=== PATIENT | male | born 1950 | race Caucasian/White ===

== ENCOUNTER → 2017-12-17 08:26 | Outpatient (CLI) | payer OTHER, SELFPAY ==
[2017-12-17 09:25] LABS: Add Manual Diff / Slide Review NO; Basophils Percent Auto 0.6 % (0-2); Eosinophils Percent Auto 2.1 % (2-4); Hematocrit 42.2 % (41-53); Hemoglobin 14.7 g/dL (13.5-17.5); Lymphocytes Percent Auto 22.2 % (25-40); Mean Corpuscular HGB Conc 34.8 % (30-36); Mean Corpuscular Volume 94.7 fL (80-100); Monocytes Percent Auto 8.7 % (3-14); Neutrophils Absolute Auto 3600 /uL (3000-5900); Neutrophils Percent Auto 66.4 % (50-75); Platelet Count 178 X10^3/uL (150-400); Red Blood Cell Count 4.46 X10^6/uL (4.5-5.9); Red Cell Distribution Width 14.5 % (11.6-14.8); White Blood Cell Count 5.4 X10^3/uL (4.5-11.0)
[2017-12-17 09:51] LABS: Alanine Aminotransferase 51 IU/L (21-72); Albumin 4.2 g/dL (3.5-5.0); Albumin Globulin Ratio 1.5 (1.0-2.8); Alkaline Phosphatase 45 U/L (38-126); Aspartate Aminotransferase 37 IU/L (17-59); BUN Creatinine Ratio 18.2 (6-22); Bilirubin Total 0.7 mg/dL (0.2-1.3); Blood Urea Nitrogen 20 mg/dL (9-20); Calcium 9.7 mg/dL (8.4-10.2); Carbon Dioxide 30 mmol/L (22-32); Chloride 98 mmol/L (98-107); Cholesterol 125 mg/dL (140-199); Estimated Glomerular Filt Rate > 60.0 mL/min (>60); Globulin 2.8 g/dL (1.7-4.1); Glucose 107 mg/dL (80-110); HDL Cholesterol 33 mg/dL (40-60); HEMOLYSIS < 15 (0-50); LDL Cholesterol Calculated 61 mg/dL (<100); Potassium 4.3 mmol/L (3.4-5.1); Sodium 139 mmol/L (137-145); Triglycerides 153 mg/dL (35-150)
[2017-12-17 10:20] LABS: Prostate Specific Antigen Scrn 1.99 ng/mL (0.1-4.0)
== END ==
PROVIDERS: Family Provider Internal Medicine; PCP Internal Medicine; Visit Provider Internal Medicine
DX: E66.9 Obesity, unspecified (principal); E78.00 Pure hypercholesterolemia, unspecified
CPT/HCPCS: 36415; 80053; 80061; 85025; G0103

== ENCOUNTER → 2018-02-04 15:55 | Outpatient (CLI) | payer OTHER, SELFPAY ==
--- NOTE | 2018-02-04 | DI.RAD.S_ITS ---
PROCEDURE: XR CHEST 2V INDICATIONS: ACUTE BRONCHITIS TECHNIQUE: 2 views of the chest were acquired. COMPARISON: [facility], , CHEST 2 VIEW, 06/24/2017, 9:55. FINDINGS: Surgical changes and devices: None. Lungs and pleura: No pleural effusions or pneumothorax. Increased bronchovascular markings and bilateral hilar region are seen with mild bronchial wall thickening consistent with reactive airway disease. No definite focal infiltrate. Mediastinum: Mediastinal contours are normal. Heart size is normal. Bones and chest wall: No suspicious bony abnormalities. Soft tissues appear unremarkable. IMPRESSION: Findings consistent with reactive airway disease such as bronchitis or asthma. No definite focal infiltrate. Dictated by: Jamel Castillo M.D. on 02/04/2018 at 16:27 Approved by: Jamel Castillo M.D. on 02/04/2018 at 16:28
== END ==
PROVIDERS: Family Provider Internal Medicine; PCP Internal Medicine; Visit Provider Student in an Organized Health Care Education/Training Program
DX: J20.9 Acute bronchitis, unspecified (principal)
CPT/HCPCS: 71046

== ENCOUNTER → 2018-06-24 08:55 | Outpatient (CLI) | payer OTHER, SELFPAY ==
[2018-06-24 09:29] LABS: Add Manual Diff / Slide Review NO; Basophils Absolute Auto 0 /uL (0-100); Basophils Percent Auto 0.6 % (0-2); Eosinophils Absolute Auto 200 /uL (0-450); Eosinophils Percent Auto 3.1 % (2-4); Hematocrit 42.8 % (41-53); Hemoglobin 14.3 g/dL (13.5-17.5); Lymphocytes Absolute Auto 1400 /uL (1100-4500); Lymphocytes Percent Auto 24.7 % (25-40); Mean Corpuscular HGB Conc 33.4 % (30-36); Mean Corpuscular Hemoglobin 31.5 PG (26-34); Mean Corpuscular Volume 94.4 fL (80-100); Monocytes Absolute Auto 600 /uL (0-900); Monocytes Percent Auto 9.9 % (3-14); Neutrophils Absolute Auto 3600 /uL (1500-7000); Neutrophils Percent Auto 61.7 % (50-75); Platelet Count 226 X10^3/uL (150-400); Red Blood Cell Count 4.53 X10^6/uL (4.5-5.9); Red Cell Distribution Width 14.5 % (11.6-14.8); White Blood Cell Count 5.8 X10^3/uL (4.5-11.0)
[2018-06-24 09:39] LABS: Alanine Aminotransferase 53 IU/L (21-72); Albumin 4.4 g/dL (3.5-5.0); Albumin Globulin Ratio 1.4 (1.0-2.8); Alkaline Phosphatase 50 U/L (38-126); Aspartate Aminotransferase 39 IU/L (17-59); BUN Creatinine Ratio 21.8 (6-22); Blood Urea Nitrogen 24 mg/dL (9-20); Calcium 9.4 mg/dL (8.4-10.2); Carbon Dioxide 26 mmol/L (22-32); Chloride 101 mmol/L (98-107); Estimated Glomerular Filt Rate > 60.0 mL/min (>60); Globulin 3.2 g/dL (1.7-4.1); Glucose 108 mg/dL (80-110); HEMOLYSIS 19 (0-50); Potassium 4.1 mmol/L (3.4-5.1); Sodium 137 mmol/L (137-145); Total Protein 7.6 g/dL (6.3-8.2)
== END ==
PROVIDERS: Family Provider Internal Medicine; PCP Internal Medicine; Visit Provider Internal Medicine
DX: E78.00 Pure hypercholesterolemia, unspecified (principal); I10 Essential (primary) hypertension
CPT/HCPCS: 36415; 80053; 85025

== ENCOUNTER → 2018-12-29 09:12 | Outpatient (CLI) | payer OTHER, SELFPAY ==
[2018-12-29 10:43] LABS: Blood Urea Nitrogen 22 mg/dL (9-20); Calcium 9.8 mg/dL (8.4-10.2); Carbon Dioxide 27 mmol/L (22-32); Chloride 100 mmol/L (98-107); Cholesterol 154 mg/dL (140-199); Estimated Glomerular Filt Rate > 60.0 mL/min (>60); Glucose 102 mg/dL (80-110); HDL Cholesterol 34 mg/dL (40-60); HEMOLYSIS < 15 (0-50); LDL Cholesterol Calculated 86 mg/dL (<100); Potassium 4.1 mmol/L (3.4-5.1); Sodium 138 mmol/L (137-145); Triglycerides 172 mg/dL (35-150)
[2018-12-29 11:13] LABS: Prostate Specific Antigen Scrn 2.01 ng/mL (0.1-4.0)
== END ==
PROVIDERS: PCP Internal Medicine; Visit Provider Internal Medicine
DX: M15.0 Primary generalized (osteo)arthritis (principal); E78.00 Pure hypercholesterolemia, unspecified; F41.1 Generalized anxiety disorder; I10 Essential (primary) hypertension; Z12.5 Encounter for screening for malignant neoplasm of prostate
CPT/HCPCS: 36415; 80048; 80061; G0103

== ENCOUNTER → 2019-01-05 10:01 | Outpatient (CLI) | payer OTHER, SELFPAY ==
--- NOTE | 2019-01-05 | DI.RAD.S_ITS ---
PROCEDURE: XR HIP W PEL IF DONE BILAT 2V INDICATIONS: LEFT HIP PAIN TECHNIQUE: AP pelvis with lateral view(s) of the left and right hip(s). [facility] 14:56. FINDINGS: Bones: No fractures or dislocations. Pelvic ring appears intact. No suspicious bony lesions. Moderate bilateral hip degeneration. Lower lumbar spondylosis. Soft tissues: The visualized bowel gas pattern is normal. No suspicious soft tissue calcifications. IMPRESSION: Moderate bilateral hip degeneration, grossly unchanged since 12/01/13. Dictated by: Esequiel Gupta M.D. on 01/05/2019 at 13:59 Approved by: Esequiel Gupta M.D. on 01/05/2019 at 14:00
== END ==
PROVIDERS: PCP Internal Medicine; Visit Provider Internal Medicine
DX: M25.552 Pain in left hip (principal); M16.0 Bilateral primary osteoarthritis of hip
CPT/HCPCS: 73521

== ENCOUNTER 2019-04-19 11:15 | Outpatient (RCR) | payer OTHER, SELFPAY ==
--- NOTE | 2019-03-03 18:30 | PT.OIE ---
Current Diagnoses Unilateral primary osteoarthritis, left hip (03/03/19) Strain of muscle, fascia and tendon of left hip, initial encounter (03/03/19) Visit Care Team Role Provider Type Alejandro Gallegos MD Primary Care Provider Physician Specialty: Internal Medicine Address: [address] [place] [address], [id number] Email: [email or web address] Matthew Cannon MD Attending Provider Physician Specialty: Orthopedic Surgery Address: [address] [place] [address], [address] Email: [email or web address] Physical Therapy Initial Evaluation PT-OP-A Visit Information Start: 03/03/19 14:55 Freq: Status: Active Protocol: Document 03/03/19 12:48 MB (Rec: 03/03/19 15:04 MB [id number]) Out-Patient Physical Therapy Visit Information Visit Information Visit Type Initial Evaluation Visit Start Time 12:48 Visit Stop Time 13:18 Total Visit Minutes 30 Visit Number 1 Number of SPECIAL WARFARE BOAT OPERATOR Visits 0 Evaluation Information Evaluation Date 03/03/19 PT-OP-B Current Condition Start: 03/03/19 14:55 Freq: Status: Active Protocol: Document 03/03/19 12:48 MB (Rec: 03/03/19 15:04 MB [id number]) Current Condition History of Current Condition Onset Date 5 months Current Complaints LBP and left groin discomfort History of Current Condition Pt reports 5 months of left groin discomfort that started when he was using the elliptical at the gym. Left hip x-ray 01/10/19 revealed mod B hip degenerative changes. Pt reports getting in and out of a blake, getting in and out of the car and standing increase the pain. He describes left hip adduction/ abduction, ER increasing pain. Pt states that wearing a belt increased pain across his low back and left groin and that suspenders help. He reports hx R TKR 2015 and received PT, back sxs in and history of left foot drop, great toe extensor tone, calf cramps, history of crush injury right foot. He denies paresthesias in his legs. His pain increases during the day. It does wake him up hourly. 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 See history of current condition for further details. Patient Reported Progress Same Patient Questionnaires Lower Extremity Functional Scale LEFS Score 23/80 LEFS Impairment 60 to 79% Impaired (Score 17- 31) OP-PT Pain Assessment Location LB and left groin Pain Aggravating Factors Standing Other Pain Aggravating Factors Getting in and out of car, getting in and out of blake, wearing belt PT-OP-D Balance Start: 03/03/19 14:55 Freq: Status: Active Protocol: Document 03/03/19 12:48 MB (Rec: 03/03/19 18:26 MB [id number]) Balance Tests Other Other Balance Tests Performed Pt states that he has to wear shoes d/t old crush injury of right foot. Romberg and Romberg with eyes closed 30 sec. R SLS 7 sec and pt cannot get into left SLS position. PT-OP-J Posture/Palpation/Skin Start: 03/03/19 14:55 Freq: Status: Active Protocol: Document 03/03/19 12:48 MB (Rec: 03/03/19 18:26 MB [id number]) Posture Evaluation Comments Posture Comments Standing: most notable comment is that his trunk translates to the left (SB and rotational ) and his right shoulder and right iliac crest are higher than the left. Also, tragus 2 in front of AC joint, anterior tilt pelvis. PT-OP-M Strength Start: 03/03/19 14:55 Freq: Status: Active Protocol: Document 03/03/19 12:48 MB (Rec: 03/03/19 18:26 MB [id number]) Hip Strength Hip Manual Muscle Testing Left Flexion (L2) 2- Poor- Abduction 3- Fair- Comments Supine Right Flexion (L2) 5 Normal Extension (S1) 4 Good Comments Supine Knee Strength Knee Manual Muscle Testing Left Flexion (S2) 5 Normal Extension (L3) 5 Normal Comments Supine Right Flexion (S2) 5 Normal Extension (L3) 5 Normal Comments Supine Ankle/Foot Strength Ankle and Foot Manual Muscle Testing Left Dorsiflexion (L4) 4 Good Plantarflexion (S1) 4 Good Inversion 4 Good Eversion (S1) 4 Good Comments Great toe 2-/5, tone in extensors Right Dorsiflexion (L4) 5 Normal Plantarflexion (S1) 5 Normal Inversion 5 Normal Eversion (S1) 5 Normal Comments Great toe extension 4/5 PT-OP-T Assessment and Plan Start: 03/03/19 14:55 Freq: Status: Active Protocol: Document 03/03/19 12:48 MB (Rec: 03/03/19 18:26 MB [id number]) Physical Therapy Assessment Rehab Potential Rehabilitation Potential Good Evaluation Complexity Number of Personal Factors/Comorbidities 1-2 Number of Body Systems Impaired 1-2 Impairments Impairments Balance,Gait,Pain,Posture,ROM, Soft Tissue Mobility,Strength, Tone Goals 5 Retirement Goal (LTG) Pt will perform progressive HEP with I by 05/03/19. LTG Duration 8 weeks 4 Retirement Goal (LTG) Pt will present with an improved LE functional index score reflecting no more than 40% impairment by 05/03/19. LTG Duration 8 weeks 3 Retirement Goal (LTG) Pt will report a 75% improvement in LB and left groin pain by 05/03/19. LTG Duration 8 weeks 2 Impairment Weakness Retirement Goal (LTG) Pt will present with B hip abduction and flexion to 5/5 by 05/03/19. LTG Duration 8 weeks 1 Impairment Decreased balance Billet Checker Goal (LTG) Pt will be able to perform B Tandem for 30 sec by 05/03/19. LTG Duration 8 weeks Assessment Summary Assessment Pt is a 68 y/o male presenting with LB and left groin pain. He presents with postural changes, pelvic obliquities, weakness, decreased flexibility and poor balance. He will benefit from PT for balance, strengthening, flexibility, pelvic realignment and manual treatments. Physical Therapy Plan Frequency and Duration Frequency of Treatment 2x/Week Duration of Treatment 8 weeks Plan of Care Start Date 03/03/19 Plan of Care End Date 05/03/19 Therapeutic Interventions Therapeutic Interventions Aquatic Therapy,Balance Training,Coordination Training ,Gait Training,Home Exercise Program,Joint Mobilizations, Manual Therapy,Neuromuscular Re-education,Patient/Caregiver Education,Self-Care/Home Management,Soft Tissue Mobilization,Taping, Therapeutic Exercises Modalities Cold Pack/Ice Massage,Electric Stimulation,Hot Packs, Ultrasound Next Visit Focus/Plan Next Note Type Treatment Note Next Visit Plan Initiated pelvic realignment exercises versus flexibility
--- NOTE | 2019-03-03 18:30 | PT.OPPOC ---
Current Diagnoses Unilateral primary osteoarthritis, left hip (03/03/19) Strain of muscle, fascia and tendon of left hip, initial encounter (03/03/19) Visit Care Team Role Provider Type Alejandro Gallegos MD Primary Care Provider Physician Specialty: Internal Medicine Address: [address] [place] [address], [address] Email: [email or web address] Matthew Cannon MD Attending Provider Physician Specialty: Orthopedic Surgery Address: [address] [place] [address], [address] Email: [email or web address] Plan Of Care PT-OP-T Assessment and Plan Start: 03/03/19 14:55 Freq: Status: Active Protocol: Document 03/03/19 12:48 MB (Rec: 03/03/19 18:26 MB [id number]) Physical Therapy Assessment Rehab Potential Rehabilitation Potential Good Evaluation Complexity Number of Personal Factors/Comorbidities 1-2 Number of Body Systems Impaired 1-2 Impairments Impairments Balance,Gait,Pain,Posture,ROM, Soft Tissue Mobility,Strength, Tone Goals 5 Custodial Goal (LTG) Pt will perform progressive HEP with I by 05/03/19. LTG Duration 8 weeks 4 Physician Recruiter Goal (LTG) Pt will present with an improved LE functional index score reflecting no more than 40% impairment by 05/03/19. LTG Duration 8 weeks 3 Custodial Goal (LTG) Pt will report a 75% improvement in LB and left groin pain by 05/03/19. LTG Duration 8 weeks 2 Impairment Weakness Physician Recruiter Goal (LTG) Pt will present with B hip abduction and flexion to 5/5 by 05/03/19. LTG Duration 8 weeks 1 Impairment Decreased balance Physician Recruiter Goal (LTG) Pt will be able to perform B Tandem for 30 sec by 05/03/19. LTG Duration 8 weeks Assessment Summary Assessment Pt is a 68 y/o male presenting with LB and left groin pain. He presents with postural changes, pelvic obliquities, weakness, decreased flexibility and poor balance. He will benefit from PT for balance, strengthening, flexibility, pelvic realignment and manual treatments. Physical Therapy Plan Frequency and Duration Frequency of Treatment 2x/Week Duration of Treatment 8 weeks Plan of Care Start Date 03/03/19 Plan of Care End Date 05/03/19 Therapeutic Interventions Therapeutic Interventions Aquatic Therapy,Balance Training,Coordination Training ,Gait Training,Home Exercise Program,Joint Mobilizations, Manual Therapy,Neuromuscular Re-education,Patient/Caregiver Education,Self-Care/Home Management,Soft Tissue Mobilization,Taping, Therapeutic Exercises Modalities Cold Pack/Ice Massage,Electric Stimulation,Hot Packs, Ultrasound Next Visit Focus/Plan Next Note Type Treatment Note Next Visit Plan Initiated pelvic realignment exercises versus flexibility Plan of Care Dates Plan of Care Start Date 03/03/19 Plan of Care End Date 05/03/19
--- NOTE | 2019-03-05 12:57 | PT.OTN ---
Current Diagnoses Unilateral primary osteoarthritis, left hip (03/05/19) Strain of muscle, fascia and tendon of left hip, initial encounter (03/05/19) Physical Therapy Treatment Note PT-OP-A Visit Information Start: 03/03/19 14:55 Freq: Status: Active Protocol: Document 03/05/19 12:13 MB (Rec: 03/05/19 12:34 MB [id number]) Out-Patient Physical Therapy Visit Information Visit Information Visit Type Treatment Note Visit Start Time 12:13 Visit Stop Time 12:53 Total Visit Minutes 40 Visit Number 2/15 Number of DRILL OPERATOR Visits 0 PT-OP-B Current Condition Start: 03/03/19 14:55 Freq: Status: Active Protocol: Document 03/03/19 12:48 MB (Rec: 03/03/19 15:04 MB [id number]) Current Condition History of Current Condition Onset Date 5 months Current Complaints LBP and left groin discomfort History of Current Condition Pt reports 5 months of left groin discomfort that started when he was using the elliptical at the gym. Left hip x-ray 01/10/19 revealed mod B hip degenerative changes. Pt reports getting in and out of a blake, getting in and out of the car and standing increase the pain. He describes left hip adduction/ abduction, ER increasing pain. Pt states that wearing a belt increased pain across his low back and left groin and that suspenders help. He reports hx R TKR 2015 and received PT, back sxs in and history of left foot drop, great toe extensor tone, calf cramps, history of crush injury right foot. He denies paresthesias in his legs. His pain increases during the day. It does wake him up hourly. 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 He was sore after walking yesterday. He wonders about the PT plan. PT-OP-D Balance Start: 03/03/19 14:55 Freq: Status: Active Protocol: Document 03/03/19 12:48 MB (Rec: 03/03/19 18:26 MB [id number]) Balance Tests Other Other Balance Tests Performed Pt states that he has to wear shoes d/t old crush injury of right foot. Romberg and Romberg with eyes closed 30 sec. R SLS 7 sec and pt cannot get into left SLS position. PT-OP-J Posture/Palpation/Skin Start: 03/03/19 14:55 Freq: Status: Active Protocol: Document 03/03/19 12:48 MB (Rec: 03/03/19 18:26 MB [id number]) Posture Evaluation Comments Posture Comments Standing: most notable comment is that his trunk translates to the left (SB and rotational ) and his right shoulder and right iliac crest are higher than the left. Also, tragus 2 in front of AC joint, anterior tilt pelvis. PT-OP-M Strength Start: 03/03/19 14:55 Freq: Status: Active Protocol: Document 03/03/19 12:48 MB (Rec: 03/03/19 18:26 MB [id number]) Hip Strength Hip Manual Muscle Testing Left Flexion (L2) 2- Poor- Abduction 3- Fair- Comments Supine Right Flexion (L2) 5 Normal Extension (S1) 4 Good Comments Supine Knee Strength Knee Manual Muscle Testing Left Flexion (S2) 5 Normal Extension (L3) 5 Normal Comments Supine Right Flexion (S2) 5 Normal Extension (L3) 5 Normal Comments Supine Ankle/Foot Strength Ankle and Foot Manual Muscle Testing Left Dorsiflexion (L4) 4 Good Plantarflexion (S1) 4 Good Inversion 4 Good Eversion (S1) 4 Good Comments Great toe 2-/5, tone in extensors Right Dorsiflexion (L4) 5 Normal Plantarflexion (S1) 5 Normal Inversion 5 Normal Eversion (S1) 5 Normal Comments Great toe extension 4/5 PT-OP-Q Treatments Start: 03/03/19 14:55 Freq: Status: Active Protocol: Document 03/05/19 12:13 MB (Rec: 03/05/19 12:38 MB [id number]) Cardio Equipment Recumbent Stepper (Sci-Fit) Duration (Minutes) 10 Resistance 1.5-2 Therapeutic Exercises Supine Exercises Pelvic realignment ex Comments Pelvic realignment exercises Hamstring, calf and AP stretch Comments Hamstring, calf and AP stretch with belt, abd/add PT-OP-T Assessment and Plan Start: 03/03/19 14:55 Freq: Status: Active Protocol: Document 03/05/19 12:13 MB (Rec: 03/05/19 12:38 MB [id number]) Physical Therapy Plan Frequency and Duration Frequency of Treatment 2x/Week Duration of Treatment 8 weeks Plan of Care Start Date 03/03/19 Plan of Care End Date 05/03/19 Therapeutic Interventions Therapeutic Interventions Aquatic Therapy,Balance Training,Coordination Training ,Gait Training,Home Exercise Program,Joint Mobilizations, Manual Therapy,Neuromuscular Re-education,Patient/Caregiver Education,Self-Care/Home Management,Soft Tissue Mobilization,Taping, Therapeutic Exercises Modalities Cold Pack/Ice Massage,Electric Stimulation,Hot Packs, Ultrasound Next Visit Focus/Plan Next Note Type Treatment Note Next Visit Plan Consider hip flexor stretch and manual work
--- NOTE | 2019-03-09 11:14 | PT.OTN ---
Current Diagnoses Unilateral primary osteoarthritis, left hip (03/09/19) Strain of muscle, fascia and tendon of left hip, initial encounter (03/09/19) Physical Therapy Treatment Note PT-OP-A Visit Information Start: 03/03/19 14:55 Freq: Status: Active Protocol: Document 03/09/19 10:31 MB (Rec: 03/09/19 11:13 MB [id number]) Out-Patient Physical Therapy Visit Information Visit Information Visit Type Treatment Note Visit Start Time 10:31 Visit Stop Time 11:11 Total Visit Minutes 40 Visit Number 315 Number of COPY MACHINE OPERATOR Visits 0 PT-OP-B Current Condition Start: 03/03/19 14:55 Freq: Status: Active Protocol: Document 03/03/19 12:48 MB (Rec: 03/03/19 15:04 MB [id number]) Current Condition History of Current Condition Onset Date 5 months Current Complaints LBP and left groin discomfort History of Current Condition Pt reports 5 months of left groin discomfort that started when he was using the elliptical at the gym. Left hip x-ray 01/10/19 revealed mod B hip degenerative changes. Pt reports getting in and out of a blake, getting in and out of the car and standing increase the pain. He describes left hip adduction/ abduction, ER increasing pain. Pt states that wearing a belt increased pain across his low back and left groin and that suspenders help. He reports hx R TKR 2015 and received PT, back sxs in and history of left foot drop, great toe extensor tone, calf cramps, history of crush injury right foot. He denies paresthesias in his legs. His pain increases during the day. It does wake him up hourly. Prior Treatments and Tests PT, good response Right knee and back sxs Treatment Goals Patient/Caregiver Goals To decrease pain and be able to get back on his sail boat Personal Factors Other Personal Factors That May Effect History of multi-joint changes Therapy/Recovery and pain, back, right knee surgeries PT-OP-C Subjective Start: 03/03/19 14:55 Freq: Status: Active Protocol: Document 03/09/19 10:31 MB (Rec: 03/09/19 11:13 MB [id number]) OP-PT Subjective Patient Comments Patient Comments Pt did not sleep well two nights ago. He is usually what caused pain across the top of his foot. He has toe nail fungus. PT-OP-D Balance Start: 03/03/19 14:55 Freq: Status: Active Protocol: Document 03/03/19 12:48 MB (Rec: 03/03/19 18:26 MB [id number]) Balance Tests Other Other Balance Tests Performed Pt states that he has to wear shoes d/t old crush injury of right foot. Romberg and Romberg with eyes closed 30 sec. R SLS 7 sec and pt cannot get into left SLS position. PT-OP-J Posture/Palpation/Skin Start: 03/03/19 14:55 Freq: Status: Active Protocol: Document 03/03/19 12:48 MB (Rec: 03/03/19 18:26 MB [id number]) Posture Evaluation Comments Posture Comments Standing: most notable comment is that his trunk translates to the left (SB and rotational ) and his right shoulder and right iliac crest are higher than the left. Also, tragus 2 in front of AC joint, anterior tilt pelvis. PT-OP-M Strength Start: 03/03/19 14:55 Freq: Status: Active Protocol: Document 03/03/19 12:48 MB (Rec: 03/03/19 18:26 MB [id number]) Hip Strength Hip Manual Muscle Testing Left Flexion (L2) 2- Poor- Abduction 3- Fair- Comments Supine Right Flexion (L2) 5 Normal Extension (S1) 4 Good Comments Supine Knee Strength Knee Manual Muscle Testing Left Flexion (S2) 5 Normal Extension (L3) 5 Normal Comments Supine Right Flexion (S2) 5 Normal Extension (L3) 5 Normal Comments Supine Ankle/Foot Strength Ankle and Foot Manual Muscle Testing Left Dorsiflexion (L4) 4 Good Plantarflexion (S1) 4 Good Inversion 4 Good Eversion (S1) 4 Good Comments Great toe 2-/5, tone in extensors Right Dorsiflexion (L4) 5 Normal Plantarflexion (S1) 5 Normal Inversion 5 Normal Eversion (S1) 5 Normal Comments Great toe extension 4/5 PT-OP-Q Treatments Start: 03/03/19 14:55 Freq: Status: Active Protocol: Document 03/09/19 10:31 MB (Rec: 03/09/19 11:13 MB [id number]) Therapeutic Exercises Supine Exercises Pelvic realignment ex Comments Pelvic realignment exercises Other Exercises Hip flexor stretch Comments Trino stretch Manual Therapy Treatment Manual Techniques STM iliopsoas and quads with MWM Comments Pt hook lying--slides heel up and down mat or flexes and bends knees over edge for iliopsoas and rectus and vastus lateralis MWM with PT putting pressure on trigger points PT-OP-T Assessment and Plan Start: 03/03/19 14:55 Freq: Status: Active Protocol: Document 03/09/19 10:31 MB (Rec: 03/09/19 11:13 MB [id number]) Physical Therapy Assessment Assessment Summary Assessment Initiated hip flexor stretch this date and manual work. Pt is getting on his boat during the weekends, sleeping there. Physical Therapy Plan Frequency and Duration Frequency of Treatment 2x/Week Duration of Treatment 8 weeks Plan of Care Start Date 03/03/19 Plan of Care End Date 05/03/19 Next Visit Focus/Plan Next Note Type Treatment Note Next Visit Plan Consider core progression in hook lying or standing hip abduction and extension exercises.
--- NOTE | 2019-03-11 11:27 | PT.OTN ---
Current Diagnoses Unilateral primary osteoarthritis, left hip (03/11/19) Strain of muscle, fascia and tendon of left hip, initial encounter (03/11/19) Physical Therapy Treatment Note PT-OP-A Visit Information Start: 03/03/19 14:55 Freq: Status: Active Protocol: Document 03/11/19 10:29 MB (Rec: 03/11/19 11:21 MB [id number]) Out-Patient Physical Therapy Visit Information Visit Information Visit Type Treatment Note Visit Start Time 10: Visit Stop Time 11:14 Total Visit Minutes 45 Visit Number 4/15 Number of SHOP TAILOR Visits 0 PT-OP-B Current Condition Start: 03/03/19 14:55 Freq: Status: Active Protocol: Document 03/03/19 12:48 MB (Rec: 03/03/19 15:04 MB [id number]) Current Condition History of Current Condition Onset Date 5 months Current Complaints LBP and left groin discomfort History of Current Condition Pt reports 5 months of left groin discomfort that started when he was using the elliptical at the gym. Left hip x-ray 01/10/19 revealed mod B hip degenerative changes. Pt reports getting in and out of a blake, getting in and out of the car and standing increase the pain. He describes left hip adduction/ abduction, ER increasing pain. Pt states that wearing a belt increased pain across his low back and left groin and that suspenders help. He reports hx R TKR 2015 and received PT, back sxs in and history of left foot drop, great toe extensor tone, calf cramps, history of crush injury right foot. He denies paresthesias in his legs. His pain increases during the day. It does wake him up hourly. 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 PT-OP-D Balance Start: 03/03/19 14:55 Freq: Status: Active Protocol: Document 03/03/19 12:48 MB (Rec: 03/03/19 18:26 MB [id number]) Balance Tests Other Other Balance Tests Performed Pt states that he has to wear shoes d/t old crush injury of right foot. Romberg and Romberg with eyes closed 30 sec. R SLS 7 sec and pt cannot get into left SLS position. PT-OP-J Posture/Palpation/Skin Start: 03/03/19 14:55 Freq: Status: Active Protocol: Document 03/03/19 12:48 MB (Rec: 03/03/19 18:26 MB [id number]) Posture Evaluation Comments Posture Comments Standing: most notable comment is that his trunk translates to the left (SB and rotational ) and his right shoulder and right iliac crest are higher than the left. Also, tragus 2 in front of AC joint, anterior tilt pelvis. PT-OP-M Strength Start: 03/03/19 14:55 Freq: Status: Active Protocol: Document 03/03/19 12:48 MB (Rec: 03/03/19 18:26 MB [id number]) Hip Strength Hip Manual Muscle Testing Left Flexion (L2) 2- Poor- Abduction 3- Fair- Comments Supine Right Flexion (L2) 5 Normal Extension (S1) 4 Good Comments Supine Knee Strength Knee Manual Muscle Testing Left Flexion (S2) 5 Normal Extension (L3) 5 Normal Comments Supine Right Flexion (S2) 5 Normal Extension (L3) 5 Normal Comments Supine Ankle/Foot Strength Ankle and Foot Manual Muscle Testing Left Dorsiflexion (L4) 4 Good Plantarflexion (S1) 4 Good Inversion 4 Good Eversion (S1) 4 Good Comments Great toe 2-/5, tone in extensors Right Dorsiflexion (L4) 5 Normal Plantarflexion (S1) 5 Normal Inversion 5 Normal Eversion (S1) 5 Normal Comments Great toe extension 4/5 PT-OP-Q Treatments Start: 03/03/19 14:55 Freq: Status: Active Protocol: Document 03/11/19 10:29 MB (Rec: 03/11/19 11:21 MB [id number]) Cardio Equipment Bicycle (Upright) Duration (Minutes) 7 Seat Position 10-12 Therapeutic Exercises Supine Exercises Pelvic realignment ex Comments Pelvic realignment exercises Hamstring, calf and AP stretch Comments Hamstring, calf and AP stretch with belt, abd/add Standing Exercises Racquet ball massage glutes, TFL Comments Standing glute and TFL self- massage Other Exercises Hip flexor stretch Comments Trino stretch PT-OP-T Assessment and Plan Start: 03/03/19 14:55 Freq: Status: Active Protocol: Document 03/11/19 10:29 MB (Rec: 03/11/19 11:21 MB [id number]) Physical Therapy Assessment Goals 5 Mcc Goal (LTG) Pt will perform progressive HEP with I by 05/03/19. LTG Duration 8 weeks 4 Quartz Miner Blasting Goal (LTG) Pt will present with an improved LE functional index score reflecting no more than 40% impairment by 05/03/19. LTG Duration 8 weeks 3 Quartz Miner Blasting Goal (LTG) Pt will report a 75% improvement in LB and left groin pain by 05/03/19. LTG Duration 8 weeks 2 Impairment Weakness Quartz Miner Blasting Goal (LTG) Pt will present with B hip abduction and flexion to 5/5 by 05/03/19. LTG Duration 8 weeks 1 Impairment Decreased balance Quartz Miner Blasting Goal (LTG) Pt will be able to perform B Tandem for 30 sec by 05/03/19. LTG Duration 8 weeks Assessment Summary Assessment Initiated self-massage this date. Progress strengthening. Physical Therapy Plan Frequency and Duration Frequency of Treatment 2x/Week Duration of Treatment 8 weeks Plan of Care Start Date 03/03/19 Plan of Care End Date 05/03/19 Next Visit Focus/Plan Next Note Type Treatment Note Next Visit Plan Consider core progression in hook lying or standing hip abduction and extension exercises.
--- NOTE | 2019-03-16 11:07 | PT.OTN ---
Current Diagnoses Unilateral primary osteoarthritis, left hip (03/16/19) Strain of muscle, fascia and tendon of left hip, initial encounter (03/16/19) Physical Therapy Treatment Note PT-OP-A Visit Information Start: 03/03/19 14:55 Freq: Status: Active Protocol: Document 03/16/19 10:27 MB (Rec: 03/16/19 10:35 MB [id number]) Out-Patient Physical Therapy Visit Information Visit Information Visit Type Treatment Note Visit Start Time 10: Visit Stop Time 11:07 Total Visit Minutes 40 Visit Number 10/07 Number of COAL SHOOTER Visits 0 PT-OP-B Current Condition Start: 03/03/19 14:55 Freq: Status: Active Protocol: Document 03/03/19 12:48 MB (Rec: 03/03/19 15:04 MB [id number]) Current Condition History of Current Condition Onset Date 5 months Current Complaints LBP and left groin discomfort History of Current Condition Pt reports 5 months of left groin discomfort that started when he was using the elliptical at the gym. Left hip x-ray 01/10/19 revealed mod B hip degenerative changes. Pt reports getting in and out of a blake, getting in and out of the car and standing increase the pain. He describes left hip adduction/ abduction, ER increasing pain. Pt states that wearing a belt increased pain across his low back and left groin and that suspenders help. He reports hx R TKR 2015 and received PT, back sxs in and history of left foot drop, great toe extensor tone, calf cramps, history of crush injury right foot. He denies paresthesias in his legs. His pain increases during the day. It does wake him up hourly. Prior Treatments and Tests PT, good response Right knee and back sxs Treatment Goals Patient/Caregiver Goals To decrease pain and be able to get back on his sail boat Personal Factors Other Personal Factors That May Effect History of multi-joint changes Therapy/Recovery and pain, back, right knee surgeries PT-OP-C Subjective Start: 03/03/19 14:55 Freq: Status: Active Protocol: Document 03/16/19 10:27 MB (Rec: 03/16/19 10:35 MB [id number]) OP-PT Subjective Patient Comments Patient Comments Pt states that he is feeling better today. He had a rough weekend after several activities. He experienced pain in left lateral hip and anterior hip muscles. He had to take Vicadin on Friday and Alleve on Friday night. PT-OP-D Balance Start: 03/03/19 14:55 Freq: Status: Active Protocol: Document 03/03/19 12:48 MB (Rec: 03/03/19 18:26 MB [id number]) Balance Tests Other Other Balance Tests Performed Pt states that he has to wear shoes d/t old crush injury of right foot. Romberg and Romberg with eyes closed 30 sec. R SLS 7 sec and pt cannot get into left SLS position. PT-OP-J Posture/Palpation/Skin Start: 03/03/19 14:55 Freq: Status: Active Protocol: Document 03/03/19 12:48 MB (Rec: 03/03/19 18:26 MB [id number]) Posture Evaluation Comments Posture Comments Standing: most notable comment is that his trunk translates to the left (SB and rotational ) and his right shoulder and right iliac crest are higher than the left. Also, tragus 2 in front of AC joint, anterior tilt pelvis. PT-OP-M Strength Start: 03/03/19 14:55 Freq: Status: Active Protocol: Document 03/03/19 12:48 MB (Rec: 03/03/19 18:26 MB [id number]) Hip Strength Hip Manual Muscle Testing Left Flexion (L2) 2- Poor- Abduction 3- Fair- Comments Supine Right Flexion (L2) 5 Normal Extension (S1) 4 Good Comments Supine Knee Strength Knee Manual Muscle Testing Left Flexion (S2) 5 Normal Extension (L3) 5 Normal Comments Supine Right Flexion (S2) 5 Normal Extension (L3) 5 Normal Comments Supine Ankle/Foot Strength Ankle and Foot Manual Muscle Testing Left Dorsiflexion (L4) 4 Good Plantarflexion (S1) 4 Good Inversion 4 Good Eversion (S1) 4 Good Comments Great toe 2-/5, tone in extensors Right Dorsiflexion (L4) 5 Normal Plantarflexion (S1) 5 Normal Inversion 5 Normal Eversion (S1) 5 Normal Comments Great toe extension 4/5 PT-OP-Q Treatments Start: 03/03/19 14:55 Freq: Status: Active Protocol: Document 03/16/19 10:27 MB (Rec: 03/16/19 10:44 MB [id number]) Cardio Equipment Bicycle (Upright) Duration (Minutes) 7 Seat Position 10-12 Therapeutic Exercises Supine Exercises Core progression Comments For HEP: pelvic tilt, HS, rocking with core Standing Exercises Racquet ball massage glutes, TFL Comments Standing glute and TFL self- massage Manual Therapy Treatment Other Other Manual Treatments MWM left glute min and med, TFL with PT presses trigger point and pt rotating hip in hook lying PT-OP-T Assessment and Plan Start: 03/03/19 14:55 Freq: Status: Active Protocol: Document 03/16/19 10:27 MB (Rec: 03/16/19 10:35 MB [id number]) Physical Therapy Assessment Goals 5 Senior Care Goal (LTG) Pt will perform progressive HEP with I by 05/03/19. LTG Duration 8 weeks 4 State Trooper Goal (LTG) Pt will present with an improved LE functional index score reflecting no more than 40% impairment by 05/03/19. LTG Duration 8 weeks 3 State Trooper Goal (LTG) Pt will report a 75% improvement in LB and left groin pain by 05/03/19. LTG Duration 8 weeks 2 Impairment Weakness Senior Care Goal (LTG) Pt will present with B hip abduction and flexion to 5/5 by 05/03/19. LTG Duration 8 weeks 1 Impairment Decreased balance Senior Care Goal (LTG) Pt will be able to perform B Tandem for 30 sec by 05/03/19. LTG Duration 8 weeks Assessment Summary Assessment Pt con't with occ sharp lateral left hip pain and PT is concerned about degenerative or other changes. He states that anything that twists is a problem. Physical Therapy Plan Frequency and Duration Frequency of Treatment 2x/Week Duration of Treatment 8 weeks Plan of Care Start Date 03/03/19 Plan of Care End Date 05/03/19 Next Visit Focus/Plan Next Note Type Treatment Note Next Visit Plan Initiated core progression this date. Consider abduction and extension exercises.
--- NOTE | 2019-03-18 11:14 | PT.OTN ---
Current Diagnoses Unilateral primary osteoarthritis, left hip (03/18/19) Strain of muscle, fascia and tendon of left hip, initial encounter (03/18/19) Physical Therapy Treatment Note PT-OP-A Visit Information Start: 03/03/19 14:55 Freq: Status: Active Protocol: Document 03/18/19 10:33 MB (Rec: 03/18/19 11:14 MB [id number]) Out-Patient Physical Therapy Visit Information Visit Information Visit Type Treatment Note Visit Start Time 10:33 Visit Stop Time 11:11 Total Visit Minutes 38 Visit Number 11/07 Number of HOUSE WIRER HELPER Visits 0 PT-OP-B Current Condition Start: 03/03/19 14:55 Freq: Status: Active Protocol: Document 03/03/19 12:48 MB (Rec: 03/03/19 15:04 MB [id number]) Current Condition History of Current Condition Onset Date 5 months Current Complaints LBP and left groin discomfort History of Current Condition Pt reports 5 months of left groin discomfort that started when he was using the elliptical at the gym. Left hip x-ray 01/10/19 revealed mod B hip degenerative changes. Pt reports getting in and out of a blake, getting in and out of the car and standing increase the pain. He describes left hip adduction/ abduction, ER increasing pain. Pt states that wearing a belt increased pain across his low back and left groin and that suspenders help. He reports hx R TKR 2015 and received PT, back sxs in and history of left foot drop, great toe extensor tone, calf cramps, history of crush injury right foot. He denies paresthesias in his legs. His pain increases during the day. It does wake him up hourly. Prior Treatments and Tests PT, good response Right knee and back sxs Treatment Goals Patient/Caregiver Goals To decrease pain and be able to get back on his sail boat Personal Factors Other Personal Factors That May Effect History of multi-joint changes Therapy/Recovery and pain, back, right knee surgeries PT-OP-C Subjective Start: 03/03/19 14:55 Freq: Status: Active Protocol: Document 03/18/19 10:33 MB (Rec: 03/18/19 11:14 MB [id number]) OP-PT Subjective Patient Comments Patient Comments Pt states that he is a little sore. He thinks he has joint pain in the left hip. He forgot to take Advil this morning and has been taking 2- 3x/day. PT-OP-D Balance Start: 03/03/19 14:55 Freq: Status: Active Protocol: Document 03/03/19 12:48 MB (Rec: 03/03/19 18:26 MB [id number]) Balance Tests Other Other Balance Tests Performed Pt states that he has to wear shoes d/t old crush injury of right foot. Romberg and Romberg with eyes closed 30 sec. R SLS 7 sec and pt cannot get into left SLS position. PT-OP-J Posture/Palpation/Skin Start: 03/03/19 14:55 Freq: Status: Active Protocol: Document 03/03/19 12:48 MB (Rec: 03/03/19 18:26 MB [id number]) Posture Evaluation Comments Posture Comments Standing: most notable comment is that his trunk translates to the left (SB and rotational ) and his right shoulder and right iliac crest are higher than the left. Also, tragus 2 in front of AC joint, anterior tilt pelvis. PT-OP-M Strength Start: 03/03/19 14:55 Freq: Status: Active Protocol: Document 03/03/19 12:48 MB (Rec: 03/03/19 18:26 MB [id number]) Hip Strength Hip Manual Muscle Testing Left Flexion (L2) 2- Poor- Abduction 3- Fair- Comments Supine Right Flexion (L2) 5 Normal Extension (S1) 4 Good Comments Supine Knee Strength Knee Manual Muscle Testing Left Flexion (S2) 5 Normal Extension (L3) 5 Normal Comments Supine Right Flexion (S2) 5 Normal Extension (L3) 5 Normal Comments Supine Ankle/Foot Strength Ankle and Foot Manual Muscle Testing Left Dorsiflexion (L4) 4 Good Plantarflexion (S1) 4 Good Inversion 4 Good Eversion (S1) 4 Good Comments Great toe 2-/5, tone in extensors Right Dorsiflexion (L4) 5 Normal Plantarflexion (S1) 5 Normal Inversion 5 Normal Eversion (S1) 5 Normal Comments Great toe extension 4/5 PT-OP-Q Treatments Start: 03/03/19 14:55 Freq: Status: Active Protocol: Document 03/18/19 10:33 MB (Rec: 03/18/19 11:14 MB [id number]) Therapeutic Exercises Supine Exercises Trino stretch Comments B LEs, 30 sec Core progression Comments For HEP: pelvic tilt, HS, rocking with core Standing Exercises Hip extension and abduction with band Comments Hip abduction and extension with level 1 band PT-OP-T Assessment and Plan Start: 03/03/19 14:55 Freq: Status: Active Protocol: Document 03/18/19 10:33 MB (Rec: 03/18/19 11:14 MB [id number]) Physical Therapy Assessment Goals 4 Plaster Mechanic Goal (LTG) Pt will present with an improved LE functional index score reflecting no more than 40% impairment by 05/03/19. LTG Duration 8 weeks 3 Intermediate Goal (LTG) Pt will report a 75% improvement in LB and left groin pain by 05/03/19. LTG Duration 8 weeks 2 Impairment Weakness Intermediate Goal (LTG) Pt will present with B hip abduction and flexion to 5/5 by 05/03/19. LTG Duration 8 weeks 1 Impairment Decreased balance Intermediate Goal (LTG) Pt will be able to perform B Tandem for 30 sec by 05/03/19. LTG Duration 8 weeks Assessment Summary Assessment Pt con't with occ sharp lateral left hip pain and PT is concerned about degenerative or other changes. He states that anything that twists is a problem. Physical Therapy Plan Frequency and Duration Frequency of Treatment 2x/Week Duration of Treatment 8 weeks Plan of Care Start Date 03/03/19 Plan of Care End Date 05/03/19 Next Visit Focus/Plan Next Note Type Treatment Note Next Visit Plan Consider crab walking and balance training and ankle strengthening. Consider rolling pin massage.
--- NOTE | 2019-03-22 13:19 | PT.OTN ---
Current Diagnoses Unilateral primary osteoarthritis, left hip (03/22/19) Strain of muscle, fascia and tendon of left hip, initial encounter (03/22/19) Physical Therapy Treatment Note PT-OP-A Visit Information Start: 03/03/19 14:55 Freq: Status: Active Protocol: Document 03/22/19 12:18 MB (Rec: 03/22/19 12:24 MB [id number]) Out-Patient Physical Therapy Visit Information Visit Information Visit Type Treatment Note Visit Start Time 12:18 Visit Stop Time 13:00 Total Visit Minutes 42 Visit Number 11/07 Number of EXCELLENCE MANAGER Visits 0 PT-OP-B Current Condition Start: 03/03/19 14:55 Freq: Status: Active Protocol: Document 03/03/19 12:48 MB (Rec: 03/03/19 15:04 MB [id number]) Current Condition History of Current Condition Onset Date 5 months Current Complaints LBP and left groin discomfort History of Current Condition Pt reports 5 months of left groin discomfort that started when he was using the elliptical at the gym. Left hip x-ray 01/10/19 revealed mod B hip degenerative changes. Pt reports getting in and out of a blake, getting in and out of the car and standing increase the pain. He describes left hip adduction/ abduction, ER increasing pain. Pt states that wearing a belt increased pain across his low back and left groin and that suspenders help. He reports hx R TKR 2015 and received PT, back sxs in and history of left foot drop, great toe extensor tone, calf cramps, history of crush injury right foot. He denies paresthesias in his legs. His pain increases during the day. It does wake him up hourly. Prior Treatments and Tests PT, good response Right knee and back sxs Treatment Goals Patient/Caregiver Goals To decrease pain and be able to get back on his sail boat Personal Factors Other Personal Factors That May Effect History of multi-joint changes Therapy/Recovery and pain, back, right knee surgeries PT-OP-C Subjective Start: 03/03/19 14:55 Freq: Status: Active Protocol: Document 03/22/19 12:18 MB (Rec: 03/22/19 13:09 MB [id number]) OP-PT Subjective Patient Comments Patient Comments Pt states that the weekend was brutal. Mostly, it was when he was standing [place] [employer]. He could hardly stand it after half and hour. He see Dr. Cannon 03/30/19. He thinks he would like to con't with PT until he returns to see Dr. Cannon. PT-OP-D Balance Start: 03/03/19 14:55 Freq: Status: Active Protocol: Document 03/03/19 12:48 MB (Rec: 03/03/19 18:26 MB [id number]) Balance Tests Other Other Balance Tests Performed Pt states that he has to wear shoes d/t old crush injury of right foot. Romberg and Romberg with eyes closed 30 sec. R SLS 7 sec and pt cannot get into left SLS position. PT-OP-J Posture/Palpation/Skin Start: 03/03/19 14:55 Freq: Status: Active Protocol: Document 03/03/19 12:48 MB (Rec: 03/03/19 18:26 MB [id number]) Posture Evaluation Comments Posture Comments Standing: most notable comment is that his trunk translates to the left (SB and rotational ) and his right shoulder and right iliac crest are higher than the left. Also, tragus 2 in front of AC joint, anterior tilt pelvis. PT-OP-M Strength Start: 03/03/19 14:55 Freq: Status: Active Protocol: Document 03/03/19 12:48 MB (Rec: 03/03/19 18:26 MB [id number]) Hip Strength Hip Manual Muscle Testing Left Flexion (L2) 2- Poor- Abduction 3- Fair- Comments Supine Right Flexion (L2) 5 Normal Extension (S1) 4 Good Comments Supine Knee Strength Knee Manual Muscle Testing Left Flexion (S2) 5 Normal Extension (L3) 5 Normal Comments Supine Right Flexion (S2) 5 Normal Extension (L3) 5 Normal Comments Supine Ankle/Foot Strength Ankle and Foot Manual Muscle Testing Left Dorsiflexion (L4) 4 Good Plantarflexion (S1) 4 Good Inversion 4 Good Eversion (S1) 4 Good Comments Great toe 2-/5, tone in extensors Right Dorsiflexion (L4) 5 Normal Plantarflexion (S1) 5 Normal Inversion 5 Normal Eversion (S1) 5 Normal Comments Great toe extension 4/5 PT-OP-Q Treatments Start: 03/03/19 14:55 Freq: Status: Active Protocol: Document 03/22/19 12:18 MB (Rec: 03/22/19 13:09 MB [id number]) Cardio Equipment Bicycle (Upright) Duration (Minutes) 7 Seat Position 10-12 Therapeutic Exercises Supine Exercises Trino stretch Comments B LEs, 30 sec Sitting Exercises Ankle DF and eversion with teal band Comments Ankle DF and eversion with teal band Rolling pin massage Comments Rolling pin massage quads Standing Exercises Crab walking with light blue band, level 1 Comments Crab walking with light blue band, level 1 Hip abduction and extension with band Comments Hip extension and abduction with band--teal PT-OP-T Assessment and Plan Start: 03/03/19 14:55 Freq: Status: Active Protocol: Document 03/22/19 12:18 MB (Rec: 03/22/19 13:09 MB [id number]) Physical Therapy Assessment Goals 5 Care Home Goal (LTG) Pt will perform progressive HEP with I by 05/03/19. LTG Duration 8 weeks 4 Care Home Goal (LTG) Pt will present with an improved LE functional index score reflecting no more than 40% impairment by 05/03/19. LTG Duration 8 weeks 3 Nurses' Registry Director Goal (LTG) Pt will report a 75% improvement in LB and left groin pain by 05/03/19. LTG Duration 8 weeks 2 Impairment Weakness Care Home Goal (LTG) Pt will present with B hip abduction and flexion to 5/5 by 05/03/19. LTG Duration 8 weeks 1 Impairment Decreased balance Nurses' Registry Director Goal (LTG) Pt will be able to perform B Tandem for 30 sec by 05/03/19. LTG Duration 8 weeks Assessment Summary Assessment Pt con't with left lateral hip pain. He does point to trochanteric area and pain cannot be reproduced with palpation. Standing ER and IR unweighted does bother him and he has most pain with standing. He is following up with orthopedist and PT agrees with this and hopes that pt will have further work-up of the joint. Physical Therapy Plan Frequency and Duration Frequency of Treatment 2x/Week Duration of Treatment 8 weeks Plan of Care Start Date 03/03/19 Plan of Care End Date 05/03/19 Other Referrals/Consults Referrals/Consults Recommended PT recommends that pt follow- up with orthopedist to consider further work-up for left hip in setting of possible OA changes contributing to pain Next Visit Focus/Plan Next Note Type Treatment Note Next Visit Plan Consider progressing balance exercises, multifidi and heel raises. Consider Counterstrain .
--- NOTE | 2019-03-25 15:30 | PT.OTN ---
Current Diagnoses Unilateral primary osteoarthritis, left hip (03/25/19) Strain of muscle, fascia and tendon of left hip, initial encounter (03/25/19) Physical Therapy Treatment Note PT-OP-A Visit Information Start: 03/03/19 14:55 Freq: Status: Active Protocol: Document 03/25/19 14:37 MB (Rec: 03/25/19 15:30 MB [id number]) Out-Patient Physical Therapy Visit Information Visit Information Visit Type Treatment Note Visit Start Time 14:37 Visit Stop Time 15:22 Total Visit Minutes 45 Visit Number 12/07 Number of PARKING MANAGER Visits 0 PT-OP-B Current Condition Start: 03/03/19 14:55 Freq: Status: Active Protocol: Document 03/03/19 12:48 MB (Rec: 03/03/19 15:04 MB [id number]) Current Condition History of Current Condition Onset Date 5 months Current Complaints LBP and left groin discomfort History of Current Condition Pt reports 5 months of left groin discomfort that started when he was using the elliptical at the gym. Left hip x-ray 01/10/19 revealed mod B hip degenerative changes. Pt reports getting in and out of a blake, getting in and out of the car and standing increase the pain. He describes left hip adduction/ abduction, ER increasing pain. Pt states that wearing a belt increased pain across his low back and left groin and that suspenders help. He reports hx R TKR 2015 and received PT, back sxs in and history of left foot drop, great toe extensor tone, calf cramps, history of crush injury right foot. He denies paresthesias in his legs. His pain increases during the day. It does wake him up hourly. Prior Treatments and Tests PT, good response Right knee and back sxs Treatment Goals Patient/Caregiver Goals To decrease pain and be able to get back on his sail boat Personal Factors Other Personal Factors That May Effect History of multi-joint changes Therapy/Recovery and pain, back, right knee surgeries PT-OP-C Subjective Start: 03/03/19 14:55 Freq: Status: Active Protocol: Document 03/25/19 14:37 MB (Rec: 03/25/19 15:30 MB [id number]) OP-PT Subjective Patient Comments Patient Comments Pt reports stiffness with sitting 10 minutes or more. PT-OP-D Balance Start: 03/03/19 14:55 Freq: Status: Active Protocol: Document 03/03/19 12:48 MB (Rec: 03/03/19 18:26 MB [id number]) Balance Tests Other Other Balance Tests Performed Pt states that he has to wear shoes d/t old crush injury of right foot. Romberg and Romberg with eyes closed 30 sec. R SLS 7 sec and pt cannot get into left SLS position. PT-OP-J Posture/Palpation/Skin Start: 03/03/19 14:55 Freq: Status: Active Protocol: Document 03/03/19 12:48 MB (Rec: 03/03/19 18:26 MB [id number]) Posture Evaluation Comments Posture Comments Standing: most notable comment is that his trunk translates to the left (SB and rotational ) and his right shoulder and right iliac crest are higher than the left. Also, tragus 2 in front of AC joint, anterior tilt pelvis. PT-OP-M Strength Start: 03/03/19 14:55 Freq: Status: Active Protocol: Document 03/03/19 12:48 MB (Rec: 03/03/19 18:26 MB [id number]) Hip Strength Hip Manual Muscle Testing Left Flexion (L2) 2- Poor- Abduction 3- Fair- Comments Supine Right Flexion (L2) 5 Normal Extension (S1) 4 Good Comments Supine Knee Strength Knee Manual Muscle Testing Left Flexion (S2) 5 Normal Extension (L3) 5 Normal Comments Supine Right Flexion (S2) 5 Normal Extension (L3) 5 Normal Comments Supine Ankle/Foot Strength Ankle and Foot Manual Muscle Testing Left Dorsiflexion (L4) 4 Good Plantarflexion (S1) 4 Good Inversion 4 Good Eversion (S1) 4 Good Comments Great toe 2-/5, tone in extensors Right Dorsiflexion (L4) 5 Normal Plantarflexion (S1) 5 Normal Inversion 5 Normal Eversion (S1) 5 Normal Comments Great toe extension 4/5 PT-OP-Q Treatments Start: 03/03/19 14:55 Freq: Status: Active Protocol: Document 03/25/19 14:37 MB (Rec: 03/25/19 15:30 MB [id number]) Therapeutic Exercises Supine Exercises Diaphragmatic breathing Comments Supine, perform when awaken at night Open book exercises Comments B side lying, open book Trino stretch Comments B LEs, 30 sec, focus on gentle knee bends this date Sitting Exercises Ankle DF and eversion with teal band Comments Ankle DF and eversion with teal band Rolling pin massage Comments Rolling pin massage quads Standing Exercises Crab walking with light blue band, level 1 Comments Crab walking with light blue band, level 1 Hip abduction and extension with band Comments Hip extension and abduction with band--teal Manual Therapy Treatment Manual Techniques STM rolling pin quads Comments Left PT-OP-T Assessment and Plan Start: 03/03/19 14:55 Freq: Status: Active Protocol: Document 03/25/19 14:37 MB (Rec: 03/25/19 15:30 MB [id number]) Physical Therapy Assessment Goals 5 Vision Specialist Goal (LTG) Pt will perform progressive HEP with I by 05/03/19. LTG Duration 8 weeks 4 Mcfp Goal (LTG) Pt will present with an improved LE functional index score reflecting no more than 40% impairment by 05/03/19. LTG Duration 8 weeks 3 Mcfp Goal (LTG) Pt will report a 75% improvement in LB and left groin pain by 05/03/19. LTG Duration 8 weeks 2 Impairment Weakness Vision Specialist Goal (LTG) Pt will present with B hip abduction and flexion to 5/5 by 05/03/19. LTG Duration 8 weeks 1 Impairment Decreased balance Mcfp Goal (LTG) Pt will be able to perform B Tandem for 30 sec by 05/03/19. LTG Duration 8 weeks Assessment Summary Assessment PT observes postural changes in pt's thoracic spine this date--kyphoscoliosis. Ed in side lying open book this date . Physical Therapy Plan Frequency and Duration Frequency of Treatment 2x/Week Duration of Treatment 8 weeks Plan of Care Start Date 03/03/19 Plan of Care End Date 05/03/19 Other Referrals/Consults Referrals/Consults Recommended PT recommends that pt follow- up with orthopedist to consider further work-up for left hip in setting of possible OA changes contributing to pain Next Visit Focus/Plan Next Note Type Treatment Note Next Visit Plan Consider progressing balance exercises, multifidi and heel raises. Consider Counterstrain .
--- NOTE | 2019-03-29 12:03 | PT.OTN ---
Current Diagnoses Unilateral primary osteoarthritis, left hip (03/29/19) Strain of muscle, fascia and tendon of left hip, initial encounter (03/29/19) Physical Therapy Treatment Note PT-OP-A Visit Information Start: 03/03/19 14:55 Freq: Status: Active Protocol: Document 03/29/19 11:17 MB (Rec: 03/29/19 12:01 MB [id number]) Out-Patient Physical Therapy Visit Information Visit Information Visit Type Treatment Note Visit Start Time : Visit Stop Time 12:00 Total Visit Minutes 43 Visit Number 01/07 Number of WIDE LOAD ESCORT Visits 0 PT-OP-B Current Condition Start: 03/03/19 14:55 Freq: Status: Active Protocol: Document 03/03/19 12:48 MB (Rec: 03/03/19 15:04 MB [id number]) Current Condition History of Current Condition Onset Date 5 months Current Complaints LBP and left groin discomfort History of Current Condition Pt reports 5 months of left groin discomfort that started when he was using the elliptical at the gym. Left hip x-ray 01/10/19 revealed mod B hip degenerative changes. Pt reports getting in and out of a blake, getting in and out of the car and standing increase the pain. He describes left hip adduction/ abduction, ER increasing pain. Pt states that wearing a belt increased pain across his low back and left groin and that suspenders help. He reports hx R TKR 2015 and received PT, back sxs in and history of left foot drop, great toe extensor tone, calf cramps, history of crush injury right foot. He denies paresthesias in his legs. His pain increases during the day. It does wake him up hourly. Prior Treatments and Tests PT, good response Right knee and back sxs Treatment Goals Patient/Caregiver Goals To decrease pain and be able to get back on his sail boat Personal Factors Other Personal Factors That May Effect History of multi-joint changes Therapy/Recovery and pain, back, right knee surgeries PT-OP-C Subjective Start: 03/03/19 14:55 Freq: Status: Active Protocol: Document 03/29/19 11:17 MB (Rec: 03/29/19 12:01 MB [id number]) OP-PT Subjective Patient Comments Patient Comments Pt states that he needs to cut out weekends. He states that sitting too long for social events and even sitting in the waiting area increases the pain in his left hip. He sees orthopedist tomorrow about his left hip. He has another PT appointment on Friday and will follow-up with PT about plan at that time. He feels that PT has helped the flexibility part. His left groin muscle feels better. PT-OP-D Balance Start: 03/03/19 14:55 Freq: Status: Active Protocol: Document 03/03/19 12:48 MB (Rec: 03/03/19 18:26 MB [id number]) Balance Tests Other Other Balance Tests Performed Pt states that he has to wear shoes d/t old crush injury of right foot. Romberg and Romberg with eyes closed 30 sec. R SLS 7 sec and pt cannot get into left SLS position. PT-OP-J Posture/Palpation/Skin Start: 03/03/19 14:55 Freq: Status: Active Protocol: Document 03/03/19 12:48 MB (Rec: 03/03/19 18:26 MB [id number]) Posture Evaluation Comments Posture Comments Standing: most notable comment is that his trunk translates to the left (SB and rotational ) and his right shoulder and right iliac crest are higher than the left. Also, tragus 2 in front of AC joint, anterior tilt pelvis. PT-OP-M Strength Start: 03/03/19 14:55 Freq: Status: Active Protocol: Document 03/03/19 12:48 MB (Rec: 03/03/19 18:26 MB [id number]) Hip Strength Hip Manual Muscle Testing Left Flexion (L2) 2- Poor- Abduction 3- Fair- Comments Supine Right Flexion (L2) 5 Normal Extension (S1) 4 Good Comments Supine Knee Strength Knee Manual Muscle Testing Left Flexion (S2) 5 Normal Extension (L3) 5 Normal Comments Supine Right Flexion (S2) 5 Normal Extension (L3) 5 Normal Comments Supine Ankle/Foot Strength Ankle and Foot Manual Muscle Testing Left Dorsiflexion (L4) 4 Good Plantarflexion (S1) 4 Good Inversion 4 Good Eversion (S1) 4 Good Comments Great toe 2-/5, tone in extensors Right Dorsiflexion (L4) 5 Normal Plantarflexion (S1) 5 Normal Inversion 5 Normal Eversion (S1) 5 Normal Comments Great toe extension 4/5 PT-OP-Q Treatments Start: 03/03/19 14:55 Freq: Status: Active Protocol: Document 03/29/19 11:17 MB (Rec: 03/29/19 12:01 MB [id number]) Manual Therapy Treatment Manual Techniques Counterstrain Comments Pt agrees to Counterstrain to assess and treat fascial tension: left visceral, left arterial, right neural, occipital, right ALL, left standard row lymphatics and spinal flexion LV--treated stacks lymphatic venous thoracic and also visceral. PT-OP-T Assessment and Plan Start: 03/03/19 14:55 Freq: Status: Active Protocol: Document 03/29/19 11:17 MB (Rec: 03/29/19 12:01 MB [id number]) Physical Therapy Assessment Goals 5 Escrow Closer Goal (LTG) Pt will perform progressive HEP with I by 05/03/19. LTG Duration 8 weeks 4 Escrow Closer Goal (LTG) Pt will present with an improved LE functional index score reflecting no more than 40% impairment by 05/03/19. LTG Duration 8 weeks 3 Shelter Goal (LTG) Pt will report a 75% improvement in LB and left groin pain by 05/03/19. LTG Duration 8 weeks 2 Impairment Weakness Shelter Goal (LTG) Pt will present with B hip abduction and flexion to 5/5 by 05/03/19. LTG Duration 8 weeks 1 Impairment Decreased balance Escrow Closer Goal (LTG) Pt will be able to perform B Tandem for 30 sec by 05/03/19. LTG Duration 8 weeks Assessment Summary Assessment Counterstrain this date to address fascial tension. Physical Therapy Plan Frequency and Duration Frequency of Treatment 2x/Week Duration of Treatment 8 weeks Plan of Care Start Date 03/03/19 Plan of Care End Date 05/03/19 Other Referrals/Consults Referrals/Consults Recommended PT recommends that pt follow- up with orthopedist to consider further work-up for left hip in setting of possible OA changes contributing to pain Next Visit Focus/Plan Next Note Type Treatment Note Next Visit Plan Anticipate orthopedist recommendations tomorrow and then determine plan.
--- NOTE | 2019-03-31 11:59 | PT.OTN ---
Current Diagnoses Unilateral primary osteoarthritis, left hip (03/31/19) Strain of muscle, fascia and tendon of left hip, initial encounter (03/31/19) Physical Therapy Treatment Note PT-OP-A Visit Information Start: 03/03/19 14:55 Freq: Status: Active Protocol: Document 03/31/19 11:20 MB (Rec: 03/31/19 11:58 MB [id number]) Out-Patient Physical Therapy Visit Information Visit Information Visit Type Treatment Note Visit Start Time 11:20 Visit Stop Time 11:58 Total Visit Minutes 38 Visit Number 02/07 Number of BRANCH MECHANIC Visits 0 PT-OP-B Current Condition Start: 03/03/19 14:55 Freq: Status: Active Protocol: Document 03/03/19 12:48 MB (Rec: 03/03/19 15:04 MB [id number]) Current Condition History of Current Condition Onset Date 5 months Current Complaints LBP and left groin discomfort History of Current Condition Pt reports 5 months of left groin discomfort that started when he was using the elliptical at the gym. Left hip x-ray 01/10/19 revealed mod B hip degenerative changes. Pt reports getting in and out of a blake, getting in and out of the car and standing increase the pain. He describes left hip adduction/ abduction, ER increasing pain. Pt states that wearing a belt increased pain across his low back and left groin and that suspenders help. He reports hx R TKR 2015 and received PT, back sxs in and history of left foot drop, great toe extensor tone, calf cramps, history of crush injury right foot. He denies paresthesias in his legs. His pain increases during the day. It does wake him up hourly. Prior Treatments and Tests PT, good response Right knee and back sxs Treatment Goals Patient/Caregiver Goals To decrease pain and be able to get back on his sail boat Personal Factors Other Personal Factors That May Effect History of multi-joint changes Therapy/Recovery and pain, back, right knee surgeries PT-OP-C Subjective Start: 03/03/19 14:55 Freq: Status: Active Protocol: Document 03/31/19 11:20 MB (Rec: 03/31/19 11:58 MB [id number]) OP-PT Subjective Patient Comments Patient Comments Pt states that Counterstrain really helped his left back. Pt states that he returned to see Dr. Cannon. He states that the surgeon states that pt can hopefully get back to where he was before with PT focusing on strengthening. Pt states that the the surgeon mention arthritis as well as bursitis. Surgeon does not feel that arthritis is bad enough for MRI or sx. PT-OP-D Balance Start: 03/03/19 14:55 Freq: Status: Active Protocol: Document 03/03/19 12:48 MB (Rec: 03/03/19 18:26 MB [id number]) Balance Tests Other Other Balance Tests Performed Pt states that he has to wear shoes d/t old crush injury of right foot. Romberg and Romberg with eyes closed 30 sec. R SLS 7 sec and pt cannot get into left SLS position. PT-OP-J Posture/Palpation/Skin Start: 03/03/19 14:55 Freq: Status: Active Protocol: Document 03/03/19 12:48 MB (Rec: 03/03/19 18:26 MB [id number]) Posture Evaluation Comments Posture Comments Standing: most notable comment is that his trunk translates to the left (SB and rotational ) and his right shoulder and right iliac crest are higher than the left. Also, tragus 2 in front of AC joint, anterior tilt pelvis. PT-OP-M Strength Start: 03/03/19 14:55 Freq: Status: Active Protocol: Document 03/03/19 12:48 MB (Rec: 03/03/19 18:26 MB [id number]) Hip Strength Hip Manual Muscle Testing Left Flexion (L2) 2- Poor- Abduction 3- Fair- Comments Supine Right Flexion (L2) 5 Normal Extension (S1) 4 Good Comments Supine Knee Strength Knee Manual Muscle Testing Left Flexion (S2) 5 Normal Extension (L3) 5 Normal Comments Supine Right Flexion (S2) 5 Normal Extension (L3) 5 Normal Comments Supine Ankle/Foot Strength Ankle and Foot Manual Muscle Testing Left Dorsiflexion (L4) 4 Good Plantarflexion (S1) 4 Good Inversion 4 Good Eversion (S1) 4 Good Comments Great toe 2-/5, tone in extensors Right Dorsiflexion (L4) 5 Normal Plantarflexion (S1) 5 Normal Inversion 5 Normal Eversion (S1) 5 Normal Comments Great toe extension 4/5 PT-OP-Q Treatments Start: 03/03/19 14:55 Freq: Status: Active Protocol: Document 03/31/19 11:20 MB (Rec: 03/31/19 11:58 MB [id number]) Cardio Equipment Bicycle (Upright) Duration (Minutes) 10 Resistance 7 Therapeutic Exercises Standing Exercises Crab walking with light blue band, level 1 Comments Crab walking with level 2 band Hip abduction and extension with band Comments Hip extension and abduction with band--teal PT-OP-T Assessment and Plan Start: 03/03/19 14:55 Freq: Status: Active Protocol: Document 03/31/19 11:20 MB (Rec: 03/31/19 11:58 MB [id number]) Physical Therapy Assessment Goals 5 Roof Fixer Goal (LTG) Pt will perform progressive HEP with I by 05/03/19. LTG Duration 8 weeks 4 Roof Fixer Goal (LTG) Pt will present with an improved LE functional index score reflecting no more than 40% impairment by 05/03/19. LTG Duration 8 weeks 3 Mcc Goal (LTG) Pt will report a 75% improvement in LB and left groin pain by 05/03/19. LTG Duration 8 weeks 2 Impairment Weakness Roof Fixer Goal (LTG) Pt will present with B hip abduction and flexion to 5/5 by 05/03/19. LTG Duration 8 weeks 1 Impairment Decreased balance Mcc Goal (LTG) Pt will be able to perform B Tandem for 30 sec by 05/03/19. LTG Duration 8 weeks Assessment Summary Assessment Focused on strengthening this date. Con't to progress strengthening including multifidi strengthening with band, heel raises. Consider weight lifting machines to train, leg press. Pt has soreness after crab walking. He reports he will return to see Dr. Cannon in 4 weeks. Physical Therapy Plan Frequency and Duration Frequency of Treatment 2x/Week Duration of Treatment 8 weeks Plan of Care Start Date 03/03/19 Plan of Care End Date 05/03/19 Other Referrals/Consults Referrals/Consults Recommended PT recommends that pt follow- up with orthopedist to consider further work-up for left hip in setting of possible OA changes contributing to pain. He might benefits from further diagnostics of left hip. Next Visit Focus/Plan Next Note Type Treatment Note Next Visit Plan Ongoing strengthening as pt tolerates, mini wall squat and multifidi.
--- NOTE | 2019-04-05 13:01 | PT.OTN ---
Current Diagnoses Unilateral primary osteoarthritis, left hip (04/05/19) Strain of muscle, fascia and tendon of left hip, initial encounter (04/05/19) Physical Therapy Treatment Note PT-OP-A Visit Information Start: 03/03/19 14:55 Freq: Status: Active Protocol: Document 04/05/19 12:20 MB (Rec: 04/05/19 13:00 MB [id number]) Out-Patient Physical Therapy Visit Information Visit Information Visit Type Treatment Note Visit Start Time 12:20 Visit Stop Time 13:00 Total Visit Minutes 38 Visit Number 03/09 Number of OPERATING SYSTEMS SPECIALIST Visits 0 PT-OP-B Current Condition Start: 03/03/19 14:55 Freq: Status: Active Protocol: Document 03/03/19 12:48 MB (Rec: 03/03/19 15:04 MB [id number]) Current Condition History of Current Condition Onset Date 5 months Current Complaints LBP and left groin discomfort History of Current Condition Pt reports 5 months of left groin discomfort that started when he was using the elliptical at the gym. Left hip x-ray 01/10/19 revealed mod B hip degenerative changes. Pt reports getting in and out of a blake, getting in and out of the car and standing increase the pain. He describes left hip adduction/ abduction, ER increasing pain. Pt states that wearing a belt increased pain across his low back and left groin and that suspenders help. He reports hx R TKR 2015 and received PT, back sxs in and history of left foot drop, great toe extensor tone, calf cramps, history of crush injury right foot. He denies paresthesias in his legs. His pain increases during the day. It does wake him up hourly. Prior Treatments and Tests PT, good response Right knee and back sxs Treatment Goals Patient/Caregiver Goals To decrease pain and be able to get back on his sail boat Personal Factors Other Personal Factors That May Effect History of multi-joint changes Therapy/Recovery and pain, back, right knee surgeries PT-OP-C Subjective Start: 03/03/19 14:55 Freq: Status: Active Protocol: Document 04/05/19 12:20 MB (Rec: 04/05/19 13:00 MB [id number]) OP-PT Subjective Patient Comments Patient Comments Pt states that he felt good after PT treatment that day, that night. The next day was good and then the evening was bad. The following day was good and the evening was bad. He has pain when sleeping. He had a kidney stone on Friday night. He went to the gym and used the upright bike. He tried some LE strengthening machines and they were awkward in set up/position. Patient Questionnaires Lower Extremity Functional Scale LEFS Impairment 60 to 79% Impaired (Score 17- 31) PT-OP-D Balance Start: 03/03/19 14:55 Freq: Status: Active Protocol: Document 03/03/19 12:48 MB (Rec: 03/03/19 18:26 MB [id number]) Balance Tests Other Other Balance Tests Performed Pt states that he has to wear shoes d/t old crush injury of right foot. Romberg and Romberg with eyes closed 30 sec. R SLS 7 sec and pt cannot get into left SLS position. PT-OP-J Posture/Palpation/Skin Start: 03/03/19 14:55 Freq: Status: Active Protocol: Document 03/03/19 12:48 MB (Rec: 03/03/19 18:26 MB [id number]) Posture Evaluation Comments Posture Comments Standing: most notable comment is that his trunk translates to the left (SB and rotational ) and his right shoulder and right iliac crest are higher than the left. Also, tragus 2 in front of AC joint, anterior tilt pelvis. PT-OP-M Strength Start: 03/03/19 14:55 Freq: Status: Active Protocol: Document 03/03/19 12:48 MB (Rec: 03/03/19 18:26 MB [id number]) Hip Strength Hip Manual Muscle Testing Left Flexion (L2) 2- Poor- Abduction 3- Fair- Comments Supine Right Flexion (L2) 5 Normal Extension (S1) 4 Good Comments Supine Knee Strength Knee Manual Muscle Testing Left Flexion (S2) 5 Normal Extension (L3) 5 Normal Comments Supine Right Flexion (S2) 5 Normal Extension (L3) 5 Normal Comments Supine Ankle/Foot Strength Ankle and Foot Manual Muscle Testing Left Dorsiflexion (L4) 4 Good Plantarflexion (S1) 4 Good Inversion 4 Good Eversion (S1) 4 Good Comments Great toe 2-/5, tone in extensors Right Dorsiflexion (L4) 5 Normal Plantarflexion (S1) 5 Normal Inversion 5 Normal Eversion (S1) 5 Normal Comments Great toe extension 4/5 PT-OP-Q Treatments Start: 03/03/19 14:55 Freq: Status: Active Protocol: Document 04/05/19 12:20 MB (Rec: 04/05/19 13:00 MB [id number]) Cardio Equipment Elliptical Duration (Minutes) 1 Resistance 0 Bicycle (Upright) Duration (Minutes) 15 Resistance 7-8 Therapeutic Exercises Standing Exercises Multifidi push out and heel raises Comments Level 1 band PT-OP-T Assessment and Plan Start: 03/03/19 14:55 Freq: Status: Active Protocol: Document 04/05/19 12:20 MB (Rec: 04/05/19 13:00 MB [id number]) Physical Therapy Assessment Goals 5 Intermediate Goal (LTG) Pt will perform progressive HEP with I by 05/03/19. 04/05/19: pt is performing progressive flexibility, strengthening and balance exercises LTG Duration 8 weeks 4 Molding Utility Worker Goal (LTG) Pt will present with an improved LE functional index score reflecting no more than 40% impairment by 05/03/19. 04/05/19: LEF reflects 61.25% impairment 04/05/19: LTG Duration 8 weeks 3 Molding Utility Worker Goal (LTG) Pt will report a 75% improvement in LB and left groin pain by 05/03/19. 04/05/19: pt reports muscle pain is much better and he con 't with lateral hip pain. He reports overall 50% improvement in pain since starting PT LTG Duration 8 weeks 2 Impairment Weakness Intermediate Goal (LTG) Pt will present with B hip abduction and flexion to 5/5 by 05/03/19. LTG Duration 8 weeks 1 Impairment Decreased balance Molding Utility Worker Goal (LTG) Pt will be able to perform B Tandem for 30 sec by 05/03/19. LTG Duration 8 weeks Assessment Summary Assessment Pt has progressed towards all PT goals. Will con't PT for 5x /wk, per original POC. Initiated multifidi balance, heel raises this date. Consider adding mini squat and Counterstrain next treatment date. Physical Therapy Plan Frequency and Duration Frequency of Treatment 2x/Week Duration of Treatment 8 weeks Plan of Care Start Date 03/03/19 Plan of Care End Date 05/03/19 Other Referrals/Consults Referrals/Consults Recommended PT recommends that pt follow- up with orthopedist to consider further work-up for left hip in setting of possible OA changes contributing to pain. He might benefits from further diagnostics of left hip. Next Visit Focus/Plan Next Note Type Treatment Note Next Visit Plan Ongoing strengthening as pt tolerates, mini wall squat. Consider Counterstrain next treatment date.
--- NOTE | 2019-04-07 13:02 | PT.OTN ---
Current Diagnoses Unilateral primary osteoarthritis, left hip (04/07/19) Strain of muscle, fascia and tendon of left hip, initial encounter (04/07/19) Physical Therapy Treatment Note PT-OP-A Visit Information Start: 03/03/19 14:55 Freq: Status: Active Protocol: Document 04/07/19 12:13 MB (Rec: 04/07/19 13:00 MB [id number]) Out-Patient Physical Therapy Visit Information Visit Information Visit Type Treatment Note Visit Start Time 12:13 Visit Stop Time 12:58 Total Visit Minutes 45 Visit Number 04/09 Number of REFRIGERATION PLANT OPERATOR Visits 0 PT-OP-B Current Condition Start: 03/03/19 14:55 Freq: Status: Active Protocol: Document 03/03/19 12:48 MB (Rec: 03/03/19 15:04 MB [id number]) Current Condition History of Current Condition Onset Date 5 months Current Complaints LBP and left groin discomfort History of Current Condition Pt reports 5 months of left groin discomfort that started when he was using the elliptical at the gym. Left hip x-ray 01/10/19 revealed mod B hip degenerative changes. Pt reports getting in and out of a blake, getting in and out of the car and standing increase the pain. He describes left hip adduction/ abduction, ER increasing pain. Pt states that wearing a belt increased pain across his low back and left groin and that suspenders help. He reports hx R TKR 2015 and received PT, back sxs in and history of left foot drop, great toe extensor tone, calf cramps, history of crush injury right foot. He denies paresthesias in his legs. His pain increases during the day. It does wake him up hourly. Prior Treatments and Tests PT, good response Right knee and back sxs Treatment Goals Patient/Caregiver Goals To decrease pain and be able to get back on his sail boat Personal Factors Other Personal Factors That May Effect History of multi-joint changes Therapy/Recovery and pain, back, right knee surgeries PT-OP-C Subjective Start: 03/03/19 14:55 Freq: Status: Active Protocol: Document 04/07/19 12:13 MB (Rec: 04/07/19 13:02 MB [id number]) OP-PT Subjective Patient Comments Patient Comments Pt reports he was feeling good until he got out of the car. PT-OP-D Balance Start: 03/03/19 14:55 Freq: Status: Active Protocol: Document 03/03/19 12:48 MB (Rec: 03/03/19 18:26 MB [id number]) Balance Tests Other Other Balance Tests Performed Pt states that he has to wear shoes d/t old crush injury of right foot. Romberg and Romberg with eyes closed 30 sec. R SLS 7 sec and pt cannot get into left SLS position. PT-OP-J Posture/Palpation/Skin Start: 03/03/19 14:55 Freq: Status: Active Protocol: Document 03/03/19 12:48 MB (Rec: 03/03/19 18:26 MB [id number]) Posture Evaluation Comments Posture Comments Standing: most notable comment is that his trunk translates to the left (SB and rotational ) and his right shoulder and right iliac crest are higher than the left. Also, tragus 2 in front of AC joint, anterior tilt pelvis. PT-OP-M Strength Start: 03/03/19 14:55 Freq: Status: Active Protocol: Document 03/03/19 12:48 MB (Rec: 03/03/19 18:26 MB [id number]) Hip Strength Hip Manual Muscle Testing Left Flexion (L2) 2- Poor- Abduction 3- Fair- Comments Supine Right Flexion (L2) 5 Normal Extension (S1) 4 Good Comments Supine Knee Strength Knee Manual Muscle Testing Left Flexion (S2) 5 Normal Extension (L3) 5 Normal Comments Supine Right Flexion (S2) 5 Normal Extension (L3) 5 Normal Comments Supine Ankle/Foot Strength Ankle and Foot Manual Muscle Testing Left Dorsiflexion (L4) 4 Good Plantarflexion (S1) 4 Good Inversion 4 Good Eversion (S1) 4 Good Comments Great toe 2-/5, tone in extensors Right Dorsiflexion (L4) 5 Normal Plantarflexion (S1) 5 Normal Inversion 5 Normal Eversion (S1) 5 Normal Comments Great toe extension 4/5 PT-OP-Q Treatments Start: 03/03/19 14:55 Freq: Status: Active Protocol: Document 04/07/19 12:13 MB (Rec: 04/07/19 13:00 MB [id number]) Manual Therapy Treatment Other Other Manual Treatments Pt agrees to Counterstrain to assess and treat fascial restrictions of the following systems and PT treats stacks: dura CARTWRIGHT left, Facial Nerve right, right sinuvertebral, left somatic pelvic area, AINT on on the left T8-9, right preganglionic sympathic. Pt denies uncontrolled DM, eye pressure or other eye problems. PT-OP-T Assessment and Plan Start: 03/03/19 14:55 Freq: Status: Active Protocol: Document 04/07/19 12:13 MB (Rec: 04/07/19 13:00 MB [id number]) Physical Therapy Assessment Goals 5 Postage Machine Operator Goal (LTG) Pt will perform progressive HEP with I by 05/03/19. 04/05/19: pt is performing progressive flexibility, strengthening and balance exercises LTG Duration 8 weeks 4 [facility] Goal (LTG) Pt will present with an improved LE functional index score reflecting no more than 40% impairment by 05/03/19. 04/05/19: LEF reflects 61.25% impairment 04/05/19: LTG Duration 8 weeks 3 Postage Machine Operator Goal (LTG) Pt will report a 75% improvement in LB and left groin pain by 05/03/19. 04/05/19: pt reports muscle pain is much better and he con 't with lateral hip pain. He reports overall 50% improvement in pain since starting PT LTG Duration 8 weeks 2 Impairment Weakness Postage Machine Operator Goal (LTG) Pt will present with B hip abduction and flexion to 5/5 by 05/03/19. LTG Duration 8 weeks 1 Impairment Decreased balance Postage Machine Operator Goal (LTG) Pt will be able to perform B Tandem for 30 sec by 05/03/19. LTG Duration 8 weeks Assessment Summary Assessment Initiated Counterstrain this date. Pt has a lot of issues with left foot--great toe does not PF after injury to foot, he has muscle spasms in plantar foot. He has callouses on his right foot and wears a callous wedge after foot injury. PT feels that pt's feet are a component to his pain higher in the chain (hip and back). Pt states that he was doing varying elevation elliptical work and ed to try straight. Physical Therapy Plan Frequency and Duration Frequency of Treatment 2x/Week Duration of Treatment 8 weeks Plan of Care Start Date 03/03/19 Plan of Care End Date 05/03/19 Other Referrals/Consults Referrals/Consults Recommended PT recommends that pt follow- up with orthopedist to consider further work-up for left hip in setting of possible OA changes contributing to pain. He might benefits from further diagnostics of left hip. Next Visit Focus/Plan Next Note Type Treatment Note Next Visit Plan Ongoing strengthening as pt tolerates, mini wall squat. Consider Counterstrain next treatment date.
--- NOTE | 2019-04-12 13:04 | PT.OTN ---
Current Diagnoses Unilateral primary osteoarthritis, left hip (04/12/19) Strain of muscle, fascia and tendon of left hip, initial encounter (04/12/19) Physical Therapy Treatment Note PT-OP-A Visit Information Start: 03/03/19 14:55 Freq: Status: Active Protocol: Document 04/12/19 12:21 MB (Rec: 04/12/19 12:28 MB [id number]) Out-Patient Physical Therapy Visit Information Visit Information Visit Type Treatment Note Visit Start Time 12:21 Visit Stop Time 13:00 Total Visit Minutes 39 Visit Number 05/09 Number of HOISTER Visits 0 PT-OP-B Current Condition Start: 03/03/19 14:55 Freq: Status: Active Protocol: Document 03/03/19 12:48 MB (Rec: 03/03/19 15:04 MB [id number]) Current Condition History of Current Condition Onset Date 5 months Current Complaints LBP and left groin discomfort History of Current Condition Pt reports 5 months of left groin discomfort that started when he was using the elliptical at the gym. Left hip x-ray 01/10/19 revealed mod B hip degenerative changes. Pt reports getting in and out of a blake, getting in and out of the car and standing increase the pain. He describes left hip adduction/ abduction, ER increasing pain. Pt states that wearing a belt increased pain across his low back and left groin and that suspenders help. He reports hx R TKR 2015 and received PT, back sxs in and history of left foot drop, great toe extensor tone, calf cramps, history of crush injury right foot. He denies paresthesias in his legs. His pain increases during the day. It does wake him up hourly. Prior Treatments and Tests PT, good response Right knee and back sxs Treatment Goals Patient/Caregiver Goals To decrease pain and be able to get back on his sail boat Personal Factors Other Personal Factors That May Effect History of multi-joint changes Therapy/Recovery and pain, back, right knee surgeries PT-OP-C Subjective Start: 03/03/19 14:55 Freq: Status: Active Protocol: Document 04/12/19 12:21 MB (Rec: 04/12/19 12:27 MB [id number]) OP-PT Subjective Patient Comments Patient Comments Pt states that he did 20 minutes on the elliptical and then 15 minutes on the bike. He used a level 3 band on his multifidi exercise by accident . He had bad back pain yesterday morning and he is limping today. PT-OP-D Balance Start: 03/03/19 14:55 Freq: Status: Active Protocol: Document 03/03/19 12:48 MB (Rec: 03/03/19 18:26 MB [id number]) Balance Tests Other Other Balance Tests Performed Pt states that he has to wear shoes d/t old crush injury of right foot. Romberg and Romberg with eyes closed 30 sec. R SLS 7 sec and pt cannot get into left SLS position. PT-OP-J Posture/Palpation/Skin Start: 03/03/19 14:55 Freq: Status: Active Protocol: Document 03/03/19 12:48 MB (Rec: 03/03/19 18:26 MB [id number]) Posture Evaluation Comments Posture Comments Standing: most notable comment is that his trunk translates to the left (SB and rotational ) and his right shoulder and right iliac crest are higher than the left. Also, tragus 2 in front of AC joint, anterior tilt pelvis. PT-OP-M Strength Start: 03/03/19 14:55 Freq: Status: Active Protocol: Document 03/03/19 12:48 MB (Rec: 03/03/19 18:26 MB [id number]) Hip Strength Hip Manual Muscle Testing Left Flexion (L2) 2- Poor- Abduction 3- Fair- Comments Supine Right Flexion (L2) 5 Normal Extension (S1) 4 Good Comments Supine Knee Strength Knee Manual Muscle Testing Left Flexion (S2) 5 Normal Extension (L3) 5 Normal Comments Supine Right Flexion (S2) 5 Normal Extension (L3) 5 Normal Comments Supine Ankle/Foot Strength Ankle and Foot Manual Muscle Testing Left Dorsiflexion (L4) 4 Good Plantarflexion (S1) 4 Good Inversion 4 Good Eversion (S1) 4 Good Comments Great toe 2-/5, tone in extensors Right Dorsiflexion (L4) 5 Normal Plantarflexion (S1) 5 Normal Inversion 5 Normal Eversion (S1) 5 Normal Comments Great toe extension 4/5 PT-OP-Q Treatments Start: 03/03/19 14:55 Freq: Status: Active Protocol: Document 04/12/19 12:21 MB (Rec: 04/12/19 12:31 MB [id number]) Manual Therapy Treatment Other Other Manual Treatments Counterstrain to assess and treat fascial tension and pt is agreeable. PT assessed and treated stacks: right epdiural LV, right LE posterior somatics. Pt con't with thoracic tightness and iliac crest tightness. PT-OP-T Assessment and Plan Start: 03/03/19 14:55 Freq: Status: Active Protocol: Document 04/12/19 12:21 MB (Rec: 04/12/19 12:27 MB [id number]) Physical Therapy Assessment Goals 5 Back Feeder Plywood Layup Line Goal (LTG) Pt will perform progressive HEP with I by 05/03/19. 04/05/19: pt is performing progressive flexibility, strengthening and balance exercises LTG Duration 8 weeks 4 Back Feeder Plywood Layup Line Goal (LTG) Pt will present with an improved LE functional index score reflecting no more than 40% impairment by 05/03/19. 04/05/19: LEF reflects 61.25% impairment 04/05/19: LTG Duration 8 weeks 3 [facility] Goal (LTG) Pt will report a 75% improvement in LB and left groin pain by 05/03/19. 04/05/19: pt reports muscle pain is much better and he con 't with lateral hip pain. He reports overall 50% improvement in pain since starting PT LTG Duration 8 weeks 2 Impairment Weakness [facility]ci Goal (LTG) Pt will present with B hip abduction and flexion to 5/5 by 05/03/19. LTG Duration 8 weeks 1 Impairment Decreased balance [facility]ci Goal (LTG) Pt will be able to perform B Tandem for 30 sec by 05/03/19. LTG Duration 8 weeks Assessment Summary Assessment Pt con't to present with lymphatic fascial tension, changes in his thoracic spine and LEs. Pt to return to [facility] will receive further dxs. Physical Therapy Plan Frequency and Duration Frequency of Treatment 2x/Week Duration of Treatment 8 weeks Plan of Care Start Date 03/03/19 Plan of Care End Date 05/03/19 Other Referrals/Consults Referrals/Consults Recommended PT recommends that pt follow- up with orthopedist to consider further work-up for left hip in setting of possible OA changes contributing to pain. He might benefits from further diagnostics of left hip. Next Visit Focus/Plan Next Note Type Treatment Note Next Visit Plan Ongoing strengthening as pt tolerates, mini wall squat. Consider Counterstrain next treatment date.
--- NOTE | 2019-04-19 12:06 | PT.OTN ---
Current Diagnoses Unilateral primary osteoarthritis, left hip (04/19/19) Strain of muscle, fascia and tendon of left hip, initial encounter (04/19/19) Physical Therapy Treatment Note PT-OP-A Visit Information Start: 03/03/19 14:55 Freq: Status: Active Protocol: Document 04/19/19 11:23 MB (Rec: 04/19/19 12:06 MB [id number]) Out-Patient Physical Therapy Visit Information Visit Information Visit Type Treatment Note Visit Start Time 11: Visit Stop Time 12:01 Total Visit Minutes 38 Visit Number [id number] Number of SURGERY AID Visits 0 PT-OP-B Current Condition Start: 03/03/19 14:55 Freq: Status: Active Protocol: Document 03/03/19 12:48 MB (Rec: 03/03/19 15:04 MB [id number]) Current Condition History of Current Condition Onset Date 5 months Current Complaints LBP and left groin discomfort History of Current Condition Pt reports 5 months of left groin discomfort that started when he was using the elliptical at the gym. Left hip x-ray 01/10/19 revealed mod B hip degenerative changes. Pt reports getting in and out of a blake, getting in and out of the car and standing increase the pain. He describes left hip adduction/ abduction, ER increasing pain. Pt states that wearing a belt increased pain across his low back and left groin and that suspenders help. He reports hx R TKR 2015 and received PT, back sxs in and history of left foot drop, great toe extensor tone, calf cramps, history of crush injury right foot. He denies paresthesias in his legs. His pain increases during the day. It does wake him up hourly. Prior Treatments and Tests PT, good response Right knee and back sxs Treatment Goals Patient/Caregiver Goals To decrease pain and be able to get back on his sail boat Personal Factors Other Personal Factors That May Effect History of multi-joint changes Therapy/Recovery and pain, back, right knee surgeries PT-OP-C Subjective Start: 03/03/19 14:55 Freq: Status: Active Protocol: Document 04/19/19 11:23 MB (Rec: 04/19/19 12:06 MB [id number]) OP-PT Subjective Patient Comments Patient Comments Pt states that he had a lot of pain after sitting playing cards. He was sitting on a hard chair. Standing for a long time and sitting on a hard chair are the hardest things. He asks about standing hip flexor stretch. PT-OP-D Balance Start: 03/03/19 14:55 Freq: Status: Active Protocol: Document 03/03/19 12:48 MB (Rec: 03/03/19 18:26 MB [id number]) Balance Tests Other Other Balance Tests Performed Pt states that he has to wear shoes d/t old crush injury of right foot. Romberg and Romberg with eyes closed 30 sec. R SLS 7 sec and pt cannot get into left SLS position. PT-OP-J Posture/Palpation/Skin Start: 03/03/19 14:55 Freq: Status: Active Protocol: Document 03/03/19 12:48 MB (Rec: 03/03/19 18:26 MB [id number]) Posture Evaluation Comments Posture Comments Standing: most notable comment is that his trunk translates to the left (SB and rotational ) and his right shoulder and right iliac crest are higher than the left. Also, tragus 2 in front of AC joint, anterior tilt pelvis. PT-OP-M Strength Start: 03/03/19 14:55 Freq: Status: Active Protocol: Document 03/03/19 12:48 MB (Rec: 03/03/19 18:26 MB [id number]) Hip Strength Hip Manual Muscle Testing Left Flexion (L2) 2- Poor- Abduction 3- Fair- Comments Supine Right Flexion (L2) 5 Normal Extension (S1) 4 Good Comments Supine Knee Strength Knee Manual Muscle Testing Left Flexion (S2) 5 Normal Extension (L3) 5 Normal Comments Supine Right Flexion (S2) 5 Normal Extension (L3) 5 Normal Comments Supine Ankle/Foot Strength Ankle and Foot Manual Muscle Testing Left Dorsiflexion (L4) 4 Good Plantarflexion (S1) 4 Good Inversion 4 Good Eversion (S1) 4 Good Comments Great toe 2-/5, tone in extensors Right Dorsiflexion (L4) 5 Normal Plantarflexion (S1) 5 Normal Inversion 5 Normal Eversion (S1) 5 Normal Comments Great toe extension 4/5 PT-OP-Q Treatments Start: 03/03/19 14:55 Freq: Status: Active Protocol: Document 04/19/19 11:23 MB (Rec: 04/19/19 12:06 MB [id number]) Therapeutic Exercises Supine Exercises Core progression Comments Performed this date: mini july, HS. Pt does not feel much with leg rocking Pelvic realignment ex Comments Performed this date Standing Exercises Hip flexor stretch in standing Comments B hip flexor stretch in standing Self-Care/Home Management Treatment Education Other Education Ed pt in standing up every 20 minutes, benefits of getting cushion for sitting, ease of position, especially if moving to standing and then performing standing hip flexor stretch. Ed to slow down exercises. PT-OP-T Assessment and Plan Start: 03/03/19 14:55 Freq: Status: Active Protocol: Document 04/19/19 11:23 MB (Rec: 04/19/19 12:06 MB [id number]) Physical Therapy Assessment Goals 5 Bat Person Goal (LTG) Pt will perform progressive HEP with I by 05/03/19. 04/05/19: pt is performing progressive flexibility, strengthening and balance exercises LTG Duration 8 weeks 4 Bat Person Goal (LTG) Pt will present with an improved LE functional index score reflecting no more than 40% impairment by 05/03/19. 04/05/19: LEF reflects 61.25% impairment 04/05/19: LTG Duration 8 weeks 3 Bat Person Goal (LTG) Pt will report a 75% improvement in LB and left groin pain by 05/03/19. 04/05/19: pt reports muscle pain is much better and he con 't with lateral hip pain. He reports overall 50% improvement in pain since starting PT LTG Duration 8 weeks 2 Impairment Weakness Residential Goal (LTG) Pt will present with B hip abduction and flexion to 5/5 by 05/03/19. LTG Duration 8 weeks 1 Impairment Decreased balance Residential Goal (LTG) Pt will be able to perform B Tandem for 30 sec by 05/03/19. LTG Duration 8 weeks Assessment Summary Assessment Pt asked lingering questions about exercises and possible course for left hip work-up. He is following up with surgeon and then has one final visit with PT in April. Pt to con't HEP. Physical Therapy Plan Frequency and Duration Frequency of Treatment 2x/Week Duration of Treatment 8 weeks Plan of Care Start Date 03/03/19 Plan of Care End Date 05/03/19 Other Referrals/Consults Referrals/Consults Recommended PT recommends that pt follow- up with orthopedist to consider further work-up for left hip in setting of possible OA changes contributing to pain. He might benefits from further diagnostics of left hip. May also consider work-up for spine. Next Visit Focus/Plan Next Note Type Discharge Summary Next Visit Plan Will d/t patient next treatment. He follows-up with Dr. Cannon 04/27/19.
--- NOTE | 2019-05-05 13:49 | PT.OPDS ---
Current Diagnoses Unilateral primary osteoarthritis, left hip (04/19/19) Strain of muscle, fascia and tendon of left hip, initial encounter (04/19/19) Visit Care Team Role Provider Type Alejandro Gallegos MD Primary Care Provider Physician Specialty: Internal Medicine Address: [address] [place] [address], [address] Email: [email or web address] Matthew Cannon MD Attending Provider Physician Specialty: Orthopedic Surgery Address: [address] [place] [address], [address] Email: [email or web address] Visit Number Visit Number Discharge Summary PT-OP-B Current Condition Start: 03/03/19 14:55 Freq: Status: Active Protocol: Document 03/03/19 12:48 MB (Rec: 03/03/19 15:04 MB [id number]) Current Condition History of Current Condition Onset Date 5 months Current Complaints LBP and left groin discomfort History of Current Condition Pt reports 5 months of left groin discomfort that started when he was using the elliptical at the gym. Left hip x-ray 01/10/19 revealed mod B hip degenerative changes. Pt reports getting in and out of a blake, getting in and out of the car and standing increase the pain. He describes left hip adduction/ abduction, ER increasing pain. Pt states that wearing a belt increased pain across his low back and left groin and that suspenders help. He reports hx R TKR 2015 and received PT, back sxs in and history of left foot drop, great toe extensor tone, calf cramps, history of crush injury right foot. He denies paresthesias in his legs. His pain increases during the day. It does wake him up hourly. Prior Treatments and Tests PT, good response Right knee and back sxs Treatment Goals Patient/Caregiver Goals To decrease pain and be able to get back on his sail boat Personal Factors Other Personal Factors That May Effect History of multi-joint changes Therapy/Recovery and pain, back, right knee surgeries PT-OP-C Subjective Start: 03/03/19 14:55 Freq: Status: Active Protocol: Document 04/19/19 11:23 MB (Rec: 04/19/19 12:06 MB [id number]) OP-PT Subjective Patient Comments Patient Comments Pt states that he had a lot of pain after sitting playing cards. He was sitting on a hard chair. Standing for a long time and sitting on a hard chair are the hardest things. He asks about standing hip flexor stretch. PT-OP-D Balance Start: 03/03/19 14:55 Freq: Status: Active Protocol: Document 03/03/19 12:48 MB (Rec: 03/03/19 18:26 MB [id number]) Balance Tests Other Other Balance Tests Performed Pt states that he has to wear shoes d/t old crush injury of right foot. Romberg and Romberg with eyes closed 30 sec. R SLS 7 sec and pt cannot get into left SLS position. PT-OP-J Posture/Palpation/Skin Start: 03/03/19 14:55 Freq: Status: Active Protocol: Document 03/03/19 12:48 MB (Rec: 03/03/19 18:26 MB [id number]) Posture Evaluation Comments Posture Comments Standing: most notable comment is that his trunk translates to the left (SB and rotational ) and his right shoulder and right iliac crest are higher than the left. Also, tragus 2 in front of AC joint, anterior tilt pelvis. PT-OP-M Strength Start: 03/03/19 14:55 Freq: Status: Active Protocol: Document 03/03/19 12:48 MB (Rec: 03/03/19 18:26 MB [id number]) Hip Strength Hip Manual Muscle Testing Left Flexion (L2) 2- Poor- Abduction 3- Fair- Comments Supine Right Flexion (L2) 5 Normal Extension (S1) 4 Good Comments Supine Knee Strength Knee Manual Muscle Testing Left Flexion (S2) 5 Normal Extension (L3) 5 Normal Comments Supine Right Flexion (S2) 5 Normal Extension (L3) 5 Normal Comments Supine Ankle/Foot Strength Ankle and Foot Manual Muscle Testing Left Dorsiflexion (L4) 4 Good Plantarflexion (S1) 4 Good Inversion 4 Good Eversion (S1) 4 Good Comments Great toe 2-/5, tone in extensors Right Dorsiflexion (L4) 5 Normal Plantarflexion (S1) 5 Normal Inversion 5 Normal Eversion (S1) 5 Normal Comments Great toe extension 4/5 PT-OP-T Assessment and Plan Start: 03/03/19 14:55 Freq: Status: Active Protocol: Document 04/19/19 11:23 MB (Rec: 04/19/19 12:06 MB [id number]) Physical Therapy Assessment Goals 5 Senior Living Goal (LTG) Pt will perform progressive HEP with I by 05/03/19. 04/05/19: pt is performing progressive flexibility, strengthening and balance exercises LTG Duration 8 weeks 4 Behavioral Specialist Goal (LTG) Pt will present with an improved LE functional index score reflecting no more than 40% impairment by 05/03/19. 04/05/19: LEF reflects 61.25% impairment 04/05/19: LTG Duration 8 weeks 3 Senior Living Goal (LTG) Pt will report a 75% improvement in LB and left groin pain by 05/03/19. 04/05/19: pt reports muscle pain is much better and he con 't with lateral hip pain. He reports overall 50% improvement in pain since starting PT LTG Duration 8 weeks 2 Impairment Weakness Behavioral Specialist Goal (LTG) Pt will present with B hip abduction and flexion to 5/5 by 05/03/19. LTG Duration 8 weeks 1 Impairment Decreased balance Behavioral Specialist Goal (LTG) Pt will be able to perform B Tandem for 30 sec by 05/03/19. LTG Duration 8 weeks Assessment Summary Assessment Pt asked lingering questions about exercises and possible course for left hip work-up. He is following up with surgeon and then has one final visit with PT in April. Pt to con't HEP. Physical Therapy Plan Frequency and Duration Frequency of Treatment 2x/Week Duration of Treatment 8 weeks Plan of Care Start Date 03/03/19 Plan of Care End Date 05/03/19 Other Referrals/Consults Referrals/Consults Recommended PT recommends that pt follow- up with orthopedist to consider further work-up for left hip in setting of possible OA changes contributing to pain. He might benefits from further diagnostics of left hip. May also consider work-up for spine. Next Visit Focus/Plan Next Note Type Discharge Summary Next Visit Plan Will d/t patient next treatment. He follows-up with Dr. Cannon 04/27/19.
== END 2019-05-07 14:11 ==
LOC: PHYS 11:15
PROVIDERS: PCP Internal Medicine; Visit Provider Orthopaedic Surgery
DX: S76.012A Strain of muscle, fascia and tendon of left hip, initial encounter (principal); M16.12 Unilateral primary osteoarthritis, left hip
CPT/HCPCS: 97110; 97140; 97161; 97535

== ENCOUNTER → 2019-07-02 16:13 | Outpatient (CLI) | payer MEDICARE, SELFPAY ==
--- NOTE | 2019-07-02 | DI.MRI.S_ITS ---
PROCEDURE: MR LUMBAR SPINE WO CON INDICATIONS: Low back and left hip and leg radicular pain TECHNIQUE: Noncontrast sagittal T1 spin echo and T2 fast echo, sagittal STIR, axial T1 and T2 fast spin echo through the lumbar spine. In cases with scoliosis, additional coronal T2 fast spin echo may be performed. [facility], 14:56. FINDINGS: Image quality: Excellent. Alignment and Curvature: 5 lumbar type vertebral bodies are present by plain film. Mild grade 1 retrolisthesis of L1 on L2, L2 on L3, L3 on L4, and L4 on L5. Bone Marrow: Marrow is of normal overall signal. No acute vertebral body compression fractures. There is mild reactive signal within the endplates adjacent to the T11-T12, T12-L1, L1-L2, L2-L3, L3-L4, L4-L5, and L5-S1 intervertebral discs. Spinal Cord: Conus medullaris terminates at the mid L1 level. Visualized cord demonstrates normal signal and size. Paraspinous Soft Tissues: No paravertebral masses. L1-L2: Moderate disc height loss and desiccation. Mild diffuse disc bulge. Mild facet and ligamentum flavum hypertrophy. Mild canal stenosis. No foraminal stenosis. L2-L3: Moderate disc height loss and desiccation. Mild diffuse disc bulge. Mild canal stenosis. Mild bilateral foraminal stenosis. L3-L4: Moderate disc height loss and desiccation. Moderate diffuse disc bulge with superimposed broad-based right posterolateral protrusion. Mild facet and ligamentum flavum hypertrophy. Mild canal stenosis. Mild right greater than left foraminal stenosis. L4-L5: Mild disc height loss. Moderate disc desiccation. Mild diffuse disc bulge with superimposed broad-based left posterolateral protrusion. Mild facet and ligament flavum hypertrophy bilaterally. Left-sided laminotomy. Mild canal stenosis. Moderate to severe left and mild right foraminal stenosis. Mild left L4 nerve root compression. L5-S1: Moderate disc height loss and desiccation. Mild diffuse disc bulge with superimposed broad-based left paracentral and posterolateral broad-based protrusion. Mild bilateral facet hypertrophy. Left hemilaminotomy. No significant canal stenosis. Severe left and mild right foraminal stenosis. Left L5 nerve root compression. IMPRESSION: 1. Multilevel degenerative disc and facet disease, as well as ligamentum flavum hypertrophy and epidural lipomatosis. 2. Post cervical sequelae of L4-L5 and L5-S1. 3. Mild multilevel canal stenoses. 4. Multilevel foraminal stenoses, worst on the left at L4-L5 and L5-S1, where there is associated intraforaminal nerve root compression. Recommend correlation with clinical symptoms to ascertain relevance of these findings. Dictated by: Robbie James M.D. on 07/02/2019 at 15:58 Approved by: Robbie James M.D. on 07/02/2019 at 16:01
== END ==
PROVIDERS: PCP Internal Medicine; Referring Provider Internal Medicine; Visit Provider Internal Medicine
DX: M25.552 Pain in left hip (principal); M51.16 Intervertebral disc disorders with radiculopathy, lumbar region; M51.17 Intervertebral disc disorders with radiculopathy, lumbosacral region; M48.061 Spinal stenosis, lumbar region without neurogenic claudication; M48.07 Spinal stenosis, lumbosacral region; E88.2 Lipomatosis, not elsewhere classified
CPT/HCPCS: 72148

== ENCOUNTER 2019-08-05 09:45 | Outpatient (RCR) | payer MEDICARE, SELFPAY ==
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
--- NOTE | 2019-08-02 16:19 | PT.OPPOC ---
Physical, Occupational & Speech Therapy At [facility] Current Diagnoses Spondylosis without myelopathy or radiculopathy, lumbar region (08/02/19) Visit Care Team Role Provider Type Alejandro Gallegos MD Primary Care Provider Physician Specialty: Internal Medicine Address: [address] [place] [address], [id number] Email: [email or web address] Bandar Leal MD Attending Provider Physician Referring Provider Specialty: Physical Medicine and Rehab Address: [address] [place] [address], [id number] Email: [email or web address] Plan Of Care PT-OP-T Assessment and Plan Start: 08/02/19 07:30 Freq: Status: Active Protocol: Document 08/02/19 10:31 MB (Rec: 08/02/19 16:18 MB [id number]) Physical Therapy Assessment Rehab Potential Rehabilitation Potential Poor Evaluation Complexity Number of Personal Factors/Comorbidities 1-2 Number of Body Systems Impaired 1-2 Clinical Presentation at Evaluation Evolving Impairments Impairments Activity Tolerance,Balance, Gait,Pain,Posture,ROM,Soft Tissue Mobility,Strength Other Impairments Personal factors include pt con't to sleep in cramped sail boat often, increased body habitus. Body systems include neuromuscular, musculoskeletal . His clinical presentation may be evolving d/t found spinal changes and multi-joint pain. Goals 5 Snow Removing Supervisor Goal (LTG) Pt will present with an improved Oswestry LBP scale score to reflect no more than 30% impairment to allow travel on 11/27/2019 to [place] via his boat by 10/02/2019. LTG Duration 8 weeks 4 Senior Care Goal (LTG) Pt will perform progressive HEP with I to improve posture, alignment, flexibility and pain by 10/02/2019. LTG Duration 8 weeks 3 Senior Care Goal (LTG) Pt will present with improved B hip flexion, abduction strength to 09/27 to improve LE function by 10/02/2019. LTG Duration 8 weeks 2 Senior Care Goal (LTG) Pt will perform at least 1000 feet gait with LRAD in 6 minutes to improve community ambultation by 10/02/2019. LTG Duration 8 weeks Assessment Summary Assessment Pt is a 69 y/o male recenting discharged from PT after reports of left groin and SI pain. Pt has had MRI lumbar spine performed since then and was found to have L4-S1 changes contributing to pain. Left hip cortisone injection did not help his pain. He has been recommended to try conservative treatment with PT once more and then next steps could be lumbar injection and /or surgery. He has a history of lumbar injury and surgery and left foot changes as a result. Pt presents with antalgic gait, pain, postural changes and weakness. He will benefit from PT trial to improve flexibility, strength and gait. His goal is to get to [place] via sail boat for 26 of November. Barriers include previous PT did not cause significant changes in pain, reports of increased pain with strengthening, spinal changes. Pt is agreeable to try aquatic therapy this PT course. Physical Therapy Plan Frequency and Duration Frequency of Treatment 2x/Week Duration of Treatment 8 weeks Plan of Care Start Date 08/02/19 Plan of Care End Date 10/04/19 Therapeutic Interventions Therapeutic Interventions Aquatic Therapy,Balance Training,Gait Training,Home Exercise Program,Manual Therapy,Neuromuscular Re- education,Patient/Caregiver Education,Self-Care/Home Management,Soft Tissue Mobilization,Taping, Therapeutic Activities, Therapeutic Exercises Modalities Cold Pack/Ice Massage,Electric Stimulation,Hot Packs, Ultrasound Other Therapeutic Interventions LTT Next Visit Focus/Plan Next Note Type Treatment Note Next Visit Plan Review previous HEP Plan of Care Dates Plan of Care Start Date 08/02/19 Plan of Care End Date 10/04/19 Electronically Signed by: Jalyn Dinh PT 08/02/19 2310 Please Sign and Return: I have reviewed this Plan of Care and certify that the skilled therapy services above are required to meet the patient?s needs. Physician Signature Date Printed Name and Credentials Clinical Instructor Signature Printed Name and Credentials
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
--- NOTE | 2019-08-11 17:16 | PT-OP ANOTE ---
PT speaks with pt who's might have been exposed to COVID-19. She does not qualify for testing. She is not symptomatic. Pt and his were advised to quarentine. Will cancel July appointments and con't in August at this point.
--- NOTE | 2019-09-04 13:50 | PT-OP ANOTE ---
PT calls pt and leaves message re: PT plan and asks pt to email PT at work email address re: plan and if he would like PT to call back on another day PT is working.
--- NOTE | 2019-09-18 15:28 | PT-OP ANOTE ---
PT calls pt. Pt states that he is going to have surgery at some point. PT communicates that we do not know yet when clinic will reopen, that clinic hours will be limited to begin with, that therapists and patients will wear masks and that the gym situation will allow for 6 feet between patients. Pt wants to get into PT per doctor order and to progress HEP to see if it's helpful.
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
== END 2019-10-13 11:31 | disposition home or self-care (01) ==
LOC: PHYS 09:45
PROVIDERS: PCP Internal Medicine; Referring Provider Physical Medicine & Rehabilitation Pain Medicine; Visit Provider Physical Medicine & Rehabilitation Pain Medicine
DX: M47.816 Spondylosis without myelopathy or radiculopathy, lumbar region (principal)
CPT/HCPCS: 97110; 97161

== ENCOUNTER → 2019-11-29 08:54 | Outpatient (CLI) | payer MEDICARE, SELFPAY ==
[2019-11-29 10:09] LABS: Add Manual Diff / Slide Review NO; Basophils Absolute Auto 100 /uL (0-100); Eosinophils Absolute Auto 200 /uL (0-450); Eosinophils Percent Auto 4.5 % (2-4); Hematocrit 41.2 % (41-53); Hemoglobin 14.2 g/dL (13.5-17.5); Lymphocytes Absolute Auto 1400 /uL (1100-4500); Mean Corpuscular HGB Conc 34.4 % (30-36); Mean Corpuscular Hemoglobin 32.5 PG (26-34); Mean Corpuscular Volume 94.4 fL (80-100); Monocytes Absolute Auto 500 /uL (0-900); Monocytes Percent Auto 9.9 % (3-14); Neutrophils Absolute Auto 2900 /uL (1500-7000); Neutrophils Percent Auto 57.6 % (50-75); Platelet Count 181 X10^3/uL (150-400); Red Blood Cell Count 4.36 X10^6/uL (4.5-5.9); Red Cell Distribution Width 14.5 % (11.6-14.8); White Blood Cell Count 5.1 X10^3/uL (4.5-11.0)
[2019-11-29 10:37] LABS: Alanine Aminotransferase 34 IU/L (<50); Albumin 4.3 g/dL (3.5-5.0); Albumin Globulin Ratio 1.3 (1.0-2.8); Alkaline Phosphatase 51 U/L (38-126); Aspartate Aminotransferase 35 IU/L (17-59); BUN Creatinine Ratio 23.5 (6-22); Bilirubin Total 0.7 mg/dL (0.2-1.3); Blood Urea Nitrogen 23 mg/dL (9-20); Calcium 9.7 mg/dL (8.4-10.2); Carbon Dioxide 27 mmol/L (22-32); Chloride 100 mmol/L (98-107); Cholesterol 139 mg/dL (140-199); Estimated Glomerular Filt Rate > 60.0 mL/min (>60); Globulin 3.2 g/dL (1.7-4.1); Glucose 108 mg/dL (80-110); HDL Cholesterol 28 mg/dL (40-60); HEMOLYSIS < 15 (0-50); LDL Cholesterol Calculated 77 mg/dL (<100); Potassium 4.3 mmol/L (3.4-5.1); Sodium 135 mmol/L (137-145); Total Protein 7.5 g/dL (6.3-8.2); Triglycerides 170 mg/dL (35-150)
[2019-11-29 11:03] LABS: Prostate Specific Antigen Scrn 2.06 ng/mL (0.1-4.0)
== END ==
PROVIDERS: PCP Internal Medicine; Referring Provider Internal Medicine; Visit Provider Orthopaedic Surgery Orthopaedic Surgery of the Spine
DX: Z01.818 Encounter for other preprocedural examination (principal); Z01.812 Encounter for preprocedural laboratory examination; M96.1 Postlaminectomy syndrome, not elsewhere classified; M48.061 Spinal stenosis, lumbar region without neurogenic claudication; Z12.5 Encounter for screening for malignant neoplasm of prostate; I10 Essential (primary) hypertension; E78.00 Pure hypercholesterolemia, unspecified
CPT/HCPCS: 36415; 80053; 80061; 85025; 93005; 93010; G0103

== ENCOUNTER → 2019-12-05 16:18 | Outpatient (CLI) | payer MEDICARE, SELFPAY ==
[2019-12-06 07:56] LABS: COVID19 Sendout Not Detected (Not Detect)
== END ==
PROVIDERS: PCP Internal Medicine; Visit Provider Physician Assistant
DX: Z11.59 Encounter for screening for other viral diseases (principal)
CPT/HCPCS: 87635

== ENCOUNTER 2019-12-09 10:39 | Observation (INO) | payer MEDICARE, SELFPAY ==
[2019-12-02 13:54] VITALS: BMI 35.1
[2019-12-08] VITALS (18 sets, daily range): BP systolic 92–139; BP diastolic 58–93; PULSE 73–910; RESP 7–18; TEMP 35.6–37.5; O2SAT 80–100; BMI 34.2
--- NOTE | 2019-12-08 | DI.RAD.S_ITS ---
PROCEDURE: XR LUMBAR SPINE 2-3V INDICATIONS: L4-5, L5-S1 TLIF TECHNIQUE: 2 operative views of the lumbar spine were acquired. COMPARISON: None. FINDINGS: Operative C-arm images demonstrate posterior lateral arian and pedicle screw fixation at L4 through S1 with interbody fusion material at L4-L5 and L5-S1. There is no radiographic evidence of complications. IMPRESSION: Operative imaging utilized for L4 through S1 fusion Dictated by: Mihir Yu M.D. on 12/08/2019 at 12:59 Approved by: Mihir Yu M.D. on 12/08/2019 at 13:00
--- NOTE | 2019-12-08 08:26 | PM.PREOP ---
Pre-operative Note COVID-19 COVID-19 status: Negative Result date/Date tested (Pos, Neg/Pending): 12/06/19 Interval Note History & Physical reviewed/Exam performed by Physician: Yes Changes to H&P: No
[2019-12-08] MEDS: ACETAMINOPHEN 325 MG TABLET 975 MG PO (08:37)
[2019-12-08] MEDS: LACTATED RINGERS 1,000 ML 42 ML IV ×2 (08:37→11:13)
[2019-12-08] MEDS: GABAPENTIN 300 MG CAPSULE PO (08:38)
[2019-12-08] MEDS: CEFAZOLIN 2 GM/100 ML FROZ.PIGGY IV ×2 (08:46→16:02)
[2019-12-08] MEDS: CEFAZOLIN 1 GM VIAL IV (09:12)
--- NOTE | 2019-12-08 09:18 | SUR.OPER ---
Prone on spine table, head in foam head support, padded chest and pelvic supports, gel pad at knees, lower legs supported by pillows; nipples, genitalia and toes free of pressure, arms secured on foam padded arm boards at <90 degrees abduction. Tape over blanket at thigh secured to table.
[2019-12-08] MEDS: BUPIVACAINE LIPOSOME 266 MG/20 ML VIAL INJ (09:21)
[2019-12-08] MEDS: BUPIVACAINE 0.25% W/ EPI 30 ML VIAL INJ (09:28)
--- NOTE | 2019-12-08 12:24 | P.OP_ITS ---
Operative Date/Time/Diagnoses Date of procedure: 12/08/19 Time of procedure: 08:24 Pre-op diagnosis: 1. L4-5, L5-S1 post-laminectomy syndrome 2. Spinal stenosis with radiculopathy 3. Lumbar spondylosis with radiculopathy Post-op diagnosis: same Procedure & Clinicians Procedure: 1. L4-5, L5-S1 Postero-lateral and posterior interbody fusion 2. L4-5, L5-S1 interbody cage placement. 3. L4-5, L5-S1 decompressive laminectomy with bilateral facetecomies 4. L4-5, L5-S1 Posterior segmental instrumentation 5. [place] of bone marrow from iliac crest 6. Utilization of microsurgical technique and operating microscope Same procedure as scheduled: Yes Indications: Patient has been having chronic back pain and worsening lumbar radiculopathy. Patient failed multiple conservative management with worsening pain weakness and numbness in her lower extremity. Patient has been having difficulty performing activity of daily living. After discussing risks benefits of treatment options, patient elected proceed with surgery. Surgeon: Juliet Barnes Butt Welder: Akanksha Montanez Click Yes if Unassisted: No Anesthesia Type: General Operative Notes Closure Type: primary Specimen(s): none sent Prosthetic devices, grafts, tissues, transplants, or devices: Globus revolve screws, Rise cages Applied: catheter Estimated Blood Loss (mL): 150 Blood products transfused: none Procedure in detail: Patient was seen in the preoperative area. Risks and benefits of the surgery was discussed with the patient. Informed consent was obtained from the patient and placed in the chart. Surgical site was marked. Patient was taken to the operative room. General anesthesia was administered. Prophylactic antibiotic was given to the patient less than 30 min before the incision was made. Patient was placed into a prone position on the Flavio table. Patient's back was then prepped and draped in the sterile fashion. Time- out was performed at this time. Using AP and lateral C-arm imaging the interval between L4-S1 was identified and marked on patient's back. A 2 inch incision 2 in from midline was made on the left side first. The fascia was incised in line with skin incision. Globus MARS retractors was placed inside the incision and docked onto the L4 and L5 lamina. Using microsurgical technique and operating microscope, a L4 and L5 laminectomy and L4-5 L5-S1 facetectomy was performed using a Kerrison rongeur. During the process of decompression more than 75% of bilateral L4-5 L5-S1 facets were removed in order to decompress the spinal canal and the lateral recess. The L4- 5 L5-S1 level was grossly unstable after the decompression was completed and requiring the fusion procedure. Patient was found have severe central and neural foramen stenosis at both levels. The stenosis was fully decompressed after the laminectomy facetectomy was completed. The patient was found to have significant amount of epidural scar tissue and adhesion which was carefully resected during the process of decompression. The disc space at L4-5, L5-S1 was identified. And a total diskectomy was performed at L4-5, L5-S1 level. The endplates were decorticated using a rasp and shaver. The total diskectomy and decortication was performed at L4-5, L5-S1 level in order to to accomplish a L4- 5, L5-S1 fusion. The local bone from the laminectomy and facetectomy was saved for local bone grafting. After the total diskectomy and decortication was completed, Trifecta bone graft material was combined with local bone that was harvested earlier. At this time, a separate skin is incision was made over the iliac crest. A Jamshidi needle was inserted into the iliac crest through a separate skin incision. 5 cc of bone marrow aspiration was obtained through the separate skin incision using a Jamshidi needle from the iliac crest. The bone marrow aspiration was combined with local bone and the Trifecta bone grafting material. The bone grafting material was placed into the L4-5, L5-S1 interbody space along with two cages, one expandable cage at each level. The cages were expanded to their maximum height using the torque limiting screwdriver. At this time a mirror image incision was made on the right side. The fascia was incised in line with the skin incision. Globus MARS retractor was inserted and docked onto the L4-5, L5-S1 posterolateral gutter. Using the power drill, posterior-lateral decortication was performed at L4-5, L5-S1 level until bleeding cortical bone was identified. The remaining bone grafting material was placed into the L4-5 L5-S1 posterior lateral gutter he order to accomplish posterolateral fusion at the L4-5 L5-S1 levels. Using the double C-arm technique, pedicle screws were placed into the L4, L5, S1 pedicles bilaterally. This was done by placing the Jamshidi needle into the pedicles, then placing the guidewires over the Jamshidi needle, and finally placing the cannulated screws over the guidewires bilaterally. After the pedicle screws were placed, 2 titanium rods was locked into the heads of the pedicle screws using locking caps and torque limiting screwdriver. Total 6 pedicles screws were placed. After all the hardware was placed, and confirmed with AP and lateral C-arm imaging, the wound was then irrigated with sterile normal saline and packed with Ray-Rohit gauze for 3 min to accomplish hemostasis. After the gauze was removed the deep fascia was closed with #1 Vicryl suture. The subcutaneous layer was closed with 2-0 Vicryl. The skin was closed with skin roseline. Patient tolerated the procedure well. There were no complications. Complications: none Post-operative Condition: stable Disposition: PACU Plan for aftercare: Admit to inpatient hospital
[2019-12-08] MEDS: HYDROMORPHONE 2 MG INJ IV ×3 (13:04→13:15)
[2019-12-08] MEDS: fentaNYL 100 MCG/2 ML INJ IV ×3 (13:04→13:16)
[2019-12-08] MEDS: OXYCODONE IR 5 MG TABLET PO (13:08)
--- NOTE | 2019-12-08 14:29 | SUR.PHASEI ---
Patient continued to have apnea while sleeping and would drop down to the low 80's on 3L if nasal cannula was in nose. Patient dropped down to high 90's if nasal canula was in mouth. Remained at 99% while awake. Updated Dr. Mustafa and received order for MARIE protocol and for patient to be set up on CPAP when he gets to his room. Called RT and gave report, RT stated they would meet patient in room. Patient taken up to room with all belongings. Left in stable condition with RT and receiving RN at bedside.
[2019-12-08] MEDS: SODIUM CHLORIDE 0.9% 1,000 ML 100 ML IV (14:59)
[2019-12-08] MEDS: SIMVASTATIN 10 MG TABLET PO (16:02)
[2019-12-08] MEDS: HYDROMORPHONE 0.5 MG INJ IV (16:02)
[2019-12-08] MEDS: HYDROCODONE/ACET 10/325 TABLET 1 TAB PO (19:02)
[2019-12-08] MEDS: DOCUSATE 100 MG CAPSULE PO (20:57)
[2019-12-08] MEDS: SENNOSIDES 8.6 MG TABLET 17.2 MG PO (20:57)
[2019-12-08] MEDS: LOSARTAN 25 MG TABLET PO (21:00)
[2019-12-08] MEDS: HYDROCODONE/ACET 5/325 TABLET 1 TAB PO (22:27)
[2019-12-09] VITALS (7 sets, daily range): BP systolic 122–141; BP diastolic 73–90; PULSE 86–102; RESP 16–20; TEMP 35.9–36.7; O2SAT 94–100
[2019-12-09] MEDS: CEFAZOLIN 2 GM/100 ML FROZ.PIGGY IV (00:55)
[2019-12-09] MEDS: HYDROCODONE/ACET 10/325 TABLET 1 TAB PO ×4 (02:15→12:24)
[2019-12-09] MEDS: PANTOPRAZOLE 20 MG TABLET PO (06:13)
[2019-12-09 06:37] LABS: Hematocrit 37.9 % (41-53)
--- NOTE | 2019-12-09 07:44 | PM.PNPO.1 ---
Subjective Subjective Date Patient Seen: 12/09/19 Time Patient Seen: 07:44 Interval history: Postop day 1 L4-S1 TLIF with Dr. Barnes. Patient required oxygen last night. He has not been working with physical therapy. Patient's pain has been around in a, he reports he can take oxycodone as it makes him very loopy. No previous problems taking steroids. Exam Vital Signs (past 8 hours): - 12/08/19 23:46 12/08/19 23:55 12/09/19 04:15 Temperature 98.8 F 97.4 F L Pulse Rate 101 H 98 H Respiratory Rate 16 18 Blood Pressure 131/81 134/84 Pulse Oximetry 96 96 96 Oxygen Delivery Method BiPAP Oxygen Flow Rate 2 Narrative Exam Narrative: Patient is sitting up in bed in no acute distress. Alert orient x3. Patient has nasal cannula on. Left thigh numbness that is baseline since discecomty in 90s. He is able to actively dorsiflex and plantar flex. Pulses are symmetrical. Objective Labs Result Diagrams: 12/09/19 06:14 Labs: Laboratory Results - last 24 hr 12/09/19 06:14 Hgb 13.0 L Hct 37.9 L Assessment & Plan Post-op Postoperative Procedures: Procedures Operation Date: 12/08/19 08:45 Actual Procedures Side Surgeon p L4-5,L5-S1 TLIF w/posterior instrumentation Juliet Barnes MD Patient will work with physical therapy. Patient is slow to mobilize. Keep Rodriguez in place until mobilizing around room. Patient will likely need O2 at night. Given patient's pain level, and sensitivity to pain medication will start Decadron 10 mg 1 time dose. Once patient is mobilizing safely with adequate pain control he will discharge home likely in next 2-3 days. Quality VTE Deep Vein Thrombosis/Pulmonary Embolism Present on Admission: No
[2019-12-09] MEDS: FLUTICASONE 120 SPRAY/16 GM SPRAY.SUSP NASAL (09:38)
[2019-12-09] MEDS: DOCUSATE 100 MG CAPSULE PO ×2 (09:39→20:28)
[2019-12-09] MEDS: LORATADINE 10 MG TABLET PO (09:39)
[2019-12-09] MEDS: MULTIVITAMIN 1 TABLET 1 TAB PO (09:39)
[2019-12-09] MEDS: ASPIRIN EC 81 MG TABLET PO (09:40)
[2019-12-09] MEDS: NAPROXEN 250 MG TABLET PO (09:40)
[2019-12-09] MEDS: hydroCHLOROthiazide 12.5 MG CAPSULE PO (09:43)
[2019-12-09] MEDS: DEXAMETHASONE 10 MG/ML VIAL PO (10:33)
--- NOTE | 2019-12-09 11:09 | PT.IIE ---
Current Diagnoses Spinal stenosis, lumbar region without neurogenic claudication (12/08/19) Postlaminectomy syndrome, not elsewhere classified (12/08/19) Surgery Performed Operation Date: 12/08/19 08:45 Actual Procedures p L4-5,L5-S1 TLIF w/posterior instrumentation - Juliet Barnes MD Surgical History (Last Updated 12/02/19 @ 13:59 by Amaris Montez RN) History of arthroplasty of right knee (Acute 01/23/15) History of vasectomy (Acute 1989) Hx of appendectomy (Acute) Hx of eye surgery (Acute) Hx of foot surgery (Acute 1984) Hx of laminectomy (Acute ~1989) Hx of lithotripsy (Acute) Medical History (Last Updated 12/02/19 @ 14:34 by Amaris Montez RN) Anxiety (Acute) Exposure to COVID-19 virus (Acute ~07/2019) GERD (gastroesophageal reflux disease) (Acute) HTN (hypertension) (Acute) Kidney stones (Acute) PVC's (premature ventricular contractions) (Acute) RBBB (right bundle branch block) (Acute) Physical Therapy Inpatient Evaluation/Re-Eval M1 PT/OT-IP Prior Functional Status Start: 12/09/19 08:28 Freq: NEEDED Status: Active Protocol: Document 12/09/19 10:50 AW (Rec: 12/09/19 11:09 AW [id number]) Medical Review Prior Functional Status Medical History Reviewed Yes Communication WNL. Pt is an effective verbal communicator. Mobility and Gait Pt is mod IND with SPC. He is able to walk ~45 minutes with the cane. Activities of Daily Living and IADL's Pt uses a homemade sock aid to don his left sock but is otherwise independent with ADL 's. 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 Social History Household Members spouse Living Arrangements House Number of Floors (Floors) One Floor Number of Stairs To Enter/Railing? 1 low step to enter through the back door. 2 steps with left-sided railing at the front entrance. Pt has 27 high bed and tends to use his cane to assist with sidelying to sit transition after log roll. Home Environment High Toilet,Walk in Shower Home Equipment Straight Cane,Grab Bars Near Toilet Additional Social History Comment Pt lives with his , Siria, who has a flexible work schedule and will be able to provide assist as needed. Pt and his spend 2 days each - separately - on their boat. Pt does not plan to go to the boat during his first few weeks after surgery. M2 PT-IP Current Condition Start: 12/09/19 08:28 Freq: NEEDED Status: Active Protocol: Document 12/09/19 10:50 AW (Rec: 12/09/19 11:09 AW [id number]) Physical Therapy Current Condition Current Condition Evaluation Date 12/09/19 Treatment Diagnosis s/p L4-5 L5-S1 TLIF; difficulty in walking Onset Date 12/08/19 Precautions Lumbar Precautions Log Roll,No Twisting,Limit Bending,Lifting Restriction of 10 lbs,Gait Belt above Incisional Area M3 PT-IP Subjective Start: 12/09/19 08:28 Freq: NEEDED Status: Active Protocol: Document 12/09/19 10:50 AW (Rec: 12/09/19 11:09 AW [id number]) Subjective Physical Therapy Visit Type Type Initial Evaluation Visit Start Time 09:27 Visit Stop Time 10:36 Total Visit Minutes 31 Notes Split visit [id number] and [phone] to allow for pain med administration Number of MANAGER MATERIAL Visits 0 Physical Therapy Visit Comments Patient Comments Pt is willing to work with PT Patient Goals To go home after surgery with his assisting Therapy Pain Assessment Pain When Pain Assessed During Mobility Pain Present Pain Present Pain Reported Location back Intensity 6 Pain Management Techniques Timing of Activity with Medications M4 PT-IP Mobility and Gait Start: 12/09/19 08:28 Freq: NEEDED Status: Active Protocol: Document 12/09/19 10:50 AW (Rec: 12/09/19 11:09 AW [id number]) PT-Bed Mobility Assessment Rolling Type of Rolling Log Rolling,Roll to Left Level of Assist Minimal Assistance,1 Person Assistance Supine to Sit Supine to Sit Moderate Assistance,1 Person Assistance,Bedrails Scooting Scooting to Edge of Bed Standby Assistance Scooting Up and Down in Bed Standby Assistance PT-Transfer Assessment Sit to and From Stand Sit to and from Stand Minimal Assistance,1 Person Assistance,Use of Upper Extremities Equipment Transfer Assistive Device Gait Belt,Front Wheeled Walker Orthotic/Prosthetic Devices or Brace: No Transfers Transfer Destination Chair Transfer Technique pt ambulated with FWW Transfer Ability Level of Assist Contact Guard Assistance,1 Person Assistance,Use of Upper Extremities Comments Mobility Comments Pt completed log roll to his left side as he would at home min A x 1 and then sidelying to sit transition mod A x 1 with use of the bed rail to push up from. Pt states he would normally use his cane in a similar fashion at home. He was able to sit EOB with UE support. BP in sitting was 135 /83 HR 98. Pt stood using FWW min A x 1 and ambulated in the room for a total of 12 feet. He transferred to the chair CGA and cues to use both hands on the chair to slow his descent and to ensure no twisting. He was positioned on the chair with call light and all needs within reach. BP after activity was 133/76 HR 106. Pt verbally agreed to use the call light for all mobility needs. Gait Assessment Gait Gait Assistance Required: Contact Guard Assist Distance (Feet) 12 Able to Maintain Weight Bearing Status Yes During Gait Assistive Devices Assistive Device Gait Belt,Front Wheeled Walker Orthotic/Prosthetic Devices or Brace: No Gait Deviations General Gait Pattern Antalgic,Decreased Stride Length,Decreased Feet Clearance,Flexed Trunk Factors Limiting Gait Function Factors Limiting Gait Function Decreased Activity Tolerance, Decreased Sensation,Decreased Strength,Pain,Poor Balance Comments Gait Comments Pt ambulated briefly in the room and was able to respond to min cues for posture correction. Pt had good attention to precautions during turns. Stair Climbing Assessment Comments Stair Climbing Comments Not assessed. PT-Balance Assessment Sitting Balance and Reactions Static Sitting Balance Ability Normal Dynamic Sitting Balance Ability Good Standing Balance and Reactions Static Standing Balance Ability Good Dynamic Standing Balance Ability Good Device Used FWW M5 PT-IP Objective Assessments Start: 12/09/19 08:28 Freq: NEEDED Status: Active Protocol: Document 12/09/19 10:50 AW (Rec: 12/09/19 11:09 AW [id number]) Orientation Orientation/Cognition Level of Alertness Alert Orientation Name,Day of Week,Place, Situation Language Function Ability No Deficits Noted Safety Awareness Understands Safety Issues Memory Description No Deficits Noted Gross Range of Motion Lower Extremity ROM Assessment Within Functional Limits Strength Lower Extremity Strength Assessment Bilaterally Impaired Hip 4/5 Knee 4/5 Ankle 4-/5 Coordination Assessment Gross Coordination Gross Coordination WNL Sensation Assessment Sensation Gross Sensation Right LE Impaired,Left LE Impaired Comments Sensation Comments Pt reports varying degrees of numbness to bilateral feet and left thigh. He states these symtoms are chronic and that his foot numbness is the result of remote trauma. Muscle Tone Muscle Tone WNL Yes M6 PT-IP Treatment Start: 12/09/19 08:28 Freq: NEEDED Status: Active Protocol: Document 12/09/19 10:50 AW (Rec: 12/09/19 11:09 AW [id number]) Physical Therapy Treatment Education Education Provided Precautions,Weight Bearing Status,Post-Op Packet,Safety Other Treatments Other Treatment Performed Provided education on role of PT, plan of care, post op precautions, and safe use of FWW. M7 PT-IP Assessment and Plan Start: 12/09/19 08:28 Freq: NEEDED Status: Active Protocol: Document 12/09/19 10:50 AW (Rec: 12/09/19 11:09 AW [id number]) PT Summary Assessment and Plan Potential Rehabilitation Potential Good Status of Condition at Evaluation Evolving Summary Impairments Pain,ROM,Strength,Balance, Sensation,Bed Mobility, Transfers,Gait,Activity Tolerance Assessment Summary Jose Roberto is a 69 yo man seen for PT evaluation on POD1 following L4-5 L5-S1 TLIF. He is independent with mobility at baseline. On evaluation, pt was able to verbalize and demonstrate good application of spinal precautions. He required mod assist with bed mobility and min assist with transfers. He managed 12 feet of ambulation with FWW CGA. Pt will benefit from continued acute PT to progress safe mobility. PT anticipates he will be safe for discharge to home once medically cleared. Goals Bed Mobility Goal Standby Assistance Transfer Goal Standby Assistance,Front Wheeled Walker Gait Goal Standby Assistance,Front Wheel Walker Gait Distance 200 Other Goals -up/down 2 steps with left rail ascending SBA Days to Meet Goals 3 Frequency of Treatment Frequency Of Treatment Twice a Day Treatment Plan Physical Therapy Treatment Plan Bed Mobility Training,Transfer Training,Gait Training, Therapeutic Exercise,Balance Retraining,Post Op Education, Discharge Planning,Hot or Cold Pack,Neuromuscular Re-ed Recommendations To Nursing Amount of Assist Needed 1 Person Assist Discharge Recommendations PT Discharge Recommendations Home with Assistance Transportation Needs at Discharge Private Vehicle
--- NOTE | 2019-12-09 12:39 | CM.DANOTE ---
DCP Bre[place] Assessment: EMR reviewed: Patient is a 72 yr old male who was admitted for multiple level lumbar fusion surgery preformed by Dr MCLEOD. Patients PCP is Dr. Gallegos. CM/RN attempted to meet with patient but he was asleep at time of visit. patient currently lives in a single level home with one step to get into the home. Patient has FWW and cane at home along with hand machine umbrella tipper and elevated toilet seat. Patient Is Independent at baseline with all ADL's and drives. PT evaluation done and recommends patient home with assistance. Patient will be at home with him to provide assistance. I: [employer] and self pay Plan: D/C home with when medically stable. No identified d/c palnning needs noted at this time. Cm department will follow to help with any d/c planning needs that may arise. Maria Luisa Barger RN Discharge Planning/Care Management Advanced directive, confirm from FAMILY Start: 12/08/19 14:48 Freq: Q24H Status: Active Protocol: Document 12/08/19 18:12 AKP (Rec: 12/08/19 18:12 AKP [id number]) Advance Directive, confirm on record Time 18:12 Person contacted pt Copy received No CM Discharge Assessment Start: 12/09/19 12:37 Freq: Status: Active Protocol: Document 12/09/19 12:37 HS (Rec: 12/09/19 12:39 HS [id number]) Discharge Planning Assessment Assigned Search Engine Optimizer Maria Luisa Barger RN DPOA/Assigned Designee Name Siria Saleem () Contact Information [phone] Advance Directives? Yes Advance Directives on File Yes History Provided By Patient,Medical Record Prior Living Arrangements House Household Members spouse Type of transporation used prior to Drives own vehicle admit Independent with ADL's Yes Is patient alert and oriented? Yes Caregiver for Another No DME Already Rented / Owned Elevated Toilet Seat,FWW / Walker,Cane Patient/Family Preference OP PT Therapy Discharge Plan Home Referrals Initiated None needed Whiteboard Updated in Patient Room with Yes name and ext. # of Search Engine Optimizer Review Status In Process Next Review Type Continued Stay Review Pre-Anesthesia Assessment Start: 12/02/19 13:54 Freq: Status: Complete Protocol: Document 12/02/19 13:54 CAB (Rec: 12/02/19 14:34 CAB [id number]) Pre-Anesthesia Assessment Preferred Name Jose Roberto Patient Information Reviewed Via Phone Assessment Assessment Completed With Patient Diagnostic Results BMP/CMP,CBC,EKG,Other Comment Labs/EKG @ 11/29/19 - COVID screen-pt will call to schedule Primary Care Provider Alejandro Gallegos Seen Specialist in Last 12 Months Yes Specialist Seen Orthopedist Primary Language Lithuanian Medical Terminologist Required No Height 185.42 cm Weight 120.656 kg Body Mass Index (BMI) 35.1 Hearing Ability Normal Visual Assist Glasses Dentition Type Teeth, Natural Present,Dental Implants Barriers to Learning None Hx Anesthesia Reactions No: Hypotension s/p RT TKA Hx Family Anesthesia Reaction No Hx Malignant Hyperthermia No Hx Blood Transfusions No Anesthesia Review Requested No alcohol intake current alcohol intake frequency a few times a month Smoking Status Never smoker Substance Use Type marijuana Comment Advised not to smoke 24 hours prior to surgery Pain Present Pain Reported Musculoskeletal Symptoms Abnormal Gait,Back Pain, Difficulty Walking,Numbness, Radiating Pain into Limb, Tingling History of Falling (Recent or History of No ) Patient is completely paralyzed or No completely immobile Mental Status Oriented to own ability Is patient on oxygen? No Does patient have SAINZ/SOB No Hx Sleep Apnea No Currently Taking a Beta Kacie No Can You Climb a Flight of Stairs Without Yes SOB Hx Chest Pain No Hx SOB No Hx Syncope or Dizziness No Anti-Coagulant Therapy No Has a Steel Fitter No Cardiac Testing No Hx Pacemaker/ICD No Pacemaker Rep Required? No Cardiac Clearance Received Not Applicable Diet Type At Home Regular dysphagia No Gastrointestinal Symptoms Reflux Comment Recent increase in acid reflux , waking pt up at night Bladder Pattern Incontinent Urinary Catheter Present No Hx Urinary Self Catheterization No Diabetes No Hx Drug Resistant Organism No Presence of External or Internal Medical Yes: Rt knee prosthesis, tooth Devices implant Have you had any close contact with Yes: and patient positive someone diagnosed with COVID-19? symptoms 07/2019, not tested Evaluation/Screening for possible COVID- Yes 19 infection completed? Comment was exposed to choir group COVID positive, no current symptoms Marital Status Lives With spouse Prior Living Arrangements House Number of Floors (Floors) One Floor Support System Spouse Does the Patient Have Assistance After Yes Surgery Patient Discharge Plan Description Return Home Comment Pt advised 2 day length of stay per surgeon Feels Safe in Current Environment Yes Been Physically Hurt or Threatened By a No Person in Current Environment Do you have thoughts of harming yourself None or others? Are you currently considering suicide? No Do you have a plan to hurt yourself or No Plan others? Do You Have Any Spiritual Beliefs That No May Affect Your HC Choices? Do You Have Any Cultural Practices That No May Affect Your HC Choices? Who Can We Speak to About Patient's Care Family, friends Identifying Code for Release of Patient Declines to issue Information Health Care Proxy/Next of Kin Siria () Health Care Proxy Emergency Contact Name Siria () Emergency Contact Advance Directives? Yes Advance Directives on File Yes Power of Contact Lens Blocker Yes Power of Contact Lens Blocker Name Siria () Power of Contact Lens Blocker PAC Instructions Durable medical equipment, Medications to take/avoid, Nasal antibiotic,No ETOH/ petroleum product on skin DOS, NPO,Pre-surgical wash,Sturdy shoes/comfortable clothes,Do not bring valuables and remove jewelry
--- NOTE | 2019-12-09 12:59 | P.PN_ITS ---
Exam Vital Signs (past 8 hours): - 12/09/19 07:26 Temperature 96.7 F L Pulse Rate 92 H Respiratory Rate 16 Blood Pressure 122/83 Pulse Oximetry 100 Oxygen Delivery Method BiPAP Oxygen Flow Rate 2 Objective Labs Result Diagrams: 12/09/19 06:14 Labs: Laboratory Results - last 24 hr 12/09/19 06:14 Hgb 13.0 L Hct 37.9 L Assessment & Plan Assessment & Plan narrative: POD#1 s/p 2 level TLIF. Mobilizing well with PT. Will need additional mobility training and another day in the hospital before going home. Dressing clean and dry. Neuro intact on exam. No s/s of DVT. Patient respond better to [place] than oxycodone, will plan to d/c with [place]. Quality VTE Deep Vein Thrombosis/Pulmonary Embolism Present on Admission: No
--- NOTE | 2019-12-09 14:04 | PT.IPTN ---
Current Diagnoses Spinal stenosis, lumbar region without neurogenic claudication (12/08/19) Postlaminectomy syndrome, not elsewhere classified (12/08/19) Surgery Performed Operation Date: 12/08/19 08:45 Actual Procedures p L4-5,L5-S1 TLIF w/posterior instrumentation - Juliet Barnes MD Physical Therapy Treatment Note M2 PT-IP Current Condition Start: 12/09/19 08:28 Freq: NEEDED Status: Active Protocol: Document 12/09/19 10:50 AW (Rec: 12/09/19 11:09 AW [id number]) Physical Therapy Current Condition Current Condition Evaluation Date 12/09/19 Treatment Diagnosis s/p L4-5 L5-S1 TLIF; difficulty in walking Onset Date 12/08/19 Precautions Lumbar Precautions Log Roll,No Twisting,Limit Bending,Lifting Restriction of 10 lbs,Gait Belt above Incisional Area M3 PT-IP Subjective Start: 12/09/19 08:28 Freq: NEEDED Status: Active Protocol: Document 12/09/19 13:51 AW (Rec: 12/09/19 14:04 AW [id number]) Subjective Physical Therapy Visit Type Type Treatment Note Visit Start Time 13:22 Visit Stop Time 13:49 Total Visit Minutes 27 Notes Co-tx with OT Physical Therapy Visit Comments Patient Comments Pt is willing to work with PT Therapy Pain Assessment Pain When Pain Assessed During Mobility Pain Present Pain Present Pain Reported Location back Intensity 5 Pain Management Techniques Apply Cold,Timing of Activity with Medications M4 PT-IP Mobility and Gait Start: 12/09/19 08:28 Freq: NEEDED Status: Active Protocol: Document 12/09/19 13:51 AW (Rec: 12/09/19 14:04 AW [id number]) PT-Bed Mobility Assessment Rolling Type of Rolling Log Rolling,Roll to Left Level of Assist Contact Guard Assistance,1 Person Assistance Supine to Sit Supine to Sit Moderate Assistance,1 Person Assistance,Bedrails Scooting Scooting to Edge of Bed Standby Assistance PT-Transfer Assessment Sit to and From Stand Sit to and from Stand Minimal Assistance,1 Person Assistance,Use of Upper Extremities Equipment Transfer Assistive Device Gait Belt,Front Wheeled Walker Orthotic/Prosthetic Devices or Brace: No Transfers Transfer Destination Chair Transfer Technique pt ambulated with FWW Transfer Ability Level of Assist Contact Guard Assistance,1 Person Assistance,Use of Upper Extremities Comments Mobility Comments Pt was reclined in the bed when therapy arrived. He completed log roll to his left side CGA and then sidelying to sit transition min A x 1 with assist at the shoulder girdle to right his trunk. Pt used bed rail to assist with bed mobility. Plan to trial cane for bed mobility at next visit. Pt sat EOB to don house shoes using long handled shoe horn with OT assist. He then stood min A x 1 and ambulated to the sink CGA. Pt left the walker on his right side as he faced the mirror for grooming . PT and OT cued the pt to keep the walker in front of him in the turn and during tasks. Pt then ambulated in the halls 250' SBA/CGA without rest break. He verbalized his movement strategies before executing them, indicating good safety awareness. Pt returned to the room and transferred to the chair CGA and cues to use both hands on the chair arms to slow descent and avoid twisting movement. Pt was left with OT for further assessment. Gait Assessment Gait Gait Assistance Required: Standby Assistance,Contact Guard Assist Distance (Feet) 250 Able to Maintain Weight Bearing Status Yes During Gait Assistive Devices Assistive Device Gait Belt,Front Wheeled Walker Orthotic/Prosthetic Devices or Brace: No Gait Deviations General Gait Pattern Antalgic,Decreased Stride Length,Decreased Feet Clearance,Flexed Trunk Factors Limiting Gait Function Factors Limiting Gait Function Decreased Activity Tolerance, Decreased Sensation,Decreased Strength,Pain,Poor Balance Comments Gait Comments It feels like I'm loosening up. Pt responded well to cues for scapular retraction and glute engagement for walking posture. Stair Climbing Assessment Comments Stair Climbing Comments Not assessed. PT-Balance Assessment Sitting Balance and Reactions Static Sitting Balance Ability Normal Dynamic Sitting Balance Ability Good Standing Balance and Reactions Static Standing Balance Ability Good Dynamic Standing Balance Ability Good Device Used FWW M5 PT-IP Objective Assessments Start: 12/09/19 08:28 Freq: NEEDED Status: Active Protocol: Document 12/09/19 10:50 AW (Rec: 12/09/19 11:09 AW [id number]) Orientation Orientation/Cognition Level of Alertness Alert Orientation Name,Day of Week,Place, Situation Language Function Ability No Deficits Noted Safety Awareness Understands Safety Issues Memory Description No Deficits Noted Gross Range of Motion Lower Extremity ROM Assessment Within Functional Limits Strength Lower Extremity Strength Assessment Bilaterally Impaired Hip 4/5 Knee 4/5 Ankle 4-/5 Coordination Assessment Gross Coordination Gross Coordination WNL Sensation Assessment Sensation Gross Sensation Right LE Impaired,Left LE Impaired Comments Sensation Comments Pt reports varying degrees of numbness to bilateral feet and left thigh. He states these symtoms are chronic and that his foot numbness is the result of remote trauma. Muscle Tone Muscle Tone WNL Yes M6 PT-IP Treatment Start: 12/09/19 08:28 Freq: NEEDED Status: Active Protocol: Document 12/09/19 13:51 AW (Rec: 12/09/19 14:04 AW [id number]) Physical Therapy Treatment Education Education Provided Precautions,Safety Other Treatments Other Treatment Performed Continued to reinforce back precautions and movement strategies to promote safe mobility. M7 PT-IP Assessment and Plan Start: 12/09/19 08:28 Freq: NEEDED Status: Active Protocol: Document 12/09/19 13:51 AW (Rec: 12/09/19 14:04 AW [id number]) PT Summary Assessment and Plan Potential Rehabilitation Potential Good Status of Condition at Evaluation Stable Summary Impairments Pain,ROM,Strength,Balance, Sensation,Bed Mobility, Transfers,Gait,Activity Tolerance Progress Towards Goals Progressing Toward Goals,Slow Progress due to Pain Assessment Summary Pt with improved pain control this PM was able to progress gait distance safely with minimal cueing for posture with FWW. He does a good job of verbalizing his movement strategies, demonstrating thoughtfulness about his precautions. Pt will likely be appropriate for discharge to home with assist and with outpatient PT once medically cleared. Goals Bed Mobility Goal Standby Assistance Transfer Goal Standby Assistance,Front Wheeled Walker Gait Goal Standby Assistance,Front Wheel Walker Gait Distance 200 Other Goals -up/down 2 steps with left rail ascending SBA Days to Meet Goals 2 Frequency of Treatment Frequency Of Treatment Twice a Day Treatment Plan Physical Therapy Treatment Plan Bed Mobility Training,Transfer Training,Gait Training, Therapeutic Exercise,Balance Retraining,Post Op Education, Discharge Planning,Hot or Cold Pack,Neuromuscular Re-ed Other Recommendations and Next Treatment bed mobility with cane; Focus continue gait training with FWW; assess safety on stairs when able Recommendations To Nursing Amount of Assist Needed 1 Person Assist Discharge Recommendations PT Discharge Recommendations Home with Assistance, Outpatient PT Transportation Needs at Discharge Private Vehicle
--- NOTE | 2019-12-09 14:10 | OT.IP.EVAL ---
Current Diagnoses Spinal stenosis, lumbar region without neurogenic claudication (12/08/19) Postlaminectomy syndrome, not elsewhere classified (12/08/19) Surgery Performed Operation Date: 12/08/19 08:45 Actual Procedures p L4-5,L5-S1 TLIF w/posterior instrumentation - Juliet Barnes MD Past Medical History (Last Updated 12/02/19 @ 14:34 by Amaris Montez RN) Anxiety (Acute) Exposure to COVID-19 virus (Acute ~07/2019) GERD (gastroesophageal reflux disease) (Acute) HTN (hypertension) (Acute) Kidney stones (Acute) PVC's (premature ventricular contractions) (Acute) RBBB (right bundle branch block) (Acute) Surgical History (Last Updated 12/02/19 @ 13:59 by Amaris Montez RN) History of arthroplasty of right knee (Acute 01/23/15) History of vasectomy (Acute 1989) Hx of appendectomy (Acute) Hx of eye surgery (Acute) Hx of foot surgery (Acute 1984) Hx of laminectomy (Acute ~1989) Hx of lithotripsy (Acute) Occupational Therapy Inpatient Evaluation/Re-Eval M1 PT/OT-IP Prior Functional Status Start: 12/09/19 14:10 Freq: NEEDED Status: Active Protocol: Document 12/09/19 14:14 [facility] (Rec: 12/09/19 14:31 [facility] [id number]) Medical Review Prior Functional Status Medical History Reviewed Yes Communication WNL. Pt is an effective verbal communicator. Mobility and Gait Pt is mod IND with SPC. He is able to walk ~45 minutes with the cane. Activities of Daily Living and IADL's Pt uses a homemade sock aid, use of two pliers to jailene his left sock but is otherwise independent with ADL's. 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 Independent with his medications and pills. Social History Household Members spouse Living Arrangements House Number of Floors (Floors) One Floor Number of Stairs To Enter/Railing? 1 low step to enter through the back door. 2 steps with left-sided railing at the front entrance. Pt has 27 high bed and tends to use his cane to assist with sidel jarett to sit transition after log roll. Home Environment High Toilet,Walk in Shower Home Equipment Straight Cane,Grab Bars Near Toilet Additional Social History Comment Pt lives with his , Siria, who has a flexible work schedule and will be able to provide assist as needed. Pt and his spend 2 days each - separately - on their boat. Pt does not plan to go to the boat during his first few weeks after surgery. M2 OT-IP Current Condition Start: 12/09/19 14:10 Freq: Status: Active Protocol: Document 12/09/19 14:14 [facility] (Rec: 12/09/19 14:31 [facility] [id number]) Occupational Therapy Current Condition Current Condition Evaluation Date 12/09/19 Treatment Diagnosis Spinal Stenosis with radiculopathy s/p L4-5, L5-S1 TLIF Diagnosis Onset Date 12/08/19 Post Operative Precautions Lumbar Precautions Log Roll,No Twisting,Limit Bending,Lifting Restriction of 10 lbs,Gait Belt above Incisional Area M3 OT- IP Subjective and Pain Start: 12/09/19 14:10 Freq: Status: Active Protocol: Document 12/09/19 14:14 [facility] (Rec: 12/09/19 14:31 [facility] [id number]) OT- Subjective Occupational Therapy Visit Type Type Initial Evaluation Visit Start Time 13:26 Visit Stop Time 14:10 Total Visit Minutes 44 Occupational Therapy Visit Comments Patient Comments Pt working with PT as OT came in the room to see pt. Patient/Caregiver Goals To go home. OT Pain Assessment Pain When Pain Assessed During Mobility Pain Present Pain Present Pain Reported Location back Intensity 5 Scale Used Numeric (0 - 10) M4 OT- IP ADL's Start: 12/09/19 14:10 Freq: Status: Active Protocol: Document 12/09/19 14:14 [facility] (Rec: 12/09/19 14:31 [facility] [id number]) OT [id number] Comments OT Self-Feeding Comments NOt at meal time. OT ADL-Grooming General Evaluation Grooming Ability Standby Assistance Areas Needing Assistance Retrieving/Set-up of Grooming Items Comments OT Grooming Comments SBA with FWW, cues to keep fww in front on him. OT ADL-Oral Care Comments Oral Care Comments Educated to bend at hips or just spit into a cup to best follow back precautions. OT ADL-Dressing General Eval Lower Body Dressing Ability Maximum Assistance Areas Needing Assistance Socks,Shoes Comments OT Dressing Comments Able to educated pt on LB dressing equipment of bottle capping machine operator, sock aid, and long handled shoe horn and pt able to show good safety and use after practice and education. OT ADL-Toileting General Evaluation Toileting Ability Total Assistance Comments OT Toileting Comments Rodriguez in. Pt states has a tall toilet and prior able to lean over on the grab bar to the left and able to wipe appropriately. OT ADL-Bathing Comments OT Bathing Comments NOt at this time. Pt states has a walk in shower but will not accommodate a shower chair safely. To go over showering tomorrow with pt to see if he is able to stand the whole time. M5 OT- IP IADL's Start: 12/09/19 14:10 Freq: Status: Active Protocol: Document 12/09/19 14:14 [facility] (Rec: 12/09/19 14:31 [facility] [id number]) OT-Instrumental Activities of Daily Living Home Safety Awareness Awareness of Need for Assistance at Home Good Awareness Ability to Problem Solve Emergency Able to Problem Solve Situations Medication Management Medication Management Comments Pt states sets in own medications but open to to supervision as needed. Money Management Money Management No Deficits Identified Meal Preparation Meal Preparation Caregiver Provides Assist Subcontracts Manager Subcontracts Manager Caregiver Provides Assist Driving Driving Caregiver Provides Assist M6 OT- IP Functional Cognition Start: 12/09/19 14:10 Freq: Status: Active Protocol: Document 12/09/19 14:14 [facility] (Rec: 12/09/19 14:31 [facility] [id number]) Cognitive Factors Limiting Selfcare Function Cognitive Ability Level of Alertness Alert Patient Orientation Name,Place,Situation Attention Span Ability Capable of Focused Attention, Capable of Sustained Attention Ability to Follow Commands Able to Follow Multi-Step Commands Safety Awareness Underestimates Need for Assistance Cognitive Comments Cognitive Assessment Comments Pt needing reminders to incorporate back precautions for needs. OT- Vision and Hearing OT- Hearing Assessment OT- Hearing Assessment WFL OT- Vision Assessment Visual Acuity Glasses All The Time M7 OT- IP Mobility and Balance Start: 12/09/19 14:10 Freq: Status: Active Protocol: Document 12/09/19 14:14 [facility] (Rec: 12/09/19 14:31 [facility] [email or web address]) OT- Bed Mobility Assessment Supine to Sit Supine to Sit Assist Moderate Assistance,1 Person Assistance,Bedrails OT-Transfer Assessment Sit to and From Stand Sit to and from Stand Minimal Assistance,1 Person Assistance Transfers Transfer Ability Contact Guard Assistance,1 Person Assistance Comments Mobility Comments MODA mainly to help get from side lying to upright and SRIDEVI to stand to FWW. CGA while walking in the room with FWW. Pt's to look to get a FWW tomorrow and also come in for caregiver training tomorrow at 11am. OT- Gait Assessment Comments Gait Ability Comments CGA with FWW. OT- Balance Assessment Sitting Balance and Reactions Static Sitting Balance Ability Normal Dynamic Sitting Balance Ability Good Standing Balance and Reactions Static Standing Balance Ability Good Dynamic Standing Balance Ability Fair M8 OT- IP Objective Assessments Start: 12/09/19 14:10 Freq: Status: Active Protocol: Document 12/09/19 14:14 [facility] (Rec: 12/09/19 14:31 [facility] [email or web address]) OT Gross Range of Motion Upper Extremity Range of Motion Assessment Within Functional Limits OT Strength Upper Extremity Strength Assessment Within Functional Limits M9 OT- IP Assessment and Plan Start: 12/09/19 14:10 Freq: Status: Active Protocol: Document 12/09/19 14:14 [facility] (Rec: 12/09/19 14:31 [facility] [email or web address]) OT Summary Assessment and Plan Potential Rehabilitation Potential Excellent Analytic Complexity at Evaluation Low Summary OT Impairments Pain,Balance,Functional Mobility,Dressing,Toileting, Bathing,Toilet Transfers, Shower Transfers Progress Towards Goals Progressing Toward Goals Assessment Summary Pt low complexity after s/p L4 -5,L5-S1 TLIF and main barriers are bed mobility and needing MODA , steps, and will needing use of LB dressing equipment or assist from for ADl needs. Pt's to come tomorrow at 11am for caregiver training. Therefore suggest home with when medically stable. Goals Grooming Goal Independent Dressing Goal Independent Toileting Goal Independent Bathing Goal Standby Assistance Toilet Transfer Goal Independent Shower Transfer Goal Independent Patient/Caregiver Education Goal Demonstrate Post-Op Precautions,Caregiver Independent Assisting Patient Days to Meet Goals 2 Frequency of Treatment Frequency Of Treatment Once a Day Treatment Plan OT Treatment Plan ADL Training,Functional Mobility,Patient/Family Education,Discharge Planning Other Treatment Recommendations and Next Shower and caregiver training Treatment Focus . Discharge Recommendations OT Discharge Recommendations Home with Assistance Home Equipment Needs FWW, LB dressing equipment. Transportation Needs at Discharge Private Vehicle
[2019-12-09] MEDS: SIMVASTATIN 10 MG TABLET PO (16:54)
[2019-12-09] MEDS: HYDROCODONE/ACET 5/325 TABLET 1 TAB PO ×3 (16:54→23:42)
[2019-12-09] MEDS: LOSARTAN 25 MG TABLET PO (20:27)
[2019-12-09] MEDS: SODIUM CHLORIDE 0.9% FLUSH 10 ML IV (20:27)
[2019-12-09] MEDS: SENNOSIDES 8.6 MG TABLET 17.2 MG PO (20:28)
[2019-12-10 03:04] VITALS: BP 139/81; PULSE 83; RESP 16; TEMP 36.2; O2SAT 98
[2019-12-10] MEDS: PANTOPRAZOLE 20 MG TABLET PO (05:53)
[2019-12-10 07:17] VITALS: BP 133/90; PULSE 87; RESP 16; TEMP 35.8; O2SAT 98
--- NOTE | 2019-12-10 07:23 | P.DS_ITS ---
History of Present Illness History of Present Illness Date Patient Seen: 12/10/19 Time Patient Seen: 07:23 Chief complaint: *OPB* [id number] Narrative: Postop day 2 to level T left L4-L5-L5-S1 with Dr. Barnes. Doing better today. Pain better controlled on [place]. Was up with physical therapy yesterday. Still has Rodriguez in place. Does state passed gas this morning. Denies fevers or chills. Plan is home later today after therapy Discharge Providers Provider Date of admission: 12/09/19 10:39 Discharge Date: 12/10/19 Primary care physician: Alejandro Gallegos MD Consults: 12/08/19 14:32 Consult to Occupational Therapy Evaluate & Treat Comment: Physician Instructions: Evaluate and treat Consult to Physical Therapy Evaluate & Treat Comment: Physician Instructions: Evaluate and Treat Discharge provider: Jania Knowles MD Summary Hospital Course Discharge Diagnosis: Lumbar spinal stenosis Hospital Course: Patient was admitted to the hospital after surgery with Dr. Barnes. On postop day 1 pain was poorly controlled pain medications were switched to [place] which he responded much better to. He worked with physical therapy. On postop day 2 appropriate for discharge with pain control and mobilization with physical therapy. Tolerating p.o. diet Status at Discharge Cognitive/behavioral status at discharge: oriented Functional status at discharge: uses cane/walker Overall status at discharge: patient is progressing back to baseline Time Spent with Patient Time spent: Less than 30 minutes Exam Vital Signs (past 8 hours): - 12/09/19 23:40 12/10/19 03:04 Temperature 96.9 F L 97.1 F L Pulse Rate 86 83 Respiratory Rate 20 16 Blood Pressure 131/81 139/81 Pulse Oximetry 99 98 Oxygen Delivery Method Room Air Oxygen Flow Rate 0 Narrative Exam Narrative: Alert oriented male no acute distress. Lying in bed Vital signs stable Back exam shows dressing intact. Tape was peeling right at the edge this was reinforced. No redness or erythema. Demonstrates knee flexion and extension. Good 5/5 dorsiflexion plantar flexion in the bilateral feet. Calves are soft. SCDs in place : Rodriguez in place Patient sources passing gas but no bowel movement yet Objective Labs Result Diagrams: 12/09/19 06:14 Discharge Plan Discharge Plan Patient Disposition: Home Discharge orders & Medications Prescriptions: New hydrocodone-acetaminophen 10-325 mg Tablet 1 tab PO Q4-5H PRN (Reason: Pain, Moderate (4-6)) Qty: 60 RF: 0 Continued multivitamin Capsule 1 cap PO DAILY Qty: 0 RF: 0 simvastatin 10 mg Tablet 10 mg PO QPM RF: 0 tramadol 50 mg Tablet 50 mg PO BEDTIME PRN (Reason: Pain) RF: 0 alprazolam 0.25 mg Tablet 0.25 mg PO TID PRN (Reason: Anxiety) RF: 0 losartan 25 mg Tablet 25 mg PO BEDTIME RF: 0 hydrochlorothiazide 12.5 mg Capsule 12.5 mg PO DAILY RF: 0 fluticasone propionate 50 mcg/actuation [place],Suspension 1 spray INTRANASAL DAILY RF: 0 aspirin 81 mg Tablet,Delayed Release (Dr/Ec) 81 mg PO DAILY RF: 0 loratadine [Claritin] 10 mg Tablet 10 mg PO DAILY RF: 0 omeprazole magnesium [Prilosec OTC] 20 mg Tablet,Delayed Release (Dr/Ec) 10 mg PO DAILY RF: 0 Discontinued naproxen sodium [Aleve] 220 mg Capsule 220 mg PO DAILY RF: 0 Follow up/Referrals: Juliet Barnes MD [Physician] - (10-14days ) Alejandro Gallegos MD [Primary Care Provider] - Diet/Activity/Treatments Diet: Diet as Tolerated and Regular Activity: Limit bending and twisting and lifting Skin/Wound/Dressing Care Report to your healthcare provider any signs of infection, such as:: chills, fever, night sweats, increased pain, unusual drainage and unusual redness Dressing: Keep dressing clean dry intact May shower with dressing covered starting tomorrow Visit Report/Discharge Packet Instructions: DI for Transforaminal Lumbar Interbody Fusion Stand Alone Forms: Surgery Discharge Discharge Data Primary Care Provider: Alejandro Gallegos Attending Provider: Akanksha Montanez Admit Date/Time: 12/09/19 10:39 Quality VTE Deep Vein Thrombosis/Pulmonary Embolism Present on Admission: No
[2019-12-10] MEDS: FLUTICASONE 120 SPRAY/16 GM SPRAY.SUSP NASAL (08:23)
[2019-12-10] MEDS: polyethylene glycoL 3350 17 GM POWD.PACK PO (08:27)
[2019-12-10] MEDS: LORATADINE 10 MG TABLET PO (08:31)
[2019-12-10] MEDS: MULTIVITAMIN 1 TABLET 1 TAB PO (08:31)
[2019-12-10] MEDS: hydroCHLOROthiazide 12.5 MG CAPSULE PO (08:31)
[2019-12-10] MEDS: DOCUSATE 100 MG CAPSULE PO (08:31)
[2019-12-10] MEDS: ASPIRIN EC 81 MG TABLET PO (08:31)
[2019-12-10] MEDS: HYDROCODONE/ACET 10/325 TABLET 1 TAB PO ×2 (08:31→13:01)
[2019-12-10] MEDS: NAPROXEN 250 MG TABLET PO (08:31)
[2019-12-10] MEDS: SODIUM CHLORIDE 0.9% FLUSH 10 ML IV (08:32)
[2019-12-10 10:55] VITALS: BP 122/81; PULSE 92; RESP 16; TEMP 36.5; O2SAT 96
--- NOTE | 2019-12-10 11:37 | PT.IPTN ---
Current Diagnoses Spinal stenosis, lumbar region without neurogenic claudication (12/09/19) Postlaminectomy syndrome, not elsewhere classified (12/09/19) Surgery Performed Operation Date: 12/08/19 08:45 Actual Procedures p L4-5,L5-S1 TLIF w/posterior instrumentation - Juliet Barnes MD Physical Therapy Treatment Note M2 PT-IP Current Condition Start: 12/09/19 08:28 Freq: NEEDED Status: Active Protocol: Document 12/09/19 10:50 AW (Rec: 12/09/19 11:09 AW [id number]) Physical Therapy Current Condition Current Condition Evaluation Date 12/09/19 Treatment Diagnosis s/p L4-5 L5-S1 TLIF; difficulty in walking Onset Date 12/08/19 Precautions Lumbar Precautions Log Roll,No Twisting,Limit Bending,Lifting Restriction of 10 lbs,Gait Belt above Incisional Area M3 PT-IP Subjective Start: 12/09/19 08:28 Freq: NEEDED Status: Active Protocol: Document 12/10/19 10:58 KS (Rec: 12/10/19 12:39 KS [id number]) Subjective Physical Therapy Visit Type Type Treatment Note Visit Start Time 10:58 Visit Stop Time 11:37 Total Visit Minutes 39 Number of STAGECRAFT PROFESSOR Visits 1 Physical Therapy Visit Comments Patient Comments Pt is willing to work with PT. Pts present for caregiver training. Patient Goals To go home after surgery with his assisting M4 PT-IP Mobility and Gait Start: 12/09/19 08:28 Freq: NEEDED Status: Active Protocol: Document 12/10/19 10:58 KS (Rec: 12/10/19 12:39 KS [id number]) PT-Bed Mobility Assessment Rolling Type of Rolling Log Rolling,Roll to Left Level of Assist Contact Guard Assistance,1 Person Assistance Supine to Sit Supine to Sit Minimal Assistance,1 Person Assistance,Bedrails Sit to Supine Sit to Supine Minimal Assistance,1 Person Assistance Scooting Scooting to Edge of Bed Standby Assistance PT-Transfer Assessment Sit to and From Stand Sit to and from Stand Contact Guard Assistance,1 Person Assistance,Use of Upper Extremities Equipment Transfer Assistive Device Gait Belt,Front Wheeled Walker Orthotic/Prosthetic Devices or Brace: No Transfers Transfer Destination Bed Transfer Technique pt ambulated with FWW Transfer Ability Level of Assist Contact Guard Assistance, Minimal Assistance,1 Person Assistance,Use of Upper Extremities Comments Mobility Comments Pt in bed upon arrival from therapy, able to recall 3/3 spinal precautions and present for caregiver training . Pt CGA for logroll to L and Min A for sidelying to sit, SBA for scooting to EOB, CGA for sit<>stand w/ FWW. Pt then ambulated ~200 ft to stairs and completed 1 platform step x4 w/ FWW and CGA. Pt then ambulated ~300 w/ FWW passing and then returning to room. pts provided CGA and cues during last 3 step repetitions and ambulation. Pt returned to room and performed sit<>sidelying Min A provided by for LE guidance and logroll CGA back into bed. Educated pt on core stabilization for protection of spine. Pt and state they feel safe to return home and left in room w/ OT. Gait Assessment Gait Gait Assistance Required: Standby Assistance,Contact Guard Assist Distance (Feet) 500 Able to Maintain Weight Bearing Status Yes During Gait Assistive Devices Assistive Device Gait Belt,Front Wheeled Walker Orthotic/Prosthetic Devices or Brace: No Gait Deviations General Gait Pattern Antalgic,Decreased Stride Length,Decreased Feet Clearance,Flexed Trunk Factors Limiting Gait Function Factors Limiting Gait Function Decreased Activity Tolerance, Decreased Sensation,Decreased Strength,Poor Balance Comments Gait Comments Pt ambulated ~500 total feet this AM w/ FWW and SBA to CGA and cues for upright posture provided by pts . Pt reports less pain when ambulating. Stair Climbing Assessment Evaluation Level of Assist On Stairs Contact Guard Assistance,1 Person Assistance Devices Stair Climbing Assistive Devices Front Wheel Walker Technique/Endurance Stair Climbing Direction Ascend and Descend Stair Climbing Technique Step to Step Number of Steps Climbed 1 Stair Climbing Set # Repetitions (reps) 4 Comments Stair Climbing Comments Pt ascended/descended platform step x4 w/ CGA and cues for sequencing. CGA/cues provided by STAGECRAFT PROFESSOR on first step and provided successfully by pts on 2-4th steps. Pt and state they feel safe to complete steps at home. PT-Balance Assessment Sitting Balance and Reactions Static Sitting Balance Ability Normal Dynamic Sitting Balance Ability Good Standing Balance and Reactions Static Standing Balance Ability Good Dynamic Standing Balance Ability Good Device Used FWW M5 PT-IP Objective Assessments Start: 12/09/19 08:28 Freq: NEEDED Status: Active Protocol: Document 12/09/19 10:50 AW (Rec: 12/09/19 11:09 AW [id number]) Orientation Orientation/Cognition Level of Alertness Alert Orientation Name,Day of Week,Place, Situation Language Function Ability No Deficits Noted Safety Awareness Understands Safety Issues Memory Description No Deficits Noted Gross Range of Motion Lower Extremity ROM Assessment Within Functional Limits Strength Lower Extremity Strength Assessment Bilaterally Impaired Hip 4/5 Knee 4/5 Ankle 4-/5 Coordination Assessment Gross Coordination Gross Coordination WNL Sensation Assessment Sensation Gross Sensation Right LE Impaired,Left LE Impaired Comments Sensation Comments Pt reports varying degrees of numbness to bilateral feet and left thigh. He states these symtoms are chronic and that his foot numbness is the result of remote trauma. Muscle Tone Muscle Tone WNL Yes M6 PT-IP Treatment Start: 12/09/19 08:28 Freq: NEEDED Status: Active Protocol: Document 12/10/19 10:58 KS (Rec: 12/10/19 12:39 KS [id number]) Physical Therapy Treatment Education Education Provided Precautions,Safety Other Treatments Other Treatment Performed Continued to reinforce back precautions and movement strategies to promote safe mobility. M7 PT-IP Assessment and Plan Start: 12/09/19 08:28 Freq: NEEDED Status: Active Protocol: Document 12/10/19 10:58 KS (Rec: 12/10/19 12:39 KS [id number]) PT Summary Assessment and Plan Potential Rehabilitation Potential Good Status of Condition at Evaluation Stable Summary Impairments Pain,ROM,Strength,Balance, Sensation,Bed Mobility, Transfers,Gait,Activity Tolerance Progress Towards Goals Progressing Toward Goals Assessment Summary Completed caregiver training w / pt and pts today who was able to correctly apply gait belt and provided appropriate assist for bed mobility, transfers, ambulation and stair traning. Pt Min A for sidelying to sit to sidelying for LE guidance into bed, CGA for sit<>stand, ambulation, and stairs. Pt ambulated ~500 ft w/ FWW and CGA provided by and demonstrated proper use of FWW . Educated pt on core stabilization for protection of back. Pt would benefit from outpatient rehab to improve core strength/stability and spinal mobility when appropriate. Goals Bed Mobility Goal Standby Assistance Transfer Goal Standby Assistance,Front Wheeled Walker Gait Goal Standby Assistance,Front Wheel Walker Gait Distance 200 Other Goals -up/down 2 steps with left rail ascending SBA Days to Meet Goals 2 Frequency of Treatment Frequency Of Treatment Twice a Day Treatment Plan Physical Therapy Treatment Plan Bed Mobility Training,Transfer Training,Gait Training, Therapeutic Exercise,Balance Retraining,Post Op Education, Discharge Planning,Hot or Cold Pack,Neuromuscular Re-ed Other Recommendations and Next Treatment bed mobility with cane; Focus continue gait training with FWW; assess safety on stairs when able Recommendations To Nursing Amount of Assist Needed 1 Person Assist Discharge Recommendations PT Discharge Recommendations Home with Assistance, Outpatient PT Transportation Needs at Discharge Private Vehicle
--- NOTE | 2019-12-10 12:24 | OT.IP.TRT ---
Current Diagnoses Spinal stenosis, lumbar region without neurogenic claudication (12/09/19) Postlaminectomy syndrome, not elsewhere classified (12/09/19) Surgery Performed Operation Date: 12/08/19 08:45 Actual Procedures p L4-5,L5-S1 TLIF w/posterior instrumentation - Juliet Barnes MD Occupational Therapy Treatment Note M2 OT-IP Current Condition Start: 12/09/19 14:10 Freq: Status: Active Protocol: Document 12/09/19 14:14 [facility] (Rec: 12/09/19 14:31 [facility] [id number]) Occupational Therapy Current Condition Current Condition Evaluation Date 12/09/19 Treatment Diagnosis Spinal Stenosis with radiculopathy s/p L4-5, L5-S1 TLIF Diagnosis Onset Date 12/08/19 Post Operative Precautions Lumbar Precautions Log Roll,No Twisting,Limit Bending,Lifting Restriction of 10 lbs,Gait Belt above Incisional Area M3 OT- IP Subjective and Pain Start: 12/09/19 14:10 Freq: Status: Active Protocol: Document 12/10/19 12:54 [facility] (Rec: 12/10/19 13:03 [facility] [id number]) OT- Subjective Occupational Therapy Visit Type Type Treatment Note Visit Start Time 11:40 Visit Stop Time 12:24 Total Visit Minutes 44 Occupational Therapy Visit Comments Patient Comments Pt's present for caregiver training. Patient/Caregiver Goals To go home. OT Pain Assessment Pain When Pain Assessed During Mobility Pain Present Pain Present Pain Reported Location back Intensity 3 Scale Used Numeric (0 - 10) M4 OT- IP ADL's Start: 12/09/19 14:10 Freq: Status: Active Protocol: Document 12/10/19 12:54 [facility] (Rec: 12/10/19 13:03 [facility] [id number]) OT ADL-Dressing General Eval Upper Body Dressing Ability Independent Lower Body Dressing Ability Minimal Assistance Areas Needing Assistance Shoes Assistive Devices Dressing Assistive Devices Shovel Loader Operator,Sock Aid Comments OT Dressing Comments Pt able to use sock aid and insurance professional to be able to do LB dressing needs and mainly needing assist to pull velcro strap to the his shoes at this time. Pt's states will assist him at home. OT ADL-Bathing Bathing Type Bathing Type Shower General Evaluation Bathing Ability Minimal Assistance Areas Needing Assistance Wash/Dry Back Devices Bathing Equipment Grab Bars Comments OT Bathing Comments Able to stimulate stepping into shower stall at home via holding to the wall with one hand and on the FWW for the other in addition to being there to assist and hold FWW in place. Pt states unable to use FWW to get into the shower as the guy is too soft. Pt able to stand for the whole shower however does use the grab bars for balance. Pt states has places in the shower to hold to and to be present. M5 OT- IP IADL's Start: 12/09/19 14:10 Freq: Status: Active Protocol: Document 12/09/19 14:14 [facility] (Rec: 12/09/19 14:31 [facility] [id number]) OT-Instrumental Activities of Daily Living Home Safety Awareness Awareness of Need for Assistance at Home Good Awareness Ability to Problem Solve Emergency Able to Problem Solve Situations Medication Management Medication Management Comments Pt states sets in own medications but open to to supervision as needed. Money Management Money Management No Deficits Identified Meal Preparation Meal Preparation Caregiver Provides Assist Exercise Physiologist Certified Exercise Physiologist Certified Caregiver Provides Assist Driving Driving Caregiver Provides Assist M6 OT- IP Functional Cognition Start: 12/09/19 14:10 Freq: Status: Active Protocol: Document 12/10/19 12:54 [facility] (Rec: 12/10/19 13:03 [facility] [id number]) Cognitive Factors Limiting Selfcare Function Cognitive Ability Level of Alertness Alert Patient Orientation Name,Place,Situation Attention Span Ability Capable of Focused Attention, Capable of Sustained Attention Ability to Follow Commands Able to Follow Multi-Step Commands Safety Awareness Underestimates Need for Assistance Cognitive Comments Cognitive Assessment Comments pt trying to stand and take his socks off while standing and needing cues would be best to sit to take his socks off first. M7 OT- IP Mobility and Balance Start: 12/09/19 14:10 Freq: Status: Active Protocol: Document 12/10/19 12:54 [facility] (Rec: 12/10/19 13:03 [facility] [id number]) OT- Bed Mobility Assessment Supine to Sit Supine to Sit Assist Standby Assistance OT-Transfer Assessment Sit to and From Stand Sit to and from Stand Contact Guard Assistance, Minimal Assistance Transfers Transfer Ability Standby Assistance,Contact Guard Assistance Technique Transfer Destination Bed,Chair,Shower Stall Devices Transfer Assistive Devices Gait Belt,Front Wheeled Walker Comments Mobility Comments Pt 's educated how to jailene/doff the gait belt and how to assist pt as needed especially when coming to stand from lower surfaces. Pt needing cues to be sure to hip hinge as he comes to stand and when coming down to sit. Pt has taller furniture at home which will make the transfer easier for the pt. OT- Gait Assessment Comments Gait Ability Comments SBA with FWW OT- Balance Assessment Sitting Balance and Reactions Static Sitting Balance Ability Normal Dynamic Sitting Balance Ability Good Standing Balance and Reactions Static Standing Balance Ability Good Dynamic Standing Balance Ability Fair M8 OT- IP Objective Assessments Start: 12/09/19 14:10 Freq: Status: Active Protocol: Document 12/09/19 14:14 [facility] (Rec: 12/09/19 14:31 [facility] [id number]) OT Gross Range of Motion Upper Extremity Range of Motion Assessment Within Functional Limits OT Strength Upper Extremity Strength Assessment Within Functional Limits M9 OT- IP Assessment and Plan Start: 12/09/19 14:10 Freq: Status: Active Protocol: Document 12/10/19 12:54 [facility] (Rec: 12/10/19 13:03 [facility] [id number]) OT Summary Assessment and Plan Potential Rehabilitation Potential Excellent Analytic Complexity at Evaluation Low Summary OT Impairments Pain,Balance,Functional Mobility,Bathing,Shower Transfers Progress Towards Goals Progressing Toward Goals Assessment Summary Pt's for caregiver training and able to educate her on how to jailene/doff gait belt , how to give assist to stand and transfers as needed , and assist for showering and dressing needs. Pt looking to go home today, LB dressing equipment issued. Discharge Recommendations OT Discharge Recommendations Home with Assistance Transportation Needs at Discharge Private Vehicle
--- NOTE | 2019-12-10 13:20 | PC.NURSE ---
Day shift: Pt left unit via WC with float RN at approx 1315. Taken to car driven by Pts spouse. Headed home to [place]. Medicated for pain for the ride. Paperwork signed and all questions answered. Dressing changed to [place]. Op-site w/ no s/s of infection, well approximated and roseline intact. Pt has all personal belongings as well as MD script.
== END 2019-12-10 13:22 | disposition home or self-care (01) ==
LOC: OR 16:31 → AC 16:31
PROVIDERS: Admitting Provider Orthopaedic Surgery Orthopaedic Surgery of the Spine; PCP Internal Medicine; Referring Provider Orthopaedic Surgery Orthopaedic Surgery of the Spine; Visit Provider Physician Assistant Surgical
PROC: (CPT 22633; principal; 2019-12-08 08:45)
DX: M96.1 Postlaminectomy syndrome, not elsewhere classified (principal); M48.061 Spinal stenosis, lumbar region without neurogenic claudication; M47.816 Spondylosis without myelopathy or radiculopathy, lumbar region; F41.9 Anxiety disorder, unspecified; I10 Essential (primary) hypertension; K21.9 Gastro-esophageal reflux disease without esophagitis
CPT/HCPCS: 22633; 22853 ×2; 63048; 22842; 22634; 20939; 63047; 36415; 36592; 72100; 76000; 85014; 85018; 97116; 97161; 97165; 97530; 97535; C1776; G0378; C9290; J0330; J0690; J1100; J1170; J2405; J2704; J3010

== ENCOUNTER 2020-03-26 11:09 | Emergency (ER) | payer MEDICARE, SELFPAY ==
[2019-12-08 14:40] VITALS: BMI 34.2
[2020-03-26 11:15] VITALS: BP 158/96; PULSE 92; RESP 18; TEMP 37.2; O2SAT 97; BMI 33.7
[2020-03-26 11:21] VITALS: PULSE 95; RESP 20; O2SAT 97
[2020-03-26 11:30] VITALS: BP 135/91; PULSE 87; RESP 19; O2SAT 97
[2020-03-26 11:40] LABS: Add Manual Diff / Slide Review NO; Basophils Absolute Auto 0 /uL (0-100); Basophils Percent Auto 0.4 % (0-2); Eosinophils Absolute Auto 100 /uL (0-450); Eosinophils Percent Auto 2.1 % (2-4); Hematocrit 41.8 % (41-53); Hemoglobin 14.4 g/dL (13.5-17.5); Lymphocytes Absolute Auto 1000 /uL (1100-4500); Lymphocytes Percent Auto 14.8 % (25-40); Mean Corpuscular HGB Conc 34.3 % (30-36); Mean Corpuscular Hemoglobin 32.4 PG (26-34); Mean Corpuscular Volume 94.2 fL (80-100); Monocytes Absolute Auto 600 /uL (0-900); Monocytes Percent Auto 8.8 % (3-14); Neutrophils Absolute Auto 5000 /uL (1500-7000); Neutrophils Percent Auto 73.9 % (50-75); Platelet Count 195 X10^3/uL (150-400); Red Blood Cell Count 4.44 X10^6/uL (4.5-5.9); Red Cell Distribution Width 14.7 % (11.6-14.8); White Blood Cell Count 6.8 X10^3/uL (4.5-11.0)
[2020-03-26 11:49] LABS: Lactate (Lactic Acid) 1.8 mmol/L (0.7-2.1)
[2020-03-26 11:50] LABS: Alanine Aminotransferase 39 IU/L (<50); Albumin 4.4 g/dL (3.5-5.0); Albumin Globulin Ratio 1.3 (1.0-2.8); Alkaline Phosphatase 72 U/L (38-126); Aspartate Aminotransferase 33 IU/L (17-59); BUN Creatinine Ratio 21.3 (6-22); Bilirubin Total 0.6 mg/dL (0.2-1.3); Blood Urea Nitrogen 19 mg/dL (9-20); Calcium 9.8 mg/dL (8.4-10.2); Carbon Dioxide 26 mmol/L (22-32); Chloride 106 mmol/L (98-107); Estimated Glomerular Filt Rate > 60.0 mL/min (>60); Globulin 3.4 g/dL (1.7-4.1); Glucose 118 mg/dL (80-110); HEMOLYSIS < 15 (0-50); Sodium 139 mmol/L (137-145); Total Protein 7.8 g/dL (6.3-8.2)
--- NOTE | 2020-03-26 11:51 | ED_ITS ---
HPI - GI Bleed General Chief complaint: GI Bleed Stated complaint: blood in stool started Time Seen by Provider: 03/26/20 11:19 Source: patient Mode of arrival: Family Vehicle Limitations: no limitations History of Present Illness HPI Narrative: Patient is a 69-year-old male who presents with rectal bleeding on aspirin. He says he occasionally has some bright red blood in the mornings. He had some 4 days ago however it has progressively gotten more frequent and larger amounts. He said last night he had 2 episodes and then 2 more this morning. He says the last 1 the toilet bowl was full of blood. He denies any dizziness or lightheadedness. He states his 1st and last colonoscopy was in his 50s and he knows he is due for 1 again. Said it was not abnormal as far as he knows. Related Data Home Medications Medication Instructions Recorded Confirmed multivitamin 1 cap PO DAILY #0 07/31/07 12/02/19 alprazolam 0.25 mg PO TID PRN 12/02/19 12/08/19 aspirin 81 mg PO DAILY 12/02/19 12/08/19 fluticasone propionate 1 spray INTRANASAL DAILY 12/02/19 12/02/19 hydrochlorothiazide 12.5 mg PO DAILY 12/02/19 12/08/19 loratadine [Claritin] 10 mg PO DAILY 12/02/19 12/02/19 losartan 25 mg PO BEDTIME 12/02/19 12/08/19 omeprazole magnesium [Prilosec OTC] 10 mg PO DAILY 12/02/19 12/02/19 simvastatin 10 mg PO QPM 12/02/19 12/08/19 tramadol 50 mg PO BEDTIME PRN 12/02/19 12/02/19 Previous Rx's Medication Instructions Recorded hydrocodone-acetaminophen 1 tab PO Q4-5H PRN #60 tab 12/09/19 Allergies Allergy/AdvReac Type Severity Reaction Status Date / Time enoxaparin Allergy Severe Large band Verified 12/02/19 14:04 of erythema, rash around torso Review of Systems Review of Systems ROS Unobtainable: All systems reviewed & are unremarkable except as noted in HPI and below Constitutional Constitutional: Denies chills, Denies fever(s), Denies lethargy and Denies weakness Eyes Eyes: Denies change in vision, Denies eye discharge, Denies irritation and Denies loss of vision Cardiovascular Cardiovascular: Denies chest pain, Denies irregular heart rhythm, Denies lightheadedness, Denies palpitations, Denies dyspnea, Denies dyspnea on exertion and Denies orthopnea Respiratory Respiratory: Denies cough, Denies dyspnea, Denies dyspnea on exertion and Denies wheezing Gastrointestinal Gastrointestinal: Reports as per HPI Musculoskeletal Musculoskeletal: Denies back pain and Denies myalgias Integumentary/Breasts Skin/Breast: Denies pruritus, Denies erythema, Denies rash and Denies wounds Neurologic Neurologic: Denies loss of vision and Denies weakness Endocrine Endocrine: Denies palpitations Allergic/Immunologic Allergic/Immunologic: Denies wheezing Patient History Medical History Anxiety (Acute) Exposure to COVID-19 virus (Acute ~07/2019) GERD (gastroesophageal reflux disease) (Acute) HTN (hypertension) (Acute) Kidney stones (Acute) PVC's (premature ventricular contractions) (Acute) RBBB (right bundle branch block) (Acute) Surgical History History of arthroplasty of right knee (Acute 01/23/15) History of vasectomy (Acute 1989) Hx of appendectomy (Acute) Hx of eye surgery (Acute) Hx of foot surgery (Acute 1984) Hx of laminectomy (Acute ~1989) Hx of lithotripsy (Acute) Social History household members: spouse Smoking Status: Never smoker alcohol intake: current Smoking Status: Never smoker alcohol intake frequency: a few times a month Substance Use Type: marijuana Exam Initial Vital Signs Initial Vital Signs: Vital Signs Temperature 98.9 F 03/26/20 11:15 Pulse Rate 92 H 03/26/20 11:15 Respiratory Rate 18 03/26/20 11:15 Blood Pressure 158/96 H 03/26/20 11:15 Pulse Oximetry 97 03/26/20 11:15 GENERAL: Overweight well-appearing male and in no acute distress. HEENT: Head atraumatic,EOMI, pupils reactive, face symmetric, moist mucous membranes CARDIOVASCULAR: Regular rate and rhythm without murmurs, rubs or gallops. RESPIRATORY: Breath sounds equal bilaterally, no wheezes rales or rhonchi. ABDOMEN: Soft, nontender. Normoactive bowel sounds all 4 quadrants. No guarding or rebound. RECTAL: Trace sleep positive, no hemorrhoids EXTREMITIES: Normal range of motion, no clubbing or edema. Neurovascularly intact NEUROLOGICAL: Alert and oriented x4.Normal gait and speech. SKIN: Warm, dry, no laceration, no petechiae, no rashes or lesions. Course Orders Ordered: ED Orders 03/26/20 11:25 Complete Blood Count AUTO DIFF Stat Comprehensive Metabolic Panel Stat Lactate (Lactic Acid) Stat Partial Thromboplastin Time Stat Prothrombin Time INR Stat Type and Screen Stat Discontinued Medications Pantoprazole Sodium (Protonix) 40 mg IV NOW ONE Stop: 03/26/20 11: Last Admin: 03/26/20 12:10 Dose: 40 mg Documented by: HALLIE Vital Signs Vital signs: Vital Signs - 8 hr 03/26/20 11:15 03/26/20 11:21 03/26/20 11:30 Temperature 98.9 F Pulse Rate 92 H 95 H 87 Respiratory Rate 18 20 19 Blood Pressure 158/96 H 135/91 H Pulse Oximetry 97 97 97 03/26/20 12:00 03/26/20 12:30 03/26/20 13:20 Temperature Pulse Rate 81 81 82 Respiratory Rate 20 12 18 Blood Pressure 147/98 H 142/88 H 151/88 H Pulse Oximetry 98 97 96 MDM - GI Bleed Lab Data Attestation: I reviewed the patient's lab results. Result diagrams: 03/26/20 11:25 03/26/20 11:25 Labs: Lab Results 03/26/20 03/26/20 03/26/20 Range/Units 11:25 11:25 11:25 WBC 6.8 (4.5-11.0) X10^3/uL RBC 4.44 L (4.5-5.9) X10^6/uL Hgb 14.4 (13.5-17.5) g/dL Hct 41.8 (41-53) % MCV 94.2 (80-100) fL MCH 32.4 (26-34) PG MCHC 34.3 (30-36) % RDW 14.7 (11.6-14.8) % Plt Count 195 (150-400) X10^3/uL Neut % (Auto) 73.9 (50-75) % Lymph % (Auto) 14.8 L (25-40) % [place] % (Auto) 8.8 (3-14) % Eos % (Auto) 2.1 (2-4) % Baso % (Auto) 0.4 (0-2) % Neut # (Auto) 5000 (8889-9937) /uL Lymph # (Auto) 1000 L (6284-2848) /uL [place] # (Auto) 600 (0-900) /uL Eos # (Auto) 100 (0-450) /uL Baso # (Auto) 0 (0-100) /uL PT 12.2 (10.1-12.7) SECONDS INR 1.1 (0.9-1.3) APTT 30 (26.4-36.2) SECONDS Sodium 139 (137-145) mmol/L Potassium 4.0 (3.4-5.1) mmol/L Chloride 106 (98-107) mmol/L Carbon Dioxide 26 (22-32) mmol/L BUN 19 (9-20) mg/dL Creatinine 0.89 (0.66-1.25) mg/dL Estimated GFR > 60.0 (>60) mL/min BUN/Creatinine Ratio 21.3 (6-22) Glucose 118 H (80-110) mg/dL Lactate (0.7-2.1) mmol/L Calcium 9.8 (8.4-10.2) mg/dL Total Bilirubin 0.6 (0.2-1.3) mg/dL AST 33 (17-59) IU/L ALT 39 (<50) IU/L Alkaline Phosphatase 72 (38-126) U/L Total Protein 7.8 (6.3-8.2) g/dL Albumin 4.4 (3.5-5.0) g/dL Globulin 3.4 (1.7-4.1) g/dL Albumin/Globulin Ratio 1.3 (1.0-2.8) Blood Type Antibody Screen 03/26/20 03/26/20 Range/Units 11:25 11:25 WBC (4.5-11.0) X10^3/uL RBC (4.5-5.9) X10^6/uL Hgb (13.5-17.5) g/dL Hct (41-53) % MCV (80-100) fL MCH (26-34) PG MCHC (30-36) % RDW (11.6-14.8) % Plt Count (150-400) X10^3/uL Neut % (Auto) (50-75) % Lymph % (Auto) (25-40) % [place] % (Auto) (3-14) % Eos % (Auto) (2-4) % Baso % (Auto) (0-2) % Neut # (Auto) (0443-6473) /uL Lymph # (Auto) (5103-2374) /uL [place] # (Auto) (0-900) /uL Eos # (Auto) (0-450) /uL Baso # (Auto) (0-100) /uL PT (10.1-12.7) SECONDS INR (0.9-1.3) APTT (26.4-36.2) SECONDS Sodium (137-145) mmol/L Potassium (3.4-5.1) mmol/L Chloride (98-107) mmol/L Carbon Dioxide (22-32) mmol/L BUN (9-20) mg/dL Creatinine (0.66-1.25) mg/dL Estimated GFR (>60) mL/min BUN/Creatinine Ratio (6-22) Glucose (80-110) mg/dL Lactate 1.8 (0.7-2.1) mmol/L Calcium (8.4-10.2) mg/dL Total Bilirubin (0.2-1.3) mg/dL AST (17-59) IU/L ALT (<50) IU/L Alkaline Phosphatase (38-126) U/L Total Protein (6.3-8.2) g/dL Albumin (3.5-5.0) g/dL Globulin (1.7-4.1) g/dL Albumin/Globulin Ratio (1.0-2.8) Blood Type A Positive Antibody Screen Negative MDM Narrative Medical decision making narrative: Patient's CBC is surprisingly in normal. He remains hemodynamically stable in the ED. However he reports increasing larger episodes of bleeding. He has no gross blood on exam. 1:00 p.m. discussed case with , hospitalist at this time stable. Recommend outpatient follow-up Patient got up to use the restroom was a very trace amount of blood is much smaller than what has been previously. He returned to his room is placed back on the monitor in was in [facility]. He says he does have a history of his heart ?skipping a beat.? After waiting PVCs spaced out no longer in [facility] but sti ll relatively frequent Discharge Plan Departure Patient Disposition: Home Clinical Impression: Rectal bleed Instructions: DI for Rectal Bleeding Activity Restrictions/Additional Instructions: *You have been diagnosed with rectal bleeding *What to do: At this time recommend monitoring closely. Anticipate bleeding should decrease and taper off. You will need a colonoscopy. Please talk to yo primary care provider about scheduling this as an outpatient *Continue to take medications as directed *Follow up with your primary care provider this week however call tomorrow *Return to ER if you should have persistent worsening bleeding, or any new, worsening or concerning symptoms Prescriptions: No Action multivitamin Capsule 1 cap PO DAILY Qty: 0 RF: 0 simvastatin 10 mg Tablet 10 mg PO QPM RF: 0 tramadol 50 mg Tablet 50 mg PO BEDTIME PRN (Reason: Pain) RF: 0 alprazolam 0.25 mg Tablet 0.25 mg PO TID PRN (Reason: Anxiety) RF: 0 losartan 25 mg Tablet 25 mg PO BEDTIME RF: 0 hydrochlorothiazide 12.5 mg Capsule 12.5 mg PO DAILY RF: 0 fluticasone propionate 50 mcg/actuation Desmet,Suspension 1 spray INTRANASAL DAILY RF: 0 aspirin 81 mg Tablet,Delayed Release (Dr/Ec) 81 mg PO DAILY RF: 0 loratadine [Claritin] 10 mg Tablet 10 mg PO DAILY RF: 0 omeprazole magnesium [Prilosec OTC] 20 mg Tablet,Delayed Release (Dr/Ec) 10 mg PO DAILY RF: 0 hydrocodone-acetaminophen 10-325 mg Tablet 1 tab PO Q4-5H PRN (Reason: Pain, Moderate (4-6)) Qty: 60 RF: 0 Referrals: Alejandro Gallegos MD [Primary Care Provider] -
[2020-03-26 11:55] LABS: INR 1.1 (0.9-1.3); Prothrombin Time 12.2 SECONDS (10.1-12.7)
[2020-03-26 11:57] LABS: PTT Partial Thromboplastin Tim 30 SECONDS (26.4-36.2)
[2020-03-26 12:00] VITALS: BP 147/98; PULSE 81; RESP 20; O2SAT 98
[2020-03-26] MEDS: PANTOPRAZOLE 40 MG VIAL IV (12:10)
[2020-03-26 12:30] VITALS: BP 142/88; PULSE 81; RESP 12; O2SAT 97
[2020-03-26 13:20] VITALS: BP 151/88; PULSE 82; RESP 18; O2SAT 96
== END 2020-03-26 13:25 | disposition home or self-care (01) ==
PROVIDERS: Emergency Provider Emergency Medicine; Family Provider Internal Medicine; PCP Internal Medicine
DX: K62.5 Hemorrhage of anus and rectum (principal)
CPT/HCPCS: 36415; 80053; 83605; 85025; 85610; 85730; 86850; 86900; 86901; 96374; 99284; C9113

== ENCOUNTER → 2020-03-31 14:17 | Outpatient (CLI) | payer MEDICARE, SELFPAY ==
[2019-12-08 14:40] VITALS: BMI 34.2
[2020-03-31 14:40] LABS: Add Manual Diff / Slide Review NO; Basophils Absolute Auto 100 /uL (0-100); Basophils Percent Auto 0.9 % (0-2); Eosinophils Absolute Auto 100 /uL (0-450); Eosinophils Percent Auto 1.6 % (2-4); Hemoglobin 14.1 g/dL (13.5-17.5); Lymphocytes Absolute Auto 1700 /uL (1100-4500); Lymphocytes Percent Auto 22.5 % (25-40); Mean Corpuscular HGB Conc 34.4 % (30-36); Mean Corpuscular Hemoglobin 32.3 PG (26-34); Mean Corpuscular Volume 93.7 fL (80-100); Monocytes Absolute Auto 600 /uL (0-900); Monocytes Percent Auto 7.9 % (3-14); Neutrophils Absolute Auto 5000 /uL (1500-7000); Neutrophils Percent Auto 67.1 % (50-75); Platelet Count 192 X10^3/uL (150-400); Red Blood Cell Count 4.38 X10^6/uL (4.5-5.9); Red Cell Distribution Width 14.6 % (11.6-14.8); White Blood Cell Count 7.4 X10^3/uL (4.5-11.0)
[2020-03-31 15:14] LABS: HEMOLYSIS < 15 (0-50); Iron 64 ug/dL (49-181)
[2020-03-31 15:25] LABS: Percent Iron Saturation 19 % (20-50); Total Iron Binding Capacity 339 ug/dL (261-462); Transferrin 250 mg/dL (206-381)
== END ==
PROVIDERS: Family Provider Internal Medicine; PCP Internal Medicine; Referring Provider Internal Medicine; Visit Provider Internal Medicine
DX: K62.5 Hemorrhage of anus and rectum (principal)
CPT/HCPCS: 36415; 83540; 83550; 85025

== ENCOUNTER → 2020-04-22 13:29 | Outpatient (CLI) | payer MEDICARE, SELFPAY ==
[2019-12-08 14:40] VITALS: BMI 34.2
[2020-04-22 14:42] LABS: COVID19 -Nasal RAPID Negative (Negative)
== END ==
PROVIDERS: Family Provider Internal Medicine; PCP Internal Medicine; Visit Provider Nurse Practitioner
DX: Z11.59 Encounter for screening for other viral diseases (principal)
CPT/HCPCS: 87635

== ENCOUNTER 2020-04-24 10:21 | Day surgery (SDC) | payer MEDICARE, SELFPAY ==
[2019-12-08 14:40] VITALS: BMI 34.2
--- NOTE | 2020-04-24 | PATH_ITS ---
[facility] Accession Number: [id number] . 01 Material submitted: . colon - ASCENDING COLON POLYP . 01 Clinical history: . SDC . 02 Diagnosis: Ascending Colon, Polyp: Vegetable material. No tissue identified. MRV 04/26/2020 1005 Local . 02 Electronically signed: . Ambrocio Shipman MD, PhD, Pathologist NPI- [id number] . 01 Gross description: . Received in formalin, labeled ascending colon polyp, and consists of a 0.3 x 0.2 x 0.2 cm dawkins fragment of soft tissue, which is entirely submitted in cassette A1. ([id number]) /MRV 04/25/2020 1401 Local . 02 Pathologist provided ICD-10: K63.5 . 02 CPT . 362219 Performed at: 01 [facility] [address] [id number] MD Micah Salazar MD Phone: [phone] Performed at: 02 [facility] [id number] [place] [id number] MD Tatianna Gant MD Phone: [phone]
[2020-04-24 10:42] VITALS: BP 134/85; PULSE 103; RESP 18; TEMP 36.8; O2SAT 96; BMI 32.7
[2020-04-24] MEDS: LACTATED RINGERS 1,000 ML 200 ML IV (11:01)
--- NOTE | 2020-04-24 11:40 | PM.PREOP ---
Pre-operative Note COVID-19 COVID-19 status: Negative Interval Note History & Physical reviewed/Exam performed by Physician: Yes Changes to H&P: No ASA Class (for procedural sedation): II
[2020-04-24] MEDS: ONDANSETRON 4 MG/2 ML INJ IV (11:43)
[2020-04-24] MEDS: LIDOCAINE 4% SOLN 50 ML 20 ML TOP (11:44)
[2020-04-24] MEDS: fentaNYL 250 MCG/5 ML INJ IV (12:08)
[2020-04-24] MEDS: MIDAZOLAM 5 MG/5 ML VIAL IV (12:21)
[2020-04-24 12:41] VITALS: BP 118/83; PULSE 89; RESP 12; TEMP 36.2; O2SAT 94
--- NOTE | 2020-04-24 12:42 | PM.OP.ENDO ---
Operative Date/Time/Diagnoses Date of procedure: 04/24/20 Time of procedure: 12:42 Pre-op diagnosis: Blood per rectum Post-op diagnosis: other (Mild gastritis, hiatal hernia, diverticulosis, ascending colon polyp) Procedure & Clinicians Study performed: Esophagoduodenoscopy Colonoscopy Polypectomy Same procedure as scheduled: Yes Indications: 69-year-old man with several episodes of bright red blood per rectum here for EGD and colonoscopy Surgeon: Jairo Vargas Procedure Notes Procedure in detail: The history and physical was performed/updated and the patient is ASA class is 2. The procedure was discussed in detail with the patient. Potential risks complications including infection, bleeding, missed diagnosis, perforation, need for surgery, and were explained. Their questions were answered and informed consent was obtained. Patient placed in left lateral decubitus position. Time out was performed. Procedural sedation was administered with Versed and Fentanyl. A bite block was placed. the scope was inserted into the mouth and advanced through the esophagus and into the stomach. The pylorus was intubated and the duodenum was normal to the 2nd portion. The scope was retroflexed within the stomach and there was a small hiatal hernia. No ulcers, MILD GASTRITIS. The scope was withdrawn into the esophagus the Z line was seen at 40 cm from the incisions. There was no Harris's esophagitis or masses or strictures. Stomach was desufflated and scope removed. Patient tolerated procedure well. Examination began with a thorough inspection of the perianal area there was no evidence of fissures, fistulae, external hemorrhoids or cutaneous malignancy. The colonoscopy scope was then placed into the anal canal and was advanced to the cecum, which was identified by the ileocecal valve, the appendiceal orifice and the confluence of the taenia. The scope was then slowly withdrawn examining colon thoroughly in all directions, irrigating it of any residual stool. Sigmoid diverticulosis-likely source of bleeding 5mm polyp in ascending colon biopsy-biopsy via forceps. Due to the position of the polyp unable to remove in its entirety and was there ablated with coagulation The patient tolerated the procedure well. They will be discharged once criteria are met. The prep was of good/excellent quality. The withdrawl time was 22 minutes. The sedation time was 50 minutes. Specimen(s): other (ascending colonic polyp) Complications: none Impression: gastritis, hiatal hernia, ascending colonic polyp, diverticulosis Post-procedure Recommendations: Colonscopy in 5 years Disposition: same day surgery
[2020-04-24 12:48] VITALS: BP 118/84; PULSE 87; RESP 12; O2SAT 95
[2020-04-24 12:51] VITALS: BP 105/78; PULSE 88; RESP 18; O2SAT 94
[2020-04-24 12:56] VITALS: BP 113/80; PULSE 88; RESP 16; TEMP 36.9; O2SAT 95
[2020-04-24 12:59] VITALS: BP 122/84; PULSE 85; RESP 18; TEMP 36.9; O2SAT 94
== END 2020-04-24 13:33 | disposition home or self-care (01) ==
PROVIDERS: Family Provider Internal Medicine; PCP Internal Medicine; Referring Provider Internal Medicine; Visit Provider Surgery
PROC: 0DJ08ZZ Inspection of Upper Intestinal Tract, Via Natural or Artificial Opening Endoscopic (ICD-10-PCS; CPT 43235; principal; 2020-04-24 11:30)
PROC: 0DJD8ZZ Inspection of Lower Intestinal Tract, Via Natural or Artificial Opening Endoscopic (ICD-10-PCS; CPT 45378; 2020-04-24 11:30)
DX: K57.30 Diverticulosis of large intestine without perforation or abscess without bleeding (principal); K44.9 Diaphragmatic hernia without obstruction or gangrene; K29.50 Unspecified chronic gastritis without bleeding; K21.9 Gastro-esophageal reflux disease without esophagitis; Z79.82 Long term (current) use of aspirin; I10 Essential (primary) hypertension; I45.10 Unspecified right bundle-branch block; F41.9 Anxiety disorder, unspecified; D12.2 Benign neoplasm of ascending colon
CPT/HCPCS: 45380; 43235; 99152; 99153; J2250; J2405; J3010

== ENCOUNTER 2020-06-23 12:15 | Outpatient (RCR) | payer MEDICARE, OTHER, SELFPAY ==
[2019-12-08 14:40] VITALS: BMI 34.2
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
--- NOTE | 2020-02-16 16:31 | PT.OPPOC ---
Physical, Occupational & Speech Therapy At [facility] Current Diagnoses Spinal stenosis, lumbar region without neurogenic claudication (02/16/20) Postlaminectomy syndrome, not elsewhere classified (02/16/20) Visit Care Team Role Provider Type Alejandro Gallegos MD Family Provider Physician Primary Care Provider Specialty: Internal Medicine Address: [address] [place] [address], [id number] Email: [email or web address] Juliet Barnes MD Attending Provider Physician Referring Provider Specialty: Orthopedic Surgery Address: [address] [place] [address], [id number] Email: [email or web address] Plan Of Care PT-OP-T Assessment and Plan Start: 02/15/20 07:23 Freq: Status: Active Protocol: Document 02/16/20 10:35 MB (Rec: 02/16/20 16:20 MB [id number]) Physical Therapy Assessment Rehab Potential Rehabilitation Potential Fair Evaluation Complexity Number of Personal Factors/Comorbidities 1-2 Number of Body Systems Impaired 1-2 Clinical Presentation at Evaluation Stable Impairments Impairments Balance,Functional Activities, Functional Mobility,Gait, Integument,Pain,Posture,ROM, Sensation,Soft Tissue Mobility ,Strength Goals 5 Patch Press Operator Goal (LTG) Pt will gait train at least 1200 feet in 6 minutes with or without AD to prepare for safe community ambulation by 04/17/2020. LTG Duration 8 weeks 4 Patch Press Operator Goal (LTG) Pt will present with an improved Oswestry LBP scale score to reflect no more than 20% impairment to reduce pain with functional activities by 04/17/2020. LTG Duration 8 weeks 3 Patch Press Operator Goal (LTG) Pt will present with improved left heel slide up to right knee in sitting to allow I donning of shoes and socks without aides by 04/17/2020. LTG Duration 8 weeks 2 Detention Goal (LTG) Pt will perform progressive HEP with I including pelvic realignment, flexibility, balance, functional activities , transfers, gait and strengthening to improve strength and mobility by 04/17. LTG Duration 8 weeks 1 Patch Press Operator Goal (LTG) Pt will peform supine<>sit, rolling and scooting in bed with UE use only and no AD to improve I with bed mobility by 04/17/2020. LTG Duration 8 weeks Assessment Summary Assessment Pt is a 69 y/o male presenting with LB and LLE pain, decreased balance, strength and ROM s/p spinal fusion. He has history of right TKR, another spinal surgery, nerve damage in his left foot and right foot fractures s/p surgery. These are contributors to current weakness and postural changes. Pt was compliant with PT course at this clinic prior to surgery. He will benefit from PT for balance, core and LE strengthening, flexibility, pelvic alignment and gait training as well as manual PT as needed. Barriers include postural changes, multiple joint changes, increased body habitus. Physical Therapy Plan Frequency and Duration Frequency of Treatment 2x/Week Duration of Treatment 8 weeks Plan of Care Start Date 02/16/20 Plan of Care End Date 04/17/20 Therapeutic Interventions Therapeutic Interventions Aquatic Therapy,Balance Training,Canalithic Repositioning,Coordination Training,Gait Training,Home Exercise Program,Manual Therapy,Neuromuscular Re- education,Patient/Caregiver Education,Self-Care/Home Management,Sensory Integration ,Soft Tissue Mobilization, Taping,Therapeutic Activities, Therapeutic Exercises Modalities Cold Pack/Ice Massage,Electric Stimulation,Hot Packs, Ultrasound Next Visit Focus/Plan Next Note Type Treatment Note Next Visit Plan Review exercises and progress flexibility exercises, use previous HEP as template and add exercises back in as appropriate. Consider gym cardio machine as well Plan of Care Dates Plan of Care Start Date 02/16/20 Plan of Care End Date 04/17/20 Electronically Signed by: Jalyn Dinh, PT 02/16/20 0233 Please Sign and Return: I have reviewed this Plan of Care and certify that the skilled therapy services above are required to meet the patient?s needs. Physician Signature Date Printed Name and Credentials Clinical Instructor Signature Printed Name and Credentials
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
--- NOTE | 2020-04-06 13:02 | PT.OPPOC ---
Physical, Occupational & Speech Therapy At [facility] Current Diagnoses Spinal stenosis, lumbar region without neurogenic claudication (04/06/20) Postlaminectomy syndrome, not elsewhere classified (04/06/20) Visit Care Team Role Provider Type Alejandro Gallegos MD Family Provider Physician Primary Care Provider Specialty: Internal Medicine Address: [address] [place] [address], [id number] Email: [email or web address] Barnes MD Attending Provider Physician Referring Provider Specialty: Orthopedic Surgery Address: [address] [place] [address], [phone] Email: [email or web address] Plan Of Care PT-OP-T Assessment and Plan Start: 02/15/20 07:23 Freq: Status: Active Protocol: Document 04/06/20 12:10 MB (Rec: 04/06/20 12:21 MB [id number]) Physical Therapy Assessment Goals 5 Machine Shop Worker Goal (LTG) Pt will gait train at least 1200 feet in 6 minutes with or without AD to prepare for safe community ambulation by 05/25/2020. 03/23-952ft LTG Duration 8 weeks 4 Snf Goal (LTG) Pt will present with an improved Oswestry LBP scale score to reflect no more than 20% impairment to reduce pain with functional activities by 05/25/2020. 03/23-46% LTG Duration 8 weeks 3 Snf Goal (LTG) Pt will present with improved left heel slide up to right knee in sitting to allow I donning of shoes and socks without aides by 05/25/2020. 03/23-able to slide up about 1 /2 way LTG Duration 8 weeks 2 Snf Goal (LTG) Pt will perform progressive HEP with I including pelvic realignment, flexibility, balance, functional activities , transfers, gait and strengthening to improve strength and mobility by 05/25. 03/23-pt doing well with current HEP-progressing as needed LTG Duration 8 weeks 1 Machine Shop Worker Goal (LTG) Pt will peform supine<>sit, rolling and scooting in bed with UE use only and no AD to improve I with bed mobility by 04/17/2020. LTG Duration achieved Assessment Summary Assessment Pt responds well to ongoing MWM soft tissue work and further education for self- care at home. Would benefit from QL work and will try to modify as he can tolerate to promote flexibility. Physical Therapy Plan Frequency and Duration Frequency of Treatment 2x/Week Duration of Treatment 8 weeks Plan of Care Start Date 04/06/20 Plan of Care End Date 05/25/20 Therapeutic Interventions Therapeutic Interventions Aquatic Therapy,Balance Training,Canalithic Repositioning,Coordination Training,Gait Training,Home Exercise Program,Manual Therapy,Neuromuscular Re- education,Patient/Caregiver Education,Self-Care/Home Management,Sensory Integration ,Soft Tissue Mobilization, Taping,Therapeutic Activities, Therapeutic Exercises Modalities Cold Pack/Ice Massage,Electric Stimulation,Hot Packs, Ultrasound Next Visit Focus/Plan Next Note Type Treatment Note Next Visit Plan Possible doorway work, QL flexibility. Continue manual intervention, progressive strengthening, ROM as amos toward functional benefits. Plan of Care Dates Plan of Care Start Date 04/06/20 Plan of Care End Date 05/25/20 Electronically Signed by: Jalyn Dinh, PT 04/06/20 9233 Please Sign and Return: I have reviewed this Plan of Care and certify that the skilled therapy services above are required to meet the patient?s needs. Physician Signature Date Printed Name and Credentials Clinical Instructor Signature Printed Name and Credentials
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
--- NOTE | 2020-05-08 14:46 | PT.OPPOC ---
Physical, Occupational & Speech Therapy At [facility] Current Diagnoses Spinal stenosis, lumbar region without neurogenic claudication (05/08/20) Postlaminectomy syndrome, not elsewhere classified (05/08/20) Visit Care Team Role Provider Type Alejandro Gallegos MD Family Provider Physician Primary Care Provider Specialty: Internal Medicine Address: [address] [place] [address], [id number] Email: [email or web address] Juliet Barnes MD Attending Provider Physician Referring Provider Specialty: Orthopedic Surgery Address: [address] [place] [address], [id number] Email: [email or web address] Plan Of Care PT-OP-T Assessment and Plan Start: 02/15/20 07:23 Freq: Status: Active Protocol: Document 05/08/20 13:45 MB (Rec: 05/08/20 14:45 MB [id number]) Physical Therapy Assessment Goals 6 Napper Grinder Goal (LTG) Pt will present with B hip flexion MMT in sitting to 5/5 to improve functional transfers by 06/25/2020. 05/08/2020: Right hip flexion MMT in sitting 4/5 and left 3/ 5 LTG Duration 6 weeks 5 Jail Goal (LTG) Pt will gait train at least 1300 feet in 6 minutes without AD to prepare for safe community ambulation by 2020. 05/08/2020: Pt gait trains 1098 feet in 6 minutes and he reports tiredness in his low back. His gait is slow and looks antalgic on the left leg LTG Duration 6 weeks 4 Jail Goal (LTG) Pt will present with an improved Oswestry LBP scale score to reflect no more than 30% impairment to reduce pain with functional activities by 06/25/2020. 05/08/2020: Oswestry score is 38%, improvement since reassessment LTG Duration 6 weeks 3 Napper Grinder Goal (LTG) Pt will present with improved left heel slide up to right knee in sitting to allow I donning of shoes and socks without aides by 05/25/2020. 05/08/2020: Pt is able to slide his left heel up his right green equal distance to right heel slide up left green. He can doff left shoe in low seat with foot on the floor and his hand (no aide) LTG Duration Met 2 Jail Goal (LTG) Pt will perform progressive HEP with I including pelvic realignment, flexibility, balance, functional activities , transfers, gait and strengthening to improve strength and mobility by 2020. 05/08/2020: Pt is performing HEP LTG Duration 6 weeks Assessment Summary Assessment Pt has progressed towards all goals since last reassessment. These include Oswestry, hip strength, 6MWT and performance of HEP. Pt is able to don and doff left shoe by himself today. He will benefit from ongoing PT for further manual work, strengthening including PNF and pelvic floor therapist to comment on any contributions to weakness and pain. Physical Therapy Plan Frequency and Duration Frequency of Treatment 2x/Week Duration of Treatment 8 weeks Plan of Care Start Date 04/06/20 Plan of Care End Date 05/25/20 Therapeutic Interventions Therapeutic Interventions Aquatic Therapy,Balance Training,Canalithic Repositioning,Coordination Training,Gait Training,Home Exercise Program,Manual Therapy,Neuromuscular Re- education,Patient/Caregiver Education,Self-Care/Home Management,Sensory Integration ,Soft Tissue Mobilization, Taping,Therapeutic Activities, Therapeutic Exercises Modalities Cold Pack/Ice Massage,Electric Stimulation,Hot Packs, Ultrasound Next Visit Focus/Plan Next Note Type Treatment Note Next Visit Plan Con't manual interventions, possible side lying PNF for pelvis and hip flexor (with pillow under bottom hip and yoga mat), consider PNF movement for hip flexion and opposite hip extension standing at [place], consider mini wall squat Plan of Care Dates Plan of Care Start Date 04/06/20 Plan of Care End Date 05/25/20 Electronically Signed by: Jalyn Dinh, PT 05/08/20 3020 Please Sign and Return: I have reviewed this Plan of Care and certify that the skilled therapy services above are required to meet the patient?s needs. Physician Signature Date Printed Name and Credentials Clinical Instructor Signature Printed Name and Credentials
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
--- NOTE | 2020-05-23 13:48 | PT.OPPOC ---
Physical, Occupational & Speech Therapy At [facility] Current Diagnoses Spinal stenosis, lumbar region without neurogenic claudication (05/23/20) Postlaminectomy syndrome, not elsewhere classified (05/23/20) Visit Care Team Role Provider Type Alejandro Gallegos MD Family Provider Physician Primary Care Provider Specialty: Internal Medicine Address: [address] [place] [address], [id number] Email: [email or web address] Juliet Barnes MD Attending Provider Physician Referring Provider Specialty: Orthopedic Surgery Address: [address] [place] [address], [address] Email: [email or web address] Plan Of Care PT-OP-T Assessment and Plan Start: 02/15/20 07:23 Freq: Status: Active Protocol: Document 05/23/20 13:01 MB (Rec: 05/23/20 13:48 MB [id number]) Physical Therapy Assessment Goals 6 Lead Java Developer Architect Goal (LTG) Pt will present with B hip flexion MMT in sitting to 5/5 to improve functional transfers by 06/25/2020. 05/08/2020: Right hip flexion MMT in sitting 4/5 and left 3/ 5 LTG Duration 6 weeks 5 [facility] Goal (LTG) Pt will gait train at least 1300 feet in 6 minutes without AD to prepare for safe community ambulation by 2020. 05/08/2020: Pt gait trains 1098 feet in 6 minutes and he reports tiredness in his low back. His gait is slow and looks antalgic on the left leg LTG Duration 6 weeks 4 [facility] Goal (LTG) Pt will present with an improved Oswestry LBP scale score to reflect no more than 30% impairment to reduce pain with functional activities by 06/25/2020. 05/08/2020: Oswestry score is 38%, improvement since reassessment LTG Duration 6 weeks 2 Lead Java Developer Architect Goal (LTG) Pt will perform progressive HEP with I including pelvic realignment, flexibility, balance, functional activities , transfers, gait and strengthening to improve strength and mobility by 2020. 05/08/2020: Pt is performing HEP LTG Duration 6 weeks Assessment Summary Assessment Progressed multifidi and balance exercises today. Pt states that he can manage current exercises and PT encourages him to divide them up as needed. Pt missed appointment with pelvic floor PT and another is scheduled. Review bridge and consider adding band to further engage glutes. Physical Therapy Plan Frequency and Duration Frequency of Treatment 2x/Week Duration of Treatment 8 weeks Plan of Care Start Date 05/23/20 Plan of Care End Date 06/25/20 Therapeutic Interventions Therapeutic Interventions Aquatic Therapy,Balance Training,Canalithic Repositioning,Coordination Training,Gait Training,Home Exercise Program,Manual Therapy,Neuromuscular Re- education,Patient/Caregiver Education,Self-Care/Home Management,Sensory Integration ,Soft Tissue Mobilization, Taping,Therapeutic Activities, Therapeutic Exercises Modalities Cold Pack/Ice Massage,Electric Stimulation,Hot Packs, Ultrasound Next Visit Focus/Plan Next Note Type Treatment Note Next Visit Plan Pelvic trading floor operator to treat pt. Consider adding band around knees for glutes. Con't manual interventions, possible side lying PNF for pelvis and hip flexor (with pillow under bottom hip and yoga mat), consider mini wall squat Plan of Care Dates Plan of Care Start Date 05/23/20 Plan of Care End Date 06/25/20 Electronically Signed by: Jalyn Dinh, PT 05/23/20 [id number] Please Sign and Return: I have reviewed this Plan of Care and certify that the skilled therapy services above are required to meet the patient?s needs. Physician Signature Date Printed Name and Credentials Clinical Instructor Signature Printed Name and Credentials
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
== END 2020-06-26 14:03 | disposition home or self-care (01) ==
LOC: PHYS 12:15
PROVIDERS: Family Provider Internal Medicine; PCP Internal Medicine; Referring Provider Orthopaedic Surgery Orthopaedic Surgery of the Spine; Visit Provider Orthopaedic Surgery Orthopaedic Surgery of the Spine
DX: M96.1 Postlaminectomy syndrome, not elsewhere classified (principal); M48.061 Spinal stenosis, lumbar region without neurogenic claudication
CPT/HCPCS: 97110; 97112; 97116; 97140; 97161; 97530; 97535

== ENCOUNTER → 2020-07-12 11:37 | Outpatient (CLI) | payer OTHER, SELFPAY ==
[2019-12-08 14:40] VITALS: BMI 34.2
--- NOTE | 2020-07-12 | DI.CT.S_ITS ---
PROCEDURE: CT LUMBAR SPINE WO CON INDICATIONS: Spinal stenosis, lumbar region without neurogenic claudicati TECHNIQUE: Noncontrast 3 mm thick sections acquired from the T12 level to the sacrum. Sagittal and coronal reformats were constructed. For radiation dose reduction, the following was used: automated exposure control. COMPARISON: None. FINDINGS: Image quality: Excellent. Bones: Postsurgical changes compatible with L4-S1 TLIF noted. Orthopedic hardware is intact. Lucencies noted at the bone-hardware interface of the bilateral L4 transpedicular screws. There is trace L2-L3 and L3-L4 retrolisthesis. No acute vertebral body compression fractures. No suspicious lytic or blastic bony lesions. No pars defects. T12-L1: Slight loss of disc height. Vacuum disc phenomenon. Minimal, diffuse disc bulge. Mild bilateral facet hypertrophy. No central stenosis. No neural foraminal narrowing. No neural compression. L1-L2: Loss of disc height. Vacuum disc phenomena. Mild, diffuse disc bulge. Mild bilateral facet hypertrophy. Mild narrowing of the central canal. No neural foraminal narrowing. No neural compression. L2-L3: Loss of disc height. Mild, diffuse disc bulge. Mild bilateral facet hypertrophy. Mild narrowing of the central canal. Mild bilateral neural foraminal narrowing. No neural compression. L3-L4: Slight loss of disc height. Moderate, diffuse disc bulge. Olnm-hn-eaitnlxy bilateral facet hypertrophy. Mild ligamentum flavum hypertrophy. Moderate narrowing of the central canal. Moderate right and mild left neural foraminal narrowing. No neural compression. L4-L5: Status post fusion. Kbrc-ar-bjcommsg right facet hypertrophy. No central stenosis. Yywc-pw-ysytyoad right and moderate to severe left neural foraminal narrowing with slight compression of the exiting left L4 nerve root. L5-S1: Status post fusion. Moderate, diffuse disc bulge. Vean-db-hsiverzu bilateral facet hypertrophy. No central stenosis. Mild right and severe left neural foraminal narrowing with marked compression of the exiting left L5 nerve root. Soft tissues: No retroperitoneal masses or hematomas. Visualized aorta is normal in caliber. Scattered atherosclerotic calcifications involving the visualized abdominal and pelvic vasculature. 3.7 centimeter left renal cyst. Scattered diverticuli noted in the visualized colon without evidence of diverticulitis. IMPRESSION: 1. Status post L4-S1 TLIF. 2. 2 millimeter lucencies noted adjacent to the bilateral L4 transpedicular screws which could be due to hardware loosening or infection. 3. Multilevel degenerative disc disease. 4. Multilevel facet arthropathy. 5. Moderate L3-L4 central canal narrowing. 6. Severe left L5-S1 neural foraminal narrowing with marked compression of the exiting left L5 nerve root. Moderate to severe L4-L5 neural foraminal narrowing with slight compression of the exiting left L4 nerve root. Dictated by: Natasha Carreno MD, PhD on 07/12/2020 at 16:58 Approved by: Natasha Carreno MD, PhD on 07/12/2020 at 17:06
== END ==
PROVIDERS: Family Provider Internal Medicine; PCP Internal Medicine; Referring Provider Orthopaedic Surgery Orthopaedic Surgery of the Spine; Visit Provider Orthopaedic Surgery Orthopaedic Surgery of the Spine
DX: M48.061 Spinal stenosis, lumbar region without neurogenic claudication (principal); M48.07 Spinal stenosis, lumbosacral region; M47.816 Spondylosis without myelopathy or radiculopathy, lumbar region; M51.36 Other intervertebral disc degeneration, lumbar region; M51.37 Other intervertebral disc degeneration, lumbosacral region; M47.817 Spondylosis without myelopathy or radiculopathy, lumbosacral region; Z98.1 Arthrodesis status
CPT/HCPCS: 72131

== ENCOUNTER → 2020-08-02 15:34 | Outpatient (CLI) | payer MEDICARE, SELFPAY ==
[2019-12-08 14:40] VITALS: BMI 34.2
[2020-08-02] MEDS: COVID-19 VACC, Ad26(JANSSEN)/PF 0.5 ML IM (15:47)
== END ==
PROVIDERS: PCP Internal Medicine; Visit Provider Internal Medicine
DX: Z23 Encounter for immunization (principal)
CPT/HCPCS: 0031A; 91303

== ENCOUNTER → 2020-10-31 09:05 | Outpatient (CLI) | payer OTHER, SELFPAY ==
[2019-12-08 14:40] VITALS: BMI 34.2
[2020-10-31 11:28] LABS: Add Manual Diff / Slide Review NO; Basophils Absolute Auto 0 /uL (0-100); Basophils Percent Auto 0.5 % (0-2); Eosinophils Absolute Auto 100 /uL (0-450); Eosinophils Percent Auto 1.8 % (2-4); Hemoglobin 14.5 g/dL (13.5-17.5); Lymphocytes Absolute Auto 1300 /uL (1100-4500); Lymphocytes Percent Auto 22.5 % (25-40); Mean Corpuscular HGB Conc 33.6 % (30-36); Mean Corpuscular Hemoglobin 32.4 PG (26-34); Mean Corpuscular Volume 96.4 fL (80-100); Monocytes Absolute Auto 600 /uL (0-900); Monocytes Percent Auto 10.6 % (3-14); Neutrophils Absolute Auto 3700 /uL (1500-7000); Neutrophils Percent Auto 64.6 % (50-75); Platelet Count 186 X10^3/uL (150-400); Red Blood Cell Count 4.46 X10^6/uL (4.5-5.9); Red Cell Distribution Width 14.7 % (11.6-14.8); White Blood Cell Count 5.7 X10^3/uL (4.5-11.0)
[2020-10-31 11:57] LABS: Alanine Aminotransferase 58 IU/L (<50); Albumin 4.4 g/dL (3.5-5.0); Albumin Globulin Ratio 1.3 (1.0-2.8); Alkaline Phosphatase 55 U/L (38-126); Aspartate Aminotransferase 48 IU/L (17-59); Bilirubin Total 0.7 mg/dL (0.2-1.3); Blood Urea Nitrogen 23 mg/dL (9-20); Calcium 9.9 mg/dL (8.4-10.2); Carbon Dioxide 26 mmol/L (22-32); Chloride 102 mmol/L (98-107); Cholesterol 150 mg/dL (140-199); Estimated Glomerular Filt Rate > 60.0 mL/min (>60); Globulin 3.4 g/dL (1.7-4.1); Glucose 113 mg/dL (80-110); HDL Cholesterol 31 mg/dL (40-60); HEMOLYSIS 33 (0-50); LDL Cholesterol Calculated 71 mg/dL (<100); Sodium 136 mmol/L (137-145); Total Protein 7.8 g/dL (6.3-8.2); Triglycerides 238 mg/dL (35-150)
== END ==
PROVIDERS: PCP Internal Medicine; Referring Provider Internal Medicine; Visit Provider Internal Medicine
DX: Z01.818 Encounter for other preprocedural examination (principal); E78.00 Pure hypercholesterolemia, unspecified; Z01.812 Encounter for preprocedural laboratory examination; M15.0 Primary generalized (osteo)arthritis; K57.31 Diverticulosis of large intestine without perforation or abscess with bleeding
CPT/HCPCS: 36415; 80053; 80061; 85025; 93005

== ENCOUNTER → 2020-11-18 09:52 | Outpatient (CLI) | payer OTHER, SELFPAY ==
[2019-12-08 14:40] VITALS: BMI 34.2
[2020-11-18 11:35] LABS: COVID19 -Nasal RAPID Negative (Negative)
== END ==
PROVIDERS: PCP Internal Medicine; Referring Provider Physician Assistant; Visit Provider Physician Assistant
DX: Z01.812 Encounter for preprocedural laboratory examination (principal); Z20.822 Contact with and (suspected) exposure to COVID-19
CPT/HCPCS: 87635

== ENCOUNTER 2020-11-21 12:33 | Observation (INO) | payer OTHER, SELFPAY ==
[2019-12-08 14:40] VITALS: BMI 34.2
[2020-11-13 09:40] VITALS: BMI 34.5
[2020-11-20] VITALS (21 sets, daily range): BP systolic 114–142; BP diastolic 67–97; PULSE 83–96; RESP 10–18; TEMP 36.1–36.8; O2SAT 92–98; BMI 34.2
[2020-11-20] MEDS: LACTATED RINGERS 1,000 ML 42 ML IV ×2 (11:54→14:00)
--- NOTE | 2020-11-20 12:36 | PM.PREOP ---
Pre-operative Note COVID-19 COVID-19 status: Negative Result date/Date tested (Pos, Neg/Pending): 11/18/20 Interval Note History & Physical reviewed/Exam performed by Physician: Yes Changes to H&P: No
[2020-11-20] MEDS: CEFAZOLIN 1 GM VIAL 2 GM IV ×2 (13:09→22:57)
[2020-11-20] MEDS: BUPIVACAINE 0.25% (PF) VIAL 30 ML INJ (13:39)
[2020-11-20] MEDS: BUPIVACAINE LIPOSOME 266 MG/20 ML VIAL INJ (13:39)
--- NOTE | 2020-11-20 15:20 | DI.RAD.S_ITS ---
PROCEDURE: XR LUMBAR SPINE 2-3V INDICATIONS: FORAMINOTOMY TECHNIQUE: 2 views of the lumbar spine were acquired. COMPARISON: [facility], , XR LUMBAR SPINE 2-3V, 12/08/2019, 9:16. FINDINGS: Operative C-arm images demonstrate posterior lateral arian and pedicle screw fixation at the L4 through S1 level in unchanged positions. IMPRESSION: C-arm images again demonstrating posterior/interbody fusion from the L4 through the S1 level. Dictated by: David Callahan [facility] Interpreted: Jamel Castillo MD on 11/20/2020 at 15:30 Transcribed by: KOTA on 11/20/2020 at 15:32 Approved by: Jamel Castillo M.D. on 11/20/2020 at 17:08
--- NOTE | 2020-11-20 15:26 | PM.OP.1 ---
Operative Date/Time/Diagnoses Date of procedure: 11/20/20 Time of procedure: 13:00 Pre-op diagnosis: 1. Hx of L4-5, L5-S1 fusion with instrumentation 2. L4-5, L5-S1 foramen stenosis with radiculopathy Post-op diagnosis: same Procedure & Clinicians Procedure: 1. L4-5, L5-S1 posterior segmental instrumentation removal 2. L4-5, L5-S1 revision hemilaminectomy with exploration of fusion 3. L4-5 posterolateral fusion 4. L4-S1 posterior non-segmental instrumentation 5. Utilization of microsurgical technique and operating microscope Same procedure as scheduled: Yes Indications: Patient has been having chronic back pain and worsening lumbar radiculopathy. Patient had previous lumbar fusion with recent recurrence of left-sided radiculopathy failing conservative care. Patient failed multiple conservative management with worsening pain weakness and numbness in his left lower extremity. Patient has been having difficulty performing activity of daily living. After discussing risks benefits of treatment options, patient elected proceed with surgery. Surgeon: Juliet Barnes Chopped Strand Operator: Herbert Jacome Click Yes if Unassisted: No Anesthesia Type: General Operative Notes Closure Type: primary Specimen(s): none sent Prosthetic devices, grafts, tissues, transplants, or devices: Globus revolve screws Applied: drain(s) (HV drain on the left side, sutured to patient's skin) Estimated Blood Loss (mL): 50 Blood products transfused: none Procedure in detail: Patient was seen in the preoperative area. Risks and benefits of the surgery was discussed with the patient. Informed consent was obtained from the patient and placed in the chart. Surgical site was marked. Patient was taken to the operative room. General anesthesia was administered. Prophylactic antibiotic was given to the patient less than 30 min before the incision was made. Patient was placed into a prone position on the Flavio table. Patient's back was then prepped and draped in the sterile fashion. Time-out was performed at this time. Using patient's previous scar incision was made over the L4-5, L5-S1 interval on the left side. Fascia was incised in line with skin incision. Patient's previously placed hardware over the L4-5, L5-S1 level was identified by dissecting down to the level the hardware using a Bovie and a Guevara. The locking caps which was removed using globus screwdriver. The locking arian was then removed from the tulips of the pedicle screws using a Karuna. The pedicle screws were then removed using the screwdriver. The screws were found to have decreased purchase with mild loosening. The Globus and MARS retractors was then placed into the wound and docked onto the L4 and L5 lamina using C-arm guidance. Using microsurgical technique and operating microscope a revision hemilaminectomy was performed at L4-5 L5-S1 level on the left side. Repeat decompression was performed in between the L4-5 L5-S1 pedicles. There was significant amount of epidural scarring as well as osteophytes in the L5-S1 neural foramen. Decompression was performed until the neural foramen was wide open at both levels. Due to the extensive decompression decision was made to not reinsert the L5 pedicle screw due to the significant amount of bone removal adjacent to the pedicle. The fusion mass on the left side was exposed during the process of a hemilaminectomy at at L4-5 L5-S1 level. The fusion mass was explored and was found have visible motion indicating pseudoarthrosis at both levels. Globus MARS retractor was inserted and docked onto the L4-5 L5-S1 posterolateral gutter. Using the power drill, posterior-lateral decortication was performed at L4-5 L5-S1 level until bleeding cortical bone was identified. The remaining bone grafting material was placed into the L4-5 L5-S1 posterior lateral gutter he order to accomplish posterolateral fusion at the L4-5 L5-S1 level. Using the double C-arm technique, pedicle screws were placed into the L4 and S1 pedicle on the left side. This was done by placing the Jamshidi needle into the pedicles, then placing the guidewires over the Jamshidi needle, and finally placing the cannulated screws over the guidewires. After the pedicle screws were placed, a titanium rods was locked into the heads of the pedicle screws using locking caps and torque limiting screwdriver. 8.5 mm diameter screw was used in both L4 and S1 pedicle on the left side. Good purchase was obtained at both pedicles using the implant chosen. After all the hardware was placed, and confirmed with AP and lateral C-arm imaging, the wound was then irrigated with sterile normal saline and packed with Ray-Rohit gauze for 3 min to accomplish hemostasis. A Hemovac drain was placed deep to the lumbar fascia and was secured to the patient's skin using a 3-0 nylon suture. After the gauze was removed the deep fascia was closed with #1 Vicryl suture. The subcutaneous layer was closed with 2-0 Vicryl. The skin was closed with skin roseline. Patient tolerated the procedure well. There were no complications. Complications: none Post-operative Condition: stable Disposition: PACU Plan for aftercare: Admit to inpatient hospital
--- NOTE | 2020-11-20 16:01 | SUR.PHASEI ---
Spoke with Dr Brody. Informed of patient request for Brethren instead of Percocet as the Brethren helps better with the pain and the Percocet only makes him feel high. See new med order.
[2020-11-20] MEDS: HYDROCODONE/ACET 5/325 TABLET 1 TAB PO (16:11)
--- NOTE | 2020-11-20 16:43 | SUR.PHASEI ---
Total IVF infusion is 1700ml.
--- NOTE | 2020-11-20 16:56 | SUR.PHASEI ---
Dr Barnes notified of patient Oxygen saturation with occasional drops to 85 which then returns 97% after approx 15 seconds and patient has taken a few deep breaths. See order for RN eval and treat.
[2020-11-20] MEDS: SODIUM CHLORIDE 0.9% 1,000 ML 100 ML IV (19:07)
[2020-11-20] MEDS: HYDROCODONE/ACET 5/325 TABLET 2 TAB PO (20:39)
[2020-11-20] MEDS: ATORVASTATIN 20 MG TABLET 10 MG PO (20:45)
[2020-11-20] MEDS: SENNOSIDES 8.6 MG TABLET 17.2 MG PO (20:45)
[2020-11-20] MEDS: DOCUSATE 100 MG CAPSULE PO (20:45)
[2020-11-20] MEDS: LOSARTAN 25 MG TABLET PO (20:46)
--- NOTE | 2020-11-20 23:46 | PC.NURSE ---
A & O X4; pt reports moderate pain to back; PO 1 tab of [place]; reassessed at 09/02 pain; IS 3000; RA=94%
--- NOTE | 2020-11-21 02:46 | PC.NURSE ---
Addendum entered by Leyda Pal R.N. 11/21/20 05:06: 0410 Patient reports oximeter has been intermittently alarming. Reviewed monitor and found to have been intermittently desats into low 80's but not maintaining low. Did start on oxygen at 1L/min per NC to maintain sat > 92% and now patient reports oximeter has no longer been alarming. Was medicated at the same time for 7/10 back pain but only given 1 Vicodin per patient request; pain now down to 3/10. Original Note: Patient is alert and oriented. Breath sounds CTA with RA sat of 97%. HRR. Denied nausea. BT hypoactive and patient denied flatus as yet. Denied dysuria, frequency or urgency with urination and is voiding per urinal. Able to move self in bed and knows how to log roll appropriately Gait not assessed as patient has not yet been out of bed following surgery. Reported chronic tingling of left foot unchanged and has chronic left foot drop. Dressing to back is CDI; hemovac is intact and compressed. Stated pain was 3/10 but tolerable and declined pain medication at time of assessment; also declined ice pack. Wearing bilateral foot SCD's. Fall risk score is currently low as patient not yet out of bed.
[2020-11-21] MEDS: HYDROCODONE/ACET 5/325 TABLET 2 TAB PO ×3 (04:10→14:58)
[2020-11-21 04:15] VITALS: BP 119/79; PULSE 78; RESP 18; TEMP 36.7; O2SAT 97
[2020-11-21] MEDS: SODIUM CHLORIDE 0.9% 1,000 ML 100 ML IV (04:54)
[2020-11-21] MEDS: CEFAZOLIN 1 GM VIAL 2 GM IV (06:01)
[2020-11-21 09:15] VITALS: O2SAT 98
[2020-11-21 09:16] VITALS: BP 115/67; PULSE 69; RESP 14; TEMP 36.9; O2SAT 98
[2020-11-21] MEDS: LORATADINE 10 MG TABLET PO (09:18)
[2020-11-21] MEDS: hydroCHLOROthiazide 25 MG TABLET 12.5 MG PO (09:18)
[2020-11-21] MEDS: DOCUSATE 100 MG CAPSULE PO (09:18)
--- NOTE | 2020-11-21 09:19 | CM.DANOTE ---
DCP: Case received, EMR reviewed and met with patient. Introduced self and role. Was able to obtain information from patient regarding his baseline activity status prior to surgery. DCP assessment completed with information currently available. Patient is a70 year old male who admitted yesterday morning to the care of the orthopedist team. PCP: Dr. Gallegos. Payer: confirmed: [facility]. Patient came to the hospital via private vehicle for a surgical procedure. He had a L4-5, L5-S1 revision hemilaminectomy. Patient has history of spinal stenosis. Met with patient in his room. He is pleasant, alert and oriented, and was sitting up in bed. Confirmed with patient that he resides here in [place] with his spouse, Siria. He has been using a cane getting out of bed at baseline, and has been able to drive. He has recently gotten a FWW from [employer]. As indicated in notes, and confirmed by patient, prior to back surgery, he could not stand for very long, and he would have to sit down due to back pain. Patient also indicated that he has had back surgery before, his last one was in November. P: DCP to continue to follow for any needs. Patient will be working with P.T. He should be able to go home when he is deemed medically stable and cleared by the therapy team. Tania Ernandez RN/Chair Installer
[2020-11-21 09:20] VITALS: O2SAT 98
[2020-11-21] MEDS: MULTIVIT,CALC,MINS/IRON/FOLIC 1 TABLET 1 TAB PO (09:20)
--- NOTE | 2020-11-21 11:20 | PT.IIE ---
Current Diagnoses Spinal stenosis, lumbar region without neurogenic claudication (11/20/20) Arthrodesis status (11/20/20) Surgery Performed Operation Date: 11/20/20 14:15 Actual Procedures p L4-5, L5-S1 HWR, reinsertion, poss. PSF L4-S1, revision foramenotomies, L4-5, L5-S1(Not Applicable) - Juliet Barnes MD Medical History (Last Reviewed 11/21/20 @ 12:06 by Peter Gaona PA-C) Anxiety Exposure to COVID-19 virus (~07/2019) GERD (gastroesophageal reflux disease) HTN (hypertension) Hyperlipidemia Kidney stones PVC's (premature ventricular contractions) RBBB (right bundle branch block) Physical Therapy Inpatient Evaluation/Re-Eval M1 PT/OT-IP Prior Functional Status Start: 11/21/20 12:35 Freq: NEEDED Status: Active Protocol: Document 11/21/20 11:20 AB (Rec: 11/21/20 12:48 AB [id number]) Medical Review Prior Functional Status Medical History Reviewed Yes Communication able to make needs known Mobility and Gait pt stated that he is modified independent with all mobilities and ambulation without AD but uses a SPC at night only Social History Household Members spouse Living Arrangements House Number of Floors (Floors) One Floor Number of Stairs To Enter/Railing? 1 step to enter Home Environment High Toilet,Walk in Shower Home Equipment Four Wheel Walker,Straight Cane M2 PT-IP Current Condition Start: 11/21/20 12:35 Freq: NEEDED Status: Active Protocol: Document 11/21/20 11:20 AB (Rec: 11/21/20 12:48 AB [id number]) Physical Therapy Current Condition Current Condition Evaluation Date 11/21/20 Treatment Diagnosis s/p L4-S1 fusion; difficulty in walking Onset Date 11/20/20 Precautions Lumbar Precautions Log Roll,No Twisting,Limit Bending,Lifting Restriction of 10 lbs,Gait Belt above Incisional Area M3 PT-IP Subjective Start: 11/21/20 12:35 Freq: NEEDED Status: Active Protocol: Document 11/21/20 11:20 AB (Rec: 11/21/20 12:48 AB [id number]) Subjective Physical Therapy Visit Type Type Initial Evaluation Visit Start Time 11:20 Visit Stop Time 12:10 Total Visit Minutes 50 Number of DEVOPS ENGINEER Visits 0 Physical Therapy Visit Comments Patient Comments agreeable to do PT Therapy Pain Assessment Pain When Pain Assessed At Rest Pain Present Pain Present Pain Reported Location back Intensity 3 Scale Used Numeric (0 - 10) Pain Management Techniques Modification of Treatment,Re- positioning,Timing of Activity with Medications M4 PT-IP Mobility and Gait Start: 11/21/20 12:35 Freq: NEEDED Status: Active Protocol: Document 11/21/20 11:20 AB (Rec: 11/21/20 12:48 AB [id number]) PT-Bed Mobility Assessment Rolling Type of Rolling Log Rolling Level of Assist Standby Assistance Supine to Sit Supine to Sit Standby Assistance PT-Transfer Assessment Sit to and From Stand Sit to and from Stand Standby Assistance,Contact Guard Assistance,1 Person Assistance,Use of Upper Extremities Equipment Transfer Assistive Device Gait Belt,Front Wheeled Walker Orthotic/Prosthetic Devices or Brace: No Transfers Transfer Destination Chair Transfer Technique ambulated using FWW Transfer Ability Level of Assist Standby Assistance,Contact Guard Assistance,Use of Upper Extremities Comments Mobility Comments reviewed back precautions and log roll bed mobility. pt was able to recall precautions. BP: 116/63. completed supine to sit log roll SBA. pt was able to sit on EOB SBA. completed sit to stand CGA and cues and ambulated to the chair CGA. presents with unsteady gait and pt stated that he has ankle problems and wants to use his shoes for ambulation. c/o slight dizziness after ambulation. BP checked: 143/68. checked BP again after a few minutes rest: 138/68. assessed ambulation using 4WW and pt completed with initial CGA but able to complete with SBA. pt rested. agreed to do platform step. ambulated out towards the step using 4WW SBA and completed up/down platform step CGA. pt agreed to sit on chair and ambulated to the chair. positioned pt on chair. call light and table placed within reach. Gait Assessment Gait Gait Assistance Required: Standby Assistance,Contact Guard Assist Distance (Feet) 100 Able to Maintain Weight Bearing Status Yes During Gait Assistive Devices Assistive Device Gait Belt,4 Wheeled Walker Orthotic/Prosthetic Devices or Brace: No Gait Deviations General Gait Pattern Antalgic,Decreased Stride Length,Decreased Feet Clearance Factors Limiting Gait Function Factors Limiting Gait Function Decreased Activity Tolerance, Decreased Strength,Pain,Poor Balance Comments Gait Comments pls refer to mobility section for details Stair Climbing Assessment Evaluation Level of Assist On Stairs Contact Guard Assistance Devices Stair Climbing Assistive Devices Four Wheel Walker Technique/Endurance Stair Climbing Direction Ascend and Descend Stair Climbing Technique Step to Step Number of Steps Climbed 1 Query Text: Stair Climbing Set # Repetitions (reps) 2 PT-Balance Assessment Sitting Balance and Reactions Static Sitting Balance Ability Good Dynamic Sitting Balance Ability Good Standing Balance and Reactions Static Standing Balance Ability Fair Dynamic Standing Balance Ability Fair Device Used FWW/4WW M5 PT-IP Objective Assessments Start: 11/21/20 12:35 Freq: NEEDED Status: Active Protocol: Document 11/21/20 11:20 AB (Rec: 11/21/20 12:48 AB [id number]) Orientation Orientation/Cognition Level of Alertness Alert Orientation Name,Place,Situation Safety Awareness Understands Safety Issues Memory Description No Deficits Noted Gross Range of Motion Lower Extremity ROM Assessment Within Functional Limits Strength Lower Extremity Strength Assessment Left Impaired Ankle 3+/5 Sensation Assessment Sensation Gross Sensation Left LE Impaired Sensation Description Numbness Comments Sensation Comments c/o numbness on anterior part of L foot Muscle Tone Muscle Tone WNL Yes M6 PT-IP Treatment Start: 11/21/20 12:35 Freq: NEEDED Status: Active Protocol: Document 11/21/20 11:20 AB (Rec: 11/21/20 12:48 AB [id number]) Physical Therapy Treatment Education Education Provided Precautions,Weight Bearing Status,Post-Op Packet,Safety M7 PT-IP Assessment and Plan Start: 11/21/20 12:35 Freq: NEEDED Status: Active Protocol: Document 11/21/20 11:20 AB (Rec: 11/21/20 12:48 AB [email or web address]) PT Summary Assessment and Plan Potential Rehabilitation Potential Good Status of Condition at Evaluation Stable Summary Impairments Pain,ROM,Strength,Balance, Coordination,Sensation,Tone, Cognition,Bed Mobility, Transfers,Gait,Activity Tolerance Assessment Summary pt requiring SBA to CGA with mobility using 4WW and plans to go home with spouse to assist him. pt may go home when medically stable. will continue to assess progress. Goals Bed Mobility Goal Independent Transfer Goal Independent,Four Wheeled Walker Gait Goal Independent,Four Wheel Walker Gait Distance 200 Days to Meet Goals 5 Frequency of Treatment Frequency Of Treatment Twice a Day Treatment Plan Physical Therapy Treatment Plan Bed Mobility Training,Transfer Training,Gait Training, Therapeutic Exercise,Balance Retraining,Post Op Education, Discharge Planning,Hot or Cold Pack,Neuromuscular Re-ed, Coordination Retraining,Manual Therapy Precautions Lumbar Precautions Log Roll,No Twisting,Limit Bending,Lifting Restriction of 10 lbs,Gait Belt above Incisional Area Recommendations To Nursing Amount of Assist Needed 1 Person Assist Discharge Recommendations PT Discharge Recommendations Home with Assistance Transportation Needs at Discharge Private Vehicle
--- NOTE | 2020-11-21 11:59 | PM.PNPO.1 ---
Subjective Subjective Date Patient Seen: 11/21/20 Time Patient Seen: 07:45 Interval history: Patient's pain is moderate. Denies fever or chills. No nausea or vomiting. Patient has not yet received physical therapy this morning. Currently rounding on patient at 12:00 p.m. and is in the middle physical therapy session. Patient is sitting comfortably in bedside chair with no new complaints. Exam Vital Signs (past 8 hours): - 11/21/20 04:15 11/21/20 09:15 11/21/20 09:16 Temperature 98.0 F 98.4 F Pulse Rate 78 69 Respiratory Rate 18 14 Blood Pressure 119/79 115/67 Pulse Oximetry 97 98 98 11/21/20 09:20 Temperature Pulse Rate Respiratory Rate Blood Pressure Pulse Oximetry 98 Oxygen Delivery Method Room Air Oxygen Flow Rate 1 Narrative Exam Narrative: 70-year-old male resting comfortably in bed this morning in no acute distress. Pre rounding at 12:00 p.m. patient sitting in bedside chair in no apparent distress. Neurovascular status is intact to the bilateral lower extremities. Dressing is clean and dry. Drain is in place with set SS drainage. Drain at 110 mL yesterday 50 mL last shift. Const Orientation: alert and oriented x3 [facility] Medical History Anxiety Exposure to COVID-19 virus (~07/2019) GERD (gastroesophageal reflux disease) HTN (hypertension) Hyperlipidemia Kidney stones PVC's (premature ventricular contractions) RBBB (right bundle branch block) Surgical History History of arthroplasty of right knee (01/23/15) History of lumbar spinal fusion (12/08/19) History of vasectomy (1989) Hx of appendectomy Hx of eye surgery Hx of foot surgery (1984) Hx of laminectomy (~1989) Hx of lithotripsy Social History marital status: household members: spouse occupational status: previously employed Smoking Status: Never smoker alcohol intake: current substance use type: marijuana Assessment & Plan Post-op Postoperative Procedures: Procedures Operation Date: 11/20/20 14:15 Actual Procedure Side Surgeon p L4-5, L5-S1 HWR, reinsertion, poss. PSF L4-S1, revision foramenotomies, L4-5, L5-S1 Not Applicable Juliet Barnes MD Postoperative status: doing well Postoperative status narrative: Patient progressing as expected status post L4-L5, L5-S1 posterior segmental instrumentation removal, L4-L5 posterolateral fusion, L4-L5, L5-S1 revision hemilaminectomy with expiration of fusion.. Drain output still little high. We will recheck in the next few hours possible disposition home this evening versus tomorrow.
[2020-11-21 12:46] VITALS: BP 132/69; PULSE 77; RESP 18; TEMP 36.9; O2SAT 97
--- NOTE | 2020-11-21 13:04 | OT.IP.EVAL ---
Current Diagnoses Spinal stenosis, lumbar region without neurogenic claudication (11/21/20) Arthrodesis status (11/21/20) Surgery Performed Operation Date: 11/20/20 14:15 Actual Procedures p L4-5, L5-S1 HWR, reinsertion, poss. PSF L4-S1, revision foramenotomies, L4-5, L5-S1(Not Applicable) - Juliet Barnes MD Past Medical History (Last Reviewed 11/21/20 @ 12:06 by Peter Gaona PA-C) Anxiety Exposure to COVID-19 virus (~07/2019) GERD (gastroesophageal reflux disease) History of arthroplasty of right knee (01/23/15) History of lumbar spinal fusion (12/08/19) History of vasectomy (1989) HTN (hypertension) Hx of appendectomy Hx of eye surgery Hx of foot surgery (1984) Hx of laminectomy (~1989) Hx of lithotripsy Hyperlipidemia Kidney stones PVC's (premature ventricular contractions) RBBB (right bundle branch block) Surgical History (Last Reviewed 11/21/20 @ 12:06 by Peter Gaona PA-C) History of arthroplasty of right knee (01/23/15) History of lumbar spinal fusion (12/08/19) History of vasectomy (1989) Hx of appendectomy Hx of eye surgery Hx of foot surgery (1984) Hx of laminectomy (~1989) Hx of lithotripsy Occupational Therapy Inpatient Evaluation/Re-Eval M1 PT/OT-IP Prior Functional Status Start: 11/21/20 12:35 Freq: NEEDED Status: Active Protocol: Document 11/21/20 11:20 AB (Rec: 11/21/20 12:48 AB [email or web address]) Medical Review Prior Functional Status Medical History Reviewed Yes Communication able to make needs known Mobility and Gait pt stated that he is modified independent with all mobilities and ambulation without AD but uses a SPC at night only Social History Household Members spouse Living Arrangements House Number of Floors (Floors) One Floor Number of Stairs To Enter/Railing? 1 step to enter Home Environment High Toilet,Walk in Shower Home Equipment Four Wheel Walker,Straight Cane M1 PT/OT-IP Prior Functional Status Start: 11/21/20 13:08 Freq: NEEDED Status: Active Protocol: Document 11/21/20 13:09 [facility] (Rec: 11/21/20 13:26 [facility] [id number]) Medical Review Prior Functional Status Medical History Reviewed Yes Communication able to make needs known Mobility and Gait pt stated that he is modified independent with all mobilities and ambulation without AD but uses a SPC at night only Activities of Daily Living and IADL's Pt states was independent for ADl and IADl needs. Social History Household Members spouse Living Arrangements House Number of Floors (Floors) One Floor Number of Stairs To Enter/Railing? 1 step to enter Home Environment High Toilet,Walk in Shower Home Equipment Four Wheel Walker,Straight Cane M3 OT- IP Subjective and Pain Start: 11/21/20 13:08 Freq: Status: Active Protocol: Document 11/21/20 13:09 [facility] (Rec: 11/21/20 13:26 [facility] [id number]) OT- Subjective Occupational Therapy Visit Type Type Initial Evaluation Visit Start Time 12:44 Visit Stop Time 13:04 Total Visit Minutes 30 Occupational Therapy Visit Comments Patient Comments Pt just coming out of the bathroom when therapist came to see pt for OT eval. Patient/Caregiver Goals To go home. OT Pain Assessment Pain When Pain Assessed At Rest Pain Present Pain Present Denied Pain M4 OT- IP ADL's Start: 11/21/20 13:08 Freq: Status: Active Protocol: Document 11/21/20 13:09 [facility] (Rec: 11/21/20 13:26 [facility] [id number]) OT ADL-Grooming General Evaluation Grooming Ability Independent OT ADL-Oral Care General Eval Oral Care Ability Independent OT ADL-Dressing Comments OT Dressing Comments Pt able to do LB dressing with equipment needs. OT ADL-Toileting General Evaluation Toileting Ability Independent. Able to go over technique to lean over so able to wipe, otherwise pt may benefit from a toilet paper aid. OT ADL-Bathing Comments OT Bathing Comments Pt not wanting to shower at this time. M5 OT- IP IADL's Start: 11/21/20 13:08 Freq: Status: Active Protocol: Document 11/21/20 13:09 [facility] (Rec: 11/21/20 13:26 [facility] [id number]) OT-Instrumental Activities of Daily Living Home Safety Awareness Awareness of Need for Assistance at Home Good Awareness Ability to Problem Solve Emergency Able to Problem Solve Situations Medication Management Medication Management Comments Pt able to assist if needed. Money Management Money Management Comments Pt able to assist if needed. Meal Preparation Meal Preparation Comments Pt able to assist if needed. Mortar Mixer Operator Mortar Mixer Operator Comments Pt able to assist if needed. M6 OT- IP Functional Cognition Start: 11/21/20 13:08 Freq: Status: Active Protocol: Document 11/21/20 13:09 [facility] (Rec: 11/21/20 13:26 [facility] [id number]) Cognitive Factors Limiting Selfcare Function Cognitive Ability Level of Alertness Alert Patient Orientation Name,Place,Situation Attention Span Ability Capable of Focused Attention, Capable of Sustained Attention Ability to Follow Commands Able to Follow Multi-Step Commands Memory Description No Deficits Noted Cognitive Comments Cognitive Assessment Comments Pt intact for cognitive needs. Pt able to state and follow all back precautions. Pt needing one cue to have the FWW in front of his instead of the side for safety. OT- Vision and Hearing OT- Vision Assessment Visual Acuity Glasses All The Time M7 OT- IP Mobility and Balance Start: 11/21/20 13:08 Freq: Status: Active Protocol: Document 11/21/20 13:09 [facility] (Rec: 11/21/20 13:26 [facility] [id number]) OT-Transfer Assessment Sit to and From Stand Sit to and from Stand Standby Assistance Transfers Transfer Ability Standby Assistance Technique Transfer Destination Chair,Toilet Transfer Technique Stand Step Pivot Devices Transfer Assistive Devices None,Front Wheeled Walker Comments Mobility Comments Pt did not have a gait belt on when walking out of the bathroom when therapist OT- Gait Assessment Comments Gait Ability Comments SBA with FWW. OT- Balance Assessment Sitting Balance and Reactions Static Sitting Balance Ability Normal Dynamic Sitting Balance Ability Good Standing Balance and Reactions Static Standing Balance Ability Good Dynamic Standing Balance Ability Fair M8 OT- IP Objective Assessments Start: 11/21/20 13:08 Freq: Status: Active Protocol: Document 11/21/20 13:09 [facility] (Rec: 11/21/20 13:26 [facility] [id number]) OT Gross Range of Motion Upper Extremity Range of Motion ROM Impairments Right UE limited at end AROM. LUE WFL. OT-Muscle Tone Assessment Muscle Tone WNL Yes M9 OT- IP Assessment and Plan Start: 11/21/20 13:08 Freq: Status: Active Protocol: Document 11/21/20 13:09 [facility] (Rec: 11/21/20 13:26 [facility] [id number]) OT Summary Assessment and Plan Potential Rehabilitation Potential Excellent Analytic Complexity at Evaluation Low Summary OT Impairments Functional Mobility,Bathing Progress Towards Goals Progressing Toward Goals Assessment Summary Pt low complexity and doing well. Pt has good underestanding, demonstration of back precautions for ADl and functional mobility needs. Pt looking to go home when medically stable. Goals Bathing Goal Independent Shower Transfer Goal Independent Days to Meet Goals 2 Frequency of Treatment Frequency Of Treatment Once a Day Treatment Plan OT Treatment Plan ADL Training,Functional Mobility,Patient/Family Education,Discharge Planning Other Treatment Recommendations and Next shower Treatment Focus Discharge Recommendations OT Discharge Recommendations Home with Assistance Transportation Needs at Discharge Private Vehicle
--- NOTE | 2020-11-21 15:22 | PM.DS.1 ---
History of Present Illness History of Present Illness Date Patient Seen: 11/21/20 Time Patient Seen: 15:22 Chief complaint: OPM Narrative: 1. Hx of L4-5, L5-S1 fusion with instrumentation 2. L4-5, L5-S1 foramen stenosis with radiculopathy Procedure & Clinicians Procedure: 1. L4-5, L5-S1 posterior segmental instrumentation removal 2. L4-5, L5-S1 revision hemilaminectomy with exploration of fusion 3. L4-5 posterolateral fusion 4. L4-S1 posterior non-segmental instrumentation 5. Utilization of microsurgical technique and operating microscope Same procedure as scheduled: Yes Indications: Patient has been having chronic back pain and worsening lumbar radiculopathy. Patient had previous lumbar fusion with recent recurrence of left-sided radiculopathy failing conservative care. Patient failed multiple conservative management with worsening pain weakness and numbness in his left lower extremity. Patient has been having difficulty performing activity of daily living. After discussing risks benefits of treatment options, patient elected proceed with surgery. Surgeon: Juliet Barnes Supervisor Screen Printing: Herbert Jacome Click Yes if Unassisted: No Anesthesia Type: General Operative Notes Closure Type: primary Specimen(s): none sent Prosthetic devices, grafts, tissues, transplants, or devices: Globus revolve screws Applied: drain(s) (HV drain on the left side, sutured to patient's skin) Estimated Blood Loss (mL): 50 Blood products transfused: none Patient admitted to the hospital for the above-mentioned procedure. Patient consented to the same. Patient taken to the operating room underwent lumbar fusion. Patient back in his room recovering well as in stable condition. Patient will be discharged home today. Discharge Providers Provider Date of admission: 11/21/20 12:33 Discharge Date: 11/21/20 Primary care physician: Alejandro Gallegos MD Consults: 11/20/20 16:58 Consult to Respiratory Therapy Evaluate & Treat Comment: brief periods of drop in O2 sat on room air. Physician Instructions: Evaluate and treat 11/20/20 17:36 Consult to Occupational Therapy Evaluate & Treat Comment: Physician Instructions: Evaluate and treat Consult to Physical Therapy Evaluate & Treat Comment: Physician Instructions: Evaluate and Treat Discharge provider: Peter Gaona PA-C Exam Vital Signs (past 8 hours): - 11/21/20 09:15 11/21/20 09:16 11/21/20 09:20 Temperature 98.4 F Pulse Rate 69 Respiratory Rate 14 Blood Pressure 115/67 Pulse Oximetry 98 98 98 11/21/20 12:46 Temperature 98.4 F Pulse Rate 77 Respiratory Rate 18 Blood Pressure 132/69 Pulse Oximetry 97 Oxygen Delivery Method Room Air Oxygen Flow Rate 0 Narrative Exam Narrative: See progress note PFSH Medical History Anxiety Exposure to COVID-19 virus (~07/2019) GERD (gastroesophageal reflux disease) HTN (hypertension) Hyperlipidemia Kidney stones PVC's (premature ventricular contractions) RBBB (right bundle branch block) Surgical History History of arthroplasty of right knee (01/23/15) History of lumbar spinal fusion (12/08/19) History of vasectomy (1989) Hx of appendectomy Hx of eye surgery Hx of foot surgery (1984) Hx of laminectomy (~1989) Hx of lithotripsy Social History marital status: household members: spouse occupational status: previously employed Smoking Status: Never smoker alcohol intake: current substance use type: marijuana Discharge Assessment & Plan Assessment and Plan Assessment: Patient progressing as expected Plan of Treatment: Discharge home today in stable condition. Discharge Plan Discharge Plan Patient Disposition: Home Discharge orders & Medications Prescriptions: New acetaminophen 325 mg Tablet 650 mg PO Q6HR PRN (Reason: Pain, Mild (1-3)) Qty: 60 RF: 0 docusate sodium [DOK] 100 mg Capsule 100 mg PO BID Qty: 10 RF: 0 oxycodone 5 mg Tablet 10 mg PO Q3HR PRN (Reason: Pain, Severe (7-10)) Qty: 40 RF: 0 Continued simvastatin 10 mg Tablet 10 mg PO QPM RF: 0 alprazolam 0.25 mg Tablet 0.25 mg PO TID PRN (Reason: Anxiety) RF: 0 losartan 25 mg Tablet 25 mg PO BEDTIME RF: 0 hydrochlorothiazide 12.5 mg Capsule 12.5 mg PO DAILY RF: 0 fluticasone propionate 50 mcg/actuation Avery,Suspension 1 spray INTRANASAL DAILY RF: 0 aspirin 81 mg Tablet,Delayed Release (Dr/Ec) 81 mg PO DAILY RF: 0 loratadine [Claritin] 10 mg Tablet 10 mg PO DAILY RF: 0 omeprazole magnesium [Prilosec OTC] 20 mg Tablet,Delayed Release (Dr/Ec) 10 mg PO DAILY RF: 0 diphenhydramine-acetaminophen [Acetaminophen PM] 25-500 mg Tablet 1 tab PO BEDTIME RF: 0 Centrum Silver Men 300-600-300 mcg Tablet 1 tab PO DAILY RF: 0 Discontinued acetaminophen 500 mg Tablet 1,000 mg PO BID RF: 0 Follow up/Referrals: Juliet Barnes MD [Physician] - (2 weeks ) Alejandro Gallegos MD [Primary Care Provider] - Diet/Activity/Treatments Diet: Diet as Tolerated Activity: Limit bending, twisting, lifting Skin/Wound/Dressing Care Report to your healthcare provider any signs of infection, such as:: chills, fever, increased pain, unusual drainage and unusual redness Dressing: Keep dressing clean and dry Visit Report/Discharge Packet Instructions: DI for Prescription Opioid Use, DI for Transforaminal Lumbar Interbody Fusion Stand Alone Forms: Surgery Discharge Discharge Data Primary Care Provider: Alejandro Gallegos Attending Provider: Juliet Barnes
== END 2020-11-21 16:54 | disposition home or self-care (01) ==
LOC: OR 12:49 → AC 12:49
PROVIDERS: Admitting Provider Orthopaedic Surgery Orthopaedic Surgery of the Spine; PCP Internal Medicine; Referring Provider Orthopaedic Surgery Orthopaedic Surgery of the Spine; Visit Provider Orthopaedic Surgery Orthopaedic Surgery of the Spine
PROC: (CPT 22612; principal; 2020-11-20 14:15)
DX: M48.061 Spinal stenosis, lumbar region without neurogenic claudication (principal); Z98.1 Arthrodesis status; I10 Essential (primary) hypertension; E78.5 Hyperlipidemia, unspecified; G47.33 Obstructive sleep apnea (adult) (pediatric); E66.9 Obesity, unspecified; Z68.34 Body mass index [BMI] 34.0-34.9, adult
CPT/HCPCS: 22612; 63005; 22840; 72100; 76000; 82962; 97116; 97161; 97165; 97535; C1776; G0378; C9290; J0690; J1100; J1170; J2250; J2405; J2704; J3010

== ENCOUNTER 2021-03-16 08:15 | Outpatient (RCR) | payer OTHER, SELFPAY ==
[2020-11-20 17:43] VITALS: BMI 34.2
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
--- NOTE | 2021-01-03 14:03 | PT.OPPOC ---
Physical, Occupational & Speech Therapy At [facility] Current Diagnoses Spinal stenosis, lumbar region without neurogenic claudication (01/03/21) Postlaminectomy syndrome, not elsewhere classified (01/03/21) Arthrodesis status (01/03/21) Visit Care Team Role Provider Type Alejandro Gallegos MD Family Provider Physician Primary Care Provider Specialty: Internal Medicine Address: [address] [place] [address], [address] Email: [email or web address] Juliet Barnes MD Attending Provider Physician Referring Provider Specialty: Orthopedic Surgery Address: [address] [place] [address], [phone] Email: [email or web address] Plan Of Care PT-OP-T Assessment and Plan Start: 01/02/21 16:12 Freq: Status: Active Protocol: Document 01/03/21 08:15 MB (Rec: 01/03/21 12:14 MB [id number]) Physical Therapy Assessment Rehab Potential Rehabilitation Potential Fair Evaluation Complexity Number of Personal Factors/Comorbidities 1-2 Number of Body Systems Impaired 3 Clinical Presentation at Evaluation Evolving Impairments Impairments Activity Tolerance,Balance, Functional Activities, Functional Mobility,Gait,Pain, Posture,ROM,Sensation,Soft Tissue Mobility,Strength, Transfers Other Impairments Personal factors include s/p three spinal surgeries and increased body mass. Body systems affected include musculoskeletal, neurological and neuromuscular. His clinical presentation is evolving as his left LB and left pain con't to progress despite many surgical interventions. Other Concerns Fall Risk Yes Goals 5 Fci Goal (LTG) Pt will perform progressive HEP with I to improve flexibility, pain, strength and gait by 03/05/21. LTG Duration 8 weeks 4 Ruching Machine Operator Goal (LTG) Pt will present with improved Oswestry LBP score to no more than 30% to reflect improved back pain with functional activities by 03/05/21. LTG Duration 8 weeks 3 Ruching Machine Operator Goal (LTG) Pt will don and doff shoes and socks without equipment assist to increase I with ADLs by 03/05/21. LTG Duration 8 weeks 2 Fci Goal (LTG) Pt will perform WNLs on a standardized balance test to decrease fall risk by 03/05/21 . LTG Duration 8 weeks One Ruching Machine Operator Goal (LTG) Pt will gait train at least 1200 feet in 6 minutes with or without AD to improve community ambulation by . LTG Duration 8 weeks Assessment Summary Assessment Pt is a 70 y/o male presenting to this PT clinic for third time with left LB and left thigh pain. This is his second PT course after back surgery. His gait con't to be similarly antalgic and he reports that he feels he is going backwards with each procedure. He has recently had two lumbar surgeries and some lumbar injections. He con't with decreased LE flexibility, decrease ability to don shoes and socks, LE weakness and ongoing left LB and left anterior thigh pain. He will benefit from PT trial to see if these can be improved. Pt is very compliant with home HEP and brings in exercises from previous PT courses that include pelvic realignment, flexibility, core, intrascapular and LE strengthening and balance exercises. PT recommends possible pain specialist referral to determine if any other intervention might help his ongoing pain. Barriers to PT include two previous PT courses with similar presentation and with limited success with PT. Physical Therapy Plan Frequency and Duration Frequency of Treatment 2x/Week Duration of Treatment 8 weeks Plan of Care Start Date 01/03/21 Plan of Care End Date 03/05/21 Therapeutic Interventions Therapeutic Interventions Balance Training,Canalithic Repositioning,Gait Training, Home Exercise Program,Joint Mobilizations,Manual Therapy, Neuromuscular Re-education, Patient/Caregiver Education, Self-Care/Home Management,Soft Tissue Mobilization,Taping, Therapeutic Activities, Therapeutic Exercises, Vestibular Rehabilitation Modalities Cold Pack/Ice Massage,Hot Packs Next Visit Focus/Plan Next Note Type Treatment Note Next Visit Plan Review exercises Plan of Care Dates Plan of Care Start Date 01/03/21 Plan of Care End Date 03/05/21 Electronically Signed by: Jalyn Dinh, PT 01/03/21 [id number] Please Sign and Return: I have reviewed this Plan of Care and certify that the skilled therapy services above are required to meet the patient?s needs. Physician Signature Date Printed Name and Credentials Clinical Instructor Signature Printed Name and Credentials
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
--- NOTE | 2021-02-16 09:46 | PT.OPPOC ---
Physical, Occupational & Speech Therapy At [facility] Current Diagnoses Spinal stenosis, lumbar region without neurogenic claudication (02/16/21) Postlaminectomy syndrome, not elsewhere classified (02/16/21) Arthrodesis status (02/16/21) Visit Care Team Role Provider Type Alejandro Gallegos MD Family Provider Physician Primary Care Provider Specialty: Internal Medicine Address: [address] [place] [address], [id number] Email: [email or web address] Juliet Barnes MD Attending Provider Physician Referring Provider Specialty: Orthopedic Surgery Address: [address] [place] [address], [id number] Email: [email or web address] PT-OP-T Assessment and Plan Start: 01/02/21 16:12 Freq: Status: Active Protocol: Document 02/16/21 08:13 MB (Rec: 02/16/21 09:01 MB [id number]) Physical Therapy Assessment Rehab Potential Rehabilitation Potential Fair Evaluation Complexity Number of Personal Factors/Comorbidities 1-2 Number of Body Systems Impaired 3 Clinical Presentation at Evaluation Evolving Impairments Impairments Activity Tolerance,Balance, Functional Activities, Functional Mobility,Gait,Pain, Posture,ROM,Sensation,Soft Tissue Mobility,Strength, Transfers Other Impairments Personal factors include s/p three spinal surgeries and increased body mass. Body systems affected include musculoskeletal, neurological and neuromuscular. His clinical presentation is evolving as his left LB and left pain con't to progress despite many surgical interventions. Other Concerns Fall Risk Yes Goals 5 Wood Caulker Goal (LTG) Pt will perform progressive HEP with I to improve flexibility, pain, strength and gait by 03/25/21. 02/16/21: Pt is compliant performing progressive HEP. LTG Duration 1 month 4 Group Home Goal (LTG) Pt will present with improved Oswestry LBP score to no more than 30% to reflect improved back pain with functional activities by 03/25/21. 02/16/21: Oswestry LBP score reflects 44% impairment LTG Duration 1 month 3 Wood Caulker Goal (LTG) Pt will don and doff shoes and socks without equipment assist to increase I with ADLs by 03/25/21. 02/16/21: Goal not met. Pt con' t to have to use draw tender for donning socks and velcro shoes . LTG Duration 1 month 2 Wood Caulker Goal (LTG) Pt will perform WNLs on a standardized balance test to decrease fall risk by 03/25/21 . 02/16/21: Progressed balance exercises today: Romberg EO and EC, tandem EO in corner and pt performs with difficulty LTG Duration 1 month One Wood Caulker Goal (LTG) Pt will gait train at least 1200 feet in 6 minutes with or without AD to improve community ambulation by . 02/16/21: Pt gait trains 886 feet in 6 minutes without AD and with 06/10 is in left shoe . Pt with three episodes of scuffing left toe d/t pinching in left hip and pt has antalgic gait throughout gait and his fabien is very slow. LTG Duration 8 weeks Assessment Summary Assessment Pt has had limited progress with PT post-op. He con't with high pain, antalgic and slow gait and decreased ability to do tasks during the day. PT recommends left hip work-up for impingement vs degeneration or both. He has ongoing left thigh pain and pinching. He has very limited passive and active hip rotation in hook lying with leg straight and little ER and IR sitting to don shoes and socks. His hip is weak with gait and sit to stand. PT also recommends pain clinic referral. PT plan is for 4 more treatments over the next month to add in leg strengthening not yet added and to perform a few different Counterstrain and manual techniques. Physical Therapy Plan Frequency and Duration Frequency of Treatment 2x/Week Duration of Treatment 1 month Plan of Care Start Date 02/16/21 Plan of Care End Date 03/25/21 Therapeutic Interventions Therapeutic Interventions Balance Training,Canalithic Repositioning,Gait Training, Home Exercise Program,Joint Mobilizations,Manual Therapy, Neuromuscular Re-education, Patient/Caregiver Education, Self-Care/Home Management,Soft Tissue Mobilization,Taping, Therapeutic Activities, Therapeutic Exercises, Vestibular Rehabilitation Modalities Cold Pack/Ice Massage,Hot Packs Other Referrals/Consults Referrals/Consults Recommended Reconsult left hip for impingement, pain management consult Next Visit Focus/Plan Next Note Type Treatment Note Next Visit Plan Wall squat, possible bridge, quad strengthening in sitting, ankle strengthening in sitting--try bands Counterstrain Plan of Care Dates Plan of Care Start Date 02/16/21 Plan of Care End Date 03/25/21 Electronically Signed by: Jalyn Dinh, PT 02/16/21 0946 Please Sign and Return: I have reviewed this Plan of Care and certify that the skilled therapy services above are required to meet the patient?s needs. Physician Signature Date Printed Name and Credentials Clinical Instructor Signature Printed Name and Credentials
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
== END 2021-04-05 14:40 ==
LOC: PHYS 08:15
PROVIDERS: Family Provider Internal Medicine; PCP Internal Medicine; Referring Provider Orthopaedic Surgery Orthopaedic Surgery of the Spine; Visit Provider Orthopaedic Surgery Orthopaedic Surgery of the Spine
DX: M96.1 Postlaminectomy syndrome, not elsewhere classified (principal); M48.061 Spinal stenosis, lumbar region without neurogenic claudication; Z98.1 Arthrodesis status
CPT/HCPCS: 97110; 97112; 97116; 97140; 97161

== ENCOUNTER → 2021-04-02 11:04 | Outpatient (CLI) | payer OTHER, SELFPAY ==
[2020-11-20 17:43] VITALS: BMI 34.2
--- NOTE | 2021-04-02 11:19 | DI.CT.S_ITS ---
PROCEDURE: CT LUMBAR SPINE WO CON INDICATIONS: Spinal stenosis, lumbar region with neurogenic cla TECHNIQUE: Noncontrast 3 mm thick sections acquired from the T12 level to the sacrum. Sagittal and coronal reformats were constructed. For radiation dose reduction, the following was used: automated exposure control. 0.8 mm axial images are reformatted. COMPARISON: [facility], MR, MR LUMBAR SPINE WO CON, 07/02/2019, 16:34. [facility] [place], CR, XR LUMBAR SPINE 2 OR 3 VIEWS, 03/13/2021, 14:11. [facility], CT, CT LUMBAR SPINE WO CON, 07/12/2020, 11:38. [facility] [place], CR, XR LUMBAR SPINE 2 OR 3 VIEWS, 01/09/2021, 14:43. FINDINGS: Image quality: There is artifact associated with the metallic hardware. Bones: No acute vertebral body compression fractures. No suspicious lytic or blastic bony lesions. No pars defects. Mild levoconvex scoliotic curvature is noted. There is minimal retrolisthesis seen at the L2-L3 level and the L3-L4 level, with minimal L5-S1 anterolisthesis. Postoperative changes are seen, with bilateral pedicle screws at the L4 and S1 levels. There is a right-sided screw seen at the L5 level. The screws appear well placed. Disc spacers are seen at L4-L5 and L5-S1. Vertical fixation rods are seen. No findings of hardware failure or hardware loosening are seen. There has been removal of portions of the posterior elements. T10-T11: Gbne-si-rhvpkvpd loss of disc height is seen. Bridging endplate osteophytes are seen. Moderate bilateral neural foraminal narrowing is seen. No significant central canal narrowing is seen. T11-T12: Moderate loss of disc height is seen. Vacuum disc phenomenon is seen at this level. Mild generalized disc bulge is seen. There is moderate right-sided and moderate to severe left-sided neural foraminal narrowing seen. Mild central canal narrowing is seen. T12-L1: Mild loss of disc height is seen. Vacuum disc phenomenon is seen at this level. Mild generalized disc bulge is seen. No significant neural foraminal or central canal narrowing can be seen. Stable from the prior study. L1-L2: There is mild loss of disc height. Vacuum disc phenomenon is seen at this level. Mild to moderate disc bulge is seen, which is eccentric to the left. Mild facet joint hypertrophy is seen. There is mild right-sided and [id number]-[id number] left-sided neural foraminal narrowing seen. Mild central canal narrowing is seen. When comparison is made with the prior images, these findings are similar. L2-L3: There is mild loss of disc height seen. Vacuum disc phenomenon is seen at this level. Moderate disc bulge is seen, which is eccentric to the left side. Moderate bilateral neural foraminal narrowing is seen. No significant central canal narrowing is seen. These imaging findings have progressed compared to the prior study. L3-L4: Mild loss of disc height is seen. Vacuum disc phenomenon is seen at this level. Moderate disc bulge is seen, which is eccentric to the right side. Posteriorly projected endplate osteophytes are seen. Mild to moderate facet hypertrophy is seen. Mild to moderate bilateral neural foraminal narrowing is seen. Moderate central canal narrowing is seen. When comparison is made with the prior images, these degenerative changes are mildly progressed. L4-L5: There are postoperative changes at this level. Mild generalized disc bulge is seen. Mild to moderate bilateral neural foraminal narrowing is seen. No central canal narrowing is seen. When comparison is made with the prior images, these findings are similar. L5-S1: There are postoperative changes seen at this level. Mild generalized disc bulge is seen. There is [id number]-ic-[id number] right-sided and moderate left-sided neural foraminal narrowing seen. No significant central canal narrowing is seen. When comparison is made with the prior images, these findings are similar. Soft tissues: No retroperitoneal masses or hematomas. Visualized aorta is normal in caliber. A nonobstructing 2 mm left kidney stone can be seen, as on series 4, image 49. Colonic diverticulosis is seen, without findings of active diverticulitis. IMPRESSION: Unremarkable L4 through S1 postoperative hardware. Multiple levels of degenerative change are seen, which have mildly progressed at L2-L3 and L3-L4 compared to the prior lumbar CT. Incidental note is made of: 2 mm nonobstructing left-sided kidney stone Diverticulosis, without active diverticulitis Dictated by: Archie Muñoz M.D. on 04/02/2021 at 11:25 Approved by: Archie Muñoz M.D. on 04/02/2021 at 11:35
== END ==
PROVIDERS: Family Provider Internal Medicine; PCP Internal Medicine; Referring Provider Orthopaedic Surgery Orthopaedic Surgery of the Spine; Visit Provider Orthopaedic Surgery Orthopaedic Surgery of the Spine
DX: M48.062 Spinal stenosis, lumbar region with neurogenic claudication (principal); M47.816 Spondylosis without myelopathy or radiculopathy, lumbar region; N20.0 Calculus of kidney; K57.90 Diverticulosis of intestine, part unspecified, without perforation or abscess without bleeding; Z98.1 Arthrodesis status
CPT/HCPCS: 72131

== ENCOUNTER → 2021-05-30 09:10 | Outpatient (CLI) | payer MEDICARE, SELFPAY ==
[2020-11-20 17:43] VITALS: BMI 34.2
[2021-05-30 10:09] LABS: Add Manual Diff / Slide Review NO; Basophils Absolute Auto 0 /uL (0-100); Basophils Percent Auto 0.7 % (0-2); Eosinophils Absolute Auto 100 /uL (0-450); Eosinophils Percent Auto 2.5 % (2-4); Hematocrit 40.1 % (41-53); Lymphocytes Absolute Auto 1200 /uL (1100-4500); Lymphocytes Percent Auto 22.6 % (25-40); Mean Corpuscular Hemoglobin 33.1 PG (26-34); Mean Corpuscular Volume 94.6 fL (80-100); Monocytes Absolute Auto 500 /uL (0-900); Monocytes Percent Auto 8.7 % (3-14); Neutrophils Absolute Auto 3600 /uL (1500-7000); Neutrophils Percent Auto 65.5 % (50-75); Platelet Count 166 X10^3/uL (150-400); Red Blood Cell Count 4.24 X10^6/uL (4.5-5.9); Red Cell Distribution Width 14.3 % (11.6-14.8); White Blood Cell Count 5.5 X10^3/uL (4.5-11.0)
[2021-05-30 10:20] LABS: Hemoglobin A1C% w Est Avg Glu 5.7 % (4.0-6.0)
[2021-05-30 10:48] LABS: Appearance Urine UA CLEAR; Bilirubin Urine UA NEGATIVE (NEGATIVE); Color Urine UA YELLOW; Glucose Urine UA NEGATIVE (Negative); Ketones Urine UA NEGATIVE (NEGATIVE); Leukocyte Esterase Urine UA NEGATIVE (NEGATIVE); Nitrite Urine UA NEGATIVE (Negative); Occult Blood Urine UA NEGATIVE (Negative); Protein Urine UA NEGATIVE (Negative); Specific Gravity Urine UA 1.025 (1.000-1.035); Urobilinogen Urine UA 0.2 E.U./dL (0.2)
[2021-05-30 10:59] LABS: Bacteria Urine None Seen; Culture Indicated Urine Cult Not Indicated; Hyaline Casts Urine 0-1/LPF; Mucus Urine 2+ (Negative); RBC Urine None Seen (0-5/HPF); Squamous Epithelial Cell Urine None Seen (0-5/HPF); WBC Urine 0-1/HPF (0-5/HPF)
[2021-05-30 11:13] LABS: Alanine Aminotransferase 36 IU/L (<50); Albumin 4.3 g/dL (3.5-5.0); Albumin Globulin Ratio 1.4 (1.0-2.8); Alkaline Phosphatase 53 U/L (38-126); Aspartate Aminotransferase 29 IU/L (17-59); Bilirubin Total 0.8 mg/dL (0.2-1.3); Blood Urea Nitrogen 21 mg/dL (9-20); Calcium 9.9 mg/dL (8.4-10.2); Carbon Dioxide 25 mmol/L (22-32); Chloride 105 mmol/L (98-107); Estimated Glomerular Filt Rate > 60.0 mL/min (>60); Globulin 3.1 g/dL (1.7-4.1); Glucose 106 mg/dL (80-110); HEMOLYSIS < 15 (0-50); Potassium 4.1 mmol/L (3.4-5.1); Sodium 137 mmol/L (137-145); Total Protein 7.4 g/dL (6.3-8.2)
== END ==
PROVIDERS: Family Provider Internal Medicine; PCP Internal Medicine; Referring Provider Orthopaedic Surgery; Visit Provider Orthopaedic Surgery
DX: Z01.818 Encounter for other preprocedural examination (principal); N39.0 Urinary tract infection, site not specified; Z01.812 Encounter for preprocedural laboratory examination; R73.9 Hyperglycemia, unspecified
CPT/HCPCS: 36415; 80053; 81001; 83036; 85025; 93005; 93010

== ENCOUNTER → 2021-07-16 09:11 | Outpatient (CLI) | payer MEDICARE, SELFPAY ==
[2020-11-20 17:43] VITALS: BMI 34.2
[2021-07-16 11:17] LABS: COVID19 -Nasal RAPID Negative (Negative)
== END ==
PROVIDERS: Family Provider Internal Medicine; PCP Internal Medicine; Visit Provider Family Medicine Sleep Medicine
DX: Z20.822 Contact with and (suspected) exposure to COVID-19 (principal)
CPT/HCPCS: 87635; C9803

== ENCOUNTER → 2021-08-27 09:24 | Outpatient (CLI) | payer OTHER, SELFPAY ==
[2020-11-20 17:43] VITALS: BMI 34.2
[2021-08-27 13:12] LABS: COVID19 -Nasal RAPID Negative (Negative)
== END ==
PROVIDERS: Family Provider Internal Medicine; PCP Internal Medicine; Visit Provider Family Medicine Sleep Medicine
DX: Z20.822 Contact with and (suspected) exposure to COVID-19 (principal)
CPT/HCPCS: 87635; C9803

== ENCOUNTER 2021-08-28 12:13 | Day surgery (SDC) | payer OTHER, SELFPAY ==
[2020-11-20 17:43] VITALS: BMI 34.2
[2021-08-22 12:29] VITALS: BMI 31.6
[2021-08-28] VITALS (10 sets, daily range): BP systolic 109–153; BP diastolic 67–83; PULSE 79–94; RESP 12–18; TEMP 35.9–37.2; O2SAT 95–98; BMI 31.6
--- NOTE | 2021-08-28 | DI.RAD.S_ITS ---
PROCEDURE: XR PELVIS 1-2V INDICATIONS: LEFT TOTAL HIP TECHNIQUE: Intra-operative view of the pelvis and hip acquired. COMPARISON: None. FINDINGS: Bones: Intraoperative devices prior to placement of arthroplasty prostheses are in expected positions. No fractures or suspicious bony lesions. Soft tissues: Overlying surgical retractors are present, along with other intraoperative changes. IMPRESSION: Intraoperative left hip arthroplasty. Dictated by: Brandi Contreras M.D. on 08/28/2021 at 16:15 Approved by: Brandi Contreras M.D. on 08/28/2021 at 16:16
--- NOTE | 2021-08-28 12:05 | DI.RAD.S_ITS ---
PROCEDURE: XR HIP W PEL IF DONE LT 2V INDICATIONS: sherri TECHNIQUE: AP pelvis and lateral view of the left hip acquired. COMPARISON: [facility], CR, XR HIP W PEL IF DONE BILAT 2V, 01/05/2019, 10:05. FINDINGS: Bones: Patient is status post total left hip hip arthroplasty, with hardware components in expected positions. The hip joint appears congruent. The visualized bony structures appear intact. Soft tissues: Overlying postoperative changes are noted. No suspicious soft tissue densities. IMPRESSION: Expected immediate postoperative appearance, status post total left hip arthroplasty. Dictated by: Mihir Yu M.D. on 08/28/2021 at 17:03 Approved by: Mihir Yu M.D. on 08/28/2021 at 17:03
[2021-08-28] MEDS: ACETAMINOPHEN 325 MG TABLET 975 MG PO (13:12)
[2021-08-28] MEDS: CELECOXIB 200 MG CAPSULE PO (13:13)
[2021-08-28] MEDS: PREGABALIN 75 MG CAPSULE PO (13:14)
[2021-08-28] MEDS: LACTATED RINGERS 1,000 ML 84 ML IV ×2 (13:16→15:21)
[2021-08-28] MEDS: VANCOMYCIN 1,000 MG/200 ML PIGGYBACK 200 MG IV (13:39)
--- NOTE | 2021-08-28 14:14 | P.HP_ITS ---
History of Present Illness History of Present Illness Date Patient Seen: 08/28/21 Time Patient Seen: 14:14 Chief complaint: Incapacitating left hip pain Narrative: This 71-year-old with a history of several spine operations including a fusion notes incapacitating left hip pain. He is brought the operating for left total hip arthroplasty. His x-rays showed severe left hip osteoarthritis. He previously was scheduled for surgery and has been moved several times due to the pandemic. Patient History Medical History Anxiety Exposure to COVID-19 virus (~07/2019) GERD (gastroesophageal reflux disease) HTN (hypertension) Hyperlipidemia Kidney stones PVC's (premature ventricular contractions) RBBB (right bundle branch block) Surgical History History of arthroplasty of right knee (01/23/15) History of lumbar spinal fusion (12/08/19) History of lumbar spinal fusion (11/20/20) History of vasectomy (1989) Hx of appendectomy Hx of eye surgery Hx of foot surgery (1984) Hx of laminectomy (~1989) Hx of lithotripsy Family & Social History Social History: household members spouse Prior Living Arrangements House Safety & Behavioral: Feels Safe in Current Yes Environment Been Physically Hurt or No Threatened By a Person Suicidal Ideation Description None Suicide Plan Description No Plan Tobacco & Substance use: Tobacco type cannabis/marijuana Smoking Status Never smoker alcohol intake current alcohol intake frequency a few times a month Substance Use Type marijuana Meds Home Medications and Allergies Home Medications Medication Instructions Recorded Confirmed Type alprazolam 0.25 mg tablet 0.25 mg PO TID PRN 12/02/19 08/28/21 History aspirin 81 mg tablet,delayed 81 mg PO DAILY 12/02/19 08/28/21 History release fluticasone propionate 50 1 spray INTRANASAL DAILY 12/02/19 08/28/21 History mcg/actuation nasal spray,suspension hydrochlorothiazide 12.5 mg capsule 12.5 mg PO DAILY 12/02/19 08/28/21 History loratadine 10 mg tablet (Claritin) 10 mg PO DAILY 12/02/19 08/28/21 History losartan 25 mg tablet 25 mg PO BEDTIME 12/02/19 08/28/21 History omeprazole magnesium 20 mg 10 mg PO DAILY 12/02/19 08/28/21 History tablet,delayed release (Prilosec OTC) simvastatin 10 mg tablet 10 mg PO QPM 12/02/19 08/28/21 History ajtnilrh-fqi-xxqpe acid 300 1 tab PO DAILY 11/20/20 08/28/21 History mcg-lycopene 600 mcg-lutein 300 mcg tablet (Centrum Silver Men) acetaminophen 325 mg tablet 650 mg PO Q6HR PRN #60 tab 11/21/20 08/28/21 Rx Allergies Allergy/AdvReac Type Severity Reaction Status Date / Time enoxaparin Allergy Severe Large band Verified 08/28/21 12:53 of erythema, rash around torso Review of Systems Review of Systems Narrative: He notes he has some chronic numbness and pain into the left foot and some mild weakness. He denies any other new problems. No recent heart or lung problems. Exam Vital Signs (past 8 hours): - 08/28/21 12:57 Temperature 97.0 F L Pulse Rate 79 Respiratory Rate 18 Blood Pressure 153/73 H Pulse Oximetry 96 Oxygen Delivery Method Room Air Narrative Exam Narrative: HEENT is benign, he is alert he is oriented he is appropriate his lungs are clear cor regular rate and rhythm abdomen soft and benign examination of his r ight lower extremity shows a well-healed scar on the right knee with good range of motion, his left lower extremity shows severe pain with attempted range of motion in his left hip. He has some dysesthetic sensation in the left foot on the medial aspect of the left foot and weakness of his EHL, his calf is soft and benign Assessment & Plan Assessment and plan (1) Osteoarthritis of left hip: Status: Acute Plan He has severe left hip osteoarthritis. I have recommended left total hip arthroplasty. The plan is for a posterior approach. He has a history of a spine fusion and has some residual left leg numbness and weakness. Procedure alternatives risks benefits and complications were discussed in detail. He understands and agrees in order to proceed with a left total hip arthroplasty. Assessment & Plan narrative: Left total hip arthroplasty for severe left hip arthritis. Time Spent With Patient Critical Care time: I spent a total of [] minutes of critical care time on this patient's care today; this time is exclusive of procedural time.
--- NOTE | 2021-08-28 14:21 | P.OP_ITS ---
Operative Date/Time/Diagnoses Date of procedure: 08/28/21 Time of procedure: 15:00 Pre-op diagnosis: Left hip osteoarthritis Post-op diagnosis: same Procedure & Clinicians Procedure: Left total hip arthroplasty posterior approach Same procedure as scheduled: Yes Indications: The patient has had progressively worsening left hip pain with radiographic changes consistent with arthritis. Non-operative management has failed and the patient has requested total hip replacement. The risks, benefits and alternatives to surgery were discussed with the patient prior to proceeding. Risks discussed included, but were not limited to, failure to relieve pain, leg length discrepancy, dislocation, stiffness, infection, nerve damage, deep venous thrombosis, pulmonary embolism, stroke, coma, heart attack, permanent paralysis and , as well as the potential need for eventual revision of the prosthetic. Surgeon: Deanna Barger Carpet Winder: Karissa Rosas Anesthesia Type: General and Spinal Operative Notes Findings: Severe left hip osteoarthritis, stiff hip, adequate stability Closure Type: primary Specimen(s): none sent Prosthetic devices, grafts, tissues, transplants, or devices: [employer]ger [employer]hew anthology size 58, neutral poly liner 36, size 11 high offset anthology, +0 36 mm head, one 15 mm x 6.5 mm screw Applied: drain(s) Estimated Blood Loss (mL): 250 Blood products transfused: none Procedure in detail: The patient was seen in the pre-operative area, where the patient identified the left hip as the operative site and this was marked with my initials. The patient received pre-operative antibiotics and was taken to the operating room and placed on the operative table in the right lateral decubitus position after satisfactory anesthesia. A full stack engineer out was performed. The left leg was prepared from the ankle to the iliac crest with ChloroPrep in the usual fashion and draped through sterile drapes. The hip was approached through an approximately 20 cm incision centered over the greater trochanter and curving gently posteriorly as it went proximally. This was carried sharply to the fascia francisco, which was divided and retracted with a self retaining retractor. The trochanteric bursa was excised with care being taken to avoid the sciatic nerve, which was identified and protected throughout the case. The short external rotators were incised and the capsulomuscular flap was raised and tagged for later repair. The hip was dislocated, and a femoral neck osteotomy performed approximately 15 mm above the lesser trochanter. Retractors were placed around the femur. The canal was opened with a box cutting osteotome, followed by a T handled reamer and a lateralizing reamer. The chili pepper broach was then used, followed by sequential broaching until there was good stability of the broach in the femur. Retractors were placed to expose the acetabulum. The labrum and central soft tissues were removed. Reaming was performed initially going up in 2 mm i ncrements, then 1 mm increments until good bite was obtained with an odd sized reamer. The cup 1 mm larger than the last reamer was then inserted using the appropriate anteversion guides. A trial neutral liner was placed. The broach was placed in the canal. A trial head and neck were then placed and the hip relocated and checked for leg length and stability. An intraoperative film confirmed the component position and no evidence of fracture. The patient was stable in the position of sleep, of squatting, and could be put through a range of motion with 45 degrees internal rotation without dislocation. At 90 degrees flexion, internal rotation to 70?was possible before dislocation. This was felt to be satisfactory and the appropriate components were opened, and the trials were removed. The cup was further stabilized with a single screw. The acetabular liner was impacted into position. The final stem was then impacted into the prepared femoral canal. A brief Betadine soak was performed while trialing with head options. The hip was meticulously irrigated with normal saline. Finally the femoral head was impacted onto the stem. The acetabulum was cleared of all material and the hip relocated one final time. The capsulomuscular flap was then repaired to the greater trochanter though an awl hole using the tag sutures. The short external rotators were repaired with a nonabsorbable suture. A deep drain was placed and brought out anteriorly. The fascia francisco was closed with Vicryl. The subcutaneous layer was closed with barbed sutures and surgical glue. An Aquacel Ag dressing was applied and the patient was taken to recovery having tolerated the procedure well. Complications: none Post-operative Condition: stable Disposition: Acute Care Plan for aftercare: The patient will be maintained on a standard total hip replacement protocol with weight bearing as tolerated and posterior hip precautions. The patient will receive Aspirin and sequential compression devices for DVT prophylaxis. The patient will be discharged home when safe for the home environment.
[2021-08-28] MEDS: CEFAZOLIN 2 GM/20 ML SYRINGE IV (14:45)
[2021-08-28] MEDS: TRANEXAMIC ACID 1,000 MG VIAL 2000 MG INJ ×2 (14:45→16:09)
--- NOTE | 2021-08-28 15:01 | SUR.OPER ---
Lateral on padded OR bed. Gel axillary roll. Arms secured on padded armboard with pillow supporting top arm. Padded hip positioner braces x4 - anterior and posterior chest and pelvis. Additional gel pad used anterior pelvis. Gel pad under bottom leg from knee to foot and secured with tape over sheet.
[2021-08-28] MEDS: SODIUM CHLORIDE IRRIG SOLUTION 250 ML, POVIDONE-IODINE SPONGE STICKS 1 APPLIC IRR (15:11)
[2021-08-28] MEDS: BUPIVACAINE LIPOSOME 266 MG/20 ML VIAL INJ (15:11)
[2021-08-28] MEDS: BUPIVACAINE 0.25% (PF) 60 ML, EPINEPHrine 0.3 MG INJ (15:12)
[2021-08-28] MEDS: LACTATED RINGERS 1,000 ML 125 ML IV (17:34)
[2021-08-28] MEDS: ATORVASTATIN 20 MG TABLET 10 MG PO (20:45)
[2021-08-28] MEDS: IBUPROFEN 400 MG TABLET PO (20:46)
[2021-08-28] MEDS: LOSARTAN 25 MG TABLET PO (20:46)
[2021-08-28] MEDS: ASPIRIN EC 81 MG TABLET PO (20:49)
[2021-08-28] MEDS: ACETAMINOPHEN 325 MG TABLET 650 MG PO (20:50)
[2021-08-28] MEDS: DOCUSATE 100 MG CAPSULE PO (20:50)
[2021-08-29] VITALS: BP 122/79; PULSE 76; RESP 18; TEMP 36.6; O2SAT 97
[2021-08-29] MEDS: CEFAZOLIN 2 GM/20 ML SYRINGE IV ×2 (00:19→05:59)
[2021-08-29] MEDS: IBUPROFEN 400 MG TABLET PO ×3 (00:19→08:54)
[2021-08-29] MEDS: LACTATED RINGERS 1,000 ML 125 ML IV (00:20)
--- NOTE | 2021-08-29 00:25 | RT ---
pt does not use cpap at home , no home oxygen , no home regime
[2021-08-29 04:50] VITALS: BP 104/72; PULSE 74; RESP 18; TEMP 36.4; O2SAT 96
[2021-08-29 05:09] LABS: Hematocrit 35.9 % (41-53); Hemoglobin 12.2 g/dL (13.5-17.5)
[2021-08-29] MEDS: PANTOPRAZOLE DR 20 MG TABLET PO (05:10)
--- NOTE | 2021-08-29 08:13 | PM.DS.1 ---
History of Present Illness History of Present Illness Date Patient Seen: 08/29/21 Time Patient Seen: 08:13 Chief complaint: Incapacitating left hip pain Narrative: Operative Date/Time/Diagnoses Date of procedure: 08/28/21 Time of procedure: 15:00 Pre-op diagnosis: Left hip osteoarthritis Post-op diagnosis: same Procedure & Clinicians Procedure: Left total hip arthroplasty posterior approach Same procedure as scheduled: Yes Indications: The patient has had progressively worsening left hip pain with radiographic changes consistent with arthritis. Non-operative management has failed and the patient has requested total hip replacement. The risks, benefits and alternatives to surgery were discussed with the patient prior to proceeding. Risks discussed included, but were not limited to, failure to relieve pain, leg length discrepancy, dislocation, stiffness, infection, nerve damage, deep venous thrombosis, pulmonary embolism, stroke, coma, heart attack, permanent paralysis and , as well as the potential need for eventual revision of the prosthetic. Surgeon: Deanna Barger Adjunct Sociology Professor: Karissa Rosas Anesthesia Type: General and Spinal Operative Notes Findings: Severe left hip osteoarthritis, stiff hip, adequate stability Closure Type: primary Specimen(s): none sent Prosthetic devices, grafts, tissues, transplants, or devices: Barger [employer]hew anthology size 58, neutral poly liner 36, size 11 high offset anthology, +0 36 mm head, one 15 mm x 6.5 mm screw Applied: drain(s) Estimated Blood Loss (mL): 250 Blood products transfused: none Discharge Providers Provider Discharge Date: 08/29/21 Primary care physician: Tano Sorenson MD Consults: 08/28/21 12:05 Consult to Anesthesiology Routine Comment: Consulting Provider: Anesthesiologist Reason for consultation: Regional block for post operative pain control 08/28/21 17:14 Consult to Discharge Planning Routine Comment: Consult to Physical Therapy Evaluate & Treat Comment: Physician Instructions: post op CHRISTOS protocol Consult to Respiratory Therapy Evaluate & Treat Comment: Physician Instructions: Evaluate and treat Discharge provider: Nkechi Jean PA-C Summary Hospital Course Discharge Diagnosis: s/p L TKA Hospital Course: Mr Pedro'patricia hospital course was unremarkable. On POD# 1 he was feeling well and wanted to go home. He was having difficulty voiding and was started on tamsulosin. He denied N/V. His pain was well-controlled with oral medication. He was evaluated by PT prior to discharge. Exam Vital Signs (past 8 hours): - 08/29/21 04:50 Temperature 97.5 F L Pulse Rate 74 Respiratory Rate 18 Blood Pressure 104/72 Pulse Oximetry 96 Oxygen Delivery Method Room Air Oxygen Flow Rate 0 Narrative Exam Narrative: 3/5 dorsiflexion on left - this was present prior to surgery. 4/5 hip flexion on left; 5/5 quadriceps, hamstrings, PF, EHL. Sensation to light touch intact throughout BLE. Calves soft, compressible, nontender and without palpable cords or masses. Objective Labs Result Diagrams: 08/29/21 04:48 Labs: Laboratory Results - last 24 hr 08/29/21 04:48 Hgb 12.2 L Hct 35.9 L PFSH Medical History Anxiety Exposure to COVID-19 virus (~07/2019) GERD (gastroesophageal reflux disease) HTN (hypertension) Hyperlipidemia Kidney stones PVC's (premature ventricular contractions) RBBB (right bundle branch block) Surgical History History of arthroplasty of right knee (01/23/15) History of lumbar spinal fusion (12/08/19) History of lumbar spinal fusion (11/20/20) History of vasectomy (1989) Hx of appendectomy Hx of eye surgery Hx of foot surgery (1984) Hx of laminectomy (~1989) Hx of lithotripsy Social History marital status: household members: spouse occupational status: previously employed Smoking Status: Never smoker alcohol intake: current substance use type: marijuana Discharge Assessment & Plan Assessment and Plan Assessment: POD# 1 s/p left total hip arthroplasty. Acute anemia d/t expected surgical blood loss. Acute urinary retention. Plan of Treatment: Discharge with multimodal pain control, ASA 81 mg BID x 6 weeks for VTE prophylaxis, outpt PT. Tamsulosin PRN. Discharge Plan Discharge Plan Patient Disposition: Home Discharge orders & Medications Discharge Orders: Discharge (Order); Ordered 08/29/21 Ordered By: Nkechi Jean Prescriptions: New aspirin 81 mg Tablet,Delayed Release (Dr/Ec) 81 mg PO BID Qty: 90 0RF docusate sodium 100 mg Capsule 100 mg PO BID PRN (Reason: constipation) Qty: 60 2RF hydrocodone-acetaminophen 5-325 mg Tablet 1 tab PO Q4HR PRN (Reason: pain, severe) Qty: 60 0RF ibuprofen 400 mg Tablet 400 mg PO Q4HR Qty: 180 2RF tamsulosin [Flomax] 0.4 mg Capsule 0.4 mg PO DAILY PRN (Reason: urinary retention) Qty: 30 0RF Continued simvastatin 10 mg Tablet 10 mg PO QPM 0RF alprazolam 0.25 mg Tablet 0.25 mg PO TID PRN (Reason: Anxiety) 0RF losartan 25 mg Tablet 25 mg PO BEDTIME 0RF hydrochlorothiazide 12.5 mg Capsule 12.5 mg PO DAILY 0RF fluticasone propionate 50 mcg/actuation [place],Suspension 1 spray INTRANASAL DAILY 0RF loratadine [Claritin] 10 mg Tablet 10 mg PO DAILY 0RF omeprazole magnesium [Prilosec OTC] 20 mg Tablet,Delayed Release (Dr/Ec) 10 mg PO DAILY 0RF Centrum Silver Men 300-600-300 mcg Tablet 1 tab PO DAILY 0RF Discontinued aspirin 81 mg Tablet,Delayed Release (Dr/Ec) 81 mg PO DAILY 0RF acetaminophen 325 mg Tablet 650 mg PO Q6HR PRN (Reason: Pain, Mild (1-3)) Qty: 60 0RF Follow up/Referrals: Tano Sorenson MD [Primary Care Provider] - Deanna Barger MD [Physician] - As previously scheduled (Follow up with Karissa Rosas PA-C, on 09/11/2021 @ 4:00 pm at [facility] in [place].) Diet/Activity/Treatments Diet: Diet as Tolerated Activity: Walk frequently. Posterior hip precautions. Cold/Heat Therapy: Ice to hip as needed for pain. Skin/Wound/Dressing Care Report to your healthcare provider any signs of infection, such as:: chills, fever, night sweats, unusual drainage and unusual redness Dressing: May shower. Leave dressing in place until follow up in office. No bathing or otherwise soaking incision. Visit Report/Discharge Packet Instructions: DI for Hip Replacement Stand Alone Forms: Surgery Discharge Discharge Data Primary Care Provider: Tano Sorenson Attending Provider: Deanna Barger Quality VTE Deep Vein Thrombosis/Pulmonary Embolism Present on Admission: No
[2021-08-29 08:30] VITALS: BP 132/72; PULSE 91; RESP 16; TEMP 36.6; O2SAT 98
[2021-08-29] MEDS: HYDROCODONE/ACET 5/325 TABLET 1 TAB PO (08:53)
[2021-08-29] MEDS: VIT C/E/ZN/COPPR/LUTEIN/ZEAXAN CAPSULE 1 CAP PO (08:53)
[2021-08-29] MEDS: hydroCHLOROthiazide 25 MG TABLET 12.5 MG PO (08:53)
[2021-08-29] MEDS: TAMSULOSIN 0.4 MG CAPSULE PO ×2 (08:53→09:05)
[2021-08-29] MEDS: ACETAMINOPHEN 325 MG TABLET 650 MG PO (08:53)
[2021-08-29] MEDS: DOCUSATE 100 MG CAPSULE PO (08:54)
[2021-08-29] MEDS: ASPIRIN EC 81 MG TABLET PO (08:54)
[2021-08-29] MEDS: FLUTICASONE 120 SPRAY/16 GM SPRAY.SUSP NASAL (08:54)
[2021-08-29] MEDS: LORATADINE 10 MG TABLET PO (08:54)
--- NOTE | 2021-08-29 09:15 | PT.IIE ---
Current Diagnoses Unilateral primary osteoarthritis, left hip (08/28/21) Presence of unspecified artificial hip joint (08/28/21) Surgery Performed Operation Date: 08/28/21 14:15 Actual Procedures p Total Hip Arthroplasty, left(Left) - Deanna Barger MD Medical History (Last Reviewed 08/28/21 @ 14:15 by Deanna Barger MD) Anxiety Exposure to COVID-19 virus (~07/2019) GERD (gastroesophageal reflux disease) HTN (hypertension) Hyperlipidemia Kidney stones PVC's (premature ventricular contractions) RBBB (right bundle branch block) Physical Therapy Inpatient Evaluation/Re-Eval M1 PT/OT-IP Prior Functional Status Start: 08/29/21 12:39 Freq: NEEDED Status: Active Protocol: Document 08/29/21 09:15 AB (Rec: 08/29/21 13:02 AB [email or web address]) Medical Review Prior Functional Status Medical History Reviewed Yes Communication able to make needs known Mobility and Gait pt stated that he is modified independent with all mobilities and ambulation using SPC but occasionally without AD Social History Household Members spouse Living Arrangements House Number of Floors (Floors) One Floor Number of Stairs To Enter/Railing? 1 step to enter Home Environment High Toilet,Walk in Shower Home Equipment Grab Bars Near Toilet M2 PT-IP Current Condition Start: 08/29/21 12:39 Freq: NEEDED Status: Active Protocol: Document 08/29/21 09:15 AB (Rec: 08/29/21 13:02 AB [email or web address]) Physical Therapy Current Condition Current Condition Evaluation Date 08/29/21 Treatment Diagnosis s/p L CHRISTOS posterior approach; difficulty in walking Onset Date 08/28/21 M3 PT-IP Subjective Start: 08/29/21 12:39 Freq: NEEDED Status: Active Protocol: Document 08/29/21 09:15 AB (Rec: 08/29/21 13:02 AB [email or web address]) Subjective Physical Therapy Visit Type Type Initial Evaluation Visit Start Time 09:15 Visit Stop Time 10:15 Total Visit Minutes 60 Number of LANDSCAPING SUPERVISOR Visits 0 Physical Therapy Visit Comments Patient Comments agreeable to do PT Therapy Pain Assessment Pain When Pain Assessed At Rest Pain Present Pain Present Pain Reported Location Left Hip Intensity 3 Scale Used Numeric (0 - 10) Pain Management Techniques Distraction,Modification of Treatment,Re-positioning, Timing of Activity with Medications M4 PT-IP Mobility and Gait Start: 08/29/21 12:39 Freq: NEEDED Status: Active Protocol: Document 08/29/21 09:15 AB (Rec: 08/29/21 13:02 AB [id number]) PT-Bed Mobility Assessment Supine to Sit Supine to Sit Standby Assistance Sit to Supine Sit to Supine Standby Assistance PT-Transfer Assessment Sit to and From Stand Sit to and from Stand Standby Assistance,Contact Guard Assistance Equipment Transfer Assistive Device Gait Belt,Front Wheeled Walker Orthotic/Prosthetic Devices or Brace: No Transfers Transfer Destination Chair Transfer Technique Stand Step Pivot Transfer Ability Level of Assist Standby Assistance,Contact Guard Assistance,Use of Upper Extremities Comments Mobility Comments pt sitting on chair. educated pt on posterior hip precautions. pt was able to recall. BP in sittin/72. completed sit to stand CGA and max cues for techniques. pt able to stand CGA using FWW for support. BP checked: 106 /72. c/o lightheadedness. checked BP again after 2 min: 100/70. pt tolerated 2 more min of standing and BP checked again: 97/69. instructed pt to sit back down. educated on sit<>stand techniques and pt repeated x 4 and completed initially with CGA but SBA towards the end. ambulated to the EOB using FWW min A and cues. (+) LOB requiring min A . pt stated that he had previous R foot surgery and is painful with weight bearing if he does not have his shoes on and that made him unsteady. BP sitting on EOB after transfers: 110/77. pt completed sit<>supine SBA and cues. completed sit to stand SBA and ambulated in the hallway and completed up/down platform step using FWW CGA. repeated x 2. cued on first attempt but able to complete without cues on 2nd attempt. ambulated more in the hallway ~ 50 ft using FWW SBA. ambulated back to his room and sat on chair. postiioned on chair. Pt without any other concerns. declined caregiver training and stated that spouse will be able to assist. call light and table placed within reach. Gait Assessment Gait Gait Assistance Required: Standby Assistance,Contact Guard Assist Distance (Feet) 50 Able to Maintain Weight Bearing Status Yes During Gait Assistive Devices Assistive Device Gait Belt,Front Wheeled Walker Orthotic/Prosthetic Devices or Brace: No Gait Deviations General Gait Pattern Antalgic,Decreased Stride Length,Decreased Feet Clearance,Step-to Gait Factors Limiting Gait Function Factors Limiting Gait Function Decreased Activity Tolerance, Decreased Strength,Limited Range of Motion,Pain,Poor Balance,Poor Safety Awareness Stair Climbing Assessment Evaluation Level of Assist On Stairs Contact Guard Assistance Devices Stair Climbing Assistive Devices Front Wheel Walker Technique/Endurance Stair Climbing Direction Ascend and Descend Number of Steps Climbed 1 Query Text: Stair Climbing Set # Repetitions (reps) 2 PT-Balance Assessment Sitting Balance and Reactions Static Sitting Balance Ability Normal Dynamic Sitting Balance Ability Good Standing Balance and Reactions Static Standing Balance Ability Fair Dynamic Standing Balance Ability Fair Device Used FWW M5 PT-IP Objective Assessments Start: 08/29/21 12:39 Freq: NEEDED Status: Active Protocol: Document 08/29/21 09:15 AB (Rec: 08/29/21 13:02 [email or web address]) Orientation Orientation/Cognition Level of Alertness Alert Orientation Name,Age,Place,Situation Language Function Ability No Deficits Noted Safety Awareness Understands Safety Issues Memory Description No Deficits Noted Gross Range of Motion Lower Extremity ROM Assessment Within Functional Limits Strength Lower Extremity Strength Assessment Left Impaired Hip 3+/5 Knee 4-/5 Coordination Assessment Gross Coordination Gross Coordination WNL Sensation Assessment Sensation Gross Sensation WNL Muscle Tone Muscle Tone WNL Yes M6 PT-IP Treatment Start: 08/29/21 12:39 Freq: NEEDED Status: Active Protocol: Document 08/29/21 09:15 AB (Rec: 08/29/21 13:02 [email or web address]) Physical Therapy Treatment Education Education Provided Precautions,Weight Bearing Status,Post-Op Packet,Safety M7 PT-IP Assessment and Plan Start: 08/29/21 12:39 Freq: NEEDED Status: Active Protocol: Document 08/29/21 09:15 AB (Rec: 08/29/21 13:02 [email or web address]) PT Summary Assessment and Plan Potential Rehabilitation Potential Good Status of Condition at Evaluation Stable Summary Impairments Pain,ROM,Strength,Balance, Coordination,Sensation,Tone, Cognition,Bed Mobility, Transfers,Gait,Activity Tolerance Assessment Summary pt requiring SBA to CGA with mobility using FWW and plans to go home and spouse to assist. pt has outpt PT set up. pt may go home when medically stable. Goals Bed Mobility Goal Independent Transfer Goal Independent,Front Wheeled Walker Gait Goal Independent,Front Wheel Walker Gait Distance 250 Days to Meet Goals 3 Frequency of Treatment Frequency Of Treatment Twice a Day Treatment Plan Physical Therapy Treatment Plan Bed Mobility Training,Transfer Training,Gait Training, Therapeutic Exercise,Balance Retraining,Post Op Education, Discharge Planning,Hot or Cold Pack,Neuromuscular Re-ed, Coordination Retraining,Manual Therapy Precautions Posterior Hip Precautions No Hip Flexion > 90 degrees,No Hip Internal Rotation,No Hip Adduction Weight Bearing Status Weight Bearing Status Weight Bear as Tolerated Allowed Weight Bearing Amount (enter % LLE WBAT or #) (%) Recommendations To Nursing Amount of Assist Needed Standby Assistance Discharge Recommendations PT Discharge Recommendations Home with Assistance, Outpatient PT Transportation Needs at Discharge Private Vehicle
--- NOTE | 2021-08-29 11:13 | CM.DANOTE ---
Patient is a 71 yo male who was admitted on 08/28/21 for LTHA. Pt has [facility] for insurance and his PCP is Dr. Tano Sorenson. EMR was reviewed. Per Ortho , pt tolerated procedure well and to work with PT. Per Ortho YOVANA, pt medically stable to likely d/c home later today pending PT eval and recommendations. SW met bedside with pt and explained role right as he was finishing working with PT for initial eval and PT confirms that pt did well and recommending home with FWW and spouse assist and outpt PT. No PM session needed prior to d/c. Pt confirms he lives in [place] with spouse and is quick active and independent at baseline and spouse available for assist at d/c. Pt denies any hx of HH or SNF and states he has outpt PT already set up and denies any concerns with d/c other than he still needs to void independently. Pt tolerated his diet and had breakfast this morning and states he feels much better. Pt still has drain currently in but will likely d/c now that pt participated in therapy. Pt states spouse plans to arrive bedside soon and they obtained the walker already and have the pwk with precautions and information from Ortho. Plan: SW to follow for likely d/c home today via spouse POV and outpt PT already set up pending pt's ability to independently void. No SW needs at this time, please refer if indicated. TICO Michel Discharge Planning/Care Management CM Discharge Assessment Start: 08/29/21 11:11 Freq: Status: Active Protocol: Document 08/29/21 11:12 [facility] (Rec: 08/29/21 11:13 [id number]) Discharge Planning Assessment Assigned Clinical Program Manager TICO Fitzgerald DPOA/Assigned Designee Name spouse Advance Directives? Yes Advance Directives on File Yes History Provided By Patient,Medical Record Has Patient been admitted in last 30 No days? Prior Living Arrangements House Household Members spouse Type of transporation used prior to Drives own vehicle admit Independent with ADL's Yes Is patient alert and oriented? Yes Caregiver for Another No Community Services used prior to Physical Therapy admission: DME Already Rented / Owned FWW / Walker Patient/Family Preference OP PT Therapy Barriers to Discharge No Discharge Plan Home Community Services Physical Therapy Transportation Arrangement Spouse, Siria. Referrals Initiated None needed Whiteboard Updated in Patient Room with Yes name and ext. # of Clinical Program Manager Review Status In Process Please Provide Date Initial DC 08/29/21 Assessment Was Performed Next Review Type Continued Stay Review Pre-Anesthesia Assessment Start: 06/19/21 09:49 Freq: Status: Active Protocol: Document 08/22/21 12:29 [facility] (Rec: 06/19/21 09:53 [facility] [id number]) Pre-Anesthesia Assessment PAC Comment Pt is s/p TLIF 11/20/20. He declines PAC phone assessment. He reports no changes to medical/medication history, has no questions/concerns with upcoming surgery. Chart review only Preferred Name Jose Roberto Patient Information Reviewed Via Chart Review Diagnostic Results BMP/CMP,CBC,EKG,Urinalysis Comment Labs/ECG @ [facility] 05/30/21, COVID screen @ [facility] 08/27/21 Primary Care Provider Alejandro Gallegos Seen Specialist in Last 12 Months Yes Specialist Seen Orthopedist Primary Language Danish Preferred Language Danish Combine Driver Required No Height 187.96 cm Weight 111.584 kg Body Mass Index (BMI) 31.6 Hearing Ability Normal Visual Assist Glasses Dentition Type Teeth, Natural Present,Dental Implants Barriers to Learning None Hx Anesthesia Reactions Yes: Hypotension s/p RT TKA , hypoxia s/p back surgery 12/08/19 Hx Family Anesthesia Reaction No Hx Malignant Hyperthermia No Hx Blood Transfusions No Board Of Directors No alcohol intake current alcohol intake frequency a few times a month Smoking Status Never smoker Tobacco type cannabis/marijuana Substance Use Type marijuana Comment Pt previously advised not to smoke marijuana 24 hours prior to surgery Pain Present Pain Reported Musculoskeletal Symptoms Abnormal Gait,Back Pain, Difficulty Walking,Joint Pain, Numbness,Radiating Pain into Limb,Tingling History of Falling (Recent or History of No ) Patient is completely paralyzed or No completely immobile Prosthesis or Orthotic Device Cane Mental Status Oriented to own ability Is patient on oxygen? No Does patient have SAINZ/SOB No Hx Sleep Apnea No CPAP/BIPAP use not prescribed Currently Taking a Beta Kacie No Can You Climb a Flight of Stairs Without Yes SOB Hx Chest Pain No Hx SOB No Hx Syncope or Dizziness No Anti-Coagulant Therapy No Has a Application Trainer No Cardiac Testing No Hx Pacemaker/ICD No Pacemaker Rep Required? No Diet Type At Home Regular dysphagia No Gastrointestinal Symptoms Reflux Urinary Catheter Present No Hx Urinary Self Catheterization No Diabetes No HgbA1C 5.7 Date 05/30/21 Hx Drug Resistant Organism No Presence of External or Internal Medical Yes: Rt knee prosthesis, tooth Devices implant, lumbar hardware Marital Status Lives With spouse Prior Living Arrangements House Number of Floors (Floors) One Floor Support System Spouse Does the Patient Have Assistance After Yes Surgery Patient Discharge Plan Description Return Home Feels Safe in Current Environment Yes Been Physically Hurt or Threatened By a No Person in Current Environment Do you have thoughts of harming yourself None or others? Are you currently considering suicide? No Do you have a plan to hurt yourself or No Plan others? Do You Have Any Spiritual Beliefs That No May Affect Your HC Choices? Do You Have Any Cultural Practices That No May Affect Your HC Choices? Who Can We Speak to About Patient's Care Family, friends Identifying Code for Release of Patient Declines to issue Information Health Care Proxy/Next of Kin Siria () Health Care Proxy Emergency Contact Name Siria () Emergency Contact Advance Directives? Yes Advance Directives on File Yes Power of Senior Ux Designer Yes Power of Senior Ux Designer Name Siria () Power of Senior Ux Designer Stop Bang Assessment Do you snore loudly (louder than talking Yes or loud enough to be heard through closed doors) Do you often feel tired, fatigued or No sleepy during the daytime Has anyone ever observed you stop No breathing while sleeping? Do you have, or are you being treated Yes for, high blood pressure Is your BMI more than 35 kg/m2 Yes Age over 50 Yes Estimated neck circumference greater Yes than 40cm or 16in Gender male Yes Result Positive
[2021-08-29 11:50] VITALS: BP 120/69; PULSE 94; RESP 16; TEMP 36.8; O2SAT 96
--- NOTE | 2021-08-29 14:34 | PC.NURSE ---
Patient teaching done with patient and at bedside. All questions and concerns addressed. IV d/c'd, patient tolerated well. Patient escorted down to personal vehicle via wheelchair, VSS, patient left in stable condition.
== END 2021-08-29 14:35 | disposition home or self-care (01) ==
LOC: OR 12:16 → AC 12:21
PROVIDERS: Family Provider Internal Medicine; PCP Internal Medicine; Referring Provider Orthopaedic Surgery; Visit Provider Orthopaedic Surgery
PROC: 0SRB0JZ Replacement of Left Hip Joint with Synthetic Substitute, Open Approach (ICD-10-PCS; CPT 27130; principal; 2021-08-28 14:15)
DX: M16.12 Unilateral primary osteoarthritis, left hip (principal); I10 Essential (primary) hypertension; E78.5 Hyperlipidemia, unspecified
CPT/HCPCS: 27130; 36415; 72170; 73502; 85014; 85018; 97116; 97161; 97530; C1776; C9290; J0171; J0690; J1100; J2250; J2274; J2405; J2704; J3010

== ENCOUNTER → 2021-09-07 13:08 | Outpatient (CLI) | payer OTHER, SELFPAY ==
[2021-08-28 17:41] VITALS: BMI 31.6
--- NOTE | 2021-09-07 13:10 | DI.US.S_ITS ---
Caution: Report not yet finalized and possibly incomplete! PROCEDURE: US PERIPH VENOUS LOW EXTREM LT INDICATIONS: PAIN/EDEMA 10 DAYS POST LEFT HIP AUG TECHNIQUE: Real-time imaging, as well as color and pulse Doppler interrogation, were performed of the lower extremity deep veins from the inguinal ligament to the popliteal fossa. COMPARISON: None. FINDINGS: The common femoral, femoral and popliteal veins are normally compressible, and free of intraluminal thrombus. Color and pulse Doppler demonstrate normal phasic intraluminal flow. There is normal augmentation response to distal compression maneuver. IMPRESSION: No deep venous thrombosis identified within the left lower extremity. Dictated by: David Callahan [facility] Interpreted: Mihir Yu MD on 09/07/2021 at 15:03 Transcribed by: CHRISTIANO on 09/07/2021 at 15:03
--- NOTE | 2021-09-07 14:36 | DI.US.S_ITS ---
PROCEDURE: US PERIPH VENOUS LOW EXTREM LT INDICATIONS: PAIN/EDEMA 10 DAYS POST LEFT HIP AUG TECHNIQUE: Real-time imaging, as well as color and pulse Doppler interrogation, were performed of the lower extremity deep veins from the inguinal ligament to the popliteal fossa. COMPARISON: None. FINDINGS: The common femoral, femoral and popliteal veins are normally compressible, and free of intraluminal thrombus. Color and pulse Doppler demonstrate normal phasic intraluminal flow. There is normal augmentation response to distal compression maneuver. IMPRESSION: No deep venous thrombosis identified within the left lower extremity. Dictated by: David Callahan [facility] Interpreted: Mihir Yu MD on 09/07/2021 at 15:03 Transcribed by: CHRISTIANO on 09/07/2021 at 15:03 Approved by: Mihir Yu M.D. on 09/07/2021 at 16:19
== END ==
PROVIDERS: Family Provider Internal Medicine; PCP Internal Medicine; Referring Provider Orthopaedic Surgery; Visit Provider Orthopaedic Surgery
DX: M79.662 Pain in left lower leg (principal); R60.0 Localized edema
CPT/HCPCS: 93971

== ENCOUNTER 2021-12-18 14:30 | Outpatient (RCR) | payer OTHER, SELFPAY ==
[2020-11-20 17:43] VITALS: BMI 34.2
--- NOTE | 2021-06-19 12:32 | PT.OIE ---
Current Diagnoses Unilateral primary osteoarthritis, left hip (06/19/21) Past Medical History (Last Reviewed 11/21/20 @ 12:06 by Peter Gaona PA-C) Anxiety Exposure to COVID-19 virus (~07/2019) GERD (gastroesophageal reflux disease) History of arthroplasty of right knee (01/23/15) History of lumbar spinal fusion (12/08/19) History of lumbar spinal fusion (11/20/20) History of vasectomy (1989) HTN (hypertension) Hx of appendectomy Hx of eye surgery Hx of foot surgery (1984) Hx of laminectomy (~1989) Hx of lithotripsy Hyperlipidemia Kidney stones PVC's (premature ventricular contractions) RBBB (right bundle branch block) Past Surgical History (Last Updated 06/19/21 @ 09:54 by Amaris Montez RN) History of arthroplasty of right knee (01/23/15) History of lumbar spinal fusion (12/08/19) History of lumbar spinal fusion (11/20/20) History of vasectomy (1989) Hx of appendectomy Hx of eye surgery Hx of foot surgery (1984) Hx of laminectomy (~1989) Hx of lithotripsy Visit Care Team Role Provider Type Tano Sorenson MD Family Provider Non-Staff Primary Care Provider Specialty: Internal Medicine Address: [address] [place] [address], [facility] Email: Deanna Barger MD Attending Provider Physician Referring Provider Specialty: Orthopedic Surgery Address: [address] [place] [address], [facility] Email: [email or web address] Physical Therapy Initial Evaluation PT-OP-A Visit Information Start: 06/12/21 14:07 Freq: Status: Active Protocol: Document 06/19/21 10:30 MB (Rec: 06/19/21 10:44 MB [id number]) Out-Patient Physical Therapy Visit Information Visit Information Visit Type Initial Evaluation Visit Note Premera BC MCR 06/13 before KX Visit Start Time 10:30 Visit Stop Time 11:15 Total Visit Minutes 45 Visit Number 1 Evaluation Information Evaluation Date 06/19/21 PT-OP-B Current Condition Start: 06/12/21 14:07 Freq: Status: Active Protocol: Document 06/19/21 10:30 MB (Rec: 06/19/21 10:44 MB [id number]) Current Condition History of Current Condition Onset Date Progressive chronic Current Complaints Left sided hip pain History of Current Condition Pt has a history of two back surgeries in 2 1/2 years. He had ongoing left hip pain after both surgeries and PT had suspected underlying hip pathology. He finally got an appointment with Dr. Barger in March of 2021. He has a left THR scheduled on 06/26/2021 . He will have an posterior approach per handout in folder but pt does not recall what kind he will have. PMH: right foot surgery, right TKR, three lumbar surgeries including two fusions and left foot neuropathy. Pt is getting a RW at [facility]. He has a walk-in shower. He does not have a seat. He has two small steps and a threshold to get in the house or a threshold. There is no railing. Prior Treatments and Tests PT after back surgeries Treatment Goals Patient/Caregiver Goals Decrease left hip pain and improve his mobility PT-OP-C Subjective Start: 06/12/21 14:07 Freq: Status: Active Protocol: Document 06/19/21 10:30 MB (Rec: 06/19/21 10:44 MB [id number]) OP-PT Subjective Patient Comments Patient Comments See history of current condition Patient Reported Progress Worse PT-OP-G Mobility & Gait Start: 06/12/21 14:07 Freq: Status: Active Protocol: Document 06/19/21 10:30 MB (Rec: 06/19/21 12:20 MB [id number]) OP Gait Assessment Comments Gait Comments Pt presents with antalgic gait with cane in his right hand. Gait is slow and with decreased step-through. He favors his left leg. His gait is improved wtih RW and he is going to pick one up from [facility] after PT evaluation. PT-OP-K Range of Motion Start: 06/12/21 14:07 Freq: Status: Active Protocol: Document 06/19/21 10:30 MB (Rec: 06/19/21 12:22 MB [id number]) Hip Goniometric Range of Motion Hip ROM Limitations Comments Functional assessment only today d/t amount of training that needs to go into 45 minute eval and pre-op training: decreased left hip movement compared to the right with HS, gait, bed mobility and transfers and pt exhibits guarding behavior PT-OP-M Strength Start: 06/12/21 14:07 Freq: Status: Active Protocol: Document 06/19/21 10:30 MB (Rec: 06/19/21 12:22 MB [id number]) Hip Strength Hip Manual Muscle Testing Bilateral Comments Functional assessment only today d/t amount of training that needs to go into 45 minute eval and pre-op training: decreased left hip movement compared to the right with HS, gait, bed mobility and transfers and pt exhibits guarding behavior PT-OP-Q Treatments Start: 06/12/21 14:07 Freq: Status: Active Protocol: Document 06/19/21 10:30 MB (Rec: 06/19/21 12:19 MB [id number]) Therapeutic Exercises Supine Exercises CHRISTOS Post-op HEP Supine Exercise Name AP, GS, QS, hip abduction and adduction to neutral, HS Comments Provided handouts and pt performs each exercise Therapeutic Activity Therapeutic Activity Bed mobility and sit to stands maintaining posterior hip precautions Comments Ed pt in no hip flexion greater than 90 deg, no IR/ER with WB and no crossing legs. Carryover to bed positioning with pillow between legs with side lying and moving side lying to sit and with supine lying. Ed pt in sit to stand using UE support on bed and standing up to walker Gait Training Gait Activity Gait training with RW Comments Step-to left then right foot gait training with walker forward (move walker first, then left then right) and then reverse for retropulsion until he is able to perform step-through fabien. Ed in ascending platform with walker for safe home entry PT-OP-T Assessment and Plan Start: 06/12/21 14:07 Freq: Status: Active Protocol: Document 06/19/21 10:30 MB (Rec: 06/19/21 12:32 MB [id number]) Physical Therapy Assessment Rehab Potential Rehabilitation Potential Good Evaluation Complexity Number of Personal Factors/Comorbidities 1-2 Number of Body Systems Impaired 1-2 Clinical Presentation at Evaluation Evolving Impairments Impairments Activity Tolerance,Balance, Functional Activities, Functional Mobility,Gait,Pain, Posture,ROM,Sensation,Soft Tissue Mobility,Strength, Transfers Other Impairments Personal factors include greater that two years of pain and decreased mobility after back surgeries and d/t left hip pain. Posterior hip precautions and guarding could be a provoker of back pain post-op. Body systems affected include musculoskeletal and neuromuscular. His clinical presentation is evolving until he is stable post-op. Other Concerns Fall Risk Yes Goals 5 Exterior Door Installer Goal (LTG) Pt will gait train at least 1200 feet in 6 minutes with or without AD to improve community ambulation by . LTG Duration 8 weeks 4 Senior Living Goal (LTG) Pt will present WNLs on a standardized balance test to decrease fall risk by 08/17/21. LTG Duration 8 weeks 3 Senior Living Goal (LTG) Pt will perform progressive HEP with I including pelvic realignment, strengthening, balance and gait to improve quality of life and function by 08/17/21. LTG Duration 8 weeks 2 Senior Living Goal (LTG) Pt will perform 10 reps sit to stand without UE support in 30 sec to demonstrate improved functional hip strength by . LTG Duration 8 weeks 1 Impairment LEF score reflects 70% impairment Exterior Door Installer Goal (LTG) Pt will present with an improved LEF score to reflect no more than 30% impairment to reflect improved function and mobility by 08/17/21. LTG Duration 8 weeks Assessment Summary Assessment Pt is a 70 y/o male known to this PT from three previous PT courses post-op lumbar surgeries. Pt con't with residual left hip pain after the lumbar surgeries and he has finally gotten in with an orthopedic surgeon and is scheduled for a left CHRISTOS next week. Per notes, pt will undergo posterior approach. Precautions reviewed today and PT is a little concerned about posterior approach d/t pt's height and size and that he enjoys spending time in his sailboat, which is a cramped space for his height and size. The precautions may irritate his back as well and PT will con't to encourage pt in mobility and body mechanics. Reviewed post-op exercises today, posterior hip precautions, transfers, bed mobility and gait with the walker. Further range and strength and gait assessments can be performed post-op. Pt is very compliant with PT and as far as it depends on him, will do a fantastic job with PT post-op. Physical Therapy Plan Frequency and Duration Frequency of Treatment 2x/Week Duration of Treatment 8 weeks Plan of Care Start Date 06/19/21 Plan of Care End Date 08/17/21 Therapeutic Interventions Therapeutic Interventions Aquatic Therapy,Balance Training,Gait Training,Home Exercise Program,Joint Mobilizations,Manual Therapy, Neuromuscular Re-education, Patient/Caregiver Education, Self-Care/Home Management,Soft Tissue Mobilization,Taping, Therapeutic Activities, Therapeutic Exercises Modalities Cold Pack/Ice Massage,Hot Packs Next Visit Focus/Plan Next Note Type Progress Note Next Visit Plan Post-op progress note
--- NOTE | 2021-06-19 12:32 | PT.OPPOC ---
Physical, Occupational & Speech Therapy At [facility] Current Diagnoses Unilateral primary osteoarthritis, left hip (06/19/21) Visit Care Team Role Provider Type Tano Sorenson MD Family Provider Non-Staff Primary Care Provider Specialty: Internal Medicine Address: [address] [place] [address], [id number] Email: Deanna Barger MD Attending Provider Physician Referring Provider Specialty: Orthopedic Surgery Address: [address] [place] [address], [id number] Email: [email or web address] Plan Of Care PT-OP-T Assessment and Plan Start: 06/12/21 14:07 Freq: Status: Active Protocol: Document 06/19/21 10:30 MB (Rec: 06/19/21 12:32 MB [id number]) Physical Therapy Assessment Rehab Potential Rehabilitation Potential Good Evaluation Complexity Number of Personal Factors/Comorbidities 1-2 Number of Body Systems Impaired 1-2 Clinical Presentation at Evaluation Evolving Impairments Impairments Activity Tolerance,Balance, Functional Activities, Functional Mobility,Gait,Pain, Posture,ROM,Sensation,Soft Tissue Mobility,Strength, Transfers Other Impairments Personal factors include greater that two years of pain and decreased mobility after back surgeries and d/t left hip pain. Posterior hip precautions and guarding could be a provoker of back pain post-op. Body systems affected include musculoskeletal and neuromuscular. His clinical presentation is evolving until he is stable post-op. Other Concerns Fall Risk Yes Goals 5 Body Maker Goal (LTG) Pt will gait train at least 1200 feet in 6 minutes with or without AD to improve community ambulation by . LTG Duration 8 weeks 4 Body Maker Goal (LTG) Pt will present WNLs on a standardized balance test to decrease fall risk by 08/17/21. LTG Duration 8 weeks 3 Alf Goal (LTG) Pt will perform progressive HEP with I including pelvic realignment, strengthening, balance and gait to improve quality of life and function by 08/17/21. LTG Duration 8 weeks 2 Alf Goal (LTG) Pt will perform 10 reps sit to stand without UE support in 30 sec to demonstrate improved functional hip strength by . LTG Duration 8 weeks 1 Impairment LEF score reflects 70% impairment Body Maker Goal (LTG) Pt will present with an improved LEF score to reflect no more than 30% impairment to reflect improved function and mobility by 08/17/21. LTG Duration 8 weeks Assessment Summary Assessment Pt is a 70 y/o male known to this PT from three previous PT courses post-op lumbar surgeries. Pt con't with residual left hip pain after the lumbar surgeries and he has finally gotten in with an orthopedic surgeon and is scheduled for a left CHRISTOS next week. Per notes, pt will undergo posterior approach. Precautions reviewed today and PT is a little concerned about posterior approach d/t pt's height and size and that he enjoys spending time in his sailboat, which is a cramped space for his height and size. The precautions may irritate his back as well and PT will con't to encourage pt in mobility and body mechanics. Reviewed post-op exercises today, posterior hip precautions, transfers, bed mobility and gait with the walker. Further range and strength and gait assessments can be performed post-op. Pt is very compliant with PT and as far as it depends on him, will do a fantastic job with PT post-op. Physical Therapy Plan Frequency and Duration Frequency of Treatment 2x/Week Duration of Treatment 8 weeks Plan of Care Start Date 06/19/21 Plan of Care End Date 08/17/21 Therapeutic Interventions Therapeutic Interventions Aquatic Therapy,Balance Training,Gait Training,Home Exercise Program,Joint Mobilizations,Manual Therapy, Neuromuscular Re-education, Patient/Caregiver Education, Self-Care/Home Management,Soft Tissue Mobilization,Taping, Therapeutic Activities, Therapeutic Exercises Modalities Cold Pack/Ice Massage,Hot Packs Next Visit Focus/Plan Next Note Type Progress Note Next Visit Plan Post-op progress note Plan of Care Dates Plan of Care Start Date 06/19/21 Plan of Care End Date 08/17/21 Electronically Signed by: Jalyn Dinh PT 06/19/21 0597 Please Sign and Return: I have reviewed this Plan of Care and certify that the skilled therapy services above are required to meet the patient?s needs. Physician Signature Date Printed Name and Credentials Clinical Instructor Signature Printed Name and Credentials
--- NOTE | 2021-09-03 13:18 | PT.OPPOC ---
Physical, Occupational & Speech Therapy At [facility] Current Diagnoses Unilateral primary osteoarthritis, left hip (09/03/21) Visit Care Team Role Provider Type Tano Sorenson MD Family Provider Non-Staff Primary Care Provider Specialty: Internal Medicine Address: [address] [place] [address], [id number] Email: Deanna Barger MD Attending Provider Physician Referring Provider Specialty: Orthopedics Orthopedic Surgery Address: [address] [place] [address], [id number] Email: [email or web address] Plan Of Care PT-OP-T Assessment and Plan Start: 06/12/21 14:07 Freq: Status: Active Protocol: Document 09/03/21 12:53 [facility] (Rec: 09/05/21 08:14 [facility] [id number]) Physical Therapy Assessment Goals 5 Short Term Goal (STG) Pt will be able to walk 1 mile w/o inc pain greater than 4/ 10 STG Duration 11/03/21 [facility] Goal (LTG) Pt will be able to walk on trails w/walking sticks as needed w/o inc pain more than 2/10. LTG Duration 12/03/21 4 Short Term Goal (STG) Pt will score at least 25/30 on FGA to show improved balance to dec fall risk STG Duration 11/03/21 [employer] Super[employer] Goal (LTG) Pt will be able to go sailing on boat and go biking w/o concern for balance or have pain. LTG Duration 12/03/21 3 Short Term Goal (STG) Pt will be indep w/HEP fro strength, balance, gait and flexiblity. STG Duration 10/12/21 [employer] Super[employer] Goal (LTG) Pt will score at least 4+/5 BLE MMT to show improved strength to allow for improved functional ability and return to higher level activities. LTG Duration 12/03/21 2 [employer] Pow[employer] Supervisor Goal (LTG) Pt will perform 10 reps sit to stand without UE support in 30 sec to demonstrate improved functional hip strength and balance. LTG Duration 12/03/21 1 Impairment 15/80 Short Term Goal (STG) Pt will present with an improved LEFS score to at least 30/80 to show improved functional ability. STG Duration 10/22/21 [facility] Goal (LTG) Pt will present with an improved LEFS score to at least 55/80 to show improved functional ability. LTG Duration 12/03/21 Assessment Summary Assessment Pt presents 6 days s/p L post approach CHRISTOS with overaall good pain control and mobility . He has had inc swelling of LLE and brusing around L hip , but does feel that his legs are more even in length now. he is very motivated to return to further activity again as pt used to be more active. He has history of R TKA which is giving him some discomfort now and 2 lumbar surgeries with overall weakness in LEs, impaired posture and dec balance/stabiltiy. He would beneift from skilled PT to address these deficits. Physical Therapy Plan Frequency and Duration Frequency of Treatment 2x/Week Duration of Treatment 3 months Plan of Care Start Date 09/03/21 Plan of Care End Date 12/03/21 Therapeutic Interventions Therapeutic Interventions Aquatic Therapy,Balance Training,Gait Training,Home Exercise Program,Joint Mobilizations,Manual Therapy, Neuromuscular Re-education, Patient/Caregiver Education, Self-Care/Home Management,Soft Tissue Mobilization,Taping, Therapeutic Activities, Therapeutic Exercises Modalities Cold Pack/Ice Massage,Electric Stimulation,Hot Packs Next Visit Focus/Plan Next Note Type Treatment Note Next Visit Plan leg press, upright bike, work on gait and attempt cane use, heel raises, standing knee flex, sidestep, balance on foam, review exercises as needed Plan of Care Dates Plan of Care Start Date 09/03/21 Plan of Care End Date 12/03/21 Electronically Signed by: Cherelle Masters, PT 09/05/21 0818 Please Sign and Return: I have reviewed this Plan of Care and certify that the skilled therapy services above are required to meet the patient?s needs. Physician Signature Date Printed Name and Credentials Clinical Instructor Signature Printed Name and Credentials
--- NOTE | 2021-09-03 13:18 | PT.OTRE ---
Current Diagnoses Unilateral primary osteoarthritis, left hip (09/03/21) Past Medical History (Last Reviewed 08/28/21 @ 14:15 by Deanna Barger MD) Anxiety Exposure to COVID-19 virus (~07/2019) GERD (gastroesophageal reflux disease) History of arthroplasty of right knee (01/23/15) History of lumbar spinal fusion (12/08/19) History of lumbar spinal fusion (11/20/20) History of vasectomy (1989) HTN (hypertension) Hx of appendectomy Hx of eye surgery Hx of foot surgery (1984) Hx of laminectomy (~1989) Hx of lithotripsy Hyperlipidemia Kidney stones PVC's (premature ventricular contractions) RBBB (right bundle branch block) Surgical History (Last Reviewed 08/28/21 @ 14:15 by Deanna Barger MD) History of arthroplasty of right knee (01/23/15) History of lumbar spinal fusion (12/08/19) History of lumbar spinal fusion (11/20/20) History of vasectomy (1989) Hx of appendectomy Hx of eye surgery Hx of foot surgery (1984) Hx of laminectomy (~1989) Hx of lithotripsy Visit Care Team Role Provider Type Tano Sorenson MD Family Provider Non-Staff Primary Care Provider Specialty: Internal Medicine Address: [address] [place] [address], [id number] Email: Deanna Barger MD Attending Provider Physician Referring Provider Specialty: Orthopedics Orthopedic Surgery Address: [address] [place] [address], [address] Email: [email or web address] Physical [facility] Re-Evaluation PT-OP-A Visit Information Start: 06/12/21 14:07 Freq: Status: Active Protocol: Document 09/03/21 12:53 [facility] (Rec: 09/05/21 08:14 [facility] [id number]) Out-Patient Physical Therapy Visit Information Visit Information Visit Type Re-Evaluation Visit Note 06/04 Visit Start Time 11:19 Visit Stop Time 12:02 Total Visit Minutes 43 Visit Number 2 Number of CIRCULATION MAN Visits 0 PT-OP-B Current Condition Start: 06/12/21 14:07 Freq: Status: Active Protocol: Document 09/03/21 12:53 [facility] (Rec: 09/05/21 08:17 [facility] [id number]) Current Condition History of Current Condition Onset Date 08/28/21 Current Complaints L CHRISTOS History of Current Condition 09/03: Pt had L post approach CHRISTOS and is taking pain meds to manage pain. he does feel that his legs are more even in length after L CHRISTOS. He has been compliant w/exercises. He was concerned about swelling but does note he has been sitting in dependent position a lot. IE:Pt has a history of two back surgeries in 2 1/2 years. He had ongoing left hip pain after both surgeries and PT had suspected underlying hip pathology. He finally got an appointment with Dr. Barger in March of 2021. He has a left THR scheduled on 06/26/2021 . He will have an posterior approach per handout in folder but pt does not recall what kind he will have. PMH: right foot surgery, right TKR, three lumbar surgeries including two fusions and left foot neuropathy. Pt is getting a RW at [facility]. He has a walk-in shower. He does not have a seat. He has two small steps and a threshold to get in the house or a threshold. There is no railing. Treatment Goals Patient/Caregiver Goals be able to sail on boat, go for walks including trails, get back to biking (possibly getting electric), be able to exercise to lose wt PT-OP-C Subjective Start: 06/12/21 14:07 Freq: Status: Active Protocol: Document 09/03/21 12:53 [facility] (Rec: 09/05/21 08:14 [facility] [id number]) Patient Questionnaires Lower Extremity Functional Scale LEFS Score 15/80 OP-PT Pain Assessment Location L hip Pain Location Details ant hip/lat/post hip Intensity 7 Scale Used @ worst 8/10 Frequency Daily Pain Aggravating Factors Standing,Walking Other Pain Aggravating Factors vertical time, evenings worst Pain Alleviating Factors Cold,Medication Other Pain Alleviating Factors walking after stationary PT-OP-G Mobility & Gait Start: 06/12/21 14:07 Freq: Status: Active Protocol: Document 09/03/21 12:53 [facility] (Rec: 09/05/21 08:14 [facility] [id number]) OP Mobility Evaluation Bed Mobility Supine to and from Sit indep Transfers Sit to Stand pt kicks LLE out in front to avoid 90 deg for sit<>stand OP Gait Assessment Comments Gait Comments Pt amb w/FWW with dec LLE stance time and push off. PT-OP-J Posture/Palpation/Skin Start: 06/12/21 14:07 Freq: Status: Active Protocol: Document 09/03/21 12:53 [facility] (Rec: 09/05/21 08:14 [facility] [id number]) Posture Evaluation Comments Posture Comments fwd flexed trunk Skin Assessment Other Assessments Skin Assessment Comments swelling of LLE and brusiing around L hip PT-OP-K Range of Motion Start: 06/12/21 14:07 Freq: Status: Active Protocol: Document 06/19/21 10:30 [facility] (Rec: 06/19/21 12:22 [facility] [id number]) Hip Goniometric Range of Motion Hip ROM Limitations Comments Functional assessment only today d/t amount of training that needs to go into 45 minute eval and pre-op training: decreased left hip movement compared to the right with HS, gait, bed mobility and transfers and pt exhibits guarding behavior PT-OP-M Strength Start: 06/12/21 14:07 Freq: Status: Active Protocol: Document 09/03/21 12:53 [facility] (Rec: 09/05/21 08:14 [facility] [id number]) Hip Strength Hip Manual Muscle Testing Right Flexion (L2) 4- Good- External Rotation 4 Good Internal Rotation 5 Normal Left Flexion (L2) 3+ Fair+ External Rotation 3- Fair- Internal Rotation 3+ Fair+ Comments IR tested in neutral position and hip flex w/pt leaned back into hands to avoid pt going greater than 90 deg hip flex Knee Strength Knee Manual Muscle Testing Right Flexion (S2) 5 Normal Extension (L3) 5 Normal Left Flexion (S2) 4- Good- Extension (L3) 3 Fair Ankle/Foot Strength Ankle and Foot Manual Muscle Testing Left Dorsiflexion (L4) 4- Good- Plantarflexion (S1) 4- Good- Right Dorsiflexion (L4) 5 Normal Plantarflexion (S1) 5 Normal Comments seated PF testing B PT-OP-Q Treatments Start: 06/12/21 14:07 Freq: Status: Active Protocol: Document 09/03/21 12:53 [facility] (Rec: 09/05/21 08:17 [facility] [id number]) Therapeutic Exercises Supine Exercises CHRISTOS Post-op HEP Supine Exercise Name AP, GS, QS, hip abduction and adduction to neutral, heel slides Side left Reps/Minutes 10 ea Self-Care/Home Management Treatment Education Other Education edu to pt to cont icing, edu to avoid long periods in dependent position and talk to re: compression stockingt o help w/swelling. Edu to start doing small walks in driveway as tolerated. Pt trialed w/4WW and did well with gait so given clearance to get 4WW to use for gait PT-OP-T Assessment and Plan Start: 06/12/21 14:07 Freq: Status: Active Protocol: Document 09/03/21 12:53 [facility] (Rec: 09/05/21 08:14 [facility] [id number]) Physical Therapy Assessment Goals 5 Short Term Goal (STG) Pt will be able to walk 1 mile w/o inc pain greater than 4/ 10 STG Duration 11/03/21 [employer] Goal (LTG) Pt will be able to walk on trails w/walking sticks as needed w/o inc pain more than 2/10. LTG Duration 12/03/21 4 Short Term Goal (STG) Pt will score at least 25/30 on FGA to show improved balance to dec fall risk STG Duration 11/03/21 [employer] Goal (LTG) Pt will be able to go sailing on boat and go biking w/o concern for balance or have pain. LTG Duration 12/03/21 3 Short Term Goal (STG) Pt will be indep w/HEP fro strength, balance, gait and flexiblity. STG Duration 10/12/21 [employer] Goal (LTG) Pt will score at least 4+/5 BLE MMT to show improved strength to allow for improved functional ability and return to higher level activities. LTG Duration 12/03/21 2 Assisted Goal (LTG) Pt will perform 10 reps sit to stand without UE support in 30 sec to demonstrate improved functional hip strength and balance. LTG Duration 12/03/21 1 Impairment 15/80 Short Term Goal (STG) Pt will present with an improved LEFS score to at least 30/80 to show improved functional ability. STG Duration 10/22/21 Assisted Goal (LTG) Pt will present with an improved LEFS score to at least 55/80 to show improved functional ability. LTG Duration 12/03/21 Assessment Summary Assessment Pt presents 6 days s/p L post approach CHRISTOS with overaall good pain control and mobility . He has had inc swelling of LLE and brusing around L hip , but does feel that his legs are more even in length now. he is very motivated to return to further activity again as pt used to be more active. He has history of R TKA which is giving him some discomfort now and 2 lumbar surgeries with overall weakness in LEs, impaired posture and dec balance/stabiltiy. He would beneift from skilled PT to address these deficits. Physical Therapy Plan Frequency and Duration Frequency of Treatment 2x/Week Duration of Treatment 3 months Plan of Care Start Date 09/03/21 Plan of Care End Date 12/03/21 Therapeutic Interventions Therapeutic Interventions Aquatic Therapy,Balance Training,Gait Training,Home Exercise Program,Joint Mobilizations,Manual Therapy, Neuromuscular Re-education, Patient/Caregiver Education, Self-Care/Home Management,Soft Tissue Mobilization,Taping, Therapeutic Activities, Therapeutic Exercises Modalities Cold Pack/Ice Massage,Electric Stimulation,Hot Packs Next Visit Focus/Plan Next Note Type Treatment Note Next Visit Plan leg press, upright bike, work on gait and attempt cane use, heel raises, standing knee flex, sidestep, balance on foam, review exercises as needed
--- NOTE | 2021-09-06 12:09 | PT.OTN ---
Current Diagnoses Unilateral primary osteoarthritis, left hip (09/06/21) Physical Therapy Treatment Note PT-OP-A Visit Information Start: 06/12/21 14:07 Freq: Status: Active Protocol: Document 09/06/21 11:54 [facility] (Rec: 09/06/21 12:09 [facility] [id number]) Out-Patient Physical Therapy Visit Information Visit Information Visit Type Treatment Note Visit Note 07/05 Visit Start Time 11:21 Visit Stop Time 12:00 Total Visit Minutes 39 Visit Number 3 Number of PAY AGENT Visits 0 PT-OP-B Current Condition Start: 06/12/21 14:07 Freq: Status: Active Protocol: Document 09/03/21 12:53 [facility] (Rec: 09/05/21 08:17 [facility] [id number]) Current Condition History of Current Condition Onset Date 08/28/21 Current Complaints L CHRISTOS History of Current Condition 09/03: Pt had L post approach CHRISTOS and is taking pain meds to manage pain. he does feel that his legs are more even in length after L CHRISTOS. He has been compliant w/exercises. He was concerned about swelling but does note he has been sitting in dependent position a lot. IE:Pt has a history of two back surgeries in 2 1/2 years. He had ongoing left hip pain after both surgeries and PT had suspected underlying hip pathology. He finally got an appointment with Dr. Barger in March of 2021. He has a left THR scheduled on 06/26/2021 . He will have an posterior approach per handout in folder but pt does not recall what kind he will have. PMH: right foot surgery, right TKR, three lumbar surgeries including two fusions and left foot neuropathy. Pt is getting a RW at [facility]. He has a walk-in shower. He does not have a seat. He has two small steps and a threshold to get in the house or a threshold. There is no railing. Treatment Goals Patient/Caregiver Goals be able to sail on boat, go for walks including trails, get back to biking (possibly getting electric), be able to exercise to lose wt PT-OP-C Subjective Start: 06/12/21 14:07 Freq: Status: Active Protocol: Document 09/06/21 11:54 [facility] (Rec: 09/06/21 12:09 [facility] [id number]) OP-PT Subjective Patient Comments Patient Comments Pt reports some inc swelling in LLE. Has not talked to re: this yet. PT-OP-G Mobility & Gait Start: 06/12/21 14:07 Freq: Status: Active Protocol: Document 09/03/21 12:53 [facility] (Rec: 09/05/21 08:14 [facility] [id number]) OP Mobility Evaluation Bed Mobility Supine to and from Sit indep Transfers Sit to Stand pt kicks LLE out in front to avoid 90 deg for sit<>stand OP Gait Assessment Comments Gait Comments Pt amb w/FWW with dec LLE stance time and push off. PT-OP-J Posture/Palpation/Skin Start: 06/12/21 14:07 Freq: Status: Active Protocol: Document 09/03/21 12:53 [facility] (Rec: 09/05/21 08:14 [facility] [id number]) Posture Evaluation Comments Posture Comments fwd flexed trunk Skin Assessment Other Assessments Skin Assessment Comments swelling of LLE and brusiing around L hip PT-OP-K Range of Motion Start: 06/12/21 14:07 Freq: Status: Active Protocol: Document 06/19/21 10:30 [facility] (Rec: 06/19/21 12:22 [facility] [id number]) Hip Goniometric Range of Motion Hip ROM Limitations Comments Functional assessment only today d/t amount of training that needs to go into 45 minute eval and pre-op training: decreased left hip movement compared to the right with HS, gait, bed mobility and transfers and pt exhibits guarding behavior PT-OP-M Strength Start: 06/12/21 14:07 Freq: Status: Active Protocol: Document 09/03/21 12:53 [facility] (Rec: 09/05/21 08:14 [facility] [id number]) Hip Strength Hip Manual Muscle Testing Right Flexion (L2) 4- Good- External Rotation 4 Good Internal Rotation 5 Normal Left Flexion (L2) 3+ Fair+ External Rotation 3- Fair- Internal Rotation 3+ Fair+ Comments IR tested in neutral position and hip flex w/pt leaned back into hands to avoid pt going greater than 90 deg hip flex Knee Strength Knee Manual Muscle Testing Right Flexion (S2) 5 Normal Extension (L3) 5 Normal Left Flexion (S2) 4- Good- Extension (L3) 3 Fair Ankle/Foot Strength Ankle and Foot Manual Muscle Testing Left Dorsiflexion (L4) 4- Good- Plantarflexion (S1) 4- Good- Right Dorsiflexion (L4) 5 Normal Plantarflexion (S1) 5 Normal Comments seated PF testing B PT-OP-Q Treatments Start: 06/12/21 14:07 Freq: Status: Active Protocol: Document 09/06/21 11:54 [facility] (Rec: 09/06/21 12:09 [facility] [id number]) Gym Equipment Shuttle Recovery Bilateral Squats Resistance 50#, 75# Shuttle Recovery Platform Stable Reps/Time 2x15 Therapeutic Exercises Standing Exercises stretch Standing Exercise Name hip flexor Side bilateral Reps/Minutes 30 sec hip ext Side bilateral Reps/Minutes 15 hip abd Side bilateral Reps/Minutes 15 heel raises Side bilateral Reps/Minutes 20 sidestep Side bilateral Equipment Used rail prn Reps/Minutes 20ft knee flex Side left Reps/Minutes 15 Gait Training Gait Activity gait Device Used cane Distance/Duration 50ftx2 Comments working on sequence and posture w/gait and no fwd flex when WB LLE wt shifts Comments in mirror w/cane focus on posture and full wt shift Neuro Re-Education Treatment Balance Activities foam Details progressed to w/head turns Comments WBOS, NBOS, staggered stance B PT-OP-T Assessment and Plan Start: 06/12/21 14:07 Freq: Status: Active Protocol: Document 09/06/21 11:54 [facility] (Rec: 09/06/21 12:09 [facility] [id number]) Physical Therapy Assessment Goals 5 Short Term Goal (STG) Pt will be able to walk 1 mile w/o inc pain greater than 4/ 10 STG Duration 11/03/21 Halfway Goal (LTG) Pt will be able to walk on trails w/walking sticks as needed w/o inc pain more than 2/10. LTG Duration 12/03/21 4 Short Term Goal (STG) Pt will score at least 25/30 on FGA to show improved balance to dec fall risk STG Duration 11/03/21 Botany Laboratory Assistant Goal (LTG) Pt will be able to go sailing on boat and go biking w/o concern for balance or have pain. LTG Duration 12/03/21 3 Short Term Goal (STG) Pt will be indep w/HEP fro strength, balance, gait and flexiblity. STG Duration 10/12/21 Botany Laboratory Assistant Goal (LTG) Pt will score at least 4+/5 BLE MMT to show improved strength to allow for improved functional ability and return to higher level activities. LTG Duration 12/03/21 2 Botany Laboratory Assistant Goal (LTG) Pt will perform 10 reps sit to stand without UE support in 30 sec to demonstrate improved functional hip strength and balance. LTG Duration 12/03/21 1 Impairment 15/80 Short Term Goal (STG) Pt will present with an improved LEFS score to at least 30/80 to show improved functional ability. STG Duration 10/22/21 Halfway Goal (LTG) Pt will present with an improved LEFS score to at least 55/80 to show improved functional ability. LTG Duration 12/03/21 Assessment Summary Assessment Pt did well with all exercises . he did note signficiant hip flexor stretch in hip flexor stretch position. He reported only mild discomfort w/ exercises. Physical Therapy Plan Frequency and Duration Frequency of Treatment 2x/Week Duration of Treatment 3 months Plan of Care Start Date 09/03/21 Plan of Care End Date 12/03/21 Next Visit Focus/Plan Next Note Type Treatment Note Next Visit Plan Gently progress strength and balance activities and start manual in a couple weeks
--- NOTE | 2021-09-10 12:08 | PT.OTN ---
Current Diagnoses Unilateral primary osteoarthritis, left hip (09/10/21) Physical Therapy Treatment Note PT-OP-A Visit Information Start: 06/12/21 14:07 Freq: Status: Active Protocol: Document 09/10/21 11:28 [facility] (Rec: 09/10/21 12:08 [facility] [id number]) Out-Patient Physical Therapy Visit Information Visit Information Visit Type Treatment Note Visit Note 08/02 Visit Start Time 11:20 Visit Stop Time 12:00 Total Visit Minutes 40 Visit Number 4 Number of SIGNAL REPAIRER Visits 0 PT-OP-B Current Condition Start: 06/12/21 14:07 Freq: Status: Active Protocol: Document 09/03/21 12:53 [facility] (Rec: 09/05/21 08:17 [facility] [id number]) Current Condition History of Current Condition Onset Date 08/28/21 Current Complaints L CHRISTOS History of Current Condition 09/03: Pt had L post approach CHRISTOS and is taking pain meds to manage pain. he does feel that his legs are more even in length after L CHRISTOS. He has been compliant w/exercises. He was concerned about swelling but does note he has been sitting in dependent position a lot. IE:Pt has a history of two back surgeries in 2 1/2 years. He had ongoing left hip pain after both surgeries and PT had suspected underlying hip pathology. He finally got an appointment with Dr. Barger in March of 2021. He has a left THR scheduled on 06/26/2021 . He will have an posterior approach per handout in folder but pt does not recall what kind he will have. PMH: right foot surgery, right TKR, three lumbar surgeries including two fusions and left foot neuropathy. Pt is getting a RW at [facility]. He has a walk-in shower. He does not have a seat. He has two small steps and a threshold to get in the house or a threshold. There is no railing. Treatment Goals Patient/Caregiver Goals be able to sail on boat, go for walks including trails, get back to biking (possibly getting electric), be able to exercise to lose wt PT-OP-C Subjective Start: 06/12/21 14:07 Freq: Status: Active Protocol: Document 09/10/21 11:28 [facility] (Rec: 09/10/21 12:08 [facility] [id number]) OP-PT Subjective Patient Comments Patient Comments MD had him get an US d/t swelling. Neg for DVT just notable for swelling. Pt notes theyd di not instruct re: compression stockings. he is a little sore from overoing a little yesterday. He walked one lap at tug boat and walked grocery store. PT-OP-G Mobility & Gait Start: 06/12/21 14:07 Freq: Status: Active Protocol: Document 09/03/21 12:53 [facility] (Rec: 09/05/21 08:14 [facility] [id number]) OP Mobility Evaluation Bed Mobility Supine to and from Sit indep Transfers Sit to Stand pt kicks LLE out in front to avoid 90 deg for sit<>stand OP Gait Assessment Comments Gait Comments Pt amb w/FWW with dec LLE stance time and push off. PT-OP-J Posture/Palpation/Skin Start: 06/12/21 14:07 Freq: Status: Active Protocol: Document 09/03/21 12:53 [facility] (Rec: 09/05/21 08:14 [facility] [id number]) Posture Evaluation Comments Posture Comments fwd flexed trunk Skin Assessment Other Assessments Skin Assessment Comments swelling of LLE and brusiing around L hip PT-OP-K Range of Motion Start: 06/12/21 14:07 Freq: Status: Active Protocol: Document 06/19/21 10:30 [facility] (Rec: 06/19/21 12:22 [facility] [id number]) Hip Goniometric Range of Motion Hip ROM Limitations Comments Functional assessment only today d/t amount of training that needs to go into 45 minute eval and pre-op training: decreased left hip movement compared to the right with HS, gait, bed mobility and transfers and pt exhibits guarding behavior PT-OP-M Strength Start: 06/12/21 14:07 Freq: Status: Active Protocol: Document 09/03/21 12:53 [facility] (Rec: 09/05/21 08:14 [facility] [id number]) Hip Strength Hip Manual Muscle Testing Right Flexion (L2) 4- Good- External Rotation 4 Good Internal Rotation 5 Normal Left Flexion (L2) 3+ Fair+ External Rotation 3- Fair- Internal Rotation 3+ Fair+ Comments IR tested in neutral position and hip flex w/pt leaned back into hands to avoid pt going greater than 90 deg hip flex Knee Strength Knee Manual Muscle Testing Right Flexion (S2) 5 Normal Extension (L3) 5 Normal Left Flexion (S2) 4- Good- Extension (L3) 3 Fair Ankle/Foot Strength Ankle and Foot Manual Muscle Testing Left Dorsiflexion (L4) 4- Good- Plantarflexion (S1) 4- Good- Right Dorsiflexion (L4) 5 Normal Plantarflexion (S1) 5 Normal Comments seated PF testing B PT-OP-Q Treatments Start: 06/12/21 14:07 Freq: Status: Active Protocol: Document 09/10/21 11:28 [facility] (Rec: 09/10/21 12:08 [facility] [id number]) Gym Equipment Shuttle Recovery Bilateral Squats Resistance 75#, 87# Shuttle Recovery Platform Stable Reps/Time 2x15 Shuttle Balance blue clips Comments fwd & side: WBOS & NBOS fwd: staggered stance B Therapeutic Exercises Standing Exercises step downs Side left Equipment Used 4 in step Reps/Minutes 10 Comments rail prn step ups Side left Equipment Used 4 in Reps/Minutes 15 Comments rail for balance stretch Standing Exercise Name hip flexor Side bilateral Reps/Minutes 30 sec hip ext Side bilateral Reps/Minutes 12 hip abd Side bilateral Reps/Minutes 12 heel raises Side bilateral Reps/Minutes 20 knee flex Side left Reps/Minutes 15 Manual Therapy Treatment Soft Tissue Mobilization R TFL, prox quad Body Location R quad, hip flexors, TFL Mobilization Type Rolling,Strumming Intensity/Depth Moderate Body Position Hooklying PT-OP-T Assessment and Plan Start: 06/12/21 14:07 Freq: Status: Active Protocol: Document 09/10/21 11:28 [facility] (Rec: 09/10/21 12:08 [facility] [id number]) Physical Therapy Assessment Goals 5 Short Term Goal (STG) Pt will be able to walk 1 mile w/o inc pain greater than 4/ 10 STG Duration 11/03/21 Alf Goal (LTG) Pt will be able to walk on trails w/walking sticks as needed w/o inc pain more than 2/10. LTG Duration 12/03/21 4 Short Term Goal (STG) Pt will score at least 25/30 on FGA to show improved balance to dec fall risk STG Duration 11/03/21 Alf Goal (LTG) Pt will be able to go sailing on boat and go biking w/o concern for balance or have pain. LTG Duration 12/03/21 3 Short Term Goal (STG) Pt will be indep w/HEP fro strength, balance, gait and flexiblity. STG Duration 10/12/21 Wire Straightening Machine Operator Goal (LTG) Pt will score at least 4+/5 BLE MMT to show improved strength to allow for improved functional ability and return to higher level activities. LTG Duration 12/03/21 2 Wire Straightening Machine Operator Goal (LTG) Pt will perform 10 reps sit to stand without UE support in 30 sec to demonstrate improved functional hip strength and balance. LTG Duration 12/03/21 1 Impairment 15/80 Short Term Goal (STG) Pt will present with an improved LEFS score to at least 30/80 to show improved functional ability. STG Duration 10/22/21 Alf Goal (LTG) Pt will present with an improved LEFS score to at least 55/80 to show improved functional ability. LTG Duration 12/03/21 Assessment Summary Assessment Pt did well with progression of exercises and was sent home w/more difficult HEP to do 1x /day and other exercises 1x/ day w/cont APs every hour. he requires cues for upright posture during all standing exercises especially when WB on LLE. Physical Therapy Plan Frequency and Duration Frequency of Treatment 2x/Week Duration of Treatment 3 months Plan of Care Start Date 09/03/21 Plan of Care End Date 12/03/21 Next Visit Focus/Plan Next Note Type Treatment Note Next Visit Plan Gently progress strength and balance activities and cont to progress manual as needed
--- NOTE | 2021-09-13 12:03 | PT.OTN ---
Current Diagnoses Unilateral primary osteoarthritis, left hip (09/13/21) Physical Therapy Treatment Note PT-OP-A Visit Information Start: 06/12/21 14:07 Freq: Status: Active Protocol: Document 09/13/21 11:20 [facility] (Rec: 09/13/21 12:03 [facility] [id number]) Out-Patient Physical Therapy Visit Information Visit Information Visit Type Treatment Note Visit Note 09/02 Visit Start Time 11:20 Visit Stop Time 12:00 Total Visit Minutes 40 Visit Number 5 Number of FRYLINE ATTENDANT Visits 0 PT-OP-B Current Condition Start: 06/12/21 14:07 Freq: Status: Active Protocol: Document 09/03/21 12:53 [facility] (Rec: 09/05/21 08:17 [facility] [id number]) Current Condition History of Current Condition Onset Date 08/28/21 Current Complaints L CHRISTOS History of Current Condition 09/03: Pt had L post approach CHRISTOS and is taking pain meds to manage pain. he does feel that his legs are more even in length after L CHRISTOS. He has been compliant w/exercises. He was concerned about swelling but does note he has been sitting in dependent position a lot. IE:Pt has a history of two back surgeries in 2 1/2 years. He had ongoing left hip pain after both surgeries and PT had suspected underlying hip pathology. He finally got an appointment with Dr. Barger in March of 2021. He has a left THR scheduled on 06/26/2021 . He will have an posterior approach per handout in folder but pt does not recall what kind he will have. PMH: right foot surgery, right TKR, three lumbar surgeries including two fusions and left foot neuropathy. Pt is getting a RW at [facility]. He has a walk-in shower. He does not have a seat. He has two small steps and a threshold to get in the house or a threshold. There is no railing. Treatment Goals Patient/Caregiver Goals be able to sail on boat, go for walks including trails, get back to biking (possibly getting electric), be able to exercise to lose wt PT-OP-C Subjective Start: 06/12/21 14:07 Freq: Status: Active Protocol: Document 09/13/21 11:20 [facility] (Rec: 09/13/21 12:03 [facility] [id number]) OP-PT Subjective Patient Comments Patient Comments Pt reports he missed his MD appt. He now goes tomorrow. He feels like he is getting better each day. PT-OP-G Mobility & Gait Start: 06/12/21 14:07 Freq: Status: Active Protocol: Document 09/03/21 12:53 [facility] (Rec: 09/05/21 08:14 [facility] [id number]) OP Mobility Evaluation Bed Mobility Supine to and from Sit indep Transfers Sit to Stand pt kicks LLE out in front to avoid 90 deg for sit<>stand OP Gait Assessment Comments Gait Comments Pt amb w/FWW with dec LLE stance time and push off. PT-OP-J Posture/Palpation/Skin Start: 06/12/21 14:07 Freq: Status: Active Protocol: Document 09/03/21 12:53 [facility] (Rec: 09/05/21 08:14 [facility] [id number]) Posture Evaluation Comments Posture Comments fwd flexed trunk Skin Assessment Other Assessments Skin Assessment Comments swelling of LLE and brusiing around L hip PT-OP-K Range of Motion Start: 06/12/21 14:07 Freq: Status: Active Protocol: Document 06/19/21 10:30 [facility] (Rec: 06/19/21 12:22 [facility] [id number]) Hip Goniometric Range of Motion Hip ROM Limitations Comments Functional assessment only today d/t amount of training that needs to go into 45 minute eval and pre-op training: decreased left hip movement compared to the right with HS, gait, bed mobility and transfers and pt exhibits guarding behavior PT-OP-M Strength Start: 06/12/21 14:07 Freq: Status: Active Protocol: Document 09/03/21 12:53 [facility] (Rec: 09/05/21 08:14 [facility] [id number]) Hip Strength Hip Manual Muscle Testing Right Flexion (L2) 4- Good- External Rotation 4 Good Internal Rotation 5 Normal Left Flexion (L2) 3+ Fair+ External Rotation 3- Fair- Internal Rotation 3+ Fair+ Comments IR tested in neutral position and hip flex w/pt leaned back into hands to avoid pt going greater than 90 deg hip flex Knee Strength Knee Manual Muscle Testing Right Flexion (S2) 5 Normal Extension (L3) 5 Normal Left Flexion (S2) 4- Good- Extension (L3) 3 Fair Ankle/Foot Strength Ankle and Foot Manual Muscle Testing Left Dorsiflexion (L4) 4- Good- Plantarflexion (S1) 4- Good- Right Dorsiflexion (L4) 5 Normal Plantarflexion (S1) 5 Normal Comments seated PF testing B PT-OP-Q Treatments Start: 06/12/21 14:07 Freq: Status: Active Protocol: Document 09/13/21 11:20 [facility] (Rec: 09/13/21 12:03 [facility] [id number]) Gym Equipment Shuttle Recovery Unilateral Squats Resistance 37# Shuttle Recovery Platform Stable Reps/Time 15 Bilateral Squats Resistance 87# Shuttle Recovery Platform Stable Reps/Time 15 Shuttle Balance blue clips Details fwd w/head turns Comments fwd & side: WBOS & NBOS fwd: staggered stance B Therapeutic Exercises Standing Exercises step downs Standing Exercise Name w/backwards step up Side left Equipment Used 4 in step Reps/Minutes 10 Comments rail prn step ups Standing Exercise Name w/backwards step down Side left Equipment Used 4 in Reps/Minutes 15 Comments rail for balance Therapeutic Activity Therapeutic Activity sit to stand Comments working on lower chair for [facility] [place] for in/out of recliner at home Manual Therapy Treatment Soft Tissue Mobilization R TFL, prox quad Body Location L quad, hip flexors, TFL Mobilization Type Rolling,Strumming Intensity/Depth Moderate Body Position Hooklying PT-OP-T Assessment and Plan Start: 06/12/21 14:07 Freq: Status: Active Protocol: Document 09/13/21 11:20 [facility] (Rec: 09/13/21 12:03 [facility] [id number]) Physical Therapy Assessment Goals 5 Short Term Goal (STG) Pt will be able to walk 1 mile w/o inc pain greater than 4/ 10 STG Duration 11/03/21 Timber Spotter Goal (LTG) Pt will be able to walk on trails w/walking sticks as needed w/o inc pain more than 2/10. LTG Duration 12/03/21 4 Short Term Goal (STG) Pt will score at least 25/30 on FGA to show improved balance to dec fall risk STG Duration 11/03/21 [facility] Goal (LTG) Pt will be able to go sailing on boat and go biking w/o concern for balance or have pain. LTG Duration 12/03/21 3 Short Term Goal (STG) Pt will be indep w/HEP fro strength, balance, gait and flexiblity. STG Duration 10/12/21 Timber Spotter Goal (LTG) Pt will score at least 4+/5 BLE MMT to show improved strength to allow for improved functional ability and return to higher level activities. LTG Duration 12/03/21 2 Timber Spotter Goal (LTG) Pt will perform 10 reps sit to stand without UE support in 30 sec to demonstrate improved functional hip strength and balance. LTG Duration 12/03/21 1 Impairment 15/80 Short Term Goal (STG) Pt will present with an improved LEFS score to at least 30/80 to show improved functional ability. STG Duration 10/22/21 Timber Spotter Goal (LTG) Pt will present with an improved LEFS score to at least 55/80 to show improved functional ability. LTG Duration 12/03/21 Assessment Summary Assessment Pt did better with step ups and down today showing more control and less use of rail. He did show imrpoved balance today also. Physical Therapy Plan Frequency and Duration Frequency of Treatment 2x/Week Duration of Treatment 3 months Plan of Care Start Date 09/03/21 Plan of Care End Date 12/03/21 Next Visit Focus/Plan Next Note Type Treatment Note Next Visit Plan Cont to progress strength and balance activities and cont to progress manual as needed
--- NOTE | 2021-09-17 12:08 | PT.OTN ---
Current Diagnoses Unilateral primary osteoarthritis, left hip (09/17/21) Physical Therapy Treatment Note PT-OP-A Visit Information Start: 06/12/21 14:07 Freq: Status: Active Protocol: Document 09/17/21 11:10 [facility] (Rec: 09/17/21 12:08 [facility] [id number]) Out-Patient Physical Therapy Visit Information Visit Information Visit Type Treatment Note Visit Note 10/02 Visit Start Time 11:16 Visit Stop Time 11:59 Total Visit Minutes 43 Visit Number 6 Number of ALLERGY AND IMMUNOLOGY CHIEF Visits 0 PT-OP-B Current Condition Start: 06/12/21 14:07 Freq: Status: Active Protocol: Document 09/03/21 12:53 [facility] (Rec: 09/05/21 08:17 [facility] [id number]) Current Condition History of Current Condition Onset Date 08/28/21 Current Complaints L CHRISTOS History of Current Condition 09/03: Pt had L post approach CHRISTOS and is taking pain meds to manage pain. he does feel that his legs are more even in length after L CHRISTOS. He has been compliant w/exercises. He was concerned about swelling but does note he has been sitting in dependent position a lot. IE:Pt has a history of two back surgeries in 2 1/2 years. He had ongoing left hip pain after both surgeries and PT had suspected underlying hip pathology. He finally got an appointment with Dr. Barger in March of 2021. He has a left THR scheduled on 06/26/2021 . He will have an posterior approach per handout in folder but pt does not recall what kind he will have. PMH: right foot surgery, right TKR, three lumbar surgeries including two fusions and left foot neuropathy. Pt is getting a RW at [facility]. He has a walk-in shower. He does not have a seat. He has two small steps and a threshold to get in the house or a threshold. There is no railing. Treatment Goals Patient/Caregiver Goals be able to sail on boat, go for walks including trails, get back to biking (possibly getting electric), be able to exercise to lose wt PT-OP-C Subjective Start: 06/12/21 14:07 Freq: Status: Active Protocol: Document 09/17/21 11:10 [facility] (Rec: 09/17/21 12:08 [facility] [id number]) OP-PT Subjective Patient Comments Patient Comments Pt reports MD romet went well. He has been walking about 30 min a day. Notes no longer taking much vicadin, mostly tylenol. PT-OP-G Mobility & Gait Start: 06/12/21 14:07 Freq: Status: Active Protocol: Document 09/03/21 12:53 [facility] (Rec: 09/05/21 08:14 [facility] [id number]) OP Mobility Evaluation Bed Mobility Supine to and from Sit indep Transfers Sit to Stand pt kicks LLE out in front to avoid 90 deg for sit<>stand OP Gait Assessment Comments Gait Comments Pt amb w/FWW with dec LLE stance time and push off. PT-OP-J Posture/Palpation/Skin Start: 06/12/21 14:07 Freq: Status: Active Protocol: Document 09/03/21 12:53 [facility] (Rec: 09/05/21 08:14 [facility] [id number]) Posture Evaluation Comments Posture Comments fwd flexed trunk Skin Assessment Other Assessments Skin Assessment Comments swelling of LLE and brusiing around L hip PT-OP-K Range of Motion Start: 06/12/21 14:07 Freq: Status: Active Protocol: Document 06/19/21 10:30 [facility] (Rec: 06/19/21 12:22 MB [id number]) Hip Goniometric Range of Motion Hip ROM Limitations Comments Functional assessment only today d/t amount of training that needs to go into 45 minute eval and pre-op training: decreased left hip movement compared to the right with HS, gait, bed mobility and transfers and pt exhibits guarding behavior PT-OP-M Strength Start: 06/12/21 14:07 Freq: Status: Active Protocol: Document 09/03/21 12:53 [facility] (Rec: 09/05/21 08:14 [facility] [id number]) Hip Strength Hip Manual Muscle Testing Right Flexion (L2) 4- Good- External Rotation 4 Good Internal Rotation 5 Normal Left Flexion (L2) 3+ Fair+ External Rotation 3- Fair- Internal Rotation 3+ Fair+ Comments IR tested in neutral position and hip flex w/pt leaned back into hands to avoid pt going greater than 90 deg hip flex Knee Strength Knee Manual Muscle Testing Right Flexion (S2) 5 Normal Extension (L3) 5 Normal Left Flexion (S2) 4- Good- Extension (L3) 3 Fair Ankle/Foot Strength Ankle and Foot Manual Muscle Testing Left Dorsiflexion (L4) 4- Good- Plantarflexion (S1) 4- Good- Right Dorsiflexion (L4) 5 Normal Plantarflexion (S1) 5 Normal Comments seated PF testing B PT-OP-Q Treatments Start: 06/12/21 14:07 Freq: Status: Active Protocol: Document 09/17/21 11:10 [facility] (Rec: 09/17/21 12:08 [facility] [id number]) Gym Equipment Shuttle Recovery Unilateral Squats Resistance 50# Shuttle Recovery Platform Stable Reps/Time 15 Bilateral Squats Resistance 100# Shuttle Recovery Platform Stable Reps/Time 15 Shuttle Balance red clips Details progressive dec UE use Comments fWd & side: WBOS fwd: NBOS Therapeutic Exercises Standing Exercises step downs Standing Exercise Name w/backwards step up Side left Equipment Used 4 in step Reps/Minutes 12 Comments rail prn step ups Standing Exercise Name w/backwards step down Side left Equipment Used 5 in Reps/Minutes 12 Comments rail for balance sidestep Side bilateral Resistance lvl 1 Equipment Used rail prn Reps/Minutes 20ft Gait Training Gait Activity wt shifts Level of Assistance mirror & cane Treatment Focus posture and full wt shift Comments 1. fwd wt shift x10 B 2. fwd wt shift w/step thru x8 B Manual Therapy Treatment Soft Tissue Mobilization R TFL, prox quad Body Location L quad, hip flexors, TFL Mobilization Type Rolling,Strumming Intensity/Depth Moderate Body Position Supine PT-OP-T Assessment and Plan Start: 06/12/21 14:07 Freq: Status: Active Protocol: Document 09/17/21 11:10 [facility] (Rec: 09/17/21 12:08 [facility] [id number]) Physical Therapy Assessment Goals 5 Short Term Goal (STG) Pt will be able to walk 1 mile w/o inc pain greater than 4/ 10 STG Duration 11/03/21 Boiler Engineer Goal (LTG) Pt will be able to walk on trails w/walking sticks as needed w/o inc pain more than 2/10. LTG Duration 12/03/21 4 Short Term Goal (STG) Pt will score at least 25/30 on FGA to show improved balance to dec fall risk STG Duration 11/03/21 [facility] Goal (LTG) Pt will be able to go sailing on boat and go biking w/o concern for balance or have pain. LTG Duration 12/03/21 3 Short Term Goal (STG) Pt will be indep w/HEP fro strength, balance, gait and flexiblity. STG Duration 10/12/21 Boiler Engineer Goal (LTG) Pt will score at least 4+/5 BLE MMT to show improved strength to allow for improved functional ability and return to higher level activities. LTG Duration 12/03/21 2 Fdc Goal (LTG) Pt will perform 10 reps sit to stand without UE support in 30 sec to demonstrate improved functional hip strength and balance. LTG Duration 12/03/21 1 Impairment 15/80 Short Term Goal (STG) Pt will present with an improved LEFS score to at least 30/80 to show improved functional ability. STG Duration 10/22/21 Fdc Goal (LTG) Pt will present with an improved LEFS score to at least 55/80 to show improved functional ability. LTG Duration 12/03/21 Assessment Summary Assessment Pt did better w/progression of strengthening today. He showed much improved gait mechanics w/working on wt shift. Physical Therapy Plan Frequency and Duration Frequency of Treatment 2x/Week Duration of Treatment 3 months Plan of Care Start Date 09/03/21 Plan of Care End Date 12/03/21 Next Visit Focus/Plan Next Note Type Treatment Note Next Visit Plan Cont to progress strength and balance activities and cont to progress manual as needed
--- NOTE | 2021-09-20 13:45 | PT.OTN ---
Current Diagnoses Unilateral primary osteoarthritis, left hip (09/20/21) Physical Therapy Treatment Note PT-OP-A Visit Information Start: 06/12/21 14:07 Freq: Status: Active Protocol: Document 09/20/21 13:00 SP (Rec: 09/20/21 13:49 SP [id number]) Out-Patient Physical Therapy Visit Information Visit Information Visit Type Treatment Note Visit Note 11/02 Visit Start Time 13:00 Visit Stop Time 13:45 Total Visit Minutes 45 Visit Number 7 Number of WARD ASSISTANT Visits 1 Evaluation Information Evaluation Date 06/19/21 Precautions Precautions L Posterior hip precuations PT-OP-B Current Condition Start: 06/12/21 14:07 Freq: Status: Active Protocol: Document 09/03/21 12:53 LR (Rec: 09/05/21 08:17 [facility] [id number]) Current Condition History of Current Condition Onset Date 08/28/21 Current Complaints L CHRISTOS History of Current Condition 09/03: Pt had L post approach CHRISTOS and is taking pain meds to manage pain. he does feel that his legs are more even in length after L CHRISTOS. He has been compliant w/exercises. He was concerned about swelling but does note he has been sitting in dependent position a lot. IE:Pt has a history of two back surgeries in 2 1/2 years. He had ongoing left hip pain after both surgeries and PT had suspected underlying hip pathology. He finally got an appointment with Dr. Barger in March of 2021. He has a left THR scheduled on 06/26/2021 . He will have an posterior approach per handout in folder but pt does not recall what kind he will have. PMH: right foot surgery, right TKR, three lumbar surgeries including two fusions and left foot neuropathy. Pt is getting a RW at [facility]. He has a walk-in shower. He does not have a seat. He has two small steps and a threshold to get in the house or a threshold. There is no railing. Treatment Goals Patient/Caregiver Goals be able to sail on boat, go for walks including trails, get back to biking (possibly getting electric), be able to exercise to lose wt PT-OP-C Subjective Start: 06/12/21 14:07 Freq: Status: Active Protocol: Document 09/20/21 13:00 SP (Rec: 09/20/21 13:49 SP [id number]) OP-PT Subjective Patient Comments Patient Comments Pt reported over did 40 min walking yesterday and front L hip hurting, challenged advancing, heavy w/ use SPC. PT-OP-G Mobility & Gait Start: 06/12/21 14:07 Freq: Status: Active Protocol: Document 09/03/21 12:53 [facility] (Rec: 09/05/21 08:14 [facility] [id number]) OP Mobility Evaluation Bed Mobility Supine to and from Sit indep Transfers Sit to Stand pt kicks LLE out in front to avoid 90 deg for sit<>stand OP Gait Assessment Comments Gait Comments Pt amb w/FWW with dec LLE stance time and push off. PT-OP-J Posture/Palpation/Skin Start: 06/12/21 14:07 Freq: Status: Active Protocol: Document 09/03/21 12:53 [facility] (Rec: 09/05/21 08:14 [facility] [id number]) Posture Evaluation Comments Posture Comments fwd flexed trunk Skin Assessment Other Assessments Skin Assessment Comments swelling of LLE and brusiing around L hip PT-OP-K Range of Motion Start: 06/12/21 14:07 Freq: Status: Active Protocol: Document 06/19/21 10:30 MB (Rec: 06/19/21 12:22 MB [id number]) Hip Goniometric Range of Motion Hip ROM Limitations Comments Functional assessment only today d/t amount of training that needs to go into 45 minute eval and pre-op training: decreased left hip movement compared to the right with HS, gait, bed mobility and transfers and pt exhibits guarding behavior PT-OP-M Strength Start: 06/12/21 14:07 Freq: Status: Active Protocol: Document 09/03/21 12:53 [facility] (Rec: 09/05/21 08:14 [facility] [id number]) Hip Strength Hip Manual Muscle Testing Right Flexion (L2) 4- Good- External Rotation 4 Good Internal Rotation 5 Normal Left Flexion (L2) 3+ Fair+ External Rotation 3- Fair- Internal Rotation 3+ Fair+ Comments IR tested in neutral position and hip flex w/pt leaned back into hands to avoid pt going greater than 90 deg hip flex Knee Strength Knee Manual Muscle Testing Right Flexion (S2) 5 Normal Extension (L3) 5 Normal Left Flexion (S2) 4- Good- Extension (L3) 3 Fair Ankle/Foot Strength Ankle and Foot Manual Muscle Testing Left Dorsiflexion (L4) 4- Good- Plantarflexion (S1) 4- Good- Right Dorsiflexion (L4) 5 Normal Plantarflexion (S1) 5 Normal Comments seated PF testing B PT-OP-Q Treatments Start: 06/12/21 14:07 Freq: Status: Active Protocol: Document 09/20/21 13:00 SP (Rec: 09/20/21 13:49 SP [id number]) Gym Equipment Shuttle Recovery Unilateral Squats Details L Resistance 50# Shuttle Recovery Platform Stable Reps/Time 15 Bilateral Squats Resistance 100#> 112# Shuttle Recovery Platform Stable Reps/Time x15 Therapeutic Exercises Supine Exercises bridge Supine Exercise Name added to HEP Side bilateral Reps/Minutes x10 Comments cued neutral pelvis- good form pain free elongation extension Supine Exercise Name added to HEP if needed for hip ext stretch Side left Reps/Minutes x10 Comments good feeling stretch on L huong stretch Supine Exercise Name added to HEP if needed for hip ext stretch Side left Reps/Minutes 30 x2 Comments good stretch CHRISTOS Post-op HEP Supine Exercise Name GS, QS, heel slides Side left Reps/Minutes 10 ea Standing Exercises step downs Standing Exercise Name w/backwards step up Side left Equipment Used 4 in step Reps/Minutes 12 Comments rail prn step ups Standing Exercise Name w/backwards step down then step through Side left Equipment Used 4 in Reps/Minutes 12 Comments rail for balance hip ext Side bilateral Resistance AROM Reps/Minutes 12 Gait Training Gait Activity wt shifts Description fwd in mirror w/focus on wt accpetance onto each LE Level of Assistance mirror & cane Surface firm and 4 step Treatment Focus posture and full wt shift Comments 1. fwd wt shift x10 B 2. fwd wt shift w/step thru x8 B Manual Therapy Treatment Soft Tissue Mobilization L hip flex STMs Mobilization Type Cross-Friction,Strumming, Sustained Pressure R TFL, prox quad Body Location L quad, hip flexors, TFL, pectineus Mobilization Type Myofascial Release,Strumming, Sustained Pressure Intensity/Depth Moderate Body Position Supine Comments manual and discussion can use ball on wall has used in past. PT-OP-T Assessment and Plan Start: 06/12/21 14:07 Freq: Status: Active Protocol: Document 09/20/21 13:00 SP (Rec: 09/20/21 13:49 SP [id number]) Physical Therapy Assessment Goals 5 Short Term Goal (STG) Pt will be able to walk 1 mile w/o inc pain greater than 4/ 10 09/20/21: pt stated 40 min walk lately and also ramp w/ B HR on dock but might have over did, discomfort L adductor/hip flexor. STG Duration 11/03/21 progressing. Practical Nurse Clinical Coordinator Goal (LTG) Pt will be able to walk on trails w/walking sticks as needed w/o inc pain more than 2/10. LTG Duration 12/03/21 4 Short Term Goal (STG) Pt will score at least 25/30 on FGA to show improved balance to dec fall risk STG Duration 11/03/21 Correction Goal (LTG) Pt will be able to go sailing on boat and go biking w/o concern for balance or have pain. LTG Duration 12/03/21 3 Short Term Goal (STG) Pt will be indep w/HEP fro strength, balance, gait and flexiblity. STG Duration 10/12/21 Correction Goal (LTG) Pt will score at least 4+/5 BLE MMT to show improved strength to allow for improved functional ability and return to higher level activities. LTG Duration 12/03/21 2 Practical Nurse Clinical Coordinator Goal (LTG) Pt will perform 10 reps sit to stand without UE support in 30 sec to demonstrate improved functional hip strength and balance. LTG Duration 12/03/21 1 Impairment 15/80 Short Term Goal (STG) Pt will present with an improved LEFS score to at least 30/80 to show improved functional ability. STG Duration 10/22/21 Practical Nurse Clinical Coordinator Goal (LTG) Pt will present with an improved LEFS score to at least 55/80 to show improved functional ability. LTG Duration 12/03/21 Assessment Summary Assessment Pt had spasming pain when walking through gym LLE advancement didn't clear and almost fell, had SPC in RUE, therapist outside arms distance. Pt improved L hip adductor/ hip flexor softening and ROM into extension post manual and stretching. Wt shifts post manual ease L hip ext/ calf toe off and progressed to step throughs and added step ups no pain. Pt states can move much better leaving, less RUE wB on SPC. Physical Therapy Plan Frequency and Duration Frequency of Treatment 2x/Week Duration of Treatment 3 months Plan of Care Start Date 09/03/21 Plan of Care End Date 12/03/21 Therapeutic Interventions Therapeutic Interventions Aquatic Therapy,Balance Training,Gait Training,Home Exercise Program,Joint Mobilizations,Manual Therapy, Neuromuscular Re-education, Patient/Caregiver Education, Self-Care/Home Management,Soft Tissue Mobilization,Taping, Therapeutic Activities, Therapeutic Exercises Modalities Cold Pack/Ice Massage,Electric Stimulation,Hot Packs Next Visit Focus/Plan Next Note Type Treatment Note Next Visit Plan Check response to manual/ stretching L anterior hip. REcheck: huong juarez stretch, band walk, L glut/ hip ext fac for stabilization wt acceptance/ step through. POC: Cont to progress strength and balance activities and cont to progress manual as needed
--- NOTE | 2021-09-24 12:11 | PT.OTN ---
Current Diagnoses Unilateral primary osteoarthritis, left hip (09/24/21) Physical Therapy Treatment Note PT-OP-A Visit Information Start: 06/12/21 14:07 Freq: Status: Active Protocol: Document 09/24/21 11:20 [facility] (Rec: 09/24/21 12:11 [facility] [id number]) Out-Patient Physical Therapy Visit Information Visit Information Visit Type Treatment Note Visit Note 12/02 Visit Start Time 11:18 Visit Stop Time 12:00 Total Visit Minutes 42 Visit Number 8 Number of CUSTODIAL OPERATIONS MANAGER Visits 0 PT-OP-B Current Condition Start: 06/12/21 14:07 Freq: Status: Active Protocol: Document 09/03/21 12:53 [facility] (Rec: 09/05/21 08:17 [facility] [id number]) Current Condition History of Current Condition Onset Date 08/28/21 Current Complaints L CHRISTOS History of Current Condition 09/03: Pt had L post approach CHRISTOS and is taking pain meds to manage pain. he does feel that his legs are more even in length after L CHRISTOS. He has been compliant w/exercises. He was concerned about swelling but does note he has been sitting in dependent position a lot. IE:Pt has a history of two back surgeries in 2 1/2 years. He had ongoing left hip pain after both surgeries and PT had suspected underlying hip pathology. He finally got an appointment with Dr. Barger in March of 2021. He has a left THR scheduled on 06/26/2021 . He will have an posterior approach per handout in folder but pt does not recall what kind he will have. PMH: right foot surgery, right TKR, three lumbar surgeries including two fusions and left foot neuropathy. Pt is getting a RW at [facility]. He has a walk-in shower. He does not have a seat. He has two small steps and a threshold to get in the house or a threshold. There is no railing. Treatment Goals Patient/Caregiver Goals be able to sail on boat, go for walks including trails, get back to biking (possibly getting electric), be able to exercise to lose wt PT-OP-C Subjective Start: 06/12/21 14:07 Freq: Status: Active Protocol: Document 09/24/21 11:20 [facility] (Rec: 09/24/21 12:11 [facility] [id number]) OP-PT Subjective Patient Comments Patient Comments Pt reports he is almost back to where he was before the walk. Still some tightness in L ant hip PT-OP-G Mobility & Gait Start: 06/12/21 14:07 Freq: Status: Active Protocol: Document 09/03/21 12:53 [facility] (Rec: 09/05/21 08:14 [facility] [id number]) OP Mobility Evaluation Bed Mobility Supine to and from Sit indep Transfers Sit to Stand pt kicks LLE out in front to avoid 90 deg for sit<>stand OP Gait Assessment Comments Gait Comments Pt amb w/FWW with dec LLE stance time and push off. PT-OP-J Posture/Palpation/Skin Start: 06/12/21 14:07 Freq: Status: Active Protocol: Document 09/03/21 12:53 [facility] (Rec: 09/05/21 08:14 [facility] [id number]) Posture Evaluation Comments Posture Comments fwd flexed trunk Skin Assessment Other Assessments Skin Assessment Comments swelling of LLE and brusiing around L hip PT-OP-K Range of Motion Start: 06/12/21 14:07 Freq: Status: Active Protocol: Document 06/19/21 10:30 MB (Rec: 06/19/21 12:22 MB [id number]) Hip Goniometric Range of Motion Hip ROM Limitations Comments Functional assessment only today d/t amount of training that needs to go into 45 minute eval and pre-op training: decreased left hip movement compared to the right with HS, gait, bed mobility and transfers and pt exhibits guarding behavior PT-OP-M Strength Start: 06/12/21 14:07 Freq: Status: Active Protocol: Document 09/03/21 12:53 [facility] (Rec: 09/05/21 08:14 [facility] [id number]) Hip Strength Hip Manual Muscle Testing Right Flexion (L2) 4- Good- External Rotation 4 Good Internal Rotation 5 Normal Left Flexion (L2) 3+ Fair+ External Rotation 3- Fair- Internal Rotation 3+ Fair+ Comments IR tested in neutral position and hip flex w/pt leaned back into hands to avoid pt going greater than 90 deg hip flex Knee Strength Knee Manual Muscle Testing Right Flexion (S2) 5 Normal Extension (L3) 5 Normal Left Flexion (S2) 4- Good- Extension (L3) 3 Fair Ankle/Foot Strength Ankle and Foot Manual Muscle Testing Left Dorsiflexion (L4) 4- Good- Plantarflexion (S1) 4- Good- Right Dorsiflexion (L4) 5 Normal Plantarflexion (S1) 5 Normal Comments seated PF testing B PT-OP-Q Treatments Start: 06/12/21 14:07 Freq: Status: Active Protocol: Document 09/24/21 11:20 [facility] (Rec: 09/24/21 12:11 [facility] [id number]) Gym Equipment Shuttle Recovery Unilateral Squats Details L Resistance 62# Shuttle Recovery Platform Stable Reps/Time 15 Bilateral Squats Resistance 112# Shuttle Recovery Platform Stable Reps/Time x15 Therapeutic Exercises Supine Exercises bridge Supine Exercise Name review to HEP Side bilateral Reps/Minutes x10 Comments cued neutral pelvis- good form pain free elongation extension Supine Exercise Name review HEP if needed for hip ext stretch Side left Reps/Minutes x5 Comments good feeling stretch on L Standing Exercises step downs Standing Exercise Name w/backwards step up Side left Equipment Used 5 in step Reps/Minutes 12 Comments rail prn step ups Standing Exercise Name w/backwards step down then step through Side left Equipment Used 5 in Reps/Minutes 12 Comments rail for balance prn hip ext Side bilateral Resistance AROM Reps/Minutes 12 Gait Training Gait Activity wt shifts Description fwd in mirror w/focus on wt accpetance onto each LE Level of Assistance mirror & cane Surface firm Treatment Focus posture and full wt shift Comments 1. fwd wt shift x12 B 2. fwd wt shift w/step thru x10 B Manual Therapy Treatment Soft Tissue Mobilization L hip flex STMs Body Location L iliacus, psoas, TFL, RF, ITB Mobilization Type Rolling,Strumming,Sustained Pressure Intensity/Depth Moderate Body Position Supine Comments strumming w/ER AROM and c/r into ER PT-OP-T Assessment and Plan Start: 06/12/21 14:07 Freq: Status: Active Protocol: Document 09/24/21 11:20 [facility] (Rec: 09/24/21 12:11 [facility] [id number]) Physical Therapy Assessment Goals 5 Short Term Goal (STG) Pt will be able to walk 1 mile w/o inc pain greater than 4/ 10 09/20/21: pt stated 40 min walk lately and also ramp w/ B HR on dock but might have over did, discomfort L adductor/hip flexor. STG Duration 11/03/21 progressing. Shelter Goal (LTG) Pt will be able to walk on trails w/walking sticks as needed w/o inc pain more than 2/10. LTG Duration 12/03/21 4 Short Term Goal (STG) Pt will score at least 25/30 on FGA to show improved balance to dec fall risk STG Duration 11/03/21 Almond Pan Finisher Goal (LTG) Pt will be able to go sailing on boat and go biking w/o concern for balance or have pain. LTG Duration 12/03/21 3 Short Term Goal (STG) Pt will be indep w/HEP fro strength, balance, gait and flexiblity. STG Duration 10/12/21 Shelter Goal (LTG) Pt will score at least 4+/5 BLE MMT to show improved strength to allow for improved functional ability and return to higher level activities. LTG Duration 12/03/21 2 Almond Pan Finisher Goal (LTG) Pt will perform 10 reps sit to stand without UE support in 30 sec to demonstrate improved functional hip strength and balance. LTG Duration 12/03/21 1 Impairment 15/80 Short Term Goal (STG) Pt will present with an improved LEFS score to at least 30/80 to show improved functional ability. STG Duration 10/22/21 Almond Pan Finisher Goal (LTG) Pt will present with an improved LEFS score to at least 55/80 to show improved functional ability. LTG Duration 12/03/21 Assessment Summary Assessment Pt did better with his wt shfits today w/better wt acceptance L. He was able to do 5 in step today with step ups and down today and use less rail use. He had improved ER on L side after manual treatment and felt less tension when just standing after manual. Physical Therapy Plan Frequency and Duration Frequency of Treatment 2x/Week Duration of Treatment 3 months Plan of Care Start Date 09/03/21 Plan of Care End Date 12/03/21 Next Visit Focus/Plan Next Note Type Treatment Note Next Visit Plan cont to work on gait mechanics & hip stability on SL LLE.
--- NOTE | 2021-09-27 11:15 | PT.OTN ---
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 he does feel that his legs are more even in length after L CHRISTOS. He has been compliant w/exercises. He was concerned about swelling but does note he has been sitting in dependent position a lot. IE:Pt has a history of two back surgeries in 2 1/2 years. He had ongoing left hip pain after both surgeries and PT had suspected underlying hip pathology. He finally got an appointment with Dr. Barger in March of 2021. He has a left THR scheduled on 06/26/2021 . He will have an posterior approach per handout in folder but pt does not recall what kind he will have. PMH: right foot surgery, right TKR, three lumbar surgeries including two fusions and left foot neuropathy. Pt is getting a RW at [employer] [facility] [facility] [employer] [facility] [employer]. He has a walk-in shower. He does not have a seat. He has two small steps and a threshold to get in the house or a threshold. There is no railing. Treatment Goals Patient/Caregiver Goals be able to sail on boat, go for walks including trails, get back to biking (possibly getting electric), be able to exercise to lose wt PT-OP-C Subjective Start: 06/12/21 14:07 Freq: Status: Active Protocol: Document 09/27/21 10:34 SP (Rec: 09/27/21 11:25 SP [id number]) OP-PT Subjective Patient Comments Patient Comments Pt reports he is almost back to where he was before the walk. Still some tightness in L ant quad and posterior gluts initially gets up. PT-OP-G Mobility & Gait Start: 06/12/21 14:07 Freq: Status: Active Protocol: Document 09/03/21 12:53 [facility] (Rec: 09/05/21 08:14 [facility] [id number]) OP Mobility Evaluation Bed Mobility Supine to and from Sit indep Transfers Sit to Stand pt kicks LLE out in front to avoid 90 deg for sit<>stand OP Gait Assessment Comments Gait Comments Pt amb w/FWW with dec LLE stance time and push off. PT-OP-J Posture/Palpation/Skin Start: 06/12/21 14:07 Freq: Status: Active Protocol: Document 09/03/21 12:53 [facility] (Rec: 09/05/21 08:14 [facility] [id number]) Posture Evaluation Comments Posture Comments fwd flexed trunk Skin Assessment Other Assessments Skin Assessment Comments swelling of LLE and brusiing around L hip PT-OP-K Range of Motion Start: 06/12/21 14:07 Freq: Status: Active Protocol: Document 06/19/21 10:30 MB (Rec: 06/19/21 12:22 MB [id number]) Hip Goniometric Range of Motion Hip ROM Limitations Comments Functional assessment only today d/t amount of training that needs to go into 45 minute eval and pre-op training: decreased left hip movement compared to the right with HS, gait, bed mobility and transfers and pt exhibits guarding behavior PT-OP-M Strength Start: 06/12/21 14:07 Freq: Status: Active Protocol: Document 09/03/21 12:53 [facility] (Rec: 09/05/21 08:14 [facility] [id number]) Hip Strength Hip Manual Muscle Testing Right Flexion (L2) 4- Good- External Rotation 4 Good Internal Rotation 5 Normal Left Flexion (L2) 3+ Fair+ External Rotation 3- Fair- Internal Rotation 3+ Fair+ Comments IR tested in neutral position and hip flex w/pt leaned back into hands to avoid pt going greater than 90 deg hip flex Knee Strength Knee Manual Muscle Testing Right Flexion (S2) 5 Normal Extension (L3) 5 Normal Left Flexion (S2) 4- Good- Extension (L3) 3 Fair Ankle/Foot Strength Ankle and Foot Manual Muscle Testing Left Dorsiflexion (L4) 4- Good- Plantarflexion (S1) 4- Good- Right Dorsiflexion (L4) 5 Normal Plantarflexion (S1) 5 Normal Comments seated PF testing B PT-OP-Q Treatments Start: 06/12/21 14:07 Freq: Status: Active Protocol: Document 09/27/21 10:34 SP (Rec: 09/27/21 11:25 SP [id number]) Gym Equipment Shuttle Recovery Unilateral Squats Details alternate BLE Resistance 62#> 75# Shuttle Recovery Platform Stable Reps/Time 2x15 (LLE quad shakiness but stable) Bilateral Squats Resistance 112#> 125# Shuttle Recovery Platform Stable Reps/Time 2x15 Therapeutic Exercises Supine Exercises bridge Supine Exercise Name review to HEP Side bilateral Reps/Minutes x10 Comments cued neutral pelvis, little extra hip abd fac- good form pain free elongation extension Supine Exercise Name review HEP if needed for hip ext stretch Side left Reps/Minutes x5 Comments good feeling stretch L anterior hip Sidelying Exercises hip abd Sidelying Exercise Name inPT Side left Comments max cues and support maintain on R side and alignment- challenged Standing Exercises step downs Standing Exercise Name w/backwards step up Side left Equipment Used 8 in, min on rail Reps/Minutes 12 Comments rail prn step ups Standing Exercise Name w/backwards step down then step through Side left Equipment Used 8 in, min on rail Reps/Minutes 12 Comments rail for balance prn Gait Training Gait Activity francisco Description LLE wt acceptance/ stability Device Used rail contact PRN Level of Assistance SBA- CGA Surface firm Treatment Focus posture and full wt shift Comments 1. fwd wt shift x10 L push off glut fac into R 2. fwd wt shift w/step thru x10 B over francisco back Able complete x3 no UE contact - ed do over seam on floor at home HEP next to counter wt shifts Description fwd in mirror w/focus on wt accpetance onto each LE Level of Assistance mirror & cane Surface firm Treatment Focus posture and full wt shift Comments 1. fwd wt shift x12 B 2. fwd wt shift w/step thru x10 B Manual Therapy Treatment Soft Tissue Mobilization R TFL, prox quad Body Location L quad, hip flexors, TFL, glut med Mobilization Type Myofascial Release,Strumming, Sustained Pressure Intensity/Depth Moderate Body Position Supine Comments manual and discussion can use ball on wall has used in past. PT-OP-T Assessment and Plan Start: 06/12/21 14:07 Freq: Status: Active Protocol: Document 09/27/21 10:34 SP (Rec: 09/27/21 11:25 SP [id number]) Physical Therapy Assessment Goals 5 Short Term Goal (STG) Pt will be able to walk 1 mile w/o inc pain greater than 4/ 10 09/20/21: pt stated 40 min walk lately and also ramp w/ B HR on dock but might have over did, discomfort L adductor/hip flexor. 09/27/21: Yesterday at [employer] using SPC about 20 min then grocery store about 6/10 pain. STG Duration 11/03/21 progressing. Mcc Goal (LTG) Pt will be able to walk on trails w/walking sticks as needed w/o inc pain more than 2/10. LTG Duration 12/03/21 4 Short Term Goal (STG) Pt will score at least 25/30 on FGA to show improved balance to dec fall risk STG Duration 11/03/21 Mcc Goal (LTG) Pt will be able to go sailing on boat and go biking w/o concern for balance or have pain. LTG Duration 12/03/21 3 Short Term Goal (STG) Pt will be indep w/HEP fro strength, balance, gait and flexiblity. STG Duration 10/12/21 Bi Tri Operator Goal (LTG) Pt will score at least 4+/5 BLE MMT to show improved strength to allow for improved functional ability and return to higher level activities. LTG Duration 12/03/21 2 Bi Tri Operator Goal (LTG) Pt will perform 10 reps sit to stand without UE support in 30 sec to demonstrate improved functional hip strength and balance. LTG Duration 12/03/21 1 Impairment 15/80 Short Term Goal (STG) Pt will present with an improved LEFS score to at least 30/80 to show improved functional ability. STG Duration 10/22/21 Mcc Goal (LTG) Pt will present with an improved LEFS score to at least 55/80 to show improved functional ability. LTG Duration 12/03/21 Assessment Summary Assessment Pt improve with wt shift glut/ hip abd fac able to complete over/ back francisco today light to no contact last 3 reps. He was able to complete 5 step ups 8 step light contact BHR, shaky L quad but able feel glut firing ascend/descend. Physical Therapy Plan Frequency and Duration Frequency of Treatment 2x/Week Duration of Treatment 3 months Plan of Care Start Date 09/03/21 Plan of Care End Date 12/03/21 Therapeutic Interventions Therapeutic Interventions Aquatic Therapy,Balance Training,Gait Training,Home Exercise Program,Joint Mobilizations,Manual Therapy, Neuromuscular Re-education, Patient/Caregiver Education, Self-Care/Home Management,Soft Tissue Mobilization,Taping, Therapeutic Activities, Therapeutic Exercises Modalities Cold Pack/Ice Massage,Electric Stimulation,Hot Packs Next Visit Focus/Plan Next Note Type Treatment Note Next Visit Plan PN next tx: 9th visit, check francisco over/ back guy at home added last tx to progress bal/ strength. POC: cont to work on gait mechanics & hip stability on SL LLE.
--- NOTE | 2021-10-01 12:15 | PT.OTN ---
Current Diagnoses Unilateral primary osteoarthritis, left hip (10/01/21) Physical Therapy Treatment Note PT-OP-A Visit Information Start: 06/12/21 14:07 Freq: Status: Active Protocol: Document 10/01/21 09:39 [facility] (Rec: 10/01/21 12:15 [facility] [id number]) Out-Patient Physical Therapy Visit Information Visit Information Visit Type Progress Note Visit Note 06/04 Visit Start Time 11:23 Visit Stop Time 12:03 Total Visit Minutes 40 Visit Number 10 Number of FANS CLERK Visits 0 PT-OP-B Current Condition Start: 06/12/21 14:07 Freq: Status: Active Protocol: Document 09/03/21 12:53 [facility] (Rec: 09/05/21 08:17 [facility] [id number]) Current Condition History of Current Condition Onset Date 08/28/21 Current Complaints L CHRISTOS History of Current Condition 09/03: Pt had L post approach CHRISTOS and is taking pain meds to manage pain. he does feel that his legs are more even in length after L CHRISTOS. He has been compliant w/exercises. He was concerned about swelling but does note he has been sitting in dependent position a lot. IE:Pt has a history of two back surgeries in 2 1/2 years. He had ongoing left hip pain after both surgeries and PT had suspected underlying hip pathology. He finally got an appointment with Dr. Barger in March of 2021. He has a left THR scheduled on 06/26/2021 . He will have an posterior approach per handout in folder but pt does not recall what kind he will have. PMH: right foot surgery, right TKR, three lumbar surgeries including two fusions and left foot neuropathy. Pt is getting a RW at [employer]. He has a walk-in shower. He does not have a seat. He has two small steps and a threshold to get in the house or a threshold. There is no railing. Treatment Goals Patient/Caregiver Goals be able to sail on boat, go for walks including trails, get back to biking (possibly getting electric), be able to exercise to lose wt PT-OP-C Subjective Start: 06/12/21 14:07 Freq: Status: Active Protocol: Document 10/01/21 09:39 [facility] (Rec: 10/01/21 12:15 [facility] [id number]) OP-PT Subjective Patient Comments Patient Comments pt reports pain gets about to 6/10 when moving Patient Questionnaires Lower Extremity Functional Scale LEFS Score 24/80 PT-OP-E Functional Tests Start: 10/01/21 09:39 Freq: Status: Active Protocol: Document 10/01/21 09:39 [facility] (Rec: 10/01/21 12:15 [facility] [id number]) Functional Tests Five Times Sit to Stand Test Score 6x w/UEs Functional Gait Assessment Score 16 PT-OP-G Mobility & Gait Start: 06/12/21 14:07 Freq: Status: Active Protocol: Document 09/03/21 12:53 [facility] (Rec: 09/05/21 08:14 [facility] [id number]) OP Mobility Evaluation Bed Mobility Supine to and from Sit indep Transfers Sit to Stand pt kicks LLE out in front to avoid 90 deg for sit<>stand OP Gait Assessment Comments Gait Comments Pt amb w/FWW with dec LLE stance time and push off. PT-OP-J Posture/Palpation/Skin Start: 06/12/21 14:07 Freq: Status: Active Protocol: Document 10/01/21 09:39 [facility] (Rec: 10/01/21 12:15 [facility] [id number]) Posture Evaluation [facility] Postural Classification System Lumbar Protective Mechanism Left AP 1 Lumbar Protective Mechanism Right AP 1 Lumbar Protective Mechanism Left PA 1 Lumbar Protective Mechanism Right PA 1 PT-OP-K Range of Motion Start: 06/12/21 14:07 Freq: Status: Active Protocol: Document 06/19/21 10:30 MB (Rec: 06/19/21 12:22 MB [id number]) Hip Goniometric Range of Motion Hip ROM Limitations Comments Functional assessment only today d/t amount of training that needs to go into 45 minute eval and pre-op training: decreased left hip movement compared to the right with HS, gait, bed mobility and transfers and pt exhibits guarding behavior PT-OP-M Strength Start: 06/12/21 14:07 Freq: Status: Active Protocol: Document 10/01/21 09:39 [facility] (Rec: 10/01/21 12:15 [facility] [id number]) Hip Strength Hip Manual Muscle Testing Right Flexion (L2) 4 Good External Rotation 5 Normal Internal Rotation 5 Normal Left Flexion (L2) 4 Good Abduction 3 Fair External Rotation 3+ Fair+ Internal Rotation 4 Good Comments IR tested in neutral position and hip flex w/pt leaned back into hands to avoid pt going greater than 90 deg hip flex Knee Strength Knee Manual Muscle Testing Right Flexion (S2) 5 Normal Extension (L3) 5 Normal Left Flexion (S2) 4+ Good+ Extension (L3) 4+ Good+ Ankle/Foot Strength Ankle and Foot Manual Muscle Testing Left Dorsiflexion (L4) 4- Good- Plantarflexion (S1) 4+ Good+ Right Dorsiflexion (L4) 5 Normal Plantarflexion (S1) 5 Normal Comments seated PF testing B PT-OP-Q Treatments Start: 06/12/21 14:07 Freq: Status: Active Protocol: Document 10/01/21 09:39 [facility] (Rec: 10/01/21 12:15 [facility] [id number]) Gait Training Gait Activity francisco Description LLE wt acceptance/ stability Device Used rail contact PRN Level of Assistance SBA- CGA Surface firm Treatment Focus posture and full wt shift Comments 1. fwd/back step over francisco x10 B 2. fwd step thru hurdles (6)x8 gait Device Used none Distance/Duration 200ft Comments working on sequence and posture w/gait and no fwd flex when WB LLE wt shifts Description fwd in mirror w/focus on wt accpetance onto each LE Level of Assistance mirror Surface firm Treatment Focus posture and full wt shift Comments 1. fwd wt shift x12 B Manual Therapy Treatment Soft Tissue Mobilization L hip flex STMs Body Location L iliacus, TFL, RF, ITB Mobilization Type Rolling,Strumming,Sustained Pressure Intensity/Depth Moderate Body Position Supine Comments ER AROM PT-OP-T Assessment and Plan Start: 06/12/21 14:07 Freq: Status: Active Protocol: Document 10/01/21 09:39 [facility] (Rec: 10/01/21 12:15 [facility] [id number]) Physical Therapy Assessment Goals 5 Short Term Goal (STG) Pt will be able to walk 1 mile w/o inc pain greater than 4/ 10 09/20/21: pt stated 40 min walk lately and also ramp w/ B HR on dock but might have over did, discomfort L adductor/hip flexor. 09/27/21: Yesterday at [facility] [employer] using SPC about 20 min then grocery store about 6/10 pain. 10/01-15-25 min walk 6/10 STG Duration 11/03/21 progressing. Mcfp Goal (LTG) Pt will be able to walk on trails w/walking sticks as needed w/o inc pain more than 2/10. LTG Duration 12/03/21 4 Short Term Goal (STG) Pt will score at least 25/30 on FGA to show improved balance to dec fall risk 10/01- STG Duration 11/03/21 Career Coach Goal (LTG) Pt will be able to go sailing on boat and go biking w/o concern for balance or have pain. LTG Duration 12/03/21 3 Short Term Goal (STG) Pt will be indep w/HEP fro strength, balance, gait and flexiblity. STG Duration achie progressing as able Career Coach Goal (LTG) Pt will score at least 4+/5 BLE MMT to show improved strength to allow for improved functional ability and return to higher level activities. 10/01-improved LTG Duration 12/03/21 2 Mcfp Goal (LTG) Pt will perform 10 reps sit to stand without UE support in 30 sec to demonstrate improved functional hip strength and balance. 10/01- w/UEs 6x LTG Duration 12/03/21 1 Impairment 15/80 Short Term Goal (STG) Pt will present with an improved LEFS score to at least 30/80 to show improved functional ability. 10-01-24, improved STG Duration 10/22/21 Career Coach Goal (LTG) Pt will present with an improved LEFS score to at least 55/80 to show improved functional ability. LTG Duration 12/03/21 Assessment Summary Assessment pt is making good improvements w/gait, balance and strength. he is able to amb w/o cane but does have dec stability on LLE in balance. He Physical Therapy Plan Frequency and Duration Frequency of Treatment 2x/Week Duration of Treatment 3 months Plan of Care Start Date 09/03/21 Plan of Care End Date 12/03/21 Therapeutic Interventions Therapeutic Interventions Aquatic Therapy,Balance Training,Gait Training,Home Exercise Program,Joint Mobilizations,Manual Therapy, Neuromuscular Re-education, Patient/Caregiver Education, Self-Care/Home Management,Soft Tissue Mobilization,Taping, Therapeutic Activities, Therapeutic Exercises Modalities Cold Pack/Ice Massage,Electric Stimulation,Hot Packs Next Visit Focus/Plan Next Note Type Treatment Note Next Visit Plan cont to work on gait mechanics & hip stability on SL LLE.
--- NOTE | 2021-10-04 11:15 | PT.OTN ---
Current Diagnoses Unilateral primary osteoarthritis, left hip (10/04/21) Physical Therapy Treatment Note PT-OP-A Visit Information Start: 06/12/21 14:07 Freq: Status: Active Protocol: Document 10/04/21 10:33 SP (Rec: 10/04/21 11:27 SP [id number]) Out-Patient Physical Therapy Visit Information Visit Information Visit Type Treatment Note Visit Note 07/05 Visit Start Time 10:33 Visit Stop Time 11:15 Total Visit Minutes 42 Visit Number 11 Number of BUSINESS SPECIALIST Visits 1 Evaluation Information Evaluation Date 06/19/21 Precautions Precautions L Posterior hip precuations PT-OP-B Current Condition Start: 06/12/21 14:07 Freq: Status: Active Protocol: Document 09/03/21 12:53 LR (Rec: 09/05/21 08:17 [facility] [id number]) Current Condition History of Current Condition Onset Date 08/28/21 Current Complaints L CHRISTOS History of Current Condition 09/03: Pt had L post approach CHRISTOS and is taking pain meds to manage pain. he does feel that his legs are more even in length after L CHRISTOS. He has been compliant w/exercises. He was concerned about swelling but does note he has been sitting in dependent position a lot. IE:Pt has a history of two back surgeries in 2 1/2 years. He had ongoing left hip pain after both surgeries and PT had suspected underlying hip pathology. He finally got an appointment with Dr. Barger in March of 2021. He has a left THR scheduled on 06/26/2021 . He will have an posterior approach per handout in folder but pt does not recall what kind he will have. PMH: right foot surgery, right TKR, three lumbar surgeries including two fusions and left foot neuropathy. Pt is getting a RW at [facility]. He has a walk-in shower. He does not have a seat. He has two small steps and a threshold to get in the house or a threshold. There is no railing. Treatment Goals Patient/Caregiver Goals be able to sail on boat, go for walks including trails, get back to biking (possibly getting electric), be able to exercise to lose wt PT-OP-C Subjective Start: 06/12/21 14:07 Freq: Status: Active Protocol: Document 10/04/21 10:33 SP (Rec: 10/04/21 11:27 SP [id number]) OP-PT Subjective Patient Comments Patient Comments Pt reports felt pretty good after last tx. Has added 15-20 min on desk bike with elevation on seat at home with good positioning >90 deg hip flexion, armaan if can't get outside walk. He is walking about 15-20 min over at [facility] over level surfaces not dock yet. Is doing stairs again and working on SLS but can't hold unsupported and doing wt shifts to step through. Pt states see ortho soon. Patient Reported Progress Improving PT-OP-E Functional Tests Start: 10/01/21 09:39 Freq: Status: Active Protocol: Document 10/01/21 09:39 [facility] (Rec: 10/01/21 12:15 [facility] [id number]) Functional Tests Five Times Sit to Stand Test Score 6x w/UEs Functional Gait Assessment Score 16 PT-OP-G Mobility & Gait Start: 06/12/21 14:07 Freq: Status: Active Protocol: Document 09/03/21 12:53 [facility] (Rec: 09/05/21 08:14 [facility] [id number]) OP Mobility Evaluation Bed Mobility Supine to and from Sit indep Transfers Sit to Stand pt kicks LLE out in front to avoid 90 deg for sit<>stand OP Gait Assessment Comments Gait Comments Pt amb w/FWW with dec LLE stance time and push off. PT-OP-J Posture/Palpation/Skin Start: 06/12/21 14:07 Freq: Status: Active Protocol: Document 10/01/21 09:39 [facility] (Rec: 10/01/21 12:15 [facility] [id number]) Posture Evaluation Marcelle Postural Classification System Lumbar Protective Mechanism Left AP 1 Lumbar Protective Mechanism Right AP 1 Lumbar Protective Mechanism Left PA 1 Lumbar Protective Mechanism Right PA 1 PT-OP-K Range of Motion Start: 06/12/21 14:07 Freq: Status: Active Protocol: Document 06/19/21 10:30 MB (Rec: 06/19/21 12:22 MB [id number]) Hip Goniometric Range of Motion Hip ROM Limitations Comments Functional assessment only today d/t amount of training that needs to go into 45 minute eval and pre-op training: decreased left hip movement compared to the right with HS, gait, bed mobility and transfers and pt exhibits guarding behavior PT-OP-M Strength Start: 06/12/21 14:07 Freq: Status: Active Protocol: Document 10/01/21 09:39 [facility] (Rec: 10/01/21 12:15 [facility] [id number]) Hip Strength Hip Manual Muscle Testing Right Flexion (L2) 4 Good External Rotation 5 Normal Internal Rotation 5 Normal Left Flexion (L2) 4 Good Abduction 3 Fair External Rotation 3+ Fair+ Internal Rotation 4 Good Comments IR tested in neutral position and hip flex w/pt leaned back into hands to avoid pt going greater than 90 deg hip flex Knee Strength Knee Manual Muscle Testing Right Flexion (S2) 5 Normal Extension (L3) 5 Normal Left Flexion (S2) 4+ Good+ Extension (L3) 4+ Good+ Ankle/Foot Strength Ankle and Foot Manual Muscle Testing Left Dorsiflexion (L4) 4- Good- Plantarflexion (S1) 4+ Good+ Right Dorsiflexion (L4) 5 Normal Plantarflexion (S1) 5 Normal Comments seated PF testing B PT-OP-Q Treatments Start: 06/12/21 14:07 Freq: Status: Active Protocol: Document 10/04/21 10:33 SP (Rec: 10/04/21 11:27 SP [id number]) Cardio Equipment Bicycle (Upright) Duration (Minutes) 8 Resistance 15 Seat Position 11 Gym Equipment Shuttle Recovery Unilateral Squats Details alternate BLE Resistance 75# LLE, 75#> 87# Shuttle Recovery Platform Stable Reps/Time 2x15 (improved LLE stability slow pacing) Bilateral Squats Details good knee alignment Resistance 125# Shuttle Recovery Platform Stable Reps/Time 2x15 Therapeutic Exercises Standing Exercises step ups Standing Exercise Name w/backwards step down then step through Side bilateral Equipment Used 6>8 , min on rail Reps/Minutes 12 Comments rail for support, cued knee alignment, foot forward, glut fac Neuro Re-Education Treatment Balance Activities hurdles Details f/side stepping Surface carpet Equipment SPC Reps/Duration 2 laps each direction Comments single francisco over/back wt acceptance then receiprocal stepping SPC in RUE, R foot caught 1 Min recovery and SPC. Balance in corner Details added HEP Surface carpet Equipment back corner, chair front- hands hover back chair Comments Romberg semi tandem head turn EO and EC 30s each foot position. PT-OP-T Assessment and Plan Start: 06/12/21 14:07 Freq: Status: Active Protocol: Document 10/04/21 10:33 SP (Rec: 10/04/21 11:27 SP [id number]) Physical Therapy Assessment Goals 5 Short Term Goal (STG) Pt will be able to walk 1 mile w/o inc pain greater than 4/ 10 09/20/21: pt stated 40 min walk lately and also ramp w/ B HR on dock but might have over did, discomfort L adductor/hip flexor. 09/27/21: Yesterday at [employer] using SPC about 20 min then grocery store about 6/10 pain. 10/01-15-25 min walk 6/10 STG Duration 11/03/21 progressing. Checkout Supervisor Goal (LTG) Pt will be able to walk on trails w/walking sticks as needed w/o inc pain more than 2/10. LTG Duration 12/03/21 4 Short Term Goal (STG) Pt will score at least 25/30 on FGA to show improved balance to dec fall risk 10/01- STG Duration 11/03/21 Checkout Supervisor Goal (LTG) Pt will be able to go sailing on boat and go biking w/o concern for balance or have pain. LTG Duration 12/03/21 3 Short Term Goal (STG) Pt will be indep w/HEP fro strength, balance, gait and flexiblity. STG Duration achied progressing as able Checkout Supervisor Goal (LTG) Pt will score at least 4+/5 BLE MMT to show improved strength to allow for improved functional ability and return to higher level activities. 10/01-improved LTG Duration 12/03/21 2 Fpc Goal (LTG) Pt will perform 10 reps sit to stand without UE support in 30 sec to demonstrate improved functional hip strength and balance. 10/01- w/UEs 6x LTG Duration 12/03/21 1 Impairment 15/80 Short Term Goal (STG) Pt will present with an improved LEFS score to at least 30/80 to show improved functional ability. --24, improved STG Duration 10/22/21 Checkout Supervisor Goal (LTG) Pt will present with an improved LEFS score to at least 55/80 to show improved functional ability. LTG Duration 12/03/21 Assessment Summary Assessment Pt improved heel toe, gait mechanics post ther ex and francisco stepping this tx. Noted L quad fac concentric/ eccentric with cues midfoot/ heel COG during step up/ downs glut fac helped decrease R anterior knee discomfort lessen. Pt improved EC semitandem corner balance unsupported to add home, provided HO. Physical Therapy Plan Frequency and Duration Frequency of Treatment 2x/Week Duration of Treatment 3 months Plan of Care Start Date 09/03/21 Plan of Care End Date 12/03/21 Therapeutic Interventions Therapeutic Interventions Aquatic Therapy,Balance Training,Gait Training,Home Exercise Program,Joint Mobilizations,Manual Therapy, Neuromuscular Re-education, Patient/Caregiver Education, Self-Care/Home Management,Soft Tissue Mobilization,Taping, Therapeutic Activities, Therapeutic Exercises Modalities Cold Pack/Ice Massage,Electric Stimulation,Hot Packs Next Visit Focus/Plan Next Note Type Treatment Note Next Visit Plan Continue francisco stepping for wt acceptanace and quad/ hip abd fac. cont to work on gait mechanics & hip stability on SL LLE.
--- NOTE | 2021-10-08 12:15 | PT.OTN ---
Current Diagnoses Unilateral primary osteoarthritis, left hip (10/08/21) Physical Therapy Treatment Note PT-OP-A Visit Information Start: 06/12/21 14:07 Freq: Status: Active Protocol: Document 10/08/21 12:08 [facility] (Rec: 10/08/21 12:15 [facility] [id number]) Out-Patient Physical Therapy Visit Information Visit Information Visit Type Treatment Note Visit Note 08/02 Visit Start Time 11: Visit Stop Time 12:01 Total Visit Minutes 39 Visit Number 12 Number of FLOATING LABOR GANG SUPERVISOR Visits 0 PT-OP-B Current Condition Start: 06/12/21 14:07 Freq: Status: Active Protocol: Document 09/03/21 12:53 [facility] (Rec: 09/05/21 08:17 [facility] [id number]) Current Condition History of Current Condition Onset Date 08/28/21 Current Complaints L CHRISTOS History of Current Condition 09/03: Pt had L post approach CHRISTOS and is taking pain meds to manage pain. he does feel that his legs are more even in length after L CHRISTOS. He has been compliant w/exercises. He was concerned about swelling but does note he has been sitting in dependent position a lot. IE:Pt has a history of two back surgeries in 2 1/2 years. He had ongoing left hip pain after both surgeries and PT had suspected underlying hip pathology. He finally got an appointment with Dr. Barger in March of 2021. He has a left THR scheduled on 06/26/2021 . He will have an posterior approach per handout in folder but pt does not recall what kind he will have. PMH: right foot surgery, right TKR, three lumbar surgeries including two fusions and left foot neuropathy. Pt is getting a RW at [facility]. He has a walk-in shower. He does not have a seat. He has two small steps and a threshold to get in the house or a threshold. There is no railing. Treatment Goals Patient/Caregiver Goals be able to sail on boat, go for walks including trails, get back to biking (possibly getting electric), be able to exercise to lose wt PT-OP-C Subjective Start: 06/12/21 14:07 Freq: Status: Active Protocol: Document 10/08/21 12:08 [facility] (Rec: 10/08/21 12:15 [facility] [id number]) OP-PT Subjective Patient Comments Patient Comments Pt notes he was sore evening but slept great that night and felt pretty good friday. Hew as able to walk to his boat and get on it this weekend. PT-OP-E Functional Tests Start: 10/01/21 09:39 Freq: Status: Active Protocol: Document 10/01/21 09:39 [facility] (Rec: 10/01/21 12:15 [facility] [id number]) Functional Tests Five Times Sit to Stand Test Score 6x w/UEs Functional Gait Assessment Score 16 PT-OP-G Mobility & Gait Start: 06/12/21 14:07 Freq: Status: Active Protocol: Document 09/03/21 12:53 [facility] (Rec: 09/05/21 08:14 [facility] [id number]) OP Mobility Evaluation Bed Mobility Supine to and from Sit indep Transfers Sit to Stand pt kicks LLE out in front to avoid 90 deg for sit<>stand OP Gait Assessment Comments Gait Comments Pt amb w/FWW with dec LLE stance time and push off. PT-OP-J Posture/Palpation/Skin Start: 06/12/21 14:07 Freq: Status: Active Protocol: Document 10/01/21 09:39 [facility] (Rec: 10/01/21 12:15 [facility] [id number]) Posture Evaluation Marcelle Postural Classification System Lumbar Protective Mechanism Left AP 1 Lumbar Protective Mechanism Right AP 1 Lumbar Protective Mechanism Left PA 1 Lumbar Protective Mechanism Right PA 1 PT-OP-K Range of Motion Start: 06/12/21 14:07 Freq: Status: Active Protocol: Document 06/19/21 10:30 MB (Rec: 06/19/21 12:22 MB [id number]) Hip Goniometric Range of Motion Hip ROM Limitations Comments Functional assessment only today d/t amount of training that needs to go into 45 minute eval and pre-op training: decreased left hip movement compared to the right with HS, gait, bed mobility and transfers and pt exhibits guarding behavior PT-OP-M Strength Start: 06/12/21 14:07 Freq: Status: Active Protocol: Document 10/01/21 09:39 [facility] (Rec: 10/01/21 12:15 [facility] [id number]) Hip Strength Hip Manual Muscle Testing Right Flexion (L2) 4 Good External Rotation 5 Normal Internal Rotation 5 Normal Left Flexion (L2) 4 Good Abduction 3 Fair External Rotation 3+ Fair+ Internal Rotation 4 Good Comments IR tested in neutral position and hip flex w/pt leaned back into hands to avoid pt going greater than 90 deg hip flex Knee Strength Knee Manual Muscle Testing Right Flexion (S2) 5 Normal Extension (L3) 5 Normal Left Flexion (S2) 4+ Good+ Extension (L3) 4+ Good+ Ankle/Foot Strength Ankle and Foot Manual Muscle Testing Left Dorsiflexion (L4) 4- Good- Plantarflexion (S1) 4+ Good+ Right Dorsiflexion (L4) 5 Normal Plantarflexion (S1) 5 Normal Comments seated PF testing B PT-OP-Q Treatments Start: 06/12/21 14:07 Freq: Status: Active Protocol: Document 10/08/21 12:08 [facility] (Rec: 10/08/21 12:15 [facility] [id number]) Gym Equipment Shuttle Balance red clips Details progressive dec UE use Comments fWd & side: WBOS & NBOS fwd: staggered stance B Manual Therapy Treatment Soft Tissue Mobilization scar Body Location L Mobilization Type Myofascial Release,Rolling, Strumming Intensity/Depth Moderate Body Position Sidelying glutes Body Location L Mobilization Type Rolling,Strumming,Sustained Pressure Intensity/Depth Moderate Body Position Sidelying Neuro Re-Education Treatment Balance Activities SL Comments 1. roll of ball under foot 2. SLS trials hurdles Equipment none Comments 1. fwd over 6 hurdles reciprocally x8 2. sidestep over 6 hurdles x2 B PT-OP-T Assessment and Plan Start: 06/12/21 14:07 Freq: Status: Active Protocol: Document 10/08/21 12:08 [facility] (Rec: 10/08/21 12:15 [facility] [id number]) Physical Therapy Assessment Goals 5 Short Term Goal (STG) Pt will be able to walk 1 mile w/o inc pain greater than 4/ 10 09/20/21: pt stated 40 min walk lately and also ramp w/ B HR on dock but might have over did, discomfort L adductor/hip flexor. 09/27/21: Yesterday at [employer] using SPC about 20 min then grocery store about 6/10 pain. 10/01-15-25 min walk 6/10 STG Duration 11/03/21 progressing. Mcfp Goal (LTG) Pt will be able to walk on trails w/walking sticks as needed w/o inc pain more than 2/10. LTG Duration 12/03/21 4 Short Term Goal (STG) Pt will score at least 25/30 on FGA to show improved balance to dec fall risk 10/01- STG Duration 11/03/21 Buckle Coverer Goal (LTG) Pt will be able to go sailing on boat and go biking w/o concern for balance or have pain. LTG Duration 12/03/21 3 Short Term Goal (STG) Pt will be indep w/HEP fro strength, balance, gait and flexiblity. STG Duration achied progressing as able Mcfp Goal (LTG) Pt will score at least 4+/5 BLE MMT to show improved strength to allow for improved functional ability and return to higher level activities. 10/01-improved LTG Duration 12/03/21 2 Buckle Coverer Goal (LTG) Pt will perform 10 reps sit to stand without UE support in 30 sec to demonstrate improved functional hip strength and balance. 10/01- w/UEs 6x LTG Duration 12/03/21 1 Impairment 15/80 Short Term Goal (STG) Pt will present with an improved LEFS score to at least 30/80 to show improved functional ability. 10-01-, improved STG Duration 10/22/21 Buckle Coverer Goal (LTG) Pt will present with an improved LEFS score to at least 55/80 to show improved functional ability. LTG Duration 12/03/21 Assessment Summary Assessment Pt is improving w/his balance but is still having difficulty stabilizing still in SL. His gait has imrpoved overall. Improved soft tissue and scar tissue mobility w/manual treatment. Physical Therapy Plan Frequency and Duration Frequency of Treatment 2x/Week Duration of Treatment 3 months Plan of Care Start Date 09/03/21 Plan of Care End Date 12/03/21 Next Visit Focus/Plan Next Note Type Treatment Note Next Visit Plan manual for glutes & scar tissue,Continue francisco stepping for wt acceptanace and quad/ hip abd fac. cont to work on gait mechanics & hip stability on SL LLE.
--- NOTE | 2021-10-11 11:15 | PT.OTN ---
Current Diagnoses Unilateral primary osteoarthritis, left hip (10/08/21) Physical Therapy Treatment Note PT-OP-A Visit Information Start: 06/12/21 14:07 Freq: Status: Active Protocol: Document 10/11/21 10:33 SP (Rec: 10/11/21 11:31 SP [id number]) Out-Patient Physical Therapy Visit Information Visit Information Visit Type Treatment Note Visit Note 09/02 Visit Start Time 10:33 Visit Stop Time 15:15 Total Visit Minutes 42 Visit Number 13 Number of INSTALLER Visits 1 Evaluation Information Evaluation Date 06/19/21 Precautions Precautions L Posterior hip precuations PT-OP-B Current Condition Start: 06/12/21 14:07 Freq: Status: Active Protocol: Document 09/03/21 12:53 LR (Rec: 09/05/21 08:17 [facility] [id number]) Current Condition History of Current Condition Onset Date 08/28/21 Current Complaints L CHRISTOS History of Current Condition 09/03: Pt had L post approach CHRISTOS and is taking pain meds to manage pain. he does feel that his legs are more even in length after L CHRISTOS. He has been compliant w/exercises. He was concerned about swelling but does note he has been sitting in dependent position a lot. IE:Pt has a history of two back surgeries in 2 1/2 years. He had ongoing left hip pain after both surgeries and PT had suspected underlying hip pathology. He finally got an appointment with Dr. Barger in March of 2021. He has a left THR scheduled on 06/26/2021 . He will have an posterior approach per handout in folder but pt does not recall what kind he will have. PMH: right foot surgery, right TKR, three lumbar surgeries including two fusions and left foot neuropathy. Pt is getting a RW at [facility]. He has a walk-in shower. He does not have a seat. He has two small steps and a threshold to get in the house or a threshold. There is no railing. Treatment Goals Patient/Caregiver Goals be able to sail on boat, go for walks including trails, get back to biking (possibly getting electric), be able to exercise to lose wt PT-OP-C Subjective Start: 06/12/21 14:07 Freq: Status: Active Protocol: Document 10/11/21 10:33 SP (Rec: 10/11/21 11:31 SP [id number]) OP-PT Subjective Patient Comments Patient Comments Pt saw ortho and was pleased with progress, next follow up end October. Pt states complika PT-OP-E Functional Tests Start: 10/01/21 09:39 Freq: Status: Active Protocol: Document 10/01/21 09:39 [facility] (Rec: 10/01/21 12:15 [facility] [id number]) Functional Tests Five Times Sit to Stand Test Score 6x w/UEs Functional Gait Assessment Score 16 PT-OP-G Mobility & Gait Start: 06/12/21 14:07 Freq: Status: Active Protocol: Document 09/03/21 12:53 [facility] (Rec: 09/05/21 08:14 [facility] [id number]) OP Mobility Evaluation Bed Mobility Supine to and from Sit indep Transfers Sit to Stand pt kicks LLE out in front to avoid 90 deg for sit<>stand OP Gait Assessment Comments Gait Comments Pt amb w/FWW with dec LLE stance time and push off. PT-OP-J Posture/Palpation/Skin Start: 06/12/21 14:07 Freq: Status: Active Protocol: Document 10/01/21 09:39 [facility] (Rec: 10/01/21 12:15 [facility] [id number]) Posture Evaluation Marcelle Postural Classification System Lumbar Protective Mechanism Left AP 1 Lumbar Protective Mechanism Right AP 1 Lumbar Protective Mechanism Left PA 1 Lumbar Protective Mechanism Right PA 1 PT-OP-K Range of Motion Start: 06/12/21 14:07 Freq: Status: Active Protocol: Document 06/19/21 10:30 MB (Rec: 06/19/21 12:22 MB [id number]) Hip Goniometric Range of Motion Hip ROM Limitations Comments Functional assessment only today d/t amount of training that needs to go into 45 minute eval and pre-op training: decreased left hip movement compared to the right with HS, gait, bed mobility and transfers and pt exhibits guarding behavior PT-OP-M Strength Start: 06/12/21 14:07 Freq: Status: Active Protocol: Document 10/01/21 09:39 [facility] (Rec: 10/01/21 12:15 [facility] [id number]) Hip Strength Hip Manual Muscle Testing Right Flexion (L2) 4 Good External Rotation 5 Normal Internal Rotation 5 Normal Left Flexion (L2) 4 Good Abduction 3 Fair External Rotation 3+ Fair+ Internal Rotation 4 Good Comments IR tested in neutral position and hip flex w/pt leaned back into hands to avoid pt going greater than 90 deg hip flex Knee Strength Knee Manual Muscle Testing Right Flexion (S2) 5 Normal Extension (L3) 5 Normal Left Flexion (S2) 4+ Good+ Extension (L3) 4+ Good+ Ankle/Foot Strength Ankle and Foot Manual Muscle Testing Left Dorsiflexion (L4) 4- Good- Plantarflexion (S1) 4+ Good+ Right Dorsiflexion (L4) 5 Normal Plantarflexion (S1) 5 Normal Comments seated PF testing B PT-OP-Q Treatments Start: 06/12/21 14:07 Freq: Status: Active Protocol: Document 10/11/21 10:33 SP (Rec: 10/11/21 11:31 SP [id number]) Cardio Equipment Bicycle (Upright) Duration (Minutes) 8 Resistance 15 Seat Position 11 Other more tiring today, 50 ROM Gym Equipment Shuttle Recovery Unilateral Squats Details alternate BLE, good knee alignment leg up and down pos. Resistance 87# Shuttle Recovery Platform Stable Reps/Time x15 (improved LLE stability slow pacing) Bilateral Squats Details good knee alignment see insoles Resistance 125# Shuttle Recovery Platform Stable Reps/Time 2x20 Gait Training Gait Activity stair mgt Description LLE wt acceptance Device Used R HR as needed ascend/descend Level of Assistance CGA Distance/Duration 28 MAP bldg stairs Treatment Focus receiprocal steps less 1 UE use, stability Comments Last activity of tx: no UE contact rail ascend, light back of hand contact R HR descend receiprocal patterning . gait Device Used none Distance/Duration 104ft Treatment Focus LLE wt acceptance, equal stance time/fabien Comments working on sequence, cued posture w/gait, glut and core over LLE stance LE with awarness of equal fabien to normalize patterning. Neuro Re-Education Treatment Balance Activities SL Equipment blue kick ball at trampoline Comments 1. roll of ball under foot 2. SLS trials: ball under foot : LLE stance leg 30 sec mod pressure on ball, RLE stance 30 sec light touch on ball. hurdles Details f/side stepping Surface firm Equipment at rail, light contact x2 for balance recovery, 6 hurdles Reps/Duration x3 sets direction each Comments fwd ( step to then step over step) and side over 6 hurdles reciprocally x2 sets each PT-OP-T Assessment and Plan Start: 06/12/21 14:07 Freq: Status: Active Protocol: Document 10/11/21 10:33 SP (Rec: 10/11/21 11:31 SP [id number]) Physical Therapy Assessment Goals 5 Short Term Goal (STG) Pt will be able to walk 1 mile w/o inc pain greater than 4/ 10 09/20/21: pt stated 40 min walk lately and also ramp w/ B HR on dock but might have over did, discomfort L adductor/hip flexor. 09/27/21: Yesterday at [employer] using SPC about 20 min then grocery store about 6/10 pain. 10/01-15-25 min walk 6/10 STG Duration 11/03/21 progressing. [facility] Goal (LTG) Pt will be able to walk on trails w/walking sticks as needed w/o inc pain more than 2/10. LTG Duration 12/03/21 4 Short Term Goal (STG) Pt will score at least 25/30 on FGA to show improved balance to dec fall risk 10/01- STG Duration 11/03/21 [facility] Goal (LTG) Pt will be able to go sailing on boat and go biking w/o concern for balance or have pain. LTG Duration 12/03/21 3 Short Term Goal (STG) Pt will be indep w/HEP fro strength, balance, gait and flexiblity. STG Duration achied progressing as able [facility] Goal (LTG) Pt will score at least 4+/5 BLE MMT to show improved strength to allow for improved functional ability and return to higher level activities. 10/01-improved LTG Duration 12/03/21 2 [facility] Goal (LTG) Pt will perform 10 reps sit to stand without UE support in 30 sec to demonstrate improved functional hip strength and balance. 10/01- w/UEs 6x LTG Duration 12/03/21 1 Impairment 15/80 Short Term Goal (STG) Pt will present with an improved LEFS score to at least 30/80 to show improved functional ability. 10-01-24, improved STG Duration 10/22/21 [facility] Goal (LTG) Pt will present with an improved LEFS score to at least 55/80 to show improved functional ability. LTG Duration 12/03/21 Assessment Summary Assessment Pt improved in balance this tx Max> Mod RLE pressure on ball during SLS, no contact francisco stepping. Able to ascend/ descend 28 MAP bldg stairs light contact back R hand descend. Encouraged to work on quality cues given gait without SPC at home. Pt able to increase 20 reps BLE shuttle recovery. Physical Therapy Plan Frequency and Duration Frequency of Treatment 2x/Week Duration of Treatment 3 months Plan of Care Start Date 09/03/21 Plan of Care End Date 12/03/21 Therapeutic Interventions Therapeutic Interventions Aquatic Therapy,Balance Training,Gait Training,Home Exercise Program,Joint Mobilizations,Manual Therapy, Neuromuscular Re-education, Patient/Caregiver Education, Self-Care/Home Management,Soft Tissue Mobilization,Taping, Therapeutic Activities, Therapeutic Exercises Modalities Cold Pack/Ice Massage,Electric Stimulation,Hot Packs Next Visit Focus/Plan Next Note Type Treatment Note Next Visit Plan Next tx: add SLR to HEP and assess scar mob. POC: manual for glutes & scar tissue,Continue francisco stepping for wt acceptanace and quad/ hip abd fac. cont to work on gait mechanics & hip stability on SL LLE.
--- NOTE | 2021-10-15 15:45 | PT.OTN ---
Current Diagnoses Unilateral primary osteoarthritis, left hip (10/15/21) Physical Therapy Treatment Note PT-OP-A Visit Information Start: 06/12/21 14:07 Freq: Status: Active Protocol: Document 10/15/21 14:57 SP (Rec: 10/15/21 16:03 SP [id number]) Out-Patient Physical Therapy Visit Information Visit Information Visit Type Treatment Note Visit Note 10/02 Visit Start Time 14:57 Visit Stop Time 15:45 Total Visit Minutes 48 Visit Number 14 Number of ADJUNCT PHYSICS INSTRUCTOR Visits 2 Evaluation Information Evaluation Date 06/19/21 Precautions Precautions L Posterior hip precuations PT-OP-B Current Condition Start: 06/12/21 14:07 Freq: Status: Active Protocol: Document 09/03/21 12:53 LR (Rec: 09/05/21 08:17 [facility] [id number]) Current Condition History of Current Condition Onset Date 08/28/21 Current Complaints L CHRISTOS History of Current Condition 09/03: Pt had L post approach CHRISTOS and is taking pain meds to manage pain. he does feel that his legs are more even in length after L CHRISTOS. He has been compliant w/exercises. He was concerned about swelling but does note he has been sitting in dependent position a lot. IE:Pt has a history of two back surgeries in 2 1/2 years. He had ongoing left hip pain after both surgeries and PT had suspected underlying hip pathology. He finally got an appointment with Dr. Barger in March of 2021. He has a left THR scheduled on 06/26/2021 . He will have an posterior approach per handout in folder but pt does not recall what kind he will have. PMH: right foot surgery, right TKR, three lumbar surgeries including two fusions and left foot neuropathy. Pt is getting a RW at [facility]. He has a walk-in shower. He does not have a seat. He has two small steps and a threshold to get in the house or a threshold. There is no railing. Treatment Goals Patient/Caregiver Goals be able to sail on boat, go for walks including trails, get back to biking (possibly getting electric), be able to exercise to lose wt PT-OP-C Subjective Start: 06/12/21 14:07 Freq: Status: Active Protocol: Document 10/15/21 14:57 SP (Rec: 10/15/21 16:03 SP [id number]) OP-PT Subjective Patient Comments Patient Comments Pt stated was able to go down to his boat, not low tide so incline/decline wasn't to bad . PT-OP-E Functional Tests Start: 10/01/21 09:39 Freq: Status: Active Protocol: Document 10/15/21 14:57 SP (Rec: 10/15/21 16:03 SP [id number]) Functional Tests Five Times Sit to Stand Test Score 6.5 reps Comments good form, slow pacing control PT-OP-G Mobility & Gait Start: 06/12/21 14:07 Freq: Status: Active Protocol: Document 09/03/21 12:53 LR (Rec: 09/05/21 08:14 [facility] [id number]) OP Mobility Evaluation Bed Mobility Supine to and from Sit indep Transfers Sit to Stand pt kicks LLE out in front to avoid 90 deg for sit<>stand OP Gait Assessment Comments Gait Comments Pt amb w/FWW with dec LLE stance time and push off. PT-OP-J Posture/Palpation/Skin Start: 06/12/21 14:07 Freq: Status: Active Protocol: Document 10/01/21 09:39 [facility] (Rec: 10/01/21 12:15 [facility] [id number]) Posture Evaluation Marcelle Postural Classification System Lumbar Protective Mechanism Left AP 1 Lumbar Protective Mechanism Right AP 1 Lumbar Protective Mechanism Left PA 1 Lumbar Protective Mechanism Right PA 1 PT-OP-K Range of Motion Start: 06/12/21 14:07 Freq: Status: Active Protocol: Document 06/19/21 10:30 MB (Rec: 06/19/21 12:22 MB [id number]) Hip Goniometric Range of Motion Hip ROM Limitations Comments Functional assessment only today d/t amount of training that needs to go into 45 minute eval and pre-op training: decreased left hip movement compared to the right with HS, gait, bed mobility and transfers and pt exhibits guarding behavior PT-OP-M Strength Start: 06/12/21 14:07 Freq: Status: Active Protocol: Document 10/01/21 09:39 [facility] (Rec: 10/01/21 12:15 [facility] [id number]) Hip Strength Hip Manual Muscle Testing Right Flexion (L2) 4 Good External Rotation 5 Normal Internal Rotation 5 Normal Left Flexion (L2) 4 Good Abduction 3 Fair External Rotation 3+ Fair+ Internal Rotation 4 Good Comments IR tested in neutral position and hip flex w/pt leaned back into hands to avoid pt going greater than 90 deg hip flex Knee Strength Knee Manual Muscle Testing Right Flexion (S2) 5 Normal Extension (L3) 5 Normal Left Flexion (S2) 4+ Good+ Extension (L3) 4+ Good+ Ankle/Foot Strength Ankle and Foot Manual Muscle Testing Left Dorsiflexion (L4) 4- Good- Plantarflexion (S1) 4+ Good+ Right Dorsiflexion (L4) 5 Normal Plantarflexion (S1) 5 Normal Comments seated PF testing B PT-OP-Q Treatments Start: 06/12/21 14:07 Freq: Status: Active Protocol: Document 10/15/21 14:57 SP (Rec: 10/15/21 16:03 SP [id number]) Cardio Equipment Bicycle (Upright) Duration (Minutes) 8 Resistance 15 Seat Position 11 Other 53 RPM, 2.49 miles Gym Equipment Shuttle Balance red clips Details progressive dec UE use Comments fWd & side: WBOS wt shifts, stationary w/ head turns CG- Min A Therapeutic Exercises Standing Exercises band walk Standing Exercise Name F/B/Side stepping- added to HEP Side bilateral Resistance TB #2 Equipment Used added toHEP Reps/Minutes 20 ft x2 laps each direction Comments cued tall posture, foot clear trail vs leading, knee flexion needed STS Equipment Used mesh chair Reps/Minutes 6.5 reps in 30 sec no UE support Comments good form. Gait Training Gait Activity stair mgt Description LLE wt acceptance Device Used R HR as needed ascend/descend Level of Assistance CGA Distance/Duration 28 MAP bldg stairs Treatment Focus receiprocal steps less 1 UE use, stability Comments Last activity of tx: 1 UE 5-10 # contact first 5 steps R HR then no UE ascending, 15# R hand contact then lessended to back of hand 5-10# descend receiprocal patterning. francisco Description LLE wt acceptance/ stability Device Used rail contact PRN Level of Assistance CGA, 2# leg wt Surface firm Distance/Duration x3 laps Treatment Focus posture and full wt shift Comments fwd step thru hurdles (6) x3 laps, light contact during LLE stance phase for RLE advancement. gait Description ER hallway x2 laps: fward/ bkward: head turns Device Used none Level of Assistance CGA Surface slight incline/ decline Distance/Duration 80 ft lengths Treatment Focus LLE wt acceptance, equal stance time/fabien Comments working on sequence, cued posture scap engagement w/gait , glut and core over LLE stance LE with awareness of equal fabien to normalize patterning. PT-OP-T Assessment and Plan Start: 06/12/21 14:07 Freq: Status: Active Protocol: Document 10/15/21 14:57 SP (Rec: 10/15/21 16:03 SP [id number]) Physical Therapy Assessment Goals 5 Short Term Goal (STG) Pt will be able to walk 1 mile w/o inc pain greater than 4/ 10 09/20/21: pt stated 40 min walk lately and also ramp w/ B HR on dock but might have over did, discomfort L adductor/hip flexor. 09/27/21: Yesterday at [employer] using SPC about 20 min then grocery store about 6/10 pain. 10/01-15-25 min walk 6/10/15/21: progressing: [place] 25 min la 4-5/10 earlier in day, contact use SPC range extendor. STG Duration 11/03/21 progressing Assisted Goal (LTG) Pt will be able to walk on trails w/walking sticks as needed w/o inc pain more than 2/10. LTG Duration 12/03/21 4 Short Term Goal (STG) Pt will score at least 25/30 on FGA to show improved balance to dec fall risk 10/01- STG Duration 11/03/21 Certifier Goal (LTG) Pt will be able to go sailing on boat and go biking w/o concern for balance or have pain. LTG Duration 12/03/21 3 Short Term Goal (STG) Pt will be indep w/HEP fro strength, balance, gait and flexiblity. STG Duration achied progressing as able Assisted Goal (LTG) Pt will score at least 4+/5 BLE MMT to show improved strength to allow for improved functional ability and return to higher level activities. 10/01-improved LTG Duration 12/03/21 2 Assisted Goal (LTG) Pt will perform 10 reps sit to stand without UE support in 30 sec to demonstrate improved functional hip strength and balance. 10/01- w/UEs 6x 10/15/21: 6.5 reps without UE support from mesh chair. LTG Duration 12/03/21 Progressing 10/15/21 1 Impairment 15/80 Short Term Goal (STG) Pt will present with an improved LEFS score to at least 30/80 to show improved functional ability. 10-01-24, improved STG Duration 10/22/21 Certifier Goal (LTG) Pt will present with an improved LEFS score to at least 55/80 to show improved functional ability. LTG Duration 12/03/21 Assessment Summary Assessment Pt improved short distances normal patterning gait phases LLE wt acceptance end tx post hurdles, shuttle balance and increase LLE WB slower descend control with light bareback rider at rail. Physical Therapy Plan Frequency and Duration Frequency of Treatment 2x/Week Duration of Treatment 3 months Plan of Care Start Date 09/03/21 Plan of Care End Date 12/03/21 Therapeutic Interventions Therapeutic Interventions Aquatic Therapy,Balance Training,Gait Training,Home Exercise Program,Joint Mobilizations,Manual Therapy, Neuromuscular Re-education, Patient/Caregiver Education, Self-Care/Home Management,Soft Tissue Mobilization,Taping, Therapeutic Activities, Therapeutic Exercises Modalities Cold Pack/Ice Massage,Electric Stimulation,Hot Packs Next Visit Focus/Plan Next Note Type Treatment Note Next Visit Plan Next tx: check band walk, and SLS w/ opp LE on small ball, add SLR to HEP and assess scar mob. POC: manual for glutes & scar tissue,Continue francisco stepping for wt acceptanace and quad/ hip abd fac. cont to work on gait mechanics & hip stability on SL LLE.
--- NOTE | 2021-10-18 12:13 | PT.OTN ---
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 he does feel that his legs are more even in length after L CHRISTOS. He has been compliant w/exercises. He was concerned about swelling but does note he has been sitting in dependent position a lot. IE:Pt has a history of two back surgeries in 2 1/2 years. He had ongoing left hip pain after both surgeries and PT had suspected underlying hip pathology. He finally got an appointment with Dr. Barger in March of 2021. He has a left THR scheduled on 06/26/2021 . He will have an posterior approach per handout in folder but pt does not recall what kind he will have. PMH: right foot surgery, right TKR, three lumbar surgeries including two fusions and left foot neuropathy. Pt is getting a RW at [facility]. He has a walk-in shower. He does not have a seat. He has two small steps and a threshold to get in the house or a threshold. There is no railing. Treatment Goals Patient/Caregiver Goals be able to sail on boat, go for walks including trails, get back to biking (possibly getting electric), be able to exercise to lose wt PT-OP-C Subjective Start: 06/12/21 14:07 Freq: Status: Active Protocol: Document 10/18/21 11:20 [facility] (Rec: 10/18/21 12:13 [facility] [id number]) OP-PT Subjective Patient Comments Patient Comments Pt reports he was itching and scratched an area at the end of his scar whwere he found a stitch and has it covered now. He feels like he overachieved yesterday going to [employer] and was doing a lot of of walking around. Pt sore in lat hip from doing too much. His knees have been bothering him more. PT-OP-E Functional Tests Start: 10/01/21 09:39 Freq: Status: Active Protocol: Document 10/15/21 14:57 [facility] (Rec: 10/15/21 16:03 [facility] [id number]) Functional Tests Five Times Sit to Stand Test Score 6.5 reps Comments good form, slow pacing control PT-OP-G Mobility & Gait Start: 06/12/21 14:07 Freq: Status: Active Protocol: Document 09/03/21 12:53 [facility] (Rec: 09/05/21 08:14 [facility] [id number]) OP Mobility Evaluation Bed Mobility Supine to and from Sit indep Transfers Sit to Stand pt kicks LLE out in front to avoid 90 deg for sit<>stand OP Gait Assessment Comments Gait Comments Pt amb w/FWW with dec LLE stance time and push off. PT-OP-J Posture/Palpation/Skin Start: 06/12/21 14:07 Freq: Status: Active Protocol: Document 10/01/21 09:39 [facility] (Rec: 10/01/21 12:15 [facility] [id number]) Posture Evaluation [facility] Postural Classification System Lumbar Protective Mechanism Left AP 1 Lumbar Protective Mechanism Right AP 1 Lumbar Protective Mechanism Left PA 1 Lumbar Protective Mechanism Right PA 1 PT-OP-K Range of Motion Start: 06/12/21 14:07 Freq: Status: Active Protocol: Document 06/19/21 10:30 [facility] (Rec: 06/19/21 12:22 [facility] [id number]) Hip Goniometric Range of Motion Hip ROM Limitations Comments Functional assessment only today d/t amount of training that needs to go into 45 minute eval and pre-op training: decreased left hip movement compared to the right with HS, gait, bed mobility and transfers and pt exhibits guarding behavior PT-OP-M Strength Start: 06/12/21 14:07 Freq: Status: Active Protocol: Document 10/01/21 09:39 [facility] (Rec: 10/01/21 12:15 [facility] [id number]) Hip Strength Hip Manual Muscle Testing Right Flexion (L2) 4 Good External Rotation 5 Normal Internal Rotation 5 Normal Left Flexion (L2) 4 Good Abduction 3 Fair External Rotation 3+ Fair+ Internal Rotation 4 Good Comments IR tested in neutral position and hip flex w/pt leaned back into hands to avoid pt going greater than 90 deg hip flex Knee Strength Knee Manual Muscle Testing Right Flexion (S2) 5 Normal Extension (L3) 5 Normal Left Flexion (S2) 4+ Good+ Extension (L3) 4+ Good+ Ankle/Foot Strength Ankle and Foot Manual Muscle Testing Left Dorsiflexion (L4) 4- Good- Plantarflexion (S1) 4+ Good+ Right Dorsiflexion (L4) 5 Normal Plantarflexion (S1) 5 Normal Comments seated PF testing B PT-OP-Q Treatments Start: 06/12/21 14:07 Freq: Status: Active Protocol: Document 10/18/21 11:20 [facility] (Rec: 10/18/21 12:13 [facility] [id number]) Cardio Equipment Bicycle (Upright) Duration (Minutes) 6 Resistance 15 Seat Position 11 Gym Equipment Sport Cord step up Exercise Details 5 in step Cord/Resistance green Reps/Duration 10 B Comments mid range fwd walk Cord/Resistance red Reps/Duration 12 Comments focus on push off Therapeutic Exercises Standing Exercises band walk Standing Exercise Name F/B/Side stepping-review HEP Side bilateral Resistance TB #2 Equipment Used added toHEP Reps/Minutes 20 ft each direction Comments cued tall posture, foot clear trail vs leading, knee flexion needed Gait Training Gait Activity gait at wall Comments in plank to alt hip flex & DF w/opp knee ext to PF x3 ea gait Comments 1. w/o AD cues for inc push off and posture x200ft 2. resisted gait w/dowel CGA x50ft PT-OP-T Assessment and Plan Start: 06/12/21 14:07 Freq: Status: Active Protocol: Document 10/18/21 11:20 [facility] (Rec: 10/18/21 12:13 [facility] [id number]) Physical Therapy Assessment Goals 5 Short Term Goal (STG) Pt will be able to walk 1 mile w/o inc pain greater than 4/ 10 09/20/21: pt stated 40 min walk lately and also ramp w/ B HR on dock but might have over did, discomfort L adductor/hip flexor. 09/27/21: Yesterday at [facility] using SPC about 20 min then grocery store about 6/10 pain. 10/01-15-25 min walk 6/10/15/21: progressing: [place] 25 min la 4-5/10 earlier in day, contact use SPC range extendor. STG Duration 11/03/21 progressing Stitcher Operator Goal (LTG) Pt will be able to walk on trails w/walking sticks as needed w/o inc pain more than 2/10. LTG Duration 12/03/21 4 Short Term Goal (STG) Pt will score at least 25/30 on FGA to show improved balance to dec fall risk 10/01- STG Duration 11/03/21 Shelter Goal (LTG) Pt will be able to go sailing on boat and go biking w/o concern for balance or have pain. LTG Duration 12/03/21 3 Short Term Goal (STG) Pt will be indep w/HEP fro strength, balance, gait and flexiblity. STG Duration achied progressing as able Stitcher Operator Goal (LTG) Pt will score at least 4+/5 BLE MMT to show improved strength to allow for improved functional ability and return to higher level activities. 10/01-improved LTG Duration 12/03/21 2 Shelter Goal (LTG) Pt will perform 10 reps sit to stand without UE support in 30 sec to demonstrate improved functional hip strength and balance. 10/01- w/UEs 6x 10/15/21: 6.5 reps without UE support from mesh chair. LTG Duration 12/03/21 Progressing 10/15/21 1 Impairment 15/80 Short Term Goal (STG) Pt will present with an improved LEFS score to at least 30/80 to show improved functional ability. 10-01-, improved STG Duration 10/22/21 Shelter Goal (LTG) Pt will present with an improved LEFS score to at least 55/80 to show improved functional ability. LTG Duration 12/03/21 Assessment Summary Assessment Pt did well with gait today and improved push off and is improving with LLE wt acceptance. He cont to show improved strength and stabiltiy. Physical Therapy Plan Frequency and Duration Frequency of Treatment 2x/Week Duration of Treatment 3 months Plan of Care Start Date 09/03/21 Plan of Care End Date 12/03/21 Next Visit Focus/Plan Next Note Type Treatment Note Next Visit Plan cont to work on gait and push off and SLS, STM to scar
--- NOTE | 2021-10-23 12:11 | PT.OTN ---
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 he does feel that his legs are more even in length after L CHRISTOS. He has been compliant w/exercises. He was concerned about swelling but does note he has been sitting in dependent position a lot. IE:Pt has a history of two back surgeries in 2 1/2 years. He had ongoing left hip pain after both surgeries and PT had suspected underlying hip pathology. He finally got an appointment with Dr. Barger in March of 2021. He has a left THR scheduled on 06/26/2021 . He will have an posterior approach per handout in folder but pt does not recall what kind he will have. PMH: right foot surgery, right TKR, three lumbar surgeries including two fusions and left foot neuropathy. Pt is getting a RW at [facility]. He has a walk-in shower. He does not have a seat. He has two small steps and a threshold to get in the house or a threshold. There is no railing. Treatment Goals Patient/Caregiver Goals be able to sail on boat, go for walks including trails, get back to biking (possibly getting electric), be able to exercise to lose wt PT-OP-C Subjective Start: 06/12/21 14:07 Freq: Status: Active Protocol: Document 10/23/21 11:20 [facility] (Rec: 10/23/21 12:10 [facility] [id number]) OP-PT Subjective Patient Comments Patient Comments Pt reports MD said to just avoid pulling on the stitch that is coming out and edu to pt that if becomes infected to come in prior to November 07 appt . Pt reports he is sore from pressure washing this weekend. PT-OP-E Functional Tests Start: 10/01/21 09:39 Freq: Status: Active Protocol: Document 10/15/21 14:57 [facility] (Rec: 10/15/21 16:03 [facility] [id number]) Functional Tests Five Times Sit to Stand Test Score 6.5 reps Comments good form, slow pacing control PT-OP-G Mobility & Gait Start: 06/12/21 14:07 Freq: Status: Active Protocol: Document 09/03/21 12:53 [facility] (Rec: 09/05/21 08:14 [facility] [id number]) OP Mobility Evaluation Bed Mobility Supine to and from Sit indep Transfers Sit to Stand pt kicks LLE out in front to avoid 90 deg for sit<>stand OP Gait Assessment Comments Gait Comments Pt amb w/FWW with dec LLE stance time and push off. PT-OP-J Posture/Palpation/Skin Start: 06/12/21 14:07 Freq: Status: Active Protocol: Document 10/01/21 09:39 [facility] (Rec: 10/01/21 12:15 [facility] [id number]) Posture Evaluation [facility] Postural Classification System Lumbar Protective Mechanism Left AP 1 Lumbar Protective Mechanism Right AP 1 Lumbar Protective Mechanism Left PA 1 Lumbar Protective Mechanism Right PA 1 PT-OP-K Range of Motion Start: 06/12/21 14:07 Freq: Status: Active Protocol: Document 06/19/21 10:30 [facility] (Rec: 06/19/21 12:22 [facility] [id number]) Hip Goniometric Range of Motion Hip ROM Limitations Comments Functional assessment only today d/t amount of training that needs to go into 45 minute eval and pre-op training: decreased left hip movement compared to the right with HS, gait, bed mobility and transfers and pt exhibits guarding behavior PT-OP-M Strength Start: 06/12/21 14:07 Freq: Status: Active Protocol: Document 10/01/21 09:39 [facility] (Rec: 10/01/21 12:15 [facility] [id number]) Hip Strength Hip Manual Muscle Testing Right Flexion (L2) 4 Good External Rotation 5 Normal Internal Rotation 5 Normal Left Flexion (L2) 4 Good Abduction 3 Fair External Rotation 3+ Fair+ Internal Rotation 4 Good Comments IR tested in neutral position and hip flex w/pt leaned back into hands to avoid pt going greater than 90 deg hip flex Knee Strength Knee Manual Muscle Testing Right Flexion (S2) 5 Normal Extension (L3) 5 Normal Left Flexion (S2) 4+ Good+ Extension (L3) 4+ Good+ Ankle/Foot Strength Ankle and Foot Manual Muscle Testing Left Dorsiflexion (L4) 4- Good- Plantarflexion (S1) 4+ Good+ Right Dorsiflexion (L4) 5 Normal Plantarflexion (S1) 5 Normal Comments seated PF testing B PT-OP-Q Treatments Start: 06/12/21 14:07 Freq: Status: Active Protocol: Document 10/23/21 11:20 [facility] (Rec: 10/23/21 12:10 [facility] [id number]) Therapeutic Exercises Standing Exercises squat Standing Exercise Name w/hands on rail and chair behind Side bilateral Reps/Minutes 15 Comments cues fo rknees not going past toes step ups Standing Exercise Name lat Side bilateral Equipment Used 4 in Reps/Minutes 10 ea heel raises Standing Exercise Name did DL on ground and on stair and SL on ground Reps/Minutes 3 min Gait Training Gait Activity gait at wall Comments in plank to alt hip flex & DF w/opp knee ext to PF 5 sec x2 [place] Comments 1. tap over/back for focus on wt acceptance x12 B 2. fwd over 6 recip x8 w/rail as little as possible 3. side step over 6 step to x1 B Manual Therapy Treatment Soft Tissue Mobilization ITB Body Location L TFL & ITB Mobilization Type Rolling,Strumming Intensity/Depth Moderate Body Position Sidelying scar Body Location L Mobilization Type Myofascial Release,Rolling, Strumming Intensity/Depth Moderate Body Position Sidelying Self-Care/Home Management Treatment Education Other Education verbal review of exercises and pulled some exercises from his list and added new ones. PT-OP-T Assessment and Plan Start: 06/12/21 14:07 Freq: Status: Active Protocol: Document 10/23/21 11:20 [facility] (Rec: 10/23/21 12:10 [facility] [id number]) Physical Therapy Assessment Goals 5 Short Term Goal (STG) Pt will be able to walk 1 mile w/o inc pain greater than 4/ 10 09/20/21: pt stated 40 min walk lately and also ramp w/ B HR on dock but might have over did, discomfort L adductor/hip flexor. 09/27/21: Yesterday at [facility] using SPC about 20 min then grocery store about 6/10 pain. 10/01-15-25 min walk 6/10 10/15/21: progressing: [facility] 25 min la 4-5/10 earlier in day, contact use SPC range extendor. STG Duration 11/03/21 progressing Nursing Home Goal (LTG) Pt will be able to walk on trails w/walking sticks as needed w/o inc pain more than 2/10. LTG Duration 12/03/21 4 Short Term Goal (STG) Pt will score at least 25/30 on FGA to show improved balance to dec fall risk 10/01- STG Duration 11/03/21 Nursing Home Goal (LTG) Pt will be able to go sailing on boat and go biking w/o concern for balance or have pain. LTG Duration 12/03/21 3 Short Term Goal (STG) Pt will be indep w/HEP fro strength, balance, gait and flexiblity. STG Duration achied progressing as able Nursing Home Goal (LTG) Pt will score at least 4+/5 BLE MMT to show improved strength to allow for improved functional ability and return to higher level activities. 10/01-improved LTG Duration 12/03/21 2 Nursing Home Goal (LTG) Pt will perform 10 reps sit to stand without UE support in 30 sec to demonstrate improved functional hip strength and balance. 10/01- w/UEs 6x 10/15/21: 6.5 reps without UE support from mesh chair. LTG Duration 12/03/21 Progressing 10/15/21 1 Impairment 15/80 Short Term Goal (STG) Pt will present with an improved LEFS score to at least 30/80 to show improved functional ability. 10-01-, improved STG Duration 10/22/21 Nursing Home Goal (LTG) Pt will present with an improved LEFS score to at least 55/80 to show improved functional ability. LTG Duration 12/03/21 Assessment Summary Assessment Pt cont to improve w/gait w/o AD and is able to walk more smoothly and balance more but does struggle still on L. HEP was updated. Physical Therapy Plan Frequency and Duration Frequency of Treatment 2x/Week Duration of Treatment 3 months Plan of Care Start Date 09/03/21 Plan of Care End Date 12/03/21 Next Visit Focus/Plan Next Note Type Treatment Note Next Visit Plan cont to work on gait and push off and SLS, STM to scar
--- NOTE | 2021-10-25 12:15 | PT.OTN ---
Current Diagnoses Unilateral primary osteoarthritis, left hip (10/25/21) Physical Therapy Treatment Note PT-OP-A Visit Information Start: 06/12/21 14:07 Freq: Status: Active Protocol: Document 10/25/21 11:32 [facility] (Rec: 10/25/21 12:15 [facility] [id number]) Out-Patient Physical Therapy Visit Information Visit Information Visit Type Treatment Note Visit Note 01/02 Visit Start Time 11:15 Visit Stop Time 12:00 Total Visit Minutes 45 Visit Number 17 Number of CALL WORKER PERSON Visits 0 PT-OP-B Current Condition Start: 06/12/21 14:07 Freq: Status: Active Protocol: Document 09/03/21 12:53 [facility] (Rec: 09/05/21 08:17 [facility] [id number]) Current Condition History of Current Condition Onset Date 08/28/21 Current Complaints L CHRISTOS History of Current Condition 09/03: Pt had L post approach CHRISTOS and is taking pain meds to manage pain. he does feel that his legs are more even in length after L CHRISTOS. He has been compliant w/exercises. He was concerned about swelling but does note he has been sitting in dependent position a lot. IE:Pt has a history of two back surgeries in 2 1/2 years. He had ongoing left hip pain after both surgeries and PT had suspected underlying hip pathology. He finally got an appointment with Dr. Barger in March of 2021. He has a left THR scheduled on 06/26/2021 . He will have an posterior approach per handout in folder but pt does not recall what kind he will have. PMH: right foot surgery, right TKR, three lumbar surgeries including two fusions and left foot neuropathy. Pt is getting a RW at [facility]. He has a walk-in shower. He does not have a seat. He has two small steps and a threshold to get in the house or a threshold. There is no railing. Treatment Goals Patient/Caregiver Goals be able to sail on boat, go for walks including trails, get back to biking (possibly getting electric), be able to exercise to lose wt PT-OP-C Subjective Start: 06/12/21 14:07 Freq: Status: Active Protocol: Document 10/25/21 11:32 [facility] (Rec: 10/25/21 12:15 [facility] [id number]) OP-PT Subjective Patient Comments Patient Comments pt reports not as sore as he thought even though he pressure washed the rest of the deck yesterday. PT-OP-E Functional Tests Start: 10/01/21 09:39 Freq: Status: Active Protocol: Document 10/15/21 14:57 [facility] (Rec: 10/15/21 16:03 SP [id number]) Functional Tests Five Times Sit to Stand Test Score 6.5 reps Comments good form, slow pacing control PT-OP-G Mobility & Gait Start: 06/12/21 14:07 Freq: Status: Active Protocol: Document 09/03/21 12:53 [facility] (Rec: 09/05/21 08:14 [facility] [id number]) OP Mobility Evaluation Bed Mobility Supine to and from Sit indep Transfers Sit to Stand pt kicks LLE out in front to avoid 90 deg for sit<>stand OP Gait Assessment Comments Gait Comments Pt amb w/FWW with dec LLE stance time and push off. PT-OP-J Posture/Palpation/Skin Start: 06/12/21 14:07 Freq: Status: Active Protocol: Document 10/01/21 09:39 [facility] (Rec: 10/01/21 12:15 [facility] [id number]) Posture Evaluation Marcelle Postural Classification System Lumbar Protective Mechanism Left AP 1 Lumbar Protective Mechanism Right AP 1 Lumbar Protective Mechanism Left PA 1 Lumbar Protective Mechanism Right PA 1 PT-OP-K Range of Motion Start: 06/12/21 14:07 Freq: Status: Active Protocol: Document 06/19/21 10:30 MB (Rec: 06/19/21 12:22 [facility] [id number]) Hip Goniometric Range of Motion Hip ROM Limitations Comments Functional assessment only today d/t amount of training that needs to go into 45 minute eval and pre-op training: decreased left hip movement compared to the right with HS, gait, bed mobility and transfers and pt exhibits guarding behavior PT-OP-M Strength Start: 06/12/21 14:07 Freq: Status: Active Protocol: Document 10/01/21 09:39 [facility] (Rec: 10/01/21 12:15 [facility] [id number]) Hip Strength Hip Manual Muscle Testing Right Flexion (L2) 4 Good External Rotation 5 Normal Internal Rotation 5 Normal Left Flexion (L2) 4 Good Abduction 3 Fair External Rotation 3+ Fair+ Internal Rotation 4 Good Comments IR tested in neutral position and hip flex w/pt leaned back into hands to avoid pt going greater than 90 deg hip flex Knee Strength Knee Manual Muscle Testing Right Flexion (S2) 5 Normal Extension (L3) 5 Normal Left Flexion (S2) 4+ Good+ Extension (L3) 4+ Good+ Ankle/Foot Strength Ankle and Foot Manual Muscle Testing Left Dorsiflexion (L4) 4- Good- Plantarflexion (S1) 4+ Good+ Right Dorsiflexion (L4) 5 Normal Plantarflexion (S1) 5 Normal Comments seated PF testing B PT-OP-Q Treatments Start: 06/12/21 14:07 Freq: Status: Active Protocol: Document 10/25/21 11:32 [facility] (Rec: 10/25/21 12:15 [facility] [id number]) Cardio Equipment Bicycle (Upright) Duration (Minutes) 8 Resistance 15 Seat Position 11 Therapeutic Exercises Standing Exercises step ups Side left Equipment Used 8 in Reps/Minutes 10 sidestep Side bilateral Equipment Used 4 in step Reps/Minutes 10 Gait Training Gait Activity gait at wall Comments in plank to alt hip flex & DF w/opp knee ext to PF 5 sec x2 francisco Comments 1. fwd over 6 recip x8 w/o rail gait Comments 1. w/o AD cues for inc push off and posture x200ft indoors 2. outdoor uneven terrain x3 min Manual Therapy Treatment Soft Tissue Mobilization thigh Body Location circumfential FM w/active HS stretch Mobilization Type Myofascial Release ITB Body Location L TFL & ITB Mobilization Type Rolling,Strumming Intensity/Depth Moderate Body Position Sidelying Comments w/plunger & clam & knee ext Neuro Re-Education Treatment Balance Activities bosu Details standing balance SL Details balloon toss w/aide Comments w/RLE on dynadisc then on ball PT-OP-T Assessment and Plan Start: 06/12/21 14:07 Freq: Status: Active Protocol: Document 10/25/21 11:32 [facility] (Rec: 10/25/21 12:15 [facility] [id number]) Physical Therapy Assessment Goals 5 Short Term Goal (STG) Pt will be able to walk 1 mile w/o inc pain greater than 4/ 10 09/20/21: pt stated 40 min walk lately and also ramp w/ B HR on dock but might have over did, discomfort L adductor/hip flexor. 09/27/21: Yesterday at [place] using SPC about 20 min then grocery store about 6/10 pain. 10/01-15-25 min walk 610/15/21: progressing: [place] 25 min la 4-5/10 earlier in day, contact use SPC range extendor. STG Duration 11/03/21 progressing [facility] Goal (LTG) Pt will be able to walk on trails w/walking sticks as needed w/o inc pain more than 2/10. LTG Duration 12/03/21 4 Short Term Goal (STG) Pt will score at least 25/30 on FGA to show improved balance to dec fall risk 10/01- STG Duration 11/03/21 [facility] Goal (LTG) Pt will be able to go sailing on boat and go biking w/o concern for balance or have pain. LTG Duration 12/03/21 3 Short Term Goal (STG) Pt will be indep w/HEP fro strength, balance, gait and flexiblity. STG Duration achied progressing as able [facility] Goal (LTG) Pt will score at least 4+/5 BLE MMT to show improved strength to allow for improved functional ability and return to higher level activities. 10/01-improved LTG Duration 12/03/21 2 [facility] Goal (LTG) Pt will perform 10 reps sit to stand without UE support in 30 sec to demonstrate improved functional hip strength and balance. 10/01- w/UEs 6x 10/15/21: 6.5 reps without UE support from mesh chair. LTG Duration 12/03/21 Progressing 10/15/21 1 Impairment 15/80 Short Term Goal (STG) Pt will present with an improved LEFS score to at least 30/80 to show improved functional ability. 10-01-, improved STG Duration 10/22/21 [facility] Goal (LTG) Pt will present with an improved LEFS score to at least 55/80 to show improved functional ability. LTG Duration 12/03/21 Assessment Summary Assessment pt doing better w/gait w/o AD but does still requier cues for upright posture especially when WB on LLE. Improving wt acceptance w/step. Physical Therapy Plan Frequency and Duration Frequency of Treatment 2x/Week Duration of Treatment 3 months Plan of Care Start Date 09/03/21 Plan of Care End Date 12/03/21 Next Visit Focus/Plan Next Note Type Progress Note Next Visit Plan cont to work on gait and push off and SLS, STM to scar & thigh
--- NOTE | 2021-10-31 14:26 | PT.OTN ---
Current Diagnoses Unilateral primary osteoarthritis, left hip (10/31/21) Physical Therapy Treatment Note PT-OP-A Visit Information Start: 06/12/21 14:07 Freq: Status: Active Protocol: Document 10/31/21 13:05 [facility] (Rec: 10/31/21 14:26 [facility] [id number]) Out-Patient Physical Therapy Visit Information Visit Information Visit Type Progress Note Visit Note 06/04 Visit Start Time 13:01 Visit Stop Time 13:44 Total Visit Minutes 43 Visit Number 18 Number of EXTERIOR DESIGNER Visits 0 PT-OP-B Current Condition Start: 06/12/21 14:07 Freq: Status: Active Protocol: Document 09/03/21 12:53 [facility] (Rec: 09/05/21 08:17 [facility] [id number]) Current Condition History of Current Condition Onset Date 08/28/21 Current Complaints L CHRISTOS History of Current Condition 09/03: Pt had L post approach CHRISTOS and is taking pain meds to manage pain. he does feel that his legs are more even in length after L CHRISTOS. He has been compliant w/exercises. He was concerned about swelling but does note he has been sitting in dependent position a lot. IE:Pt has a history of two back surgeries in 2 1/2 years. He had ongoing left hip pain after both surgeries and PT had suspected underlying hip pathology. He finally got an appointment with Dr. Barger in March of 2021. He has a left THR scheduled on 06/26/2021 . He will have an posterior approach per handout in folder but pt does not recall what kind he will have. PMH: right foot surgery, right TKR, three lumbar surgeries including two fusions and left foot neuropathy. Pt is getting a RW at [facility]. He has a walk-in shower. He does not have a seat. He has two small steps and a threshold to get in the house or a threshold. There is no railing. Treatment Goals Patient/Caregiver Goals be able to sail on boat, go for walks including trails, get back to biking (possibly getting electric), be able to exercise to lose wt PT-OP-C Subjective Start: 06/12/21 14:07 Freq: Status: Active Protocol: Document 10/31/21 13:05 [facility] (Rec: 10/31/21 14:26 [facility] [id number]) OP-PT Subjective Patient Comments Patient Comments Pt reports he feels like he is improving and pain is better. Patient Reported Progress Improving PT-OP-E Functional Tests Start: 10/01/21 09:39 Freq: Status: Active Protocol: Document 10/31/21 13:05 [facility] (Rec: 10/31/21 14:26 [facility] [id number]) Functional Tests 30 Second Sit to Stand Test Score 8.5 Comments no hands Five Times Sit to Stand Test Score 17 sec Comments no hands PT-OP-G Mobility & Gait Start: 06/12/21 14:07 Freq: Status: Active Protocol: Document 09/03/21 12:53 [facility] (Rec: 09/05/21 08:14 [facility] [id number]) OP Mobility Evaluation Bed Mobility Supine to and from Sit indep Transfers Sit to Stand pt kicks LLE out in front to avoid 90 deg for sit<>stand OP Gait Assessment Comments Gait Comments Pt amb w/FWW with dec LLE stance time and push off. PT-OP-J Posture/Palpation/Skin Start: 06/12/21 14:07 Freq: Status: Active Protocol: Document 10/01/21 09:39 [facility] (Rec: 10/01/21 12:15 [facility] [id number]) Posture Evaluation Marcelle Postural Classification System Lumbar Protective Mechanism Left AP 1 Lumbar Protective Mechanism Right AP 1 Lumbar Protective Mechanism Left PA 1 Lumbar Protective Mechanism Right PA 1 PT-OP-K Range of Motion Start: 06/12/21 14:07 Freq: Status: Active Protocol: Document 06/19/21 10:30 [facility] (Rec: 06/19/21 12:22 [facility] [id number]) Hip Goniometric Range of Motion Hip ROM Limitations Comments Functional assessment only today d/t amount of training that needs to go into 45 minute eval and pre-op training: decreased left hip movement compared to the right with HS, gait, bed mobility and transfers and pt exhibits guarding behavior PT-OP-M Strength Start: 06/12/21 14:07 Freq: Status: Active Protocol: Document 10/31/21 13:05 [facility] (Rec: 10/31/21 14:26 [facility] [id number]) Hip Strength Hip Manual Muscle Testing Right Flexion (L2) 4 Good Extension (S1) 3+ Fair+ External Rotation 5 Normal Internal Rotation 5 Normal Left Flexion (L2) 4 Good Extension (S1) 3+ Fair+ Abduction 4- Good- External Rotation 3+ Fair+ Internal Rotation 5 Normal Comments IR tested in neutral position and hip flex w/pt leaned back into hands to avoid pt going greater than 90 deg hip flex; some pain in ant hip w. ext Knee Strength Knee Manual Muscle Testing Right Flexion (S2) 5 Normal Extension (L3) 5 Normal Left Flexion (S2) 5 Normal Extension (L3) 5 Normal Ankle/Foot Strength Ankle and Foot Manual Muscle Testing Left Dorsiflexion (L4) 4 Good Plantarflexion (S1) 4+ Good+ Right Dorsiflexion (L4) 5 Normal Plantarflexion (S1) 5 Normal Comments seated PF testing B PT-OP-Q Treatments Start: 06/12/21 14:07 Freq: Status: Active Protocol: Document 10/31/21 13:05 [facility] (Rec: 10/31/21 14:26 [facility] [id number]) Cardio Equipment Bicycle (Upright) Duration (Minutes) 5 Resistance 15 Seat Position 10 Gym Equipment Sport Cord resist walk Exercise Details backwards, sidesteps B Cord/Resistance red Reps/Duration 8 ea fwd walk Cord/Resistance red Reps/Duration 12 Comments focus on push off Therapeutic Exercises Sidelying Exercises clamshell Side left Reps/Minutes 10 Gait Training Gait Activity gait Comments 1. outdoor uneven terrain x3 min Manual Therapy Treatment Soft Tissue Mobilization scar Body Location L Mobilization Type Myofascial Release,Rolling, Strumming Intensity/Depth Moderate Body Position Sidelying PT-OP-T Assessment and Plan Start: 06/12/21 14:07 Freq: Status: Active Protocol: Document 10/31/21 13:05 [facility] (Rec: 10/31/21 14:26 [facility] [id number]) Physical Therapy Assessment Goals 5 Short Term Goal (STG) Pt will be able to walk 1 mile w/o inc pain greater than / 10 09/20/21: pt stated 40 min walk lately and also ramp w/ B HR on dock but might have over did, discomfort L adductor/hip flexor. 09/27/21: Yesterday at [facility] using SPC about 20 min then grocery store about 6/10 pain. 10/01-15-25 min walk 6/10 10/15/21: progressing: [facility] 25 min la 4-10/02 earlier in day, contact use SPC range extendor. 10/31-after 20-25 min walks about 5/10 STG Duration 11/30/21 Travel Registered Nurse [facility] Goal (LTG) Pt will be able to walk on trails w/walking sticks as needed w/o inc pain more than 2/10. 10/31-has not tried trails LTG Duration 01/31/22 4 Short Term Goal (STG) Pt will score at least 25/30 on FGA to show improved balance to dec fall risk 10/01- 10/31- STG Duration 11/30 [facility] Goal (LTG) Pt will be able to go sailing on boat and go biking w/o concern for balance or have pain. LTG Duration 12/31/21 3 Short Term Goal (STG) Pt will be indep w/HEP fro strength, balance, gait and flexiblity. STG Duration achied progressing as able [facility] Goal (LTG) Pt will score at least 4+/5 BLE MMT to show improved strength to allow for improved functional ability and return to higher level activities. 10/01-improved 10/31-cont improvement LTG Duration 12/31 2 [facility] Goal (LTG) Pt will perform 10 reps sit to stand without UE support in 30 sec to demonstrate improved functional hip strength and balance. 10/01- w/UEs 6x 10/15/21: 6.5 reps without UE support from mesh chair. 10/31-8.5 LTG Duration 12/31 1 Impairment 15/80 Short Term Goal (STG) Pt will present with an improved LEFS score to at least 30/80 to show improved functional ability. 10-01-24, improved 10/31-n/t STG Duration 11/30 Travel Registered Nurse [facility] Goal (LTG) Pt will present with an improved LEFS score to at least 55/80 to show improved functional ability. LTG Duration 12/31 Assessment Summary Assessment Pt is improving with his gait mechanics, strength, balance and stability, but is still imited. D/t his deconditioning from issues w/back, knees and L hip over past years, he has significnatly dec activity tolerance and strength, which is improving well iw therapy . He would benefit from cont PT to work on these deficits and return him to his prior functional level. Pt was instructed to tell MD that the area the stitch is coming out is more red, has some clear/ white drainage and has inc amt of stitch out. Physical Therapy Plan Frequency and Duration Frequency of Treatment 1-2x/week Duration of Treatment 2 months Plan of Care Start Date 10/31/21 Plan of Care End Date 12/31/21 Therapeutic Interventions Therapeutic Interventions Aquatic Therapy,Balance Training,Gait Training,Home Exercise Program,Joint Mobilizations,Manual Therapy, Neuromuscular Re-education, Patient/Caregiver Education, Self-Care/Home Management,Soft Tissue Mobilization,Taping, Therapeutic Activities, Therapeutic Exercises Modalities Cold Pack/Ice Massage,Electric Stimulation,Hot Packs Next Visit Focus/Plan Next Note Type Progress Note Next Visit Plan cont to work on gait and push off and SLS, STM to scar & thigh
--- NOTE | 2021-10-31 14:27 | PT.OPPOC ---
Physical, Occupational & Speech Therapy At [facility] Current Diagnoses Unilateral primary osteoarthritis, left hip (10/31/21) Visit Care Team Role Provider Type Tano Sorenson MD Family Provider Non-Staff Primary Care Provider Specialty: Internal Medicine Address: [address] [place] [address], [id number] Email: Deanna Barger MD Attending Provider Physician Referring Provider Specialty: Orthopedics Orthopedic Surgery Address: [address] [place] [address], [phone] Email: [email or web address] Plan Of Care PT-OP-T Assessment and Plan Start: 06/12/21 14:07 Freq: Status: Active Protocol: Document 10/31/21 13:05 [facility] (Rec: 10/31/21 14:26 [facility] [id number]) Physical Therapy Assessment Goals 5 Short Term Goal (STG) Pt will be able to walk 1 mile w/o inc pain greater than 4/ 10 09/20/21: pt stated 40 min walk lately and also ramp w/ B HR on dock but might have over did, discomfort L adductor/hip flexor. 09/27/21: Yesterday at [facility] using SPC about 20 min then grocery store about 6/10 pain. 10/01-15-25 min walk 6/10 10/15/21: progressing: [facility] 25 min la 4-5/10 earlier in day, contact use SPC range extendor. 10/31-after 20-25 min walks about 5/10 STG Duration 11/30/21 [facility] Goal (LTG) Pt will be able to walk on trails w/walking sticks as needed w/o inc pain more than 2/10. 10/31-has not tried trails LTG Duration 01/31/22 4 Short Term Goal (STG) Pt will score at least 25/30 on FGA to show improved balance to dec fall risk 10/01-1610/31- STG Duration 11/30 [facility] Goal (LTG) Pt will be able to go sailing on boat and go biking w/o concern for balance or have pain. LTG Duration 12/31/21 3 Short Term Goal (STG) Pt will be indep w/HEP fro strength, balance, gait and flexiblity. STG Duration achied progressing as able [facility] Goal (LTG) Pt will score at least 4+/5 BLE MMT to show improved strength to allow for improved functional ability and return to higher level activities. 10/01-improved 10/31-cont improvement LTG Duration 12/31 2 [facility] Goal (LTG) Pt will perform 10 reps sit to stand without UE support in 30 sec to demonstrate improved functional hip strength and balance. 10/01- w/UEs 6x 10/15/21: 6.5 reps without UE support from mesh chair. 10/31-8.5 LTG Duration 12/31 1 Impairment 15/80 Short Term Goal (STG) Pt will present with an improved LEFS score to at least 30/80 to show improved functional ability. 10-02-23, improved 10/31-n/t STG Duration 11/30 [facility] Goal (LTG) Pt will present with an improved LEFS score to at least 55/80 to show improved functional ability. LTG Duration 12/31 Assessment Summary Assessment Pt is improving with his gait mechanics, strength, balance and stability, but is still imited. D/t his deconditioning from issues w/back, knees and L hip over past years, he has significnatly dec activity tolerance and strength, which is improving well iwth therapy . He would benefit from cont PT to work on these deficits and return him to his prior functional level. Pt was instructed to tell MD that the area the stitch is coming out is more red, has some clear/ white drainage and has inc amt of stitch out. Physical Therapy Plan Frequency and Duration Frequency of Treatment 1-2x/week Duration of Treatment 2 months Plan of Care Start Date 10/31/21 Plan of Care End Date 12/31/21 Therapeutic Interventions Therapeutic Interventions Aquatic Therapy,Balance Training,Gait Training,Home Exercise Program,Joint Mobilizations,Manual Therapy, Neuromuscular Re-education, Patient/Caregiver Education, Self-Care/Home Management,Soft Tissue Mobilization,Taping, Therapeutic Activities, Therapeutic Exercises Modalities Cold Pack/Ice Massage,Electric Stimulation,Hot Packs Next Visit Focus/Plan Next Note Type Progress Note Next Visit Plan cont to work on gait and push off and SLS, STM to scar & thigh Plan of Care Dates Plan of Care Start Date 10/31/21 Plan of Care End Date 12/31/21 Electronically Signed by: Cherelle Masters, PT 10/31/21 [id number] If you are in agreement with this Plan of Care, please return a signed and dated copy. I have reviewed this Plan of Care and certify that the skilled therapy services above are required to meet the patient?s needs. Physician Signature Date Printed Name and Credentials Clinical Instructor Signature Printed Name and Credentials
--- NOTE | 2021-11-02 11:20 | PT.OTN ---
Current Diagnoses Unilateral primary osteoarthritis, left hip (11/02/21) Physical Therapy Treatment Note PT-OP-A Visit Information Start: 06/12/21 14:07 Freq: Status: Active Protocol: Document 11/02/21 10:32 SP (Rec: 11/02/21 11:34 SP [id number]) Out-Patient Physical Therapy Visit Information Visit Information Visit Type Treatment Note Visit Start Time 10:32 Visit Stop Time 11:20 Total Visit Minutes 48 Visit Number 19 Number of PET WALKER Visits 1 Evaluation Information Evaluation Date 06/19/21 Precautions Precautions L Posterior hip precuations PT-OP-B Current Condition Start: 06/12/21 14:07 Freq: Status: Active Protocol: Document 09/03/21 12:53 LR (Rec: 09/05/21 08:17 [facility] [id number]) Current Condition History of Current Condition Onset Date 08/28/21 Current Complaints L CHRISTOS History of Current Condition 09/03: Pt had L post approach CHRISTOS and is taking pain meds to manage pain. he does feel that his legs are more even in length after L CHRISTOS. He has been compliant w/exercises. He was concerned about swelling but does note he has been sitting in dependent position a lot. IE:Pt has a history of two back surgeries in 2 1/2 years. He had ongoing left hip pain after both surgeries and PT had suspected underlying hip pathology. He finally got an appointment with Dr. Barger in March of 2021. He has a left THR scheduled on 06/26/2021 . He will have an posterior approach per handout in folder but pt does not recall what kind he will have. PMH: right foot surgery, right TKR, three lumbar surgeries including two fusions and left foot neuropathy. Pt is getting a RW at [facility]. He has a walk-in shower. He does not have a seat. He has two small steps and a threshold to get in the house or a threshold. There is no railing. Treatment Goals Patient/Caregiver Goals be able to sail on boat, go for walks including trails, get back to biking (possibly getting electric), be able to exercise to lose wt PT-OP-C Subjective Start: 06/12/21 14:07 Freq: Status: Active Protocol: Document 11/02/21 10:32 SP (Rec: 11/02/21 11:34 SP [id number]) OP-PT Subjective Patient Comments Patient Comments Pt reported little sore and tired after last tx. Has been walking around more, able last longer walking for ability to shop. He said called the Dr and was able toget the stitch sticking out clipped off, not irritated anymore. He states R shld little discomfort after reached quickly for balloon but also uncomfortable using tablet so wears his brace for support and heps. Patient Reported Progress Improving PT-OP-E Functional Tests Start: 10/01/21 09:39 Freq: Status: Active Protocol: Document 10/31/21 13:05 [facility] (Rec: 10/31/21 14:26 [facility] [id number]) Functional Tests 30 Second Sit to Stand Test Score 8.5 Comments no hands Five Times Sit to Stand Test Score 17 sec Comments no hands PT-OP-G Mobility & Gait Start: 06/12/21 14:07 Freq: Status: Active Protocol: Document 09/03/21 12:53 [facility] (Rec: 09/05/21 08:14 [facility] [id number]) OP Mobility Evaluation Bed Mobility Supine to and from Sit indep Transfers Sit to Stand pt kicks LLE out in front to avoid 90 deg for sit<>stand OP Gait Assessment Comments Gait Comments Pt amb w/FWW with dec LLE stance time and push off. PT-OP-J Posture/Palpation/Skin Start: 06/12/21 14:07 Freq: Status: Active Protocol: Document 10/01/21 09:39 [facility] (Rec: 10/01/21 12:15 [facility] [id number]) Posture Evaluation [facility] Postural Classification System Lumbar Protective Mechanism Left AP 1 Lumbar Protective Mechanism Right AP 1 Lumbar Protective Mechanism Left PA 1 Lumbar Protective Mechanism Right PA 1 PT-OP-K Range of Motion Start: 06/12/21 14:07 Freq: Status: Active Protocol: Document 06/19/21 10:30 MB (Rec: 06/19/21 12:22 MB [id number]) Hip Goniometric Range of Motion Hip ROM Limitations Comments Functional assessment only today d/t amount of training that needs to go into 45 minute eval and pre-op training: decreased left hip movement compared to the right with HS, gait, bed mobility and transfers and pt exhibits guarding behavior PT-OP-M Strength Start: 06/12/21 14:07 Freq: Status: Active Protocol: Document 10/31/21 13:05 [facility] (Rec: 10/31/21 14:26 [facility] [id number]) Hip Strength Hip Manual Muscle Testing Right Flexion (L2) 4 Good Extension (S1) 3+ Fair+ External Rotation 5 Normal Internal Rotation 5 Normal Left Flexion (L2) 4 Good Extension (S1) 3+ Fair+ Abduction 4- Good- External Rotation 3+ Fair+ Internal Rotation 5 Normal Comments IR tested in neutral position and hip flex w/pt leaned back into hands to avoid pt going greater than 90 deg hip flex; some pain in ant hip w. ext Knee Strength Knee Manual Muscle Testing Right Flexion (S2) 5 Normal Extension (L3) 5 Normal Left Flexion (S2) 5 Normal Extension (L3) 5 Normal Ankle/Foot Strength Ankle and Foot Manual Muscle Testing Left Dorsiflexion (L4) 4 Good Plantarflexion (S1) 4+ Good+ Right Dorsiflexion (L4) 5 Normal Plantarflexion (S1) 5 Normal Comments seated PF testing B PT-OP-Q Treatments Start: 06/12/21 14:07 Freq: Status: Active Protocol: Document 11/02/21 10:32 SP (Rec: 11/02/21 11:34 SP [id number]) Cardio Equipment Bicycle (Upright) Duration (Minutes) 8 Resistance 15 Seat Position 10 Other good effort tiring 51 RPMs Gym Equipment Sport Cord resist walk Exercise Details backwards, sidesteps B Cord/Resistance red Reps/Duration 8 ea Comments cued L hip abd/glut/calf fac, with upright alignment step up Exercise Details L fwd, L side step up- 4 in step Cord/Resistance red Reps/Duration x5 rep each direction Comments cued glut/ hip abd fac, not use momentum- good form 2 reps , tires quickly utilizing momentum. fwd walk Exercise Details LLE calf fac Cord/Resistance red Reps/Duration 12 Comments focus on push off with LLE for RLE advancement Therapeutic Exercises Supine Exercises huong stretch Supine Exercise Name review HEP, improved hip ext stretch Side left Reps/Minutes 60 w/ manual cross MFR Comments good stretch- L knee able decend inline with table Standing Exercises stretch Standing Exercise Name hip flexor lunge Side bilateral Equipment Used R LE on 2nd step, rails support Reps/Minutes 30 sec x4 Comments good form and stretch Gait Training Gait Activity gait Description grass f/b/side stepping; back MAP bldg pathway fwd/bwd, 7 step mgt Device Used 0 Level of Assistance CGA- close SBA Treatment Focus glut/ hip abd fac with balance recovery uneven terrain Comments 1. outdoor uneven terrain x8 min 2. 7 step mgt Manual Therapy Treatment Soft Tissue Mobilization thigh Body Location circumfential quad Mobilization Type Myofascial Release Comments good manual feedback, able increase flexibility with ROM huong stretch post ITB Body Location L TFL & ITB Mobilization Type Rolling,Strumming Intensity/Depth Moderate Body Position Sidelying Comments manual and instruction on self appication rolling pin and racquetball on wall which uses in sock at home. scar Body Location L Mobilization Type Myofascial Release,Rolling, Strumming Intensity/Depth Moderate Body Position Sidelying Manual Techniques STM rolling pin quads Comments discussed perform at home for self lengthening L ITB, quad and PT-OP-T Assessment and Plan Start: 06/12/21 14:07 Freq: Status: Active Protocol: Document 11/02/21 10:32 SP (Rec: 11/02/21 11:34 SP [id number]) Physical Therapy Assessment Goals 5 Short Term Goal (STG) Pt will be able to walk 1 mile w/o inc pain greater than 4/ 10 09/20/21: pt stated 40 min walk lately and also ramp w/ B HR on dock but might have over did, discomfort L adductor/hip flexor. 09/27/21: Yesterday at [facility] using SPC about 20 min then grocery store about 6/10 pain. 10/01-15-25 min walk 6/10 10/15/21: progressing: [facility] 25 min la 4-5/10 earlier in day, contact use SPC range extendor. 10/31-after 20-25 min walks about 5/10 STG Duration 11/30/21 Jail Goal (LTG) Pt will be able to walk on trails w/walking sticks as needed w/o inc pain more than 2/10. 10/31-has not tried trails LTG Duration 01/31/22 4 Short Term Goal (STG) Pt will score at least 25/30 on FGA to show improved balance to dec fall risk 10/01- 10/31- STG Duration 11/30 Jail Goal (LTG) Pt will be able to go sailing on boat and go biking w/o concern for balance or have pain. LTG Duration 12/31/21 3 Short Term Goal (STG) Pt will be indep w/HEP fro strength, balance, gait and flexiblity. STG Duration achied progressing as able Jail Goal (LTG) Pt will score at least 4+/5 BLE MMT to show improved strength to allow for improved functional ability and return to higher level activities. 10/01-improved 10/31-cont improvement LTG Duration 12/31 2 Mold Shop Supervisor Goal (LTG) Pt will perform 10 reps sit to stand without UE support in 30 sec to demonstrate improved functional hip strength and balance. 10/01- w/UEs 6x 10/15/21: 6.5 reps without UE support from mesh chair. 10/31-8.5 LTG Duration 12/31 1 Impairment 15/80 Short Term Goal (STG) Pt will present with an improved LEFS score to at least 30/80 to show improved functional ability. 10-01-, improved 10/31-n/t STG Duration 11/30 Jail Goal (LTG) Pt will present with an improved LEFS score to at least 55/80 to show improved functional ability. LTG Duration 12/31 Assessment Summary Assessment Pt improved L glut and hip abd fac emphasis on hip extension to allow even fabien toe off during gait. Improved end tx post manual and cues for allow increase RLe stride with L hip extension awareness. Improved L TFL and quad flexibility post manual. Physical Therapy Plan Frequency and Duration Frequency of Treatment 1-2x/week Duration of Treatment 2 months Plan of Care Start Date 10/31/21 Plan of Care End Date 12/31/21 Therapeutic Interventions Therapeutic Interventions Aquatic Therapy,Balance Training,Gait Training,Home Exercise Program,Joint Mobilizations,Manual Therapy, Neuromuscular Re-education, Patient/Caregiver Education, Self-Care/Home Management,Soft Tissue Mobilization,Taping, Therapeutic Activities, Therapeutic Exercises Modalities Cold Pack/Ice Massage,Electric Stimulation,Hot Packs Next Visit Focus/Plan Next Note Type Progress Note Next Visit Plan Continue: manual L quad, TFL, ITB and scar mobility. POC: cont to work on gait and push off and SLS.
--- NOTE | 2021-11-06 15:17 | PT.OTN ---
Current Diagnoses Unilateral primary osteoarthritis, left hip (11/06/21) Physical Therapy Treatment Note PT-OP-A Visit Information Start: 06/12/21 14:07 Freq: Status: Active Protocol: Document 11/06/21 14:35 SP (Rec: 11/06/21 15:37 SP [id number]) Out-Patient Physical Therapy Visit Information Visit Information Visit Type Treatment Note Visit Start Time 14:35 Visit Stop Time 15:17 Total Visit Minutes 42 Visit Number 20 Number of DRUG AND ALCOHOL COUNSELLOR Visits 2 Evaluation Information Evaluation Date 06/19/21 Precautions Precautions L Posterior hip precuations PT-OP-B Current Condition Start: 06/12/21 14:07 Freq: Status: Active Protocol: Document 09/03/21 12:53 LR (Rec: 09/05/21 08:17 [facility] [id number]) Current Condition History of Current Condition Onset Date 08/28/21 Current Complaints L CHRISTOS History of Current Condition 09/03: Pt had L post approach CHRISTOS and is taking pain meds to manage pain. he does feel that his legs are more even in length after L CHRISTOS. He has been compliant w/exercises. He was concerned about swelling but does note he has been sitting in dependent position a lot. IE:Pt has a history of two back surgeries in 2 1/2 years. He had ongoing left hip pain after both surgeries and PT had suspected underlying hip pathology. He finally got an appointment with Dr. Barger in March of 2021. He has a left THR scheduled on 06/26/2021 . He will have an posterior approach per handout in folder but pt does not recall what kind he will have. PMH: right foot surgery, right TKR, three lumbar surgeries including two fusions and left foot neuropathy. Pt is getting a RW at [facility]. He has a walk-in shower. He does not have a seat. He has two small steps and a threshold to get in the house or a threshold. There is no railing. Treatment Goals Patient/Caregiver Goals be able to sail on boat, go for walks including trails, get back to biking (possibly getting electric), be able to exercise to lose wt PT-OP-C Subjective Start: 06/12/21 14:07 Freq: Status: Active Protocol: Document 11/06/21 14:35 SP (Rec: 11/06/21 15:37 SP [id number]) OP-PT Subjective Patient Comments Patient Comments Pt antalgic gait, reported not having a good day, LBP more R and L anterior thigh. He reports sees ortho tomorrow. PT-OP-E Functional Tests Start: 10/01/21 09:39 Freq: Status: Active Protocol: Document 10/31/21 13:05 [facility] (Rec: 10/31/21 14:26 [facility] [id number]) Functional Tests 30 Second Sit to Stand Test Score 8.5 Comments no hands Five Times Sit to Stand Test Score 17 sec Comments no hands PT-OP-G Mobility & Gait Start: 06/12/21 14:07 Freq: Status: Active Protocol: Document 09/03/21 12:53 [facility] (Rec: 09/05/21 08:14 [facility] [id number]) OP Mobility Evaluation Bed Mobility Supine to and from Sit indep Transfers Sit to Stand pt kicks LLE out in front to avoid 90 deg for sit<>stand OP Gait Assessment Comments Gait Comments Pt amb w/FWW with dec LLE stance time and push off. PT-OP-J Posture/Palpation/Skin Start: 06/12/21 14:07 Freq: Status: Active Protocol: Document 10/01/21 09:39 [facility] (Rec: 10/01/21 12:15 [facility] [id number]) Posture Evaluation [facility] Postural Classification System Lumbar Protective Mechanism Left AP 1 Lumbar Protective Mechanism Right AP 1 Lumbar Protective Mechanism Left PA 1 Lumbar Protective Mechanism Right PA 1 PT-OP-K Range of Motion Start: 06/12/21 14:07 Freq: Status: Active Protocol: Document 06/19/21 10:30 MB (Rec: 06/19/21 12:22 MB [id number]) Hip Goniometric Range of Motion Hip ROM Limitations Comments Functional assessment only today d/t amount of training that needs to go into 45 minute eval and pre-op training: decreased left hip movement compared to the right with HS, gait, bed mobility and transfers and pt exhibits guarding behavior PT-OP-M Strength Start: 06/12/21 14:07 Freq: Status: Active Protocol: Document 10/31/21 13:05 [facility] (Rec: 10/31/21 14:26 [facility] [id number]) Hip Strength Hip Manual Muscle Testing Right Flexion (L2) 4 Good Extension (S1) 3+ Fair+ External Rotation 5 Normal Internal Rotation 5 Normal Left Flexion (L2) 4 Good Extension (S1) 3+ Fair+ Abduction 4- Good- External Rotation 3+ Fair+ Internal Rotation 5 Normal Comments IR tested in neutral position and hip flex w/pt leaned back into hands to avoid pt going greater than 90 deg hip flex; some pain in ant hip w. ext Knee Strength Knee Manual Muscle Testing Right Flexion (S2) 5 Normal Extension (L3) 5 Normal Left Flexion (S2) 5 Normal Extension (L3) 5 Normal Ankle/Foot Strength Ankle and Foot Manual Muscle Testing Left Dorsiflexion (L4) 4 Good Plantarflexion (S1) 4+ Good+ Right Dorsiflexion (L4) 5 Normal Plantarflexion (S1) 5 Normal Comments seated PF testing B PT-OP-Q Treatments Start: 06/12/21 14:07 Freq: Status: Active Protocol: Document 11/06/21 14:35 SP (Rec: 11/06/21 15:37 SP [id number]) Therapeutic Exercises Supine Exercises bridge Supine Exercise Name reviewed and instructed segmental bridge up/donw Side bilateral Reps/Minutes x10 Comments cued pain free huong stretch Supine Exercise Name review HEP, improved hip ext stretch Side left Reps/Minutes 60 w/ manual cross MFR Comments good stretch- L knee able decend little below bottom seam on table CHRISTOS Post-op HEP Supine Exercise Name SLR- added to HEP Side left Reps/Minutes 3 reps, 2 reps Comments L quad tires quickly, cued TA for LB support/ stabilization Standing Exercises band walk Standing Exercise Name F/B/Side stepping-review HEP Side bilateral Resistance R TB Equipment Used in//bar not needed Reps/Minutes 20 ft each direction Comments cued upright posture, TA Gait Training Gait Activity gait at wall Description dynamic gait: head turns/ vertical, quick forward, quick stop, pivot Device Used 0 Level of Assistance S Surface firm Distance/Duration 2 min Treatment Focus TA and hip abd fac w/ even fabien, stability Comments cued upright posture, TA even LE stance time fabien ( decreased on L). Manual Therapy Treatment Soft Tissue Mobilization thigh Body Location L circumfential quad Mobilization Type Myofascial Release Comments good manual feedback, able increase flexibility with ROM huong stretch post ITB Body Location L TFL & ITB Mobilization Type Rolling,Strumming Intensity/Depth Moderate Body Position Sidelying Comments manual and instruction on self appication rolling pin and racquetball on wall which uses in sock at home. scar Body Location L Mobilization Type Myofascial Release,Rolling, Strumming Intensity/Depth Moderate Body Position Sidelying glutes Body Location L glut, piriformis, QL Mobilization Type Rolling,Strumming,Sustained Pressure Intensity/Depth Moderate Body Position Sidelying Neuro Re-Education Treatment Balance Activities tilt board Details fwd/bwd and side Equipment //bars Reps/Duration 3 min Comments CGA, stable (shuttle balance next tx) PT-OP-T Assessment and Plan Start: 06/12/21 14:07 Freq: Status: Active Protocol: Document 11/06/21 14:35 SP (Rec: 11/06/21 15:37 SP [id number]) Physical Therapy Assessment Goals 5 Short Term Goal (STG) Pt will be able to walk 1 mile w/o inc pain greater than 4/ 10 09/20/21: pt stated 40 min walk lately and also ramp w/ B HR on dock but might have over did, discomfort L adductor/hip flexor. 09/27/21: Yesterday at [employer] using SPC about 20 min then grocery store about 6/10 pain. 10/01-15-25 min walk 6/10 10/15/21: progressing: [facility] 25 min la 4-5/10 earlier in day, contact use SPC range extendor. 10/31-after 20-25 min walks about 5/10 STG Duration 11/30/21 Proof Technician Helper Goal (LTG) Pt will be able to walk on trails w/walking sticks as needed w/o inc pain more than 2/10. 10/31-has not tried trails LTG Duration 01/31/22 4 Short Term Goal (STG) Pt will score at least 25/30 on FGA to show improved balance to dec fall risk 10/01- 10/31- STG Duration 11/30 Proof Technician Helper Goal (LTG) Pt will be able to go sailing on boat and go biking w/o concern for balance or have pain. LTG Duration 12/31/21 3 Short Term Goal (STG) Pt will be indep w/HEP fro strength, balance, gait and flexiblity. STG Duration achied progressing as able Proof Technician Helper Goal (LTG) Pt will score at least 4+/5 BLE MMT to show improved strength to allow for improved functional ability and return to higher level activities. 10/01-improved 10/31-cont improvement LTG Duration 12/31 2 [facility] Goal (LTG) Pt will perform 10 reps sit to stand without UE support in 30 sec to demonstrate improved functional hip strength and balance. 10/01- w/UEs 6x 10/15/21: 6.5 reps without UE support from mesh chair. 10/31-8.5 LTG Duration 12/31 1 Impairment 15/80 Short Term Goal (STG) Pt will present with an improved LEFS score to at least 30/80 to show improved functional ability. 10-01-24, improved 10/31-n/t STG Duration 11/30 Proof Technician Helper Goal (LTG) Pt will present with an improved LEFS score to at least 55/80 to show improved functional ability. LTG Duration 12/31 Assessment Summary Assessment Pt stated his low back and anterior L hip felt alot better end of tx post manual, ther ex and balance activities . Pt demonstraetd good stability on tilt board, progress to shuttle balance next tx. Physical Therapy Plan Frequency and Duration Frequency of Treatment 1-2x/week Duration of Treatment 2 months Plan of Care Start Date 10/31/21 Plan of Care End Date 12/31/21 Therapeutic Interventions Therapeutic Interventions Aquatic Therapy,Balance Training,Gait Training,Home Exercise Program,Joint Mobilizations,Manual Therapy, Neuromuscular Re-education, Patient/Caregiver Education, Self-Care/Home Management,Soft Tissue Mobilization,Taping, Therapeutic Activities, Therapeutic Exercises Modalities Cold Pack/Ice Massage,Electric Stimulation,Hot Packs Next Visit Focus/Plan Next Note Type Progress Note Next Visit Plan Recheck ortho 11/07 appt response. Recheck segmental bridge, add STS from raised black table. Continue: manual L quad, TFL, ITB and scar mobility. POC: cont to work on gait and push off and SLS.
--- NOTE | 2021-11-08 15:15 | PT.OTN ---
Current Diagnoses Unilateral primary osteoarthritis, left hip (11/08/21) Physical Therapy Treatment Note PT-OP-A Visit Information Start: 06/12/21 14:07 Freq: Status: Active Protocol: Document 11/08/21 14:33 SP (Rec: 11/08/21 15:30 SP [id number]) Out-Patient Physical Therapy Visit Information Visit Information Visit Type Treatment Note Visit Start Time 14:33 Visit Stop Time 15:15 Total Visit Minutes 42 Visit Number 21 Number of GENERAL MAINTENANCE HELPER Visits 3 Evaluation Information Evaluation Date 06/19/21 Precautions Precautions L Posterior hip precuations PT-OP-B Current Condition Start: 06/12/21 14:07 Freq: Status: Active Protocol: Document 09/03/21 12:53 LR (Rec: 09/05/21 08:17 [facility] [id number]) Current Condition History of Current Condition Onset Date 08/28/21 Current Complaints L CHRISTOS History of Current Condition 09/03: Pt had L post approach CHRISTOS and is taking pain meds to manage pain. he does feel that his legs are more even in length after L CHRISTOS. He has been compliant w/exercises. He was concerned about swelling but does note he has been sitting in dependent position a lot. IE:Pt has a history of two back surgeries in 2 1/2 years. He had ongoing left hip pain after both surgeries and PT had suspected underlying hip pathology. He finally got an appointment with Dr. Barger in March of 2021. He has a left THR scheduled on 06/26/2021 . He will have an posterior approach per handout in folder but pt does not recall what kind he will have. PMH: right foot surgery, right TKR, three lumbar surgeries including two fusions and left foot neuropathy. Pt is getting a RW at [facility]. He has a walk-in shower. He does not have a seat. He has two small steps and a threshold to get in the house or a threshold. There is no railing. Treatment Goals Patient/Caregiver Goals be able to sail on boat, go for walks including trails, get back to biking (possibly getting electric), be able to exercise to lose wt PT-OP-C Subjective Start: 06/12/21 14:07 Freq: Status: Active Protocol: Document 11/08/21 14:33 SP (Rec: 11/08/21 15:30 SP [id number]) OP-PT Subjective Patient Comments Patient Comments Pt improved decrease antalgic gait with no AD today. He reported saw ortho yesterday, stated surgery site looking good, didn't take xray L hip as thought would, instructed can do normal stuff but not being to carried away with it. PT-OP-E Functional Tests Start: 10/01/21 09:39 Freq: Status: Active Protocol: Document 10/31/21 13:05 [facility] (Rec: 10/31/21 14:26 [facility] [id number]) Functional Tests 30 Second Sit to Stand Test Score 8.5 Comments no hands Five Times Sit to Stand Test Score 17 sec Comments no hands PT-OP-G Mobility & Gait Start: 06/12/21 14:07 Freq: Status: Active Protocol: Document 09/03/21 12:53 [facility] (Rec: 09/05/21 08:14 [facility] [id number]) OP Mobility Evaluation Bed Mobility Supine to and from Sit indep Transfers Sit to Stand pt kicks LLE out in front to avoid 90 deg for sit<>stand OP Gait Assessment Comments Gait Comments Pt amb w/FWW with dec LLE stance time and push off. PT-OP-J Posture/Palpation/Skin Start: 06/12/21 14:07 Freq: Status: Active Protocol: Document 10/01/21 09:39 [facility] (Rec: 10/01/21 12:15 [facility] [id number]) Posture Evaluation [facility] Postural Classification System Lumbar Protective Mechanism Left AP 1 Lumbar Protective Mechanism Right AP 1 Lumbar Protective Mechanism Left PA 1 Lumbar Protective Mechanism Right PA 1 PT-OP-K Range of Motion Start: 06/12/21 14:07 Freq: Status: Active Protocol: Document 06/19/21 10:30 MB (Rec: 06/19/21 12:22 MB [id number]) Hip Goniometric Range of Motion Hip ROM Limitations Comments Functional assessment only today d/t amount of training that needs to go into 45 minute eval and pre-op training: decreased left hip movement compared to the right with HS, gait, bed mobility and transfers and pt exhibits guarding behavior PT-OP-M Strength Start: 06/12/21 14:07 Freq: Status: Active Protocol: Document 10/31/21 13:05 [facility] (Rec: 10/31/21 14:26 [facility] [id number]) Hip Strength Hip Manual Muscle Testing Right Flexion (L2) 4 Good Extension (S1) 3+ Fair+ External Rotation 5 Normal Internal Rotation 5 Normal Left Flexion (L2) 4 Good Extension (S1) 3+ Fair+ Abduction 4- Good- External Rotation 3+ Fair+ Internal Rotation 5 Normal Comments IR tested in neutral position and hip flex w/pt leaned back into hands to avoid pt going greater than 90 deg hip flex; some pain in ant hip w. ext Knee Strength Knee Manual Muscle Testing Right Flexion (S2) 5 Normal Extension (L3) 5 Normal Left Flexion (S2) 5 Normal Extension (L3) 5 Normal Ankle/Foot Strength Ankle and Foot Manual Muscle Testing Left Dorsiflexion (L4) 4 Good Plantarflexion (S1) 4+ Good+ Right Dorsiflexion (L4) 5 Normal Plantarflexion (S1) 5 Normal Comments seated PF testing B PT-OP-Q Treatments Start: 06/12/21 14:07 Freq: Status: Active Protocol: Document 11/08/21 14:33 SP (Rec: 11/08/21 15:30 [id number]) Cardio Equipment Bicycle (Upright) Duration (Minutes) 10 Resistance 15 Seat Position 10 Other good effort tiring 50 RPMs, 3. 16 Therapeutic Exercises Supine Exercises bridge Supine Exercise Name reviewed and instructed segmental bridge up/donw Side bilateral Reps/Minutes x10 Comments cued pain free, good form elongation extension Supine Exercise Name review HEP if needed for hip ext stretch Side left Reps/Minutes x5 Comments good feeling stretch L anterior hip CHRISTOS Post-op HEP Supine Exercise Name SLR- reviewed HEP Side left Reps/Minutes 3 reps, 2 reps Comments L quad tires quickly, cued TA for LB support/ stabilization Standing Exercises band walk Standing Exercise Name F/B/Side stepping-review HEP Side bilateral Resistance R TB Equipment Used in//bar not needed Reps/Minutes 20 ft each direction x2 laps Comments cued upright posture, TA STS Equipment Used mesh chair Reps/Minutes 8 reps in 30 sec no UE support Comments good form. Therapeutic Activity Therapeutic Activity on/ off floor Name sequencing to get items off floor Reps/Minutes x1 Comments states has done at home, ed and cues for LLE back position to help maintain precautions. Use chair support, S Gait Training Gait Activity stair mgt Description LLE wt acceptance Device Used R HR as needed ascend/descend Level of Assistance CGA Distance/Duration 28 MAP bldg stairs Treatment Focus receiprocal steps less 1 UE use, stability Comments Last activity of tx: back R hand light to nearby ascend and descend light glide on rail receiprocal stepping. Cued L glut hip ext full LE extension ascend gait Description ER hallway fwd, bkwd w/ head turns, quick walk and stopping , pivots Device Used 0 Level of Assistance SBA Surface slight incline/decline Distance/Duration 80 ft x2 laps Treatment Focus glut/ hip abd fac with balance recovery, even stride/ fabien Comments cued upright posturing, L hip ext toe off fwd gait Neuro Re-Education Treatment Balance Activities bosu Details lunge receiprocal stepping Equipment PRN light contact rail Reps/Duration x10 Balance in corner Details reviewed HEP (corner at home) Surface carpet Equipment near rail Comments tandem L forward 15s EC R forward 2 sec EC, 22sec EO PT-OP-T Assessment and Plan Start: 06/12/21 14:07 Freq: Status: Active Protocol: Document 11/08/21 14:33 SP (Rec: 11/08/21 15:30 SP [id number]) Physical Therapy Assessment Goals 5 Short Term Goal (STG) Pt will be able to walk 1 mile w/o inc pain greater than 4/ 10 09/20/21: pt stated 40 min walk lately and also ramp w/ B HR on dock but might have over did, discomfort L adductor/hip flexor. 09/27/21: Yesterday at [facility] using SPC about 20 min then grocery store about 6/10 pain. 10/01-15-25 min walk 6/10 10/15/21: progressing: Cap [place] 25 min la 4-5/10 earlier in day, contact use SPC range extendor. 10/31-after 20-25 min walks about 5/10 STG Duration 11/30/21 Fpc Goal (LTG) Pt will be able to walk on trails w/walking sticks as needed w/o inc pain more than 2/10. 10/31-has not tried trails LTG Duration 01/31/22 4 Short Term Goal (STG) Pt will score at least 25/30 on FGA to show improved balance to dec fall risk 10/01- 10/31- STG Duration 11/30 Aoc Director Combat Plans Officer Goal (LTG) Pt will be able to go sailing on boat and go biking w/o concern for balance or have pain. LTG Duration 12/31/21 3 Short Term Goal (STG) Pt will be indep w/HEP fro strength, balance, gait and flexiblity. STG Duration achied progressing as able Fpc Goal (LTG) Pt will score at least 4+/5 BLE MMT to show improved strength to allow for improved functional ability and return to higher level activities. 10/01-improved 10/31-cont improvement LTG Duration 12/31 2 Fpc Goal (LTG) Pt will perform 10 reps sit to stand without UE support in 30 sec to demonstrate improved functional hip strength and balance. 10/01- w/UEs 6x 10/15/21: 6.5 reps without UE support from mesh chair. 10/31-8.5 11/08/21: 8 reps in 30 s LTG Duration 12/31 progressing 1 Impairment 15/80 Short Term Goal (STG) Pt will present with an improved LEFS score to at least 30/80 to show improved functional ability. 10-01-, improved 10/31-n/t STG Duration 11/30 Fpc Goal (LTG) Pt will present with an improved LEFS score to at least 55/80 to show improved functional ability. LTG Duration 12/31 Assessment Summary Assessment Pt able get on/off floor to perform supine HEP for ability carryover at home on more firm surface S- Mod I with UE support of chair. Pt improved L hip extension stride with occasional cues during gait, ther ex and stairs. Physical Therapy Plan Frequency and Duration Frequency of Treatment 1-2x/week Duration of Treatment 2 months Plan of Care Start Date 10/31/21 Plan of Care End Date 12/31/21 Therapeutic Interventions Therapeutic Interventions Aquatic Therapy,Balance Training,Gait Training,Home Exercise Program,Joint Mobilizations,Manual Therapy, Neuromuscular Re-education, Patient/Caregiver Education, Self-Care/Home Management,Soft Tissue Mobilization,Taping, Therapeutic Activities, Therapeutic Exercises Modalities Cold Pack/Ice Massage,Electric Stimulation,Hot Packs Next Visit Focus/Plan Next Note Type Treatment Note Next Visit Plan Assess gait and LLE extension strengthening and flexibility. Continue: manual L quad, TFL, ITB and scar mobility. POC: cont to work on gait, hip ext push off and SLS.
--- NOTE | 2021-11-15 18:03 | PT.OTN ---
Current Diagnoses Unilateral primary osteoarthritis, left hip (11/15/21) Physical Therapy Treatment Note PT-OP-A Visit Information Start: 06/12/21 14:07 Freq: Status: Active Protocol: Document 11/15/21 16:05 [facility] (Rec: 11/15/21 18:03 [facility] [id number]) Out-Patient Physical Therapy Visit Information Visit Information Visit Type Treatment Note Visit Note 10/02 Visit Start Time 16:05 Visit Stop Time 16:45 Total Visit Minutes 40 Visit Number 22 Number of NON PROFIT FINANCIAL CONTROLLER Visits 0 PT-OP-B Current Condition Start: 06/12/21 14:07 Freq: Status: Active Protocol: Document 09/03/21 12:53 [facility] (Rec: 09/05/21 08:17 [facility] [id number]) Current Condition History of Current Condition Onset Date 08/28/21 Current Complaints L CHRISTOS History of Current Condition 09/03: Pt had L post approach CHRISTOS and is taking pain meds to manage pain. he does feel that his legs are more even in length after L CHRISTOS. He has been compliant w/exercises. He was concerned about swelling but does note he has been sitting in dependent position a lot. IE:Pt has a history of two back surgeries in 2 1/2 years. He had ongoing left hip pain after both surgeries and PT had suspected underlying hip pathology. He finally got an appointment with Dr. Barger in March of 2021. He has a left THR scheduled on 06/26/2021 . He will have an posterior approach per handout in folder but pt does not recall what kind he will have. PMH: right foot surgery, right TKR, three lumbar surgeries including two fusions and left foot neuropathy. Pt is getting a RW at [facility]. He has a walk-in shower. He does not have a seat. He has two small steps and a threshold to get in the house or a threshold. There is no railing. Treatment Goals Patient/Caregiver Goals be able to sail on boat, go for walks including trails, get back to biking (possibly getting electric), be able to exercise to lose wt PT-OP-C Subjective Start: 06/12/21 14:07 Freq: Status: Active Protocol: Document 11/15/21 16:05 [facility] (Rec: 11/15/21 18:03 [facility] [id number]) OP-PT Subjective Patient Comments Patient Comments Pt reports joining the gym and is feeling like he is close to finishing PT. PT-OP-E Functional Tests Start: 10/01/21 09:39 Freq: Status: Active Protocol: Document 10/31/21 13:05 [facility] (Rec: 10/31/21 14:26 [facility] [id number]) Functional Tests 30 Second Sit to Stand Test Score 8.5 Comments no hands Five Times Sit to Stand Test Score 17 sec Comments no hands PT-OP-G Mobility & Gait Start: 06/12/21 14:07 Freq: Status: Active Protocol: Document 09/03/21 12:53 [facility] (Rec: 09/05/21 08:14 [facility] [id number]) OP Mobility Evaluation Bed Mobility Supine to and from Sit indep Transfers Sit to Stand pt kicks LLE out in front to avoid 90 deg for sit<>stand OP Gait Assessment Comments Gait Comments Pt amb w/FWW with dec LLE stance time and push off. PT-OP-J Posture/Palpation/Skin Start: 06/12/21 14:07 Freq: Status: Active Protocol: Document 10/01/21 09:39 [facility] (Rec: 10/01/21 12:15 [facility] [id number]) Posture Evaluation [facility] Postural Classification System Lumbar Protective Mechanism Left AP 1 Lumbar Protective Mechanism Right AP 1 Lumbar Protective Mechanism Left PA 1 Lumbar Protective Mechanism Right PA 1 PT-OP-K Range of Motion Start: 06/12/21 14:07 Freq: Status: Active Protocol: Document 06/19/21 10:30 MB (Rec: 06/19/21 12:22 MB [id number]) Hip Goniometric Range of Motion Hip ROM Limitations Comments Functional assessment only today d/t amount of training that needs to go into 45 minute eval and pre-op training: decreased left hip movement compared to the right with HS, gait, bed mobility and transfers and pt exhibits guarding behavior PT-OP-M Strength Start: 06/12/21 14:07 Freq: Status: Active Protocol: Document 10/31/21 13:05 [facility] (Rec: 10/31/21 14:26 [facility] [id number]) Hip Strength Hip Manual Muscle Testing Right Flexion (L2) 4 Good Extension (S1) 3+ Fair+ External Rotation 5 Normal Internal Rotation 5 Normal Left Flexion (L2) 4 Good Extension (S1) 3+ Fair+ Abduction 4- Good- External Rotation 3+ Fair+ Internal Rotation 5 Normal Comments IR tested in neutral position and hip flex w/pt leaned back into hands to avoid pt going greater than 90 deg hip flex; some pain in ant hip w. ext Knee Strength Knee Manual Muscle Testing Right Flexion (S2) 5 Normal Extension (L3) 5 Normal Left Flexion (S2) 5 Normal Extension (L3) 5 Normal Ankle/Foot Strength Ankle and Foot Manual Muscle Testing Left Dorsiflexion (L4) 4 Good Plantarflexion (S1) 4+ Good+ Right Dorsiflexion (L4) 5 Normal Plantarflexion (S1) 5 Normal Comments seated PF testing B PT-OP-Q Treatments Start: 06/12/21 14:07 Freq: Status: Active Protocol: Document 11/15/21 16:05 [facility] (Rec: 11/15/21 18:03 [facility] [id number]) Therapeutic Exercises Standing Exercises wall posture Standing Exercise Name w/BUE ext Side bilateral Reps/Minutes 1 min hold ea march Standing Exercise Name EC Side bilateral Reps/Minutes 15 tandem Side bilateral Reps/Minutes trials and fwd walk lunges Side bilateral Equipment Used rail prn Reps/Minutes 12 sidestep Standing Exercise Name in mini squat Side bilateral Equipment Used L3 Reps/Minutes 20ft ea Manual Therapy Treatment Soft Tissue Mobilization lumbar Body Location QL & ES L Mobilization Type Rolling,Strumming Intensity/Depth Moderate Body Position Sidelying Comments w/post dep Self-Care/Home Management Treatment Education Other Education discussion of doing strengthening exercises every other day including activities like leg press at gym. Discussed cont to inc endurance w/ellipitcal and walks. Looked over HEP together and discussed plan for cont PT-OP-T Assessment and Plan Start: 06/12/21 14:07 Freq: Status: Active Protocol: Document 11/15/21 16:05 [facility] (Rec: 11/15/21 18:03 [facility] [id number]) Physical Therapy Assessment Goals 5 Short Term Goal (STG) Pt will be able to walk 1 mile w/o inc pain greater than 4/ 10 09/20/21: pt stated 40 min walk lately and also ramp w/ B HR on dock but might have over did, discomfort L adductor/hip flexor. 09/27/21: Yesterday at [employer] using SPC about 20 min then grocery store about 6/10 pain. 10/01-15-25 min walk 6/10/15/21: progressing: Cap [place] 25 min la 4-5 earlier in day, contact use SPC range extendor. 10/31-after 20-25 min walks about 5/10 STG Duration ACHIEVED just some back pain Shelter Goal (LTG) Pt will be able to walk on trails w/walking sticks as needed w/o inc pain more than 2/10. 10/31-has not tried trails LTG Duration 01/31/22 4 Short Term Goal (STG) Pt will score at least 25/30 on FGA to show improved balance to dec fall risk 10/01- 10/31- STG Duration 11/30 Senior Windows Administrator Goal (LTG) Pt will be able to go sailing on boat and go biking w/o concern for balance or have pain. LTG Duration 12/31/21 3 Short Term Goal (STG) Pt will be indep w/HEP fro strength, balance, gait and flexiblity. STG Duration achied progressing as able Shelter Goal (LTG) Pt will score at least 4+/5 BLE MMT to show improved strength to allow for improved functional ability and return to higher level activities. 10/01-improved 10/31-cont improvement LTG Duration 12/31 2 Senior Windows Administrator Goal (LTG) Pt will perform 10 reps sit to stand without UE support in 30 sec to demonstrate improved functional hip strength and balance. 10/01- w/UEs 6x 10/15/21: 6.5 reps without UE support from mesh chair. 10/31-8.5 11/08/21: 8 reps in 30 s LTG Duration 12/31 progressing 1 Impairment 15/80 Short Term Goal (STG) Pt will present with an improved LEFS score to at least 30/80 to show improved functional ability. 10-01-, improved 10/31-n/t STG Duration 11/30 Shelter Goal (LTG) Pt will present with an improved LEFS score to at least 55/80 to show improved functional ability. LTG Duration 12/31 Assessment Summary Assessment improved ability for pelvic post depression and dec hip pain w/pull and pt activation into post depression. He did well with new exercises but required a lot of cues for form w/resisted squat sidestep , wall posture and lunge. Physical Therapy Plan Frequency and Duration Frequency of Treatment 1-2x/week Duration of Treatment 2 months Plan of Care Start Date 10/31/21 Plan of Care End Date 12/31/21 Next Visit Focus/Plan Next Note Type Treatment Note Next Visit Plan review exercises from last session( tandem stance, EC march by counter, squat sidestep, wall posture, lunge) , work manually for gait (post dep/ant elevation
--- NOTE | 2021-11-21 15:21 | PT.OTN ---
Current Diagnoses Unilateral primary osteoarthritis, left hip (11/21/21) Physical Therapy Treatment Note PT-OP-A Visit Information Start: 06/12/21 14:07 Freq: Status: Active Protocol: Document 11/21/21 14:35 [facility] (Rec: 11/21/21 15:21 [facility] [id number]) Out-Patient Physical Therapy Visit Information Visit Information Visit Type Treatment Note Visit Note 11/02 Visit Start Time 14:34 Visit Stop Time 15:15 Total Visit Minutes 41 Visit Number 23 Number of MANAGER IN HOME Visits 0 PT-OP-B Current Condition Start: 06/12/21 14:07 Freq: Status: Active Protocol: Document 09/03/21 12:53 [facility] (Rec: 09/05/21 08:17 [facility] [id number]) Current Condition History of Current Condition Onset Date 08/28/21 Current Complaints L CHRISTOS History of Current Condition 09/03: Pt had L post approach CHRISTOS and is taking pain meds to manage pain. he does feel that his legs are more even in length after L CHRISTOS. He has been compliant w/exercises. He was concerned about swelling but does note he has been sitting in dependent position a lot. IE:Pt has a history of two back surgeries in 2 1/2 years. He had ongoing left hip pain after both surgeries and PT had suspected underlying hip pathology. He finally got an appointment with Dr. Barger in March of 2021. He has a left THR scheduled on 06/26/2021 . He will have an posterior approach per handout in folder but pt does not recall what kind he will have. PMH: right foot surgery, right TKR, three lumbar surgeries including two fusions and left foot neuropathy. Pt is getting a RW at [facility]. He has a walk-in shower. He does not have a seat. He has two small steps and a threshold to get in the house or a threshold. There is no railing. Treatment Goals Patient/Caregiver Goals be able to sail on boat, go for walks including trails, get back to biking (possibly getting electric), be able to exercise to lose wt PT-OP-C Subjective Start: 06/12/21 14:07 Freq: Status: Active Protocol: Document 11/21/21 14:35 [facility] (Rec: 11/21/21 15:21 [facility] [id number]) OP-PT Subjective Patient Comments Patient Comments Pt reprots going to gym and compliance w/exercises PT-OP-E Functional Tests Start: 10/01/21 09:39 Freq: Status: Active Protocol: Document 10/31/21 13:05 [facility] (Rec: 10/31/21 14:26 [facility] [id number]) Functional Tests 30 Second Sit to Stand Test Score 8.5 Comments no hands Five Times Sit to Stand Test Score 17 sec Comments no hands PT-OP-G Mobility & Gait Start: 06/12/21 14:07 Freq: Status: Active Protocol: Document 09/03/21 12:53 [facility] (Rec: 09/05/21 08:14 [facility] [id number]) OP Mobility Evaluation Bed Mobility Supine to and from Sit indep Transfers Sit to Stand pt kicks LLE out in front to avoid 90 deg for sit<>stand OP Gait Assessment Comments Gait Comments Pt amb w/FWW with dec LLE stance time and push off. PT-OP-J Posture/Palpation/Skin Start: 06/12/21 14:07 Freq: Status: Active Protocol: Document 10/01/21 09:39 [facility] (Rec: 10/01/21 12:15 [facility] [id number]) Posture Evaluation [facility] Postural Classification System Lumbar Protective Mechanism Left AP 1 Lumbar Protective Mechanism Right AP 1 Lumbar Protective Mechanism Left PA 1 Lumbar Protective Mechanism Right PA 1 PT-OP-K Range of Motion Start: 06/12/21 14:07 Freq: Status: Active Protocol: Document 06/19/21 10:30 [facility] (Rec: 06/19/21 12:22 [facility] [id number]) Hip Goniometric Range of Motion Hip ROM Limitations Comments Functional assessment only today d/t amount of training that needs to go into 45 minute eval and pre-op training: decreased left hip movement compared to the right with HS, gait, bed mobility and transfers and pt exhibits guarding behavior PT-OP-M Strength Start: 06/12/21 14:07 Freq: Status: Active Protocol: Document 10/31/21 13:05 [facility] (Rec: 10/31/21 14:26 [facility] [id number]) Hip Strength Hip Manual Muscle Testing Right Flexion (L2) 4 Good Extension (S1) 3+ Fair+ External Rotation 5 Normal Internal Rotation 5 Normal Left Flexion (L2) 4 Good Extension (S1) 3+ Fair+ Abduction 4- Good- External Rotation 3+ Fair+ Internal Rotation 5 Normal Comments IR tested in neutral position and hip flex w/pt leaned back into hands to avoid pt going greater than 90 deg hip flex; some pain in ant hip w. ext Knee Strength Knee Manual Muscle Testing Right Flexion (S2) 5 Normal Extension (L3) 5 Normal Left Flexion (S2) 5 Normal Extension (L3) 5 Normal Ankle/Foot Strength Ankle and Foot Manual Muscle Testing Left Dorsiflexion (L4) 4 Good Plantarflexion (S1) 4+ Good+ Right Dorsiflexion (L4) 5 Normal Plantarflexion (S1) 5 Normal Comments seated PF testing B PT-OP-Q Treatments Start: 06/12/21 14:07 Freq: Status: Active Protocol: Document 11/21/21 14:35 [facility] (Rec: 11/21/21 15:21 [facility] [id number]) Therapeutic Exercises Standing Exercises wall posture Standing Exercise Name w/BUE ext Side bilateral Reps/Minutes 1 min hold ea july Standing Exercise Name EC Side bilateral Reps/Minutes 15 tandem Side bilateral Reps/Minutes trials and fwd walk lunges Side bilateral Equipment Used rail prn Reps/Minutes 12 band walk Standing Exercise Name side step in squat Side bilateral Equipment Used L3 Reps/Minutes 15ft x2 B Manual Therapy Treatment Soft Tissue Mobilization thigh Body Location L HS, ITB, adductors Mobilization Type Myofascial Release,Rolling Intensity/Depth Moderate Comments w/hip flex AAROM & active HS stretch PT-OP-T Assessment and Plan Start: 06/12/21 14:07 Freq: Status: Active Protocol: Document 11/21/21 14:35 [facility] (Rec: 11/21/21 15:21 [facility] [id number]) Physical Therapy Assessment Goals 5 Short Term Goal (STG) Pt will be able to walk 1 mile w/o inc pain greater than / 10 09/20/21: pt stated 40 min walk lately and also ramp w/ B HR on dock but might have over did, discomfort L adductor/hip flexor. 09/27/21: Yesterday at [facility] using SPC about 20 min then grocery store about 6/10 pain. 10/01-15-25 min walk 6/10 10/15/21: progressing: [facility] [place] 25 min la 4-10/02 earlier in day, contact use SPC range extendor. 6/8-after 20-25 min walks about 5/10 STG Duration ACHIEVED just some back pain Chemical Pumper Goal (LTG) Pt will be able to walk on trails w/walking sticks as needed w/o inc pain more than 2/10. 10/31-has not tried trails LTG Duration 01/31/22 4 Short Term Goal (STG) Pt will score at least 25/30 on FGA to show improved balance to dec fall risk 10/01- 10/31- STG Duration 11/30 Chemical Pumper Goal (LTG) Pt will be able to go sailing on boat and go biking w/o concern for balance or have pain. LTG Duration 12/31/21 3 Short Term Goal (STG) Pt will be indep w/HEP fro strength, balance, gait and flexiblity. STG Duration achied progressing as able Chemical Pumper Goal (LTG) Pt will score at least 4+/5 BLE MMT to show improved strength to allow for improved functional ability and return to higher level activities. 10/01-improved 10/31-cont improvement LTG Duration 12/31 2 Chemical Pumper Goal (LTG) Pt will perform 10 reps sit to stand without UE support in 30 sec to demonstrate improved functional hip strength and balance. 10/01- w/UEs 6x 10/15/21: 6.5 reps without UE support from mesh chair. 10/31-8.5 11/08/21: 8 reps in 30 s LTG Duration 12/31 progressing 1 Impairment 15/80 Short Term Goal (STG) Pt will present with an improved LEFS score to at least 30/80 to show improved functional ability. 10-01-, improved 10/31-n/t STG Duration 11/30 Chemical Pumper Goal (LTG) Pt will present with an improved LEFS score to at least 55/80 to show improved functional ability. LTG Duration 12/31 Assessment Summary Assessment Pt did require review and cueing with exercises. he did well with them with added handout w/pics vs just names of exercises listed. he is improving w/form. W/manual pt had improved ability to flex hip and reach foot for shoes. Physical Therapy Plan Frequency and Duration Frequency of Treatment 1-2x/week Duration of Treatment 2 months Plan of Care Start Date 10/31/21 Plan of Care End Date 12/31/21 Next Visit Focus/Plan Next Note Type Treatment Note Next Visit Plan review exercises as needed, cont to work manually for gait mechanics.
--- NOTE | 2021-12-05 14:31 | PT.OTN ---
Current Diagnoses Unilateral primary osteoarthritis, left hip (12/05/21) Physical Therapy Treatment Note PT-OP-A Visit Information Start: 06/12/21 14:07 Freq: Status: Active Protocol: Document 12/05/21 13:50 [facility] (Rec: 12/05/21 14:31 [facility] [id number]) Out-Patient Physical Therapy Visit Information Visit Information Visit Type Treatment Note Visit Note 12/02 Visit Start Time 13:50 Visit Stop Time 14:31 Total Visit Minutes 41 Visit Number 24 Number of CAN REFORMING MACHINE OPERATOR Visits 1 Evaluation Information Evaluation Date 06/19/21 Precautions Precautions L Posterior hip precuations PT-OP-B Current Condition Start: 06/12/21 14:07 Freq: Status: Active Protocol: Document 09/03/21 12:53 [facility] (Rec: 09/05/21 08:17 [facility] [id number]) Current Condition History of Current Condition Onset Date 08/28/21 Current Complaints L CHRISTOS History of Current Condition 09/03: Pt had L post approach CHRISTOS and is taking pain meds to manage pain. he does feel that his legs are more even in length after L CHRISTOS. He has been compliant w/exercises. He was concerned about swelling but does note he has been sitting in dependent position a lot. IE:Pt has a history of two back surgeries in 2 1/2 years. He had ongoing left hip pain after both surgeries and PT had suspected underlying hip pathology. He finally got an appointment with Dr. Barger in March of 2021. He has a left THR scheduled on 06/26/2021 . He will have an posterior approach per handout in folder but pt does not recall what kind he will have. PMH: right foot surgery, right TKR, three lumbar surgeries including two fusions and left foot neuropathy. Pt is getting a RW at [facility]. He has a walk-in shower. He does not have a seat. He has two small steps and a threshold to get in the house or a threshold. There is no railing. Treatment Goals Patient/Caregiver Goals be able to sail on boat, go for walks including trails, get back to biking (possibly getting electric), be able to exercise to lose wt PT-OP-C Subjective Start: 06/12/21 14:07 Freq: Status: Active Protocol: Document 12/05/21 13:50 [facility] (Rec: 12/05/21 14:31 [facility] [id number]) OP-PT Subjective Patient Comments Patient Comments Pt reports pain 4th shld, 3rd L hip, 2nd knees, 1st place most pain in his back. He stated forgot to take tylenol early afternoon, takes 3-4/ daily 1 tab for assist stiffness and pain, Vicadin at night to assist sleeping if needed. Will follow up with ortho soon. PT-OP-E Functional Tests Start: 10/01/21 09:39 Freq: Status: Active Protocol: Document 10/31/21 13:05 [facility] (Rec: 10/31/21 14:26 [facility] [id number]) Functional Tests 30 Second Sit to Stand Test Score 8.5 Comments no hands Five Times Sit to Stand Test Score 17 sec Comments no hands PT-OP-G Mobility & Gait Start: 06/12/21 14:07 Freq: Status: Active Protocol: Document 09/03/21 12:53 [facility] (Rec: 09/05/21 08:14 [facility] [id number]) OP Mobility Evaluation Bed Mobility Supine to and from Sit indep Transfers Sit to Stand pt kicks LLE out in front to avoid 90 deg for sit<>stand OP Gait Assessment Comments Gait Comments Pt amb w/FWW with dec LLE stance time and push off. PT-OP-J Posture/Palpation/Skin Start: 06/12/21 14:07 Freq: Status: Active Protocol: Document 10/01/21 09:39 [facility] (Rec: 10/01/21 12:15 [facility] [id number]) Posture Evaluation [facility] Postural Classification System Lumbar Protective Mechanism Left AP 1 Lumbar Protective Mechanism Right AP 1 Lumbar Protective Mechanism Left PA 1 Lumbar Protective Mechanism Right PA 1 PT-OP-K Range of Motion Start: 06/12/21 14:07 Freq: Status: Active Protocol: Document 06/19/21 10:30 [facility] (Rec: 06/19/21 12:22 [facility] [id number]) Hip Goniometric Range of Motion Hip ROM Limitations Comments Functional assessment only today d/t amount of training that needs to go into 45 minute eval and pre-op training: decreased left hip movement compared to the right with HS, gait, bed mobility and transfers and pt exhibits guarding behavior PT-OP-M Strength Start: 06/12/21 14:07 Freq: Status: Active Protocol: Document 10/31/21 13:05 [facility] (Rec: 10/31/21 14:26 [facility] [id number]) Hip Strength Hip Manual Muscle Testing Right Flexion (L2) 4 Good Extension (S1) 3+ Fair+ External Rotation 5 Normal Internal Rotation 5 Normal Left Flexion (L2) 4 Good Extension (S1) 3+ Fair+ Abduction 4- Good- External Rotation 3+ Fair+ Internal Rotation 5 Normal Comments IR tested in neutral position and hip flex w/pt leaned back into hands to avoid pt going greater than 90 deg hip flex; some pain in ant hip w. ext Knee Strength Knee Manual Muscle Testing Right Flexion (S2) 5 Normal Extension (L3) 5 Normal Left Flexion (S2) 5 Normal Extension (L3) 5 Normal Ankle/Foot Strength Ankle and Foot Manual Muscle Testing Left Dorsiflexion (L4) 4 Good Plantarflexion (S1) 4+ Good+ Right Dorsiflexion (L4) 5 Normal Plantarflexion (S1) 5 Normal Comments seated PF testing B PT-OP-Q Treatments Start: 06/12/21 14:07 Freq: Status: Active Protocol: Document 12/05/21 13:50 [facility] (Rec: 12/05/21 14:31 [id number]) Cardio Equipment Bicycle (Upright) Duration (Minutes) 8 Resistance 15 Seat Position 10 Other good effort tiring 50 RPMs, 3. 16 Therapeutic Exercises Standing Exercises march Side bilateral Equipment Used rail Reps/Minutes 15 Comments good ROM tandem Standing Exercise Name fwd/bkwd walk Side bilateral Equipment Used crab backer contact HR Min> intermittent Reps/Minutes 15 ft 4 laps Comments cued posturing, scap complex and core fac for stability- improved lunges Side bilateral Equipment Used rail support Reps/Minutes 12 Comments cued mini range, to band walk Standing Exercise Name side step in squat Side bilateral Equipment Used GTB Reps/Minutes 15ft x2 B Comments cued posture upright and hip ext with side step to decrease hip flexor tiir Manual Therapy Treatment Soft Tissue Mobilization thigh Body Location L HS, ITB, adductors Mobilization Type Myofascial Release,Rolling Intensity/Depth Moderate Comments manual ITB Body Location L TFL & ITB Mobilization Type Instrument Assisted,Rolling, Strumming Intensity/Depth Moderate Body Position Sidelying Comments manual and rolling stick scar Body Location L Mobilization Type Myofascial Release,Rolling, Strumming Intensity/Depth Moderate Body Position Sidelying Comments instructed continue self STMs PT-OP-T Assessment and Plan Start: 06/12/21 14:07 Freq: Status: Active Protocol: Document 12/05/21 13:50 [facility] (Rec: 12/05/21 14:31 SP [id number]) Physical Therapy Assessment Goals 5 Short Term Goal (STG) Pt will be able to walk 1 mile w/o inc pain greater than 4/ 10 09/20/21: pt stated 40 min walk lately and also ramp w/ B HR on dock but might have over did, discomfort L adductor/hip flexor. 09/27/21: Yesterday at [place] using SPC about 20 min then grocery store about 6/10 pain. 10/01-15-25 min walk 6/10 10/15/21: progressing: [place] 25 min la 4-5 earlier in day, contact use SPC range extendor. 10/31-after 20-25 min walks about 5/10 STG Duration ACHIEVED just some back pain Food Specialist Goal (LTG) Pt will be able to walk on trails w/walking sticks as needed w/o inc pain more than 2/10. 10/31-has not tried trails LTG Duration 01/31/22 4 Short Term Goal (STG) Pt will score at least 25/30 on FGA to show improved balance to dec fall risk 10/01- 10/31- STG Duration 11/30 Food Specialist Goal (LTG) Pt will be able to go sailing on boat and go biking w/o concern for balance or have pain. LTG Duration 12/31/21 3 Short Term Goal (STG) Pt will be indep w/HEP fro strength, balance, gait and flexiblity. STG Duration achied progressing as able Alf Goal (LTG) Pt will score at least 4+/5 BLE MMT to show improved strength to allow for improved functional ability and return to higher level activities. 10/01-improved 10/31-cont improvement LTG Duration 12/31 2 Food Specialist Goal (LTG) Pt will perform 10 reps sit to stand without UE support in 30 sec to demonstrate improved functional hip strength and balance. 10/01- w/UEs 6x 10/15/21: 6.5 reps without UE support from mesh chair. 10/31-8.5 11/08/21: 8 reps in 30 s LTG Duration 12/31 progressing 1 Impairment 15/80 Short Term Goal (STG) Pt will present with an improved LEFS score to at least 30/80 to show improved functional ability. -24, improved 10/31-n/t STG Duration achieved to 41 11/21 Food Specialist Goal (LTG) Pt will present with an improved LEFS score to at least 55/80 to show improved functional ability. LTG Duration 12/31 Assessment Summary Assessment Pt responded well to manual, instructed continue at home. Cued for posturing and awareness of hip ext during band walk to decrease hip flexor recruitment, reminded to continue back/ core exercises performed in past and self manual learned and modalities for comfort with LBP. Physical Therapy Plan Frequency and Duration Frequency of Treatment 1-2x/week Duration of Treatment 2 months Plan of Care Start Date 10/31/21 Plan of Care End Date 12/31/21 Therapeutic Interventions Therapeutic Interventions Aquatic Therapy,Balance Training,Gait Training,Home Exercise Program,Joint Mobilizations,Manual Therapy, Neuromuscular Re-education, Patient/Caregiver Education, Self-Care/Home Management,Soft Tissue Mobilization,Taping, Therapeutic Activities, Therapeutic Exercises Modalities Cold Pack/Ice Massage,Electric Stimulation,Hot Packs Next Visit Focus/Plan Next Note Type Treatment Note Next Visit Plan Continue hip ext with TA/ neutral pelvis and manual to decrease hip flexor recruitment. POC: review exercises as needed, cont to work manually for gait mechanics.
--- NOTE | 2021-12-18 18:01 | PT.OTN ---
Current Diagnoses Unilateral primary osteoarthritis, left hip (12/18/21) Physical Therapy Treatment Note PT-OP-A Visit Information Start: 06/12/21 14:07 Freq: Status: Active Protocol: Document 12/18/21 14:35 [facility] (Rec: 12/18/21 18:01 [facility] [id number]) Out-Patient Physical Therapy Visit Information Visit Information Visit Type Discharge Summary Visit Start Time 14:35 Visit Stop Time 15:15 Total Visit Minutes 40 Visit Number 25 Number of MANAGER STRATEGIC ALLIANCES Visits 0 PT-OP-B Current Condition Start: 06/12/21 14:07 Freq: Status: Active Protocol: Document 09/03/21 12:53 [facility] (Rec: 09/05/21 08:17 [facility] [id number]) Current Condition History of Current Condition Onset Date 08/28/21 Current Complaints L CHRISTOS History of Current Condition 09/03: Pt had L post approach CHRISTOS and is taking pain meds to manage pain. he does feel that his legs are more even in length after L CHRISTOS. He has been compliant w/exercises. He was concerned about swelling but does note he has been sitting in dependent position a lot. IE:Pt has a history of two back surgeries in 2 1/2 years. He had ongoing left hip pain after both surgeries and PT had suspected underlying hip pathology. He finally got an appointment with Dr. Barger in March of 2021. He has a left THR scheduled on 06/26/2021 . He will have an posterior approach per handout in folder but pt does not recall what kind he will have. PMH: right foot surgery, right TKR, three lumbar surgeries including two fusions and left foot neuropathy. Pt is getting a RW at [facility]. He has a walk-in shower. He does not have a seat. He has two small steps and a threshold to get in the house or a threshold. There is no railing. Treatment Goals Patient/Caregiver Goals be able to sail on boat, go for walks including trails, get back to biking (possibly getting electric), be able to exercise to lose wt PT-OP-C Subjective Start: 06/12/21 14:07 Freq: Status: Active Protocol: Document 12/18/21 14:35 [facility] (Rec: 12/18/21 18:01 [facility] [id number]) OP-PT Subjective Patient Comments Patient Comments Pt reports hip is doing better overall but still does give him some pain. He feels good w /indep HEP & gym program PT-OP-E Functional Tests Start: 10/01/21 09:39 Freq: Status: Active Protocol: Document 12/18/21 14:35 [facility] (Rec: 12/18/21 18:01 [facility] [id number]) Functional Tests Functional Gait Assessment Score 21 PT-OP-G Mobility & Gait Start: 06/12/21 14:07 Freq: Status: Active Protocol: Document 09/03/21 12:53 [facility] (Rec: 09/05/21 08:14 [facility] [id number]) OP Mobility Evaluation Bed Mobility Supine to and from Sit indep Transfers Sit to Stand pt kicks LLE out in front to avoid 90 deg for sit<>stand OP Gait Assessment Comments Gait Comments Pt amb w/FWW with dec LLE stance time and push off. PT-OP-J Posture/Palpation/Skin Start: 06/12/21 14:07 Freq: Status: Active Protocol: Document 10/01/21 09:39 [facility] (Rec: 10/01/21 12:15 [facility] [id number]) Posture Evaluation [facility] Postural Classification System Lumbar Protective Mechanism Left AP 1 Lumbar Protective Mechanism Right AP 1 Lumbar Protective Mechanism Left PA 1 Lumbar Protective Mechanism Right PA 1 PT-OP-K Range of Motion Start: 06/12/21 14:07 Freq: Status: Active Protocol: Document 06/19/21 10:30 MB (Rec: 06/19/21 12:22 MB [id number]) Hip Goniometric Range of Motion Hip ROM Limitations Comments Functional assessment only today d/t amount of training that needs to go into 45 minute eval and pre-op training: decreased left hip movement compared to the right with HS, gait, bed mobility and transfers and pt exhibits guarding behavior PT-OP-M Strength Start: 06/12/21 14:07 Freq: Status: Active Protocol: Document 12/18/21 14:35 [facility] (Rec: 12/18/21 18:01 [facility] [id number]) Hip Strength Hip Manual Muscle Testing Right Flexion (L2) 4 Good Extension (S1) 3+ Fair+ Abduction 5 Normal External Rotation 5 Normal Internal Rotation 5 Normal Left Flexion (L2) 4 Good Extension (S1) 3+ Fair+ Abduction 4+ Good+ External Rotation 4- Good- Internal Rotation 5 Normal Knee Strength Knee Manual Muscle Testing Right Flexion (S2) 5 Normal Extension (L3) 5 Normal Left Flexion (S2) 5 Normal Extension (L3) 5 Normal Ankle/Foot Strength Ankle and Foot Manual Muscle Testing Left Dorsiflexion (L4) 4 Good Plantarflexion (S1) 4+ Good+ Right Dorsiflexion (L4) 5 Normal Plantarflexion (S1) 5 Normal Comments seated PF testing B PT-OP-Q Treatments Start: 06/12/21 14:07 Freq: Status: Active Protocol: Document 12/18/21 14:35 [facility] (Rec: 12/18/21 18:01 [facility] [id number]) Therapeutic Exercises Supine Exercises stretch Side bilateral march Side bilateral Reps/Minutes 12 Comments Tabd core Supine Exercise Name isometric flex SL Side bilateral Reps/Minutes 30 sec Manual Therapy Treatment Joint Mobilizations hip Joint B Direction inf FM Grade II Self-Care/Home Management Treatment Education Patient Education Home Exercise Program Other Education review of HEP, discussion of dec of HEP to every other day and not all exercises need to be done every exercise session but doing mix and match of exercies. discussed importance of cont stretching exercises. Edu re: importance of core work PT-OP-T Assessment and Plan Start: 06/12/21 14:07 Freq: Status: Active Protocol: Document 12/18/21 14:35 [facility] (Rec: 12/18/21 18:01 [facility] [id number]) Physical Therapy Assessment Goals 5 Short Term Goal (STG) Pt will be able to walk 1 mile w/o inc pain greater than 4/ 10 09/20/21: pt stated 40 min walk lately and also ramp w/ B HR on dock but might have over did, discomfort L adductor/hip flexor. 09/27/21: Yesterday at [facility] using SPC about 20 min then grocery store about 6/10 pain. 10/01-15-25 min walk 6/10 10/15/21: progressing: [place] 25 min la 4-5/10 earlier in day, contact use SPC range extendor. 10/31-after 20-25 min walks about 5/10 STG Duration ACHIEVED just some back pain Nursing Home Goal (LTG) Pt will be able to walk on trails w/walking sticks as needed w/o inc pain more than 2/10. 10/31-has not tried trails LTG Duration has not tried trails 4 Short Term Goal (STG) Pt will score at least 25/30 on FGA to show improved balance to dec fall risk 10/01- 10/31- STG Duration improved to 21/30 Nursing Home Goal (LTG) Pt will be able to go sailing on boat and go biking w/o concern for balance or have pain. LTG Duration has not tried yet-awaiting to feel more strength 3 Short Term Goal (STG) Pt will be indep w/HEP fro strength, balance, gait and flexiblity. STG Duration achied progressing as able Diagrammer Goal (LTG) Pt will score at least 4+/5 BLE MMT to show improved strength to allow for improved functional ability and return to higher level activities. 10/01-improved 10/31-cont improvement LTG Duration improved 2 Diagrammer Goal (LTG) Pt will perform 10 reps sit to stand without UE support in 30 sec to demonstrate improved functional hip strength and balance. 10/01- w/UEs 6x 10/15/21: 6.5 reps without UE support from mesh chair. 10/31-8.5 11/08/21: 8 reps in 30 s 12/18-n/t LTG Duration 12/31 progressing 1 Impairment 15/80 Short Term Goal (STG) Pt will present with an improved LEFS score to at least 30/80 to show improved functional ability. 10-02-23, improved 10/31-n/t STG Duration achieved to 41 11/21 Diagrammer Goal (LTG) Pt will present with an improved LEFS score to at least 55/80 to show improved functional ability. 12/18-n/t LTG Duration 12/31 Assessment Summary Assessment Pt is starting to plateau and is indep w/HEP. Pt ready to be indep w/progression. He has made excellent gains w/PT and has a long recovery d/t years of deconditioning w/his back surgeries, COVID and multiple other issues/pains (B knees, R shoulder & back) that also limit him. He is now doing well w/home program and gym program and progressing his strength & mobility. He has improved functionally w/PT and at this time is DC to HEP. Physical Therapy Plan Discharge Physical Therapy Discharge Reasons Plateau in Progress Discharge Comments Pt is starting to plateau and is indep w/HEP. Pt ready to be indep w/progression
== END 2021-12-19 13:57 ==
LOC: PHYS 14:30
PROVIDERS: Family Provider Internal Medicine; PCP Internal Medicine; Referring Provider Orthopaedic Surgery; Visit Provider Orthopaedic Surgery
DX: M16.12 Unilateral primary osteoarthritis, left hip (principal)
CPT/HCPCS: 97110; 97112; 97116; 97140; 97161; 97164; 97530; 97535

== ENCOUNTER 2023-04-04 15:15 | Outpatient (RCR) | payer MEDICARE, SELFPAY ==
[2021-08-28 17:41] VITALS: BMI 31.6
--- NOTE | 2023-02-20 17:09 | PT.OIE ---
Current Diagnoses Other chronic pain (02/20/23) Low back pain, unspecified (02/20/23) Past Medical History (Last Reviewed 08/28/21 @ 14:15 by Deanna Barger MD) Anxiety Exposure to COVID-19 virus (~07/2019) GERD (gastroesophageal reflux disease) HTN (hypertension) Hyperlipidemia Kidney stones PVC's (premature ventricular contractions) RBBB (right bundle branch block) Past Surgical History (Last Reviewed 08/28/21 @ 14:15 by Deanna Barger MD) History of arthroplasty of right knee (01/23/15) History of lumbar spinal fusion (12/08/19) History of lumbar spinal fusion (11/20/20) History of vasectomy (1989) Hx of appendectomy Hx of eye surgery Hx of foot surgery (1984) Hx of laminectomy (~1989) Hx of lithotripsy Visit Care Team Role Provider Type Tano Sorenson MD Family Provider Physician Primary Care Provider Specialty: Internal Medicine Address: [address] [place] [address] Email: Maria Luisa Wagoner MD Attending Provider Physician Referring Provider Specialty: Internal Medicine Address: [place] [address] Phone: Email: Physical Therapy Initial Evaluation PT-OP-A Visit Information Start: 02/20/23 16:04 Freq: Status: Active Protocol: Document 02/20/23 16:55 ED (Rec: 02/20/23 17:09 ED [id number]) Out-Patient Physical Therapy Visit Information Visit Information Visit Type Initial Evaluation Visit Start Time 16:00 Visit Stop Time 16:45 Total Visit Minutes 45 Visit Number 1 Evaluation Information Evaluation Date 02/20/23 PT-OP-B Current Condition Start: 02/20/23 16:04 Freq: Status: Active Protocol: Document 02/20/23 16:55 ED (Rec: 02/20/23 17:09 ED [id number]) Current Condition History of Current Condition Onset Date chronic Current Complaints low back pain, R hip, L knee History of Current Condition Pt states that he has had 3 surgeries for his low back, a CHRISTOS, and a TKA. Some of these surgeries were done in the ' s. he states that he is worse in the PM in regards to functional mobility. Pain typically is between a 5-6/10 but occasionally can become an 7-8/10. He notes weakness in his L LE mostly in his knee extensors which may be d/t to his previous back injuries and surgeries. He is not using an AD currently. Patient states he has to use a sock aid and shoe horn to help him don socks/shoes d/t the lack of flexiblity in his low back. He goes to [employer] 2x/ week and has a full body routine that he follows. Treatment Goals Patient/Caregiver Goals Be able to get on/off his boat Be able to put shoes on without AD PT-OP-C Subjective Start: 02/20/23 16:04 Freq: Status: Active Protocol: Document 02/20/23 16:55 ED (Rec: 02/20/23 17:09 ED [id number]) Patient Questionnaires Oswestry Low Back Index Oswestry Score 14 / 50 = 28.0 % Oswestry Impairment 20 to 39% Impaired (Score 20- 39) PT-OP-E Functional Tests Start: 02/20/23 16:04 Freq: Status: Active Protocol: Document 02/20/23 16:55 ED (Rec: 02/20/23 17:09 ED [id number]) Functional Tests 30 Second Sit to Stand Test Score 6 Comments 17'' surface; no UE assist PT-OP-K Range of Motion Start: 02/20/23 16:04 Freq: Status: Active Protocol: Document 02/20/23 16:55 ED (Rec: 02/20/23 17:09 ED [id number]) Lumbar Spine Range of Motion Lumbar Spine Active Testing Position Sitting Flexion 20 Extension 5 ROM Limitations Soft Tissue Tightness,Bony Restriction PT-OP-M Strength Start: 02/20/23 16:04 Freq: Status: Active Protocol: Document 02/20/23 16:55 ED (Rec: 02/20/23 17:09 ED [id number]) Knee Strength Knee Manual Muscle Testing Right Flexion (S2) 4 Good Extension (L3) 4 Good Left Flexion (S2) 4 Good Extension (L3) 4- Good- PT-OP-T Assessment and Plan Start: 02/20/23 16:04 Freq: Status: Active Protocol: Document 02/20/23 16:55 ED (Rec: 02/20/23 17:09 ED [id number]) Physical Therapy Assessment Rehab Potential Rehabilitation Potential Fair Evaluation Complexity Number of Personal Factors/Comorbidities 1-2 Number of Body Systems Impaired 3 Clinical Presentation at Evaluation Stable Impairments Impairments Activity Tolerance,Functional Activities,Functional Mobility ,Pain,ROM,Strength Goals % improvement Impairment % improvement Short Term Goal (STG) pt will report 15% improvement in functional mobility.. STG Duration 3 weeks State Assessed Properties Director Goal (LTG) Pt will report 30% improvement in functional mobility. LTG Duration 6-8 weeks 30'' STS Impairment 30 second STS Short Term Goal (STG) Pt will improve 30 second STS score by 5 repetitions to a score of 11 repetitions. STG Duration 3 weeks State Assessed Properties Director Goal (LTG) Pt will improve 30 second STS score by 7 repetitions to a score of 13 repetitions. LTG Duration 6-8 weeks Oswestry State Assessed Properties Director Goal (LTG) Pt will improve Oswestry score by > 10 points to a score of <4/50. LTG Duration 6-8 weeks HEP Impairment HEP Short Term Goal (STG) Pt will report performing HEP >3 days/week. STG Duration 3 weeks State Assessed Properties Director Goal (LTG) Pt will report performing HEP >3 days/week. LTG Duration 6-8 weeks Assessment Summary Assessment Pt reported to PT for chronic low back pain accompanied with L LE weakness and R knee pain . Pt has long history of surgereries including fusion, hip replacement, and knee replacements. Pt demonstrated below average strength for LEs as observed during 30 second sit to stand test; he completed 6 repetitions whereas a score of 11-17 repetitions in considered normal for his age and sex matched peers. Pt also restricted in ROM in hip and lumbar spine as he is unable to bend over to don/doff shoes ; one of his goals being to be able to don socks without a sock aid. PT provided initial HEP of: sit<>stands, staggered sit<>stands, and seated lumbar flexion with UE support . Pt able to do movements today c/o irritation or discomfort. Physical Therapy Plan Frequency and Duration Frequency of Treatment 2x/Week Duration of treatment (weeks) 10 Plan of Care Start Date 02/20/23 Plan of Care End Date 05/21/23 Therapeutic Interventions Therapeutic Interventions Gait Training,Home Exercise Program,Joint Mobilizations, Manual Therapy,Neuromuscular Re-education,Orthotic/ Prosthetic Management,Patient/ Caregiver Education,Self-Care/ Home Management,Soft Tissue Mobilization,Taping, Therapeutic Activities, Therapeutic Exercises Modalities Biofeedback,Cold Pack/Ice Massage,Electric Stimulation, Hot Packs,Ultrasound Next Visit Focus/Plan Next Note Type Treatment Note Next Visit Plan elliptical? sit<>stand,PB flexion, unilateral leg press, unilateral knee extension, lateral band walks
--- NOTE | 2023-02-20 17:09 | PT.OPPOC ---
Physical, Occupational & Speech Therapy At [facility] Current Diagnoses Other chronic pain (02/20/23) Low back pain, unspecified (02/20/23) Visit Care Team Role Provider Type Tano Sorenson MD Family Provider Physician Primary Care Provider Specialty: Internal Medicine Address: [address] [place] [address] Email: Maria Luisa Wagoner MD Attending Provider Physician Referring Provider Specialty: Internal Medicine Address: [place] [phone] Phone: Email: Plan Of Care PT-OP-T Assessment and Plan Start: 02/20/23 16:04 Freq: Status: Active Protocol: Document 02/20/23 16:55 ED (Rec: 02/20/23 17:09 ED [id number]) Physical Therapy Assessment Rehab Potential Rehabilitation Potential Fair Evaluation Complexity Number of Personal Factors/Comorbidities 1-2 Number of Body Systems Impaired 3 Clinical Presentation at Evaluation Stable Impairments Impairments Activity Tolerance,Functional Activities,Functional Mobility ,Pain,ROM,Strength Goals % improvement Impairment % improvement Short Term Goal (STG) pt will report 15% improvement in functional mobility.. STG Duration 3 weeks Manager Furniture Goal (LTG) Pt will report 30% improvement in functional mobility. LTG Duration 6-8 weeks 30'' STS Impairment 30 second STS Short Term Goal (STG) Pt will improve 30 second STS score by 5 repetitions to a score of 11 repetitions. STG Duration 3 weeks Manager Furniture Goal (LTG) Pt will improve 30 second STS score by 7 repetitions to a score of 13 repetitions. LTG Duration 6-8 weeks Oswestry Manager Furniture Goal (LTG) Pt will improve Oswestry score by > 10 points to a score of <4/50. LTG Duration 6-8 weeks HEP Impairment HEP Short Term Goal (STG) Pt will report performing HEP >3 days/week. STG Duration 3 weeks Manager Furniture Goal (LTG) Pt will report performing HEP >3 days/week. LTG Duration 6-8 weeks Assessment Summary Assessment Pt reported to PT for chronic low back pain accompanied with L LE weakness and R knee pain . Pt has long history of surgereries including fusion, hip replacement, and knee replacements. Pt demonstrated below average strength for LEs as observed during 30 second sit to stand test; he completed 6 repetitions whereas a score of 11-17 repetitions in considered normal for his age and sex matched peers. Pt also restricted in ROM in hip and lumbar spine as he is unable to bend over to don/doff shoes ; one of his goals being to be able to don socks without a sock aid. PT provided initial HEP of: sit<>stands, staggered sit<>stands, and seated lumbar flexion with UE support . Pt able to do movements today c/o irritation or discomfort. Physical Therapy Plan Frequency and Duration Frequency of Treatment 2x/Week Duration of treatment (weeks) 10 Plan of Care Start Date 02/20/23 Plan of Care End Date 05/21/23 Therapeutic Interventions Therapeutic Interventions Gait Training,Home Exercise Program,Joint Mobilizations, Manual Therapy,Neuromuscular Re-education,Orthotic/ Prosthetic Management,Patient/ Caregiver Education,Self-Care/ Home Management,Soft Tissue Mobilization,Taping, Therapeutic Activities, Therapeutic Exercises Modalities Biofeedback,Cold Pack/Ice Massage,Electric Stimulation, Hot Packs,Ultrasound Next Visit Focus/Plan Next Note Type Treatment Note Next Visit Plan elliptical? sit<>stand,PB flexion, unilateral leg press, unilateral knee extension, lateral band walks Plan of Care Dates Plan of Care Start Date 02/20/23 Plan of Care End Date 05/21/23 Electronically Signed by: Tigre Grant, PT 02/20/23 0727 If you are in agreement with this Plan of Care, please return a signed and dated copy. I have reviewed this Plan of Care and certify that the skilled therapy services above are required to meet the patient?s needs. Physician Signature Date Printed Name and Credentials Clinical Instructor Signature Printed Name and Credentials
--- NOTE | 2023-02-26 15:50 | PT.OTN ---
Current Diagnoses Other chronic pain (02/26/23) Low back pain, unspecified (02/26/23) Physical Therapy Treatment Note PT-OP-A Visit Information Start: 02/20/23 16:04 Freq: Status: Active Protocol: Document 02/26/23 15:43 ED (Rec: 02/26/23 15:49 ED [id number]) Out-Patient Physical Therapy Visit Information Visit Information Visit Type Treatment Note Visit Note 07/05 Visit Start Time 15:10 Visit Stop Time 15:50 Total Visit Minutes 40 Visit Number 2 PT-OP-B Current Condition Start: 02/20/23 16:04 Freq: Status: Active Protocol: Document 02/20/23 16:55 ED (Rec: 02/20/23 17:09 ED [id number]) Current Condition History of Current Condition Onset Date chronic Current Complaints low back pain, R hip, L knee History of Current Condition Pt states that he has had 3 surgeries for his low back, a CHRISTOS, and a TKA. Some of these surgeries were done in the ' s. he states that he is worse in the PM in regards to functional mobility. Pain typically is between a 5-6/10 but occasionally can become an 7-8/10. He notes weakness in his L LE mostly in his knee extensors which may be d/t to his previous back injuries and surgeries. He is not using an AD currently. Patient states he has to use a sock aid and shoe horn to help him don socks/shoes d/t the lack of flexiblity in his low back. He goes to [email or web address] 2x/ week and has a full body routine that he follows. Treatment Goals Patient/Caregiver Goals Be able to get on/off his boat Be able to put shoes on without AD PT-OP-C Subjective Start: 02/20/23 16:04 Freq: Status: Active Protocol: Document 02/26/23 15:43 ED (Rec: 02/26/23 15:49 ED [id number]) OP-PT Subjective Patient Comments Patient Comments Pt states that he has been doing about 2-3 sets of each exercise provided at [facility]. Denies any increased pain or discomfort during or after performing them. PT-OP-E Functional Tests Start: 02/20/23 16:04 Freq: Status: Active Protocol: Document 02/20/23 16:55 ED (Rec: 02/20/23 17:09 ED [id number]) Functional Tests 30 Second Sit to Stand Test Score 6 Comments 17'' surface; no UE assist PT-OP-K Range of Motion Start: 02/20/23 16:04 Freq: Status: Active Protocol: Document 02/20/23 16:55 ED (Rec: 02/20/23 17:09 ED [id number]) Lumbar Spine Range of Motion Lumbar Spine Active Testing Position Sitting Flexion 20 Extension 5 ROM Limitations Soft Tissue Tightness,Bony Restriction PT-OP-M Strength Start: 02/20/23 16:04 Freq: Status: Active Protocol: Document 02/20/23 16:55 ED (Rec: 02/20/23 17:09 ED [id number]) Knee Strength Knee Manual Muscle Testing Right Flexion (S2) 4 Good Extension (L3) 4 Good Left Flexion (S2) 4 Good Extension (L3) 4- Good- PT-OP-Q Treatments Start: 02/20/23 16:04 Freq: Status: Active Protocol: Document 02/26/23 15:43 ED (Rec: 02/26/23 15:49 ED [id number]) Cardio Equipment Elliptical Duration (Minutes) 8 Therapeutic Exercises Supine Exercises leg press Supine Exercise Name unilateral leg press Resistance 50-75# Reps/Minutes [id number] Sitting Exercises lumbar flexion Sitting Exercise Name physio ball lumbar flexion Reps/Minutes 2x20 knee extension Sitting Exercise Name knee extension Resistance L2 Reps/Minutes [id number] Therapeutic Activity Therapeutic Activity squat Name sit to stand Reps/Minutes 5x5 Comments normal staggered 3x5 L LE closer PT-OP-T Assessment and Plan Start: 02/20/23 16:04 Freq: Status: Active Protocol: Document 02/26/23 15:43 ED (Rec: 02/26/23 15:49 ED [id number]) Physical Therapy Assessment Goals % improvement Impairment % improvement Short Term Goal (STG) pt will report 15% improvement in functional mobility.. STG Duration 3 weeks [employer] Goal (LTG) Pt will report 30% improvement in functional mobility. LTG Duration 6-8 weeks 30'' STS Impairment 30 second STS Short Term Goal (STG) Pt will improve 30 second STS score by 5 repetitions to a score of 11 repetitions. STG Duration 3 weeks Intermediate Goal (LTG) Pt will improve 30 second STS score by 7 repetitions to a score of 13 repetitions. LTG Duration 6-8 weeks Oswestry Intermediate Goal (LTG) Pt will improve Oswestry score by > 10 points to a score of <4/50. LTG Duration 6-8 weeks HEP Impairment HEP Short Term Goal (STG) Pt will report performing HEP >3 days/week. STG Duration 3 weeks [employer] Goal (LTG) Pt will report performing HEP >3 days/week. LTG Duration 6-8 weeks Assessment Summary Assessment Pt repeated several exercises provided on HEP to ensure he was doing them appropriately which he was. Kept overall volume of strengthening exercises lower today d/t mitigate excessive muscle soreness. Will start incorporating more balance training in subsequent sessions. Physical Therapy Plan Frequency and Duration Frequency of Treatment 2x/Week Duration of treatment (weeks) 10 Plan of Care Start Date 02/20/23 Plan of Care End Date 05/21/23 Therapeutic Interventions Therapeutic Interventions Gait Training,Home Exercise Program,Joint Mobilizations, Manual Therapy,Neuromuscular Re-education,Orthotic/ Prosthetic Management,Patient/ Caregiver Education,Self-Care/ Home Management,Soft Tissue Mobilization,Taping, Therapeutic Activities, Therapeutic Exercises Modalities Biofeedback,Cold Pack/Ice Massage,Electric Stimulation, Hot Packs,Ultrasound Next Visit Focus/Plan Next Note Type Treatment Note Next Visit Plan elliptical? sit<>stand,PB flexion, unilateral leg press, unilateral knee extension, lateral band walks, unstable surface training (boat)
--- NOTE | 2023-02-28 11:24 | PT.OTN ---
Current Diagnoses Other chronic pain (02/28/23) Low back pain, unspecified (02/28/23) Physical Therapy Treatment Note PT-OP-A Visit Information Start: 02/20/23 16:04 Freq: Status: Active Protocol: Document 02/28/23 11:20 ED (Rec: 02/28/23 11:24 ED [id number]) Out-Patient Physical Therapy Visit Information Visit Information Visit Type Treatment Note Visit Note 08/02 Visit Start Time 10:40 Visit Stop Time 11:20 Total Visit Minutes 40 Visit Number 3 PT-OP-B Current Condition Start: 02/20/23 16:04 Freq: Status: Active Protocol: Document 02/20/23 16:55 ED (Rec: 02/20/23 17:09 ED [id number]) Current Condition History of Current Condition Onset Date chronic Current Complaints low back pain, R hip, L knee History of Current Condition Pt states that he has had 3 surgeries for his low back, a CHRISTOS, and a TKA. Some of these surgeries were done in the ' s. he states that he is worse in the PM in regards to functional mobility. Pain typically is between a 5-6/10 but occasionally can become an 7-8/10. He notes weakness in his L LE mostly in his knee extensors which may be d/t to his previous back injuries and surgeries. He is not using an AD currently. Patient states he has to use a sock aid and shoe horn to help him don socks/shoes d/t the lack of flexiblity in his low back. He goes to [employer] 2x/ week and has a full body routine that he follows. Treatment Goals Patient/Caregiver Goals Be able to get on/off his boat Be able to put shoes on without AD PT-OP-C Subjective Start: 02/20/23 16:04 Freq: Status: Active Protocol: Document 02/28/23 11:20 ED (Rec: 02/28/23 11:24 ED [id number]) OP-PT Subjective Patient Comments Patient Comments Pt denies any pain or soreness following first PT session. He has now started doing 10 reps of his HEP instead of 5. PT-OP-E Functional Tests Start: 02/20/23 16:04 Freq: Status: Active Protocol: Document 02/20/23 16:55 ED (Rec: 02/20/23 17:09 ED [id number]) Functional Tests 30 Second Sit to Stand Test Score 6 Comments 17'' surface; no UE assist PT-OP-K Range of Motion Start: 02/20/23 16:04 Freq: Status: Active Protocol: Document 02/20/23 16:55 ED (Rec: 02/20/23 17:09 ED [id number]) Lumbar Spine Range of Motion Lumbar Spine Active Testing Position Sitting Flexion 20 Extension 5 ROM Limitations Soft Tissue Tightness,Bony Restriction PT-OP-M Strength Start: 02/20/23 16:04 Freq: Status: Active Protocol: Document 02/20/23 16:55 ED (Rec: 02/20/23 17:09 ED [id number]) Knee Strength Knee Manual Muscle Testing Right Flexion (S2) 4 Good Extension (L3) 4 Good Left Flexion (S2) 4 Good Extension (L3) 4- Good- PT-OP-Q Treatments Start: 02/20/23 16:04 Freq: Status: Active Protocol: Document 02/28/23 11:20 ED (Rec: 02/28/23 11:24 ED [id number]) Cardio Equipment Elliptical Duration (Minutes) 8 Therapeutic Exercises Supine Exercises leg press Supine Exercise Name unilateral leg press Resistance 50-75# Reps/Minutes [id number] Sitting Exercises lumbar flexion Sitting Exercise Name physio ball lumbar flexion Reps/Minutes 3x20 knee extension Sitting Exercise Name knee extension Resistance L2 Reps/Minutes [id number] Therapeutic Activity Therapeutic Activity squat Name sit to stand Reps/Minutes 5x10 Comments normal 10# weight staggered 3x5 L LE closer Neuro Re-Education Treatment Balance Activities SL balance Reps/Duration x60 seconds Comments slight UE assist unable to hold >3 seconds dynamic balance Details tandem walk Reps/Duration 3x2 laps Comments B UE support on // bars wobble board Details mediolateral wobble board Reps/Duration 2x2 minutes PT-OP-T Assessment and Plan Start: 02/20/23 16:04 Freq: Status: Active Protocol: Document 02/28/23 11:20 ED (Rec: 02/28/23 11:24 ED [id number]) Physical Therapy Assessment Goals % improvement Impairment % improvement Short Term Goal (STG) pt will report 15% improvement in functional mobility.. STG Duration 3 weeks Longterm Goal (LTG) Pt will report 30% improvement in functional mobility. LTG Duration 6-8 weeks 30'' STS Impairment 30 second STS Short Term Goal (STG) Pt will improve 30 second STS score by 5 repetitions to a score of 11 repetitions. STG Duration 3 weeks Auto Rental Clerk Goal (LTG) Pt will improve 30 second STS score by 7 repetitions to a score of 13 repetitions. LTG Duration 6-8 weeks Oswestry Longterm Goal (LTG) Pt will improve Oswestry score by > 10 points to a score of <4/50. LTG Duration 6-8 weeks HEP Impairment HEP Short Term Goal (STG) Pt will report performing HEP >3 days/week. STG Duration 3 weeks Auto Rental Clerk Goal (LTG) Pt will report performing HEP >3 days/week. LTG Duration 6-8 weeks Assessment Summary Assessment Pt did well with treatment today which focused on low back ROM and LE strengthening. Pt demonstrates reduced strength and stability on L LE likely secondary to previous back injuries and surgeries. Physical Therapy Plan Frequency and Duration Frequency of Treatment 2x/Week Duration of treatment (weeks) 10 Plan of Care Start Date 02/20/23 Plan of Care End Date 05/21/23 Therapeutic Interventions Therapeutic Interventions Gait Training,Home Exercise Program,Joint Mobilizations, Manual Therapy,Neuromuscular Re-education,Orthotic/ Prosthetic Management,Patient/ Caregiver Education,Self-Care/ Home Management,Soft Tissue Mobilization,Taping, Therapeutic Activities, Therapeutic Exercises Modalities Biofeedback,Cold Pack/Ice Massage,Electric Stimulation, Hot Packs,Ultrasound Next Visit Focus/Plan Next Note Type Treatment Note Next Visit Plan elliptical? sit<>stand,PB flexion, unilateral leg press, unilateral knee extension, lateral band walks, unstable surface training (boat)
--- NOTE | 2023-03-04 12:12 | PT.OTN ---
Current Diagnoses Other chronic pain (03/04/23) Low back pain, unspecified (03/04/23) Physical Therapy Treatment Note PT-OP-A Visit Information Start: 02/20/23 16:04 Freq: Status: Active Protocol: Document 03/04/23 12:08 ED (Rec: 03/04/23 12:12 ED [id number]) Out-Patient Physical Therapy Visit Information Visit Information Visit Type Treatment Note Visit Note 09/02 Visit Start Time 11:30 Visit Stop Time 12:10 Total Visit Minutes 40 Visit Number 4 PT-OP-B Current Condition Start: 02/20/23 16:04 Freq: Status: Active Protocol: Document 02/20/23 16:55 ED (Rec: 02/20/23 17:09 ED [id number]) Current Condition History of Current Condition Onset Date chronic Current Complaints low back pain, R hip, L knee History of Current Condition Pt states that he has had 3 surgeries for his low back, a CHRISTOS, and a TKA. Some of these surgeries were done in the ' s. he states that he is worse in the PM in regards to functional mobility. Pain typically is between a 5-6/10 but occasionally can become an 7-8/10. He notes weakness in his L LE mostly in his knee extensors which may be d/t to his previous back injuries and surgeries. He is not using an AD currently. Patient states he has to use a sock aid and shoe horn to help him don socks/shoes d/t the lack of flexiblity in his low back. He goes to [employer] 2x/ week and has a full body routine that he follows. Treatment Goals Patient/Caregiver Goals Be able to get on/off his boat Be able to put shoes on without AD PT-OP-C Subjective Start: 02/20/23 16:04 Freq: Status: Active Protocol: Document 03/04/23 12:08 ED (Rec: 03/04/23 12:12 ED [id number]) OP-PT Subjective Patient Comments Patient Comments Pt states that his L LE strength is improving and feels more normal with his R. Continues to state that the evenings are much different for him compared to the mornings in regards to pain , strength, and activity tolerance. PT-OP-E Functional Tests Start: 02/20/23 16:04 Freq: Status: Active Protocol: Document 02/20/23 16:55 ED (Rec: 02/20/23 17:09 ED [id number]) Functional Tests 30 Second Sit to Stand Test Score 6 Comments 17'' surface; no UE assist PT-OP-K Range of Motion Start: 02/20/23 16:04 Freq: Status: Active Protocol: Document 02/20/23 16:55 ED (Rec: 02/20/23 17:09 ED [id number]) Lumbar Spine Range of Motion Lumbar Spine Active Testing Position Sitting Flexion 20 Extension 5 ROM Limitations Soft Tissue Tightness,Bony Restriction PT-OP-M Strength Start: 02/20/23 16:04 Freq: Status: Active Protocol: Document 02/20/23 16:55 ED (Rec: 02/20/23 17:09 ED [id number]) Knee Strength Knee Manual Muscle Testing Right Flexion (S2) 4 Good Extension (L3) 4 Good Left Flexion (S2) 4 Good Extension (L3) 4- Good- PT-OP-Q Treatments Start: 02/20/23 16:04 Freq: Status: Active Protocol: Document 03/04/23 12:08 ED (Rec: 03/04/23 12:12 ED [id number]) Cardio Equipment Elliptical Duration (Minutes) 8 Therapeutic Exercises Supine Exercises leg press Supine Exercise Name unilateral leg press Resistance 50-75# Reps/Minutes [id number] Sitting Exercises lumbar flexion Sitting Exercise Name physio ball lumbar flexion Reps/Minutes 3x20 knee extension Sitting Exercise Name knee extension Resistance L2 Reps/Minutes [id number] Therapeutic Activity Therapeutic Activity step up Name step up Reps/Minutes 2x10/leg Comments 8'' with UE support squat Name sit to stand Reps/Minutes 5x10 Comments normal 10# weight staggered 3x5 L LE closer Neuro Re-Education Treatment Balance Activities SL balance Reps/Duration x60 seconds Comments slight UE assist unable to hold >3 seconds dynamic balance Details marching walk Reps/Duration 3x20 feet PT-OP-T Assessment and Plan Start: 02/20/23 16:04 Freq: Status: Active Protocol: Document 03/04/23 12:08 ED (Rec: 03/04/23 12:12 ED [id number]) Physical Therapy Assessment Goals % improvement Impairment % improvement Short Term Goal (STG) pt will report 15% improvement in functional mobility.. STG Duration 3 weeks [employer] Physical Education Teacher Goal (LTG) Pt will report 30% improvement in functional mobility. LTG Duration 6-8 weeks 30'' STS Impairment 30 second STS Short Term Goal (STG) Pt will improve 30 second STS score by 5 repetitions to a score of 11 repetitions. STG Duration 3 weeks Alf Goal (LTG) Pt will improve 30 second STS score by 7 repetitions to a score of 13 repetitions. LTG Duration 6-8 weeks Oswestry Alf Goal (LTG) Pt will improve Oswestry score by > 10 points to a score of <4/50. LTG Duration 6-8 weeks HEP Impairment HEP Short Term Goal (STG) Pt will report performing HEP >3 days/week. STG Duration 3 weeks [employer] Physical Education Teacher Goal (LTG) Pt will report performing HEP >3 days/week. LTG Duration 6-8 weeks Assessment Summary Assessment Pt demonstrated improved L knee extensor strength. However, he does have noticeable deficit in L LE balance; he was able to maintain static SL balance on his R LE for 10 seconds but unable to do the same with the L LE. PT provided HEP of single leg balance and marching walk for home. Physical Therapy Plan Frequency and Duration Frequency of Treatment 2x/Week Duration of treatment (weeks) 10 Plan of Care Start Date 02/20/23 Plan of Care End Date 05/21/23 Therapeutic Interventions Therapeutic Interventions Gait Training,Home Exercise Program,Joint Mobilizations, Manual Therapy,Neuromuscular Re-education,Orthotic/ Prosthetic Management,Patient/ Caregiver Education,Self-Care/ Home Management,Soft Tissue Mobilization,Taping, Therapeutic Activities, Therapeutic Exercises Modalities Biofeedback,Cold Pack/Ice Massage,Electric Stimulation, Hot Packs,Ultrasound Next Visit Focus/Plan Next Note Type Treatment Note Next Visit Plan elliptical? sit<>stand,PB flexion, unilateral leg press, unilateral knee extension, lateral band walks, unstable surface training (boat)
--- NOTE | 2023-03-06 13:05 | PT.OTN ---
Current Diagnoses Other chronic pain (03/06/23) Low back pain, unspecified (03/06/23) Physical Therapy Treatment Note PT-OP-A Visit Information Start: 02/20/23 16:04 Freq: Status: Active Protocol: Document 03/06/23 13:00 ED (Rec: 03/06/23 13:05 ED [id number]) Out-Patient Physical Therapy Visit Information Visit Information Visit Type Treatment Note Visit Note 10/02 Visit Start Time 11:30 Visit Stop Time 12:10 Total Visit Minutes 40 Visit Number 5 PT-OP-B Current Condition Start: 02/20/23 16:04 Freq: Status: Active Protocol: Document 02/20/23 16:55 ED (Rec: 02/20/23 17:09 ED [id number]) Current Condition History of Current Condition Onset Date chronic Current Complaints low back pain, R hip, L knee History of Current Condition Pt states that he has had 3 surgeries for his low back, a CHRISTOS, and a TKA. Some of these surgeries were done in the ' s. he states that he is worse in the PM in regards to functional mobility. Pain typically is between a 5-6/10 but occasionally can become an 7-8/10. He notes weakness in his L LE mostly in his knee extensors which may be d/t to his previous back injuries and surgeries. He is not using an AD currently. Patient states he has to use a sock aid and shoe horn to help him don socks/shoes d/t the lack of flexiblity in his low back. He goes to [employer] 2x/ week and has a full body routine that he follows. Treatment Goals Patient/Caregiver Goals Be able to get on/off his boat Be able to put shoes on without AD PT-OP-C Subjective Start: 02/20/23 16:04 Freq: Status: Active Protocol: Document 03/06/23 13:00 ED (Rec: 03/06/23 13:05 ED [id number]) OP-PT Subjective Patient Comments Patient Comments Pt states that he is a little more sore today. His R knee has been more irritated so he was unable to perform squats at home. PT-OP-E Functional Tests Start: 02/20/23 16:04 Freq: Status: Active Protocol: Document 02/20/23 16:55 ED (Rec: 02/20/23 17:09 ED [id number]) Functional Tests 30 Second Sit to Stand Test Score 6 Comments 17'' surface; no UE assist PT-OP-K Range of Motion Start: 02/20/23 16:04 Freq: Status: Active Protocol: Document 02/20/23 16:55 ED (Rec: 02/20/23 17:09 ED [id number]) Lumbar Spine Range of Motion Lumbar Spine Active Testing Position Sitting Flexion 20 Extension 5 ROM Limitations Soft Tissue Tightness,Bony Restriction PT-OP-M Strength Start: 02/20/23 16:04 Freq: Status: Active Protocol: Document 02/20/23 16:55 ED (Rec: 02/20/23 17:09 ED [id number]) Knee Strength Knee Manual Muscle Testing Right Flexion (S2) 4 Good Extension (L3) 4 Good Left Flexion (S2) 4 Good Extension (L3) 4- Good- PT-OP-Q Treatments Start: 02/20/23 16:04 Freq: Status: Active Protocol: Document 03/06/23 13:00 ED (Rec: 03/06/23 13:05 ED [id number]) Cardio Equipment Elliptical Duration (Minutes) 8 Recumbent Bicycle Duration (Minutes) 8 Therapeutic Exercises Sitting Exercises lumbar flexion Sitting Exercise Name physio ball lumbar flexion Reps/Minutes 3x20 knee extension Sitting Exercise Name knee extension Resistance L2 Reps/Minutes 1v59-01 Other Exercises banded walk Resistance turquoise band Equipment Used mini loop band Reps/Minutes 2x10 feet Therapeutic Activity Therapeutic Activity hip hinge Name small PB RDL Reps/Minutes 2x10 squat Name sit to stand Reps/Minutes 5x10 Comments staggered 3x5 L LE closer PT-OP-T Assessment and Plan Start: 02/20/23 16:04 Freq: Status: Active Protocol: Document 03/06/23 13:00 ED (Rec: 03/06/23 13:05 ED [id number]) Physical Therapy Assessment Goals % improvement Impairment % improvement Short Term Goal (STG) pt will report 15% improvement in functional mobility.. STG Duration 3 weeks Penitentiary Goal (LTG) Pt will report 30% improvement in functional mobility. LTG Duration 6-8 weeks 30'' STS Impairment 30 second STS Short Term Goal (STG) Pt will improve 30 second STS score by 5 repetitions to a score of 11 repetitions. STG Duration 3 weeks Inspector Sheet Metal Parts Goal (LTG) Pt will improve 30 second STS score by 7 repetitions to a score of 13 repetitions. LTG Duration 6-8 weeks Oswestry [facility]iary Goal (LTG) Pt will improve Oswestry score by > 10 points to a score of <4/50. LTG Duration 6-8 weeks HEP Impairment HEP Short Term Goal (STG) Pt will report performing HEP >3 days/week. STG Duration 3 weeks Inspector Sheet Metal Parts Goal (LTG) Pt will report performing HEP >3 days/week. LTG Duration 6-8 weeks Assessment Summary Assessment Pt performed full body movements today all within patient tolerance d/t increased R knee and back pain . Pt performed reduced ROM RDLs, squats, sitting and standing lumbar flexion in addition to banded walks. No pain noted during movements today. He is going to see if the bands he has at home still work so he can do banded walks at home. Physical Therapy Plan Frequency and Duration Frequency of Treatment 2x/Week Duration of treatment (weeks) 10 Plan of Care Start Date 02/20/23 Plan of Care End Date 05/21/23 Therapeutic Interventions Therapeutic Interventions Gait Training,Home Exercise Program,Joint Mobilizations, Manual Therapy,Neuromuscular Re-education,Orthotic/ Prosthetic Management,Patient/ Caregiver Education,Self-Care/ Home Management,Soft Tissue Mobilization,Taping, Therapeutic Activities, Therapeutic Exercises Modalities Biofeedback,Cold Pack/Ice Massage,Electric Stimulation, Hot Packs,Ultrasound Next Visit Focus/Plan Next Note Type Treatment Note Next Visit Plan elliptical? sit<>stand,PB flexion, unilateral leg press, unilateral knee extension, lateral band walks, unstable surface training (boat)
--- NOTE | 2023-03-12 14:16 | PT.OTN ---
Current Diagnoses Other chronic pain (03/12/23) Low back pain, unspecified (03/12/23) Physical Therapy Treatment Note PT-OP-A Visit Information Start: 02/20/23 16:04 Freq: Status: Active Protocol: Document 03/12/23 14:12 ED (Rec: 03/12/23 14:16 ED [id number]) Out-Patient Physical Therapy Visit Information Visit Information Visit Type Treatment Note Visit Note 11/02 Visit Start Time 13:30 Visit Stop Time 14:10 Total Visit Minutes 40 Visit Number 6 PT-OP-B Current Condition Start: 02/20/23 16:04 Freq: Status: Active Protocol: Document 02/20/23 16:55 ED (Rec: 02/20/23 17:09 ED [id number]) Current Condition History of Current Condition Onset Date chronic Current Complaints low back pain, R hip, L knee History of Current Condition Pt states that he has had 3 surgeries for his low back, a CHRISTOS, and a TKA. Some of these surgeries were done in the s. he states that he is worse in the PM in regards to functional mobility. Pain typically is between a 5-6/10 but occasionally can become an 7-8/10. He notes weakness in his L LE mostly in his knee extensors which may be d/t to his previous back injuries and surgeries. He is not using an AD currently. Patient states he has to use a sock aid and shoe horn to help him don socks/shoes d/t the lack of flexiblity in his low back. He goes to [employer] 2x/ week and has a full body routine that he follows. Treatment Goals Patient/Caregiver Goals Be able to get on/off his boat Be able to put shoes on without AD PT-OP-C Subjective Start: 02/20/23 16:04 Freq: Status: Active Protocol: Document 03/12/23 14:12 ED (Rec: 03/12/23 14:16 ED [id number]) OP-PT Subjective Patient Comments Patient Comments Pt states his R knee is feeling better today than it did last week. Notes that his pain in his back is always bad at night and impacts his sleep. PT-OP-E Functional Tests Start: 02/20/23 16:04 Freq: Status: Active Protocol: Document 02/20/23 16:55 ED (Rec: 02/20/23 17:09 ED [id number]) Functional Tests 30 Second Sit to Stand Test Score 6 Comments 17'' surface; no UE assist PT-OP-K Range of Motion Start: 02/20/23 16:04 Freq: Status: Active Protocol: Document 02/20/23 16:55 ED (Rec: 02/20/23 17:09 ED [id number]) Lumbar Spine Range of Motion Lumbar Spine Active Testing Position Sitting Flexion 20 Extension 5 ROM Limitations Soft Tissue Tightness,Bony Restriction PT-OP-M Strength Start: 02/20/23 16:04 Freq: Status: Active Protocol: Document 02/20/23 16:55 ED (Rec: 02/20/23 17:09 ED [id number]) Knee Strength Knee Manual Muscle Testing Right Flexion (S2) 4 Good Extension (L3) 4 Good Left Flexion (S2) 4 Good Extension (L3) 4- Good- PT-OP-Q Treatments Start: 02/20/23 16:04 Freq: Status: Active Protocol: Document 03/12/23 14:12 ED (Rec: 03/12/23 14:16 ED [id number]) Cardio Equipment Elliptical Duration (Minutes) 8 Therapeutic Exercises Supine Exercises banded hip flexion Resistance yllw loop band Reps/Minutes 1x10/leg LTR Reps/Minutes 2x20 hip bridge Reps/Minutes 3x10 Sitting Exercises lumbar flexion Sitting Exercise Name physio ball lumbar flexion Reps/Minutes 3x20 Other Exercises banded walk Resistance turquoise band Equipment Used mini loop band Reps/Minutes 2x10 feet Therapeutic Activity Therapeutic Activity hip hinge Name RDL Reps/Minutes 2x10 Comments 10# squat Name sit to stand Reps/Minutes 5x10 Comments staggered 3x5 L LE closer PT-OP-T Assessment and Plan Start: 02/20/23 16:04 Freq: Status: Active Protocol: Document 03/12/23 14:12 ED (Rec: 03/12/23 14:16 ED [id number]) Physical Therapy Assessment Goals % improvement Impairment % improvement Short Term Goal (STG) pt will report 15% improvement in functional mobility.. STG Duration 3 weeks Fdc Goal (LTG) Pt will report 30% improvement in functional mobility. LTG Duration 6-8 weeks 30'' STS Impairment 30 second STS Short Term Goal (STG) Pt will improve 30 second STS score by 5 repetitions to a score of 11 repetitions. STG Duration 3 weeks Fdc Goal (LTG) Pt will improve 30 second STS score by 7 repetitions to a score of 13 repetitions. LTG Duration 6-8 weeks Oswestry Lead Generation Representative Goal (LTG) Pt will improve Oswestry score by > 10 points to a score of <4/50. LTG Duration 6-8 weeks HEP Impairment HEP Short Term Goal (STG) Pt will report performing HEP >3 days/week. STG Duration 3 weeks Lead Generation Representative Goal (LTG) Pt will report performing HEP >3 days/week. LTG Duration 6-8 weeks Assessment Summary Assessment Pt performed full body movements today all within patient tolerance. Added supine resisted hip flexion and weighted deadlifts today which he was able to perform comfortably. Is demonstrating improved L LE strength as demonstrated during staggered sit<>stands. Physical Therapy Plan Frequency and Duration Frequency of Treatment 2x/Week Duration of treatment (weeks) 10 Plan of Care Start Date 02/20/23 Plan of Care End Date 05/21/23 Therapeutic Interventions Therapeutic Interventions Gait Training,Home Exercise Program,Joint Mobilizations, Manual Therapy,Neuromuscular Re-education,Orthotic/ Prosthetic Management,Patient/ Caregiver Education,Self-Care/ Home Management,Soft Tissue Mobilization,Taping, Therapeutic Activities, Therapeutic Exercises Modalities Biofeedback,Cold Pack/Ice Massage,Electric Stimulation, Hot Packs,Ultrasound Next Visit Focus/Plan Next Note Type Treatment Note Next Visit Plan elliptical? sit<>stand,PB flexion, unilateral leg press, unilateral knee extension, lateral band walks, unstable surface training (boat)
--- NOTE | 2023-03-14 12:18 | PT.OTN ---
Current Diagnoses Other chronic pain (03/14/23) Low back pain, unspecified (03/14/23) Physical Therapy Treatment Note PT-OP-A Visit Information Start: 02/20/23 16:04 Freq: Status: Active Protocol: Document 03/14/23 12:15 ED (Rec: 03/14/23 12:18 ED [id number]) Out-Patient Physical Therapy Visit Information Visit Information Visit Type Treatment Note Visit Note 12/02 Visit Start Time 11:30 Visit Stop Time 12:15 Total Visit Minutes 45 Visit Number 7 PT-OP-B Current Condition Start: 02/20/23 16:04 Freq: Status: Active Protocol: Document 02/20/23 16:55 ED (Rec: 02/20/23 17:09 ED [id number]) Current Condition History of Current Condition Onset Date chronic Current Complaints low back pain, R hip, L knee History of Current Condition Pt states that he has had 3 surgeries for his low back, a CHRISTOS, and a TKA. Some of these surgeries were done in the ' s. he states that he is worse in the PM in regards to functional mobility. Pain typically is between a 5-6/10 but occasionally can become an 7-8/10. He notes weakness in his L LE mostly in his knee extensors which may be d/t to his previous back injuries and surgeries. He is not using an AD currently. Patient states he has to use a sock aid and shoe horn to help him don socks/shoes d/t the lack of flexiblity in his low back. He goes to [employer] 2x/ week and has a full body routine that he follows. Treatment Goals Patient/Caregiver Goals Be able to get on/off his boat Be able to put shoes on without AD PT-OP-C Subjective Start: 02/20/23 16:04 Freq: Status: Active Protocol: Document 03/14/23 12:15 ED (Rec: 03/14/23 12:18 ED [id number]) OP-PT Subjective Patient Comments Patient Comments Pt states that his pain is relatively unchanged by he is finding he is moving better and noticing decreased effort throughout the day. PT-OP-E Functional Tests Start: 02/20/23 16:04 Freq: Status: Active Protocol: Document 02/20/23 16:55 ED (Rec: 02/20/23 17:09 ED [id number]) Functional Tests 30 Second Sit to Stand Test Score 6 Comments 17'' surface; no UE assist PT-OP-K Range of Motion Start: 02/20/23 16:04 Freq: Status: Active Protocol: Document 02/20/23 16:55 ED (Rec: 02/20/23 17:09 ED [id number]) Lumbar Spine Range of Motion Lumbar Spine Active Testing Position Sitting Flexion 20 Extension 5 ROM Limitations Soft Tissue Tightness,Bony Restriction PT-OP-M Strength Start: 02/20/23 16:04 Freq: Status: Active Protocol: Document 02/20/23 16:55 ED (Rec: 02/20/23 17:09 ED [id number]) Knee Strength Knee Manual Muscle Testing Right Flexion (S2) 4 Good Extension (L3) 4 Good Left Flexion (S2) 4 Good Extension (L3) 4- Good- PT-OP-Q Treatments Start: 02/20/23 16:04 Freq: Status: Active Protocol: Document 03/14/23 12:15 ED (Rec: 03/14/23 12:18 ED [id number]) Cardio Equipment Elliptical Duration (Minutes) 8 Resistance 4 Therapeutic Exercises Sitting Exercises lumbar flexion Sitting Exercise Name physio ball lumbar flexion Reps/Minutes 3x20 Standing Exercises row Standing Exercise Name bent over cable row Resistance L3 Equipment Used cable column Reps/Minutes 3x10 Comments unilateral Therapeutic Activity Therapeutic Activity squat Name sit to stand Reps/Minutes 5x10 Comments staggered 3x5 L LE closer Neuro Re-Education Treatment Balance Activities dynamic balance Details marching walk Reps/Duration 3x20' wobble board Details fwd/bkwd; mediolateral Equipment wobbble board Reps/Duration 2x1' PT-OP-T Assessment and Plan Start: 02/20/23 16:04 Freq: Status: Active Protocol: Document 03/14/23 12:15 ED (Rec: 03/14/23 12:18 ED [id number]) Physical Therapy Assessment Goals % improvement Impairment % improvement Short Term Goal (STG) pt will report 15% improvement in functional mobility.. STG Duration 3 weeks Manager Garden Goal (LTG) Pt will report 30% improvement in functional mobility. LTG Duration 6-8 weeks 30'' STS Impairment 30 second STS Short Term Goal (STG) Pt will improve 30 second STS score by 5 repetitions to a score of 11 repetitions. STG Duration 3 weeks Manager Garden Goal (LTG) Pt will improve 30 second STS score by 7 repetitions to a score of 13 repetitions. LTG Duration 6-8 weeks Oswestry Manager Garden Goal (LTG) Pt will improve Oswestry score by > 10 points to a score of <4/50. LTG Duration 6-8 weeks HEP Impairment HEP Short Term Goal (STG) Pt will report performing HEP >3 days/week. STG Duration 3 weeks Manager Garden Goal (LTG) Pt will report performing HEP >3 days/week. LTG Duration 6-8 weeks Assessment Summary Assessment Pt performed full body movements today all within patient tolerance. Worked on squats, rows, and balance training. Physical Therapy Plan Frequency and Duration Frequency of Treatment 2x/Week Duration of treatment (weeks) 10 Plan of Care Start Date 02/20/23 Plan of Care End Date 05/21/23 Therapeutic Interventions Therapeutic Interventions Gait Training,Home Exercise Program,Joint Mobilizations, Manual Therapy,Neuromuscular Re-education,Orthotic/ Prosthetic Management,Patient/ Caregiver Education,Self-Care/ Home Management,Soft Tissue Mobilization,Taping, Therapeutic Activities, Therapeutic Exercises Modalities Biofeedback,Cold Pack/Ice Massage,Electric Stimulation, Hot Packs,Ultrasound Next Visit Focus/Plan Next Note Type Treatment Note Next Visit Plan elliptical? sit<>stand,PB flexion, unilateral leg press, unilateral knee extension, lateral band walks, unstable surface training (boat)
--- NOTE | 2023-03-19 14:13 | PT.OTN ---
Current Diagnoses Other chronic pain (03/19/23) Low back pain, unspecified (03/19/23) Physical Therapy Treatment Note PT-OP-A Visit Information Start: 02/20/23 16:04 Freq: Status: Active Protocol: Document 03/19/23 14:06 ED (Rec: 03/19/23 14:13 ED [id number]) Out-Patient Physical Therapy Visit Information Visit Information Visit Type Treatment Note Visit Note 01/02 Visit Start Time 13:30 Visit Stop Time 12:10 Total Visit Minutes 40 Visit Number 8 PT-OP-B Current Condition Start: 02/20/23 16:04 Freq: Status: Active Protocol: Document 02/20/23 16:55 ED (Rec: 02/20/23 17:09 ED [id number]) Current Condition History of Current Condition Onset Date chronic Current Complaints low back pain, R hip, L knee History of Current Condition Pt states that he has had 3 surgeries for his low back, a CHRISTOS, and a TKA. Some of these surgeries were done in the ' s. he states that he is worse in the PM in regards to functional mobility. Pain typically is between a 5-6/10 but occasionally can become an 7-8/10. He notes weakness in his L LE mostly in his knee extensors which may be d/t to his previous back injuries and surgeries. He is not using an AD currently. Patient states he has to use a sock aid and shoe horn to help him don socks/shoes d/t the lack of flexiblity in his low back. He goes to [employer] 2x/ week and has a full body routine that he follows. Treatment Goals Patient/Caregiver Goals Be able to get on/off his boat Be able to put shoes on without AD PT-OP-C Subjective Start: 02/20/23 16:04 Freq: Status: Active Protocol: Document 03/19/23 14:06 ED (Rec: 03/19/23 14:13 ED [id number]) OP-PT Subjective Patient Comments Patient Comments Pt reiterates that his strength and flexibility are much better now but his pain is unchanged. Continues to have low back pain accompanied with L hip and R knee pain. Takes Vicodin regularly to help with pain. PT-OP-E Functional Tests Start: 02/20/23 16:04 Freq: Status: Active Protocol: Document 02/20/23 16:55 ED (Rec: 02/20/23 17:09 ED [id number]) Functional Tests 30 Second Sit to Stand Test Score 6 Comments 17'' surface; no UE assist PT-OP-K Range of Motion Start: 02/20/23 16:04 Freq: Status: Active Protocol: Document 02/20/23 16:55 ED (Rec: 02/20/23 17:09 ED [id number]) Lumbar Spine Range of Motion Lumbar Spine Active Testing Position Sitting Flexion 20 Extension 5 ROM Limitations Soft Tissue Tightness,Bony Restriction PT-OP-M Strength Start: 02/20/23 16:04 Freq: Status: Active Protocol: Document 02/20/23 16:55 ED (Rec: 02/20/23 17:09 ED [id number]) Knee Strength Knee Manual Muscle Testing Right Flexion (S2) 4 Good Extension (L3) 4 Good Left Flexion (S2) 4 Good Extension (L3) 4- Good- PT-OP-Q Treatments Start: 02/20/23 16:04 Freq: Status: Active Protocol: Document 03/19/23 14:06 ED (Rec: 03/19/23 14:13 ED [id number]) Cardio Equipment Elliptical Duration (Minutes) 8 Resistance 4 Therapeutic Exercises Sidelying Exercises open book Reps/Minutes x10 Comments cued to go within tolerable range Sitting Exercises quad stretch Sitting Exercise Name std quad stretch Reps/Minutes 1x30 seconds each leg lumbar flexion Sitting Exercise Name physio ball lumbar flexion Reps/Minutes 3x20 Standing Exercises hip flexion Standing Exercise Name banded hip flexion Resistance yellow Equipment Used loop band Reps/Minutes 1x10/leg Therapeutic Activity Therapeutic Activity hip hinge Name B stance RDL Reps/Minutes 2x10 Comments small physioball L anterior hip pain squat Name STS Reps/Minutes x30 seconds Comments 15 Neuro Re-Education Treatment Balance Activities dynamic balance Details marching walk Reps/Duration 3x20' PT-OP-T Assessment and Plan Start: 02/20/23 16:04 Freq: Status: Active Protocol: Document 03/19/23 14:06 ED (Rec: 03/19/23 14:13 ED [id number]) Physical Therapy Assessment Goals % improvement Impairment % improvement Short Term Goal (STG) pt will report 15% improvement in functional mobility.. STG Duration 3 weeks Skilled Nursing Goal (LTG) Pt will report 30% improvement in functional mobility. LTG Duration 6-8 weeks 30'' STS Impairment 30 second STS Short Term Goal (STG) Pt will improve 30 second STS score by 5 repetitions to a score of 11 repetitions. STG Duration 3 weeks -MET Scientific Process Operator Goal (LTG) Pt will improve 30 second STS score by 7 repetitions to a score of 13 repetitions. LTG Duration 6-8 weeks -MET Oswestry Impairment IE: 14/50 Skilled Nursing Goal (LTG) Pt will improve Oswestry score by > 10 points to a score of <4/50. LTG Duration 6-8 weeks HEP Impairment HEP Short Term Goal (STG) Pt will report performing HEP >3 days/week. STG Duration 3 weeks Skilled Nursing Goal (LTG) Pt will report performing HEP >3 days/week. LTG Duration 6-8 weeks Assessment Summary Assessment Pt continues to demonstrate L LE strength and balance deficits. Unable to maintain SL balance on L LE for >3 seconds at this time. Pain often felt in anterior hip. Pt reports improved overall strength but no improvements in pain with PT. Physical Therapy Plan Frequency and Duration Frequency of Treatment 2x/Week Duration of treatment (weeks) 10 Plan of Care Start Date 02/20/23 Plan of Care End Date 05/21/23 Therapeutic Interventions Therapeutic Interventions Gait Training,Home Exercise Program,Joint Mobilizations, Manual Therapy,Neuromuscular Re-education,Orthotic/ Prosthetic Management,Patient/ Caregiver Education,Self-Care/ Home Management,Soft Tissue Mobilization,Taping, Therapeutic Activities, Therapeutic Exercises Modalities Biofeedback,Cold Pack/Ice Massage,Electric Stimulation, Hot Packs,Ultrasound Next Visit Focus/Plan Next Note Type Progress Note Next Visit Plan Oswestry (14 50 = 28.0 %); update 30 STS (7>15) elliptical? sit<>stand,PB flexion, unilateral leg press, unilateral knee extension, lateral band walks, unstable surface training (boat)
--- NOTE | 2023-03-21 11:29 | PT.OTN ---
Current Diagnoses Other chronic pain (03/21/23) Low back pain, unspecified (03/21/23) Physical Therapy Treatment Note PT-OP-A Visit Information Start: 02/20/23 16:04 Freq: Status: Active Protocol: Document 03/21/23 11:23 ED (Rec: 03/21/23 11:29 ED [id number]) Out-Patient Physical Therapy Visit Information Visit Information Visit Type Progress Note Visit Note 02/02 Visit Start Time 10:40 Visit Stop Time 11:25 Total Visit Minutes 45 Visit Number 9 PT-OP-B Current Condition Start: 02/20/23 16:04 Freq: Status: Active Protocol: Document 02/20/23 16:55 ED (Rec: 02/20/23 17:09 ED [id number]) Current Condition History of Current Condition Onset Date chronic Current Complaints low back pain, R hip, L knee History of Current Condition Pt states that he has had 3 surgeries for his low back, a CHRISTOS, and a TKA. Some of these surgeries were done in the s. he states that he is worse in the PM in regards to functional mobility. Pain typically is between a 5-6/10 but occasionally can become an 7-8/10. He notes weakness in his L LE mostly in his knee extensors which may be d/t to his previous back injuries and surgeries. He is not using an AD currently. Patient states he has to use a sock aid and shoe horn to help him don socks/shoes d/t the lack of flexiblity in his low back. He goes to [employer] 2x/ week and has a full body routine that he follows. Treatment Goals Patient/Caregiver Goals Be able to get on/off his boat Be able to put shoes on without AD PT-OP-C Subjective Start: 02/20/23 16:04 Freq: Status: Active Protocol: Document 03/21/23 11:23 ED (Rec: 03/21/23 11:29 ED [id number]) OP-PT Subjective Patient Comments Patient Comments Pt states that he is able to bend over better and feels like his overall flexibility, strength, and balance are improved. However, he denies any improvements in pain of his low back, hip, or knee. States he will see a pain specialist for more follow up regarding pain. Patient Questionnaires Oswestry Low Back Index Oswestry Score 50 = 32.0 % Oswestry Impairment 20 to 39% Impaired (Score 20- 39) PT-OP-E Functional Tests Start: 02/20/23 16:04 Freq: Status: Active Protocol: Document 03/21/23 11:23 ED (Rec: 03/21/23 11:29 ED [id number]) Functional Tests 30 Second Sit to Stand Test Score 15 Comments IE: 6 PT-OP-K Range of Motion Start: 02/20/23 16:04 Freq: Status: Active Protocol: Document 02/20/23 16:55 ED (Rec: 02/20/23 17:09 ED [id number]) Lumbar Spine Range of Motion Lumbar Spine Active Testing Position Sitting Flexion 20 Extension 5 ROM Limitations Soft Tissue Tightness,Bony Restriction PT-OP-M Strength Start: 02/20/23 16:04 Freq: Status: Active Protocol: Document 02/20/23 16:55 ED (Rec: 02/20/23 17:09 ED [id number]) Knee Strength Knee Manual Muscle Testing Right Flexion (S2) 4 Good Extension (L3) 4 Good Left Flexion (S2) 4 Good Extension (L3) 4- Good- PT-OP-Q Treatments Start: 02/20/23 16:04 Freq: Status: Active Protocol: Document 03/21/23 11:23 ED (Rec: 03/21/23 11:29 ED [id number]) Cardio Equipment Elliptical Duration (Minutes) 8 Resistance 4 Therapeutic Exercises Supine Exercises leg press Supine Exercise Name uni le gpress Resistance 50# Reps/Minutes 3x10/leg Sitting Exercises lumbar flexion Sitting Exercise Name physio ball lumbar flexion Reps/Minutes 3x20 knee extension Sitting Exercise Name LAQ Resistance L4 Equipment Used machine Reps/Minutes 1x20 Other Exercises banded walk Other Exercise Name lateral band walk Resistance yllw Equipment Used loop band Reps/Minutes 3x10' each way Therapeutic Activity Therapeutic Activity step up Name step up Reps/Minutes 2x15 Comments 12'' then 8'' box PT-OP-T Assessment and Plan Start: 02/20/23 16:04 Freq: Status: Active Protocol: Document 03/21/23 11:23 ED (Rec: 03/21/23 11:29 ED [id number]) Physical Therapy Assessment Goals % improvement Impairment % improvement Short Term Goal (STG) pt will report 15% improvement in functional mobility.. STG Duration 3 weeks Director Internal Audit Goal (LTG) Pt will report 30% improvement in functional mobility. LTG Duration 6-8 weeks 30'' STS Impairment 30 second STS Short Term Goal (STG) Pt will improve 30 second STS score by 5 repetitions to a score of 11 repetitions. STG Duration 3 weeks -MET Director Internal Audit Goal (LTG) Pt will improve 30 second STS score by 7 repetitions to a score of 13 repetitions. LTG Duration 6-8 weeks -MET Oswestry Impairment IE: 1450 PN: 1650 Director Internal Audit Goal (LTG) Pt will improve Oswestry score by > 10 points to a score of <4/50. LTG Duration 6-8 weeks HEP Impairment HEP Short Term Goal (STG) Pt will report performing HEP >3 days/week. STG Duration 3 weeks Director Internal Audit Goal (LTG) Pt will report performing HEP >3 days/week. LTG Duration 6-8 weeks Progress Towards Goals Progress Towards Goals Progressing Toward Goals Assessment Summary Assessment Pt improved in 30 second sit<> stand repetitions since initial evaluation; he previously recorded 6 stands but was able to perform 15 in most recent visit. his [facility] Low back pain questionnaire did not improve in the same time span. PT has worked on exercises for low back and LEs going through available and tolerable ROM through stretching and light resistance training. Has been able to perform all exercises comfortably but not improving in regards to daily pain levels. Physical Therapy Plan Frequency and Duration Frequency of Treatment 2x/Week Duration of treatment (weeks) 10 Plan of Care Start Date 02/20/23 Plan of Care End Date 05/21/23 Therapeutic Interventions Therapeutic Interventions Gait Training,Home Exercise Program,Joint Mobilizations, Manual Therapy,Neuromuscular Re-education,Orthotic/ Prosthetic Management,Patient/ Caregiver Education,Self-Care/ Home Management,Soft Tissue Mobilization,Taping, Therapeutic Activities, Therapeutic Exercises Modalities Biofeedback,Cold Pack/Ice Massage,Electric Stimulation, Hot Packs,Ultrasound Next Visit Focus/Plan Next Note Type Progress Note Next Visit Plan Oswestry (14 50 = 28.0 %); update 30 STS (7>15) elliptical? sit<>stand,PB flexion, unilateral leg press, unilateral knee extension, lateral band walks, unstable surface training (boat)
--- NOTE | 2023-03-25 12:15 | PT.OTN ---
Current Diagnoses Other chronic pain (03/25/23) Low back pain, unspecified (03/25/23) Physical Therapy Treatment Note PT-OP-A Visit Information Start: 02/20/23 16:04 Freq: Status: Active Protocol: Document 03/25/23 12:11 ED (Rec: 03/25/23 12:15 ED [id number]) Out-Patient Physical Therapy Visit Information Visit Information Visit Type Treatment Note Visit Note 06/04 Visit Start Time 10:30 Visit Stop Time 12:10 Total Visit Minutes 40 Visit Number 10 PT-OP-B Current Condition Start: 02/20/23 16:04 Freq: Status: Active Protocol: Document 02/20/23 16:55 ED (Rec: 02/20/23 17:09 ED [id number]) Current Condition History of Current Condition Onset Date chronic Current Complaints low back pain, R hip, L knee History of Current Condition Pt states that he has had 3 surgeries for his low back, a CHRISTOS, and a TKA. Some of these surgeries were done in the ' s. he states that he is worse in the PM in regards to functional mobility. Pain typically is between a 5-6/10 but occasionally can become an 7-8/10. He notes weakness in his L LE mostly in his knee extensors which may be d/t to his previous back injuries and surgeries. He is not using an AD currently. Patient states he has to use a sock aid and shoe horn to help him don socks/shoes d/t the lack of flexiblity in his low back. He goes to [employer] 2x/ week and has a full body routine that he follows. Treatment Goals Patient/Caregiver Goals Be able to get on/off his boat Be able to put shoes on without AD PT-OP-C Subjective Start: 02/20/23 16:04 Freq: Status: Active Protocol: Document 03/25/23 12:11 ED (Rec: 03/25/23 12:15 ED [id number]) OP-PT Subjective Patient Comments Patient Comments Pt states he has range of motion and strength improvements but no improvements in pain and he is wondering if there's anything else to do to help decrease his pain. PT-OP-E Functional Tests Start: 02/20/23 16:04 Freq: Status: Active Protocol: Document 03/21/23 11:23 ED (Rec: 03/21/23 11:29 ED [id number]) Functional Tests 30 Second Sit to Stand Test Score 15 Comments IE: 6 PT-OP-K Range of Motion Start: 02/20/23 16:04 Freq: Status: Active Protocol: Document 02/20/23 16:55 ED (Rec: 02/20/23 17:09 ED [id number]) Lumbar Spine Range of Motion Lumbar Spine Active Testing Position Sitting Flexion 20 Extension 5 ROM Limitations Soft Tissue Tightness,Bony Restriction PT-OP-M Strength Start: 02/20/23 16:04 Freq: Status: Active Protocol: Document 02/20/23 16:55 ED (Rec: 02/20/23 17:09 ED [id number]) Knee Strength Knee Manual Muscle Testing Right Flexion (S2) 4 Good Extension (L3) 4 Good Left Flexion (S2) 4 Good Extension (L3) 4- Good- PT-OP-Q Treatments Start: 02/20/23 16:04 Freq: Status: Active Protocol: Document 03/25/23 12:11 ED (Rec: 03/25/23 12:15 ED [id number]) Cardio Equipment Elliptical Duration (Minutes) 8 Resistance 4 Therapeutic Exercises Supine Exercises banded hip flexion Supine Exercise Name tball hip flexion Equipment Used tball Reps/Minutes 2x10 hip bridge Supine Exercise Name bridge + adductor squeeze Equipment Used small ball Reps/Minutes 3x10 Sitting Exercises ab/ad machine Sitting Exercise Name ab/ad machine Resistance L3 Equipment Used machine Reps/Minutes 2x20 ea lumbar flexion Sitting Exercise Name physio ball lumbar flexion Reps/Minutes 3x20 Standing Exercises row Standing Exercise Name bent over cable row Resistance L3 Equipment Used cable column Reps/Minutes 3x10 Comments unilateral PT-OP-T Assessment and Plan Start: 02/20/23 16:04 Freq: Status: Active Protocol: Document 03/25/23 12:11 ED (Rec: 03/25/23 12:15 ED [id number]) Physical Therapy Assessment Goals % improvement Impairment % improvement Short Term Goal (STG) pt will report 15% improvement in functional mobility.. STG Duration 3 weeks Skilled Nursing Goal (LTG) Pt will report 30% improvement in functional mobility. LTG Duration 6-8 weeks 30'' STS Impairment 30 second STS Short Term Goal (STG) Pt will improve 30 second STS score by 5 repetitions to a score of 11 repetitions. STG Duration 3 weeks -MET Skilled Nursing Goal (LTG) Pt will improve 30 second STS score by 7 repetitions to a score of 13 repetitions. LTG Duration 6-8 weeks -MET Oswestry Impairment IE: 14 PN: Skilled Nursing Goal (LTG) Pt will improve Oswestry score by > 10 points to a score of <4/50. LTG Duration 6-8 weeks HEP Impairment HEP Short Term Goal (STG) Pt will report performing HEP >3 days/week. STG Duration 3 weeks Skilled Nursing Goal (LTG) Pt will report performing HEP >3 days/week. LTG Duration 6-8 weeks Assessment Summary Assessment Pt denies any improvement in pain since starting PT but does note that he feels stronger and has greater range of motion. PT attempted to educated patient on pain and that it has many contextual factors and is not always as simple as a tissue injury; patient verbalized understanding. Added seated ab /adductor machine to exercise log today; encouraged patient to see how he feels the next 24-48 hours. No pain noted during other exercises with exception of supine hip flexion with theraball. Physical Therapy Plan Frequency and Duration Frequency of Treatment 2x/Week Duration of treatment (weeks) 10 Plan of Care Start Date 02/20/23 Plan of Care End Date 05/21/23 Therapeutic Interventions Therapeutic Interventions Gait Training,Home Exercise Program,Joint Mobilizations, Manual Therapy,Neuromuscular Re-education,Orthotic/ Prosthetic Management,Patient/ Caregiver Education,Self-Care/ Home Management,Soft Tissue Mobilization,Taping, Therapeutic Activities, Therapeutic Exercises Modalities Biofeedback,Cold Pack/Ice Massage,Electric Stimulation, Hot Packs,Ultrasound Next Visit Focus/Plan Next Note Type Progress Note Next Visit Plan Oswestry (14 50 = 28.0 %); update 30 STS (7>15) elliptical? sit<>stand,PB flexion, unilateral leg press, unilateral knee extension, lateral band walks, unstable surface training (boat)
--- NOTE | 2023-03-28 12:15 | PT.OTN ---
Current Diagnoses Other chronic pain (03/28/23) Low back pain, unspecified (03/28/23) Physical Therapy Treatment Note PT-OP-A Visit Information Start: 02/20/23 16:04 Freq: Status: Active Protocol: Document 03/28/23 12:11 ED (Rec: 03/28/23 12:14 ED [id number]) Out-Patient Physical Therapy Visit Information Visit Information Visit Type Treatment Note Visit Note 07/05 Visit Start Time 11:25 Visit Stop Time 12:10 Total Visit Minutes 45 Visit Number 11 PT-OP-B Current Condition Start: 02/20/23 16:04 Freq: Status: Active Protocol: Document 02/20/23 16:55 ED (Rec: 02/20/23 17:09 ED [id number]) Current Condition History of Current Condition Onset Date chronic Current Complaints low back pain, R hip, L knee History of Current Condition Pt states that he has had 3 surgeries for his low back, a CHRISTOS, and a TKA. Some of these surgeries were done in the ' s. he states that he is worse in the PM in regards to functional mobility. Pain typically is between a 5-6/10 but occasionally can become an 7-8/10. He notes weakness in his L LE mostly in his knee extensors which may be d/t to his previous back injuries and surgeries. He is not using an AD currently. Patient states he has to use a sock aid and shoe horn to help him don socks/shoes d/t the lack of flexiblity in his low back. He goes to [employer] 2x/ week and has a full body routine that he follows. Treatment Goals Patient/Caregiver Goals Be able to get on/off his boat Be able to put shoes on without AD PT-OP-C Subjective Start: 02/20/23 16:04 Freq: Status: Active Protocol: Document 03/28/23 12:11 ED (Rec: 03/28/23 12:14 ED [id number]) OP-PT Subjective Patient Comments Patient Comments Pt states that his low back has been uncomfortable for a few days. States he tried bending over to clean glass of his floor and had a difficult time standing after that. PT-OP-E Functional Tests Start: 02/20/23 16:04 Freq: Status: Active Protocol: Document 03/21/23 11:23 ED (Rec: 03/21/23 11:29 ED [id number]) Functional Tests 30 Second Sit to Stand Test Score 15 Comments IE: 6 PT-OP-K Range of Motion Start: 02/20/23 16:04 Freq: Status: Active Protocol: Document 02/20/23 16:55 ED (Rec: 02/20/23 17:09 ED [id number]) Lumbar Spine Range of Motion Lumbar Spine Active Testing Position Sitting Flexion 20 Extension 5 ROM Limitations Soft Tissue Tightness,Bony Restriction PT-OP-M Strength Start: 02/20/23 16:04 Freq: Status: Active Protocol: Document 02/20/23 16:55 ED (Rec: 02/20/23 17:09 ED [id number]) Knee Strength Knee Manual Muscle Testing Right Flexion (S2) 4 Good Extension (L3) 4 Good Left Flexion (S2) 4 Good Extension (L3) 4- Good- PT-OP-Q Treatments Start: 02/20/23 16:04 Freq: Status: Active Protocol: Document 03/28/23 12:11 ED (Rec: 03/28/23 12:14 ED [id number]) Cardio Equipment Recumbent Bicycle Duration (Minutes) 8 Therapeutic Exercises Supine Exercises banded hip flexion Supine Exercise Name tball hip flexion Equipment Used tball Reps/Minutes 2x10 LTR Reps/Minutes x10 each way hip bridge Supine Exercise Name bridge Equipment Used small ball Reps/Minutes 3x10 Sidelying Exercises glute matrix Sidelying Exercise Name glute matrix Reps/Minutes x10 each side open book Reps/Minutes x10 each way Sitting Exercises ab/ad machine Sitting Exercise Name ab/ad machine Resistance L3 Equipment Used machine Reps/Minutes 2x20 ea lumbar flexion Sitting Exercise Name physio ball lumbar flexion Reps/Minutes 3x20 Therapeutic Activity Therapeutic Activity hip hinge Name rdl Reps/Minutes 2X10 Comments small Tball, basketball PT-OP-T Assessment and Plan Start: 02/20/23 16:04 Freq: Status: Active Protocol: Document 03/28/23 12:11 ED (Rec: 03/28/23 12:14 ED [id number]) Physical Therapy Assessment Goals % improvement Impairment % improvement Short Term Goal (STG) pt will report 15% improvement in functional mobility.. STG Duration 3 weeks Residential Goal (LTG) Pt will report 30% improvement in functional mobility. LTG Duration 6-8 weeks 30'' STS Impairment 30 second STS Short Term Goal (STG) Pt will improve 30 second STS score by 5 repetitions to a score of 11 repetitions. STG Duration 3 weeks -MET Residential Goal (LTG) Pt will improve 30 second STS score by 7 repetitions to a score of 13 repetitions. LTG Duration 6-8 weeks -MET Oswestry Impairment IE: 14/50 PN: 16/50 Super[employer] Goal (LTG) Pt will improve Oswestry score by > 10 points to a score of <4/50. LTG Duration 6-8 weeks HEP Impairment HEP Short Term Goal (STG) Pt will report performing HEP >3 days/week. STG Duration 3 weeks Super[employer] Goal (LTG) Pt will report performing HEP >3 days/week. LTG Duration 6-8 weeks Assessment Summary Assessment Pt denies any improvement in pain since starting PT but does note that he feels stronger and has greater range of motion. PT attempted to educated patient on pain and that it has many contextual factors and is not always as simple as a tissue injury; patient verbalized understanding. Added seated ab /adductor machine to exercise log today; encouraged patient to see how he feels the next 24-48 hours. No pain noted during other exercises with exception of supine hip flexion with theraball. Physical Therapy Plan Frequency and Duration Frequency of Treatment 2x/Week Duration of treatment (weeks) 10 Plan of Care Start Date 02/20/23 Plan of Care End Date 05/21/23
--- NOTE | 2023-04-02 15:57 | PT.OTN ---
Current Diagnoses Other chronic pain (04/02/23) Low back pain, unspecified (04/02/23) Physical Therapy Treatment Note PT-OP-A Visit Information Start: 02/20/23 16:04 Freq: Status: Active Protocol: Document 04/02/23 15:55 ED (Rec: 04/02/23 15:57 ED [id number]) Out-Patient Physical Therapy Visit Information Visit Information Visit Type Treatment Note Visit Note 08/02 Visit Start Time 15:15 Visit Stop Time 15:55 Total Visit Minutes 40 Visit Number 12 PT-OP-B Current Condition Start: 02/20/23 16:04 Freq: Status: Active Protocol: Document 02/20/23 16:55 ED (Rec: 02/20/23 17:09 ED [id number]) Current Condition History of Current Condition Onset Date chronic Current Complaints low back pain, R hip, L knee History of Current Condition Pt states that he has had 3 surgeries for his low back, a CHRISTOS, and a TKA. Some of these surgeries were done in the s. he states that he is worse in the PM in regards to functional mobility. Pain typically is between a 5-6/10 but occasionally can become an 7-8/10. He notes weakness in his L LE mostly in his knee extensors which may be d/t to his previous back injuries and surgeries. He is not using an AD currently. Patient states he has to use a sock aid and shoe horn to help him don socks/shoes d/t the lack of flexiblity in his low back. He goes to [employer] 2x/ week and has a full body routine that he follows. Treatment Goals Patient/Caregiver Goals Be able to get on/off his boat Be able to put shoes on without AD PT-OP-C Subjective Start: 02/20/23 16:04 Freq: Status: Active Protocol: Document 04/02/23 15:55 ED (Rec: 04/02/23 15:57 ED [id number]) OP-PT Subjective Patient Comments Patient Comments Pt states that he will likely finish up his PT on Friday and then go through pain management to help reduce the pain in his back and L groin. PT has helped him in ROM and strength but not in his pain levels. PT-OP-E Functional Tests Start: 02/20/23 16:04 Freq: Status: Active Protocol: Document 03/21/23 11:23 ED (Rec: 03/21/23 11:29 ED [id number]) Functional Tests 30 Second Sit to Stand Test Score 15 Comments IE: 6 PT-OP-K Range of Motion Start: 02/20/23 16:04 Freq: Status: Active Protocol: Document 02/20/23 16:55 ED (Rec: 02/20/23 17:09 ED [id number]) Lumbar Spine Range of Motion Lumbar Spine Active Testing Position Sitting Flexion 20 Extension 5 ROM Limitations Soft Tissue Tightness,Bony Restriction PT-OP-M Strength Start: 02/20/23 16:04 Freq: Status: Active Protocol: Document 02/20/23 16:55 ED (Rec: 02/20/23 17:09 ED [id number]) Knee Strength Knee Manual Muscle Testing Right Flexion (S2) 4 Good Extension (L3) 4 Good Left Flexion (S2) 4 Good Extension (L3) 4- Good- PT-OP-Q Treatments Start: 02/20/23 16:04 Freq: Status: Active Protocol: Document 04/02/23 15:55 ED (Rec: 04/02/23 15:57 ED [id number]) Cardio Equipment Elliptical Duration (Minutes) 8 Resistance 4 Therapeutic Exercises Supine Exercises LTR Reps/Minutes x10 each way hip bridge Supine Exercise Name bridge Equipment Used small ball Reps/Minutes 3x10 Sidelying Exercises glute matrix Sidelying Exercise Name glute matrix Reps/Minutes x10 each side Sitting Exercises lumbar flexion Sitting Exercise Name physio ball lumbar flexion Reps/Minutes 3x20 Therapeutic Activity Therapeutic Activity hip hinge Name rdl Reps/Minutes 2X10 Comments small Tball, basketball PT-OP-T Assessment and Plan Start: 02/20/23 16:04 Freq: Status: Active Protocol: Document 04/02/23 15:55 ED (Rec: 04/02/23 15:57 ED [id number]) Physical Therapy Assessment Goals % improvement Impairment % improvement Short Term Goal (STG) pt will report 15% improvement in functional mobility.. STG Duration 3 weeks Ice Cream Mixer Goal (LTG) Pt will report 30% improvement in functional mobility. LTG Duration 6-8 weeks 30'' STS Impairment 30 second STS Short Term Goal (STG) Pt will improve 30 second STS score by 5 repetitions to a score of 11 repetitions. STG Duration 3 weeks -MET Ice Cream Mixer Goal (LTG) Pt will improve 30 second STS score by 7 repetitions to a score of 13 repetitions. LTG Duration 6-8 weeks -MET Oswestry Impairment IE: 1450 PN: 16 Ice Cream Mixer Goal (LTG) Pt will improve Oswestry score by > 10 points to a score of <4/50. LTG Duration 6-8 weeks HEP Impairment HEP Short Term Goal (STG) Pt will report performing HEP >3 days/week. STG Duration 3 weeks Snf Goal (LTG) Pt will report performing HEP >3 days/week. LTG Duration 6-8 weeks Assessment Summary Assessment Pt denies any improvement in pain since starting PT but does note that he feels stronger and has greater range of motion. PT attempted to educated patient on pain and that it has many contextual factors and is not always as simple as a tissue injury; patient verbalized understanding. Will likely have 1 more PT session before being discharged. Physical Therapy Plan Frequency and Duration Frequency of Treatment 2x/Week Duration of treatment (weeks) 10 Plan of Care Start Date 02/20/23 Plan of Care End Date 05/21/23
--- NOTE | 2023-04-04 15:49 | PT.OPDS ---
Current Diagnoses Other chronic pain (04/04/23) Low back pain, unspecified (04/04/23) Visit Care Team Role Provider Type Tano Sorenson MD Family Provider Physician Primary Care Provider Specialty: Internal Medicine Address: [address] [place] [address], [place], [address] Email: Maria Luisa Wagoner MD Attending Provider Physician Referring Provider Specialty: Internal Medicine Address: [place], [address] Email: Visit Number Visit Number 13 Discharge Summary PT-OP-B Current Condition Start: 02/20/23 16:04 Freq: Status: Active Protocol: Document 02/20/23 16:55 ED (Rec: 02/20/23 17:09 ED [id number]) Current Condition History of Current Condition Onset Date chronic Current Complaints low back pain, R hip, L knee History of Current Condition Pt states that he has had 3 surgeries for his low back, a CHRISTOS, and a TKA. Some of these surgeries were done in the ' s. he states that he is worse in the PM in regards to functional mobility. Pain typically is between a 5-6/10 but occasionally can become an 7-8/10. He notes weakness in his L LE mostly in his knee extensors which may be d/t to his previous back injuries and surgeries. He is not using an AD currently. Patient states he has to use a sock aid and shoe horn to help him don socks/shoes d/t the lack of flexiblity in his low back. He goes to [employer] 2x/ week and has a full body routine that he follows. Treatment Goals Patient/Caregiver Goals Be able to get on/off his boat Be able to put shoes on without AD PT-OP-C Subjective Start: 02/20/23 16:04 Freq: Status: Active Protocol: Document 04/04/23 15:46 ED (Rec: 04/04/23 15:49 ED [id number]) OP-PT Subjective Patient Comments Patient Comments Pt notes that his back and groin pain have not improved since starting PT. He notes improvements in ROM and LE strength but denies any significant improvements in regards to pain. Is ready to be discharged and seek pain specialist at this point. PT-OP-E Functional Tests Start: 02/20/23 16:04 Freq: Status: Active Protocol: Document 03/21/23 11:23 ED (Rec: 03/21/23 11:29 ED [id number]) Functional Tests 30 Second Sit to Stand Test Score 15 Comments IE: 6 PT-OP-K Range of Motion Start: 02/20/23 16:04 Freq: Status: Active Protocol: Document 02/20/23 16:55 ED (Rec: 02/20/23 17:09 ED [id number]) Lumbar Spine Range of Motion Lumbar Spine Active Testing Position Sitting Flexion 20 Extension 5 ROM Limitations Soft Tissue Tightness,Bony Restriction PT-OP-M Strength Start: 02/20/23 16:04 Freq: Status: Active Protocol: Document 02/20/23 16:55 ED (Rec: 02/20/23 17:09 ED [id number]) Knee Strength Knee Manual Muscle Testing Right Flexion (S2) 4 Good Extension (L3) 4 Good Left Flexion (S2) 4 Good Extension (L3) 4- Good- PT-OP-T Assessment and Plan Start: 02/20/23 16:04 Freq: Status: Active Protocol: Document 04/04/23 15:46 ED (Rec: 04/04/23 15:49 ED [id number]) Physical Therapy Assessment Goals % improvement Impairment % improvement Short Term Goal (STG) pt will report 15% improvement in functional mobility.. STG Duration 3 weeks -MET Custodial Goal (LTG) Pt will report 30% improvement in functional mobility. LTG Duration 6-8 weeks -MET 30'' STS Impairment 30 second STS Short Term Goal (STG) Pt will improve 30 second STS score by 5 repetitions to a score of 11 repetitions. STG Duration 3 weeks -MET Dye Range Tender Goal (LTG) Pt will improve 30 second STS score by 7 repetitions to a score of 13 repetitions. LTG Duration 6-8 weeks -MET Oswestry Impairment IE: 14/50 PN: 1650 Dye Range Tender Goal (LTG) Pt will improve Oswestry score by > 10 points to a score of <4/50. LTG Duration 6-8 weeks -NOT MET HEP Impairment HEP Short Term Goal (STG) Pt will report performing HEP >3 days/week. STG Duration 3 weeks Custodial Goal (LTG) Pt will report performing HEP >3 days/week. LTG Duration 6-8 weeks Assessment Summary Assessment Pt will be discharged from PT at this time. Pt had minimal improvements in regards to low back and groin pain; pain seems to be neuropathic rather than musculoskeletal. Pt did report improvements in overall functional mobility such as improved strength and ability to walk around on his boat. Per patient, he has been seeking pain relief and will go through a pain specialist now to see how that can hopefully improve his pain levels. Physical Therapy Plan Discharge Physical Therapy Discharge Reasons Plateau in Progress
== END 2023-04-08 08:43 | disposition home or self-care (01) ==
LOC: PHYS 15:15
PROVIDERS: Family Provider Internal Medicine; PCP Internal Medicine; Referring Provider Internal Medicine; Visit Provider Internal Medicine
DX: M54.50 Low back pain, unspecified (principal); G89.29 Other chronic pain
CPT/HCPCS: 97110; 97112; 97162; 97530

== ENCOUNTER → 2023-04-14 13:06 | Outpatient (CLI) | payer MEDICARE, SELFPAY ==
[2021-08-28 17:41] VITALS: BMI 31.6
--- NOTE | 2023-04-14 13:07 | DI.RAD.S_ITS ---
PROCEDURE: XR LUMBAR SPINE MIN 4V INDICATIONS: BACK PAIN TECHNIQUE: 5 views of the lumbar spine were acquired, including bilateral oblique views. COMPARISON: [facility], CR, XR LUMBAR SPINE 2-3V, 11/20/2020, 13:54. [facility], CR, XR LUMBAR SPINE 2-3V, 12/08/2019, 9:16. FINDINGS: Bones: 5 nonrib-bearing vertebrae are present. Grade 1 retrolisthesis of L3 on L4, L2 on L3 and L1 on L2. Posterior and interbody surgical fusion at L4 through S1, without hardware complication. Moderate disc height loss at remaining levels. Soft tissues: Overlying bowel gas pattern is normal. No suspicious soft tissue calcifications. Oblique images: No pars defects. IMPRESSION: Posterior and interbody surgical fusion at L4 through S1, without hardware complication. Moderate, multilevel degenerative disc disease otherwise. Dictated by: Karthik Perdomo M.D. on 04/14/2023 at 13:34 Approved by: Karthik Perdomo M.D. on 04/14/2023 at 13:37
== END ==
PROVIDERS: Family Provider Internal Medicine; PCP Internal Medicine; Referring Provider Anesthesiology; Visit Provider Anesthesiology
DX: M51.36 Other intervertebral disc degeneration, lumbar region (principal); M54.9 Dorsalgia, unspecified; M47.816 Spondylosis without myelopathy or radiculopathy, lumbar region; M54.16 Radiculopathy, lumbar region; M25.552 Pain in left hip; M25.561 Pain in right knee; M16.12 Unilateral primary osteoarthritis, left hip; G89.29 Other chronic pain; Z98.1 Arthrodesis status; Z96.651 Presence of right artificial knee joint
CPT/HCPCS: 72110; 99214

== ENCOUNTER → 2023-05-01 16:06 | Outpatient (CLI) | payer MEDICARE, SELFPAY ==
[2021-08-28 17:41] VITALS: BMI 31.6
--- NOTE | 2023-05-01 16:08 | DI.MRI.S_ITS ---
PROCEDURE: MR LUMBAR SPINE WO CON INDICATIONS: Lumbar radiculopathy s/p L4-S1 fusion TECHNIQUE: Noncontrast sagittal T1 spin echo and T2 fast echo, sagittal STIR, and T2 fast spin echo through the lumbar spine. In cases with scoliosis, additional coronal T2 fast spin echo may be performed. COMPARISON: [facility], MR, MR LUMBAR SPINE WO CON, 07/02/2019, 16:34. FINDINGS: Image quality: Excellent. Alignment and Curvature: There is trace L3 on L4 retrolisthesis. The previously visualized trace L4 on L5 is no longer present. Patient is status post posterior fixation and discectomy from L4-S1. Bone Marrow: Marrow is of normal overall signal. No acute vertebral body compression fractures. Spinal Cord: Conus medullaris terminates at the L1 level. Visualized cord demonstrates normal signal and size. Paraspinous Soft Tissues: No paravertebral masses. A T2 hyperintense lesion is present at the lower pole of the left kidney suggesting the presence of a renal cyst. This is unchanged from the study dated July 02, 2019. T12-L1: Severe disc desiccation and height loss. Broad-based disc bulge. No canal stenosis. No foraminal narrowing. Findings are unchanged from the study dated July 02, 2019. L1-L2: Severe disc desiccation and height loss. Mild facet and ligamentum flavum hypertrophy. No canal stenosis. Mild right foraminal stenosis. Findings are unchanged from the prior study. L2-L3: Severe disc desiccation and height loss. Moderate facet ligamentum flavum hypertrophy. No canal stenosis. Mild bilateral foraminal stenosis. L3-L4: Severe disc desiccation and height loss. Severe facet ligamentum flavum hypertrophy. No canal stenosis. Mild bilateral foraminal stenosis. Findings are unchanged. L4-L5: Status post left hemilaminectomy, posterior fusion and discectomy. No canal stenosis. There is mild right and severe left neural foraminal stenosis. The degree of neural foraminal narrowing is similar to the prior study. L5-S1: Status post left hemilaminectomy, posterior fusion and discectomy. No canal stenosis. Mild right and severe left foraminal stenosis. The degree of foraminal stenosis is similar to the prior study. IMPRESSION: 1. Postoperative change. 2. Severe neural foraminal stenosis on the left at L4-5 and L5-S1. 3. No canal stenosis. Dictated by: Mracella Borrego M.D. on 05/01/2023 at 18:06 Approved by: Marcella Borrego M.D. on 05/01/2023 at 18:15
== END ==
PROVIDERS: Family Provider Internal Medicine; PCP Internal Medicine; Referring Provider Anesthesiology; Visit Provider Anesthesiology
DX: M47.26 Other spondylosis with radiculopathy, lumbar region (principal); M48.061 Spinal stenosis, lumbar region without neurogenic claudication; M48.07 Spinal stenosis, lumbosacral region; Z98.1 Arthrodesis status
CPT/HCPCS: 72148

== ENCOUNTER 2023-05-16 22:16 | Emergency (ER) | payer MEDICARE, SELFPAY ==
[2021-08-28 17:41] VITALS: BMI 31.6
[2023-05-16 22:25] VITALS: BP 211/110; PULSE 86; RESP 19; TEMP 36.9; O2SAT 95; BMI 35.2
[2023-05-16 22:37] VITALS: PULSE 78; O2SAT 96
[2023-05-16 22:46] LABS: Add Manual Diff / Slide Review NO; Basophils Absolute Auto 100 /uL (0-100); Eosinophils Absolute Auto 100 /uL (0-450); Eosinophils Percent Auto 1.8 % (2-4); Hematocrit 39.6 % (41-53); Hemoglobin 13.5 g/dL (13.5-17.5); Lymphocytes Absolute Auto 1800 /uL (1100-4500); Lymphocytes Percent Auto 27.1 % (25-40); Mean Corpuscular HGB Conc 34.1 % (30-36); Mean Corpuscular Hemoglobin 33.2 PG (26-34); Mean Corpuscular Volume 97.3 fL (80-100); Monocytes Absolute Auto 600 /uL (0-900); Neutrophils Absolute Auto 4000 /uL (1500-7000); Neutrophils Percent Auto 61.1 % (50-75); Platelet Count 193 X10^3/uL (150-400); Red Blood Cell Count 4.07 X10^6/uL (4.5-5.9); White Blood Cell Count 6.6 X10^3/uL (4.5-11.0)
[2023-05-16 22:51] LABS: Prothrombin Time 11.7 SECONDS (9.4-12.5)
[2023-05-16] MEDS: ASPIRIN 81 MG CHEW TAB 324 MG PO (22:51)
[2023-05-16 22:54] LABS: PTT Partial Thromboplastin Tim 29 SECONDS (25.1-36.5)
[2023-05-16 23:00] VITALS: BP 171/100; PULSE 77; RESP 19; O2SAT 94
[2023-05-16 23:00] LABS: Alanine Aminotransferase 38 IU/L (<50); Albumin 4.4 g/dL (3.5-5.0); Albumin Globulin Ratio 1.3 (1.0-2.8); Alkaline Phosphatase 48 U/L (38-126); Aspartate Aminotransferase 36 IU/L (17-59); BUN Creatinine Ratio 23.7 (6-22); Bilirubin Total 0.6 mg/dL (0.2-1.3); Blood Urea Nitrogen 23 mg/dL (9-20); Calcium 9.6 mg/dL (8.4-10.2); Carbon Dioxide 23 mmol/L (22-32); Chloride 104 mmol/L (98-107); Creatine Kinase 331 U/L (55-170); Estimated Glomerular Filt Rate > 60 mL/min (>60); Globulin 3.4 g/dL (1.7-4.1); Glucose 131 mg/dL (80-110); HEMOLYSIS 28 (0-50); Lipase 74 U/L (23-300); Magnesium 1.9 mg/dL (1.6-2.3); Potassium 3.8 mmol/L (3.4-5.1); Sodium 137 mmol/L (137-145); Total Protein 7.8 g/dL (6.3-8.2)
[2023-05-16 23:11] LABS: Troponin I < 0.012 ng/mL (0.01-0.034)
--- NOTE | 2023-05-16 23:14 | DI.CT.S_ITS ---
PROCEDURE: CT CHEST W CON INDICATIONS: chest pain after trauma TECHNIQUE: After the administration of intravenous contrast, 5 mm thick sections acquired from the pulmonary apices to the posterior costophrenic angles. 1 mm axial lung, 5 mm thick coronal and sagittal reformats and 7 mm axial MIP were acquired. For radiation dose reduction, the following was used: automated exposure control, adjustment of mA and/or kV according to patient size. COMPARISON: [facility], CR, XR CHEST 2V, 02/04/2018, 15:37. FINDINGS: Image quality: Diagnostic. Lower Neck: No enlarged lymph nodes. Thyroid: No thyroid nodules which require sonographic follow up, per consensus guidelines. Axillae: No enlarged lymph nodes. Chest Wall: Unremarkable. Bones: Unremarkable. Lungs and Pleura: Streaky left pulmonary opacities are present predominantly in the base likely atelectasis. Heart: Heart size is normal. No pericardial effusion. Thoracic Vessels: The aorta and pulmonary arteries demonstrate normal size. Mediastinum and [place]: No enlarged lymph nodes. Esophagus: No wall thickening. Qicx-ky-glyzfoxt hiatal hernia. Upper Abdomen: Simple left renal cyst. Visualized upper abdomen solid organs and bowel loops appear normal. IMPRESSION: Left lower lobe atelectasis. Dictated by: Brandi Contreras M.D. on 05/16/2023 at 23:22 Approved by: Brandi Contreras M.D. on 05/16/2023 at 23:25
[2023-05-16 23:30] VITALS: PULSE 80; RESP 23; O2SAT 93
[2023-05-17] VITALS (7 sets, daily range): BP systolic 165–180; BP diastolic 93–102; PULSE 79–93; RESP 13–28; O2SAT 93–95
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
== END 2023-05-17 02:56 | disposition home or self-care (01) ==
PROVIDERS: Emergency Provider Emergency Medicine; Family Provider Internal Medicine; PCP Internal Medicine
DX: R07.89 Other chest pain (principal); V19.9XXA Pedal cyclist (driver) (passenger) injured in unspecified traffic accident, initial encounter
CPT/HCPCS: 71260; 80053; 82550; 83690; 83735; 84484; 85025; 85610; 85730; 93005; 93010; 99283; 99284

== ENCOUNTER → 2023-05-29 11:10 | Outpatient (CLI) | payer MEDICARE, SELFPAY ==
[2021-08-28 17:41] VITALS: BMI 31.6
== END ==
LOC: PHYS 11:11
PROVIDERS: Family Provider Internal Medicine; PCP Internal Medicine; Referring Provider Anesthesiology; Visit Provider Anesthesiology
DX: Z98.1 Arthrodesis status (principal); M54.16 Radiculopathy, lumbar region
CPT/HCPCS: 95886; 95909

== ENCOUNTER → 2023-05-30 09:15 | Outpatient (CLI) | payer MEDICARE, SELFPAY ==
[2021-08-28 17:41] VITALS: BMI 31.6
[2023-05-30 10:49] LABS: Add Manual Diff / Slide Review NO; Basophils Absolute Auto 100 /uL (0-100); Basophils Percent Auto 0.9 % (0-2); Eosinophils Absolute Auto 100 /uL (0-450); Eosinophils Percent Auto 2.6 % (2-4); Hematocrit 39.6 % (41-53); Hemoglobin 13.3 g/dL (13.5-17.5); Lymphocytes Absolute Auto 1500 /uL (1100-4500); Mean Corpuscular HGB Conc 33.6 % (30-36); Mean Corpuscular Hemoglobin 33.1 PG (26-34); Mean Corpuscular Volume 98.2 fL (80-100); Monocytes Absolute Auto 600 /uL (0-900); Monocytes Percent Auto 10.5 % (3-14); Neutrophils Absolute Auto 3200 /uL (1500-7000); Platelet Count 189 X10^3/uL (150-400); Red Blood Cell Count 4.03 X10^6/uL (4.5-5.9); Red Cell Distribution Width 14.7 % (11.6-14.8); White Blood Cell Count 5.5 X10^3/uL (4.5-11.0)
[2023-05-30 11:19] LABS: C-Reactive Protein Quant < 0.5 mg/dL (<1.0)
[2023-05-30 11:38] LABS: Erythrocyte Sedimentation Rate 8 MM/HR (0-15)
== END ==
LOC: LAB 09:16
PROVIDERS: Family Provider Internal Medicine; PCP Internal Medicine; Referring Provider Orthopaedic Surgery Foot and Ankle Surgery; Visit Provider Orthopaedic Surgery Foot and Ankle Surgery
DX: M25.561 Pain in right knee (principal); Z96.651 Presence of right artificial knee joint
CPT/HCPCS: 36415; 85025; 85651; 86140

== ENCOUNTER 2023-06-04 09:49 | Outpatient (CLI) | payer MEDICARE, SELFPAY ==
[2021-08-28 17:41] VITALS: BMI 31.6
[2023-06-04] VITALS (8 sets, daily range): BP systolic 145–165; BP diastolic 79–99; PULSE 67–75; RESP 15–23; TEMP 36.4; O2SAT 93–97
--- NOTE | 2023-06-04 10:30 | DI.RAD.S_ITS ---
PROCEDURE: PAIN L/S FACET INJ/BLK 1ST JARETT INDICATIONS: SPONDYLOSIS COMPARISON: None. FINDINGS: Fluoroscopic spot filming was performed to verify placement of spinal needles at the bilateral L1-2 and L2-3 level(s), as labeled on the films. Appropriate location(s) of the needle tip(s) was confirmed by injection of iodinated contrast. IMPRESSION: Fluoroscopic guidance utilized for a bilateral L1-2 and L2-3 medial branch block. Dictated by: Karthik Perdomo M.D. on 06/04/2023 at 13:09 Approved by: Karthik Perdomo M.D. on 06/04/2023 at 13:09
[2023-06-04] MEDS: MIDAZOLAM 2 MG/2 ML VIAL IV (10:31)
[2023-06-04] MEDS: iopamidoL 15 ML VIAL 3 ML INJ (10:35)
[2023-06-04] MEDS: BUPIVACAINE 0.5% (PF) 10 ML VIAL 5 ML INJ (10:35)
--- NOTE | 2023-06-04 11:33 | PM.PROC.IR.1 ---
Date/Time/Diagnoses Date of procedure: 06/04/23 Time of procedure: 10:30 Procedure Notes Physician: David Madrigal Total Fluoroscopy time (seconds): 17 Total sedation minutes: 15 Procedure in detail & Post-procedure care: Bilateral L1-2 and L2-3 Lumbar Medial Branch Blocks Indications: Toni is presenting for treatment of lumbar spondylosis with low back pain. Preoperative diagnosis: Lumbar spondylosis Postoperative diagnosis: Same Pre-procedure History: Patient demonstrates today moderate to severe non- radicular back pain without neurologic deficit aggravated by hyperextension yes Back pain greater than leg pain? yes Patient today has tenderness over the suspected joint(s) yes History of post-traumatic injury? no Hypertrophic arthropathy yes Back pain associated with suspected motion segment instability, hypermobility or pseudoarthrosis no Focused Examination: Ax3 Mood and affect are normal Vital Signs: VSS ASA: 2 Consent: Following review of allergies and potential side effects/complications, including, but not necessarily limited to, infection, allergic reaction, local tissue breakdown, stroke, temporary or permanent nerve injury, paralysis, and possible , the patient indicated that they understood and agreed to proceed.? An informed consent document was signed by the patient, witnessed by a nurse and placed in the patient's chart.? Additionally, other treatment options including medications and physical therapy were reviewed with the patient. All questions were answered. Site was then marked. Anesthesia: After review of previous anesthetic history and IV conscious sedation, the patient was deemed safe to proceed with today's procedure with IV conscious sedation. IV sedation was accomplished with midazolam 2 mg administered by the RN after order by Dr. Madrigal. Sedation was titrated to patient comfort during the course of the procedure. Patient remained responsive to all verbal commands. Position: Prone Monitoring: NIBP, Pulse oximetry, 3 lead EKG Needle used: 22 ga 3.5 inch spinal needle Contrast: Isovue 300M Injectate: 0.5% bupivacaine 1 mL per site Procedure: The patient was brought into the procedure room and positioned into the prone position. Skin was prepped with a Chloraprep solution, allowed to air dry, and then draped in sterile fashion.? The right L1-2 and L2-3 facet joints were visually identified with fluoroscopy. Lidocaine 1% was used to anesthetize the skin over each target destination with a 25ga needle. A 22 ga, 3.5 inch spinal needle was advanced to the location of the medial branch at the junction of the superior articular process and the transverse process at L1,2,3 using intermittent fluoroscopy in the AP view. Isovue 300M contrast 0.2ml was injected at each level outlining the medial borders for each level in the AP and lateral views. There was no evidence of vascular or intrathecal uptake. The above injectate was slowly injected at each target destination. The left L1-2 and L2-3 facet joints were visually identified with fluoroscopy. Lidocaine 1% was used to anesthetize the skin over each target destination with a 25ga needle. A 22 ga, 3.5 inch spinal needle was advanced to the location of the medial branch at the junction of the superior articular process and the transverse process at L1,2,3 using intermittent fluoroscopy in the AP view. Isovue 300M contrast 0.2ml was injected at each level outlining the medial borders for each level in the AP and lateral views. There was no evidence of vascular or intrathecal uptake. The above injectate was slowly injected at each target destination. At the end of the procedure the needles were withdrawn and Band-Aids were applied for a dressing. Post Procedure: Patient was taken to the recovery and monitored. The patient was provided a Pain Log to continue to record the patient's response to the target-specific procedure prior to the patient's follow-up visit with the referring physician. Patient was stable upon discharge. Detailed post procedure instructions were provided. Patient was asked to call in the event of worsening pain, fever, weakness, numbness or bladder or bowel incontinence. Based on the medial branches blocked today, if the patient meets insurance criteria for radiofrequency, the treatment should result in the denervation of the bilateral L1-2 and L2-3 facet joint nerves. We would expect to denervate a total of 4 facets during the radiofrequency ablation.
== END 2023-06-04 11:10 | disposition home or self-care (01) ==
PROVIDERS: Family Provider Internal Medicine; PCP Internal Medicine; Referring Provider Anesthesiology; Visit Provider Anesthesiology
DX: M47.816 Spondylosis without myelopathy or radiculopathy, lumbar region (principal)
CPT/HCPCS: 64493; 64494; 99152; J2250

== ENCOUNTER → 2023-06-10 09:09 | Outpatient (CLI) | payer OTHER, SELFPAY ==
[2021-08-28 17:41] VITALS: BMI 31.6
--- NOTE | 2023-06-10 09:10 | DI.NM.S_ITS ---
PROCEDURE: NM BONE 3 PHASE RADIOPHARMACEUTICAL: 21.5 mCi Tc-99m MDP IV. INDICATIONS: Eval for loosening TECHNIQUE: Multiple bone scintigrams were obtained after intravenous injection of Tc-99m MDP, including flow, blood pool, and delayed images centered to the region of interest. COMPARISON: [facility], CR, XR KNEE 4+ VIEWS RIGHT, 05/27/2023, 13:35. FINDINGS: Focused images were obtained of the lower extremities at the knee. On flow images, there is symmetric radiotracer to the lower extremities. On blood pool images, there is symmetric appearance of the blood pool. On delayed images, focal uptake is seen at the patella. Mild focal uptake is seen also at the tibial plateau, more on the medial side, and femoral condyle, more on the lateral side. IMPRESSION: Mild uptake at the tibial plateau and femoral condyle, more involving medial tibia and lateral femur, surrounding the knee arthroplasty. More intense focal uptake is also seen at the patella. Findings could represent loosening and postsurgical changes. Infection is felt to be less likely given symmetric blood pool and flow images. Dictated by: Logan Conklin M.D. on 06/10/2023 at 15:23 Approved by: Logan Conklin M.D. on 06/10/2023 at 15:28
== END ==
LOC: NUCM 09:09
PROVIDERS: Family Provider Internal Medicine; PCP Internal Medicine; Referring Provider Orthopaedic Surgery Foot and Ankle Surgery; Visit Provider Orthopaedic Surgery Foot and Ankle Surgery
DX: T84.84XA Pain due to internal orthopedic prosthetic devices, implants and grafts, initial encounter (principal)
CPT/HCPCS: 78315; A9503

== ENCOUNTER 2023-07-02 12:48 | Outpatient (CLI) | payer OTHER, SELFPAY ==
[2021-08-28 17:41] VITALS: BMI 31.6
[2023-07-02] VITALS (8 sets, daily range): BP systolic 112–144; BP diastolic 63–82; PULSE 68–77; RESP 12–18; TEMP 36.1; O2SAT 94–97
--- NOTE | 2023-07-02 13:30 | DI.RAD.S_ITS ---
PROCEDURE: PAIN L/S FACET INJ/BLK 1ST JARETT INDICATIONS: LUMBAR SPONDYLOSIS COMPARISON: [facility], , PAIN L/S FACET INJ/BLK 1ST JARETT, 06/04/2023, 11:35. FINDINGS: Fluoroscopic spot filming was performed to verify placement of spinal needles on both sides at the L1 through L3 levels, as labeled on the films. Appropriate location of the needle tips was confirmed by injection of iodinated contrast. IMPRESSION: Intraprocedural examination demonstrating appropriate positions of the needles. Dictated by: Archie Muñoz M.D. on 07/02/2023 at 18:08 Approved by: Archie Muñoz M.D. on 07/02/2023 at 18:09
[2023-07-02] MEDS: MIDAZOLAM 2 MG/2 ML VIAL IV (13:52)
[2023-07-02] MEDS: iopamidoL 15 ML VIAL 3 ML INJ (13:55)
[2023-07-02] MEDS: LIDOCAINE 2% INJ SDV 5ML 10 ML INJ (13:56)
--- NOTE | 2023-07-02 16:04 | P.PCN_ITS ---
Date/Time/Diagnoses Date of procedure: 07/02/23 Time of procedure: 13:30 Procedure Notes Physician: David Madrigal Total Fluoroscopy time (seconds): 15 Total sedation minutes: 11 Procedure in detail & Post-procedure care: Bilateral L1-2 and L2-3 Lumbar Medial Branch Blocks Indications: Toni is presenting for treatment of lumbar spondylosis with low back pain. Preoperative diagnosis: Lumbar spondylosis Postoperative diagnosis: Same Pre-procedure History: Patient demonstrates today moderate to severe non- radicular back pain without neurologic deficit aggravated by hyperextension yes Back pain greater than leg pain? yes Patient today has tenderness over the suspected joint(s) yes History of post-traumatic injury? no Hypertrophic arthropathy yes Back pain associated with suspected motion segment instability, hypermobility or pseudoarthrosis no Focused Examination: Ax3 Mood and affect are normal Vital Signs: VSS ASA: 2 Consent: Following review of allergies and potential side effects/complications, including, but not necessarily limited to, infection, allergic reaction, local tissue breakdown, stroke, temporary or permanent nerve injury, paralysis, and possible , the patient indicated that they understood and agreed to proceed.? An informed consent document was signed by the patient, witnessed by a nurse and placed in the patient's chart.? Additionally, other treatment options including medications and physical therapy were reviewed with the patient. All questions were answered. Site was then marked. Anesthesia: After review of previous anesthetic history and IV conscious sedation, the patient was deemed safe to proceed with today's procedure with IV conscious sedation. IV sedation was accomplished with midazolam 2 mg administered by the RN after order by Dr. Madrigal. Sedation was titrated to patient comfort during the course of the procedure. Patient remained responsive to all verbal commands. Position: Prone Monitoring: NIBP, Pulse oximetry, 3 lead EKG Needle used: 22 ga 3.5 inch spinal needle Contrast: Isovue 300M Injectate: 2% lidocaine 1 mL per site Procedure: The patient was brought into the procedure room and positioned into the prone position. Skin was prepped with a Chloraprep solution, allowed to air dry, and then draped in sterile fashion.? The right L1-2 and L2-3 facet joints were visually identified with fluoroscopy. Lidocaine 1% was used to anesthetize the skin over each target destination with a 25ga needle. A 22 ga, 3.5 inch spinal needle was advanced to the location of the medial branch at the junction of the superior articular process and the transverse process at L1,2,3 using intermittent fluoroscopy in the AP view. Isovue 300M contrast 0.2ml was injected at each level outlining the medial borders for each level in the AP and lateral views. There was no evidence of vascular or intrathecal uptake. The above i njectate was slowly injected at each target destination. The left L1-2 and L2-3 facet joints were visually identified with fluoroscopy. Lidocaine 1% was used to anesthetize the skin over each target destination with a 25ga needle. A 22 ga, 3.5 inch spinal needle was advanced to the location of the medial branch at the junction of the superior articular process and the transverse process at L1,2,3 using intermittent fluoroscopy in the AP view. Isovue 300M contrast 0.2ml was injected at each level outlining the medial borders for each level in the AP and lateral views. There was no evidence of vascular or intrathecal uptake. The above injectate was slowly injected at each target destination. At the end of the procedure the needles were withdrawn and Band-Aids were applied for a dressing. Post Procedure: Patient was taken to the recovery and monitored. The patient was provided a Pain Log to continue to record the patient's response to the target- specific procedure prior to the patient's follow-up visit with the referring physician. Patient was stable upon discharge. Detailed post procedure instructions were provided. Patient was asked to call in the event of worsening pain, fever, weakness, numbness or bladder or bowel incontinence. Based on the medial branches blocked today, if the patient meets insurance criteria for radiofrequency, the treatment should result in the denervation of the bilateral L1-2 and L2-3 facet joint nerves. We would expect to denervate a total of 4 facets during the radiofrequency ablation.
== END 2023-07-02 14:30 | disposition home or self-care (01) ==
PROVIDERS: Family Provider Internal Medicine; PCP Internal Medicine; Referring Provider Anesthesiology; Visit Provider Anesthesiology
DX: M47.816 Spondylosis without myelopathy or radiculopathy, lumbar region (principal)
CPT/HCPCS: 64493; 64494; 64495; 99152; J2250

== ENCOUNTER 2023-08-20 10:16 | Outpatient (CLI) | payer OTHER, SELFPAY ==
[2021-08-28 17:41] VITALS: BMI 31.6
[2023-08-20] VITALS (23 sets, daily range): BP systolic 96–154; BP diastolic 57–94; PULSE 58–79; RESP 10–31; TEMP 36.4; O2SAT 92–99
[2023-08-20] MEDS: MIDAZOLAM 2 MG/2 ML VIAL 1 MG IV ×2 (10:47→11:08)
[2023-08-20] MEDS: BUPIVACAINE 0.5% (PF) 10 ML VIAL 5 ML INJ (10:53)
[2023-08-20] MEDS: LIDOCAINE 2% INJ MDV 20ML 5 ML INJ (10:53)
[2023-08-20] MEDS: DEXAMETHASONE 10 MG/ML VIAL INJ (10:54)
--- NOTE | 2023-08-20 11:00 | DI.RAD.S_ITS ---
PROCEDURE: PAIN L/S MED/LAT N RFA BILAT INDICATIONS: SPONDYLOSIS COMPARISON: None. FINDINGS: Fluoroscopic spot filming was performed to verify placement of spinal needles at the L1 through L3 level(s), as labeled on the films. Appropriate location(s) of the needle tip(s) was confirmed by injection of iodinated contrast. IMPRESSION: L1 through L3 contrast and needle localization. Dictated by: Brandi Contreras M.D. on 08/20/2023 at 13:44 Approved by: Brandi Contreras M.D. on 08/20/2023 at 13:50
--- NOTE | 2023-08-20 11:35 | P.PCN_ITS ---
Date/Time/Diagnoses Date of procedure: 08/20/23 Time of procedure: 11:00 Procedure Notes Physician: David Madrigal Total Fluoroscopy time (seconds): 24 Total sedation minutes: 40 Procedure in detail & Post-procedure care: Bilateral L1-2 and L2-3 Lumbar Medial Branch Radio Frequency Ablation Indications: Toni presents for treatment of lumbar spondylosis with low back pain. Preoperative diagnosis: Lumbar spondylosis Postoperative diagnosis: Same Focused Examination: Ax3 Mood and affect are normal Vital Signs: VSS ASA: 3 Consent: Following review of allergies and potential side effects/complications, including, but not necessarily limited to, infection, allergic reaction, local tissue breakdown, stroke, temporary or permanent nerve injury, paralysis, and possible , the patient indicated that they understood and agreed to proc eed.? An informed consent document was signed by the patient, witnessed by a nurse and placed in the patient's chart.? Additionally, other treatment options including medications and physical therapy were reviewed with the patient. All questions were answered. Site was then marked. Position: Prone Monitoring: NIBP, Pulse oximetry, 3 lead EKG Needle used: 18 guage, 100 mm, 10 mm active tip Anesthesia: Local with IV sedation. After review of previous anesthetic history and IV conscious sedation, the patient was deemed safe to proceed with today's procedure with IV conscious sedation. IV sedation was accomplished with midazolam 2 mg administered by the RN after order by Dr. Madrigal. Sedation was titrated to patient comfort during the course of the procedure. Patient remained responsive to all verbal commands. Procedure: The patient was brought into the procedure room and positioned into the prone position. Skin was prepped with a Chloraprep solution, allowed to air dry, and then draped in sterile fashion.? The right L1-2 and L2-3 facet joints were visually identified with fluoroscopy. Lidocaine 1% was used to anesthetize the skin over each target destination with a 25ga needle. An 18 ga, 100 mm RFA needle with a 10 mm active tip was advanced to the location of the medial branch at the junction of the superior articular process and the transverse process at L1,2,3 using intermittent fluoroscopy in the oblique view with caudal tilt. AP and lateral radiographs were taken to confirm proper needle placement. No paresthesias were noted. The stylet was removed and the radiofrequency probe was inserted through the cannula. Each level was individually tested.? Motor stimulation up to 2V elicited multifidus twitching in the lumbar spine. There was no motor stimulation in the lower extremities. After negative aspiration, 1ml of 2% lidocaine was injected at each of the levels and radiofrequency denervation carried out using 80 degrees Celsius for 90 seconds. The needles were then rotated 90 degrees and a second ablation was performed at 80 degrees Celsius for 90 seconds. Next, the left L1-2 and L2-3 facet joints were visually identified with fluoroscopy. Lidocaine 1% was used to anesthetize the skin over each target destination with a 25ga needle. An 18 ga, 100 mm RFA needle with a 10 mm active tip was advanced to the location of the medial branch at the junction of the superior articular process and the transverse process at L1,2,3 using intermittent fluoroscopy in the oblique view with caudal tilt. AP and lateral radiographs were taken to confirm proper needle placement. No paresthesias were noted. The stylet was removed and the radiofrequency probe was inserted through the cannula. Each level was individually tested. Motor stimulation up to 2V elicited multifidus twitching in the lumbar spine. There was no motor stimulation in the lower extremities. After negative aspiration, 1ml of 2% lidocaine was injected at each of the levels and radiofrequency denervation carried out using 80 degrees Celsius for 90 seconds. The needles were then rotated 90 degrees and a second ablation was performed at 80 degrees Celsius for 90 seconds. After ablation, a mixture of 10 mg dexamethasone with 0.5% bupivacaine 5 mL was injected in equal amounts among the sites (1 mL per site). At the end of the procedure the needles were withdrawn and Band-Aids were applied for a dressing. This procedure is expected to denervate the bilateral L1-2 and L2-3 facet joints. Post Procedure: Patient was taken to the recovery and monitored. The patient was provided a Pain Log to continue to record the patient's response to the target- specific procedure prior to the patient's follow-up visit with the referring physician. Patient was stable upon discharge. Detailed post procedure instructions were provided. Patient was asked to call in the event of worsening pain, fever, weakness, numbness or bladder or bowel incontinence. Complications: None
--- NOTE | 2023-08-20 11:42 | PC.NURSE ---
Patient stable, awake in NAD throughout procedure. Towards the end during the second cauterization of the left side patient became increasingly uncomfortable with complaints of being woozy and queasy. Patient was found to be diaphoretic. Noted the BP reading had timed out. Repeated BP X 3 unreadable. A reading was finally resulted of 96/60. Tele SR with PAC's. Sp02 94% on 3LNC. At this time patient was then log rolled onto gurney to avoid further drops in BP. Repeat immediately up to 120 SBP. Patient reported improvements in symptoms. Care transferred to Bailey RN and Nisa RN in pre/post. Dr. Madrigal bedside throughout. Updated on patient status.
[2023-08-20] MEDS: SODIUM CHLORIDE 0.9% 500 ML 1000 ML IV (11:43)
--- NOTE | 2023-08-20 14:03 | PC.NURSE ---
patient arrived to post procedure area via strether with his head in a 10-30degree angle due to hypotension at the end of his procedure. Dr. Madrigal gave a verbal order for a 500mL IV bolus of 0.9%NS which was started at 1143. patient kept on the stretcher with his head in 10-30 degree postition for first BP and then his bed was raised to the 45 degree position for three BPs at which point his BP dropped a bit again. He was then switched in to the trendelenburg position for three BP cycles when it was determined that his BP was stable in that postion and he was then moved in to his head up to the 45 degree stretcher position again. He remained in that position for another 3 BP's and his BP's remained stable in that position as well. Dr. Madrigal was then notified and he came out to see the patient. At 1218 the patient was sat on the edge of the stretcher with one nurse and Dr. Madrigal at bedside and his BP was rechecked. His BP was stable with that position change and then the patient was stood up with 2 person minimal assist which included Dr. Madrigal. The patient's BP was agian checked while he was standing with his ambulatory aid (cane) and his BP also remained stable while standing. Dr. Madrigal then gave the OK to DC patient home. The 0.9%NS IV bolus was finished and DC'd at 1221. Patient was then DC'd home at 1225.
--- NOTE | 2023-08-21 12:55 | PC.NURSE ---
spoke with patient and reports that he is doing well. He states that yesterday he felt like a zombie after but around the evening he felt pretty good and that the pain was a 3/10. This morning his pain continues to be a 3/10. reports he still has this ache that goes across his lower back but that it has improved. If he moves a certain way he gets a sharp pain to his right lower side. Patient has no questions or concerns at this time. Patient was encourage if he has and questions to please contact the office.
== END 2023-08-20 12:25 | disposition home or self-care (01) ==
PROVIDERS: Family Provider Internal Medicine; PCP Internal Medicine; Referring Provider Anesthesiology; Visit Provider Anesthesiology
DX: M47.816 Spondylosis without myelopathy or radiculopathy, lumbar region (principal)
CPT/HCPCS: 64635; 64636; 99152; 99153; J1100; J2250

== ENCOUNTER 2023-10-09 10:30 | Outpatient (RCR) | payer MEDICARE, SELFPAY ==
[2021-08-28 17:41] VITALS: BMI 31.6
--- NOTE | 2023-08-29 16:39 | PT.OIE ---
Current Diagnoses Stiffness of right hip, not elsewhere classified (08/29/23) Stiffness of right knee, not elsewhere classified (08/29/23) Muscle weakness (generalized) (08/29/23) Other abnormalities of gait and mobility (08/29/23) Presence of right artificial knee joint (08/29/23) Past Medical History (Last Updated 07/08/23 @ 11:08 by David Madrigal MD) Anxiety Dorsalgia Exposure to COVID-19 virus (~07/2019) GERD (gastroesophageal reflux disease) HTN (hypertension) Hyperlipidemia Kidney stones Left hip pain Lumbar radiculopathy Lumbar spondylosis PVC's (premature ventricular contractions) RBBB (right bundle branch block) Right knee pain Past Surgical History (Last Reviewed 07/08/23 @ 11:07 by David Madrigal MD) History of arthroplasty of right knee (01/23/15) History of lumbar fusion History of lumbar spinal fusion (12/08/19) History of lumbar spinal fusion (11/20/20) History of total knee arthroplasty History of vasectomy (1989) Hx of appendectomy Hx of eye surgery Hx of foot surgery (1984) Hx of laminectomy (~1989) Hx of lithotripsy Visit Care Team Role Provider Type Maria Luisa Wagoner MD Primary Care Provider Physician Specialty: Internal Medicine Address: [place], [address] Email: Tano Sorenson MD Family Provider Physician Specialty: Internal Medicine Address: [address] [place] [address], [address] Email: Tigre Fong MD Attending Provider Physician Referring Provider Specialty: Orthopedics Orthopedic Surgery Address: [address] [place] [address], [id number] Email: [email or web address] [facility] Initial Evaluation PT-OP-A Visit Information Start: 08/29/23 13:35 Freq: Status: Active Protocol: Document 08/29/23 09:00 DCW (Rec: 08/29/23 13:44 DCW [id number]) Out-Patient Physical Therapy Visit Information Visit Information Visit Type Initial Evaluation Visit Start Time 09:00 Visit Stop Time 09:45 Visit Number 1 Number of ASSISTANT DIRECTOR OF PLANT OPERATIONS Visits 0 Evaluation Information Evaluation Date 08/29/23 PT-OP-B Current Condition Start: 08/29/23 13:35 Freq: Status: Active Protocol: Document 08/29/23 09:00 DCW (Rec: 08/29/23 13:44 [facility] [id number]) Current Condition History of Current Condition Onset Date Five year history Current Complaints Right hip pain, right knee pain, back pain, gait difficulty, weakness History of Current Condition Pt is a 73 year old male presenting with a complex medical history, complaining of right hip/knee pain, weakness, and decreased mobility. Pt first underwent R TKA in 2012, recovery went well, but starting in 2018 began experiencing increased back and hip pain. Underwent back surgeries in 2019 and 2020, and then a hip replacement in 2021. Pt admits that none of these really helped with his pain, and then began experiencing worsening pain again in his right knee. X-rays showed degenerative changes to his patella, unfortunately pt was told there wasn't really anything to do about it. Due to changes in his gait secondary to pain, pt has now begun experiencing more pain in his right hip adductors and right posterior hip. Required assistance from his arms to lift his right leg into the car or into his bed. Did undergo a lumbar injection two weeks ago, which did seem to help a lot of his lumbar and left hip pain. PT-OP-C Subjective Start: 08/29/23 13:35 Freq: Status: Active Protocol: Document 08/29/23 09:00 DCW (Rec: 08/29/23 13:44 [facility] [id number]) OP-PT Subjective Patient Comments Patient Comments I don't think that I've had a day without pain since January,. Patient Questionnaires Lower Extremity Functional Scale LEFS Score 22/80 = 27.5% PT-OP-F Manual Assessment Start: 08/29/23 13:35 Freq: Status: Active Protocol: Document 08/29/23 09:00 DCW (Rec: 08/29/23 16:39 DCW [id number]) Manual Assessments Soft Tissue Assessment Soft Tissue Mobility Assessment Moderate tone R adductors, R hip flexors, R piriformis, R quad, B hamstrings, B ITB Joint Mobility Assessment Joint Mobility Assessment Mild limitations to joint mobility in right hip and knee PT-OP-G Mobility & Gait Start: 08/29/23 13:35 Freq: Status: Active Protocol: Document 08/29/23 09:00 DCW (Rec: 08/29/23 16:39 DCW [id number]) OP Mobility Evaluation Bed Mobility Supine to and from Sit Pt requires use of UE pulling on pant leg to lift right leg into and out of bed Transfers Car Transfers Pt requires use of UE pulling on pant leg to lift right leg into and out of car OP Gait Assessment Comments Gait Comments Pt ambulates with SPC in right UE in order to support R LE, due to it being easier to swing the right leg that way. PT-OP-K Range of Motion Start: 08/29/23 13:35 Freq: Status: Active Protocol: Document 08/29/23 09:00 DCW (Rec: 08/29/23 16:39 DCW [id number]) Knee Goniometric Range of Motion Knee Right Patient Position Supine Flexion Active (degrees) 118 Flexion Passive (degrees) 3 PT-OP-M Strength Start: 08/29/23 13:35 Freq: Status: Active Protocol: Document 08/29/23 09:00 DCW (Rec: 08/29/23 16:39 DCW [id number]) Hip Strength Hip Manual Muscle Testing Right Flexion (L2) 2+ Poor+ Extension (S1) 4+ Good+ Abduction 4- Good- Adduction 4- Good- External Rotation 4 Good Internal Rotation 4 Good Left Flexion (L2) 4 Good Extension (S1) 4+ Good+ Abduction 4 Good Adduction 4 Good External Rotation 4+ Good+ Internal Rotation 4+ Good+ Knee Strength Knee Manual Muscle Testing Right Flexion (S2) 4 Good Extension (L3) 4+ Good+ Left Flexion (S2) 4 Good Extension (L3) 4+ Good+ PT-OP-Q Treatments Start: 08/29/23 13:35 Freq: Status: Active Protocol: Document 08/29/23 09:00 DCW (Rec: 08/29/23 16:39 DCW [id number]) Therapeutic Exercises Supine Exercises ITB Supine Exercise Name ITB stretch /c strap Hamstring Supine Exercise Name Hamstring Stretch /c strap Side bilateral Bridging Supine Exercise Name Bridging PT-OP-T Assessment and Plan Start: 08/29/23 13:35 Freq: Status: Active Protocol: Document 08/29/23 09:00 NAI (Rec: 08/29/23 16:39 [facility] [id number]) Physical Therapy Assessment Rehab Potential Rehabilitation Potential Fair Evaluation Complexity Number of Personal Factors/Comorbidities 3 or More Number of Body Systems Impaired 4 or More Clinical Presentation at Evaluation Evolving Impairments Impairments Activity Tolerance,Functional Activities,Functional Mobility ,Gait,Pain,ROM,Soft Tissue Mobility,Strength,Tone Goals Three Impairment Pt ambulates using ipsilateral SPC (R) antalgic gait E Commerce Merchant Goal (LTG) Pt to demonstrate ability to ambulate with a WNL stride length and no antalgia using left-sided SPC LTG Duration 10/29/23 Two Impairment Pt exhibits right hip flexion MMT of 2+/5 Senior Care Goal (LTG) Pt to increase right hip flexion to at least 3+/5 in order to enable him to lift leg into bed without assistance LTG Duration 10/29/23 One Impairment Pt does not have an appropriate home exercise program Short Term Goal (STG) Pt to be independent and compliant with an appropriate HEP STG Duration 09/28/23 Assessment Summary Assessment Pt presents with multifactorial complaints and multiple recent surgical interventions, including two back surgeries and a CHRISTOS within the last four years. Consistent pain and limited mobility has affected his general gait pattern and LE strength, resulting in increased pain and difficultly during ambulation, mainly right sided. Pt displays increased right tone in his hip flexors, piriformis, hamstring, ITB, and adductors. Pt should benefit from skilled therapeutic intervention focusing on LE strengthening, gait training, proper AD use, increased activity tolerance, STM, and flexibility. Physical Therapy Plan Frequency and Duration Frequency of Treatment 2x/Week Plan of Care Start Date 08/29/23 Plan of Care End Date 10/29/23 Therapeutic Interventions Therapeutic Interventions Home Exercise Program,Joint Mobilizations,Manual Therapy, Neuromuscular Re-education, Patient/Caregiver Education, Self-Care/Home Management,Soft Tissue Mobilization, Therapeutic Activities, Therapeutic Exercises Next Visit Focus/Plan Next Note Type Treatment Note Next Visit Plan Hip strengthening, increased activity tolerance, STM/ flexibility
--- NOTE | 2023-08-29 16:40 | PT.OPPOC ---
Physical, Occupational & Speech Therapy At [facility] Current Diagnoses Stiffness of right hip, not elsewhere classified (08/29/23) Stiffness of right knee, not elsewhere classified (08/29/23) Muscle weakness (generalized) (08/29/23) Other abnormalities of gait and mobility (08/29/23) Presence of right artificial knee joint (08/29/23) Visit Care Team Role Provider Type Maria Luisa Wagoner MD Primary Care Provider Physician Specialty: Internal Medicine Address: [place], [address] Email: Tano Sorenson MD Family Provider Physician Specialty: Internal Medicine Address: [address] [place] [address], [address] Email: Tigre Fong MD Attending Provider Physician Referring Provider Specialty: Orthopedics Orthopedic Surgery Address: [address] [place] [address], [address] Email: [email or web address] Plan Of Care PT-OP-T Assessment and Plan Start: 08/29/23 13:35 Freq: Status: Active Protocol: Document 08/29/23 09:00 DCW (Rec: 08/29/23 16:39 DCW [id number]) Physical Therapy Assessment Rehab Potential Rehabilitation Potential Fair Evaluation Complexity Number of Personal Factors/Comorbidities 3 or More Number of Body Systems Impaired 4 or More Clinical Presentation at Evaluation Evolving Impairments Impairments Activity Tolerance,Functional Activities,Functional Mobility ,Gait,Pain,ROM,Soft Tissue Mobility,Strength,Tone Goals Three Impairment Pt ambulates using ipsilateral SPC (R) antalgic gait Test Engine Operator Goal (LTG) Pt to demonstrate ability to ambulate with a WNL stride length and no antalgia using left-sided SPC LTG Duration 10/29/23 Two Impairment Pt exhibits right hip flexion MMT of 2+/5 Test Engine Operator Goal (LTG) Pt to increase right hip flexion to at least 3+/5 in order to enable him to lift leg into bed without assistance LTG Duration 10/29/23 One Impairment Pt does not have an appropriate home exercise program Short Term Goal (STG) Pt to be independent and compliant with an appropriate HEP STG Duration 09/28/23 Assessment Summary Assessment Pt presents with multifactorial complaints and multiple recent surgical interventions, including two back surgeries and a CHRISTOS within the last four years. Consistent pain and limited mobility has affected his general gait pattern and LE strength, resulting in increased pain and difficultly during ambulation, mainly right sided. Pt displays increased right tone in his hip flexors, piriformis, hamstring, ITB, and adductors. Pt should benefit from skilled therapeutic intervention focusing on LE strengthening, gait training, proper AD use, increased activity tolerance, STM, and flexibility. Physical Therapy Plan Frequency and Duration Frequency of Treatment 2x/Week Plan of Care Start Date 08/29/23 Plan of Care End Date 10/29/23 Therapeutic Interventions Therapeutic Interventions Home Exercise Program,Joint Mobilizations,Manual Therapy, Neuromuscular Re-education, Patient/Caregiver Education, Self-Care/Home Management,Soft Tissue Mobilization, Therapeutic Activities, Therapeutic Exercises Next Visit Focus/Plan Next Note Type Treatment Note Next Visit Plan Hip strengthening, increased activity tolerance, STM/ flexibility Plan of Care Dates Plan of Care Start Date 08/29/23 Plan of Care End Date 10/29/23 Electronically Signed by: Kevan Edmonds, PT 08/29/23 1640 If you are in agreement with this Plan of Care, please return a signed and dated copy. I have reviewed this Plan of Care and certify that the skilled therapy services above are required to meet the patient?s needs. Physician Signature Date Printed Name and Credentials Clinical Instructor Signature Printed Name and Credentials
--- NOTE | 2023-09-02 12:00 | PT.OTN ---
Current Diagnoses Stiffness of right hip, not elsewhere classified (09/02/23) Stiffness of right knee, not elsewhere classified (09/02/23) Muscle weakness (generalized) (09/02/23) Other abnormalities of gait and mobility (09/02/23) Presence of right artificial knee joint (09/02/23) Physical Therapy Treatment Note PT-OP-A Visit Information Start: 08/29/23 13:35 Freq: Status: Active Protocol: Document 09/02/23 11:15 DCW (Rec: 09/02/23 12:00 DCW [id number]) Out-Patient Physical Therapy Visit Information Visit Information Visit Type Treatment Note Visit Start Time 11:15 Visit Stop Time 12:00 Visit Number 2 Number of HUMAN RESOURCES BENEFITS ASSISTANT Visits 0 Evaluation Information Evaluation Date 08/29/23 PT-OP-B Current Condition Start: 08/29/23 13:35 Freq: Status: Active Protocol: Document 08/29/23 09:00 DCW (Rec: 08/29/23 13:44 DCW [id number]) Current Condition History of Current Condition Onset Date Five year history Current Complaints Right hip pain, right knee pain, back pain, gait difficulty, weakness History of Current Condition Pt is a 73 year old male presenting with a complex medical history, complaining of right hip/knee pain, weakness, and decreased mobility. Pt first underwent R TKA in 2012, recovery went well, but starting in 2018 began experiencing increased back and hip pain. Underwent back surgeries in 2019 and 2020, and then a hip replacement in 2021. Pt admits that none of these really helped with his pain, and then began experiencing worsening pain again in his right knee. X-rays showed degenerative changes to his patella, unfortunately pt was told there wasn't really anything to do about it. Due to changes in his gait secondary to pain, pt has now begun experiencing more pain in his right hip adductors and right posterior hip. Required assistance from his arms to lift his right leg into the car or into his bed. Did undergo a lumbar injection two weeks ago, which did seem to help a lot of his lumbar and left hip pain. PT-OP-C Subjective Start: 08/29/23 13:35 Freq: Status: Active Protocol: Document 09/02/23 11:15 DCW (Rec: 09/02/23 12:00 DCW [id number]) OP-PT Subjective Patient Comments Patient Comments Yesterday was really good, but I think that I got a little too into that one stretch. PT-OP-F Manual Assessment Start: 08/29/23 13:35 Freq: Status: Active Protocol: Document 08/29/23 09:00 DCW (Rec: 08/29/23 16:39 DCW [id number]) Manual Assessments Soft Tissue Assessment Soft Tissue Mobility Assessment Moderate tone R adductors, R hip flexors, R piriformis, R quad, B hamstrings, B ITB Joint Mobility Assessment Joint Mobility Assessment Mild limitations to joint mobility in right hip and knee PT-OP-G Mobility & Gait Start: 08/29/23 13:35 Freq: Status: Active Protocol: Document 08/29/23 09:00 DCW (Rec: 08/29/23 16:39 DCW [id number]) OP Mobility Evaluation Bed Mobility Supine to and from Sit Pt requires use of UE pulling on pant leg to lift right leg into and out of bed Transfers Car Transfers Pt requires use of UE pulling on pant leg to lift right leg into and out of car OP Gait Assessment Comments Gait Comments Pt ambulates with SPC in right UE in order to support R LE, due to it being easier to swing the right leg that way. PT-OP-K Range of Motion Start: 08/29/23 13:35 Freq: Status: Active Protocol: Document 08/29/23 09:00 DCW (Rec: 08/29/23 16:39 DCW [id number]) Knee Goniometric Range of Motion Knee Right Patient Position Supine Flexion Active (degrees) 118 Flexion Passive (degrees) 3 PT-OP-M Strength Start: 08/29/23 13:35 Freq: Status: Active Protocol: Document 08/29/23 09:00 DCW (Rec: 08/29/23 16:39 DCW [id number]) Hip Strength Hip Manual Muscle Testing Right Flexion (L2) 2+ Poor+ Extension (S1) 4+ Good+ Abduction 4- Good- Adduction 4- Good- External Rotation 4 Good Internal Rotation 4 Good Left Flexion (L2) 4 Good Extension (S1) 4+ Good+ Abduction 4 Good Adduction 4 Good External Rotation 4+ Good+ Internal Rotation 4+ Good+ Knee Strength Knee Manual Muscle Testing Right Flexion (S2) 4 Good Extension (L3) 4+ Good+ Left Flexion (S2) 4 Good Extension (L3) 4+ Good+ PT-OP-Q Treatments Start: 08/29/23 13:35 Freq: Status: Active Protocol: Document 09/02/23 11:15 DCW (Rec: 09/02/23 12:00 DCW [id number]) Cardio Equipment Recumbent Elliptical (Biodex) Duration (Minutes) 5 Resistance 5 Seat Position 13 Therapeutic Exercises Supine Exercises Clamshell Supine Exercise Name Supine Clamshell Side bilateral Resistance Lv 2 SLR Supine Exercise Name SLR Side bilateral Sidelying Exercises Hip Abduction Sidelying Exercise Name Hip Abduction Side bilateral Standing Exercises Toe-taps Standing Exercise Name Toe-taps Side bilateral Resistance 5# Equipment Used 6 step Step-ups Standing Exercise Name Step-ups Side bilateral Equipment Used 6 step Hip Extension Standing Exercise Name Hip Extension Side bilateral Resistance Green loop Other Exercises Resisted Ambulation Other Exercise Name Resisted Side-stepping Side bilateral Resistance Green loop Neuro Re-Education Treatment Balance Activities Tilt Board Details Tilt Board Comments Lateral weight shift PT-OP-T Assessment and Plan Start: 08/29/23 13:35 Freq: Status: Active Protocol: Document 09/02/23 11:15 DCW (Rec: 09/02/23 12:00 OHW [id number]) Physical Therapy Assessment Impairments Impairments Activity Tolerance,Functional Activities,Functional Mobility ,Gait,Pain,ROM,Soft Tissue Mobility,Strength,Tone Goals Three Impairment Pt ambulates using ipsilateral SPC (R) antalgic gait Hide Dyer Goal (LTG) Pt to demonstrate ability to ambulate with a WNL stride length and no antalgia using left-sided SPC LTG Duration 10/29/23 Two Impairment Pt exhibits right hip flexion MMT of 2+/5 Hide Dyer Goal (LTG) Pt to increase right hip flexion to at least 3+/5 in order to enable him to lift leg into bed without assistance LTG Duration 10/29/23 One Impairment Pt does not have an appropriate home exercise program Short Term Goal (STG) Pt to be independent and compliant with an appropriate HEP STG Duration 09/28/23 Assessment Summary Assessment Good response to treatment today, agreeable to perform most exercises at home. Multiple times stated I can tell that I need this. Is showing some improvement with right hip function, decreased reliance on UEs to lift onto bed. Physical Therapy Plan Frequency and Duration Frequency of Treatment 2x/Week Plan of Care Start Date 08/29/23 Plan of Care End Date 10/29/23 Therapeutic Interventions Therapeutic Interventions Home Exercise Program,Joint Mobilizations,Manual Therapy, Neuromuscular Re-education, Patient/Caregiver Education, Self-Care/Home Management,Soft Tissue Mobilization, Therapeutic Activities, Therapeutic Exercises Next Visit Focus/Plan Next Note Type Treatment Note Next Visit Plan Hip strengthening, increased activity tolerance, STM/ flexibility
--- NOTE | 2023-09-04 11:59 | PT.OTN ---
Current Diagnoses Stiffness of right hip, not elsewhere classified (09/04/23) Stiffness of right knee, not elsewhere classified (09/04/23) Muscle weakness (generalized) (09/04/23) Other abnormalities of gait and mobility (09/04/23) Presence of right artificial knee joint (09/04/23) Physical Therapy Treatment Note PT-OP-A Visit Information Start: 08/29/23 13:35 Freq: Status: Active Protocol: Document 09/04/23 11:15 DCW (Rec: 09/04/23 11:59 DCW [id number]) Out-Patient Physical Therapy Visit Information Visit Information Visit Type Treatment Note Visit Start Time 11:15 Visit Stop Time 12:00 Visit Number 3 Number of ADOBE MAKER Visits 0 Evaluation Information Evaluation Date 08/29/23 PT-OP-B Current Condition Start: 08/29/23 13:35 Freq: Status: Active Protocol: Document 08/29/23 09:00 DCW (Rec: 08/29/23 13:44 DCW [id number]) Current Condition History of Current Condition Onset Date Five year history Current Complaints Right hip pain, right knee pain, back pain, gait difficulty, weakness History of Current Condition Pt is a 73 year old male presenting with a complex medical history, complaining of right hip/knee pain, weakness, and decreased mobility. Pt first underwent R TKA in 2012, recovery went well, but starting in 2018 began experiencing increased back and hip pain. Underwent back surgeries in 2019 and 2020, and then a hip replacement in 2021. Pt admits that none of these really helped with his pain, and then began experiencing worsening pain again in his right knee. X-rays showed degenerative changes to his patella, unfortunately pt was told there wasn't really anything to do about it. Due to changes in his gait secondary to pain, pt has now begun experiencing more pain in his right hip adductors and right posterior hip. Required assistance from his arms to lift his right leg into the car or into his bed. Did undergo a lumbar injection two weeks ago, which did seem to help a lot of his lumbar and left hip pain. PT-OP-C Subjective Start: 08/29/23 13:35 Freq: Status: Active Protocol: Document 09/04/23 11:15 DCW (Rec: 09/04/23 11:59 DCW [id number]) OP-PT Subjective Patient Comments Patient Comments Pt admits that he is still recovering from his last appointment, was pretty sore yesterday. PT-OP-F Manual Assessment Start: 08/29/23 13:35 Freq: Status: Active Protocol: Document 08/29/23 09:00 DCW (Rec: 08/29/23 16:39 DCW [id number]) Manual Assessments Soft Tissue Assessment Soft Tissue Mobility Assessment Moderate tone R adductors, R hip flexors, R piriformis, R quad, B hamstrings, B ITB Joint Mobility Assessment Joint Mobility Assessment Mild limitations to joint mobility in right hip and knee PT-OP-G Mobility & Gait Start: 08/29/23 13:35 Freq: Status: Active Protocol: Document 08/29/23 09:00 DCW (Rec: 08/29/23 16:39 DCW [id number]) OP Mobility Evaluation Bed Mobility Supine to and from Sit Pt requires use of UE pulling on pant leg to lift right leg into and out of bed Transfers Car Transfers Pt requires use of UE pulling on pant leg to lift right leg into and out of car OP Gait Assessment Comments Gait Comments Pt ambulates with SPC in right UE in order to support R LE, due to it being easier to swing the right leg that way. PT-OP-K Range of Motion Start: 08/29/23 13:35 Freq: Status: Active Protocol: Document 08/29/23 09:00 DCW (Rec: 08/29/23 16:39 DCW [id number]) Knee Goniometric Range of Motion Knee Right Patient Position Supine Flexion Active (degrees) 118 Flexion Passive (degrees) 3 PT-OP-M Strength Start: 08/29/23 13:35 Freq: Status: Active Protocol: Document 08/29/23 09:00 DCW (Rec: 08/29/23 16:39 DCW [id number]) Hip Strength Hip Manual Muscle Testing Right Flexion (L2) 2+ Poor+ Extension (S1) 4+ Good+ Abduction 4- Good- Adduction 4- Good- External Rotation 4 Good Internal Rotation 4 Good Left Flexion (L2) 4 Good Extension (S1) 4+ Good+ Abduction 4 Good Adduction 4 Good External Rotation 4+ Good+ Internal Rotation 4+ Good+ Knee Strength Knee Manual Muscle Testing Right Flexion (S2) 4 Good Extension (L3) 4+ Good+ Left Flexion (S2) 4 Good Extension (L3) 4+ Good+ PT-OP-Q Treatments Start: 08/29/23 13:35 Freq: Status: Active Protocol: Document 09/04/23 11:15 DCW (Rec: 09/04/23 11:59 DCW [id number]) Cardio Equipment Recumbent Stepper (Sci-Fit) Duration (Minutes) 5 Resistance 3 Seat Position 14 Gym Equipment Shuttle Recovery Unilateral Squats Resistance 62# Shuttle Recovery Platform Stable Reps/Time x15 Bilateral Squats Resistance 87# Shuttle Recovery Platform Stable Reps/Time x20 Therapeutic Ball Hip Flexion Exercise Details Resisted hip/knee flexion Ball Size/Color Red - 55 cm Lv 3 T-band Body Position Supine LTR Exercise Details LTR Ball Size/Color Red - 55 cm Body Position Hooklying Manual Therapy Treatment Soft Tissue Mobilization Piriformis Body Location R Piriformis, Glute Mobilization Type Strumming,Sustained Pressure Body Position Sidelying PT-OP-T Assessment and Plan Start: 08/29/23 13:35 Freq: Status: Active Protocol: Document 09/04/23 11:15 DCW (Rec: 09/04/23 11:59 DCW [id number]) Physical Therapy Assessment Impairments Impairments Activity Tolerance,Functional Activities,Functional Mobility ,Gait,Pain,ROM,Soft Tissue Mobility,Strength,Tone Goals Three Impairment Pt ambulates using ipsilateral SPC (R) antalgic gait Assembler Camper Goal (LTG) Pt to demonstrate ability to ambulate with a WNL stride length and no antalgia using left-sided SPC LTG Duration 10/29/23 Two Impairment Pt exhibits right hip flexion MMT of 2+/5 Assembler Camper Goal (LTG) Pt to increase right hip flexion to at least 3+/5 in order to enable him to lift leg into bed without assistance LTG Duration 10/29/23 One Impairment Pt does not have an appropriate home exercise program Short Term Goal (STG) Pt to be independent and compliant with an appropriate HEP STG Duration 09/28/23 Assessment Summary Assessment Tolerated treatment well today , attempted to decrease difficulty a little secondary to extended period of recovery time, reassess next visit to determine how well pt is recovering. Physical Therapy Plan Frequency and Duration Frequency of Treatment 2x/Week Plan of Care Start Date 08/29/23 Plan of Care End Date 10/29/23 Therapeutic Interventions Therapeutic Interventions Home Exercise Program,Joint Mobilizations,Manual Therapy, Neuromuscular Re-education, Patient/Caregiver Education, Self-Care/Home Management,Soft Tissue Mobilization, Therapeutic Activities, Therapeutic Exercises Next Visit Focus/Plan Next Note Type Treatment Note Next Visit Plan Hip strengthening, increased activity tolerance, STM/ flexibility
--- NOTE | 2023-09-09 13:11 | PT.OTN ---
Current Diagnoses Stiffness of right hip, not elsewhere classified (09/09/23) Stiffness of right knee, not elsewhere classified (09/09/23) Muscle weakness (generalized) (09/09/23) Other abnormalities of gait and mobility (09/09/23) Presence of right artificial knee joint (09/09/23) Physical Therapy Treatment Note PT-OP-A Visit Information Start: 08/29/23 13:35 Freq: Status: Active Protocol: Document 09/09/23 11:10 SW (Rec: 09/09/23 12:07 SW [id number]) Out-Patient Physical Therapy Visit Information Visit Information Visit Type Treatment Note Visit Start Time 11:15 Visit Stop Time 11:55 Visit Number 4 Number of MARINE STEAMFITTER Visits 1 PT-OP-B Current Condition Start: 08/29/23 13:35 Freq: Status: Active Protocol: Document 08/29/23 09:00 DCW (Rec: 08/29/23 13:44 DCW [id number]) Current Condition History of Current Condition Onset Date Five year history Current Complaints Right hip pain, right knee pain, back pain, gait difficulty, weakness History of Current Condition Pt is a 73 year old male presenting with a complex medical history, complaining of right hip/knee pain, weakness, and decreased mobility. Pt first underwent R TKA in 2012, recovery went well, but starting in 2018 began experiencing increased back and hip pain. Underwent back surgeries in 2019 and 2020, and then a hip replacement in 2021. Pt admits that none of these really helped with his pain, and then began experiencing worsening pain again in his right knee. X-rays showed degenerative changes to his patella, unfortunately pt was told there wasn't really anything to do about it. Due to changes in his gait secondary to pain, pt has now begun experiencing more pain in his right hip adductors and right posterior hip. Required assistance from his arms to lift his right leg into the car or into his bed. Did undergo a lumbar injection two weeks ago, which did seem to help a lot of his lumbar and left hip pain. PT-OP-C Subjective Start: 08/29/23 13:35 Freq: Status: Active Protocol: Document 09/09/23 11:10 SW (Rec: 09/09/23 12:07 SW [id number]) OP-PT Subjective Patient Comments Patient Comments Pt reports pain level 5/6 out of 10. Pt reports better tolerance to last session, sore for x1 day after. PT-OP-F Manual Assessment Start: 08/29/23 13:35 Freq: Status: Active Protocol: Document 08/29/23 09:00 DCW (Rec: 08/29/23 16:39 DCW [id number]) Manual Assessments Soft Tissue Assessment Soft Tissue Mobility Assessment Moderate tone R adductors, R hip flexors, R piriformis, R quad, B hamstrings, B ITB Joint Mobility Assessment Joint Mobility Assessment Mild limitations to joint mobility in right hip and knee PT-OP-G Mobility & Gait Start: 08/29/23 13:35 Freq: Status: Active Protocol: Document 08/29/23 09:00 DCW (Rec: 08/29/23 16:39 DCW [id number]) OP Mobility Evaluation Bed Mobility Supine to and from Sit Pt requires use of UE pulling on pant leg to lift right leg into and out of bed Transfers Car Transfers Pt requires use of UE pulling on pant leg to lift right leg into and out of car OP Gait Assessment Comments Gait Comments Pt ambulates with SPC in right UE in order to support R LE, due to it being easier to swing the right leg that way. PT-OP-K Range of Motion Start: 08/29/23 13:35 Freq: Status: Active Protocol: Document 08/29/23 09:00 DCW (Rec: 08/29/23 16:39 DCW [id number]) Knee Goniometric Range of Motion Knee Right Patient Position Supine Flexion Active (degrees) 118 Flexion Passive (degrees) 3 PT-OP-M Strength Start: 08/29/23 13:35 Freq: Status: Active Protocol: Document 08/29/23 09:00 DCW (Rec: 08/29/23 16:39 DCW [id number]) Hip Strength Hip Manual Muscle Testing Right Flexion (L2) 2+ Poor+ Extension (S1) 4+ Good+ Abduction 4- Good- Adduction 4- Good- External Rotation 4 Good Internal Rotation 4 Good Left Flexion (L2) 4 Good Extension (S1) 4+ Good+ Abduction 4 Good Adduction 4 Good External Rotation 4+ Good+ Internal Rotation 4+ Good+ Knee Strength Knee Manual Muscle Testing Right Flexion (S2) 4 Good Extension (L3) 4+ Good+ Left Flexion (S2) 4 Good Extension (L3) 4+ Good+ PT-OP-Q Treatments Start: 08/29/23 13:35 Freq: Status: Active Protocol: Document 09/09/23 11:10 SW (Rec: 09/09/23 12:07 [id number]) Gym Equipment Shuttle Recovery Unilateral Squats Resistance 62# Shuttle Recovery Platform Stable Reps/Time x15 Bilateral Squats Details discomfort in medial knee relieved with verbal/tactile cues for alignment Resistance 87# Shuttle Recovery Platform Stable Reps/Time x20 Therapeutic Ball Hip Flexion Exercise Details Resisted hip/knee flexion Ball Size/Color Red - 55 cm Lv 3 T-band Body Position Supine LTR Exercise Details LTR Ball Size/Color Red - 55 cm Body Position Hooklying Therapeutic Exercises Sidelying Exercises Hip Abduction Sidelying Exercise Name discontinued on HEP (pt doing standing resisted Abd) Sitting Exercises Hip flexion Sitting Exercise Name Hip/knee flexion (issued HEP) Side bilateral Resistance Level 3 Comments cues for alignment, pain free Standing Exercises Hip Abd Standing Exercise Name standing hip abd Side bilateral Resistance level 3 Reps/Minutes 3x10 Hip Extension Standing Exercise Name Hip Extension Side bilateral Resistance Green loop Other Exercises Resisted Ambulation Other Exercise Name Resisted Side-stepping Side bilateral Resistance Green loop Manual Therapy Treatment Soft Tissue Mobilization Piriformis Body Location R Piriformis, Glute Mobilization Type Strumming,Sustained Pressure Body Position Sidelying PT-OP-T Assessment and Plan Start: 08/29/23 13:35 Freq: Status: Active Protocol: Document 09/09/23 11:10 SW (Rec: 09/09/23 12:07 [id number]) Physical Therapy Assessment Goals Three Impairment Pt ambulates using ipsilateral SPC (R) antalgic gait Office Services Representative Goal (LTG) Pt to demonstrate ability to ambulate with a WNL stride length and no antalgia using left-sided SPC LTG Duration 10/29/23 Two Impairment Pt exhibits right hip flexion MMT of 2+/5 Care Home Goal (LTG) Pt to increase right hip flexion to at least 3+/5 in order to enable him to lift leg into bed without assistance LTG Duration 10/29/23 One Impairment Pt does not have an appropriate home exercise program Short Term Goal (STG) Pt to be independent and compliant with an appropriate HEP STG Duration 09/28/23 Assessment Summary Assessment Pt tolerated session well. Pt reports medial knee pain has been increasing, pt c/o medial knee pain during shuttle recover this session, verbal and tactile cues for alignment , pt reports no pain with correct alignment during exercise. Continued manual therapy this session, pt reported improvement in symptoms post, when standing after manual therapy and supine exercises. Good tolerance to todays session, plan to assess tolerance post and progress as able. Physical Therapy Plan Frequency and Duration Frequency of Treatment 2x/Week Plan of Care Start Date 08/29/23 Plan of Care End Date 10/29/23 Therapeutic Interventions Therapeutic Interventions Home Exercise Program,Joint Mobilizations,Manual Therapy, Neuromuscular Re-education, Patient/Caregiver Education, Self-Care/Home Management,Soft Tissue Mobilization, Therapeutic Activities, Therapeutic Exercises Next Visit Focus/Plan Next Note Type Progress Note Next Visit Plan Hip strengthening, increased activity tolerance, STM/ flexibility
--- NOTE | 2023-09-11 11:59 | PT.OTN ---
Current Diagnoses Stiffness of right hip, not elsewhere classified (09/11/23) Stiffness of right knee, not elsewhere classified (09/11/23) Muscle weakness (generalized) (09/11/23) Other abnormalities of gait and mobility (09/11/23) Presence of right artificial knee joint (09/11/23) Physical Therapy Treatment Note PT-OP-A Visit Information Start: 08/29/23 13:35 Freq: Status: Active Protocol: Document 09/11/23 11:15 DCW (Rec: 09/11/23 11:59 DCW [id number]) Out-Patient Physical Therapy Visit Information Visit Information Visit Type Treatment Note Visit Start Time 11:15 Visit Stop Time 12:00 Visit Number 5 Number of DRIER TAKE OFF TENDER Visits 0 Evaluation Information Evaluation Date 08/29/23 PT-OP-B Current Condition Start: 08/29/23 13:35 Freq: Status: Active Protocol: Document 08/29/23 09:00 DCW (Rec: 08/29/23 13:44 DCW [id number]) Current Condition History of Current Condition Onset Date Five year history Current Complaints Right hip pain, right knee pain, back pain, gait difficulty, weakness History of Current Condition Pt is a 73 year old male presenting with a complex medical history, complaining of right hip/knee pain, weakness, and decreased mobility. Pt first underwent R TKA in 2012, recovery went well, but starting in 2018 began experiencing increased back and hip pain. Underwent back surgeries in 2019 and 2020, and then a hip replacement in 2021. Pt admits that none of these really helped with his pain, and then began experiencing worsening pain again in his right knee. X-rays showed degenerative changes to his patella, unfortunately pt was told there wasn't really anything to do about it. Due to changes in his gait secondary to pain, pt has now begun experiencing more pain in his right hip adductors and right posterior hip. Required assistance from his arms to lift his right leg into the car or into his bed. Did undergo a lumbar injection two weeks ago, which did seem to help a lot of his lumbar and left hip pain. PT-OP-C Subjective Start: 08/29/23 13:35 Freq: Status: Active Protocol: Document 09/11/23 11:15 DCW (Rec: 09/11/23 11:59 DCW [id number]) OP-PT Subjective Patient Comments Patient Comments I'm sore today, but I kind of abused myself last night working on my back. PT-OP-F Manual Assessment Start: 08/29/23 13:35 Freq: Status: Active Protocol: Document 08/29/23 09:00 DCW (Rec: 08/29/23 16:39 DCW [id number]) Manual Assessments Soft Tissue Assessment Soft Tissue Mobility Assessment Moderate tone R adductors, R hip flexors, R piriformis, R quad, B hamstrings, B ITB Joint Mobility Assessment Joint Mobility Assessment Mild limitations to joint mobility in right hip and knee PT-OP-G Mobility & Gait Start: 08/29/23 13:35 Freq: Status: Active Protocol: Document 08/29/23 09:00 DCW (Rec: 08/29/23 16:39 DCW [id number]) OP Mobility Evaluation Bed Mobility Supine to and from Sit Pt requires use of UE pulling on pant leg to lift right leg into and out of bed Transfers Car Transfers Pt requires use of UE pulling on pant leg to lift right leg into and out of car OP Gait Assessment Comments Gait Comments Pt ambulates with SPC in right UE in order to support R LE, due to it being easier to swing the right leg that way. PT-OP-K Range of Motion Start: 08/29/23 13:35 Freq: Status: Active Protocol: Document 08/29/23 09:00 DCW (Rec: 08/29/23 16:39 DCW [id number]) Knee Goniometric Range of Motion Knee Right Patient Position Supine Flexion Active (degrees) 118 Flexion Passive (degrees) 3 PT-OP-M Strength Start: 08/29/23 13:35 Freq: Status: Active Protocol: Document 08/29/23 09:00 DCW (Rec: 08/29/23 16:39 DCW [id number]) Hip Strength Hip Manual Muscle Testing Right Flexion (L2) 2+ Poor+ Extension (S1) 4+ Good+ Abduction 4- Good- Adduction 4- Good- External Rotation 4 Good Internal Rotation 4 Good Left Flexion (L2) 4 Good Extension (S1) 4+ Good+ Abduction 4 Good Adduction 4 Good External Rotation 4+ Good+ Internal Rotation 4+ Good+ Knee Strength Knee Manual Muscle Testing Right Flexion (S2) 4 Good Extension (L3) 4+ Good+ Left Flexion (S2) 4 Good Extension (L3) 4+ Good+ PT-OP-Q Treatments Start: 08/29/23 13:35 Freq: Status: Active Protocol: Document 09/11/23 11:15 DCW (Rec: 09/11/23 11:59 DCW [id number]) Cardio Equipment Recumbent Elliptical (Biodex) Duration (Minutes) 5 Resistance 5 Seat Position 13 Gym Equipment Shuttle Recovery Unilateral Squats Resistance 62# Shuttle Recovery Platform Stable Reps/Time x15 Bilateral Squats Details discomfort in medial knee relieved with verbal/tactile cues for alignment Resistance 100# (Three new) Shuttle Recovery Platform Stable Reps/Time x20 Shuttle Balance red clips Details WBOS, Staggered, Lateral weight shift Therapeutic Ball Bridging Exercise Details Bridging /c feet on ball Ball Size/Color Red - 55 cm Hip Flexion Exercise Details Resisted hip/knee flexion Ball Size/Color Red - 55 cm Lv 3 T-band Body Position Supine Therapeutic Exercises Other Exercises Resisted Ambulation Other Exercise Name Resisted Side-stepping Side bilateral Resistance Green loop PT-OP-T Assessment and Plan Start: 08/29/23 13:35 Freq: Status: Active Protocol: Document 09/11/23 11:15 DCW (Rec: 09/11/23 11:59 DCW [id number]) Physical Therapy Assessment Impairments Impairments Activity Tolerance,Functional Activities,Functional Mobility ,Gait,Pain,ROM,Soft Tissue Mobility,Strength,Tone Goals Three Impairment Pt ambulates using ipsilateral SPC (R) antalgic gait Senior Living Goal (LTG) Pt to demonstrate ability to ambulate with a WNL stride length and no antalgia using left-sided SPC LTG Duration 10/29/23 Two Impairment Pt exhibits right hip flexion MMT of 2+/5 Watch Parts Grinder Goal (LTG) Pt to increase right hip flexion to at least 3+/5 in order to enable him to lift leg into bed without assistance LTG Duration 10/29/23 One Impairment Pt does not have an appropriate home exercise program Short Term Goal (STG) Pt to be independent and compliant with an appropriate HEP STG Duration 09/28/23 Assessment Summary Assessment Pt tolerated fairly well, new activity bridging on T-ball pt admitted was fairly difficult . Pt to continue with current HEP. Physical Therapy Plan Frequency and Duration Frequency of Treatment 2x/Week Plan of Care Start Date 08/29/23 Plan of Care End Date 10/29/23 Therapeutic Interventions Therapeutic Interventions Home Exercise Program,Joint Mobilizations,Manual Therapy, Neuromuscular Re-education, Patient/Caregiver Education, Self-Care/Home Management,Soft Tissue Mobilization, Therapeutic Activities, Therapeutic Exercises Next Visit Focus/Plan Next Note Type Progress Note Next Visit Plan Hip strengthening, increased activity tolerance, STM/ flexibility
--- NOTE | 2023-09-18 12:44 | PT.OTN ---
Current Diagnoses Stiffness of right hip, not elsewhere classified (09/18/23) Stiffness of right knee, not elsewhere classified (09/18/23) Muscle weakness (generalized) (09/18/23) Other abnormalities of gait and mobility (09/18/23) Presence of right artificial knee joint (09/18/23) Physical Therapy Treatment Note PT-OP-A Visit Information Start: 08/29/23 13:35 Freq: Status: Active Protocol: Document 09/18/23 12:00 DCW (Rec: 09/18/23 12:44 DCW [id number]) Out-Patient Physical Therapy Visit Information Visit Information Visit Type Treatment Note Visit Start Time 12:00 Visit Stop Time 12:45 Visit Number 6 Number of CAREER DEVELOPMENT COUNSELOR Visits 0 Evaluation Information Evaluation Date 08/29/23 PT-OP-B Current Condition Start: 08/29/23 13:35 Freq: Status: Active Protocol: Document 08/29/23 09:00 DCW (Rec: 08/29/23 13:44 DCW [id number]) Current Condition History of Current Condition Onset Date Five year history Current Complaints Right hip pain, right knee pain, back pain, gait difficulty, weakness History of Current Condition Pt is a 73 year old male presenting with a complex medical history, complaining of right hip/knee pain, weakness, and decreased mobility. Pt first underwent R TKA in 2012, recovery went well, but starting in 2018 began experiencing increased back and hip pain. Underwent back surgeries in 2019 and 2020, and then a hip replacement in 2021. Pt admits that none of these really helped with his pain, and then began experiencing worsening pain again in his right knee. X-rays showed degenerative changes to his patella, unfortunately pt was told there wasn't really anything to do about it. Due to changes in his gait secondary to pain, pt has now begun experiencing more pain in his right hip adductors and right posterior hip. Required assistance from his arms to lift his right leg into the car or into his bed. Did undergo a lumbar injection two weeks ago, which did seem to help a lot of his lumbar and left hip pain. PT-OP-C Subjective Start: 08/29/23 13:35 Freq: Status: Active Protocol: Document 09/18/23 12:00 DCW (Rec: 09/18/23 12:44 DCW [id number]) OP-PT Subjective Patient Comments Patient Comments Pt reports that he is feeling better overall, right hip is doing much better, but notes worsening right knee pain, and some increased soreness occasionally in low back. Comes in today without a cane, feels increased confidence with stability. PT-OP-F Manual Assessment Start: 08/29/23 13:35 Freq: Status: Active Protocol: Document 08/29/23 09:00 DCW (Rec: 08/29/23 16:39 DCW [id number]) Manual Assessments Soft Tissue Assessment Soft Tissue Mobility Assessment Moderate tone R adductors, R hip flexors, R piriformis, R quad, B hamstrings, B ITB Joint Mobility Assessment Joint Mobility Assessment Mild limitations to joint mobility in right hip and knee PT-OP-G Mobility & Gait Start: 08/29/23 13:35 Freq: Status: Active Protocol: Document 08/29/23 09:00 DCW (Rec: 08/29/23 16:39 DCW [id number]) OP Mobility Evaluation Bed Mobility Supine to and from Sit Pt requires use of UE pulling on pant leg to lift right leg into and out of bed Transfers Car Transfers Pt requires use of UE pulling on pant leg to lift right leg into and out of car OP Gait Assessment Comments Gait Comments Pt ambulates with SPC in right UE in order to support R LE, due to it being easier to swing the right leg that way. PT-OP-K Range of Motion Start: 08/29/23 13:35 Freq: Status: Active Protocol: Document 08/29/23 09:00 DCW (Rec: 08/29/23 16:39 DCW [id number]) Knee Goniometric Range of Motion Knee Right Patient Position Supine Flexion Active (degrees) 118 Flexion Passive (degrees) 3 PT-OP-M Strength Start: 08/29/23 13:35 Freq: Status: Active Protocol: Document 08/29/23 09:00 DCW (Rec: 08/29/23 16:39 DCW [id number]) Hip Strength Hip Manual Muscle Testing Right Flexion (L2) 2+ Poor+ Extension (S1) 4+ Good+ Abduction 4- Good- Adduction 4- Good- External Rotation 4 Good Internal Rotation 4 Good Left Flexion (L2) 4 Good Extension (S1) 4+ Good+ Abduction 4 Good Adduction 4 Good External Rotation 4+ Good+ Internal Rotation 4+ Good+ Knee Strength Knee Manual Muscle Testing Right Flexion (S2) 4 Good Extension (L3) 4+ Good+ Left Flexion (S2) 4 Good Extension (L3) 4+ Good+ PT-OP-Q Treatments Start: 08/29/23 13:35 Freq: Status: Active Protocol: Document 09/18/23 12:00 DCW (Rec: 09/18/23 12:44 DCW [id number]) Cardio Equipment Recumbent Elliptical (Biodex) Duration (Minutes) 6 Resistance 5 Seat Position 13 Gym Equipment Shuttle Recovery Unilateral Squats Resistance 62# (Two new) Shuttle Recovery Platform Stable Reps/Time x15 Bilateral Squats Resistance 100# (Three new) Shuttle Recovery Platform Stable Reps/Time x20 Shuttle Balance red clips Details WBOS, Staggered, Lateral weight shift Therapeutic Ball Pelvic tilts Exercise Details Pelvic tilts, pelvic circles Ball Size/Color Green - 65 cm Body Position seated Bridging Comments D/c due to increased pain afterward Therapeutic Exercises Supine Exercises Bridging Comments D/c due to increased pain afterward Manual Therapy Treatment Soft Tissue Mobilization Piriformis Body Location R Piriformis, Glute Mobilization Type Strumming,Sustained Pressure Body Position Sidelying PT-OP-T Assessment and Plan Start: 08/29/23 13:35 Freq: Status: Active Protocol: Document 09/18/23 12:00 DCW (Rec: 09/18/23 12:44 DCW [id number]) Physical Therapy Assessment Impairments Impairments Activity Tolerance,Functional Activities,Functional Mobility ,Gait,Pain,ROM,Soft Tissue Mobility,Strength,Tone Goals Three Impairment Pt ambulates using ipsilateral SPC (R) antalgic gait Shelter Goal (LTG) Pt to demonstrate ability to ambulate with a WNL stride length and no antalgia using left-sided SPC LTG Duration 10/29/23 Two Impairment Pt exhibits right hip flexion MMT of 2+/5 Shelter Goal (LTG) Pt to increase right hip flexion to at least 3+/5 in order to enable him to lift leg into bed without assistance LTG Duration 10/29/23 One Impairment Pt does not have an appropriate home exercise program Short Term Goal (STG) Pt to be independent and compliant with an appropriate HEP STG Duration 09/28/23 Assessment Summary Assessment D/C'ed bridging activities due to pt reports of continuing pain after exercise. Pt much better with right hip mobility , did spend some extra time today working on lumbar STM due to pt complaints of worsening stiffness. Physical Therapy Plan Frequency and Duration Frequency of Treatment 2x/Week Plan of Care Start Date 08/29/23 Plan of Care End Date 10/29/23 Therapeutic Interventions Therapeutic Interventions Home Exercise Program,Joint Mobilizations,Manual Therapy, Neuromuscular Re-education, Patient/Caregiver Education, Self-Care/Home Management,Soft Tissue Mobilization, Therapeutic Activities, Therapeutic Exercises Next Visit Focus/Plan Next Note Type Treatment Note Next Visit Plan Hip strengthening, increased activity tolerance, STM/ flexibility
--- NOTE | 2023-09-23 17:34 | PT.OTN ---
Current Diagnoses Stiffness of right hip, not elsewhere classified (09/23/23) Stiffness of right knee, not elsewhere classified (09/23/23) Muscle weakness (generalized) (09/23/23) Other abnormalities of gait and mobility (09/23/23) Presence of right artificial knee joint (09/23/23) Physical Therapy Treatment Note PT-OP-A Visit Information Start: 08/29/23 13:35 Freq: Status: Active Protocol: Document 09/23/23 16:45 DCW (Rec: 09/23/23 17:34 DCW [id number]) Out-Patient Physical Therapy Visit Information Visit Information Visit Type Treatment Note Visit Start Time 16:45 Visit Stop Time 17:30 Visit Number 7 Number of NATIONAL SECRETARY Visits 0 Evaluation Information Evaluation Date 08/29/23 PT-OP-B Current Condition Start: 08/29/23 13:35 Freq: Status: Active Protocol: Document 08/29/23 09:00 DCW (Rec: 08/29/23 13:44 DCW [id number]) Current Condition History of Current Condition Onset Date Five year history Current Complaints Right hip pain, right knee pain, back pain, gait difficulty, weakness History of Current Condition Pt is a 73 year old male presenting with a complex medical history, complaining of right hip/knee pain, weakness, and decreased mobility. Pt first underwent R TKA in 2012, recovery went well, but starting in 2018 began experiencing increased back and hip pain. Underwent back surgeries in 2019 and 2020, and then a hip replacement in 2021. Pt admits that none of these really helped with his pain, and then began experiencing worsening pain again in his right knee. X-rays showed degenerative changes to his patella, unfortunately pt was told there wasn't really anything to do about it. Due to changes in his gait secondary to pain, pt has now begun experiencing more pain in his right hip adductors and right posterior hip. Required assistance from his arms to lift his right leg into the car or into his bed. Did undergo a lumbar injection two weeks ago, which did seem to help a lot of his lumbar and left hip pain. PT-OP-C Subjective Start: 08/29/23 13:35 Freq: Status: Active Protocol: Document 09/23/23 16:45 DCW (Rec: 09/23/23 17:34 DCW [id number]) OP-PT Subjective Patient Comments Patient Comments Things are going really well, this leg (right) that was the main problem is doing well. Does note that his right knee is still bothering him. PT-OP-F Manual Assessment Start: 08/29/23 13:35 Freq: Status: Active Protocol: Document 08/29/23 09:00 DCW (Rec: 08/29/23 16:39 DCW [id number]) Manual Assessments Soft Tissue Assessment Soft Tissue Mobility Assessment Moderate tone R adductors, R hip flexors, R piriformis, R quad, B hamstrings, B ITB Joint Mobility Assessment Joint Mobility Assessment Mild limitations to joint mobility in right hip and knee PT-OP-G Mobility & Gait Start: 08/29/23 13:35 Freq: Status: Active Protocol: Document 08/29/23 09:00 DCW (Rec: 08/29/23 16:39 DCW [id number]) OP Mobility Evaluation Bed Mobility Supine to and from Sit Pt requires use of UE pulling on pant leg to lift right leg into and out of bed Transfers Car Transfers Pt requires use of UE pulling on pant leg to lift right leg into and out of car OP Gait Assessment Comments Gait Comments Pt ambulates with SPC in right UE in order to support R LE, due to it being easier to swing the right leg that way. PT-OP-K Range of Motion Start: 08/29/23 13:35 Freq: Status: Active Protocol: Document 08/29/23 09:00 DCW (Rec: 08/29/23 16:39 DCW [id number]) Knee Goniometric Range of Motion Knee Right Patient Position Supine Flexion Active (degrees) 118 Flexion Passive (degrees) 3 PT-OP-M Strength Start: 08/29/23 13:35 Freq: Status: Active Protocol: Document 08/29/23 09:00 DCW (Rec: 08/29/23 16:39 DCW [id number]) Hip Strength Hip Manual Muscle Testing Right Flexion (L2) 2+ Poor+ Extension (S1) 4+ Good+ Abduction 4- Good- Adduction 4- Good- External Rotation 4 Good Internal Rotation 4 Good Left Flexion (L2) 4 Good Extension (S1) 4+ Good+ Abduction 4 Good Adduction 4 Good External Rotation 4+ Good+ Internal Rotation 4+ Good+ Knee Strength Knee Manual Muscle Testing Right Flexion (S2) 4 Good Extension (L3) 4+ Good+ Left Flexion (S2) 4 Good Extension (L3) 4+ Good+ PT-OP-Q Treatments Start: 08/29/23 13:35 Freq: Status: Active Protocol: Document 09/23/23 16:45 DCW (Rec: 09/23/23 17:34 DCW [id number]) Cardio Equipment Recumbent Elliptical (Biodex) Duration (Minutes) 5 Resistance 8 Seat Position 12 Therapeutic Exercises Supine Exercises LTR Supine Exercise Name LTR Sitting Exercises Ankle Flexion Sitting Exercise Name 4-way ankle flexion Side bilateral Resistance Lv 3 Standing Exercises Pallof Press Standing Exercise Name Pallof Press Side bilateral Resistance Blue Calf Stretch Standing Exercise Name Calf Stretch Side bilateral Equipment Used THAO Manual Therapy Treatment Soft Tissue Mobilization Knee Body Location R distal HS, Proximal Calf Joint Mobilizations Knee Joint R knee Direction P<->A Grade III PT-OP-T Assessment and Plan Start: 08/29/23 13:35 Freq: Status: Active Protocol: Document 09/23/23 16:45 DCW (Rec: 09/23/23 17:34 DCW [id number]) Physical Therapy Assessment Impairments Impairments Activity Tolerance,Functional Activities,Functional Mobility ,Gait,Pain,ROM,Soft Tissue Mobility,Strength,Tone Goals Three Impairment Pt ambulates using ipsilateral SPC (R) antalgic gait Online Banking Specialist Goal (LTG) Pt to demonstrate ability to ambulate with a WNL stride length and no antalgia using left-sided SPC LTG Duration 10/29/23 Two Impairment Pt exhibits right hip flexion MMT of 2+/5 Longterm Goal (LTG) Pt to increase right hip flexion to at least 3+/5 in order to enable him to lift leg into bed without assistance LTG Duration 10/29/23 One Impairment Pt does not have an appropriate home exercise program Short Term Goal (STG) Pt to be independent and compliant with an appropriate HEP STG Duration 09/28/23 Assessment Summary Assessment Pt noted his knee wasn't as bad following STM/joint mobilizations, agreeable for addition of 4-way ankle flexion to HEP. Good response to new activities. Physical Therapy Plan Frequency and Duration Frequency of Treatment 2x/Week Plan of Care Start Date 08/29/23 Plan of Care End Date 10/29/23 Therapeutic Interventions Therapeutic Interventions Home Exercise Program,Joint Mobilizations,Manual Therapy, Neuromuscular Re-education, Patient/Caregiver Education, Self-Care/Home Management,Soft Tissue Mobilization, Therapeutic Activities, Therapeutic Exercises Next Visit Focus/Plan Next Note Type Treatment Note Next Visit Plan Hip strengthening, increased activity tolerance, STM/ flexibility
--- NOTE | 2023-09-25 10:30 | PT.OTN ---
Current Diagnoses Stiffness of right hip, not elsewhere classified (09/25/23) Stiffness of right knee, not elsewhere classified (09/25/23) Muscle weakness (generalized) (09/25/23) Other abnormalities of gait and mobility (09/25/23) Presence of right artificial knee joint (09/25/23) Physical Therapy Treatment Note PT-OP-A Visit Information Start: 08/29/23 13:35 Freq: Status: Active Protocol: Document 09/25/23 09:51 SP (Rec: 09/25/23 10:37 SP [id number]) Out-Patient Physical Therapy Visit Information Visit Information Visit Type Treatment Note Visit Start Time 09:51 Visit Stop Time 10:30 Visit Number 8 Number of ORDER ENTRY TECHNICIAN Visits 1 Evaluation Information Evaluation Date 08/29/23 PT-OP-B Current Condition Start: 08/29/23 13:35 Freq: Status: Active Protocol: Document 08/29/23 09:00 DCW (Rec: 08/29/23 13:44 DCW [id number]) Current Condition History of Current Condition Onset Date Five year history Current Complaints Right hip pain, right knee pain, back pain, gait difficulty, weakness History of Current Condition Pt is a 73 year old male presenting with a complex medical history, complaining of right hip/knee pain, weakness, and decreased mobility. Pt first underwent R TKA in 2012, recovery went well, but starting in 2018 began experiencing increased back and hip pain. Underwent back surgeries in 2019 and 2020, and then a hip replacement in 2021. Pt admits that none of these really helped with his pain, and then began experiencing worsening pain again in his right knee. X-rays showed degenerative changes to his patella, unfortunately pt was told there wasn't really anything to do about it. Due to changes in his gait secondary to pain, pt has now begun experiencing more pain in his right hip adductors and right posterior hip. Required assistance from his arms to lift his right leg into the car or into his bed. Did undergo a lumbar injection two weeks ago, which did seem to help a lot of his lumbar and left hip pain. PT-OP-C Subjective Start: 08/29/23 13:35 Freq: Status: Active Protocol: Document 09/25/23 09:51 SP (Rec: 09/25/23 10:37 SP [id number]) OP-PT Subjective Patient Comments Patient Comments Pt reports was pretty sore after last tx but also was on his boat previous to tx and thinking maybe was alot for his knees/hips. Today arrives with lateral L thigh discomfort too, tried rolling pin which didn't seem help reduce and didn't know which UE use cane in, not arrive with today. He also trying to figure out why back hurts when wearing his belt, even physician unsure. Sees Dr Ndiaye later September to discuss alternative pain managment. PT-OP-F Manual Assessment Start: 08/29/23 13:35 Freq: Status: Active Protocol: Document 08/29/23 09:00 DCW (Rec: 08/29/23 16:39 DCW [id number]) Manual Assessments Soft Tissue Assessment Soft Tissue Mobility Assessment Moderate tone R adductors, R hip flexors, R piriformis, R quad, B hamstrings, B ITB Joint Mobility Assessment Joint Mobility Assessment Mild limitations to joint mobility in right hip and knee PT-OP-G Mobility & Gait Start: 08/29/23 13:35 Freq: Status: Active Protocol: Document 08/29/23 09:00 DCW (Rec: 08/29/23 16:39 DCW [id number]) OP Mobility Evaluation Bed Mobility Supine to and from Sit Pt requires use of UE pulling on pant leg to lift right leg into and out of bed Transfers Car Transfers Pt requires use of UE pulling on pant leg to lift right leg into and out of car OP Gait Assessment Comments Gait Comments Pt ambulates with SPC in right UE in order to support R LE, due to it being easier to swing the right leg that way. PT-OP-K Range of Motion Start: 08/29/23 13:35 Freq: Status: Active Protocol: Document 08/29/23 09:00 DCW (Rec: 08/29/23 16:39 DCW [id number]) Knee Goniometric Range of Motion Knee Right Patient Position Supine Flexion Active (degrees) 118 Flexion Passive (degrees) 3 PT-OP-M Strength Start: 08/29/23 13:35 Freq: Status: Active Protocol: Document 08/29/23 09:00 DCW (Rec: 08/29/23 16:39 DCW [id number]) Hip Strength Hip Manual Muscle Testing Right Flexion (L2) 2+ Poor+ Extension (S1) 4+ Good+ Abduction 4- Good- Adduction 4- Good- External Rotation 4 Good Internal Rotation 4 Good Left Flexion (L2) 4 Good Extension (S1) 4+ Good+ Abduction 4 Good Adduction 4 Good External Rotation 4+ Good+ Internal Rotation 4+ Good+ Knee Strength Knee Manual Muscle Testing Right Flexion (S2) 4 Good Extension (L3) 4+ Good+ Left Flexion (S2) 4 Good Extension (L3) 4+ Good+ PT-OP-Q Treatments Start: 08/29/23 13:35 Freq: Status: Active Protocol: Document 09/25/23 09:51 SP (Rec: 09/25/23 10:37 SP [id number]) Therapeutic Exercises Supine Exercises ITB/lat thigh stretch Supine Exercise Name trialed and added to HEP Side bilateral Resistance ft over opp knee ft on table Equipment Used flat sheet LTR Supine Exercise Name LTR Comments good warm up LS ROM initially in am Clamshell Supine Exercise Name Supine Clamshell Side bilateral Resistance Lv 2 held shonda/cross around thighs (unable don loop) Reps/Minutes 2x15 Comments reports increased more benefited resistance fully circumferenced thighs Sitting Exercises Ankle Flexion Sitting Exercise Name 4-way ankle:DF, EV, IV, eccentric PF Side bilateral Resistance Lv 3 cher-ae heights green Equipment Used ball between knees- reduce hip ER compensations Reps/Minutes x10 each- review HEP Comments use HO, cued set up as needed- gd effort challenge LLE DF Manual Therapy Treatment Soft Tissue Mobilization L hip Body Location TFL, Distal mm to posterior greater trochanter Mobilization Type Rolling,Strumming Comments into hip ER stretch then improved IR AAROM posterolateral hip stretch. PT-OP-T Assessment and Plan Start: 08/29/23 13:35 Freq: Status: Active Protocol: Document 09/25/23 09:51 SP (Rec: 09/25/23 10:37 SP [id number]) Physical Therapy Assessment Goals Three Impairment Pt ambulates using ipsilateral SPC (R) antalgic gait Senior Living Goal (LTG) Pt to demonstrate ability to ambulate with a WNL stride length and no antalgia using left-sided SPC LTG Duration 10/29/23 Two Impairment Pt exhibits right hip flexion MMT of 2+/5 Senior Living Goal (LTG) Pt to increase right hip flexion to at least 3+/5 in order to enable him to lift leg into bed without assistance LTG Duration 10/29/23 One Impairment Pt does not have an appropriate home exercise program Short Term Goal (STG) Pt to be independent and compliant with an appropriate HEP STG Duration 09/28/23 Assessment Summary Assessment Tx focused on hip tightness reduction and increased ROM R> L and reviewing resisted ankle strengthening for confidence home carryover. Good response to manual, initiated lateral hip stretch and better understanding set up and performance of HEP. He reports hips feel better end tx walking around into standing. Physical Therapy Plan Frequency and Duration Frequency of Treatment 2x/Week Plan of Care Start Date 08/29/23 Plan of Care End Date 10/29/23 Therapeutic Interventions Therapeutic Interventions Home Exercise Program,Joint Mobilizations,Manual Therapy, Neuromuscular Re-education, Patient/Caregiver Education, Self-Care/Home Management,Soft Tissue Mobilization, Therapeutic Activities, Therapeutic Exercises Next Visit Focus/Plan Next Note Type Treatment Note Next Visit Plan Check lateral hip stretch and provide HO forgot give. Review ankle ex as needed. POC: Hip strengthening, increased activity tolerance, STM/flexibility
--- NOTE | 2023-09-30 16:25 | PT.OTN ---
Current Diagnoses Stiffness of right hip, not elsewhere classified (09/30/23) Stiffness of right knee, not elsewhere classified (09/30/23) Muscle weakness (generalized) (09/30/23) Other abnormalities of gait and mobility (09/30/23) Presence of right artificial knee joint (09/30/23) Physical Therapy Treatment Note PT-OP-A Visit Information Start: 08/29/23 13:35 Freq: Status: Active Protocol: Document 09/30/23 14:34 AB (Rec: 09/30/23 16:24 AB [id number]) Out-Patient Physical Therapy Visit Information Visit Information Visit Type Treatment Note Visit Start Time 14:35 Visit Stop Time 15:16 Visit Number 9 Number of BOTTOM STEEP TENDER Visits 2 Evaluation Information Evaluation Date 08/29/23 PT-OP-B Current Condition Start: 08/29/23 13:35 Freq: Status: Active Protocol: Document 08/29/23 09:00 DCW (Rec: 08/29/23 13:44 DCW [id number]) Current Condition History of Current Condition Onset Date Five year history Current Complaints Right hip pain, right knee pain, back pain, gait difficulty, weakness History of Current Condition Pt is a 73 year old male presenting with a complex medical history, complaining of right hip/knee pain, weakness, and decreased mobility. Pt first underwent R TKA in 2012, recovery went well, but starting in 2018 began experiencing increased back and hip pain. Underwent back surgeries in 2019 and 2020, and then a hip replacement in 2021. Pt admits that none of these really helped with his pain, and then began experiencing worsening pain again in his right knee. X-rays showed degenerative changes to his patella, unfortunately pt was told there wasn't really anything to do about it. Due to changes in his gait secondary to pain, pt has now begun experiencing more pain in his right hip adductors and right posterior hip. Required assistance from his arms to lift his right leg into the car or into his bed. Did undergo a lumbar injection two weeks ago, which did seem to help a lot of his lumbar and left hip pain. PT-OP-C Subjective Start: 08/29/23 13:35 Freq: Status: Active Protocol: Document 09/30/23 14:34 AB (Rec: 09/30/23 16:24 AB [id number]) OP-PT Subjective Patient Comments Patient Comments Patient reports he is a little better, the right quad is healing up, everyting else is about the same. Patient comments he had food posioning last Friday. PT-OP-F Manual Assessment Start: 08/29/23 13:35 Freq: Status: Active Protocol: Document 08/29/23 09:00 DCW (Rec: 08/29/23 16:39 DCW [id number]) Manual Assessments Soft Tissue Assessment Soft Tissue Mobility Assessment Moderate tone R adductors, R hip flexors, R piriformis, R quad, B hamstrings, B ITB Joint Mobility Assessment Joint Mobility Assessment Mild limitations to joint mobility in right hip and knee PT-OP-G Mobility & Gait Start: 08/29/23 13:35 Freq: Status: Active Protocol: Document 08/29/23 09:00 DCW (Rec: 08/29/23 16:39 DCW [id number]) OP Mobility Evaluation Bed Mobility Supine to and from Sit Pt requires use of UE pulling on pant leg to lift right leg into and out of bed Transfers Car Transfers Pt requires use of UE pulling on pant leg to lift right leg into and out of car OP Gait Assessment Comments Gait Comments Pt ambulates with SPC in right UE in order to support R LE, due to it being easier to swing the right leg that way. PT-OP-K Range of Motion Start: 08/29/23 13:35 Freq: Status: Active Protocol: Document 08/29/23 09:00 DCW (Rec: 08/29/23 16:39 DCW [id number]) Knee Goniometric Range of Motion Knee Right Patient Position Supine Flexion Active (degrees) 118 Flexion Passive (degrees) 3 PT-OP-M Strength Start: 08/29/23 13:35 Freq: Status: Active Protocol: Document 08/29/23 09:00 DCW (Rec: 08/29/23 16:39 DCW [id number]) Hip Strength Hip Manual Muscle Testing Right Flexion (L2) 2+ Poor+ Extension (S1) 4+ Good+ Abduction 4- Good- Adduction 4- Good- External Rotation 4 Good Internal Rotation 4 Good Left Flexion (L2) 4 Good Extension (S1) 4+ Good+ Abduction 4 Good Adduction 4 Good External Rotation 4+ Good+ Internal Rotation 4+ Good+ Knee Strength Knee Manual Muscle Testing Right Flexion (S2) 4 Good Extension (L3) 4+ Good+ Left Flexion (S2) 4 Good Extension (L3) 4+ Good+ PT-OP-Q Treatments Start: 08/29/23 13:35 Freq: Status: Active Protocol: Document 09/30/23 14:34 AB (Rec: 09/30/23 16:24 AB [id number]) Therapeutic Exercises Supine Exercises hip flexor stretch edge of bed Supine Exercise Name with X10 knee flexion AROM Side bilateral Reps/Minutes one minute left, unable right LE Sidelying Exercises Hip Abduction Side bilateral Reps/Minutes X10 without band, trial of leve one band unable to hold form Comments verbal and tactile cues to avoid rolling bakc Sitting Exercises seated hip abduction with band Side bilateral Resistance level 3 band Reps/Minutes one minute hold X 1 Comments for glute med activation Standing Exercises Hip Abd Standing Exercise Name standing hip abd Side bilateral Resistance level 3 Reps/Minutes X10 Hip Extension Standing Exercise Name Hip Extension Side bilateral Resistance Green loop Reps/Minutes X10 Therapeutic Activity Therapeutic Activity sit to stand with hip hinge Reps/Minutes 2X6 Comments Patient ed self tactile cues for hip hinge. Gait Training Gait Activity ambulation with SPC Device Used SPC Level of Assistance I Distance/Duration 20 feet Treatment Focus UE use Comments verbal cues to use SPC left UE when right knee is painful Manual Therapy Treatment Soft Tissue Mobilization Knee Body Location right quad, med and lat right knee Joint Mobilizations patellar mobilizations Joint right knee Direction inf, sup, med, lat, CW CCW Grade IV Body Position Supine Reps/Duration X12 each PT-OP-T Assessment and Plan Start: 08/29/23 13:35 Freq: Status: Active Protocol: Document 09/30/23 14:34 AB (Rec: 09/30/23 16:24 AB [id number]) Physical Therapy Assessment Goals Three Impairment Pt ambulates using ipsilateral SPC (R) antalgic gait Senior Care Goal (LTG) Pt to demonstrate ability to ambulate with a WNL stride length and no antalgia using left-sided SPC LTG Duration 10/29/23 Two Impairment Pt exhibits right hip flexion MMT of 2+/5 Valuation Manager Goal (LTG) Pt to increase right hip flexion to at least 3+/5 in order to enable him to lift leg into bed without assistance LTG Duration 10/29/23 One Impairment Pt does not have an appropriate home exercise program Short Term Goal (STG) Pt to be independent and compliant with an appropriate HEP STG Duration 09/28/23 Assessment Summary Assessment Patient reports dec pain with stand to sit when performing with improved hip hinge. Ipsilateral trunk side bend left with ambulation persists. Physical Therapy Plan Frequency and Duration Frequency of Treatment 2x/Week Plan of Care Start Date 08/29/23 Plan of Care End Date 10/29/23 Next Visit Focus/Plan Next Note Type Progress Note Next Visit Plan Check lateral hip stretch and provide HO forgot give. Review ankle ex as needed. POC: Hip strengthening, increased activity tolerance, STM/flexibility
--- NOTE | 2023-10-02 11:14 | PT.OTN ---
Current Diagnoses Stiffness of right hip, not elsewhere classified (10/02/23) Stiffness of right knee, not elsewhere classified (10/02/23) Muscle weakness (generalized) (10/02/23) Other abnormalities of gait and mobility (10/02/23) Presence of right artificial knee joint (10/02/23) Physical Therapy Treatment Note PT-OP-A Visit Information Start: 08/29/23 13:35 Freq: Status: Active Protocol: Document 10/02/23 10:30 DCW (Rec: 10/02/23 11:14 DCW [id number]) Out-Patient Physical Therapy Visit Information Visit Information Visit Type Progress Note Visit Start Time 10:30 Visit Stop Time 11:15 Visit Number 10 Number of GAME PROTECTOR Visits 0 Evaluation Information Evaluation Date 08/29/23 PT-OP-B Current Condition Start: 08/29/23 13:35 Freq: Status: Active Protocol: Document 08/29/23 09:00 DCW (Rec: 08/29/23 13:44 DCW [id number]) Current Condition History of Current Condition Onset Date Five year history Current Complaints Right hip pain, right knee pain, back pain, gait difficulty, weakness History of Current Condition Pt is a 73 year old male presenting with a complex medical history, complaining of right hip/knee pain, weakness, and decreased mobility. Pt first underwent R TKA in 2012, recovery went well, but starting in 2018 began experiencing increased back and hip pain. Underwent back surgeries in 2019 and 2020, and then a hip replacement in 2021. Pt admits that none of these really helped with his pain, and then began experiencing worsening pain again in his right knee. X-rays showed degenerative changes to his patella, unfortunately pt was told there wasn't really anything to do about it. Due to changes in his gait secondary to pain, pt has now begun experiencing more pain in his right hip adductors and right posterior hip. Required assistance from his arms to lift his right leg into the car or into his bed. Did undergo a lumbar injection two weeks ago, which did seem to help a lot of his lumbar and left hip pain. PT-OP-C Subjective Start: 08/29/23 13:35 Freq: Status: Active Protocol: Document 10/02/23 10:30 DCW (Rec: 10/02/23 11:14 DCW [id number]) OP-PT Subjective Patient Comments Patient Comments Pt continues to feel his hips are making very good progress, but feels like his right knee is worsening faster than I would like. PT-OP-F Manual Assessment Start: 08/29/23 13:35 Freq: Status: Active Protocol: Document 08/29/23 09:00 DCW (Rec: 08/29/23 16:39 DCW [id number]) Manual Assessments Soft Tissue Assessment Soft Tissue Mobility Assessment Moderate tone R adductors, R hip flexors, R piriformis, R quad, B hamstrings, B ITB Joint Mobility Assessment Joint Mobility Assessment Mild limitations to joint mobility in right hip and knee PT-OP-G Mobility & Gait Start: 08/29/23 13:35 Freq: Status: Active Protocol: Document 08/29/23 09:00 DCW (Rec: 08/29/23 16:39 DCW [id number]) OP Mobility Evaluation Bed Mobility Supine to and from Sit Pt requires use of UE pulling on pant leg to lift right leg into and out of bed Transfers Car Transfers Pt requires use of UE pulling on pant leg to lift right leg into and out of car OP Gait Assessment Comments Gait Comments Pt ambulates with SPC in right UE in order to support R LE, due to it being easier to swing the right leg that way. PT-OP-K Range of Motion Start: 08/29/23 13:35 Freq: Status: Active Protocol: Document 08/29/23 09:00 DCW (Rec: 08/29/23 16:39 DCW [id number]) Knee Goniometric Range of Motion Knee Right Patient Position Supine Flexion Active (degrees) 118 Flexion Passive (degrees) 3 PT-OP-M Strength Start: 08/29/23 13:35 Freq: Status: Active Protocol: Document 08/29/23 09:00 DCW (Rec: 08/29/23 16:39 DCW [id number]) Hip Strength Hip Manual Muscle Testing Right Flexion (L2) 2+ Poor+ Extension (S1) 4+ Good+ Abduction 4- Good- Adduction 4- Good- External Rotation 4 Good Internal Rotation 4 Good Left Flexion (L2) 4 Good Extension (S1) 4+ Good+ Abduction 4 Good Adduction 4 Good External Rotation 4+ Good+ Internal Rotation 4+ Good+ Knee Strength Knee Manual Muscle Testing Right Flexion (S2) 4 Good Extension (L3) 4+ Good+ Left Flexion (S2) 4 Good Extension (L3) 4+ Good+ PT-OP-Q Treatments Start: 08/29/23 13:35 Freq: Status: Active Protocol: Document 10/02/23 10:30 DCW (Rec: 10/02/23 11:14 DCW [id number]) Cardio Equipment Recumbent Elliptical (Biodex) Duration (Minutes) 5 Resistance 8 Seat Position 12 PT-OP-T Assessment and Plan Start: 08/29/23 13:35 Freq: Status: Active Protocol: Document 10/02/23 10:30 DCW (Rec: 10/02/23 11:14 DCW [id number]) Physical Therapy Assessment Goals Three Impairment Pt ambulates using ipsilateral SPC (R) antalgic gait Thread Grinder Tool Goal (LTG) Pt to demonstrate ability to ambulate with a WNL stride length and no antalgia using left-sided SPC LTG Duration 10/29/23 Two Impairment Pt exhibits right hip flexion MMT of 2+/5 Impairment 10/02/23 - R hip flexion MMT 3+/ 5 Half-Way Goal (LTG) Pt to increase right hip flexion to at least 3+/5 in order to enable him to lift leg into bed without assistance LTG Duration Met One Impairment Pt does not have an appropriate home exercise program Short Term Goal (STG) Pt to be independent and compliant with an appropriate HEP STG Duration 09/28/23 Assessment Summary Assessment Progressing well, pt has met 2 /3 goals, significant improvement with right hip flexor strength, able to perform activities (in/out of car and bed) without requiring UE assistance lifting leg. Pt will likely be discharging next week, will focus on review and addition to HEP. Physical Therapy Plan Frequency and Duration Frequency of Treatment 2x/Week Plan of Care Start Date 08/29/23 Plan of Care End Date 10/29/23 Therapeutic Interventions Therapeutic Interventions Home Exercise Program,Joint Mobilizations,Manual Therapy, Neuromuscular Re-education, Patient/Caregiver Education, Self-Care/Home Management,Soft Tissue Mobilization, Therapeutic Activities, Therapeutic Exercises Next Visit Focus/Plan Next Note Type Treatment Note Next Visit Plan Check lateral hip stretch and provide HO forgot give. Review ankle ex as needed. POC: Hip strengthening, increased activity tolerance, STM/flexibility
--- NOTE | 2023-10-07 11:17 | PT.OTN ---
Current Diagnoses Stiffness of right hip, not elsewhere classified (10/07/23) Stiffness of right knee, not elsewhere classified (10/07/23) Muscle weakness (generalized) (10/07/23) Other abnormalities of gait and mobility (10/07/23) Presence of right artificial knee joint (10/07/23) Physical Therapy Treatment Note PT-OP-A Visit Information Start: 08/29/23 13:35 Freq: Status: Active Protocol: Document 10/07/23 10:30 DCW (Rec: 10/07/23 11:17 DCW [id number]) Out-Patient Physical Therapy Visit Information Visit Information Visit Type Treatment Note Visit Start Time 10:30 Visit Stop Time 11:15 Visit Number 11 Number of MACHINE PIE MAKER Visits 0 Evaluation Information Evaluation Date 08/29/23 PT-OP-B Current Condition Start: 08/29/23 13:35 Freq: Status: Active Protocol: Document 08/29/23 09:00 DCW (Rec: 08/29/23 13:44 DCW [id number]) Current Condition History of Current Condition Onset Date Five year history Current Complaints Right hip pain, right knee pain, back pain, gait difficulty, weakness History of Current Condition Pt is a 73 year old male presenting with a complex medical history, complaining of right hip/knee pain, weakness, and decreased mobility. Pt first underwent R TKA in 2012, recovery went well, but starting in 2018 began experiencing increased back and hip pain. Underwent back surgeries in 2019 and 2020, and then a hip replacement in 2021. Pt admits that none of these really helped with his pain, and then began experiencing worsening pain again in his right knee. X-rays showed degenerative changes to his patella, unfortunately pt was told there wasn't really anything to do about it. Due to changes in his gait secondary to pain, pt has now begun experiencing more pain in his right hip adductors and right posterior hip. Required assistance from his arms to lift his right leg into the car or into his bed. Did undergo a lumbar injection two weeks ago, which did seem to help a lot of his lumbar and left hip pain. PT-OP-C Subjective Start: 08/29/23 13:35 Freq: Status: Active Protocol: Document 10/07/23 10:30 DCW (Rec: 10/07/23 11:17 DCW [id number]) OP-PT Subjective Patient Comments Patient Comments It was a rough weekend. Nothing specific, I just overachieved. PT-OP-F Manual Assessment Start: 08/29/23 13:35 Freq: Status: Active Protocol: Document 08/29/23 09:00 DCW (Rec: 08/29/23 16:39 DCW [id number]) Manual Assessments Soft Tissue Assessment Soft Tissue Mobility Assessment Moderate tone R adductors, R hip flexors, R piriformis, R quad, B hamstrings, B ITB Joint Mobility Assessment Joint Mobility Assessment Mild limitations to joint mobility in right hip and knee PT-OP-G Mobility & Gait Start: 08/29/23 13:35 Freq: Status: Active Protocol: Document 08/29/23 09:00 DCW (Rec: 08/29/23 16:39 DCW [id number]) OP Mobility Evaluation Bed Mobility Supine to and from Sit Pt requires use of UE pulling on pant leg to lift right leg into and out of bed Transfers Car Transfers Pt requires use of UE pulling on pant leg to lift right leg into and out of car OP Gait Assessment Comments Gait Comments Pt ambulates with SPC in right UE in order to support R LE, due to it being easier to swing the right leg that way. PT-OP-K Range of Motion Start: 08/29/23 13:35 Freq: Status: Active Protocol: Document 08/29/23 09:00 DCW (Rec: 08/29/23 16:39 DCW [id number]) Knee Goniometric Range of Motion Knee Right Patient Position Supine Flexion Active (degrees) 118 Flexion Passive (degrees) 3 PT-OP-M Strength Start: 08/29/23 13:35 Freq: Status: Active Protocol: Document 08/29/23 09:00 DCW (Rec: 08/29/23 16:39 DCW [id number]) Hip Strength Hip Manual Muscle Testing Right Flexion (L2) 2+ Poor+ Extension (S1) 4+ Good+ Abduction 4- Good- Adduction 4- Good- External Rotation 4 Good Internal Rotation 4 Good Left Flexion (L2) 4 Good Extension (S1) 4+ Good+ Abduction 4 Good Adduction 4 Good External Rotation 4+ Good+ Internal Rotation 4+ Good+ Knee Strength Knee Manual Muscle Testing Right Flexion (S2) 4 Good Extension (L3) 4+ Good+ Left Flexion (S2) 4 Good Extension (L3) 4+ Good+ PT-OP-Q Treatments Start: 08/29/23 13:35 Freq: Status: Active Protocol: Document 10/07/23 10:30 DCW (Rec: 10/07/23 11:17 DCW [id number]) Cardio Equipment Recumbent Elliptical (Biodex) Duration (Minutes) 5 Resistance 8 Seat Position 12 Gym Equipment Shuttle Balance red clips Details WBOS (EO/EC), Staggered, Lateral Therapeutic Ball Pelvic tilts Exercise Details Pelvic tilts, pelvic circles Ball Size/Color Green - 65 cm Body Position seated Therapeutic Exercises Standing Exercises Hip Hiking Standing Exercise Name Hip Hiking Side bilateral Equipment Used 4 step Manual Therapy Treatment Soft Tissue Mobilization Piriformis Body Location R Piriformis, Glute Mobilization Type Strumming,Sustained Pressure Body Position Sidelying PT-OP-T Assessment and Plan Start: 08/29/23 13:35 Freq: Status: Active Protocol: Document 10/07/23 10:30 DCW (Rec: 10/07/23 11:17 DCW [id number]) Physical Therapy Assessment Goals Three Impairment Pt ambulates using ipsilateral SPC (R) antalgic gait Gas Engine Performance Engineer Goal (LTG) Pt to demonstrate ability to ambulate with a WNL stride length and no antalgia using left-sided SPC LTG Duration 10/29/23 Two Impairment Pt exhibits right hip flexion MMT of 2+/5 Impairment 10/02/23 - R hip flexion MMT 3+/ 5 Correction Goal (LTG) Pt to increase right hip flexion to at least 3+/5 in order to enable him to lift leg into bed without assistance LTG Duration Met One Impairment Pt does not have an appropriate home exercise program Short Term Goal (STG) Pt to be independent and compliant with an appropriate HEP STG Duration 09/28/23 Assessment Summary Assessment Pt doing well, feels comfortable with HEP, overall feels like he has made good progress. Will likely discharge following next visit after re-testing and HEP review Physical Therapy Plan Frequency and Duration Frequency of Treatment 2x/Week Plan of Care Start Date 08/29/23 Plan of Care End Date 10/29/23 Therapeutic Interventions Therapeutic Interventions Home Exercise Program,Joint Mobilizations,Manual Therapy, Neuromuscular Re-education, Patient/Caregiver Education, Self-Care/Home Management,Soft Tissue Mobilization, Therapeutic Activities, Therapeutic Exercises Next Visit Focus/Plan Next Note Type Discharge Summary Next Visit Plan Complete tests and measures, review HEP
--- NOTE | 2023-10-09 11:08 | PT.OPDS ---
Current Diagnoses Stiffness of right hip, not elsewhere classified (10/09/23) Stiffness of right knee, not elsewhere classified (10/09/23) Muscle weakness (generalized) (10/09/23) Other abnormalities of gait and mobility (10/09/23) Presence of right artificial knee joint (10/09/23) Visit Care Team Role Provider Type Maria Luisa Wagoner MD Primary Care Provider Physician Specialty: Internal Medicine Address: [place], [address] Email: Tano Sorenson MD Family Provider Physician Specialty: Internal Medicine Address: [address] [place] [address], [id number] Email: Tigre Fong MD Attending Provider Physician Referring Provider Specialty: Orthopedics Orthopedic Surgery Address: [address] [place] [address], [id number] Email: [email or web address] Visit Number Visit Number 12 Discharge Summary PT-OP-B Current Condition Start: 08/29/23 13:35 Freq: Status: Active Protocol: Document 08/29/23 09:00 DCW (Rec: 08/29/23 13:44 DCW [id number]) Current Condition History of Current Condition Onset Date Five year history Current Complaints Right hip pain, right knee pain, back pain, gait difficulty, weakness History of Current Condition Pt is a 73 year old male presenting with a complex medical history, complaining of right hip/knee pain, weakness, and decreased mobility. Pt first underwent R TKA in 2012, recovery went well, but starting in 2018 began experiencing increased back and hip pain. Underwent back surgeries in 2019 and 2020, and then a hip replacement in 2021. Pt admits that none of these really helped with his pain, and then began experiencing worsening pain again in his right knee. X-rays showed degenerative changes to his patella, unfortunately pt was told there wasn't really anything to do about it. Due to changes in his gait secondary to pain, pt has now begun experiencing more pain in his right hip adductors and right posterior hip. Required assistance from his arms to lift his right leg into the car or into his bed. Did undergo a lumbar injection two weeks ago, which did seem to help a lot of his lumbar and left hip pain. PT-OP-C Subjective Start: 08/29/23 13:35 Freq: Status: Active Protocol: Document 10/09/23 10:30 DCW (Rec: 10/09/23 11:08 DCW [id number]) OP-PT Subjective Patient Comments Patient Comments Pt doing fairly well overall, still noting his right knee is worsening PT-OP-F Manual Assessment Start: 08/29/23 13:35 Freq: Status: Active Protocol: Document 10/09/23 10:30 DCW (Rec: 10/09/23 11:04 DCW [id number]) Manual Assessments Joint Mobility Assessment Joint Mobility Assessment Mild-moderate limitations to joint mobility in right knee PT-OP-G Mobility & Gait Start: 08/29/23 13:35 Freq: Status: Active Protocol: Document 10/09/23 10:30 DCW (Rec: 10/09/23 11:04 DCW [id number]) OP Mobility Evaluation Bed Mobility Supine to and from Sit Pt able to lift R LE into bed without assistance Transfers Car Transfers Pt able to lift R LE into car without assistance OP Gait Assessment Assistive Devices Assistive Device None Gait Deviations General Gait Pattern Flexed Trunk PT-OP-K Range of Motion Start: 08/29/23 13:35 Freq: Status: Active Protocol: Document 10/09/23 10:30 DCW (Rec: 10/09/23 11:04 DCW [id number]) Knee Goniometric Range of Motion Knee Right Patient Position Supine Flexion Active (degrees) 120 Flexion Passive (degrees) 0 PT-OP-M Strength Start: 08/29/23 13:35 Freq: Status: Active Protocol: Document 10/09/23 10:30 DCW (Rec: 10/09/23 11:04 DCW [id number]) Hip Strength Hip Manual Muscle Testing Right Flexion (L2) 4+ Good+ Extension (S1) 4+ Good+ Abduction 4 Good Adduction 4 Good External Rotation 4 Good Internal Rotation 4 Good Left Flexion (L2) 4 Good Extension (S1) 4+ Good+ Abduction 4 Good Adduction 4 Good External Rotation 4+ Good+ Internal Rotation 4+ Good+ Knee Strength Knee Manual Muscle Testing Right Flexion (S2) 4 Good Extension (L3) 4+ Good+ Left Flexion (S2) 4+ Good+ Extension (L3) 4+ Good+ PT-OP-T Assessment and Plan Start: 08/29/23 13:35 Freq: Status: Active Protocol: Document 10/09/23 10:30 DCW (Rec: 10/09/23 11:08 DCW [id number]) Physical Therapy Assessment Goals Three Impairment Pt ambulates using ipsilateral SPC (R) antalgic gait Fpc Goal (LTG) Pt to demonstrate ability to ambulate with a WNL stride length and no antalgia using left-sided SPC LTG Duration Met /s AD Two Impairment Pt exhibits right hip flexion MMT of 2+/5 Impairment 10/02/23 - R hip flexion MMT 3+/ 5 Client Support Analyst Goal (LTG) Pt to increase right hip flexion to at least 3+/5 in order to enable him to lift leg into bed without assistance LTG Duration Met One Impairment Pt does not have an appropriate home exercise program Short Term Goal (STG) Pt to be independent and compliant with an appropriate HEP STG Duration Met Progress Towards Goals Progress Towards Goals Goals Met Assessment Summary Assessment Pt feels comfortable with current HEP. Does note right knee pain is worsening, has follow-up with referring physician. Pt hips doing much better, no longer limiting. Pt agreeable to discharge from skilled PT at this time. Physical Therapy Plan Frequency and Duration Frequency of Treatment 2x/Week Plan of Care Start Date 08/29/23 Plan of Care End Date 10/29/23 Therapeutic Interventions Therapeutic Interventions Home Exercise Program,Joint Mobilizations,Manual Therapy, Neuromuscular Re-education, Patient/Caregiver Education, Self-Care/Home Management,Soft Tissue Mobilization, Therapeutic Activities, Therapeutic Exercises Discharge Physical Therapy Discharge Reasons Goals Met Next Visit Focus/Plan Next Note Type Discharge Summary
== END 2023-10-14 10:45 | disposition home or self-care (01) ==
LOC: PHYS 10:30
PROVIDERS: Family Provider Internal Medicine; PCP Internal Medicine; Referring Provider Orthopaedic Surgery Adult Reconstructive Orthopaedic Surgery; Visit Provider Orthopaedic Surgery Adult Reconstructive Orthopaedic Surgery
DX: Z96.651 Presence of right artificial knee joint (principal); M25.651 Stiffness of right hip, not elsewhere classified; M25.661 Stiffness of right knee, not elsewhere classified; R26.89 Other abnormalities of gait and mobility; M62.81 Muscle weakness (generalized)
CPT/HCPCS: 97110; 97112; 97140; 97162; 97530

== ENCOUNTER → 2023-10-23 16:00 | Outpatient (CLI) | payer MEDICARE, SELFPAY ==
[2021-08-28 17:41] VITALS: BMI 31.6
--- NOTE | 2023-10-23 16:01 | DI.MRI.S_ITS ---
PROCEDURE: MR HEAD/BRAIN WO CON INDICATIONS: Foot drop, right foot TECHNIQUE: Non-contrast axial T1 spin echo, axial T2 fast spin echo, sagittal and axial FLAIR, coronal T2 fast spin echo, axial gradient echo, axial diffusion and ADC through the brain. COMPARISON: None. FINDINGS: Image quality: Excellent. CSF spaces: Ventricles appear symmetric in size and shape. Basal cisterns are patent. No extra-axial fluid collections. Brain: No intracranial bleeds or mass effects. There is cerebral volume loss for age. There are periventricular and deep white matter chronic small vessel ischemic changes. Brainstem appears normal. Diffusion-weighted images show no acute infarct. No chronic ischemic insults. Normal intravascular flow voids are present. Skull and face: Calvarial bone marrow is normal in signal. Orbits are normal. Sinuses: Sinuses and mastoids are clear. IMPRESSION: 1. No acute intracranial process. 2. Moderate atrophy and chronic microvascular ischemic changes. Dictated by: Brandi Contreras M.D. on 10/24/2023 at 11:32 Approved by: Brandi Contreras M.D. on 10/24/2023 at 11:34
== END ==
PROVIDERS: Family Provider Internal Medicine; PCP Internal Medicine; Referring Provider Internal Medicine; Visit Provider Internal Medicine
DX: H53.2 Diplopia (principal); M21.371 Foot drop, right foot
CPT/HCPCS: 70551

== ENCOUNTER 2023-10-29 09:26 | Outpatient (CLI) | payer MEDICARE, SELFPAY ==
[2021-08-28 17:41] VITALS: BMI 31.6
[2023-10-29] VITALS (8 sets, daily range): BP systolic 104–168; BP diastolic 72–92; PULSE 64–79; RESP 12–20; TEMP 36.1; O2SAT 93–97
[2023-10-29] MEDS: MIDAZOLAM 2 MG/2 ML VIAL IV (10:00)
--- NOTE | 2023-10-29 10:00 | DI.RAD.S_ITS ---
PROCEDURE: PAIN L INTERLAMINAR/CAUDAL INJ INDICATIONS: Lumbar Radiculopathy COMPARISON: None. FINDINGS: Fluoroscopic spot filming was performed to verify placement of spinal needles at the sacrum level(s), as labeled on the films. Appropriate location(s) of the needle tip(s) was confirmed by injection of iodinated contrast. Lumbar spine hardware. IMPRESSION: Intraoperative guidance provided. Dictated by: Steve Almeida M.D. on 10/29/2023 at 14:57 Approved by: Steve Almeida M.D. on 10/29/2023 at 14:58
[2023-10-29] MEDS: DEXAMETHASONE 10 MG/ML VIAL INJ (10:03)
[2023-10-29] MEDS: iopamidoL 15 ML VIAL 3 ML INJ (10:03)
--- NOTE | 2023-10-29 11:33 | P.PCN_ITS ---
Date/Time/Diagnoses Date of procedure: 10/29/23 Time of procedure: 10:00 Procedure Notes Physician: David Madrigal Total Fluoroscopy time (seconds): 11 Total sedation minutes: 10 Procedure in detail & Post-procedure care: Caudal Epidural Steroid Injection Indications: Toni is presenting for treatment of lumbar radiculopathy with low back and leg pain. Preoperative diagnosis: Lumbar radiculopathy Postoperative diagnosis: Same Focused Examination: Ax3 Mood and affect are normal Vital Signs: VSS ASA: 2 Consent: Following review of allergies and potential side effects/complications, including, but not necessarily limited to, infection, allergic reaction, local tissue breakdown, stroke, temporary or permanent nerve injury, paralysis, and possible , the patient indicated that they understood and agreed to proceed.? An informed consent document was signed by the patient, witnessed by a nurse and placed in the patient's chart.? Additionally, other treatment options including medications and physical therapy were reviewed with the patient. All questions were answered. Site was then marked. Anesthesia: After review of previous anesthetic history and IV conscious sedation, the patient was deemed safe to proceed with today's procedure with IV conscious sedation. IV sedation was accomplished with midazolam 2 mg administered by the RN after order by Dr. Madrigal. Sedation was titrated to forest ent comfort during the course of the procedure. Patient remained responsive to all verbal commands. Position: Prone Monitoring: NIBP, Pulse oximetry, 3 lead EKG Needle used: 25 gauge, 3.5 in spinal needle Contrast: Isovue 300-M 2mL Injectate: Dexamethasone 10 mg with 1% lidocaine 2 mL and normal saline 2 mL Technique: The skin was prepped with chloraprep and then draped in a sterile fashion. Time out was performed as per protocol. Oxygen applied via NC. The entry point for entering/approaching the epidural space by a caudal approach through the sacral hiatus was identified. Skin and subcutaneous structures of the needle entry site was then infiltrated with 3 mL of lidocaine 1%. Under AP and lateral control, the needle was guided through the sacral hiatus to the S3 level. Contrast was then injected and the spread was consistent with the epidural space. There was no evidence for intravascular or intrathecal uptake. After negative aspiration, the above-mentioned injectate was then slowly administered and the needle withdrawn. The patient expressed no unusual discomfort or paresthesias during needle positioning or injection. Band-Aids applied to injection sites. EBL: less than 1 ml Complications: None Post Procedure: Patient was taken to the recovery and monitored. The patient was provided a Pain Log to continue to record the patient's response to the target- specific procedure prior to the patient's follow-up visit with the referring physician. Patient was stable upon discharge. Detailed post procedure instructions were provided. Patient was asked to call in the event of worsening pain, fever, weakness, numbness or bladder or bowel incontinence.
== END 2023-10-29 10:34 | disposition home or self-care (01) ==
LOC: RAD 09:27
PROVIDERS: Family Provider Internal Medicine; PCP Internal Medicine; Referring Provider Anesthesiology; Visit Provider Anesthesiology
DX: M54.16 Radiculopathy, lumbar region (principal)
CPT/HCPCS: 62323; 99152; J1100; J2250

== ENCOUNTER → 2023-12-09 | Outpatient (CLI) | payer MEDICARE, SELFPAY ==
[2021-08-28 17:41] VITALS: BMI 31.6
--- NOTE | 2023-12-09 10:53 | DI.RAD.S_ITS ---
PROCEDURE: XR KNEE LT 3V INDICATIONS: Knee pain TECHNIQUE: 3 views of the knee were acquired. COMPARISON: [facility], , KNEE 1-2 VIEWS RIGHT, 01/23/2015, 14:08. FINDINGS: Bones: No fractures or dislocations. No suspicious bony lesions. Tricompartmental joint space narrowing with associated osteophytosis. Soft tissues: Small joint effusion. No suspicious soft tissue calcifications. IMPRESSION: No acute bony abnormality or significant effusion. [id number] tricompartmental osteoarthritis. Kellgren-Richardson Grade 2. Dictated by: Karthik Perdomo M.D. on 12/09/2023 at 13:56 Approved by: Karthik Perdomo M.D. on 12/09/2023 at 13:56
--- NOTE | 2023-12-09 10:53 | DI.RAD.S_ITS ---
PROCEDURE: XR KNEE RT 3V INDICATIONS: Knee pain TECHNIQUE: 3 views of the knee were acquired. COMPARISON: [facility], , KNEE 1-2 VIEWS RIGHT, 01/23/2015, 14:08. FINDINGS: Bones: No fractures or dislocations. No suspicious bony lesions. Well-aligned, intact left total knee arthroplasty without hardware complication. Soft tissues: Small joint effusion. No suspicious soft tissue calcifications. IMPRESSION: Small knee joint effusion. Well-aligned, intact left total knee arthroplasty without hardware complication. Dictated by: Karthik Perdomo M.D. on 12/09/2023 at 13:53 Approved by: Karthik Perdomo M.D. on 12/09/2023 at 13:56
== END ==
PROVIDERS: Family Provider Internal Medicine; PCP Internal Medicine; Referring Provider Anesthesiology; Visit Provider Anesthesiology
DX: M17.12 Unilateral primary osteoarthritis, left knee (principal); M47.26 Other spondylosis with radiculopathy, lumbar region; M25.461 Effusion, right knee; M25.562 Pain in left knee; M25.561 Pain in right knee; M54.9 Dorsalgia, unspecified; Z96.651 Presence of right artificial knee joint; Z98.1 Arthrodesis status
CPT/HCPCS: 73562; 99213

== ENCOUNTER 2024-03-30 10:45 | Outpatient (RCR) | payer MEDICARE, SELFPAY ==
[2021-08-28 17:41] VITALS: BMI 31.6
--- NOTE | 2024-02-24 12:58 | PT.OIE ---
Current Diagnoses Other chronic pain (02/24/24) Lumbago with sciatica, left side (02/24/24) Past Medical History (Last Updated 12/22/23 @ 10:40 by David Madrigal MD) Anxiety Dorsalgia Exposure to COVID-19 virus (~07/2019) GERD (gastroesophageal reflux disease) HTN (hypertension) Hyperlipidemia Kidney stones Left hip pain Left knee pain Lumbar radiculopathy Lumbar spondylosis Osteoarthritis of left knee PVC's (premature ventricular contractions) RBBB (right bundle branch block) Right knee pain Past Surgical History (Last Reviewed 12/22/23 @ 10:39 by David Madrigal MD) History of arthroplasty of right knee (01/23/15) History of lumbar fusion History of lumbar spinal fusion (12/08/19) History of lumbar spinal fusion (11/20/20) History of total knee arthroplasty History of vasectomy (1989) Hx of appendectomy Hx of eye surgery Hx of foot surgery (1984) Hx of laminectomy (~1989) Hx of lithotripsy Visit Care Team Role Provider Type Tano Sorenson MD Family Provider Physician Specialty: Internal Medicine Address: [address] [place] [address], [id number] Email: Maria Luisa Wagoner MD Attending Provider Physician Primary Care Provider Referring Provider Specialty: Internal Medicine Address: [place], [address] Email: Physical Therapy Initial Evaluation PT-OP-A Visit Information Start: 02/23/24 16:28 Freq: Status: Active Protocol: Document 02/24/24 09:47 MB (Rec: 02/24/24 10:23 MB [id number]) Out-Patient Physical Therapy Visit Information Visit Information Visit Type Initial Evaluation Visit Note Progress note by 03/26 Visit Start Time 09:47 Visit Stop Time 10:27 Visit Number 1 Number of 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 PMH includes discectomy 1991 and left foot drop afterwards, 2012 right TKA, 2019 and 2020 L4-S1 surgeries, 2021 left THR, several spinal injections in the lumbar spine, multiple PT courses. 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 Pt has left hip pain that starts in the back of the hip and travels down the leg that sounds like sciatica. EMG in the past showed lumbar nerve and sacral nerve issues. Overall, spinal injections were not helpful. He returned to the doctor to ask for a more broad chronic pain management and he remembered that fascial Counterstrain was somewhat helpful in the past. He wonders if PT can try that and/or think of any other ways for pain management. Pt con't with some PT HEP exercises, especially hip abduction in standing. He is riding an e-bike. He likes stretching his back forward, APs in supine, glute squeezes, rolling legs in. Pt con't to go down to his boat once a week and stay in there as it is his man cave. His does have sciatic symptoms in the car/with sitting. Pt is staying up on medications as far as pain. His BP was high and he started BP medication. Treatment Goals Patient/Caregiver Goals To see if PT can be helpful or if PT can recommend other chronic pain options. PT-OP-C Subjective Start: 02/23/24 16:28 Freq: Status: Active Protocol: Document 02/24/24 09:47 MB (Rec: 02/24/24 10:23 MB [id number]) OP-PT Subjective Patient Comments Patient Comments See history of current condition. Patient Questionnaires Oswestry Low Back Index Oswestry Score 16 Oswestry Impairment 20 to 39% Impaired (Score 20- 39) PT-OP-G Mobility & Gait Start: 02/23/24 16:28 Freq: Status: Active Protocol: Document 02/24/24 09:47 MB (Rec: 02/24/24 10:23 MB [id number]) OP Gait Assessment Comments Gait Comments Stiff, slow and imbalanced gait with right leg functionally shorter than the left with gait, left foot drop and limited arm swing and gait is very careful PT-OP-H Neuro Start: 02/23/24 16:28 Freq: Status: Active Protocol: Document 02/24/24 09:47 MB (Rec: 02/24/24 10:23 MB [id number]) Sensation Evaluation Comments Summary Comments Left medial and dorsal foot tingling and sciatic symptoms down left leg SI area to lateral heel, right lateral knee numbness PT-OP-J Posture/Palpation/Skin Start: 02/23/24 16:28 Freq: Status: Active Protocol: Document 02/24/24 09:47 MB (Rec: 02/24/24 10:23 MB [id number]) Posture Evaluation Comments Posture Comments Pt standing with B shoes donned and full length cork put in right shoe to help functional leg length: right increased Corby angle, forward head, rounded shoulders, increased kyphosis lower thoracic spine, surgical spine changes and decreased lordosis lumbar spine, right iliac crest higher than the right. Pt's spinal mobility is stiff and reduced and did not ask pt to forward flex or extend given high reports of mercedes, history of surgeries and sciatica. Similarly, did not wish to provoke spine, sciatic nerve or hamstrings with Slump B. In supine, decreased SLR B to approximately 65 deg. Decreased PROM B hips with IR most limited and tighter on the left. PT-OP-M Strength Start: 02/23/24 16:28 Freq: Status: Active Protocol: Document 02/24/24 09:47 MB (Rec: 02/24/24 12:58 MB [id number]) Hip Strength Hip Manual Muscle Testing Left Flexion (L2) 4+ Good+ Abduction 4 Good Right Flexion (L2) 4+ Good+ Abduction 4+ Good+ Knee Strength Knee Manual Muscle Testing B Flexion (S2) 5 Normal Extension (L3) 5 Normal Ankle/Foot Strength Ankle and Foot Manual Muscle Testing B Dorsiflexion (L4) 5 Normal Toe Strength Toe Manual Muscle Testing Left Great Toe Extension 5 Normal Right Great Toe Extension 5 Normal PT-OP-Q Treatments Start: 02/23/24 16:28 Freq: Status: Active Protocol: Document 02/24/24 09:47 MB (Rec: 02/24/24 12:58 MB [id number]) Self-Care/Home Management Treatment Education Other Education Reviewed log rolling, proper body mechanics and sleeping position, added full length cork to right shoe to assist with walking, discussed PT plan and limited visits to see if PT can be helpful for pt PT-OP-T Assessment and Plan Start: 02/23/24 16:28 Freq: Status: Active Protocol: Document 02/24/24 09:47 MB (Rec: 02/24/24 12:58 MB [id number]) Physical Therapy Assessment Rehab Potential Rehabilitation Potential Fair Evaluation Complexity Number of Personal Factors/Comorbidities 1-2 Number of Body Systems Impaired 1-2 Clinical Presentation at Evaluation Evolving Impairments Impairments Activity Tolerance,Balance, Coordination,Functional Activities,Functional Mobility ,Gait,Pain,Posture,ROM, Sensation,Soft Tissue Mobility ,Strength,Transfers Goals 1 Impairment Evidence of imbalance Rn Hospital Goal (LTG) Pt will perform WNLs on a standardized balance test to decrease fall risk. LTG Duration 6 weeks Two Impairment Lack of LB HEP Rn Hospital Goal (LTG) Pt will perform HEP with I including pelvic realignment, flexibility, core, and strengthening exercises to improve gait and pain. LTG Duration 6 weeks Oswestry Impairment Oswestry reveals 32% impairment Rn Hospital Goal (LTG) Pt will present with Oswestry score reflecting no more than 20% impairment to reflect improved pain, functioal mobility and quality of life. LTG Duration 6 weeks Progress Towards Goals Progress Towards Goals Goals Met Assessment Summary Assessment Pt is a 73 y/o male presenting with complicated medical history including at least 5 years of back pain, two spinal surgeries in the past four years with a third remote surgery in the past, left CHRISTOS and right TKA. Pt has received spinal injections and many rounds of physical therapy. He reports no pain-free days since 2019. Pt presents with spinal changes, antalgic gait and imbalance, left sciatic symptoms, decreased hip range and strength on assessment today. Will initiate limited PT trial to attempt to improve pain. Overall, guarded prognosis given no long-term pain relief in previous PT sessions, including two sessions with this PT. Will initiate manual work. Physical Therapy Plan Frequency and Duration Frequency of Treatment 1-2x/wk Duration of treatment (weeks) 6 Plan of Care Start Date 02/24/24 Plan of Care End Date 04/05/24 Therapeutic Interventions Therapeutic Interventions Balance Training,Canalithic Repositioning,Coordination Training,Gait Training,Home Exercise Program,Joint Mobilizations,Manual Therapy, Neuromuscular Re-education, Patient/Caregiver Education, Self-Care/Home Management, Sensory Integration,Soft Tissue Mobilization,Taping, Therapeutic Activities, Therapeutic Exercises Modalities Cold Pack/Ice Massage,Electric Stimulation,Hot Packs, Ultrasound Next Visit Focus/Plan Next Note Type Treatment Note Next Visit Plan Initiate manual work Initiate exercises and review any previous exercises given
--- NOTE | 2024-03-02 09:21 | PT.OTN ---
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 PMH includes discectomy 1991 and left foot drop afterwards, 2012 right TKA, 2019 and 2020 L4-S1 surgeries, 2021 left THR, several spinal injections in the lumbar spine, multiple PT courses. 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 Pt has left hip pain that starts in the back of the hip and travels down the leg that sounds like sciatica. EMG in the past showed lumbar nerve and sacral nerve issues. Overall, spinal injections were not helpful. He returned to the doctor to ask for a more broad chronic pain management and he remembered that fascial Counterstrain was somewhat helpful in the past. He wonders if PT can try that and/or think of any other ways for pain management. Pt con't with some PT HEP exercises, especially hip abduction in standing. He is riding an e-bike. He likes stretching his back forward, APs in supine, glute squeezes, rolling legs in. Pt con't to go down to his boat once a week and stay in there as it is his man cave. His does have sciatic symptoms in the car/with sitting. Pt is staying up on medications as far as pain. His BP was high and he started BP medication. Treatment Goals Patient/Caregiver Goals To see if PT can be helpful or if PT can recommend other chronic pain options. PT-OP-C Subjective Start: 02/23/24 16:28 Freq: Status: Active Protocol: Document 03/02/24 08:14 MB (Rec: 03/02/24 09:17 MB [id number]) OP-PT Subjective Patient Comments Patient Comments Pt reports that all benefits from previous injections are now gone. He con't on recumbent bike at gym and he scoots it forward to get more knee flexion. He rode his e- bike outside for 3 hours yesterday. PT-OP-G Mobility & Gait Start: 02/23/24 16:28 Freq: Status: Active Protocol: Document 02/24/24 09:47 MB (Rec: 02/24/24 10:23 MB [id number]) OP Gait Assessment Comments Gait Comments Stiff, slow and imbalanced gait with right leg functionally shorter than the left with gait, left foot drop and limited arm swing and gait is very careful PT-OP-H Neuro Start: 02/23/24 16:28 Freq: Status: Active Protocol: Document 02/24/24 09:47 MB (Rec: 02/24/24 10:23 MB [id number]) Sensation Evaluation Comments Summary Comments Left medial and dorsal foot tingling and sciatic symptoms down left leg SI area to lateral heel, right lateral knee numbness PT-OP-J Posture/Palpation/Skin Start: 02/23/24 16:28 Freq: Status: Active Protocol: Document 02/24/24 09:47 MB (Rec: 02/24/24 10:23 MB [id number]) Posture Evaluation Comments Posture Comments Pt standing with B shoes donned and full length cork put in right shoe to help functional leg length: right increased Corby angle, forward head, rounded shoulders, increased kyphosis lower thoracic spine, surgical spine changes and decreased lordosis lumbar spine, right iliac crest higher than the right. Pt's spinal mobility is stiff and reduced and did not ask pt to forward flex or extend given high reports of mercedes, history of surgeries and sciatica. Similarly, did not wish to provoke spine, sciatic nerve or hamstrings with Slump B. In supine, decreased SLR B to approximately 65 deg. Decreased PROM B hips with IR most limited and tighter on the left. PT-OP-M Strength Start: 02/23/24 16:28 Freq: Status: Active Protocol: Document 02/24/24 09:47 MB (Rec: 02/24/24 12:58 MB [id number]) Hip Strength Hip Manual Muscle Testing Left Flexion (L2) 4+ Good+ Abduction 4 Good Right Flexion (L2) 4+ Good+ Abduction 4+ Good+ Knee Strength Knee Manual Muscle Testing B Flexion (S2) 5 Normal Extension (L3) 5 Normal Ankle/Foot Strength Ankle and Foot Manual Muscle Testing B Dorsiflexion (L4) 5 Normal Toe Strength Toe Manual Muscle Testing Left Great Toe Extension 5 Normal Right Great Toe Extension 5 Normal PT-OP-Q Treatments Start: 02/23/24 16:28 Freq: Status: Active Protocol: Document 03/02/24 08:14 MB (Rec: 03/02/24 09:17 MB [id number]) Cardio Equipment Bicycle (Upright) Duration (Minutes) 3 Seat Position 8-9 Therapeutic Exercises Supine Exercises Pelvic realignment exercises Supine Exercise Name HEP Side bilateral Equipment Used Blue ball Reps/Minutes 5 reps, 3 sec hold, all exercises in order Comments Feet together ball squeeze iso , knee opp ankle iso, thigh press down iso Manual Therapy Treatment Consent Patient gave verbal consent for manual Yes treatment Other Other Manual Treatments In side lying: B rib recoil and STM vastus lateralis and hip rotators, PT is concerned about tenderness at surgical site on left, increased tension left vastus lateralis and ITB, pain over right incision is there as well, though less than the left. Improved mobility and less pain after TrP left distal vastus lateralis Self-Care/Home Management Treatment Education Other Education Ed pt that recumbent bike puts hip flexor in impingement position and this may provoke his left anterior hip discomfort and bad spinal positioning. Encouraged upright bike instead, benefits of waffle cushion for sitting PT-OP-T Assessment and Plan Start: 02/23/24 16:28 Freq: Status: Active Protocol: Document 03/02/24 08:14 MB (Rec: 03/02/24 09:17 MB [id number]) Physical Therapy Assessment Rehab Potential Rehabilitation Potential Fair Evaluation Complexity Number of Personal Factors/Comorbidities 1-2 Number of Body Systems Impaired 1-2 Clinical Presentation at Evaluation Evolving Impairments Impairments Activity Tolerance,Balance, Coordination,Functional Activities,Functional Mobility ,Gait,Pain,Posture,ROM, Sensation,Soft Tissue Mobility ,Strength,Transfers Goals 1 Impairment Evidence of imbalance Electrical Timing Device Calibrator Goal (LTG) Pt will perform WNLs on a standardized balance test to decrease fall risk. LTG Duration 6 weeks Two Impairment Lack of LB HEP Retirement Goal (LTG) Pt will perform HEP with I including pelvic realignment, flexibility, core, and strengthening exercises to improve gait and pain. LTG Duration 6 weeks Oswestry Impairment Oswestry reveals 32% impairment Electrical Timing Device Calibrator Goal (LTG) Pt will present with Oswestry score reflecting no more than 20% impairment to reflect improved pain, functioal mobility and quality of life. LTG Duration 6 weeks Assessment Summary Assessment Re-ed pt about positioning on bike to help reduce repetitive impingement position. Most pain on left is over incision site today. Ribs are very tight and rib recoiling is very helpful. TrP work initiated for lateral left leg and pt tolerates well today. Physical Therapy Plan Frequency and Duration Frequency of Treatment 1-2x/wk Duration of treatment (weeks) 6 Plan of Care Start Date 02/24/24 Plan of Care End Date 04/05/24 Therapeutic Interventions Therapeutic Interventions Balance Training,Canalithic Repositioning,Coordination Training,Gait Training,Home Exercise Program,Joint Mobilizations,Manual Therapy, Neuromuscular Re-education, Patient/Caregiver Education, Self-Care/Home Management, Sensory Integration,Soft Tissue Mobilization,Taping, Therapeutic Activities, Therapeutic Exercises Modalities Cold Pack/Ice Massage,Electric Stimulation,Hot Packs, Ultrasound Next Visit Focus/Plan Next Note Type Treatment Note Next Visit Plan Review pelvic realignment exercises, ongoing manual work , consider adding a hamstring, hip rotator, TFL stretch, calf stretch and may have to modify to be gentle: doorway stretch may be good to get across ribs, QL and hip flexor , consider open book.
--- NOTE | 2024-03-10 11:31 | PT.OTN ---
Current Diagnoses Other chronic pain (03/10/24) Lumbago with sciatica, left side (03/10/24) Physical Therapy Treatment Note PT-OP-A Visit Information Start: 02/23/24 16:28 Freq: Status: Active Protocol: Document 03/10/24 10:43 MB (Rec: 03/10/24 11:31 MB [id number]) Out-Patient Physical Therapy Visit Information Visit Information Visit Type Treatment Note Visit Note Progress note by 03/26 Visit Start Time 10:43 Visit Stop Time 11:23 Visit Number 3 Number of ALLIED HEALTH INSTRUCTOR Visits 0 Evaluation Information Evaluation Date 02/24/24 Precautions Precautions Complicated medical history and written in eval, multiple spinal surgeries, left sciatica PT-OP-B Current Condition Start: 02/23/24 16:28 Freq: Status: Active Protocol: Document 02/24/24 09:47 MB (Rec: 02/24/24 10:23 MB [id number]) Current Condition History of Current Condition Onset Date Back pain Current Complaints Pain since 01/2019 History of Current Condition In January 2019, pt had pulling pain in left groin. PMH includes discectomy 1991 and left foot drop afterwards, 2012 right TKA, 2019 and 2020 L4-S1 surgeries, 2021 left THR, several spinal injections in the lumbar spine, multiple PT courses. 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 Pt has left hip pain that starts in the back of the hip and travels down the leg that sounds like sciatica. EMG in the past showed lumbar nerve and sacral nerve issues. Overall, spinal injections were not helpful. He returned to the doctor to ask for a more broad chronic pain management and he remembered that fascial Counterstrain was somewhat helpful in the past. He wonders if PT can try that and/or think of any other ways for pain management. Pt con't with some PT HEP exercises, especially hip abduction in standing. He is riding an e-bike. He likes stretching his back forward, APs in supine, glute squeezes, rolling legs in. Pt con't to go down to his boat once a week and stay in there as it is his [place] cave. His does have sciatic symptoms in the car/with sitting. Pt is staying up on medications as far as pain. His BP was high and he started BP medication. Treatment Goals Patient/Caregiver Goals To see if PT can be helpful or if PT can recommend other chronic pain options. PT-OP-C Subjective Start: 02/23/24 16:28 Freq: Status: Active Protocol: Document 03/10/24 10:43 MB (Rec: 03/10/24 11:31 MB [id number]) OP-PT Subjective Patient Comments Patient Comments Pt states that the left sided leg pain is better. He had two episodes of feeling pain in the left leg that were above the knee or to the knee. He did change to the upright bike rather than the recumbent bike. PT-OP-G Mobility & Gait Start: 02/23/24 16:28 Freq: Status: Active Protocol: Document 02/24/24 09:47 MB (Rec: 02/24/24 10:23 MB [id number]) OP Gait Assessment Comments Gait Comments Stiff, slow and imbalanced gait with right leg functionally shorter than the left with gait, left foot drop and limited arm swing and gait is very careful PT-OP-H Neuro Start: 02/23/24 16:28 Freq: Status: Active Protocol: Document 02/24/24 09:47 MB (Rec: 02/24/24 10:23 MB [id number]) Sensation Evaluation Comments Summary Comments Left medial and dorsal foot tingling and sciatic symptoms down left leg SI area to lateral heel, right lateral knee numbness PT-OP-J Posture/Palpation/Skin Start: 02/23/24 16:28 Freq: Status: Active Protocol: Document 02/24/24 09:47 MB (Rec: 02/24/24 10:23 MB [id number]) Posture Evaluation Comments Posture Comments Pt standing with B shoes donned and full length cork put in right shoe to help functional leg length: right increased Corby angle, forward head, rounded shoulders, increased kyphosis lower thoracic spine, surgical spine changes and decreased lordosis lumbar spine, right iliac crest higher than the right. Pt's spinal mobility is stiff and reduced and did not ask pt to forward flex or extend given high reports of mercedes, history of surgeries and sciatica. Similarly, did not wish to provoke spine, sciatic nerve or hamstrings with Slump B. In supine, decreased SLR B to approximately 65 deg. Decreased PROM B hips with IR most limited and tighter on the left. PT-OP-M Strength Start: 02/23/24 16:28 Freq: Status: Active Protocol: Document 02/24/24 09:47 MB (Rec: 02/24/24 12:58 MB [id number]) Hip Strength Hip Manual Muscle Testing Left Flexion (L2) 4+ Good+ Abduction 4 Good Right Flexion (L2) 4+ Good+ Abduction 4+ Good+ Knee Strength Knee Manual Muscle Testing B Flexion (S2) 5 Normal Extension (L3) 5 Normal Ankle/Foot Strength Ankle and Foot Manual Muscle Testing B Dorsiflexion (L4) 5 Normal Toe Strength Toe Manual Muscle Testing Left Great Toe Extension 5 Normal Right Great Toe Extension 5 Normal PT-OP-Q Treatments Start: 02/23/24 16:28 Freq: Status: Active Protocol: Document 03/10/24 10:43 MB (Rec: 03/10/24 11:31 MB [id number]) Therapeutic Exercises Supine Exercises TFL/ITB stretch with belt Side bilateral Equipment Used Gait belt Reps/Minutes 1 rep and hold 30 sec Hamstring stretch with belt Side bilateral Equipment Used Gait belt Reps/Minutes 1 rep and hold 30 sec Pelvic realignment exercises Supine Exercise Name HEP, cues today for 2nd and 3rd exercises Side bilateral Equipment Used Blue ball Reps/Minutes 5 reps, 3 sec hold, all exercises in order Comments Feet together ball squeeze iso , knee opp ankle iso, thigh press down iso Sitting Exercises Thoracic rotation in sitting Comments Arms across chest Flexion with arms on counter Sitting Exercise Name To replace sitting on bed and stretch over cane Comments Sliding B hands on sink for back flexion Manual Therapy Treatment Consent Patient gave verbal consent for manual Yes treatment Other Other Manual Treatments In supine: STM and positional release left gastrocsoleus, left rectus, left vastus, TrP treatment left vastus and rectus PT-OP-T Assessment and Plan Start: 02/23/24 16:28 Freq: Status: Active Protocol: Document 03/10/24 10:43 MB (Rec: 03/10/24 11:31 MB [id number]) Physical Therapy Assessment Rehab Potential Rehabilitation Potential Fair Evaluation Complexity Number of Personal Factors/Comorbidities 1-2 Number of Body Systems Impaired 1-2 Clinical Presentation at Evaluation Evolving Impairments Impairments Activity Tolerance,Balance, Coordination,Functional Activities,Functional Mobility ,Gait,Pain,Posture,ROM, Sensation,Soft Tissue Mobility ,Strength,Transfers Goals 1 Impairment Evidence of imbalance Fpc Goal (LTG) Pt will perform WNLs on a standardized balance test to decrease fall risk. LTG Duration 6 weeks Two Impairment Lack of LB HEP Immigration Case Worker Goal (LTG) Pt will perform HEP with I including pelvic realignment, flexibility, core, and strengthening exercises to improve gait and pain. LTG Duration 6 weeks Oswestry Impairment Oswestry reveals 32% impairment Immigration Case Worker Goal (LTG) Pt will present with Oswestry score reflecting no more than 20% impairment to reflect improved pain, functioal mobility and quality of life. LTG Duration 6 weeks Assessment Summary Assessment Reviewed exercises that he has been doing at home and removed some and practiced others. Overall improved myofascia where treated left leg this week and last and pt is unable to report strong overall improvement. Chronic pain and postural change presentation are barriers to PT. Physical Therapy Plan Frequency and Duration Frequency of Treatment 1-2x/wk Duration of treatment (weeks) 6 Plan of Care Start Date 02/24/24 Plan of Care End Date 04/05/24 Therapeutic Interventions Therapeutic Interventions Balance Training,Canalithic Repositioning,Coordination Training,Gait Training,Home Exercise Program,Joint Mobilizations,Manual Therapy, Neuromuscular Re-education, Patient/Caregiver Education, Self-Care/Home Management, Sensory Integration,Soft Tissue Mobilization,Taping, Therapeutic Activities, Therapeutic Exercises Modalities Cold Pack/Ice Massage,Electric Stimulation,Hot Packs, Ultrasound Other Referrals/Consults Referrals/Consults Recommended Consider pool physical therapy in the future Next Visit Focus/Plan Next Note Type Treatment Note Next Visit Plan Review exercises as needed, consider doorway stretch may be good to get across ribs, QL and hip flexor, consider open book. Ongoing manual work.
--- NOTE | 2024-03-12 12:15 | PT.OTN ---
Current Diagnoses Other chronic pain (03/12/24) Lumbago with sciatica, left side (03/12/24) Physical Therapy Treatment Note PT-OP-A Visit Information Start: 02/23/24 16:28 Freq: Status: Active Protocol: Document 03/12/24 11:35 SP (Rec: 03/12/24 12:30 SP [id number]) Out-Patient Physical Therapy Visit Information Visit Information Visit Type Treatment Note Visit Note Progress note by 03/26 Visit Start Time 11:35 Visit Stop Time 12:15 Visit Number 4 Number of SPINE SPECIALIST Visits 1 Evaluation Information Evaluation Date 02/24/24 Precautions Precautions Complicated medical history and written in eval, multiple spinal surgeries, left sciatica PT-OP-B Current Condition Start: 02/23/24 16:28 Freq: Status: Active Protocol: Document 02/24/24 09:47 MB (Rec: 02/24/24 10:23 MB [id number]) Current Condition History of Current Condition Onset Date Back pain Current Complaints Pain since 01/2019 History of Current Condition In January 2019, pt had pulling pain in left groin. PMH includes discectomy 1991 and left foot drop afterwards, 2012 right TKA, 2019 and 2020 L4-S1 surgeries, 2021 left THR, several spinal injections in the lumbar spine, multiple PT courses. 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 Pt has left hip pain that starts in the back of the hip and travels down the leg that sounds like sciatica. EMG in the past showed lumbar nerve and sacral nerve issues. Overall, spinal injections were not helpful. He returned to the doctor to ask for a more broad chronic pain management and he remembered that fascial Counterstrain was somewhat helpful in the past. He wonders if PT can try that and/or think of any other ways for pain management. Pt con't with some PT HEP exercises, especially hip abduction in standing. He is riding an e-bike. He likes stretching his back forward, APs in supine, glute squeezes, rolling legs in. Pt con't to go down to his boat once a week and stay in there as it is his man cave. His does have sciatic symptoms in the car/with sitting. Pt is staying up on medications as far as pain. His BP was high and he started BP medication. Treatment Goals Patient/Caregiver Goals To see if PT can be helpful or if PT can recommend other chronic pain options. PT-OP-C Subjective Start: 02/23/24 16:28 Freq: Status: Active Protocol: Document 03/12/24 11:35 SP (Rec: 03/12/24 12:30 SP [id number]) OP-PT Subjective Patient Comments Patient Comments Pt reports hasn't had the pain from his R hip down lateral leg since last tx but still having pain over lateral R calf, ITB areas points to. PT-OP-G Mobility & Gait Start: 02/23/24 16:28 Freq: Status: Active Protocol: Document 02/24/24 09:47 MB (Rec: 02/24/24 10:23 MB [id number]) OP Gait Assessment Comments Gait Comments Stiff, slow and imbalanced gait with right leg functionally shorter than the left with gait, left foot drop and limited arm swing and gait is very careful PT-OP-H Neuro Start: 02/23/24 16:28 Freq: Status: Active Protocol: Document 02/24/24 09:47 MB (Rec: 02/24/24 10:23 MB [id number]) Sensation Evaluation Comments Summary Comments Left medial and dorsal foot tingling and sciatic symptoms down left leg SI area to lateral heel, right lateral knee numbness PT-OP-J Posture/Palpation/Skin Start: 02/23/24 16:28 Freq: Status: Active Protocol: Document 02/24/24 09:47 MB (Rec: 02/24/24 10:23 MB [id number]) Posture Evaluation Comments Posture Comments Pt standing with B shoes donned and full length cork put in right shoe to help functional leg length: right increased Corby angle, forward head, rounded shoulders, increased kyphosis lower thoracic spine, surgical spine changes and decreased lordosis lumbar spine, right iliac crest higher than the right. Pt's spinal mobility is stiff and reduced and did not ask pt to forward flex or extend given high reports of mercedes, history of surgeries and sciatica. Similarly, did not wish to provoke spine, sciatic nerve or hamstrings with Slump B. In supine, decreased SLR B to approximately 65 deg. Decreased PROM B hips with IR most limited and tighter on the left. PT-OP-M Strength Start: 02/23/24 16:28 Freq: Status: Active Protocol: Document 02/24/24 09:47 MB (Rec: 02/24/24 12:58 MB [id number]) Hip Strength Hip Manual Muscle Testing Left Flexion (L2) 4+ Good+ Abduction 4 Good Right Flexion (L2) 4+ Good+ Abduction 4+ Good+ Knee Strength Knee Manual Muscle Testing B Flexion (S2) 5 Normal Extension (L3) 5 Normal Ankle/Foot Strength Ankle and Foot Manual Muscle Testing B Dorsiflexion (L4) 5 Normal Toe Strength Toe Manual Muscle Testing Left Great Toe Extension 5 Normal Right Great Toe Extension 5 Normal PT-OP-Q Treatments Start: 02/23/24 16:28 Freq: Status: Active Protocol: Document 03/12/24 11:35 SP (Rec: 03/12/24 12:30 SP [id number]) Therapeutic Exercises Supine Exercises TFL/ITB stretch with belt Supine Exercise Name TFL/ ITB, Adductor (self added performance) Side bilateral Equipment Used Gait belt on foot Reps/Minutes 2 reps and hold 30 sec Hamstring stretch with belt Side bilateral Equipment Used Gait belt Reps/Minutes 2 rep and hold 30 sec Sidelying Exercises open book Sidelying Exercise Name added to HEP /c HO Side bilateral Reps/Minutes x5, pause 5 SH Comments cued painfree range for scapular and mid back mobility , pec stretch Sitting Exercises Thoracic rotation in sitting Side bilateral Resistance TB #3 [place] /c HEP Reps/Minutes x10 Comments Arms across chest vs out front - reports better front pnfree range Flexion with arms on counter Sitting Exercise Name Good form and reports better stretch hands front on cane- wtshift fwd LS Equipment Used 1. standing counter/sink stretch (not much stretch) 2. better- sit cane Reps/Minutes x5 reps Comments found hands on cane straight back wt shift fwd- pfree LB stretch- good form Standing Exercises hip flexor stretch Standing Exercise Name added to HEP /c HO Side bilateral Reps/Minutes 30 sec hold Comments cued head up, tall posture, wt shift into front leg, no LB arch- good respo hip abduction Side bilateral Reps/Minutes x10 Comments cued taller midline posture, TA, tolerant ROM Manual Therapy Treatment Consent Patient gave verbal consent for manual Yes treatment Other Other Manual Treatments In supine: positional release: STM cross fiber friction/ rolling/ cupping - left lateral gastrocsoleus, left rectus, left vastus lateralis PT-OP-T Assessment and Plan Start: 02/23/24 16:28 Freq: Status: Active Protocol: Document 03/12/24 11:35 SP (Rec: 03/12/24 12:30 SP [id number]) Physical Therapy Assessment Goals 1 Impairment Evidence of imbalance Technology Administrator Goal (LTG) Pt will perform WNLs on a standardized balance test to decrease fall risk. LTG Duration 6 weeks Two Impairment Lack of LB HEP Impairment 10/02/23 - R hip flexion MMT 3+/ 5 Technology Administrator Goal (LTG) Pt will perform HEP with I including pelvic realignment, flexibility, core, and strengthening exercises to improve gait and pain. LTG Duration 6 weeks Oswestry Impairment Oswestry reveals 32% impairment Impairment IE: PN: Technology Administrator Goal (LTG) Pt will present with Oswestry score reflecting no more than 20% impairment to reflect improved pain, functioal mobility and quality of life. LTG Duration 6 weeks Assessment Summary Assessment Pt reports improved pain reduction post manual lateral L knee. Initiated gentle AROM painfree range open book for TS mobility with reports this feels really good, give me a picture for home. Ed for safety only scapular glide andease TS rotation, no LS rotation compensations with feedback is how it feels. CUes for elongated posture and TA engagement support co contract with ES during seated resisted core ther ex with improved no pain, good tiring work. Good response and form after ed set up and posture correction feedback for hip flexor stretch indoorway added today. Pt demonstrates more upright posture and less/no tension in back and lateral L knee as when came in. Physical Therapy Plan Frequency and Duration Frequency of Treatment 1-2x/wk Duration of treatment (weeks) 6 Plan of Care Start Date 02/24/24 Plan of Care End Date 04/05/24 Therapeutic Interventions Therapeutic Interventions Balance Training,Canalithic Repositioning,Coordination Training,Gait Training,Home Exercise Program,Joint Mobilizations,Manual Therapy, Neuromuscular Re-education, Patient/Caregiver Education, Self-Care/Home Management, Sensory Integration,Soft Tissue Mobilization,Taping, Therapeutic Activities, Therapeutic Exercises Modalities Cold Pack/Ice Massage,Electric Stimulation,Hot Packs, Ultrasound Other Referrals/Consults Referrals/Consults Recommended Consider pool physical therapy in the future Next Visit Focus/Plan Next Note Type Treatment Note Next Visit Plan Review exercises as needed, recheck doorway stretch. POC: Continue progress functional mobility. Ongoing manual work.
--- NOTE | 2024-03-17 11:24 | PT.OTN ---
Current Diagnoses Other chronic pain (03/17/24) Lumbago with sciatica, left side (03/17/24) Physical Therapy Treatment Note PT-OP-A Visit Information Start: 02/23/24 16:28 Freq: Status: Active Protocol: Document 03/17/24 10:39 MB (Rec: 03/17/24 11:18 MB [id number]) Out-Patient Physical Therapy Visit Information Visit Information Visit Type Treatment Note Visit Note Progress note by 03/26 (will likely be on the or 6th when d/cd by primary PT) 2 more treatments Visit Start Time 10:39 Visit Stop Time 11:19 Visit Number 5 Number of FUR GLAZER Visits 0 Evaluation Information Evaluation Date 02/24/24 Precautions Precautions Complicated medical history and written in eval, multiple spinal surgeries, left sciatica PT-OP-B Current Condition Start: 02/23/24 16:28 Freq: Status: Active Protocol: Document 02/24/24 09:47 MB (Rec: 02/24/24 10:23 MB [id number]) Current Condition History of Current Condition Onset Date Back pain Current Complaints Pain since 01/2019 History of Current Condition In January 2019, pt had pulling pain in left groin. PMH includes discectomy 1991 and left foot drop afterwards, 2012 right TKA, 2019 and 2020 L4-S1 surgeries, 2021 left THR, several spinal injections in the lumbar spine, multiple PT courses. 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 Pt has left hip pain that starts in the back of the hip and travels down the leg that sounds like sciatica. EMG in the past showed lumbar nerve and sacral nerve issues. Overall, spinal injections were not helpful. He returned to the doctor to ask for a more broad chronic pain management and he remembered that fascial Counterstrain was somewhat helpful in the past. He wonders if PT can try that and/or think of any other ways for pain management. Pt con't with some PT HEP exercises, especially hip abduction in standing. He is riding an e-bike. He likes stretching his back forward, APs in supine, glute squeezes, rolling legs in. Pt con't to go down to his boat once a week and stay in there as it is his man cave. His does have sciatic symptoms in the car/with sitting. Pt is staying up on medications as far as pain. His BP was high and he started BP medication. Treatment Goals Patient/Caregiver Goals To see if PT can be helpful or if PT can recommend other chronic pain options. PT-OP-C Subjective Start: 02/23/24 16:28 Freq: Status: Active Protocol: Document 03/17/24 10:39 MB (Rec: 03/17/24 11:18 MB [id number]) OP-PT Subjective Patient Comments Patient Comments Pt states that the open book exercise is helpful. Overall, he is not much better as far as pain. PT-OP-G Mobility & Gait Start: 02/23/24 16:28 Freq: Status: Active Protocol: Document 02/24/24 09:47 MB (Rec: 02/24/24 10:23 MB [id number]) OP Gait Assessment Comments Gait Comments Stiff, slow and imbalanced gait with right leg functionally shorter than the left with gait, left foot drop and limited arm swing and gait is very careful PT-OP-H Neuro Start: 02/23/24 16:28 Freq: Status: Active Protocol: Document 02/24/24 09:47 MB (Rec: 02/24/24 10:23 MB [id number]) Sensation Evaluation Comments Summary Comments Left medial and dorsal foot tingling and sciatic symptoms down left leg SI area to lateral heel, right lateral knee numbness PT-OP-J Posture/Palpation/Skin Start: 02/23/24 16:28 Freq: Status: Active Protocol: Document 02/24/24 09:47 MB (Rec: 02/24/24 10:23 MB [id number]) Posture Evaluation Comments Posture Comments Pt standing with B shoes donned and full length cork put in right shoe to help functional leg length: right increased Corby angle, forward head, rounded shoulders, increased kyphosis lower thoracic spine, surgical spine changes and decreased lordosis lumbar spine, right iliac crest higher than the right. Pt's spinal mobility is stiff and reduced and did not ask pt to forward flex or extend given high reports of mercedes, history of surgeries and sciatica. Similarly, did not wish to provoke spine, sciatic nerve or hamstrings with Slump B. In supine, decreased SLR B to approximately 65 deg. Decreased PROM B hips with IR most limited and tighter on the left. PT-OP-M Strength Start: 02/23/24 16:28 Freq: Status: Active Protocol: Document 02/24/24 09:47 MB (Rec: 02/24/24 12:58 MB [id number]) Hip Strength Hip Manual Muscle Testing Left Flexion (L2) 4+ Good+ Abduction 4 Good Right Flexion (L2) 4+ Good+ Abduction 4+ Good+ Knee Strength Knee Manual Muscle Testing B Flexion (S2) 5 Normal Extension (L3) 5 Normal Ankle/Foot Strength Ankle and Foot Manual Muscle Testing B Dorsiflexion (L4) 5 Normal Toe Strength Toe Manual Muscle Testing Left Great Toe Extension 5 Normal Right Great Toe Extension 5 Normal PT-OP-Q Treatments Start: 02/23/24 16:28 Freq: Status: Active Protocol: Document 03/17/24 10:39 MB (Rec: 03/17/24 11:18 MB [id number]) Manual Therapy Treatment Consent Patient gave verbal consent for manual Yes treatment Other Other Manual Treatments Supine with pillow under head and legs: STM and positional release all over to improve fascial mobility and pain, thoracic spine, B pects, glutes, hip rotators, QL, TFL, vastus lateralis, hamstrings and PFs and more work on the left and pt with pain over surgical site PT-OP-T Assessment and Plan Start: 02/23/24 16:28 Freq: Status: Active Protocol: Document 03/17/24 10:39 MB (Rec: 03/17/24 11:18 MB [id number]) Physical Therapy Assessment Rehab Potential Rehabilitation Potential Fair Evaluation Complexity Number of Personal Factors/Comorbidities 1-2 Number of Body Systems Impaired 1-2 Clinical Presentation at Evaluation Evolving Impairments Impairments Activity Tolerance,Balance, Coordination,Functional Activities,Functional Mobility ,Gait,Pain,Posture,ROM, Sensation,Soft Tissue Mobility ,Strength,Transfers Goals 1 Impairment Evidence of imbalance Program Management Specialist Goal (LTG) Pt will perform WNLs on a standardized balance test to decrease fall risk. LTG Duration 6 weeks Two Impairment Lack of LB HEP Fpc Goal (LTG) Pt will perform HEP with I including pelvic realignment, flexibility, core, and strengthening exercises to improve gait and pain. LTG Duration 6 weeks Oswestry Impairment Oswestry reveals 32% impairment Program Management Specialist Goal (LTG) Pt will present with Oswestry score reflecting no more than 20% impairment to reflect improved pain, functioal mobility and quality of life. LTG Duration 6 weeks Assessment Summary Assessment Anticipate two more treatments , one with FUR GLAZER and one with PT . Pt has had many rounds of PT , many progressions of HEP and manual work and he con't with ongoing chronic pain in back and legs, greatest left leg. Recommend con't manual work at d/c. Physical Therapy Plan Frequency and Duration Frequency of Treatment 1-2x/wk Duration of treatment (weeks) 6 Plan of Care Start Date 02/24/24 Plan of Care End Date 04/05/24 Therapeutic Interventions Therapeutic Interventions Balance Training,Canalithic Repositioning,Coordination Training,Gait Training,Home Exercise Program,Joint Mobilizations,Manual Therapy, Neuromuscular Re-education, Patient/Caregiver Education, Self-Care/Home Management, Sensory Integration,Soft Tissue Mobilization,Taping, Therapeutic Activities, Therapeutic Exercises Modalities Cold Pack/Ice Massage,Electric Stimulation,Hot Packs, Ultrasound Other Referrals/Consults Referrals/Consults Recommended Consider pool physical therapy in the future, massage therapy in future Next Visit Focus/Plan Next Note Type Treatment Note Next Visit Plan Review exercises as needed, could add a couple more as appropriate, pt has done so many exercises in the past.
--- NOTE | 2024-03-19 12:14 | PT.OTN ---
Current Diagnoses Other chronic pain (03/19/24) Lumbago with sciatica, left side (03/19/24) Physical Therapy Treatment Note PT-OP-A Visit Information Start: 02/23/24 16:28 Freq: Status: Active Protocol: Document 03/19/24 11:34 SP (Rec: 03/19/24 12:39 SP [id number]) Out-Patient Physical Therapy Visit Information Visit Information Visit Type Treatment Note Visit Note Progress note by 03/26 (will likely be on the or when d/cd by primary PT) 2 more treatments Visit Start Time 11:34 Visit Stop Time 12:14 Visit Number 6 Number of SUPERVISOR/PORT DIRECTOR Visits 1 Evaluation Information Evaluation Date 02/24/24 Precautions Precautions Complicated medical history and written in eval, multiple spinal surgeries, left sciatica PT-OP-B Current Condition Start: 02/23/24 16:28 Freq: Status: Active Protocol: Document 02/24/24 09:47 MB (Rec: 02/24/24 10:23 MB [id number]) Current Condition History of Current Condition Onset Date Back pain Current Complaints Pain since 01/2019 History of Current Condition In January 2019, pt had pulling pain in left groin. PMH includes discectomy 1991 and left foot drop afterwards, 2012 right TKA, 2019 and 2020 L4-S1 surgeries, 2021 left THR, several spinal injections in the lumbar spine, multiple PT courses. 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 Pt has left hip pain that starts in the back of the hip and travels down the leg that sounds like sciatica. EMG in the past showed lumbar nerve and sacral nerve issues. Overall, spinal injections were not helpful. He returned to the doctor to ask for a more broad chronic pain management and he remembered that fascial Counterstrain was somewhat helpful in the past. He wonders if PT can try that and/or think of any other ways for pain management. Pt con't with some PT HEP exercises, especially hip abduction in standing. He is riding an e-bike. He likes stretching his back forward, APs in supine, glute squeezes, rolling legs in. Pt con't to go down to his boat once a week and stay in there as it is his man cave. His does have sciatic symptoms in the car/with sitting. Pt is staying up on medications as far as pain. His BP was high and he started BP medication. Treatment Goals Patient/Caregiver Goals To see if PT can be helpful or if PT can recommend other chronic pain options. PT-OP-C Subjective Start: 02/23/24 16:28 Freq: Status: Active Protocol: Document 03/19/24 11:34 SP (Rec: 03/19/24 12:39 SP [id number]) OP-PT Subjective Patient Comments Patient Comments Pt reports the open book is working really well and painfree. He reports compliant with stretching and many of old AROM HEP. Requested assist with core and hip strengthen ROM to help get LEs on/off bike (high bar in middle). He reported already did his open book and seated TS rotation. PT-OP-G Mobility & Gait Start: 02/23/24 16:28 Freq: Status: Active Protocol: Document 02/24/24 09:47 MB (Rec: 02/24/24 10:23 MB [id number]) OP Gait Assessment Comments Gait Comments Stiff, slow and imbalanced gait with right leg functionally shorter than the left with gait, left foot drop and limited arm swing and gait is very careful PT-OP-H Neuro Start: 02/23/24 16:28 Freq: Status: Active Protocol: Document 02/24/24 09:47 MB (Rec: 02/24/24 10:23 MB [id number]) Sensation Evaluation Comments Summary Comments Left medial and dorsal foot tingling and sciatic symptoms down left leg SI area to lateral heel, right lateral knee numbness PT-OP-J Posture/Palpation/Skin Start: 02/23/24 16:28 Freq: Status: Active Protocol: Document 02/24/24 09:47 MB (Rec: 02/24/24 10:23 MB [id number]) Posture Evaluation Comments Posture Comments Pt standing with B shoes donned and full length cork put in right shoe to help functional leg length: right increased Corby angle, forward head, rounded shoulders, increased kyphosis lower thoracic spine, surgical spine changes and decreased lordosis lumbar spine, right iliac crest higher than the right. Pt's spinal mobility is stiff and reduced and did not ask pt to forward flex or extend given high reports of mercedes, history of surgeries and sciatica. Similarly, did not wish to provoke spine, sciatic nerve or hamstrings with Slump B. In supine, decreased SLR B to approximately 65 deg. Decreased PROM B hips with IR most limited and tighter on the left. PT-OP-M Strength Start: 02/23/24 16:28 Freq: Status: Active Protocol: Document 02/24/24 09:47 MB (Rec: 02/24/24 12:58 MB [id number]) Hip Strength Hip Manual Muscle Testing Left Flexion (L2) 4+ Good+ Abduction 4 Good Right Flexion (L2) 4+ Good+ Abduction 4+ Good+ Knee Strength Knee Manual Muscle Testing B Flexion (S2) 5 Normal Extension (L3) 5 Normal Ankle/Foot Strength Ankle and Foot Manual Muscle Testing B Dorsiflexion (L4) 5 Normal Toe Strength Toe Manual Muscle Testing Left Great Toe Extension 5 Normal Right Great Toe Extension 5 Normal PT-OP-Q Treatments Start: 02/23/24 16:28 Freq: Status: Active Protocol: Document 03/19/24 11:34 SP (Rec: 03/19/24 12:39 SP [id number]) Therapeutic Exercises Supine Exercises LTR Supine Exercise Name TA LTR- warm up in am- self HEP reviewed for LB and core fac Side bilateral Resistance AROM Reps/Minutes 2x10 Comments occ cue for rain draw in, slow pacing ROM tolerant for hips and core eng. core knee&hip flexion Supine Exercise Name long leg KTC- added to HEP Side bilateral Resistance AROM alternate BLEs Reps/Minutes x10 Comments cued TA draw in /c back toward table- neutral spine Sidelying Exercises open book Side bilateral Reps/Minutes x5, pause 5 SH Comments cued painfree range for scapular and mid back mobility , pec stretch Standing Exercises hip circles Standing Exercise Name Hip circular articular nikolai: LE on/off bike Side bilateral Resistance added to HEP /c HO Equipment Used wedge tall positioning, BUE on rail Reps/Minutes x10 Comments cues for slight flexed spine/ neutral pelvis & spine, knee flexion, circumdu hip abduction Side bilateral Reps/Minutes x10 Comments cued taller midline posture, TA, tolerant ROM PT-OP-T Assessment and Plan Start: 02/23/24 16:28 Freq: Status: Active Protocol: Document 03/19/24 11:34 SP (Rec: 03/19/24 12:39 SP [id number]) Physical Therapy Assessment Goals 1 Impairment Evidence of imbalance Halfway Goal (LTG) Pt will perform WNLs on a standardized balance test to decrease fall risk. LTG Duration 6 weeks Two Impairment Lack of LB HEP Impairment 10/02/23 - R hip flexion MMT 3+/ 5 Halfway Goal (LTG) Pt will perform HEP with I including pelvic realignment, flexibility, core, and strengthening exercises to improve gait and pain. LTG Duration 6 weeks Oswestry Impairment Oswestry reveals 32% impairment Impairment IE: PN: Halfway Goal (LTG) Pt will present with Oswestry score reflecting no more than 20% impairment to reflect improved pain, functioal mobility and quality of life. LTG Duration 6 weeks Assessment Summary Assessment Pt good response to discussion and performance of stretching and addition of core LE flex/ ext to improve back health, needs 1 LE touch table for core stability. Progressed standing hip ROM circular articulating rotation to support improved performance getting his legs over bike seat. Cues for back positioning alignment and TA engagement for safety back health. Education given for items lift leg over at this time and slowly elevate for increase hip AROM, past hip abd AROM therex has supported this initial ROM but circular hip rotation progression today . PRovided HOs for safety set up and direction movement improved no pain and better understanding needed more knee flexion awareness lessened recruitment of back. Physical Therapy Plan Next Visit Focus/Plan Next Note Type Treatment Note Next Visit Plan Review hip circular rotation standing for LEs on/of bike with back alignment. REview in person resisted TS rotation HEP next tx.
--- NOTE | 2024-03-30 11:30 | PT.OTN ---
Current Diagnoses Other chronic pain (03/30/24) Lumbago with sciatica, left side (03/30/24) Physical Therapy Treatment Note PT-OP-A Visit Information Start: 02/23/24 16:28 Freq: Status: Active Protocol: Document 03/30/24 10:47 MB (Rec: 03/30/24 11:30 MB [id number]) Out-Patient Physical Therapy Visit Information Visit Information Visit Type Treatment Note Visit Start Time 10:47 Visit Stop Time 11:27 Visit Number 7 Number of SPICE MIXER Visits 0 Evaluation Information Evaluation Date 02/24/24 Precautions Precautions Complicated medical history and written in eval, multiple spinal surgeries, left sciatica PT-OP-B Current Condition Start: 02/23/24 16:28 Freq: Status: Active Protocol: Document 02/24/24 09:47 MB (Rec: 02/24/24 10:23 MB [id number]) Current Condition History of Current Condition Onset Date Back pain Current Complaints Pain since 01/2019 History of Current Condition In January 2019, pt had pulling pain in left groin. PMH includes discectomy 1991 and left foot drop afterwards, 2012 right TKA, 2019 and 2020 L4-S1 surgeries, 2021 left THR, several spinal injections in the lumbar spine, multiple PT courses. 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 Pt has left hip pain that starts in the back of the hip and travels down the leg that sounds like sciatica. EMG in the past showed lumbar nerve and sacral nerve issues. Overall, spinal injections were not helpful. He returned to the doctor to ask for a more broad chronic pain management and he remembered that fascial Counterstrain was somewhat helpful in the past. He wonders if PT can try that and/or think of any other ways for pain management. Pt con't with some PT HEP exercises, especially hip abduction in standing. He is riding an e-bike. He likes stretching his back forward, APs in supine, glute squeezes, rolling legs in. Pt con't to go down to his boat once a week and stay in there as it is his man cave. His does have sciatic symptoms in the car/with sitting. Pt is staying up on medications as far as pain. His BP was high and he started BP medication. Treatment Goals Patient/Caregiver Goals To see if PT can be helpful or if PT can recommend other chronic pain options. PT-OP-C Subjective Start: 02/23/24 16:28 Freq: Status: Active Protocol: Document 03/30/24 10:47 MB (Rec: 03/30/24 11:30 MB [id number]) OP-PT Subjective Patient Comments Patient Comments Pt states that some things are good including lateral left leg pain. Back pain is similar and con't to be bad. The exercises this PT course are pretty good. He pick and chooses what he thinks works. PT-OP-G Mobility & Gait Start: 02/23/24 16:28 Freq: Status: Active Protocol: Document 02/24/24 09:47 MB (Rec: 02/24/24 10:23 MB [id number]) OP Gait Assessment Comments Gait Comments Stiff, slow and imbalanced gait with right leg functionally shorter than the left with gait, left foot drop and limited arm swing and gait is very careful PT-OP-H Neuro Start: 02/23/24 16:28 Freq: Status: Active Protocol: Document 02/24/24 09:47 MB (Rec: 02/24/24 10:23 MB [id number]) Sensation Evaluation Comments Summary Comments Left medial and dorsal foot tingling and sciatic symptoms down left leg SI area to lateral heel, right lateral knee numbness PT-OP-J Posture/Palpation/Skin Start: 02/23/24 16:28 Freq: Status: Active Protocol: Document 02/24/24 09:47 MB (Rec: 02/24/24 10:23 MB [id number]) Posture Evaluation Comments Posture Comments Pt standing with B shoes donned and full length cork put in right shoe to help functional leg length: right increased Corby angle, forward head, rounded shoulders, increased kyphosis lower thoracic spine, surgical spine changes and decreased lordosis lumbar spine, right iliac crest higher than the right. Pt's spinal mobility is stiff and reduced and did not ask pt to forward flex or extend given high reports of mercedes, history of surgeries and sciatica. Similarly, did not wish to provoke spine, sciatic nerve or hamstrings with Slump B. In supine, decreased SLR B to approximately 65 deg. Decreased PROM B hips with IR most limited and tighter on the left. PT-OP-M Strength Start: 02/23/24 16:28 Freq: Status: Active Protocol: Document 02/24/24 09:47 MB (Rec: 02/24/24 12:58 MB [id number]) Hip Strength Hip Manual Muscle Testing Left Flexion (L2) 4+ Good+ Abduction 4 Good Right Flexion (L2) 4+ Good+ Abduction 4+ Good+ Knee Strength Knee Manual Muscle Testing B Flexion (S2) 5 Normal Extension (L3) 5 Normal Ankle/Foot Strength Ankle and Foot Manual Muscle Testing B Dorsiflexion (L4) 5 Normal Toe Strength Toe Manual Muscle Testing Left Great Toe Extension 5 Normal Right Great Toe Extension 5 Normal PT-OP-Q Treatments Start: 02/23/24 16:28 Freq: Status: Active Protocol: Document 03/30/24 10:47 MB (Rec: 03/30/24 11:30 MB [id number]) Therapeutic Exercises Standing Exercises Racquet ball massage left TFL and glutes Comments TrP massage against the wall today Manual Therapy Treatment Consent Patient gave verbal consent for manual Yes treatment Other Other Manual Treatments Pt in right side lying: STM left TFL, hamstrings, hip rotators and rectus femoris, TrP left fibularis longus, TFL , vastus lateralist anterior and posterior and hip rotators Self-Care/Home Management Treatment Education Other Education See assessment comments, ongoing ergonomic ed and benefits of fascial Counterstrain trial with outside provider, ed in benefits of using racquet ball for self-massage PT-OP-T Assessment and Plan Start: 02/23/24 16:28 Freq: Status: Active Protocol: Document 03/30/24 10:47 MB (Rec: 03/30/24 11:30 MB [id number]) Physical Therapy Assessment Rehab Potential Rehabilitation Potential Fair Evaluation Complexity Number of Personal Factors/Comorbidities 1-2 Number of Body Systems Impaired 1-2 Clinical Presentation at Evaluation Evolving Impairments Impairments Activity Tolerance,Balance, Coordination,Functional Activities,Functional Mobility ,Gait,Pain,Posture,ROM, Sensation,Soft Tissue Mobility ,Strength,Transfers Goals 1 Impairment Evidence of imbalance Retirement Goal (LTG) Pt will perform WNLs on a standardized balance test to decrease fall risk. 03/30/24: No overall improvements in symptoms and so balance not pushed today given antalgic gait. LTG Duration No improvement Two Impairment Lack of LB HEP Retirement Goal (LTG) Pt will perform HEP with I including pelvic realignment, flexibility, core, and strengthening exercises to improve gait and pain. 03/30/24: Pt is performing some exercises from HEP this treatment course and he picks the ones that seem to be the most helpful. LTG Duration Improvement Oswestry Impairment Oswestry reveals 32% impairment Retirement Goal (LTG) Pt will present with Oswestry score reflecting no more than 20% impairment to reflect improved pain, functional mobility and quality of life. 03/30/24: Oswestry score is 42% and is not better, but worse. LTG Duration No improvement Assessment Summary Assessment Pt con't to describe PT and other medical therapies such as pain clinic and gabapentin as whack a mole. Short PT course has not made an overal change in symptomology. His presentation is complex: history of three back surgeries including two and a left hip placement in 5 years, old right knee replacement and right foot surgery and increased body mass. He always works hard as far as PT exercises and does his own work at the gym and on his bike in good weather. PT has been persistent in educating patient about big man in a sail boat as far as chosen postural position for relaxation in his man cave that is a docked boat as an overall ergonomic accomplice to his pain. Similarly, PT has also been persistent in education about patient using an upright stationary bike as opposed to recumbent bike as far as spinal postural/sacral sitting and ergonomics. He has heard PT and will make his own determination. PT had hoped to really help patient and will refer back to provider. Did provide info on another manual PT option for fascial Counterstrain on a more consistent level where more time can be spent on this . Thank for this referral. Jose Roberto is such a kind and compliant patient overall. Physical Therapy Plan Frequency and Duration Frequency of Treatment 1-2x/wk Duration of treatment (weeks) 6 Plan of Care Start Date 02/24/24 Plan of Care End Date 04/05/24 Therapeutic Interventions Therapeutic Interventions Balance Training,Canalithic Repositioning,Coordination Training,Gait Training,Home Exercise Program,Joint Mobilizations,Manual Therapy, Neuromuscular Re-education, Patient/Caregiver Education, Self-Care/Home Management, Sensory Integration,Soft Tissue Mobilization,Taping, Therapeutic Activities, Therapeutic Exercises Modalities Cold Pack/Ice Massage,Electric Stimulation,Hot Packs, Ultrasound Other Referrals/Consults Referrals/Consults Recommended Consider pool physical therapy in the future, massage therapy in future Next Visit Focus/Plan Next Note Type Treatment Note Next Visit Plan Review exercises as needed, could add a couple more as appropriate, pt has done so many exercises in the past.
== END 2024-04-06 08:39 | disposition home or self-care (01) ==
LOC: PHYS 10:45
PROVIDERS: Family Provider Internal Medicine; PCP Internal Medicine; Referring Provider Internal Medicine; Visit Provider Internal Medicine
DX: M54.42 Lumbago with sciatica, left side (principal); G89.29 Other chronic pain
CPT/HCPCS: 97110; 97140; 97161; 97535

== ENCOUNTER → 2024-11-29 10:38 | Outpatient (CLI) | payer MEDICARE, SELFPAY ==
[2021-08-28 17:41] VITALS: BMI 31.6
--- NOTE | 2024-11-29 10:40 | DI.MRI.S_ITS ---
PROCEDURE: MR THORACIC SPINE WO CON INDICATIONS: PAIN in upper back TECHNIQUE: Noncontrast sagittal T1 spine echo and T2 fast spin echo, sagittal STIR, and T2 fast spin echo through the thoracic spine. COMPARISON: None. FINDINGS: Image quality: Excellent. Alignment and Curvature: Mild dextrocurvature. Bone Marrow: Mildly decreased signal within the T2 vertebral body on both T1 and T2 weighted sequences. No significant stir hyperintense signal.. No acute vertebral body compression fractures. Partial ankylosis of the T6 and T7 vertebral bodies anteriorly. Spinal Cord: Visualized spinal cord is normal in size and signal. Paraspinous Soft Tissues: No paravertebral masses. Small hiatal hernia. Miscellaneous: Multilevel disc desiccation and height loss. Multilevel facet arthropathy. Mild left neural foraminal stenosis at T11-T12. Otherwise, no significant central canal or neural foraminal stenosis. IMPRESSION: 1. Multilevel degenerative changes of the thoracic spine without significant central canal or neural foraminal stenosis. 2. Mildly decreased T1 and T2 signal within the T2 vertebral body of uncertain etiology. No abnormal STIR signal, metastatic lesion would be expected have hyperintense signal on STIR. Dictated by: Jony Rosa M.D. on 11/29/2024 at 12:11 Approved by: Jony Rosa M.D. on 11/29/2024 at 12:16
== END ==
PROVIDERS: Family Provider Internal Medicine; PCP Internal Medicine; Referring Provider Internal Medicine; Visit Provider Pain Medicine Pain Medicine
DX: M96.1 Postlaminectomy syndrome, not elsewhere classified (principal); M43.24 Fusion of spine, thoracic region; M48.04 Spinal stenosis, thoracic region; M47.814 Spondylosis without myelopathy or radiculopathy, thoracic region; K44.9 Diaphragmatic hernia without obstruction or gangrene
CPT/HCPCS: 72146

== ENCOUNTER → 2025-05-17 13:26 | Outpatient (CLI) | payer MEDICARE, SELFPAY ==
[2021-08-28 17:41] VITALS: BMI 31.6
--- NOTE | 2025-05-17 13:27 | DI.ECHO.S_ITS ---
[facility] : : [id number] : : [place] : : [id number] : : Phone: [phone] Echocardiogram Report + + :Name: DIDIER FOSTER Study Date: 05/17/2025 Height: 75 in : :[facility] ReadingLocation: Weight: 243 lb : : Gender: Male BSA: 2.4 m2 : :: 1950 Age: 74 yrs BP: 139/90 mmHg: :Reason For Study: Heart murmur : :Ordering Physician: ELYSE : :JONNA Performed By: Henok Garcia : :Referring: JONNA PAPPAS : + + Interpretation Summary 1) Normal left ventricular thickness, size, wall motion, and systolic function (EF 55-60%). 2) Normal right ventricular size and function. 3) There is mild aortic stenosis (valve area 1.9cm2, mean gradient 12mmHg). 4) No prior Echo available for comparison. Procedure: A two-dimensional transthoracic echocardiogram with color flow and Doppler was performed. The study quality was technically adequate. The patient had an echocardiogram, but there is no comparison study available. The patient had frequent PVCs during the exam. Left Ventricle: The left ventricle is normal in size. Left ventricular wall thickness is normal. Overall left ventricular systolic function is preserved. The ejection fraction is estimated to be 55-60%. Left ventricular wall motion is normal. Grade I diastolic dysfunction with normal left atrial pressure. Right Ventricle: The right ventricle is normal in size and function. Atria: The left atrium is moderately dilated. Right atrial size is normal. Mitral Valve: The mitral valve leaflets appear to open well. There is no mitral valve stenosis. There is trace mitral regurgitation. Aortic Valve: The aortic valve is trileaflet. The aortic valve is moderately calcified. Right and non-coronary cusp appears restricted in movement. There is mild aortic stenosis. The calculated aortic valve area is 1.9 cm2. The peak aortic velocity is 2.2 m/sec. The aortic valve mean gradient is 12 mmHg. sev ratio: 0.45. There is trace aortic regurgitation. Tricuspid Valve: The tricuspid valve is not well visualized, but is grossly normal. There is mild tricuspid regurgitation. The right ventricular systolic pressure is estimated to be at least 24 mmHg based on an estimated right atrial pressure of 3 mm Hg. Pulmonic Valve: The pulmonic valve is not well seen, but is grossly normal. There is mild pulmonic regurgitation. Great Vessels: There is aortic root sclerosis/calcification. The aortic root is normal size. The ascending aorta is normal in size. The aortic arch could not be visualized. The pulmonary artery is normal size. The IVC is of normal diameter and collapses greater than 50% with a sniff. This suggests a low right atrial pressure of 3 mm Hg. Pericardium/ Pleura There is no pericardial effusion. MMode/2D Measurements & Calculations LVIDd: 4.9 cm LVOT diam: 2.3 cm LVIDs: 2.9 cm Ao root diam: 3.4 cm FS: 40.7 % asc Aorta Diam: 4.1 cm EPSS: 0.84 cm IVSd: 1.1 cm LVPWd: 1.0 cm LV german. diameter/BSA (cm/m^2): 2.1 LV sys. diameter/BSA (cm/m^2): 1.2 LA A2 area: 29.8 cm2 RA area: 14.1 cm2 LA A4 area: 30.0 cm2 IVC diam: 2.0 cm LA length (vol): 7.0 cm LA vol: 107.9 ml LA vol index: 45.3 ml/m2 RVD1 (basal): 2.7 cm RVD2 (mid): 1.8 cm TAPSE: 2.7 cm Doppler Measurements & Calculations Ao V2 max: 219.6 cm/sec LVOT Max Ehsan: 85.4 cm/sec Ao V2 mean: 167.1 cm/sec LV V1 max P.9 mmHg Ao max P.3 mmHg LV V1 VTI: 18.8 cm Ao mean P.0 mmHg SANTO(I,D): 1.9 cm2 Ao V2 VTI: 42.0 cm SANTO(V,D): 1.6 cm2 sev ratio: 0.45 SANTO indexed to BSA (cm^2/m^2): 0.79 MV E max ehsan: 51.3 cm/sec TR max ehsan: 230.5 cm/sec MV A max ehsan: 70.1 cm/sec TR max P.2 mmHg MV E/A: 0.73 PA V2 max: 123.9 cm/sec Med Peak E' Ehsan: 4.2 cm/sec PA V2 mean: 84.8 cm/sec E/E' med: 12.2 PA mean P.2 mmHg Lat Peak E' Ehsan: 7.7 cm/sec PA pr(Accel): 22.5 mmHg E/E' lat: 6.7 E/e' average: 9.4 MV dec time: 0.25 sec SV(LVOT): 79.2 ml Qp/Qs (V,Ao): 1.0/3.3 Qp/Qs (V,LVOT): 1.7/1.0 Reading Physician:03:43 PM
== END ==
LOC: ECHO 13:27
PROVIDERS: PCP Internal Medicine; Referring Provider Internal Medicine; Visit Provider Internal Medicine
DX: I08.2 Rheumatic disorders of both aortic and tricuspid valves (principal); R01.1 Cardiac murmur, unspecified
CPT/HCPCS: 93306